=== PATIENT | male | born 1955 | race Caucasian/White ===

== ENCOUNTER 2020-05-08 21:03 | Emergency (ER) | payer OTHER, SELFPAY ==
[2020-05-08 21:13] VITALS: BP 134/55; PULSE 72; RESP 20; TEMP 37; O2SAT 97; BMI 32.4
[2020-05-08 21:26] VITALS: BP 134/55; PULSE 68; RESP 17; TEMP 36.6; O2SAT 98
--- NOTE | 2020-05-08 21:28 | ECG_ITS ---
Test Reason : ACUTE HEADACHE Blood Pressure : / mmHG Vent. Rate : 071 BPM Atrial Rate : 071 BPM P-R Int : 162 ms QRS Dur : 106 ms QT Int : 404 ms P-R-T Axes : -06 -46 -01 degrees QTc Int : 439 ms Normal sinus rhythm Left anterior fascicular block Abnormal ECG When compared with ECG of 19-OCT-2019 18:13, Sinus rhythm has replaced Ectopic atrial rhythm Vent. rate has decreased BY 71 BPM Referred By: Laura Angulo Electronically Signed By:MITRA LOPEZ MD
--- NOTE | 2020-05-08 21:29 | ED.HA ---
HPI - Headache General Chief Complaint: Headache Stated Complaint: Dizziness/Headache Time Seen by Provider: 05/08/20 21:15 Source: patient Mode of arrival: ambulatory Limitations: no limitations History of Present Illness HPI Narrative: This is a 65-year-old male with significant past medical history for alcoholic liver cirrhosis, hep C, hypertension, substance abuse, and portal vein thrombosis on anticoagulation Who presents with acute onset of frontal headache that is associated with nausea and photosensitivity but denies any visual blurring / doubling /loss and otherwise denies changes in hearing or speech as well as denies any unilateral numbness /tingling /weakness. Patient states that he took an Advil but it has had little affect. He denies any nasal congestion or runny nose, denies fevers / chills /shortness of breath /chest pain / palpitations / abdominal discomfort. Patient self endorses that he has continued to smoke cigarettes and last had 3 alcoholic beverages earlier in the evening. Related Data Allergies Allergy/AdvReac Type Severity Reaction Status Date / Time No Known Allergies Allergy Verified 05/08/20 21:18 [No Known Allergies*] Review of Systems Review of Systems: Pertinent positives and negatives as stated in HPI and 10 point review of systems otherwise negative. PMFSH Past Medical History Source: nursing notes reviewed Medical History Cirrhosis HTN (hypertension) Social History Social History Alcohol intake: current Smoking Status: Current every day smoker Use of substances other than those prescribed or required for medical reasons: Yes Substance Use Type: Heroin Advance Directives: No Advance Directives Information Provided: Yes Physical Exam Vital Signs: Vital Signs: Vital Signs Temp Pulse Resp BP Pulse Ox 05/08/20 21:26 98 F 68 17 134/55 L 98 05/08/20 21:13 98.6 F 72 20 134/55 L 97 Body Mass Index 32.4 VITAL SIGNS: Reviewed. GENERAL: Well developed, well nourished, in no acute distress. HEAD: Normocephalic/atraumatic, No tenderness noted on palpation over frontal or maxillary sinuses. EYES: PERRLA, EOMI intact without pain, no nystagmus/pallor/icterus noted EARS: Ext canals without abnormality, TMs non-bulging and non-erythematous NOSE: Nares patent bilateral OROPHARYNX: no oral lesions noted, posterior pharynx clear and non-erythematous without noted tonsillar enlargement/erythema/exudates NECK: Supple, no adenopathy LUNGS: Normal breath sounds. No adventitious sounds or accessory muscle use. SpO2<97> CARDIOVASCULAR: Regular rate and rhythm without noted murmurs, no JVD or lower extremity edema. ABDOMEN: Soft, non-tender, non-distended with bowel sounds. No rigidity. No guarding. No palpable masses or hernias noted MUSCULOSKELETAL: No tenderness, deformities, or effusions noted on gross inspection. EXTREMITIES: No cyanosis, clubbing or edema , stigmata of venous stasis with thickened and darkened skin over bilateral lower extremities. SKIN: Inspection of the skin reveals no rashes, ulcerations, jaundice, pallor, or petechiae. NEUROLOGIC: Alert and oriented x 4. Strength and sensation to light touch were grossly intact x 4. Course Course Course Narrative: This is a 65-year-old male with history and clinical presentation concerning for a possible intracranial bleed given new onset of headaches without evidence to support sinus etiology and given history alcohol use and currently on anticoagulation. Review of all investigations is negative for any acute findings, most importantly CT of the head is negative for evidence of intracranial hemorrhage and INR is again noted to be subtherapeutic when compared to 04/03/2020. Suspect patient is likely for getting his medication IC continues to consume alcohol and use illicit substances. On re-evaluation patient states that his symptoms have begun to improve and he was counseled on resuming his blood thinner and following up with his primary care provider. Patient is discharged to home in stable condition. MDM - Headache Lab Data Result diagrams: 05/08/20 22:18 05/08/20 22:18 Labs: Lab Results 05/08/20 05/08/20 05/08/20 Range/Units 22:18 22:18 22:18 WBC 2.6 L (4.8-10.8) X10*3/uL RBC 3.78 L (4.60-5.80) X10*6/uL Hgb 11.6 L (14.0-18.0) g/dl Hct 35.4 L (42-52) % MCV 93.7 (80-98) fL MCH 30.7 (27.0-33.0) pg MCHC 32.8 (31.0-36.0) g/dl RDW 13.2 (11.0-16.0) % Plt Count 68 L (160-400) X10*3/uL MPV 10.7 (9.4-12.4) fL Immature Gran % (Auto) 0.4 (0.0-0.4) % Neut % (Auto) 59.2 (45-73) % Lymph % (Auto) 24.3 (20-40) % Branch % (Auto) 8.2 (2-11) % Eos % (Auto) 6.3 H (0-4) % Baso % (Auto) 1.6 (0-2) % Lymph # (Auto) 0.6 L (1.2-4.9) X10*3/uL Branch # (Auto) 0.2 (0.1-1.2) X10*3/uL Eos # (Auto) 0.2 (0.0-0.4) X10*3/uL Baso # (Auto) 0.0 (0.0-0.2) X10*3/uL Abs Immat Gran (auto) 0.01 (0.00-0.03) X10*3/uL Absolute Neuts (auto) 1.5 L (2.0-8.3) X10*3/uL Absolute Nucleated RBC 0.000 (0.0-0.012) X10*3/uL Nucleated RBC % (auto) 0.0 (0.0-0.2) /100WBC Smear Tech's Comments VERIFIED PT 16.2 H (10.8-13.0) SEC INR 1.4 H (0.9-1.1) Sodium 138 (135-145) mmol/L Potassium 3.9 (3.3-5.1) mmol/l Chloride 108 (96-108) mmol/L Carbon Dioxide 22 (22-29) mmol/L Anion Gap 12 (12-20) BUN 10 (9-16) mg/dL Creatinine 0.79 (0.5-1.4) mg/dL Estim Creat Clear Calc 93.2 Estimated GFR > 60 Random Glucose 97 (60-115) mg/dL Calcium 7.9 L (8.4-10.2) mg/dL Total Bilirubin 0.9 (0.0-1.0) mg/dL AST 30 (5-37) U/L ALT 16 (0-40) U/L Alkaline Phosphatase 91 (39-117) U/L Total Protein 6.4 L (6.5-8.0) g/dL Albumin 3.3 L (3.5-5.0) g/dL ECG Data Attestation: I personally reviewed and interpreted this ECG as follows: Prior ECG tracings: not available for review Interpretation: Normal sinus rhythm, HR- 71, no evidence of acute ischemia, CA/QTC are within normal limits, and QRS-106 Discharge Plan Discharge Clinical Impression: Headache Qualifiers: Headache type: unspecified Headache chronicity pattern: unspecified pattern Intractability: not intractable Qualified Code(s): R51.9 - Headache, unspecified Patient Disposition: Home, Self-Care Instructions: General Headache (ED), Warfarin (By mouth) Additional Instructions: Recommend taking [id number] Tylenol and/or ibuprofen for headache control and consider increasing fluid hydration. Please follow-up with your primary care provider by calling the office in the morning and setting up an appointment. The patient and/or family acknowledge understanding of results (as applicable), diagnosis, treatment plan, need for follow up, and symptoms that should prompt a return to the emergency room. Referrals: Physician,Unknown [Primary Care Provider] - 2 days (For further evaluation of your headache)
--- NOTE | 2020-05-08 21:30 | CT_ITS ---
EXAMINATION: CT HEAD WITHOUT CONTRAST CLINICAL INFORMATION: Headache. On Coumadin. COMPARISON: CT head 03/28/2019 TECHNIQUE: Contiguous axial imaging was performed from the skull base to vertex without intravenous administration of contrast. This CT examination was performed using dose optimization techniques as appropriate, variously including the following: *Automated exposure control *Adjustment of mA and/or kV according to patient size (this includes techniques or standardized protocols for targeted exams where dose is matched to indication/reason for exam; i.e. extremities or head) *Use of iterative reconstruction technique DLP: 738 mGy-cm FINDINGS: There is no evidence of acute intracranial hemorrhage or territorial infarction. No abnormal mass effect or midline shift is seen. Felder to white matter differentiation is well preserved. No extra-axial fluid collections are identified. There is age-appropriate atrophy with prominence of the ventricles and the sulci. There are vascular calcifications of the internal carotid arteries bilaterally. The osseous structures and soft tissues are normal. The mastoid air cells and visualized portions of the paranasal sinuses are well aerated. CT/CT head/brain wo con IMPRESSION: No acute intracranial pathology.
--- NOTE | 2020-05-08 22:07 | XR_ITS ---
EXAMINATION: XR CHEST CLINICAL INFORMATION: Cough COMPARISON: Chest radiograph 10/13/2019 and CTA chest 10/19/2019 TECHNIQUE: Frontal view of the chest was obtained. FINDINGS: Compared with the prior study, lung volumes are improved. Chronic interstitial markings remain present. Heart size within normal limits. No evidence of CHF. No acute infiltrates/consolidation, effusions or lung masses seen. XR/XR chest 1V IMPRESSION: No acute intrathoracic disease
[2020-05-08 22:27] LABS: Basophils Percent Auto 1.6 % (0-2); Eosinophils Absolute Auto 0.2 X10*3/uL (0.0-0.4); Eosinophils Percent Auto 6.3 % (0-4); Hematocrit 35.4 % (42-52); Hemoglobin 11.6 g/dl (14.0-18.0); Imm Gran Abs Auto 0.01 X10*3/uL (0.00-0.03); Imm Gran Pct Auto 0.4 % (0.0-0.4); Lymphocytes Absolute Auto 0.6 X10*3/uL (1.2-4.9); Lymphocytes Percent Auto 24.3 % (20-40); MANUAL DIFF FLAG SCAN; Mean Corpuscular HGB Conc 32.8 g/dl (31.0-36.0); Mean Corpuscular Hemoglobin 30.7 pg (27.0-33.0); Mean Corpuscular Volume 93.7 fL (80-98); Mean Platelet Volume 10.7 fL (9.4-12.4); Monocytes Absolute Auto 0.2 X10*3/uL (0.1-1.2); Monocytes Percent Auto 8.2 % (2-11); Neutrophils Absolute Auto 1.5 X10*3/uL (2.0-8.3); Neutrophils Percent Auto 59.2 % (45-73); Red Blood Count 3.78 X10*6/uL (4.60-5.80); Red Cell Distribution Width 13.2 % (11.0-16.0); SCAN SMEAR FLAG 1; White Blood Count 2.6 X10*3/uL (4.8-10.8)
[2020-05-08 22:34] LABS: INTERNATIONAL NORM RATIO 1.4 (0.9-1.1); Prothrombin Time 16.2 SEC (10.8-13.0)
[2020-05-08 22:46] LABS: Platelet Count 68 X10*3/uL (160-400); SLIDE REVIEW VERIFIED
[2020-05-08 22:50] LABS: Alanine Aminotransferase 16 U/L (0-40); Albumin Level 3.3 g/dL (3.5-5.0); Alkaline Phosphatase 91 U/L (39-117); Anion Gap 12 (12-20); Aspartate Amino Transferase 30 U/L (5-37); Bilirubin Total 0.9 mg/dL (0.0-1.0); Blood Urea Nitrogen 10 mg/dL (9-16); Calcium 7.9 mg/dL (8.4-10.2); Carbon Dioxide 22 mmol/L (22-29); Chloride 108 mmol/L (96-108); Creatinine Clr Calc Pharmacy 93.2; Estimated Glomerular Filt Rate > 60; Glucose Random 97 mg/dL (60-115); Potassium 3.9 mmol/l (3.3-5.1); Sodium 138 mmol/L (135-145); Total Protein 6.4 g/dL (6.5-8.0)
[2020-05-08] MEDS: Acetaminophen 325 MG TABLET 975 MG PO (23:09)
[2020-05-08] MEDS: Ketorolac Tromethamine 15 MG/ML VIAL IM (23:10)
[2020-05-09 00:08] LABS: Glucose Urine UA NEG (NEG); Leukocyte Esterase Urine NEG (NEG); Nitrite Urine NEG (NEG); Urine Blood TRACE (NEG); Urine Ketones NEG (NEG); Urine Protein NEG (NEG-TRACE)
[2020-05-09 00:10] LABS: Appearance Urine CLEAR; Color Urine YELLOW
[2020-05-09 00:19] LABS: Bacteria Urine TRACE /LPF; RBC Urine 0-2 /HPF (0); Squamous Epithelial Cell Urine TRACE /LPF; WBC Urine 0-2 /HPF (0-4)
== END 2020-05-09 01:04 | disposition home or self-care (01) ==
PROVIDERS: Emergency Provider Student in an Organized Health Care Education/Training Program
DX: R51.9 Headache, unspecified (principal); R42 Dizziness and giddiness; F11.90 Opioid use, unspecified, uncomplicated; I10 Essential (primary) hypertension; F17.200 Nicotine dependence, unspecified, uncomplicated; Z71.6 Tobacco abuse counseling; Z79.899 Other long term (current) drug therapy
CPT/HCPCS: 36415; 70450; 71045; 80053; 81001; 85025; 85610; 93005; 96372; 99284; J1885

== ENCOUNTER → 2020-05-14 08:46 | Outpatient (BNVA) | payer OTHER, SELFPAY | PROVIDERS: PCP Internal Medicine; Visit Provider Internal Medicine | DX: I26.99 Other pulmonary embolism without acute cor pulmonale (principal); Z51.81 Encounter for therapeutic drug level monitoring; Z79.01 Long term (current) use of anticoagulants | CPT/HCPCS: 85610; 99211 ==

== ENCOUNTER → 2020-05-17 11:09 | Outpatient (BNVA) | payer OTHER, SELFPAY | PROVIDERS: PCP Internal Medicine; Referring Provider Internal Medicine; Visit Provider Internal Medicine | DX: I26.99 Other pulmonary embolism without acute cor pulmonale (principal); Z51.81 Encounter for therapeutic drug level monitoring; Z79.01 Long term (current) use of anticoagulants | CPT/HCPCS: 85610; 99211 ==

== ENCOUNTER → 2020-05-23 10:28 | Outpatient (BNVA) | payer OTHER, SELFPAY | PROVIDERS: PCP Internal Medicine; Visit Provider Internal Medicine | DX: I26.99 Other pulmonary embolism without acute cor pulmonale (principal); Z51.81 Encounter for therapeutic drug level monitoring; Z79.01 Long term (current) use of anticoagulants | CPT/HCPCS: 85610; 99211 ==

== ENCOUNTER → 2020-05-28 09:17 | Outpatient (BNVA) | payer OTHER, SELFPAY | PROVIDERS: PCP Internal Medicine; Visit Provider Internal Medicine | DX: I26.99 Other pulmonary embolism without acute cor pulmonale (principal); Z51.81 Encounter for therapeutic drug level monitoring; Z79.01 Long term (current) use of anticoagulants | CPT/HCPCS: 85610; 99211 ==

== ENCOUNTER → 2020-06-04 09:33 | Outpatient (BNVA) | payer OTHER, SELFPAY | PROVIDERS: PCP Internal Medicine; Visit Provider Internal Medicine | DX: I26.99 Other pulmonary embolism without acute cor pulmonale (principal); Z79.01 Long term (current) use of anticoagulants; Z51.81 Encounter for therapeutic drug level monitoring | CPT/HCPCS: 85610; 99211 ==

== ENCOUNTER → 2020-06-11 09:49 | Outpatient (BNVA) | payer OTHER, SELFPAY | PROVIDERS: PCP Internal Medicine; Visit Provider Internal Medicine | DX: I26.99 Other pulmonary embolism without acute cor pulmonale (principal); Z79.01 Long term (current) use of anticoagulants; Z51.81 Encounter for therapeutic drug level monitoring | CPT/HCPCS: 85610 ==

== ENCOUNTER → 2020-06-14 11:30 | Outpatient (BNVA) | payer OTHER, SELFPAY | PROVIDERS: PCP Internal Medicine; Visit Provider Internal Medicine | DX: I26.99 Other pulmonary embolism without acute cor pulmonale (principal); Z51.81 Encounter for therapeutic drug level monitoring; Z79.01 Long term (current) use of anticoagulants | CPT/HCPCS: 85610; 99211 ==

== ENCOUNTER → 2020-06-26 10:13 | Outpatient (BNVA) | payer OTHER, SELFPAY | PROVIDERS: PCP Internal Medicine; Visit Provider Internal Medicine | DX: I26.99 Other pulmonary embolism without acute cor pulmonale (principal); Z79.01 Long term (current) use of anticoagulants; Z51.81 Encounter for therapeutic drug level monitoring | CPT/HCPCS: 85610; 99211 ==

== ENCOUNTER → 2020-07-10 11:11 | Outpatient (BNVA) | payer OTHER, SELFPAY | PROVIDERS: PCP Internal Medicine; Visit Provider Internal Medicine | DX: I26.99 Other pulmonary embolism without acute cor pulmonale (principal); Z51.81 Encounter for therapeutic drug level monitoring; Z79.01 Long term (current) use of anticoagulants | CPT/HCPCS: 85610; 99211 ==

== ENCOUNTER → 2020-07-15 11:18 | Outpatient (BNVA) | payer OTHER, SELFPAY | PROVIDERS: PCP Internal Medicine; Visit Provider Internal Medicine | DX: I26.99 Other pulmonary embolism without acute cor pulmonale (principal); Z79.01 Long term (current) use of anticoagulants; Z51.81 Encounter for therapeutic drug level monitoring | CPT/HCPCS: 85610; 99211 ==

== ENCOUNTER → 2020-07-18 11:00 | Outpatient (BNVA) | payer OTHER, SELFPAY | PROVIDERS: PCP Internal Medicine; Visit Provider Internal Medicine | DX: I26.99 Other pulmonary embolism without acute cor pulmonale (principal); Z51.81 Encounter for therapeutic drug level monitoring; Z79.01 Long term (current) use of anticoagulants | CPT/HCPCS: 85610; 99211 ==

== ENCOUNTER → 2020-07-25 11:14 | Outpatient (BNVA) | payer OTHER, SELFPAY | PROVIDERS: PCP Internal Medicine; Visit Provider Internal Medicine | DX: I26.99 Other pulmonary embolism without acute cor pulmonale (principal); Z51.81 Encounter for therapeutic drug level monitoring; Z79.01 Long term (current) use of anticoagulants | CPT/HCPCS: 85610; 99211 ==

== ENCOUNTER → 2020-08-28 11:27 | Outpatient (BNVA) | payer OTHER, SELFPAY | PROVIDERS: PCP Internal Medicine; Visit Provider Internal Medicine | DX: I26.99 Other pulmonary embolism without acute cor pulmonale (principal); Z51.81 Encounter for therapeutic drug level monitoring; Z79.01 Long term (current) use of anticoagulants | CPT/HCPCS: 85610; 99211 ==

== ENCOUNTER → 2020-09-27 09:36 | Outpatient (BNVA) | payer OTHER, SELFPAY | PROVIDERS: PCP Internal Medicine; Visit Provider Internal Medicine | DX: I26.99 Other pulmonary embolism without acute cor pulmonale (principal); Z51.81 Encounter for therapeutic drug level monitoring; Z79.01 Long term (current) use of anticoagulants | CPT/HCPCS: 85610; 99211 ==

== ENCOUNTER 2020-10-15 10:14 | Outpatient (REF) | payer OTHER, SELFPAY ==
[2020-10-15 11:11] LABS: MANUAL DIFF FLAG NO
[2020-10-15 11:33] LABS: Basophils Absolute Auto 0.1 X10*3/uL (0.0-0.2); Basophils Percent Auto 1.2 % (0-2); Eosinophils Absolute Auto 0.3 X10*3/uL (0.0-0.4); Eosinophils Percent Auto 6.4 % (0-4); Hematocrit 40.4 % (42-52); Hemoglobin 13.5 g/dl (14.0-18.0); Imm Gran Abs Auto 0.02 X10*3/uL (0.00-0.03); Imm Gran Pct Auto 0.5 % (0.0-0.4); Lymphocytes Percent Auto 22.6 % (20-40); Mean Corpuscular HGB Conc 33.4 g/dl (31.0-36.0); Mean Corpuscular Hemoglobin 30.1 pg (27.0-33.0); Mean Corpuscular Volume 90.2 fL (80-98); Mean Platelet Volume 11.5 fL (9.4-12.4); Monocytes Absolute Auto 0.4 X10*3/uL (0.1-1.2); Monocytes Percent Auto 8.6 % (2-11); Neutrophils Absolute Auto 2.6 X10*3/uL (2.0-8.3); Neutrophils Percent Auto 60.7 % (45-73); Red Blood Count 4.48 X10*6/uL (4.60-5.80); Red Cell Distribution Width 14.4 % (11.0-16.0); White Blood Count 4.2 X10*3/uL (4.8-10.8)
[2020-10-15 11:53] LABS: Alanine Aminotransferase 30 U/L (0-40); Albumin Level 3.9 g/dL (3.5-5.0); Alkaline Phosphatase 119 U/L (39-117); Anion Gap 12 (12-20); Aspartate Amino Transferase 51 U/L (5-37); Bilirubin Total 1.2 mg/dL (0.0-1.0); Blood Urea Nitrogen 14 mg/dL (9-16); Carbon Dioxide 28 mmol/L (22-29); Chloride 101 mmol/L (96-108); Estimated Glomerular Filt Rate > 60; Glucose Random 80 mg/dL (60-115); Platelet Count 87 X10*3/uL (160-400); Sodium 137 mmol/L (135-145); Total Protein 7.4 g/dL (6.5-8.0)
== END 2020-10-15 10:15 | disposition home or self-care (01) ==
LOC: HO.LAB 10:14
PROVIDERS: PCP Internal Medicine; Visit Provider Internal Medicine
DX: I81 Portal vein thrombosis (principal); K72.10 Chronic hepatic failure without coma; R27.0 Ataxia, unspecified; Z79.891 Long term (current) use of opiate analgesic
CPT/HCPCS: 36415; 80053; 85025; 85610; 99211

== ENCOUNTER 2020-11-03 12:02 | Emergency (ER) | payer OTHER, SELFPAY ==
[2020-11-03 12:18] VITALS: BP 147/74; PULSE 81; RESP 16; TEMP 37.2; O2SAT 98; BMI 30.5
--- NOTE | 2020-11-03 13:18 | ED_ITS ---
HPI - Skin/Abscess/Foreign Bdy General Chief complaint: Skin/Abscess/Foreign Body Stated complaint: leg swelling Time Seen by Provider: 11/03/20 12:53 Source: patient Mode of arrival: ambulatory Limitations: no limitations History of Present Illness HPI narrative: Blister to the left anterior ankle for 3 days tender to change shoes. Denies any leg swelling, fever, chest pain, shortness of breath. MD complaint: abscess/boil (Boil) Onset (ago): day(s) Tetanus up to date: yes Location: LLE Severity: mild Relieving factors: none Exacerbating factors: none Context: none Associated symptoms: denies other symptoms Treatments prior to arrival: none Related Data Home Medications Medication Instructions Recorded Confirmed ciprofloxacin HCl 500 mg tablet mg PO 06/26/20 08/28/20 flu vac qs 2019(4 yr up)CD(PF) ml IM 06/26/20 08/28/20 hydroxyzine HCl 25 mg tablet mg PO 06/26/20 08/28/20 ibuprofen 600 mg tablet mg PO 06/26/20 08/28/20 naloxone 4 mg/actuation nasal spray INTRANASAL 06/26/20 08/28/20 nicotine (polacrilex) 4 mg gum mg PO 06/26/20 08/28/20 nicotine 21 mg/24 hr daily 1 patch TOPICAL DAILY 06/26/20 08/28/20 transdermal patch pantoprazole 40 mg tablet,delayed mg PO 06/26/20 08/28/20 release cyanocobalamin (vitamin B-12) 1,000 mcg PO DAILY 08/28/20 08/28/20 1,000 mcg tablet ferrous sulfate 325 mg (65 mg 325 mg PO DAILY 08/28/20 08/28/20 iron) tablet furosemide 40 mg tablet mg PO 08/28/20 08/28/20 potassium chloride 20 mEq meq PO 08/28/20 08/28/20 tablet,extended release(part/cryst) rifaximin 550 mg tablet 550 mg PO BID 08/28/20 08/28/20 Previous Rx's Medication Instructions Recorded warfarin 2 mg tablet 2 mg PO DAILY #90 tab 06/14/20 doxycycline monohydrate 100 mg PO BID 7 Days #14 cap 11/03/20 Allergies Allergy/AdvReac Type Severity Reaction Status Date / Time No Known Allergies Allergy Verified 10/15/20 10:51 [No Known Allergies*] Review of Systems Review of Systems: Constitutional: No Weight loss, No Fever, No Chills, No Night Sweats, No Fatigue, No Malaise ENT/Mouth: No Hearing loss, No Ear Pain, No Nasal Congestion, No Sinus Pain, No Hoarseness, No sore throat, No Rhinorrhea, No Swallowing Difficulty Eyes: No Eye Pain, No Swelling, No Redness, No Foreign Body, No Discharge, No Vision Changes Cardiovascular: No Chest Pain, No SOB, No Dyspnea on Exertion, No Orthopnea, No Edema, No Palpitations Respiratory: No Cough, No Sputum, No Wheezing, No Smoke Exposure, No Dyspnea Gastrointestinal: No Nausea, No Vomiting, No Diarrhea, No Constipation, No abdominal Pain, No Hematochezia, No Melena Genitourinary: No Dysuria, No Urinary Frequency, No Hematuria, No Urinary Incontinence, No Urgency, No Flank Pain, No Urinary Flow Changes, No Hesitancy Musculoskeletal: No joint pain, No Myalgias, No Joint Swelling Skin: No Skin Lesions, No rash, as noted per HPI Neuro: No Weakness, No Numbness, No Paresthesias, No Loss of Consciousness, No Dizziness, No Headache Psych: No Social Issues Heme/Lymph: No Bruising, No Bleeding,No Lymphadenopathy Endocrine: No Polyuria, No Polydipsia, No Temperature Intolerance Yes all other systems are reviewed and are negative [facility] Past Medical History Medical History Cirrhosis HTN (hypertension) Social History Social History Alcohol intake: current Smoking Status: Current every day smoker Substance Use Type: Heroin Advance Directives: No Advance Directives Information Provided: No Physical Exam Vital Signs: Vital Signs: Last Vital Signs Temp 98.9 F 11/03/20 12:18 Pulse 81 11/03/20 12:18 Resp 16 11/03/20 12:18 BP 147/74 H 11/03/20 12:18 Pulse Ox 98 11/03/20 12:18 Body Mass Index 30.5 Reviewed Const: General: cooperative; No acute distress or intoxicated appearing Nutritional Appearance: average body habitus Orientation/consciousness: patient oriented x3 HENMT: Head: Yes normal to inspection Ears: hearing grossly normal bilaterally Eyes: General: appearance normal, both eyes and all related structures Visual Mcallister: normal visual mcallister by confrontation Neck: Neck: Yes normal visual inspection, No positive Brudzinski's sign, No positive Kernig's sign and No tender Thyroid: Thyroid normal Chest: Chest palpation & inspection: normal inspection of the chest Resp: Effort & Inspection: normal respiratory effort Cardio: Jugular venous distension: no JVD Rhythm: regular rhythm Heart sounds: S1 normal heart sound present and S2 normal heart sound present GI: Inspection: Yes normal to inspection Palpation (GI): Soft to palpation Percussion: Yes normal to percussion Auscultation: normal bowel sounds : General: Yes no CVA tenderness Back/Spine/Pelvis: Back: no CVA tenderness Skin: General skin exam: no rashes or lesions noted Full body images: 1. Left medial ankle just above shoe top there is a quarter- size clear fluid-filled vesicle. He was pressing on this or ready is already weeping very small amount of clear fluid. He has no signs of erythema, in fection. Neuro: General: patient oriented x3 Extrem: General: Yes normal to inspection Discharge Plan Discharge Clinical Impression: Boil, leg Patient Disposition: Home, Self-Care Additional Instructions: This is a skin boil likely from the friction from the top of her shoe. Please elevate your legs Do not attempt to pick at her skin Compresses Start the antibiotics as prescribed Have close follow-up to make sure this does not develop into infection Return if any concerns or worsening symptoms including redness, swelling, rash, fever. Thank you Prescriptions: New doxycycline monohydrate 100 mg capsule 100 mg PO BID 7 Days Qty: 14 RF: 0 No Action ferrous sulfate 325 mg (65 mg iron) tablet 325 mg PO DAILY RF: 0 Xifaxan 550 mg tablet 550 mg PO BID RF: 0 cyanocobalamin (vitamin B-12) 1,000 mcg tablet 1,000 mcg PO DAILY RF: 0 furosemide 40 mg tablet PO RF: 0 potassium chloride 20 mEq tablet,ER particles/crystals PO RF: 0 warfarin 2 mg tablet 2 mg PO DAILY Qty: 90 RF: 0 pantoprazole 40 mg tablet,delayed release (DR/EC) PO RF: 0 Narcan 4 mg/actuation spray,non-aerosol intranasal RF: 0 ibuprofen 600 mg tablet PO RF: 0 hydroxyzine HCl 25 mg tablet PO RF: 0 nicotine 21 mg/24 hr patch 24 hour 1 patch topical DAILY RF: 0 nicotine (polacrilex) 4 mg gum PO RF: 0 Flucelvax Quad (PF) 60 mcg (15 mcg x 4)/0.5 mL syringe IM RF: 0 ciprofloxacin HCl 500 mg tablet PO RF: 0 Referrals: Michelle Fatima MD [Primary Care Provider] - 2 days Interventions: ED Discharge Assessment Last Done: 11/03/20 13:53 Discharge Date/Time: 11/03/20 13:54
== END 2020-11-03 13:54 | disposition home or self-care (01) ==
PROVIDERS: Emergency Provider Emergency Medicine; PCP Internal Medicine
DX: L02.426 Furuncle of left lower limb (principal); I10 Essential (primary) hypertension
CPT/HCPCS: 99283

== ENCOUNTER → 2020-11-12 10:52 | Outpatient (BNVA) | payer OTHER, SELFPAY | PROVIDERS: PCP Internal Medicine; Visit Provider Internal Medicine | DX: I26.99 Other pulmonary embolism without acute cor pulmonale (principal); Z51.81 Encounter for therapeutic drug level monitoring; Z79.01 Long term (current) use of anticoagulants | CPT/HCPCS: 85610; 99211 ==

== ENCOUNTER → 2020-12-03 09:02 | Outpatient (BNVA) | payer OTHER, SELFPAY | PROVIDERS: PCP Internal Medicine; Visit Provider Internal Medicine | DX: I26.99 Other pulmonary embolism without acute cor pulmonale (principal); Z51.81 Encounter for therapeutic drug level monitoring; Z79.01 Long term (current) use of anticoagulants | CPT/HCPCS: 85610; 99211 ==

== ENCOUNTER 2020-12-05 17:55 | Emergency (ER) | payer OTHER, SELFPAY ==
--- NOTE | ~2020-12-05 | XR_ITS ---
EXAMINATION: XR CHEST CLINICAL INFORMATION: Chest pain COMPARISON: 05/08/2020 TECHNIQUE: Frontal view of the chest was obtained. FINDINGS: Chronic interstitial markings seen previously appear less prominent on the current study. No acute abnormality is noted involving the heart, lungs, mediastinum, bony thorax or soft tissues. Embolization coils are present in the left upper quadrant. XR/XR chest 1V IMPRESSION: No acute intrathoracic disease.
--- NOTE | 2020-12-05 18:00 | ECG_ITS ---
Test Reason : CHEST PAIN Blood Pressure : / mmHG Vent. Rate : 075 BPM Atrial Rate : 075 BPM P-R Int : 150 ms QRS Dur : 110 ms QT Int : 382 ms P-R-T Axes : 053 -43 015 degrees QTc Int : 426 ms Normal sinus rhythm Left axis deviation Incomplete right bundle branch block Abnormal ECG When compared with ECG of 08-MAY-2020 23:02, Incomplete right bundle branch block is now Present Referred By: Generic ED Physician Electronically Signed By:Foreign Kaiser
[2020-12-05 19:09] VITALS: BP 119/61; PULSE 80; RESP 18; TEMP 37.6; O2SAT 97; BMI 30.7
[2020-12-05 20:00] LABS: Basophils Percent Auto 0.6 % (0-2); Eosinophils Absolute Auto 0.1 X10*3/uL (0.0-0.4); Eosinophils Percent Auto 4.2 % (0-4); Hematocrit 32.8 % (42-52); Hemoglobin 11.2 g/dl (14.0-18.0); Imm Gran Abs Auto 0.02 X10*3/uL (0.00-0.03); Imm Gran Pct Auto 0.6 % (0.0-0.4); Lymphocytes Absolute Auto 0.4 X10*3/uL (1.2-4.9); Lymphocytes Percent Auto 12.5 % (20-40); MANUAL DIFF FLAG SCAN; Mean Corpuscular HGB Conc 34.1 g/dl (31.0-36.0); Mean Corpuscular Hemoglobin 31.1 pg (27.0-33.0); Mean Corpuscular Volume 91.1 fL (80-98); Mean Platelet Volume 10.4 fL (9.4-12.4); Monocytes Absolute Auto 0.3 X10*3/uL (0.1-1.2); Monocytes Percent Auto 8.3 % (2-11); Neutrophils Absolute Auto 2.5 X10*3/uL (2.0-8.3); Neutrophils Percent Auto 73.8 % (45-73); Red Cell Distribution Width 14.6 % (11.0-16.0); SCAN SMEAR FLAG 1; White Blood Count 3.4 X10*3/uL (4.8-10.8)
[2020-12-05 20:17] LABS: Lactic Acid 1.5 mmol/L (0.5-2.0); Platelet Count 51 X10*3/uL (160-400)
[2020-12-05 20:18] LABS: SLIDE REVIEW VERIFIED
[2020-12-05 20:20] LABS: Anion Gap 13 (12-20); Blood Urea Nitrogen 11 mg/dL (9-16); Calcium 9.2 mg/dL (8.4-10.2); Carbon Dioxide 25 mmol/L (22-29); Chloride 103 mmol/L (96-108); Creatinine Clr Calc Pharmacy 85.4; Estimated Glomerular Filt Rate > 60; Glucose Random 101 mg/dL (60-115); Potassium 4.5 mmol/L (3.3-5.1); Sodium 136 mmol/L (135-145)
[2020-12-05 20:23] VITALS: BP 128/77; PULSE 75; RESP 18; TEMP 36.8; O2SAT 98
[2020-12-05 20:27] LABS: Troponin-I High Sensitivity 4.4 ng/L (<3.5-35.0)
--- NOTE | 2020-12-05 21:10 | ED_ITS ---
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 Patient currently denies any chest pain or shortness of breath and states that he has also felt a little nauseous without vomiting although endorses a had 1 episode of nonbloody/nonbilious vomiting yesterday and notes that he has been having ?dark stools?. He denies any alcohol or drug use. Related Data Home Medications Medication Instructions Recorded Confirmed ciprofloxacin HCl 500 mg tablet mg PO 06/26/20 08/28/20 flu vac qs 2019(4 yr up)CD(PF) ml IM 06/26/20 08/28/20 hydroxyzine HCl 25 mg tablet mg PO 06/26/20 08/28/20 ibuprofen 600 mg tablet mg PO 06/26/20 08/28/20 naloxone 4 mg/actuation nasal spray INTRANASAL 06/26/20 08/28/20 nicotine (polacrilex) 4 mg gum mg PO 06/26/20 08/28/20 nicotine 21 mg/24 hr daily 1 patch TOPICAL DAILY 06/26/20 08/28/20 transdermal patch pantoprazole 40 mg tablet,delayed mg PO 06/26/20 08/28/20 release cyanocobalamin (vitamin B-12) 1,000 mcg PO DAILY 08/28/20 08/28/20 1,000 mcg tablet ferrous sulfate 325 mg (65 mg 325 mg PO DAILY 08/28/20 08/28/20 iron) tablet furosemide 40 mg tablet mg PO 08/28/20 08/28/20 potassium chloride 20 mEq meq PO 08/28/20 08/28/20 tablet,extended release(part/cryst) rifaximin 550 mg tablet 550 mg PO BID 08/28/20 08/28/20 Previous Rx's Medication Instructions Recorded warfarin 2 mg tablet 2 mg PO DAILY #90 tab 12/11/20 doxycycline monohydrate 100 mg PO BID 7 Days #14 cap 11/03/20 Allergies Allergy/AdvReac Type Severity Reaction Status Date / Time No Known Allergies Allergy Verified 12/05/20 19:08 [No Known Allergies*] Review of Systems Review of Systems: Pertinent positives and negatives as stated in HPI 10 point review of systems is otherwise negative. [facility], [facility] Past Medical History Source: nursing notes reviewed Medical History Cirrhosis HTN (hypertension) Social History Social History Alcohol intake: current Substance Use Type: Heroin Advance Directives: No Physical Exam Vital Signs: Vital Signs: Last Vital Signs Temp 98.3 F 12/05/20 20:23 Pulse 70 12/06/20 01:14 Resp 18 12/06/20 01:14 BP 121/59 L 12/06/20 01:14 Pulse Ox 95 12/05/20 23:39 Body Mass Index 30.7 VITAL SIGNS: Reviewed. GENERAL: Well developed, well nourished, in no acute distress. HEAD: Normocephalic/atraumatic EYES: PERRLA, EOMI OROPHARYNX: no oral lesions noted, posterior pharynx clear NECK: Supple, no adenopathy LUNGS: Normal breath sounds, no tachypnea, no rales/rhonchi in noted. SpO2<97> CARDIOVASCULAR: Regular rate and rhythm without noted murmurs, + JVD and lower extremity pitting edema. ABDOMEN: Obese, no fluid wave, Soft, chronic tenderness to the right upper abdomen with easily palpated enlarged liver, non-distended with bowel sounds. No rigidity. No guarding. ISRRAEL: No tags or lesions, small firm stool noted in the rectal vault without gross evidence of blood, good rectal tone MUSCULOSKELETAL: No tenderness, deformities, or effusions noted on gross inspection. EXTREMITIES: No cyanosis, there is noted to to 3+ pitting edema bilaterally with palpable DP/PT pulses SKIN: Inspection of the skin reveals darkened, thickened skin to bilateral lower extremities consistent with chronic changes secondary to venous stasis NEUROLOGIC: Alert and oriented x 4. Strength and sensation to light touch were grossly intact x 4. Course Course Course Narrative: 65-year-old male with history and clinical presentation most suggestive of post vaccination symptoms, however given patient's extensive past medical history will evaluate for competing etiologies. Review of all investigations negative for any acute findings from chronic baseline. No acute changes on EKG and serial troponins are flat. Patient's opioids are positive on the urine tox. Otherwise, conclusion is that patient is likely suffering from mild post vaccination symptoms and he was instructed to take Tylenol as needed for symptoms and follow up with his primary care provider. Medical Decision Making Lab Data Result diagrams: 12/05/20 19:52 12/05/20 19:52 Labs: Lab Results 12/05/20 12/05/20 12/05/20 Range/Units 19:52 19:52 19:52 WBC 3.4 L (4.8-10.8) X10*3/uL RBC 3.60 L (4.60-5.80) X10*6/uL Hgb 11.2 L (14.0-18.0) g/dl Hct 32.8 L (42-52) % MCV 91.1 (80-98) fL MCH 31.1 (27.0-33.0) pg MCHC 34.1 (31.0-36.0) g/dl RDW 14.6 (11.0-16.0) % Plt Count 51 L D (160-400) X10*3/uL MPV 10.4 (9.4-12.4) fL Immature Gran % (Auto) 0.6 H (0.0-0.4) % Neut % (Auto) 73.8 H (45-73) % Lymph % (Auto) 12.5 L (20-40) % [facility] % (Auto) 8.3 (2-11) % Eos % (Auto) 4.2 H (0-4) % Baso % (Auto) 0.6 (0-2) % Lymph # (Auto) 0.4 L (1.2-4.9) X10*3/uL [facility] # (Auto) 0.3 (0.1-1.2) X10*3/uL Eos # (Auto) 0.1 (0.0-0.4) X10*3/uL Baso # (Auto) 0.0 (0.0-0.2) X10*3/uL Abs Immat Gran (auto) 0.02 (0.00-0.03) X10*3/uL Absolute Neuts (auto) 2.5 (2.0-8.3) X10*3/uL Absolute Nucleated RBC 0.000 (0.0-0.012) X10*3/uL Nucleated RBC % (auto) 0.0 (0.0-0.2) /100WBC Smear Tech's Comments VERIFIED PT 24.3 H D (10.8-13.0) SEC INR 2.0 H (0.9-1.1) APTT 33.0 (24.1-38.0) SEC Hold Blue Top SEE NOTE Sodium 136 (135-145) mmol/L Potassium 4.5 (3.3-5.1) mmol/L Chloride 103 (96-108) mmol/L Carbon Dioxide 25 (22-29) mmol/L Anion Gap 13 (12-20) BUN 11 (9-16) mg/dL Creatinine 0.87 (0.5-1.4) mg/dL Estim Creat Clear Calc 85.4 Estimated GFR > 60 Random Glucose 101 (60-115) mg/dL Lactic Acid (0.5-2.0) mmol/L Calcium 9.2 (8.4-10.2) mg/dL Total Bilirubin 1.5 H (0.0-1.0) mg/dL Direct Bilirubin 0.6 H (0.0-0.5) mg/dL AST 31 (5-37) U/L ALT 18 (0-40) U/L Alkaline Phosphatase 94 D (39-117) U/L Troponin I High Sens (<3.5-35.0) ng/L B-Natriuretic Peptide (<100) pg/mL Total Protein 6.3 L (6.5-8.0) g/dL Albumin 3.4 L (3.5-5.0) g/dL Lipase 58 (8-78) U/L Urine Color Urine Appearance Urine pH (5.0-8.0) Ur Specific Jackson (1.005-1.025) Urine Protein (NEG-TRACE) MG/DL Urine Glucose (UA) (NEG) MG/DL Urine Ketones (NEG) MG/DL Urine Blood (NEG) Urine Nitrite (NEG) Ur Leukocyte Esterase (NEG) Urine RBC (0) /HPF Urine WBC (0-4) /HPF Ur Squamous Epith Cells /LPF Urine Bacteria /LPF Stool Occult Blood (NEGATIVE) Urine Opiates Screen (Not Detect) Ur Barbiturates Screen (Not Detect) Ur Phencyclidine Scrn (Not Detect) Ur Amphetamines Screen (Not Detect) U Benzodiazepines Scrn (Not Detect) Urine Cocaine Screen (Not Detect) U Marijuana (THC) Screen (Not Detect) Ethyl Alcohol mg/dL 12/05/20 12/05/20 12/05/20 Range/Units 19:52 19:52 19:56 WBC (4.8-10.8) X10*3/uL RBC (4.60-5.80) X10*6/uL Hgb (14.0-18.0) g/dl Hct (42-52) % MCV (80-98) fL MCH (27.0-33.0) pg MCHC (31.0-36.0) g/dl RDW (11.0-16.0) % Plt Count (160-400) X10*3/uL MPV (9.4-12.4) fL Immature Gran % (Auto) (0.0-0.4) % Neut % (Auto) (45-73) % Lymph % (Auto) (20-40) % [facility] % (Auto) (2-11) % Eos % (Auto) (0-4) % Baso % (Auto) (0-2) % Lymph # (Auto) (1.2-4.9) X10*3/uL [facility] # (Auto) (0.1-1.2) X10*3/uL Eos # (Auto) (0.0-0.4) X10*3/uL Baso # (Auto) (0.0-0.2) X10*3/uL Abs Immat Gran (auto) (0.00-0.03) X10*3/uL Absolute Neuts (auto) (2.0-8.3) X10*3/uL Absolute Nucleated RBC (0.0-0.012) X10*3/uL Nucleated RBC % (auto) (0.0-0.2) /100WBC Smear Tech's Comments PT (10.8-13.0) SEC INR (0.9-1.1) APTT (24.1-38.0) SEC Hold Blue Top Sodium (135-145) mmol/L Potassium (3.3-5.1) mmol/L Chloride (96-108) mmol/L Carbon Dioxide (22-29) mmol/L Anion Gap (12-20) BUN (9-16) mg/dL Creatinine (0.5-1.4) mg/dL Estim Creat Clear Calc Estimated GFR Random Glucose (60-115) mg/dL Lactic Acid 1.5 (0.5-2.0) mmol/L Calcium (8.4-10.2) mg/dL Total Bilirubin (0.0-1.0) mg/dL Direct Bilirubin (0.0-0.5) mg/dL AST (5-37) U/L ALT (0-40) U/L Alkaline Phosphatase (39-117) U/L Troponin I High Sens 4.4 (<3.5-35.0) ng/L B-Natriuretic Peptide 32 (<100) pg/mL Total Protein (6.5-8.0) g/dL Albumin (3.5-5.0) g/dL Lipase (8-78) U/L Urine Color Urine Appearance Urine pH (5.0-8.0) Ur Specific Jackson (1.005-1.025) Urine Protein (NEG-TRACE) MG/DL Urine Glucose (UA) (NEG) MG/DL Urine Ketones (NEG) MG/DL Urine Blood (NEG) Urine Nitrite (NEG) Ur Leukocyte Esterase (NEG) Urine RBC (0) /HPF Urine WBC (0-4) /HPF Ur Squamous Epith Cells /LPF Urine Bacteria /LPF Stool Occult Blood (NEGATIVE) Urine Opiates Screen (Not Detect) Ur Barbiturates Screen (Not Detect) Ur Phencyclidine Scrn (Not Detect) Ur Amphetamines Screen (Not Detect) U Benzodiazepines Scrn (Not Detect) Urine Cocaine Screen (Not Detect) U Marijuana (THC) Screen (Not Detect) Ethyl Alcohol < 10 mg/dL 12/05/20 12/05/20 12/05/20 Range/Units 21:49 21:49 21:49 WBC (4.8-10.8) X10*3/uL RBC (4.60-5.80) X10*6/uL Hgb (14.0-18.0) g/dl Hct (42-52) % MCV (80-98) fL MCH (27.0-33.0) pg MCHC (31.0-36.0) g/dl RDW (11.0-16.0) % Plt Count (160-400) X10*3/uL MPV (9.4-12.4) fL Immature Gran % (Auto) (0.0-0.4) % Neut % (Auto) (45-73) % Lymph % (Auto) (20-40) % [facility] % (Auto) (2-11) % Eos % (Auto) (0-4) % Baso % (Auto) (0-2) % Lymph # (Auto) (1.2-4.9) X10*3/uL [facility] # (Auto) (0.1-1.2) X10*3/uL Eos # (Auto) (0.0-0.4) X10*3/uL Baso # (Auto) (0.0-0.2) X10*3/uL Abs Immat Gran (auto) (0.00-0.03) X10*3/uL Absolute Neuts (auto) (2.0-8.3) X10*3/uL Absolute Nucleated RBC (0.0-0.012) X10*3/uL Nucleated RBC % (auto) (0.0-0.2) /100WBC Smear Tech's Comments PT (10.8-13.0) SEC INR (0.9-1.1) APTT (24.1-38.0) SEC Hold Blue Top Sodium (135-145) mmol/L Potassium (3.3-5.1) mmol/L Chloride (96-108) mmol/L Carbon Dioxide (22-29) mmol/L Anion Gap (12-20) BUN (9-16) mg/dL Creatinine (0.5-1.4) mg/dL Estim Creat Clear Calc Estimated GFR Random Glucose (60-115) mg/dL Lactic Acid (0.5-2.0) mmol/L Calcium (8.4-10.2) mg/dL Total Bilirubin (0.0-1.0) mg/dL Direct Bilirubin (0.0-0.5) mg/dL AST (5-37) U/L ALT (0-40) U/L Alkaline Phosphatase (39-117) U/L Troponin I High Sens (<3.5-35.0) ng/L B-Natriuretic Peptide (<100) pg/mL Total Protein (6.5-8.0) g/dL Albumin (3.5-5.0) g/dL Lipase (8-78) U/L Urine Color YELLOW Urine Appearance CLEAR Urine pH 6.0 (5.0-8.0) Ur Specific Jackson 1.010 (1.005-1.025) Urine Protein NEG (NEG-TRACE) MG/DL Urine Glucose (UA) NEG (NEG) MG/DL Urine Ketones NEG (NEG) MG/DL Urine Blood TRACE (NEG) Urine Nitrite NEG (NEG) Ur Leukocyte Esterase NEG (NEG) Urine RBC 1-4 (0) /HPF Urine WBC 0-2 (0-4) /HPF Ur Squamous Epith Cells 1+ /LPF Urine Bacteria NONE /LPF Stool Occult Blood NEGATIVE (NEGATIVE) Urine Opiates Screen POSITIVE H (Not Detect) Ur Barbiturates Screen Not Detected (Not Detect) Ur Phencyclidine Scrn Not Detected (Not Detect) Ur Amphetamines Screen Not Detected (Not Detect) U Benzodiazepines Scrn Not Detected (Not Detect) Urine Cocaine Screen Not Detected (Not Detect) U Marijuana (THC) Screen Not Detected (Not Detect) Ethyl Alcohol mg/dL 12/05/20 Range/Units 23:38 WBC (4.8-10.8) X10*3/uL RBC (4.60-5.80) X10*6/uL Hgb (14.0-18.0) g/dl Hct (42-52) % MCV (80-98) fL MCH (27.0-33.0) pg MCHC (31.0-36.0) g/dl RDW (11.0-16.0) % Plt Count (160-400) X10*3/uL MPV (9.4-12.4) fL Immature Gran % (Auto) (0.0-0.4) % Neut % (Auto) (45-73) % Lymph % (Auto) (20-40) % [facility] % (Auto) (2-11) % Eos % (Auto) (0-4) % Baso % (Auto) (0-2) % Lymph # (Auto) (1.2-4.9) X10*3/uL [facility] # (Auto) (0.1-1.2) X10*3/uL Eos # (Auto) (0.0-0.4) X10*3/uL Baso # (Auto) (0.0-0.2) X10*3/uL Abs Immat Gran (auto) (0.00-0.03) X10*3/uL Absolute Neuts (auto) (2.0-8.3) X10*3/uL Absolute Nucleated RBC (0.0-0.012) X10*3/uL Nucleated RBC % (auto) (0.0-0.2) /100WBC Smear Tech's Comments PT (10.8-13.0) SEC INR (0.9-1.1) APTT (24.1-38.0) SEC Hold Blue Top Sodium (135-145) mmol/L Potassium (3.3-5.1) mmol/L Chloride (96-108) mmol/L Carbon Dioxide (22-29) mmol/L Anion Gap (12-20) BUN (9-16) mg/dL Creatinine (0.5-1.4) mg/dL Estim Creat Clear Calc Estimated GFR Random Glucose (60-115) mg/dL Lactic Acid (0.5-2.0) mmol/L Calcium (8.4-10.2) mg/dL Total Bilirubin (0.0-1.0) mg/dL Direct Bilirubin (0.0-0.5) mg/dL AST (5-37) U/L ALT (0-40) U/L Alkaline Phosphatase (39-117) U/L Troponin I High Sens 4.5 (<3.5-35.0) ng/L B-Natriuretic Peptide (<100) pg/mL Total Protein (6.5-8.0) g/dL Albumin (3.5-5.0) g/dL Lipase (8-78) U/L Urine Color Urine Appearance Urine pH (5.0-8.0) Ur Specific Jackson (1.005-1.025) Urine Protein (NEG-TRACE) MG/DL Urine Glucose (UA) (NEG) MG/DL Urine Ketones (NEG) MG/DL Urine Blood (NEG) Urine Nitrite (NEG) Ur Leukocyte Esterase (NEG) Urine RBC (0) /HPF Urine WBC (0-4) /HPF Ur Squamous Epith Cells /LPF Urine Bacteria /LPF Stool Occult Blood (NEGATIVE) Urine Opiates Screen (Not Detect) Ur Barbiturates Screen (Not Detect) Ur Phencyclidine Scrn (Not Detect) Ur Amphetamines Screen (Not Detect) U Benzodiazepines Scrn (Not Detect) Urine Cocaine Screen (Not Detect) U Marijuana (THC) Screen (Not Detect) Ethyl Alcohol mg/dL ECG Data Attestation: I personally reviewed and interpreted this ECG as follows: Prior ECG tracings: available for review (05/08/2020 no acute changes on comparison) Interpretation: Normal sinus rhythm, HR -75, no evidence of acute ischemia, LA/QTC are within normal limits. Discharge Plan Discharge Clinical Impression: Fatigue, Body aches Patient Disposition: Home, Self-Care Instructions: Fatigue (ED), Weakness (ED) Additional Instructions: 1. Please for resume all home medications as prescribed. 2. Please follow-up with your primary care provider today to set up an appointment for re-evaluation. Return to the ER for any acute worsening of your symptoms. Prescriptions: No Action doxycycline monohydrate 100 mg capsule 100 mg PO BID 7 Days Qty: 14 RF: 0 ferrous sulfate 325 mg (65 mg iron) tablet 325 mg PO DAILY RF: 0 Xifaxan 550 mg tablet 550 mg PO BID RF: 0 cyanocobalamin (vitamin B-12) 1,000 mcg tablet 1,000 mcg PO DAILY RF: 0 furosemide 40 mg tablet PO RF: 0 potassium chloride 20 mEq tablet,ER particles/crystals PO RF: 0 warfarin 2 mg tablet 2 mg PO DAILY Qty: 90 RF: 0 pantoprazole 40 mg tablet,delayed release (DR/EC) PO RF: 0 Narcan 4 mg/actuation spray,non-aerosol intranasal RF: 0 ibuprofen 600 mg tablet PO RF: 0 hydroxyzine HCl 25 mg tablet PO RF: 0 nicotine 21 mg/24 hr patch 24 hour 1 patch topical DAILY RF: 0 nicotine (polacrilex) 4 mg gum PO RF: 0 Flucelvax Quad (PF) 60 mcg (15 mcg x 4)/0.5 mL syringe IM RF: 0 ciprofloxacin HCl 500 mg tablet PO RF: 0 Referrals: Michelle Fatima MD [Primary Care Provider] - 2 days (Please re-evaluate this patient who was seen for most likely post vaccinations symptoms on 12/06.)
[2020-12-05 21:17] VITALS: BP 119/83; PULSE 68; RESP 16; O2SAT 97
[2020-12-05 21:23] LABS: Prothrombin Time 24.3 SEC (10.8-13.0)
[2020-12-05 21:28] LABS: Ethanol < 10 mg/dL
[2020-12-05 21:32] LABS: Alanine Aminotransferase 18 U/L (0-40); Albumin Level 3.4 g/dL (3.5-5.0); Alkaline Phosphatase 94 U/L (39-117); Aspartate Amino Transferase 31 U/L (5-37); Bilirubin Direct 0.6 mg/dL (0.0-0.5); Bilirubin Total 1.5 mg/dL (0.0-1.0); Total Protein 6.3 g/dL (6.5-8.0)
[2020-12-05 21:57] LABS: Glucose Urine UA NEG (NEG); Leukocyte Esterase Urine NEG (NEG); Nitrite Urine NEG (NEG); Urine Blood TRACE (NEG); Urine Ketones NEG (NEG); Urine Protein NEG (NEG-TRACE)
[2020-12-05 22:00] VITALS: RESP 18
[2020-12-05 22:00] LABS: Appearance Urine CLEAR; Color Urine YELLOW
[2020-12-05 22:12] LABS: Squamous Epithelial Cell Urine 1+ /LPF; WBC Urine 0-2 /HPF (0-4)
[2020-12-05 22:20] LABS: Amphetamine Screen Urine Not Detected (Not Detect); Barbiturates, Urine Not Detected (Not Detect); Benzodiazepines Screen Urine Not Detected (Not Detect); Cannabinoid Screen Urine Not Detected (Not Detect); Cocaine Screen Urine Not Detected (Not Detect); Opiate Screen Urine POSITIVE (Not Detect); Phencyclidine Screen Urine Not Detected (Not Detect)
[2020-12-05 22:40] LABS: OBS Int Ctl Valid YES; OBS1 NEGATIVE (NEGATIVE)
[2020-12-05 23:39] VITALS: BP 121/59; PULSE 70; RESP 18; O2SAT 95
[2020-12-05 23:42] LABS: Lipase 58 U/L (8-78)
[2020-12-05] MEDS: Acetaminophen 325 MG TABLET 975 MG PO (23:42)
[2020-12-05 23:46] LABS: B Type Natriuretic Peptide 32 pg/mL (<100)
[2020-12-06 00:05] LABS: Troponin-I High Sensitivity 4.5 ng/L (<3.5-35.0)
--- NOTE | 2020-12-06 01:07 | PC.NURSE ---
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 pt states his niece comes and helps him with his groceries and getting things for him as need, sometimes once a week other times more. pt sat after walking dropped to 93% from 95%.
[2020-12-06 01:14] VITALS: BP 121/59; PULSE 70; RESP 18
== END 2020-12-06 02:34 | disposition home or self-care (01) ==
PROVIDERS: Emergency Provider Student in an Organized Health Care Education/Training Program; PCP Internal Medicine
DX: R53.83 Other fatigue (principal); R53.1 Weakness; M79.605 Pain in left leg; M79.604 Pain in right leg; R60.0 Localized edema; K72.90 Hepatic failure, unspecified without coma; F10.21 Alcohol dependence, in remission; F11.20 Opioid dependence, uncomplicated; I10 Essential (primary) hypertension; Z79.899 Other long term (current) drug therapy; Z79.01 Long term (current) use of anticoagulants
CPT/HCPCS: 36415; 71045; 80048; 80076; 80307; 81001; 82077; 82272; 83605; 83690; 83880; 84484; 85025; 85610; 85730; 87040; 93005; 99283; 99285

== ENCOUNTER → 2020-12-11 10:44 | Outpatient (BNVA) | payer OTHER, SELFPAY | PROVIDERS: PCP Internal Medicine; Visit Provider Internal Medicine | DX: I26.99 Other pulmonary embolism without acute cor pulmonale (principal); Z51.81 Encounter for therapeutic drug level monitoring; Z79.01 Long term (current) use of anticoagulants | CPT/HCPCS: 85610; 99211 ==

== ENCOUNTER 2020-12-17 09:08 | Outpatient (REF) | payer OTHER, SELFPAY ==
--- NOTE | ~2020-12-17 | US_ITS ---
EXAMINATION: US ABDOMEN COMPLETE AND LIVER DOPPLER EXAM CLINICAL INFORMATION: Evaluate TIPS. COMPARISON: Previous CT of the abdomen and pelvis most recent October 2019. TECHNIQUE: Real-time imaging of the abdominal viscera. Grayscale color and Doppler evaluation of the liver vasculature. Exam is markedly limited due to bowel gas and patient body habitus. FINDINGS: PANCREAS: Not visualized. ABDOMINAL AORTA: Not visualized. INFERIOR VENA CAVA: Not visualized. LIVER: Not well visualized. The liver appears small. No focal liver lesion is seen. There is no biliary duct dilatation. There are gallstones in the gallbladder. Gallbladder wall appears thickened and irregular. The gallbladder wall measures up to 0.8 cm. GALLBLADDER: Normal. The gallbladder is physiologically distended without evidence of stones, sludge, polyps, wall thickening or pericholecystic fluid. COMMON BILE DUCT: Normal in caliber measuring 0.3 cm in diameter. RIGHT KIDNEY: There is a 1.6 x 1.1 x 1.1 cm cyst in the midpole. No hydronephrosis. No renal calculi. The kidney measures 10.4 cm in maximum dimension. LEFT KIDNEY: There is a 1.5 cm cyst in the lower pole. No hydronephrosis. No renal calculi. The kidney measures 12.4 cm in maximum dimension. SPLEEN: The spleen is enlarged. There is a calcification in the spleen. The spleen measures 16.7 cm in maximum dimension. FREE FLUID: None. There is a TIPS shunt from the right hepatic vein to the right portal vein. The TIPS shunt is patent. Peak systolic velocity ranges between 90 to 150 cm/s. The right, main and extrahepatic portal veins are patent with hepatopedal flow. The left portal vein is not visualized. The splenic vein is patent. Gallstones and very thickened gallbladder wall. Enlarged spleen. No ascites. The hepatic artery is not visualized. Middle and right hepatic veins are patent. The left hepatic vein is not visualized. The IVC is patent with normal waveform. US/US duplex arterial venous comp IMPRESSION: Very limited exam. Patent TIPS shunt.
== END 2020-12-17 09:09 | disposition home or self-care (01) ==
LOC: HO.US 09:08
PROVIDERS: PCP Internal Medicine; Visit Provider Internal Medicine
DX: I26.99 Other pulmonary embolism without acute cor pulmonale (principal); K74.60 Unspecified cirrhosis of liver; R18.8 Other ascites; Z51.81 Encounter for therapeutic drug level monitoring; Z79.01 Long term (current) use of anticoagulants
CPT/HCPCS: 76700; 85610; 93975; 99211

== ENCOUNTER 2021-02-10 22:18 | Emergency (ER) | payer OTHER, SELFPAY ==
--- NOTE | ~2021-02-10 | CT_ITS ---
EXAMINATION: NONCONTRAST HEAD CT NONCONTRAST CERVICAL SPINE CT INDICATION INFORMATION: Fall COMPARISON: 05/08/2020 TECHNIQUE: Separate noncontrast CT examinations of the head and cervical spine were performed. Coronal and sagittal images were created for each examination at the technologist workstation. This CT examination was performed using dose optimization techniques as appropriate, variously including the following: *Automated exposure control *Adjustment of mA and/or kV according to patient size (this includes techniques or standardized protocols for targeted exams where dose is matched to indication/reason for exam; i.e. extremities or head) *Use of iterative reconstruction technique DLP: 1153 mGy-cm FINDINGS: Head: There is no evidence of acute intracranial hemorrhage or territorial infarction. No abnormal mass effect or midline shift is seen. Felder to white matter differentiation is well preserved. No extra-axial fluid collections are identified. No hydrocephalus. Proportional prominence of the ventricles and sulcal spaces is consistent with mild volume loss. Patchy periventricular and deep white matter hypoattenuation is consistent with mild small vessel ischemic changes. No acute osseous or soft tissue abnormality. The mastoid air cells are well aerated. Mild opacification of the left frontal sinus, anterior left ethmoid air cells, and bilateral maxillary sinuses. Cervical spine: There is anatomic alignment of the vertebral bodies and posterior elements. The atlantoaxial and atlantooccipital articulations are intact. Vertebral body heights are maintained. There is multilevel intervertebral disc space narrowing with endplate osteophyte formation and facet arthropathy. No evidence of acute fracture. No prevertebral soft tissue swelling. Paraseptal emphysema at the lung apices noted.. The thyroid gland is unremarkable. CT/CT cervical spine wo con IMPRESSION: 1. No acute intracranial finding. 2. No acute fracture or malalignment of the cervical spine. Moderate degenerative change.
--- NOTE | ~2021-02-10 | XR_ITS ---
EXAMINATION: XR HAND, RIGHT CLINICAL INFORMATION: Fall COMPARISON: None TECHNIQUE: 3 views of the right hand FINDINGS: There is an intra-articular fracture of the distal radius with mild impaction. Essentially nondisplaced ulnar styloid fracture. Carpal rows are well aligned. The hand is intact. Diffuse soft tissue swelling of the wrist and hand. XR/XR hand wrist RT IMPRESSION: Mildly impacted intra-articular distal radial fracture. Nondisplaced ulnar styloid fracture.
[2021-02-10 22:28] VITALS: BP 121/76; PULSE 80; RESP 18; TEMP 36.8; O2SAT 95; BMI 33.3
[2021-02-10] MEDS: Acetaminophen 325 MG TABLET 650 MG PO (22:38)
--- NOTE | 2021-02-11 03:31 | ED.FALL ---
HPI - Fall General Chief Complaint: Fall Stated Complaint: fall Time Seen by Provider: 02/11/21 03:31 Source: patient Mode of arrival: ambulatory Limitations: no limitations History of Present Illness HPI Narrative: Patient was walking with his cane tripped and fell backwards hitting his head tried to broke his fallining of pain in the right wrist no loss of consciousness no neck pain no seizures Related Data Home Medications Medication Instructions Recorded Confirmed ciprofloxacin HCl 500 mg tablet mg PO 06/26/20 08/28/20 flu vac qs 2019(4 yr up)CD(PF) ml IM 06/26/20 08/28/20 hydroxyzine HCl 25 mg tablet mg PO 06/26/20 08/28/20 ibuprofen 600 mg tablet mg PO 06/26/20 08/28/20 naloxone 4 mg/actuation nasal spray INTRANASAL 06/26/20 08/28/20 nicotine (polacrilex) 4 mg gum mg PO 06/26/20 08/28/20 nicotine 21 mg/24 hr daily 1 patch TOPICAL DAILY 06/26/20 08/28/20 transdermal patch pantoprazole 40 mg tablet,delayed mg PO 06/26/20 08/28/20 release cyanocobalamin (vitamin B-12) 1,000 mcg PO DAILY 08/28/20 08/28/20 1,000 mcg tablet ferrous sulfate 325 mg (65 mg 325 mg PO DAILY 08/28/20 08/28/20 iron) tablet furosemide 40 mg tablet mg PO 08/28/20 08/28/20 potassium chloride 20 mEq meq PO 08/28/20 08/28/20 tablet,extended release(part/cryst) rifaximin 550 mg tablet 550 mg PO BID 08/28/20 08/28/20 Previous Rx's Medication Instructions Recorded warfarin 2 mg tablet 2 mg PO DAILY #90 tab 06/14/20 doxycycline monohydrate 100 mg 100 mg PO BID 7 Days #14 cap 11/03/20 capsule tramadol 50 mg tablet 50 mg PO Q6H PRN #20 tab 02/11/21 Allergies Allergy/AdvReac Type Severity Reaction Status Date / Time No Known Allergies Allergy Verified 02/10/21 22:28 [No Known Allergies*] Review of Systems Review of Systems: Yes all other systems are reviewed and are negative PMFSH Past Medical History Medical History Cirrhosis HTN (hypertension) Social History Social History Alcohol intake: current Substance Use Type: Heroin Advance Directives: No Advance Directives Information Provided: No Physical Exam Vital Signs: Vital Signs: Last Vital Signs Temp 98.3 F 02/10/21 22:28 Pulse 71 02/11/21 05:11 Resp 16 02/11/21 05:17 BP 139/79 02/11/21 05:11 Pulse Ox 97 02/11/21 05:11 Body Mass Index 33.3 Appearance: Alert. Oriented X3. No acute distress. Eyes: PERRLA, No Nystagmus ENT: Pharynx normal. Oral Mucosa moist Neck: Normal inspection. Neck supple. CVS: Normal heart rate and rhythm. Pulses normal. Respiratory: No respiratory distress. Equal air entry bilateral, no wheezing/rales/rhonchi Abdomen: Soft and nontender. Bowel sounds are present, no mass palpable, no CVA tenderness Skin: Skin warm and dry. Normal skin color. Normal skin turgor. Extremities: No lower extremity edema. No calf tenderness , right wrist swollen tender Neuro: Oriented X 3. No motor deficit. No sensory deficit.No cerebellar signs , cranial nerves II-XII intact Procedures Orthopedic Splinting/Casting Injury #1: Side: right Upper Extremity Injury Location: wrist Upper Extremity Immobilizer: sugar tong splint MDM - Fall MDM Narrative Medical decision making narrative: Patient mechanical fall with right distal radial fracture impacted head CT and C-spine CT is negative will discharge patient home advised to follow-up with ortho. Splint was applied Discharge Plan Discharge Clinical Impression: Fracture of wrist Qualifiers: Encounter type: initial encounter Fracture type: closed Laterality: right Qualified Code(s): S62.101A - Fracture of unspecified carpal bone, right wrist, initial encounter for closed fracture Fall Qualifiers: Encounter type: initial encounter Qualified Code(s): W19.XXXA - Unspecified fall, initial encounter Patient Disposition: Home, Self-Care Instructions: Wrist Fracture in Adults (ED), Head Injury (ED) Additional Instructions: Wear the splint for support Follow-up with orthopedic for further treatment in 2 -3 days Prescriptions: New tramadol 50 mg tablet 50 mg PO Q6H PRN (Reason: pain) Qty: 20 RF: 0 No Action doxycycline monohydrate 100 mg capsule 100 mg PO BID 7 Days Qty: 14 RF: 0 ferrous sulfate 325 mg (65 mg iron) tablet 325 mg PO DAILY RF: 0 Xifaxan 550 mg tablet 550 mg PO BID RF: 0 cyanocobalamin (vitamin B-12) 1,000 mcg tablet 1,000 mcg PO DAILY RF: 0 furosemide 40 mg tablet PO RF: 0 potassium chloride 20 mEq tablet,ER particles/crystals PO RF: 0 warfarin 2 mg tablet 2 mg PO DAILY Qty: 90 RF: 0 pantoprazole 40 mg tablet,delayed release (DR/EC) PO RF: 0 Narcan 4 mg/actuation spray,non-aerosol intranasal RF: 0 ibuprofen 600 mg tablet PO RF: 0 hydroxyzine HCl 25 mg tablet PO RF: 0 nicotine 21 mg/24 hr patch 24 hour 1 patch topical DAILY RF: 0 nicotine (polacrilex) 4 mg gum PO RF: 0 Flucelvax Quad [id number] (PF) 60 mcg (15 mcg x 4)/0.5 mL syringe IM RF: 0 ciprofloxacin HCl 500 mg tablet PO RF: 0 Referrals: Yamil Loza MD [Physician] - 3 days Interventions: ED Discharge Assessment Last Done: 02/11/21 06:00 Discharge Date/Time: 02/11/21 06:01
[2021-02-11 05:11] VITALS: BP 139/79; PULSE 71; RESP 16; O2SAT 97
[2021-02-11 05:17] VITALS: RESP 16
[2021-02-11] MEDS: oxyCODONE HCl Immed Release 5 MG TABLET 10 MG PO (05:28)
== END 2021-02-11 06:01 | disposition home or self-care (01) ==
PROVIDERS: Emergency Provider Internal Medicine; PCP Internal Medicine
DX: S52.571A Other intraarticular fracture of lower end of right radius, initial encounter for closed fracture (principal); S52.614A Nondisplaced fracture of right ulna styloid process, initial encounter for closed fracture; W01.0XXA Fall on same level from slipping, tripping and stumbling without subsequent striking against object, initial encounter; Y93.9 Activity, unspecified; Y92.9 Unspecified place or not applicable; Y99.9 Unspecified external cause status
CPT/HCPCS: 29125; 70450; 72125; 73110; 73130; 99284

== ENCOUNTER 2021-02-24 07:51 | Outpatient (REF) | payer OTHER, SELFPAY ==
--- NOTE | ~2021-02-24 | XR_ITS ---
EXAMINATION: XR WRIST, RIGHT CLINICAL INFORMATION: Radial fracture. COMPARISON: Right hand 02/11/2021. TECHNIQUE: PA, lateral, and oblique views of the right wrist. FINDINGS: There is distal radial fracture with intracranial extension and mild separation of the 2 fragments. There is a nondisplaced fracture ulnar styloid process. There is loss of PIP and DIP joint space all digits. The soft tissues are normal. There is moderate dorsal hand soft tissue swelling. XR/XR wrist RT min 3V IMPRESSION: Distal radial fracture with intra-articular extension and mild separation of fracture fragments, slightly more pronounced than 02/11/2021. There is an ulnar styloid process fracture without displacement. There is moderate dorsal hand soft tissue swelling.
== END 2021-02-24 07:52 | disposition home or self-care (01) ==
LOC: HO.HOSX 07:51
PROVIDERS: Visit Provider Physician Assistant
DX: S52.501A Unspecified fracture of the lower end of right radius, initial encounter for closed fracture (principal)
CPT/HCPCS: 25600; 73110; 99202

== ENCOUNTER 2021-03-03 07:37 | Outpatient (REF) | payer OTHER, SELFPAY ==
--- NOTE | ~2021-03-03 | XR_ITS ---
EXAMINATION: XR WRIST, RIGHT CLINICAL INFORMATION: Pain. COMPARISON: Prior radiographs, most recently 02/24/2021. TECHNIQUE: PA, lateral, and oblique views of the right wrist. FINDINGS: There is bony demineralization. There is stable alignment of an impacted, comminuted fracture of the distal right radius, with intra-articular extension. There is a stable displacement of a fracture of the ulnar styloid. There is narrowing of the radiocarpal joint. There is mild degenerative change of the first carpometacarpal joint. No dislocation is seen. There is generalized soft tissue swelling. No soft tissue gas or foreign body is seen. XR/XR wrist RT min 3V IMPRESSION: There is stable alignment of an impacted, intra-articular fracture of the distal left radius. As well, there is stable alignment of a mildly displaced ulnar styloid fracture.
== END 2021-03-03 07:38 | disposition home or self-care (01) ==
LOC: HO.HOSX 07:37
PROVIDERS: Visit Provider Physician Assistant
DX: S52.501A Unspecified fracture of the lower end of right radius, initial encounter for closed fracture (principal)
CPT/HCPCS: 73110; 99212

== ENCOUNTER 2021-03-14 09:14 | Outpatient (REF) | payer MEDICARE, MEDICAID, SELFPAY ==
[2021-03-14 10:40] LABS: Basophils Percent Auto 1.3 % (0-2); Eosinophils Absolute Auto 0.2 X10*3/uL (0.0-0.4); Eosinophils Percent Auto 8.3 % (0-4); Hematocrit 35.8 % (42-52); Hemoglobin 12.1 g/dl (14.0-18.0); Imm Gran Abs Auto 0.01 X10*3/uL (0.00-0.03); Imm Gran Pct Auto 0.4 % (0.0-0.4); Lymphocytes Absolute Auto 0.5 X10*3/uL (1.2-4.9); Lymphocytes Percent Auto 21.5 % (20-40); MANUAL DIFF FLAG SCAN; Mean Corpuscular HGB Conc 33.8 g/dl (31.0-36.0); Mean Corpuscular Hemoglobin 31.4 pg (27.0-33.0); Mean Platelet Volume 10.5 fL (9.4-12.4); Monocytes Absolute Auto 0.2 X10*3/uL (0.1-1.2); Monocytes Percent Auto 9.2 % (2-11); Neutrophils Absolute Auto 1.4 X10*3/uL (2.0-8.3); Neutrophils Percent Auto 59.3 % (45-73); Red Blood Count 3.85 X10*6/uL (4.60-5.80); Red Cell Distribution Width 14.3 % (11.0-16.0); SCAN SMEAR FLAG 1
[2021-03-14 10:41] LABS: Platelet Count 70 X10*3/uL (160-400); White Blood Count 2.3 X10*3/uL (4.8-10.8)
[2021-03-14 11:03] LABS: Alanine Aminotransferase 21 U/L (0-40); Albumin Level 3.7 g/dL (3.5-5.0); Alkaline Phosphatase 106 U/L (39-117); Anion Gap 11 (12-20); Aspartate Amino Transferase 34 U/L (5-37); Bilirubin Total 1.8 mg/dL (0.0-1.0); Blood Urea Nitrogen 10 mg/dL (9-16); Calcium 9.3 mg/dL (8.4-10.2); Carbon Dioxide 25 mmol/L (22-29); Chloride 108 mmol/L (96-108); Cholesterol 169 mg/dL; Estimated Glomerular Filt Rate > 60; Glucose Fasting 87 mg/dL (60-99); HDL Cholesterol 59 mg/dL; LDL Cholesterol Calculated 89 mg/dl; Potassium 4.5 mmol/L (3.3-5.1); SLIDE REVIEW VERIFIED; Sodium 139 mmol/L (135-145); Total Protein 7.2 g/dL (6.5-8.0); Triglycerides 105 mg/dL
== END 2021-03-14 09:15 | disposition home or self-care (01) ==
LOC: HO.10HDL 09:14
PROVIDERS: Visit Provider Internal Medicine
DX: B18.2 Chronic viral hepatitis C (principal); D69.59 Other secondary thrombocytopenia; K72.10 Chronic hepatic failure without coma; R60.0 Localized edema
CPT/HCPCS: 36415; 80053; 80061; 85025

== ENCOUNTER 2021-03-24 09:19 | Outpatient (REF) | payer MEDICARE, MEDICAID, SELFPAY ==
--- NOTE | ~2021-03-24 | XR_ITS ---
EXAMINATION: XR WRIST, RIGHT CLINICAL INFORMATION: Pain. COMPARISON: Most recent right wrist radiographs dated 03/03/2019. TECHNIQUE: PA, lateral, and oblique views of the right wrist. FINDINGS: Redemonstration of a comminuted distal radial fracture in unchanged anatomic alignment with interval new bone/callus formation. Unchanged ulnar styloid fracture. No acute fracture or dislocation. No osseous erosion. XR/XR wrist RT min 3V IMPRESSION: Comminuted distal radial fracture in unchanged anatomic alignment with interval new bone/callus formation. Stable ulnar styloid fracture.
== END 2021-03-24 09:20 | disposition home or self-care (01) ==
LOC: HO.HOSX 09:19
PROVIDERS: Visit Provider Physician Assistant
DX: S52.501D Unspecified fracture of the lower end of right radius, subsequent encounter for closed fracture with routine healing (principal)
CPT/HCPCS: 29075; 29085; 73110; 99212

== ENCOUNTER → 2021-03-27 09:56 | Outpatient (BNVA) | payer MEDICARE, MEDICAID, SELFPAY | PROVIDERS: Visit Provider Internal Medicine | DX: I26.99 Other pulmonary embolism without acute cor pulmonale (principal); Z51.81 Encounter for therapeutic drug level monitoring; Z79.01 Long term (current) use of anticoagulants | CPT/HCPCS: 85610; 99211 ==

== ENCOUNTER → 2021-04-03 09:31 | Outpatient (BNVA) | payer MEDICARE, MEDICAID, SELFPAY | PROVIDERS: Visit Provider Internal Medicine | DX: I26.99 Other pulmonary embolism without acute cor pulmonale (principal); Z51.81 Encounter for therapeutic drug level monitoring; Z79.01 Long term (current) use of anticoagulants | CPT/HCPCS: 85610; 99211 ==

== ENCOUNTER 2021-04-15 07:08 | Outpatient (REF) | payer MEDICARE, MEDICAID, SELFPAY ==
--- NOTE | ~2021-04-15 | XR_ITS ---
EXAMINATION: XR WRIST, RIGHT CLINICAL INFORMATION: Pain. Fracture followup. COMPARISON: Most recent right wrist radiographs dated 03/24/2021. TECHNIQUE: PA, lateral, and oblique views of the right wrist. FINDINGS: Redemonstration of a comminuted distal radial fracture in unchanged anatomic alignment with mild new bone/callus formation. Ulnar styloid fracture in unchanged anatomic alignment. No osseous erosion. No acute fracture or dislocation. Joint space narrowing with marginal osteophyte at the triscaphe and first carpometacarpal joints, unchanged. XR/XR wrist RT min 3V IMPRESSION: Comminuted distal radial fracture in unchanged anatomic alignment with mild new bone/callus formation. Ulnar styloid fracture in unchanged anatomic alignment.
== END 2021-04-15 07:09 | disposition home or self-care (01) ==
LOC: HO.HOSX 07:08
PROVIDERS: Visit Provider Physician Assistant
DX: S52.501D Unspecified fracture of the lower end of right radius, subsequent encounter for closed fracture with routine healing (principal); Z79.01 Long term (current) use of anticoagulants; Z86.718 Personal history of other venous thrombosis and embolism
CPT/HCPCS: 73110; 99212

== ENCOUNTER 2021-04-18 13:25 | Emergency (ER) | payer MEDICARE, MEDICAID, SELFPAY ==
[2021-04-18 13:33] VITALS: BP 133/82; PULSE 83; O2SAT 97
== END 2021-04-18 15:36 | disposition left against medical advice (07) ==
PROVIDERS: Emergency Provider Emergency Medicine; PCP Internal Medicine
DX: Z04.1 Encounter for examination and observation following transport accident (principal)

== ENCOUNTER 2021-05-27 07:08 | Outpatient (REF) | payer MEDICARE, MEDICAID, SELFPAY ==
--- NOTE | ~2021-05-27 | XR_ITS ---
EXAMINATION: XR WRIST, RIGHT CLINICAL INFORMATION: M25.539 - Pain in unspecified wrist. Fractures distal radius and ulnar, follow-up. COMPARISON: Radiographs right wrist 04/15/2021, 03/24/2021 TECHNIQUE: PA, lateral, and oblique views of the right wrist. FINDINGS: The impacted comminuted intra-articular fracture distal radius shows continued interval healing with fracture lines less distinct. There is no change in alignment. The fracture base ulnar styloid shows no change in alignment. There is no dislocation or destructive process. XR/XR wrist RT min 3V IMPRESSION: Healing fractures distal radius and ulnar styloid. No change in alignment.
== END 2021-05-27 07:09 | disposition home or self-care (01) ==
LOC: HO.HOSX 07:08
PROVIDERS: Visit Provider Physician Assistant
DX: S52.501D Unspecified fracture of the lower end of right radius, subsequent encounter for closed fracture with routine healing (principal)
CPT/HCPCS: 73110; 99212

== ENCOUNTER 2021-11-03 10:57 | Outpatient (REF) | payer MEDICARE, MEDICAID, SELFPAY | END 2021-11-03 10:58 | disposition home or self-care (01) | LOC: HO.10HDL 10:57 | PROVIDERS: Visit Provider Internal Medicine | DX: Z13.89 Encounter for screening for other disorder (principal) ==

== ENCOUNTER 2021-11-17 08:37 | Outpatient (REF) | payer MEDICARE, MEDICAID, SELFPAY ==
[2021-11-17 09:06] LABS: Basophils Percent Auto 1.6 % (0-2); Eosinophils Absolute Auto 0.2 X10*3/uL (0.0-0.4); Eosinophils Percent Auto 8.5 % (0-4); Hematocrit 38.7 % (42.0-52.0); Hemoglobin 12.6 g/dl (14.0-18.0); Imm Gran Abs Auto 0.01 X10*3/uL (0.00-0.03); Imm Gran Pct Auto 0.4 % (0.0-0.4); Lymphocytes Absolute Auto 0.5 X10*3/uL (1.2-4.9); Lymphocytes Percent Auto 21.5 % (20-40); Mean Corpuscular HGB Conc 32.6 g/dl (31.0-36.0); Mean Corpuscular Volume 95.1 fL (80.0-98.0); Mean Platelet Volume 10.3 fL (9.4-12.4); Monocytes Absolute Auto 0.2 X10*3/uL (0.1-1.2); Monocytes Percent Auto 9.3 % (2-11); Neutrophils Absolute Auto 1.4 x10*3/uL (2.0-8.3); Neutrophils Percent Auto 58.7 % (45-73); Red Blood Count 4.07 X10*6/uL (4.60-5.80); Red Cell Distribution Width 14.5 % (11.0-16.0)
[2021-11-17 09:07] LABS: Platelet Count 89 X10*3/uL (160-400); White Blood Count 2.5 X10*3/uL (4.8-10.8)
[2021-11-17 09:10] LABS: INTERNATIONAL NORM RATIO 1.4 (0.9-1.1); Prothrombin Time 15.5 SEC (9.9-13.0)
[2021-11-17 09:15] LABS: Ammonia 85 umol/L (13-55)
[2021-11-17 09:34] LABS: Alanine Aminotransferase 23 U/L (0-40); Albumin Level 3.3 g/dL (3.5-5.0); Alkaline Phosphatase 115 U/L (39-117); Aspartate Amino Transferase 34 U/L (5-37); Bilirubin Direct 0.7 mg/dL (0.0-0.5); Bilirubin Total 1.7 mg/dL (0.0-1.0); Total Protein 6.9 g/dL (6.5-8.0)
[2021-11-17 09:44] LABS: Alanine Aminotransferase 23 U/L (0-40); Albumin Level 3.3 g/dL (3.5-5.0); Alkaline Phosphatase 112 U/L (39-117); Anion Gap 7 (12-20); Aspartate Amino Transferase 34 U/L (5-37); Bilirubin Total 1.7 mg/dL (0.0-1.0); Blood Urea Nitrogen 8 mg/dL (9-16); Calcium 8.9 mg/dL (8.4-10.2); Carbon Dioxide 30 mmol/L (22-29); Chloride 104 mmol/L (96-108); Cholesterol 171 mg/dL; Estimated Glomerular Filt Rate > 60; Glucose Random 129 mg/dL (60-115); HDL Cholesterol 65 mg/dL; LDL Cholesterol Calculated 89 mg/dl; Potassium 4.3 mmol/L (3.3-5.1); Sodium 137 mmol/L (135-145); Triglycerides 89 mg/dL
[2021-11-17 09:52] LABS: Thyroid Stimulating Hormone 3.12 uIU/mL (0.32-4.0)
[2021-11-20 12:24] LABS: Alpha Fetoprotein 3.3 ng/mL (<6.1)
== END 2021-11-17 08:38 | disposition home or self-care (01) ==
LOC: HO.LAB 08:37
PROVIDERS: Absent Provider Internal Medicine; PCP Internal Medicine; Visit Provider Internal Medicine
DX: K70.30 Alcoholic cirrhosis of liver without ascites (principal); K72.10 Chronic hepatic failure without coma; I85.00 Esophageal varices without bleeding; I86.4 Gastric varices; D69.59 Other secondary thrombocytopenia; I81 Portal vein thrombosis; I85.10 Secondary esophageal varices without bleeding
CPT/HCPCS: 36415; 80053; 80061; 80076; 82105; 82140; 82248; 84443; 85025; 85610

== ENCOUNTER 2022-01-19 08:46 | Outpatient (REF) | payer MEDICARE, SELFPAY ==
[2022-01-19 09:06] LABS: MANUAL DIFF FLAG NO
[2022-01-19 09:28] LABS: Basophils Percent Auto 0.9 % (0-2); Eosinophils Absolute Auto 0.1 X10*3/uL (0.0-0.4); Eosinophils Percent Auto 5.1 % (0-4); Hematocrit 39.2 % (42.0-52.0); Hemoglobin 12.7 g/dl (14.0-18.0); Imm Gran Abs Auto 0.01 X10*3/uL (0.00-0.03); Imm Gran Pct Auto 0.4 % (0.0-0.4); Lymphocytes Absolute Auto 0.4 X10*3/uL (1.2-4.9); Lymphocytes Percent Auto 17.9 % (20-40); Mean Corpuscular HGB Conc 32.4 g/dl (31.0-36.0); Mean Corpuscular Hemoglobin 30.8 pg (27.0-33.0); Mean Corpuscular Volume 95.1 fL (80.0-98.0); Mean Platelet Volume 10.6 fL (9.4-12.4); Monocytes Absolute Auto 0.2 X10*3/uL (0.1-1.2); Monocytes Percent Auto 9.8 % (2-11); Neutrophils Absolute Auto 1.6 x10*3/uL (2.0-8.3); Neutrophils Percent Auto 65.9 % (45-73); Red Blood Count 4.12 X10*6/uL (4.60-5.80); Red Cell Distribution Width 14.6 % (11.0-16.0); SCAN SMEAR FLAG 1
[2022-01-19 09:29] LABS: Platelet Count 64 X10*3/uL (160-400); White Blood Count 2.4 X10*3/uL (4.8-10.8)
[2022-01-19 09:35] LABS: INTERNATIONAL NORM RATIO 1.4 (0.9-1.1); Prothrombin Time 15.7 SEC (10.0-13.1)
[2022-01-19 09:51] LABS: Alanine Aminotransferase 25 U/L (0-40); Albumin Level 3.5 g/dL (3.5-5.0); Alkaline Phosphatase 110 U/L (39-117); Anion Gap 11 (12-20); Aspartate Amino Transferase 45 U/L (5-37); Bilirubin Total 2.4 mg/dL (0.0-1.0); Blood Urea Nitrogen 7 mg/dL (9-16); Carbon Dioxide 30 mmol/L (22-29); Chloride 104 mmol/L (96-108); Estimated Glomerular Filt Rate > 60; Glucose Random 119 mg/dL (60-115); Potassium 3.8 mmol/L (3.3-5.1); Sodium 141 mmol/L (135-145); Total Protein 7.5 g/dL (6.5-8.0)
== END 2022-01-19 08:47 | disposition home or self-care (01) ==
LOC: HO.LAB 08:46
PROVIDERS: PCP Internal Medicine; Visit Provider Internal Medicine
DX: D69.59 Other secondary thrombocytopenia (principal); I81 Portal vein thrombosis; I85.10 Secondary esophageal varices without bleeding; K70.31 Alcoholic cirrhosis of liver with ascites
CPT/HCPCS: 36415; 80053; 85025; 85610

== ENCOUNTER 2023-07-26 10:24 | Emergency (ER) | payer OTHER, SELFPAY ==
[2023-07-26 10:33] VITALS: BP 154/94; PULSE 79; O2SAT 98
[2023-07-26 11:00] VITALS: BP 117/69; PULSE 71; RESP 16; TEMP 37.2; O2SAT 96; BMI 33.7
--- NOTE | 2023-07-26 11:19 | ED.GENADULT ---
HPI - General Adult General Chief complaint: General Medical Stated complaint: ,?BLOOD CLOT,NO PCP,?OUT OF [facility] PER EMS Time Seen by Provider: 07/26/23 10:56 Source: patient and EMS Mode of arrival: EMS Limitations: no limitations History of Present Illness HPI narrative: patient is homeless, has alcohol cirrhosis, recent GI bleed that needed esophageal varices banding at [facility] [place]. He also has a portal vein thrombosis. The plan according to [facility] is that he needs twice a day lovenox but has no PCP and that is why is was sent to the ED Related Data Home Medications Medication Instructions Recorded Confirmed ciprofloxacin HCl 500 mg tablet mg PO 06/26/20 08/28/20 flu vac qs 2019(4 yr up)CD(PF) 60 ml IM 06/26/20 08/28/20 mcg(15 mcgx4)/0.5 mL IM syringe hydroxyzine HCl 25 mg tablet mg PO 06/26/20 08/28/20 ibuprofen 600 mg tablet mg PO 06/26/20 08/28/20 naloxone 4 mg/actuation nasal spray intranasal 06/26/20 08/28/20 nicotine (polacrilex) 4 mg gum mg PO 06/26/20 08/28/20 nicotine 21 mg/24 hr daily 1 patch topical DAILY 06/26/20 08/28/20 transdermal patch pantoprazole 40 mg tablet,delayed mg PO 06/26/20 08/28/20 release cyanocobalamin (vitamin B-12) 1,000 mcg PO DAILY 08/28/20 08/28/20 1,000 mcg tablet ferrous sulfate 325 mg (65 mg 325 mg PO DAILY 08/28/20 08/28/20 iron) tablet furosemide 40 mg tablet mg PO 08/28/20 08/28/20 potassium chloride 20 mEq meq PO 08/28/20 08/28/20 tablet,extended release(part/cryst) rifaximin 550 mg tablet 550 mg PO BID 08/28/20 08/28/20 Previous Rx's Medication Instructions Recorded warfarin 2 mg tablet 2 mg PO DAILY #90 tabs 06/14/20 doxycycline monohydrate 100 mg 100 mg PO BID 7 days #14 caps 11/03/20 capsule tramadol 50 mg tablet 50 mg PO Q6H PRN pain #20 tabs 02/11/21 hydrocodone 5 mg-acetaminophen 325 1 tab PO BEDTIME PRN pain 10 days 02/24/21 mg tablet #10 tabs enoxaparin 150 mg/mL subcutaneous 135 mg (0.9 mL) subcut Q12H #54 mL 07/26/23 syringe (Lovenox) ferrous sulfate 325 mg (65 mg 325 mg PO DAILY #30 tabs 07/26/23 iron) tablet folic acid 1 mg tablet 1 mg PO DAILY #30 tabs 07/26/23 furosemide 40 mg tablet (Lasix) 40 mg PO DAILY #30 tabs 07/26/23 lactulose 10 gram/15 mL (15 mL) 15 ml PO TID #1,440 mL 07/26/23 oral solution pantoprazole 40 mg tablet,delayed 40 mg PO DAILY #30 tabs 07/26/23 release (Protonix) pyridoxine (vitamin B6) 50 mg 50 mg PO DAILY #30 caps 07/26/23 capsule spironolactone 100 mg tablet 100 mg PO QAM #30 tabs 07/26/23 thiamine HCl (vitamin B1) 100 mg 100 mg PO DAILY #30 tabs 07/26/23 tablet Allergies Allergy/AdvReac Type Severity Reaction Status Date / Time No Known Allergies Allergy Verified 07/26/23 11:00 [No Known Allergies*] Review of Systems Review of Systems: Yes all other systems are reviewed and are negative Neurologic: Denies Sensory deficit (Neuro) PMFSH Past Medical History Onset Date is defined in the Problem List Problems that require an onset date and time if occurred within 24 hrs of arrival to the ED Aortic Dissection and Rupture; Neurologic impairment; Cardiopulmonary Arrest; Endotracheal Intubation; Insertion or Replacement of Mechanical Circulatory Assist Device Medical History Cirrhosis HTN (hypertension) Social History Social History Alcohol intake: current Smoked in Last 30 Days: Yes Substance Use Type: Heroin Advance Directives: No Advance Directives Information Provided: Yes Current occupational status: retired Current occupation: rt handed Physical Exam ED Vital Signs: Vital Signs - 24 hr 07/26/23 11:00 Temperature 98.9 F Pulse Rate 71 Respiratory Rate 16 Blood Pressure 117/69 Pulse Oximetry 96 Oxygen Delivery Method Room Air BMI result Body Mass Index 33.7 Const Other: chronically ill obese male looking much older than stated age Orientation/consciousness: oriented to person and patient oriented x3 Limitations: no limitations HENMT Head: Yes normal to inspection Ears: external ears normal General nose exam: Normal external nose present Mouth: Normal oral and palatal mucosa present and oropharynx normal Throat: Yes posterior oropharynx normal Eyes General: appearance normal, both eyes and all related structures Neck Neck: Yes normal visual inspection Chest Chest palpation & inspection: normal inspection of the chest Resp Auscultation: clear to auscultation bilaterally Cardio Jugular venous distension: no JVD Rate: regular rate Rhythm: regular rhythm Heart sounds: S1 normal heart sound present and S2 normal heart sound present GI Inspection: Yes normal to inspection Palpation (GI): Soft to palpation, nontender and No hepatosplenomegaly present Auscultation: normal bowel sounds General: Yes no CVA tenderness Back/Spine/Pelvis Back: no CVA tenderness Skin Other: chronic edema changes to both legs Neuro General: oriented to person and patient oriented x3 Cranial nerves: Yes CN's II-XII intact bilaterally Motor exam (neuro): 5/5 motor strength present throughout Sensory Exam: No Sensory deficit (Neuro) Extrem General: Yes normal to inspection Psych Appearance: grossly normal Course Reevaluation(s) Reevaluation #1: HONEY will come [facility] to give him his lovenox shots Time: 15:10 Medications Administered Discontinued Medications Generic Name Dose Route Start Last Admin Trade Name Freq PRN Reason Stop Dose Admin Enoxaparin Sodium 135 mg 07/26/23 12:17 07/26/23 13:38 Enoxaparin Sodium 150 Mg/Ml Syringe 1.5 mg/kg (135 mg) 07/26/23 12:18 135 mg SUBCUT Administration ONCE ONE Medical Decision Making Differential Diagnosis Differential Diagnoses: The differential diagnosis associated with the presentation includes Consult Healthcare Provider case management Independent Historian Clinical information obtained from an independent historian. History obtained from or confirmed by: EMS External Record Review External record reviewed: Inpatient record (from [facility]) and Outside ED record Chronic Conditions Patient?s care impacted by: Other (cirrhhosis) Social Determinants Patient?s care significantly limited by Social Determinants of Health including: Inadequate housing, Low income and Alcoholism and drug addiction in family Discharge Plan Discharge Clinical Impression: Cirrhosis, Portal vein thrombosis Patient Disposition: Home, Self-Care Prescriptions: New ferrous sulfate 325 mg (65 mg iron) tablet 325 mg PO DAILY Qty: 30 0RF folic acid 1 mg tablet 1 mg PO DAILY Qty: 30 0RF furosemide [Lasix] 40 mg tablet 40 mg PO DAILY Qty: 30 0RF lactulose 10 gram/15 mL (15 mL) solution 15 ml PO TID Qty: 1440 0RF pantoprazole [Protonix] 40 mg tablet,delayed release (DR/EC) 40 mg PO DAILY Qty: 30 0RF pyridoxine (vitamin B6) 50 mg capsule 50 mg PO DAILY Qty: 30 0RF spironolactone 100 mg tablet 100 mg PO QAM Qty: 30 0RF thiamine HCl (vitamin B1) 100 mg tablet 100 mg PO DAILY Qty: 30 0RF enoxaparin [Lovenox] 150 mg/mL syringe 135 mg subcut Q12H Qty: 54 0RF No Action doxycycline monohydrate 100 mg capsule 100 mg PO BID 7 Days Qty: 14 0RF tramadol 50 mg tablet 50 mg PO Q6H PRN (Reason: pain) Qty: 20 0RF ferrous sulfate 325 mg (65 mg iron) tablet 325 mg PO DAILY Xifaxan 550 mg tablet 550 mg PO BID cyanocobalamin (vitamin B-12) 1,000 mcg tablet 1,000 mcg PO DAILY furosemide 40 mg tablet PO potassium chloride 20 mEq tablet,ER particles/crystals PO hydrocodone-acetaminophen 5-325 mg tablet 1 tab PO BEDTIME PRN (Reason: pain) 10 Days Qty: 10 0RF warfarin 2 mg tablet 2 mg PO DAILY Qty: 90 0RF Protocol: Dose Management Condition: Wednesday (Week One) Dose/Route: 4 mg Instruction: 2 x 2 mg tablets Condition: Wednesday Dose/Route: 2 mg Instruction: 1 x 2 mg tablet Condition: Wednesday Dose/Route: 4 mg Instruction: 2 x 2 mg tablets Condition: Wednesday Dose/Route: 4 mg Instruction: 2 x 2 mg tablets Condition: Dose/Route: 6 mg Instruction: 3 x 2 mg tablets Condition: Wednesday Dose/Route: 6 mg Instruction: 3 x 2 mg tablets Condition: Wednesday Dose/Route: 4 mg Instruction: 2 x 2 mg tablets Condition: Wednesday (Week Two) Dose/Route: 4 mg Instruction: 2 x 2 mg tablets Condition: Wednesday Dose/Route: 4 mg Instruction: 2 x 2 mg tablets Condition: Wednesday Dose/Route: 4 mg Instruction: 2 x 2 mg tablets Condition: Wednesday Dose/Route: 4 mg Instruction: 2 x 2 mg tablets Condition: Dose/Route: 4 mg Instruction: 2 x 2 mg tablets Condition: Wednesday Dose/Route: 4 mg Instruction: 2 x 2 mg tablets Condition: Wednesday Dose/Route: 4 mg Instruction: 2 x 2 mg tablets Protocol Text: Adjustment Start Date: 04/03/21 INR Value: 1.4 INR Date: 04/03/21 Recheck Date: 04/10/21 Additional Instructions: TAKE 6MG TODAY AND TOMM THEN 4MG DAILY NO GREENS FOR 2 DAYS EAT A RED FRUIT/ORANGE VEG FOR 2 DAYS pantoprazole 40 mg tablet,delayed release (DR/EC) PO Narcan 4 mg/actuation spray,non-aerosol intranasal ibuprofen 600 mg tablet PO hydroxyzine HCl 25 mg tablet PO nicotine 21 mg/24 hr patch 24 hour 1 patch topical DAILY nicotine (polacrilex) 4 mg gum PO Flucelvax Quad (PF) 60 mcg (15 mcg x 4)/0.5 mL syringe IM ciprofloxacin HCl 500 mg tablet PO Referrals: Physician,Unknown J [Primary Care Provider] - 1 week
--- NOTE | 2023-07-26 12:50 | MHC.CM.ED ---
Received case management consult from Dr Graves. Patient came to the ER d/t blood clot. Patient was d/c'd from [facility] on 07/17 with [facility]. T/W spoke with [facility] via telephone at [phone]. They originally accepted patient for methadone maintenance. However they have been seeing him twice a day due to medical non-compliance. Patient is active with [facility]. Patient's PCP's office fired patient due to non-compliance. [facility] is trying to find a PCP for patient. However they are unsure how long that will take. [facility] sent patient to ER so that lovenox could be given. [facility] is rq
--- NOTE | 2023-07-26 12:53 | MHC.CM.ED ---
Received case management consult from Dr Graves. Patient came to the ER d/t blood clot. Patient was d/c'd from [facility] on 07/17 with [facility]. T/W spoke with [facility] via telephone at [phone]. They originally accepted patient for methadone maintenance. However they have been seeing him twice a day due to medical non-compliance. Patient is active with [facility]. Patient's PCP's office fired patient due to non-compliance. [facility] is trying to find a PCP for patient. However they are unsure how long that will take. [facility] sent patient to ER so that lovenox could be given. [facility] is requesting maintenance medications be refilled until a PCP can be arranged to [facility] [address] in [place]. T/W explained ER MD might be agreeable to re-ording these meds for 1 month. [facility] agreeable. T/W spoke with Dr Graves. Dr Graves is willing to refill his medications but is unwilling to refill any narcotics. Continue to monitor for d/c needs.
[2023-07-26] MEDS: Enoxaparin Sodium 150 MG/ML SYRINGE 135 MG SUBCUT (13:38)
== END 2023-07-26 15:41 | disposition home or self-care (01) ==
PROVIDERS: Emergency Provider Emergency Medicine
DX: K74.60 Unspecified cirrhosis of liver (principal); I81 Portal vein thrombosis; I10 Essential (primary) hypertension; Z79.01 Long term (current) use of anticoagulants; Z79.899 Other long term (current) drug therapy
CPT/HCPCS: 96372; 99284; J1650

== ENCOUNTER 2023-08-08 08:14 | Inpatient (IN) | payer OTHER, SELFPAY ==
[2023-08-08] VITALS (26 sets, daily range): BP systolic 117–213; BP diastolic 70–131; PULSE 85–156; RESP 12–22; TEMP 32–37.7; O2SAT 95–100; BMI 28.3; BMI 28.8
--- NOTE | ~2023-08-08 | CT_ITS ---
EXAMINATION: CT HEAD WITHOUT CONTRAST CLINICAL INFORMATION: Fall COMPARISON: Previous head CT most recent February 2021 TECHNIQUE: Contiguous axial imaging was performed from the skull base to vertex without intravenous administration of contrast. This CT examination was performed using dose optimization techniques as appropriate, variously including the following: *Automated exposure control *Adjustment of mA and/or kV according to patient size (this includes techniques or standardized protocols for targeted exams where dose is matched to indication/reason for exam; i.e. extremities or head) *Use of iterative reconstruction technique DLP: 619 mGy-cm FINDINGS: There is no evidence of an extra-axial collection. There is no evidence of intra-axial or extra-axial hemorrhage. The ventricles and extra-axial CSF spaces are prominent suggestive of mild generalized atrophy. There is nonspecific periventricular white matter disease. No mass, mass effect or infarct. No skull fracture. Visualized paranasal sinuses, mastoid air cells and middle ears are clear. CT/CT head/brain wo IV con IMPRESSION: No acute findings. Mild generalized atrophy and nonspecific periventricular white matter disease.
--- NOTE | ~2023-08-08 | XR_ITS ---
EXAMINATION: PORTABLE CHEST 1 VIEW CLINICAL INFORMATION: POST INTUBATION. COMPARISON: Study earlier today. TECHNIQUE: Portable frontal view of the chest was obtained. FINDINGS: Patient not intubated. The endotracheal tube tip is still only 0.4 cm above the asya directed towards the right mainstem bronchus. It should be withdrawn slightly. Nasogastric tube tip and side-port below the diaphragm overlying the stomach. Embolization coils in the surgical drain seen overlying the upper abdomen. Lungs are mildly hypoexpanded with peribronchial cuffing but no superimposed focal infiltrate, effusion, overt edema, or pneumothorax. Cardiac silhouette within normal limits for size with vascular calcification in the mildly tortuous aorta. XR/XR chest 1V IMPRESSION: Endotracheal tube tip only 0.4 cm above the asya directed towards the right mainstem bronchus. It should be withdrawn slightly. Other tubes and lines as described. This critical result was discussed with at 08/08/2023 6:00 PM and it was ascertained that the content and urgency of the report was understood at the time of direct communication.
--- NOTE | ~2023-08-08 | CT_ITS ---
EXAMINATION: CT ABDOMEN AND PELVIS WITH CONTRAST CLINICAL INFORMATION: Abdominal bruising. Known portal vein thrombus. COMPARISON: Previous CT of the abdomen and pelvis most recent October 2019 TECHNIQUE: Multidetector volumetric images were obtained from the superior aspect of the liver through the pubic symphysis following administration 85 mL of Omnipaque 350 intravenous contrast. Sagittal and coronal reformatted images were obtained on the technologist's workstation. Oral contrast: Yes This CT examination was performed using dose optimization techniques as appropriate, variously including the following: *Automated exposure control *Adjustment of mA and/or kV according to patient size (this includes techniques or standardized protocols for targeted exams where dose is matched to indication/reason for exam; i.e. extremities or head) *Use of iterative reconstruction technique DLP: 1060 mGy-cm FINDINGS: LUNG BASES: The visualized lung bases are unremarkable. LIVER, GALLBLADDER, AND BILIARY TREE: The liver is cirrhotic appearing. Right hepatic vein to portal vein TIPSS shunt. 2 plastic bile duct stents. No biliary duct dilatation. No focal liver lesion. The gallbladder has been removed. PANCREAS: Unremarkable. SPLEEN: Enlarged spleen. 15 m in length.. Embolization coils. ADRENAL GLANDS: Unremarkable. KIDNEYS AND URETERS: The kidneys are normal in size, shape, and attenuation. I lateral renal cysts. No imaging follow-up recommended. Small nonobstructing stone in the lower pole BLADDER: Unremarkable. GASTROINTESTINAL TRACT: The small and large bowel are unremarkable. The appendix is unremarkable. There is mild thickening of the proximal stomach. No ascites or intraperitoneal or retroperitoneal hematoma is seen. ABDOMINAL WALL: There is fat stranding of the mid abdominal wall and small amount of. This may represent hematoma although appearance is similar to October 2019 CT. There is evidence of previous ventral hernia repair. LYMPH NODES: Normal. VASCULAR: There is a small amount of thrombus distal SMV near the portal splenic confluence in a to previous exam. The abdominal aorta is normal in caliber. There are embolization coils in the upper retroperitoneum and spleen. PELVIC VISCERA: Unremarkable. OSSEOUS STRUCTURES: L5-S1 spondylolysis and spondylolisthesis. Degenerative changes with mild spinal levels spondylosis. Degenerative disc disease at L5-S1. CT/CT abdomen pelvis w IV con IMPRESSION: Small amount of thrombus in the distal SMV near the portal splenic confluence similar to previous exam. Cirrhotic-appearing liver, TIPS, 2 plastic bile duct stents, embolization coils and splenomegaly. No ascites. No intraperitoneal or retroperitoneal hematoma seen. Small amount of fat stranding and small amount of fluid in the mid abdominal wall. This may represent hematoma although appearance is similar to October 2019 CT. Evidence of previous ventral hernia repair with mesh. Small left renal stone. Fleischner guidelines were followed.
--- NOTE | ~2023-08-08 | XR_ITS ---
EXAMINATION: XR CHEST CLINICAL INFORMATION: Fall COMPARISON: Previous chest x-ray December 2020 TECHNIQUE: Frontal view of the chest was obtained. FINDINGS: No significant abnormality is noted involving the heart, lungs, mediastinum, bony thorax or soft tissues. Degenerative changes of the spine. No fracture seen. coils under the left hemidiaphragm. XR/XR chest 1V IMPRESSION: No evidence for acute disease in the chest.
--- NOTE | 2023-08-08 08:24 | ECG_ITS ---
Test Reason : LIVER CIRRHOSIS Blood Pressure : / mmHG Vent. Rate : 086 BPM Atrial Rate : 086 BPM P-R Int : 154 ms QRS Dur : 112 ms QT Int : 394 ms P-R-T Axes : 049 -46 017 degrees QTc Int : 471 ms Normal sinus rhythm Left anterior fascicular block Abnormal ECG When compared with ECG of 05-DEC-2020 18:54, Incomplete right bundle branch block is no longer Present Referred By: Laura Angulo Electronically Signed By:ELODIA BROWN
--- NOTE | 2023-08-08 08:32 | ED_ITS ---
HPI - General Adult General Chief complaint: Altered Mental Status Stated complaint: UNWITNESSED FALL Time Seen by Provider: 08/08/23 08:25 Source: EMS Mode of arrival: EMS Limitations: altered mental status History of Present Illness HPI narrative: Patient is a 68-year-old male who presents to the emergency department via EMS. VNA presented and found him lethargic, sitting on the floor next to the bed. For VNA at baseline he is alert and oriented ambulatory. VNA services are in place twice daily for Lovenox administration secondary to portal vein thrombosis. Unable to obtain history from patient, he does follow minimal commands such as opening his eyes opening his mouth in answers hello when his name is called Related Data Home Medications Medication Instructions Recorded Confirmed ferrous sulfate 325 mg (65 mg 325 mg PO DAILY 08/28/20 08/08/23 iron) tablet furosemide 40 mg tablet 40 mg PO DAILY 08/28/20 08/08/23 rifaximin 550 mg tablet 550 mg PO BID 08/28/20 08/08/23 docusate sodium 100 mg capsule 100 mg PO BID PRN Constipation 08/08/23 08/08/23 hydroxyzine HCl 25 mg tablet 25 mg PO QID PRN Anxiety 08/08/23 08/08/23 methadone 10 mg/mL oral 50 mg PO DAILY 08/08/23 08/08/23 concentrate (Methadone Intensol) pantoprazole 40 mg tablet,delayed 40 mg PO BID 08/08/23 08/08/23 release (Protonix) Previous Rx's Medication Instructions Recorded enoxaparin 150 mg/mL subcutaneous 135 mg (0.9 mL) subcut Q12H #54 mL 07/26/23 syringe (Lovenox) folic acid 1 mg tablet 1 mg PO DAILY #30 tabs 07/26/23 lactulose 10 gram/15 mL (15 mL) 15 ml PO TID #1,440 mL 07/26/23 oral solution pyridoxine (vitamin B6) 50 mg 50 mg PO DAILY #30 caps 07/26/23 capsule spironolactone 100 mg tablet 100 mg PO QAM #30 tabs 07/26/23 thiamine HCl (vitamin B1) 100 mg 100 mg PO DAILY #30 tabs 07/26/23 tablet Allergies Allergy/AdvReac Type Severity Reaction Status Date / Time No Known Allergies Allergy Verified 07/26/23 11:00 [No Known Allergies*] Review of Systems 2 Review of Systems: Yes Unobtainable due to mental status [facility] Past Medical History Source: old records reviewed Medical History (Updated 08/08/23 @ 16:38 by Giovanna Castillo CNP) Polysubstance abuse Splenomegaly Pancytopenia Portal vein thrombosis Cirrhosis HTN (hypertension) Social History Social History Alcohol intake: current Substance Use Type: Heroin Advance Directives: No Advance Directives Information Provided: No Current occupational status: retired Current occupation: rt handed Physical Exam ED Vital Signs: Vital Signs - 24 hr 08/08/23 08:26 08/08/23 10:15 08/08/23 11:01 Temperature 98.9 F 98.7 F Pulse Rate 91 101 H 92 Respiratory Rate 18 12 13 Blood Pressure 137/90 H 134/87 156/91 H Pulse Oximetry 95 95 100 Oxygen Delivery Method Room Air Room Air Nasal Cannula Oxygen Flow Rate 2 08/08/23 12:05 08/08/23 13:37 Temperature 98.3 F 98.4 F Pulse Rate 115 H 106 H Respiratory Rate 12 17 Blood Pressure 124/88 135/82 Pulse Oximetry 99 100 Oxygen Delivery Method Room Air Room Air Oxygen Flow Rate BMI result Body Mass Index 28.3 Appearance: Lethargic, disoriented Eyes: Pupils equal, round and reactive to light, scleral icterus? ENT: Pharynx normal.??Dry mucous membranes, white film to tongue and corners of mouth Neck: Normal inspection.? Neck supple.?? CVS: Heart sounds normal. Normal heart rate and rhythm.? Pulses normal.?? Respiratory: No respiratory distress.? Lung sounds clear to auscultation bilaterally?? Abdomen: Soft, rounded, seemingly non-tender. Normoactive bowel sounds. No pulsatile mass.?? Skin: Skin warm and dry.? Jaundice. Chronic dermatitis to the bilateral lower extremities. 2+ DP/PT pulse bilaterally. Extremities: No lower extremity edema.? No calf ttp? Neuro: Moves all extremities spontaneously. Course Reevaluation(s) Reevaluation #1: Pancytopenia consistent with baseline, BUN 31 creatinine 0.96, suspect a degree of dehydration, VBG reassuring, elevated transaminases consistent with prior, ammonia 63, given lethargy patient received lactulose rectally. High sensitive troponin within normal range, EKG revealing normal sinus rhythm ventricular rate 86, QTC 471, no ST elevation, no ST depression. COVID-19/influenza testing negative. CXR is without acute cardiopulmonary disease. Head CT is without acute intracranial abnormality. Nursing staff advised me that on room air his O2 saturation had decreased to mid 80s while asleep, upon verbal stimulation, O2 saturation does increase to 90s on room air. Placed on 2 L via nasal cannula, with maintaining saturation 98%. CT of the abdomen and pelvis revealing small amount of thrombus in the distal SMV near the portal splenic confluence similar to prior, cirrhosis, no ascites, otherwise no acute etiology. Will speak with hospitalist, plan to admit for hepatic encephalopathy. Time: 11:19 Reevaluation #2: Advised by nursing staff that at this time patient is Actively vomiting bright red blood with clots, mildly tachycardic, remains alert. Hospitalist made aware. Time: 15:31 Reevaluation #3: Central line was placed a right femoral, good blood return. GI was consulted, Dr. Valadez, and agrees with plan of care for stabilization, resuscitation as necessary, ppi, octreotide, Rocephin until endoscopy can occur, and recommends intubation for airway protection. At this time he is maintaining his airway, speaking clear full sentences, prior to this episode his mental status had been improving significantly since his initial admission, became tachycardic after vomiting, no hypotension. He remains in the ED at this time, spoke with Dr. Angulo, who does not feel as though her requires emergent intubation, triple- lumen central line to the right femoral was placed, see procedural note for further details. These recommendations from GI were relayed to hospitalist service, Willem Laguerre and Dr. Presley, vacation planner being consulted. 17:00 - Per GI, given history of TIPS, should not have varices, concern for bleeding into the stomach and high-risk for vomiting again, recommendation for airway stabilization at this time. Sanitation Lead unavailable at this time, I spoke with my attending, Dr. Downs, who will intubate. Medications Administered Generic Name Dose Route Start Last Admin Trade Name Freq PRN Reason Stop Dose Admin Sodium Chloride 1,000 mls @ 100 mls/hr 08/08/23 13:45 08/08/23 14:24 Ns IVCONT 100 mls/hr .Q10H LEONARDO Administration Octreotide Acetate 500 mcg/ 501 mls @ 50.1 mls/hr 08/08/23 15:30 08/08/23 16:18 Sodium Chloride IVCONT 50 mcg/hr .Q10H LEONARDO 50.1 mls/hr Administration 50 MCG/HR Ceftriaxone Sodium 1 gm/ 50 mls @ 100 mls/hr 08/08/23 15:30 08/08/23 16:18 Sodium Chloride IV 100 mls/hr Q24H LEONARDO Administration Discontinued Medications Generic Name Dose Route Start Last Admin Trade Name Freq PRN Reason Stop Dose Admin Diazepam 5 mg 08/08/23 16:12 08/08/23 16:27 Diazepam 10 Mg/2 Ml Cartridge IVPUSH 08/08/23 16:13 5 mg STAT STA Administration Sodium Chloride 1,000 mls @ 999 mls/hr 08/08/23 10:30 08/08/23 12:05 Ns IV 08/08/23 11:30 Infused .Q1H1M LEONARDO Infusion Iohexol 85 ml 08/08/23 10:31 08/08/23 10:32 Iohexol 350 Mg/Ml 100 Ml Infus..Btl IV 08/08/23 10:32 85 ml ONCE ONE Administration Lactulose 200 gm 08/08/23 10:17 08/08/23 11:06 Lactulose 320 Gm/480 Ml Solution OR 08/08/23 10:18 200 gm ONCE ONE Administration Octreotide Acetate 50 mcg 08/08/23 15:24 08/08/23 15:38 Octreotide Acetate 100 Mcg/Ml Ampul IVPUSH 08/08/23 15:25 50 mcg ONCE ONE Administration Pantoprazole Sodium 80 mg 08/08/23 15:27 08/08/23 15:37 Pantoprazole Sodium 40 Mg/10 Ml Vial IVPUSH 08/08/23 15:28 80 mg ONCE ONE Administration Procedures Central Line Placement Right Femoral: Time Out Performed: Yes Patient Placed on Monitor/Pulse Ox: Yes Prep: mask, gown and gloves Central Line Prep: Chlorhexidine scrub and sterile drapes applied Local Anesthetic: lidocaine 1% Amount of anesthesia used (mL): 2 Ultrasound Used for Placement: Yes Central Line Lumen Inserted: triple Post Procedure: sutured in place, good blood return, all ports aspirated, flushed, capped and sterile dressing applied Patient Tolerated Procedure: well Complications: none EJ/Peripheral Line Arm L: Time Out Performed: Yes Skin Cleansed in Sterile Fashion: Yes Size (gauge): 18 IV Secured and Dressing Applied: Yes Patient Tolerated Procedure: well Additional Comments: US guided Intubation Intubation Type:: Endotracheal Tube Insertion Intubation Date:: 08/08/23 Intubation Time:: 17:41 Time out performed: Yes sedative: Etomidate Mg Given: 20 paralytic: Rocuronium Mg Given: 50 Laryngoscope: fiber optic video scope ET Tube Size: 7.5 ET Tube Uncuffed: Yes Tube Secured Depth (cm): 24 Tube Secured Location: lips Tube Placement Confirmation: visualized tube passing through cords and equal breath sounds bilaterally Patient Tolerated Procedure: no complications Intubation Complications: none Medical Decision Making Medical Decision Making MDM Narrative: Patient is a 68-year-old male with past medical history of Hypertension, cirrhosis, portal vein thrombosis presenting to emergency department via EMS after being found on the floor next to his bed by VNA lethargic. Unable to obtain history from patient at this time due to lethargy. Will obtain CBC to evaluate for leukocytosis/ anemia, CMP and lipase to evaluate for abnormal electrolytes /abnormal renal function/ abnormal hepatic/biliary function, EKG and troponin to evaluate for ischemia/ACS. Chest x-ray to evaluate for consolidation/ infiltrate/ mass/ pulmonary congestion, CT AP, and Urinalysis. Differential Diagnosis Differential Diagnoses: The differential diagnosis associated with the presentation includes (ICH, SDH, cerebral infarct, hepatic encephalopathy, urinary tract infection,) Admission/Observation Consideration of admission/observation: Escalation of care including admission/observation considered (Admission, see course narrative) Lab Data MDM Lab Attestation statement: I reviewed the patient's lab results. (See course narrative) 08/08/23 16:23 08/08/23 09:33 Labs: Lab Results 08/08/23 08/08/23 08/08/23 Range/Units 08:36 09:33 09:41 WBC 4.6 L (4.8-10.8) X10*3/uL RBC 4.32 L (4.60-5.80) X10*6/uL Hgb 13.2 L (14.0-18.0) g/dl Hct 38.9 L (42.0-52.0) % MCV 90.0 (80.0-98.0) fL MCH 30.6 (27.0-33.0) pg MCHC 33.9 (31.0-36.0) g/dl RDW 13.5 (11.0-16.0) % Plt Count 80 L (160-400) X10*3/uL MPV 10.6 (9.4-12.4) fL Immature Gran % (Auto) 0.2 (0.0-0.4) % Neut % (Auto) 78.0 H (45-73) % Lymph % (Auto) 12.6 L (20-40) % Bethel % (Auto) 6.9 (2-11) % Eos % (Auto) 1.7 (0-4) % Baso % (Auto) 0.6 (0-2) % Lymph # (Auto) 0.6 L (1.2-4.9) X10*3/uL Bethel # (Auto) 0.3 (0.1-1.2) X10*3/uL Eos # (Auto) 0.1 (0.0-0.4) X10*3/uL Baso # (Auto) 0.0 (0.0-0.2) X10*3/uL Abs Immat Gran (auto) 0.01 (0.00-0.03) X10*3/uL Absolute Neuts (auto) 3.6 (2.0-8.3) x10*3/uL Absolute Nucleated RBC 0.000 (0.0-0.012) X10*3/uL Nucleated RBC % (auto) 0.0 (0.0-0.2) /100WBC PT 16.3 H (11.1-13.3) SEC INR 1.3 H (0.9-1.1) APTT 37.9 H (26.0-36.8) SEC VBG pH 7.44 H (7.32-7.43) VBG pCO2 45 mmHg VBG pO2 36 mmHg VBG HCO3 31 H (22-26) mmol/L VBG O2 Saturation 50.0 % VBG Base Excess 6.2 mmol/L Sodium 142 (135-145) mmol/L Potassium 4.3 (3.3-5.1) mmol/L Chloride 104 (96-108) mmol/L Carbon Dioxide 29 (22-29) mmol/L Anion Gap 13 (12-20) BUN 31 H (9-16) mg/dL Creatinine 0.96 (0.5-1.4) mg/dL Estim Creat Clear Calc 81.5 Estimated GFR > 60 Random Glucose 104 (60-115) mg/dL Calcium 9.7 D (8.4-10.2) mg/dL Total Bilirubin 1.5 H (0.0-1.0) mg/dL AST 63 H (5-37) U/L ALT 41 H (0-40) U/L Alkaline Phosphatase 73 (39-117) U/L Ammonia 63 H (13-55) umol/L Total Creatine Kinase 452 H (38-174) U/L Troponin I High Sens 9.3 (<3.5-35.0) ng/L Total Protein 7.8 (6.5-8.0) g/dL Albumin 3.4 L (3.5-5.0) g/dL Urine Color Urine Appearance Urine pH (5.0-9.0) Ur Specific Coleman (1.005-1.025) Urine Protein (Neg-Trace) mg/dL Urine Glucose (UA) (Negative) mg/dL Urine Ketones (Negative) mg/dL Urine Blood (Negative) Urine Nitrite (Negative) Ur Leukocyte Esterase (Negative) Urine Opiates Screen (Not Detect) Urine Fentanyl Screen (Not Detect) Ur Barbiturates Screen (Not Detect) Ur Phencyclidine Scrn (Not Detect) Ur Amphetamines Screen (Not Detect) U Benzodiazepines Scrn (Not Detect) Urine Cocaine Screen (Not Detect) U Marijuana (THC) Screen (Not Detect) COVID-19 (TESS) (Negative) COVID-19 Clin Com Influenza Type A (DUANE) (Negative) Influenza Type B (DUANE) (Negative) Influenza A & B Note 08/08/23 08/08/23 Range/Units 10:41 12:24 WBC (4.8-10.8) X10*3/uL RBC (4.60-5.80) X10*6/uL Hgb (14.0-18.0) g/dl Hct (42.0-52.0) % MCV (80.0-98.0) fL MCH (27.0-33.0) pg MCHC (31.0-36.0) g/dl RDW (11.0-16.0) % Plt Count (160-400) X10*3/uL MPV (9.4-12.4) fL Immature Gran % (Auto) (0.0-0.4) % Neut % (Auto) (45-73) % Lymph % (Auto) (20-40) % Bethel % (Auto) (2-11) % Eos % (Auto) (0-4) % Baso % (Auto) (0-2) % Lymph # (Auto) (1.2-4.9) X10*3/uL Bethel # (Auto) (0.1-1.2) X10*3/uL Eos # (Auto) (0.0-0.4) X10*3/uL Baso # (Auto) (0.0-0.2) X10*3/uL Abs Immat Gran (auto) (0.00-0.03) X10*3/uL Absolute Neuts (auto) (2.0-8.3) x10*3/uL Absolute Nucleated RBC (0.0-0.012) X10*3/uL Nucleated RBC % (auto) (0.0-0.2) /100WBC PT (11.1-13.3) SEC INR (0.9-1.1) APTT (26.0-36.8) SEC VBG pH (7.32-7.43) VBG pCO2 mmHg VBG pO2 mmHg VBG HCO3 (22-26) mmol/L VBG O2 Saturation % VBG Base Excess mmol/L Sodium (135-145) mmol/L Potassium (3.3-5.1) mmol/L Chloride (96-108) mmol/L Carbon Dioxide (22-29) mmol/L Anion Gap (12-20) BUN (9-16) mg/dL Creatinine (0.5-1.4) mg/dL Estim Creat Clear Calc Estimated GFR Random Glucose (60-115) mg/dL Calcium (8.4-10.2) mg/dL Total Bilirubin (0.0-1.0) mg/dL AST (5-37) U/L ALT (0-40) U/L Alkaline Phosphatase (39-117) U/L Ammonia (13-55) umol/L Total Creatine Kinase (38-174) U/L Troponin I High Sens (<3.5-35.0) ng/L Total Protein (6.5-8.0) g/dL Albumin (3.5-5.0) g/dL Urine Color Yellow Urine Appearance Clear Urine pH 7.5 (5.0-9.0) Ur Specific Coleman >= 1.030 H (1.005-1.025) Urine Protein Negative (Neg-Trace) mg/dL Urine Glucose (UA) Negative (Negative) mg/dL Urine Ketones Negative (Negative) mg/dL Urine Blood Negative (Negative) Urine Nitrite Negative (Negative) Ur Leukocyte Esterase Negative (Negative) Urine Opiates Screen POSITIVE H (Not Detect) Urine Fentanyl Screen POSITIVE H (Not Detect) Ur Barbiturates Screen Not Detected (Not Detect) Ur Phencyclidine Scrn Not Detected (Not Detect) Ur Amphetamines Screen Not Detected (Not Detect) U Benzodiazepines Scrn Not Detected (Not Detect) Urine Cocaine Screen Not Detected (Not Detect) U Marijuana (THC) Screen Not Detected (Not Detect) COVID-19 (TESS) Negative (Negative) COVID-19 Clin Com See Note Influenza Type A (DUANE) Negative (Negative) Influenza Type B (DUANE) Negative (Negative) Influenza A & B Note See Note Independent Interpretation I performed an independent interpretation of an: Plain X-Ray (I personally interpreted XR imaging and agree with radiologist impression) and CT Scan Radiology Impression Discussion of test interpretation with radiology: I have reviewed the radiologist's reading. Radiologist Impression: XR/XR chest 1V IMPRESSION: No evidence for acute disease in the chest. CT/CT head/brain wo IV con IMPRESSION: No acute findings. Mild generalized atrophy and nonspecific periventricular white matter disease. CT/CT abdomen pelvis w IV con IMPRESSION: Small amount of thrombus in the distal SMV near the portal splenic confluence similar to previous exam. Cirrhotic-appearing liver, TIPS, 2 plastic bile duct stents, embolization coils and splenomegaly. No ascites. No intraperitoneal or retroperitoneal hematoma seen. Small amount of fat stranding and small amount of fluid in the mid abdominal wall. This may represent hematoma although appearance is similar to October 2019 CT. Evidence of previous ventral hernia repair with mesh. Small left renal stone. Independent Historian Clinical information obtained from an independent historian. History obtained from or confirmed by: EMS External Record Review External record reviewed: Outpatient record Critical Care Time Critical Care Time Critical Care Time: Yes Total Critical Care Time: 120 Attestation: I personally attest to this critical care time spent taking care of the patient exclusive of all other billable procedures was approximately 120 minutes including initial evaluation of patient, ordering tests, x-ray interpretation, EKG interpretation, medical consultation, documentation, central line placemnet, re-evaluation. Discharge Plan Discharge Clinical Impression: Acute hepatic encephalopathy, Portal vein thrombosis Patient Disposition: Admitted As Inpatient
[2023-08-08 09:44] LABS: MANUAL DIFF FLAG NO
[2023-08-08 09:51] LABS: VBG Base Excess 6.2 mmol/L; VBG HCO3 31 mmol/L (22-26); VBG pCO2 45 mmHg; VBG pH 7.44 (7.32-7.43); VBG pO2 36 mmHg
[2023-08-08 09:51] LABS: Venous Blood Gas Refer to POC result
[2023-08-08 09:53] LABS: Basophils Percent Auto 0.6 % (0-2); Eosinophils Absolute Auto 0.1 X10*3/uL (0.0-0.4); Eosinophils Percent Auto 1.7 % (0-4); Hematocrit 38.9 % (42.0-52.0); Hemoglobin 13.2 g/dl (14.0-18.0); Imm Gran Abs Auto 0.01 X10*3/uL (0.00-0.03); Imm Gran Pct Auto 0.2 % (0.0-0.4); Lymphocytes Absolute Auto 0.6 X10*3/uL (1.2-4.9); Lymphocytes Percent Auto 12.6 % (20-40); Mean Corpuscular HGB Conc 33.9 g/dl (31.0-36.0); Mean Corpuscular Hemoglobin 30.6 pg (27.0-33.0); Mean Platelet Volume 10.6 fL (9.4-12.4); Monocytes Absolute Auto 0.3 X10*3/uL (0.1-1.2); Monocytes Percent Auto 6.9 % (2-11); Neutrophils Absolute Auto 3.6 x10*3/uL (2.0-8.3); Platelet Count 80 X10*3/uL (160-400); Red Blood Count 4.32 X10*6/uL (4.60-5.80); Red Cell Distribution Width 13.5 % (11.0-16.0); White Blood Count 4.6 X10*3/uL (4.8-10.8)
[2023-08-08 09:54] LABS: Ammonia 63 umol/L (13-55)
[2023-08-08 09:58] LABS: INTERNATIONAL NORM RATIO 1.3 (0.9-1.1); Prothrombin Time 16.3 SEC (11.1-13.3)
[2023-08-08 10:00] LABS: Partial Thromboplastin Time 37.9 SEC (26.0-36.8)
[2023-08-08 10:02] LABS: Alanine Aminotransferase 41 U/L (0-40); Albumin Level 3.4 g/dL (3.5-5.0); Alkaline Phosphatase 73 U/L (39-117); Anion Gap 13 (12-20); Aspartate Amino Transferase 63 U/L (5-37); Bilirubin Total 1.5 mg/dL (0.0-1.0); Blood Urea Nitrogen 31 mg/dL (9-16); Calcium 9.7 mg/dL (8.4-10.2); Carbon Dioxide 29 mmol/L (22-29); Chloride 104 mmol/L (96-108); Creatinine Clr Calc Pharmacy 81.5; Estimated Glomerular Filt Rate > 60; Glucose Random 104 mg/dL (60-115); Potassium 4.3 mmol/L (3.3-5.1); Sodium 142 mmol/L (135-145); Total Protein 7.8 g/dL (6.5-8.0)
[2023-08-08 10:09] LABS: Troponin-I High Sensitivity 9.3 ng/L (<3.5-35.0)
[2023-08-08] MEDS: iohexoL 350 MG/ML 100 ML INFUS..BTL 85 ML IV (10:32)
[2023-08-08] MEDS: 0.9 % Sodium Chloride 1,000 ML 999 ML IV (10:37)
--- NOTE | 2023-08-08 11:00 | PC.NURSE ---
patient had episode pf desaturation to 78% while asleep sitting up, provider notified placed on 2l nc, now satting 98%
[2023-08-08 11:05] LABS: COVID-19 Test Negative (Negative); IDNOW Serial# 08D9AD1C
[2023-08-08] MEDS: Lactulose 320 GM/480 ML SOLUTION 200 GM PR (11:06)
[2023-08-08 11:09] LABS: IDNOW Serial# 152EDE1D; Influenza A Negative (Negative); Influenza B2 Negative (Negative)
--- NOTE | 2023-08-08 11:22 | PC.NURSE ---
gave patient lactulose enema, patient tolerated well, patient cleaned up, given new pads. sitting up in bed.
--- NOTE | 2023-08-08 12:10 | PC.NURSE ---
patient appears to be more alert since arrival to the ED, patient states he doesn't know what happened this morning prior to arrival to ED. patient respirations equal and unlabored. patient respirations equal and unlabored , VSS. skin dry and intact.
--- NOTE | 2023-08-08 12:28 | PC.NURSE ---
patient voided 500 ml of urine into urinal. patient appears to have fallen back asleep, respirations equal and unlabored, on tele monitor
[2023-08-08 12:39] LABS: Appearance Urine Clear; Color Urine Yellow; Glucose Urine UA Negative (Negative); Leukocyte Esterase Urine Negative (Negative); Nitrite Urine Negative (Negative); PH 7.5 (5.0-9.0); Specific Gravity - Urine >= 1.030 (1.005-1.025); Urine Blood Negative (Negative); Urine Ketones Negative (Negative); Urine Protein Negative (Neg-Trace)
[2023-08-08 12:45] LABS: Amphetamine Screen Urine Not Detected (Not Detect); Barbiturates, Urine Not Detected (Not Detect); Benzodiazepines Screen Urine Not Detected (Not Detect); Cannabinoid Screen Urine Not Detected (Not Detect); Cocaine Screen Urine Not Detected (Not Detect); Fentanyl, urine POSITIVE (Not Detect); Opiate Screen Urine POSITIVE (Not Detect); Phencyclidine Screen Urine Not Detected (Not Detect)
--- NOTE | 2023-08-08 13:47 | PM.IMHP ---
History of Present Illness Date of Service: 08/08/23 Attending physician on admission: Zhou Presley Chief Complaint: ams 68-year-old male with history of hypertension, hepatic cirrhosis complicated by pencytopenia and portal vein thrombosis anticoagulated with Lovenox, polysubstance use, GERD presents to the ED at the recommendation of VNA due to altered mental status. Per VNA, the patient was found lethargic, sitting on the floor next to the bed which is different than his baseline. At baseline he is alert and oriented, ambulatory. The patient is unable to provide history but does open his eyes and state his name when asked but otherwise is disoriented. Denies any complaints. Does endorse inhaled heroin use last night. On arrival, patient has been intermittently tachycardic to 115, vitals otherwise stable. He did briefly desaturate while sleeping into the 80s and was placed on 2 L supplemental O2 but is maintaining oximetry 96-100% on room air during exam. Hematology studies show increase from baseline WBC to 4.6, likely hemoconcentrated. Stable normocytic anemia and thombocytopenia. Renal function baseline, electrolyte levels normal. Liver function tests baseline, ammonia level 63. Total CK 452. Urinalysis unremarkable. Urine tox screen positive for opiates and fentanyl. Negative for covid, influenza. Head CT negative for any acute intracranial abnormality but shows generalized atrophy and nonspecific white matter disease. Chest x-ray negative for any acute cardiopulmonary abnormality. CT abdomen/pelvis shows small amount of thrombus in the distal SMV near the portal splenic confluence similar to prior exams as well as cirrhotic appearing liver, tips, to plastic bile duct stents, embolization coils and splenomegaly but no ascites. In the ED, given 200g lactulose GA, 1L NS. Review of Systems Review of Systems: Yes Unobtainable due to mental status [facility] Medical History (Updated 08/08/23 @ 16:38 by Giovanna Castillo CNP) Polysubstance abuse Splenomegaly Pancytopenia Portal vein thrombosis Cirrhosis HTN (hypertension) Social History Alcohol intake: current Substance Use Type: Heroin Advance Directives: No Advance Directives Information Provided: No Current occupational status: retired Current occupation: rt handed Meds Allergies Allergy/AdvReac Type Severity Reaction Status Date / Time No Known Allergies Allergy Verified 07/26/23 11:00 [No Known Allergies*] Home Medications Medication Instructions Recorded Confirmed Last Taken Type ferrous sulfate 325 mg (65 mg 325 mg PO DAILY 08/28/20 08/08/23 Unknown History iron) tablet furosemide 40 mg tablet 40 mg PO DAILY 08/28/20 08/08/23 Unknown History rifaximin 550 mg tablet 550 mg PO BID 08/28/20 08/08/23 Unknown History docusate sodium 100 mg capsule 100 mg PO BID PRN Constipation 08/08/23 08/08/23 Unknown History hydroxyzine HCl 25 mg tablet 25 mg PO QID PRN Anxiety 08/08/23 08/08/23 Unknown History methadone 10 mg/mL oral 50 mg PO DAILY 08/08/23 08/08/23 08/07/23 History concentrate (Methadone Intensol) pantoprazole 40 mg tablet,delayed 40 mg PO BID 08/08/23 08/08/23 Unknown History release (Protonix) Physical Exam Vital Signs and Narrative: Vital Signs: Last Vital Signs Temp 98.4 F 08/08/23 13:37 Pulse 106 H 08/08/23 13:37 Resp 17 08/08/23 13:37 BP 135/82 08/08/23 13:37 Pulse Ox 100 08/08/23 13:37 O2 Del Method Room Air 08/08/23 13:37 O2 Flow Rate 2 08/08/23 11:01 BMI result Body Mass Index 28.3 Constitutional - somnolent but arousable, No apparent distress Eyes - PERRLA, EOMI Cardiovascular - S1S2, RRR Respiratory - Normal lung expansion, Normal respiratory effort, No respiratory distress, CTA bilaterally Gastrointestinal - NT / ND; +BS; No rebound or guarding Extremities - no calf tenderness bilaterally, no swelling Skin - Warm. Dry, contracted BLE with thickened hyperpigmented skin Neurological - somnolent but arousable, oriented to self only, PERLLA, EOMI Results Labs 08/08/23 16:23 08/08/23 09:33 Labs: Laboratory Results - last 24 hr 08/08/23 08/08/23 08/08/23 08:36 09:33 09:41 MCV 90.0 MCH 30.6 MCHC 33.9 RDW 13.5 Plt Count 80 L MPV 10.6 Immature Gran % (Auto) 0.2 Neut % (Auto) 78.0 H Lymph % (Auto) 12.6 L [place] % (Auto) 6.9 Eos % (Auto) 1.7 Baso % (Auto) 0.6 Lymph # (Auto) 0.6 L [place] # (Auto) 0.3 Eos # (Auto) 0.1 Baso # (Auto) 0.0 Abs Immat Gran (auto) 0.01 Absolute Neuts (auto) 3.6 Absolute Nucleated RBC 0.000 Nucleated RBC % (auto) 0.0 PT 16.3 H INR 1.3 H APTT 37.9 H VBG pH 7.44 H VBG pCO2 45 VBG pO2 36 VBG HCO3 31 H VBG O2 Saturation 50.0 VBG Base Excess 6.2 Anion Gap 13 Estim Creat Clear Calc 81.5 Estimated GFR > 60 Random Glucose 104 Calcium 9.7 D Total Bilirubin 1.5 H AST 63 H ALT 41 H Alkaline Phosphatase 73 Ammonia 63 H Total Creatine Kinase 452 H Total Protein 7.8 Albumin 3.4 L Urine Color Urine Appearance Urine pH Ur Specific [place] Urine Protein Urine Glucose (UA) Urine Ketones Urine Blood Urine Nitrite Ur Leukocyte Esterase Urine Opiates Screen Urine Fentanyl Screen Ur Barbiturates Screen Ur Phencyclidine Scrn Ur Amphetamines Screen U Benzodiazepines Scrn Urine Cocaine Screen U Marijuana (THC) Screen COVID-19 (TESS) COVID-19 Clin Com Influenza Type A (DUANE) Influenza Type B (DUANE) Influenza A & B Note 08/08/23 08/08/23 10:41 12:24 MCV MCH MCHC RDW Plt Count MPV Immature Gran % (Auto) Neut % (Auto) Lymph % (Auto) [place] % (Auto) Eos % (Auto) Baso % (Auto) Lymph # (Auto) [place] # (Auto) Eos # (Auto) Baso # (Auto) Abs Immat Gran (auto) Absolute Neuts (auto) Absolute Nucleated RBC Nucleated RBC % (auto) PT INR APTT VBG pH VBG pCO2 VBG pO2 VBG HCO3 VBG O2 Saturation VBG Base Excess Anion Gap Estim Creat Clear Calc Estimated GFR Random Glucose Calcium Total Bilirubin AST ALT Alkaline Phosphatase Ammonia Total Creatine Kinase Total Protein Albumin Urine Color Yellow Urine Appearance Clear Urine pH 7.5 Ur Specific [place] >= 1.030 H Urine Protein Negative Urine Glucose (UA) Negative Urine Ketones Negative Urine Blood Negative Urine Nitrite Negative Ur Leukocyte Esterase Negative Urine Opiates Screen POSITIVE H Urine Fentanyl Screen POSITIVE H Ur Barbiturates Screen Not Detected Ur Phencyclidine Scrn Not Detected Ur Amphetamines Screen Not Detected U Benzodiazepines Scrn Not Detected Urine Cocaine Screen Not Detected U Marijuana (THC) Screen Not Detected COVID-19 (TESS) Negative COVID-19 Clin Com See Note Influenza Type A (DUANE) Negative Influenza Type B (DUANE) Negative Influenza A & B Note See Note Imaging Radiologist's Impressions: Impressions Head CT 08/08/23 09:21 IMPRESSION: No acute findings. Mild generalized atrophy and nonspecific periventricular white matter disease. Chest X-Ray 08/08/23 09:25 IMPRESSION: No evidence for acute disease in the chest. Abdomen/Pelvis CT 08/08/23 11:12 IMPRESSION: Small amount of thrombus in the distal SMV near the portal splenic confluence similar to previous exam. Cirrhotic-appearing liver, TIPS, 2 plastic bile duct stents, embolization coils and splenomegaly. No ascites. No intraperitoneal or retroperitoneal hematoma seen. Small amount of fat stranding and small amount of fluid in the mid abdominal wall. This may represent hematoma although appearance is similar to October 2019 CT. Evidence of previous ventral hernia repair with mesh. Small left renal stone. Fleischner guidelines were followed. Assessment and Plan (1) Acute hepatic encephalopathy: Status: Acute (2) Polysubstance abuse: Status: Acute Plan 68-year-old male with history of hypertension, hepatic cirrhosis complicated by pancytopenia and portal vein thrombosis anticoagulated with Lovenox, polysubstance use, GERD admitted for management of hepatic encephalopathy #Acute toxic metabolic encephalopathy due to hepatic encephalopathy -per vna, baseline is alert and oriented, ambulatory -vbg reassuring, head ct negative for acute intracranial abnormality -ammonia 63 -lactulose 30g TID, titrate to achieve 2-3 loose BMs daily -monitor mentation -GI consult #Decompensated hepatic cirrhosis- complicated by portal/mesenteric vein thrombosis, pancytopenia, coagulopathy -continue lovenox BID -lactulose as above -lasix/spironolactone, rifaximin #HTN -lasix spironolactone #Polysubstance use -utox positive for fentanyl, heroin #GERD -ppi DVt prophylaxis- lovenox bid full code pt requires inpt stay at least 2 midnights for management of acute hepatic encephalopathy requiring lactulose titration and close monitoring of mental status with expert consultation Quality Stroke Does the patient have a stroke diagnosis?: No VTE Prior VTE?: No VTE Risk Level:: Medical - moderate - high VTE Device Contraindication: Treatment Not Indicated VTE Drug Contraindication: N/A - Med Ordered
[2023-08-08] MEDS: 0.9 % Sodium Chloride 1,000 ML 100 ML IVCONT (14:24)
[2023-08-08] MEDS: Pantoprazole Sodium 40 MG/10 ML VIAL 80 MG IVPUSH (15:37)
[2023-08-08] MEDS: Octreotide Acetate 100 MCG/ML AMPUL 50 MCG IVPUSH (15:38)
--- NOTE | 2023-08-08 15:56 | PC.NURSE ---
at 1520 patient had 1 episode of vomiting of claudio red blood, patient inpt providers notified, ED [facility] at bedside, patient had 20# femoral line placed, patient medicated per MAR. type and screen ordered
[2023-08-08] MEDS: cefTRIAXone sodium 1 GM in 0.9 % Sodium Chloride 50 ML IV (16:18)
[2023-08-08] MEDS: Octreotide Acetate 500 MCG in 0.9 % Sodium Chloride 500 ML 50.1 MCG IVCONT (16:18)
[2023-08-08 16:26] LABS: MANUAL DIFF FLAG NO
[2023-08-08 16:27] LABS: Basophils Percent Auto 0.6 % (0-2); Eosinophils Absolute Auto 0.1 X10*3/uL (0.0-0.4); Eosinophils Percent Auto 1.8 % (0-4); Hematocrit 32.3 % (42.0-52.0); Hemoglobin 11.1 g/dl (14.0-18.0); Imm Gran Abs Auto 0.01 X10*3/uL (0.00-0.03); Imm Gran Pct Auto 0.2 % (0.0-0.4); Lymphocytes Absolute Auto 0.9 X10*3/uL (1.2-4.9); Lymphocytes Percent Auto 16.7 % (20-40); Mean Corpuscular HGB Conc 34.4 g/dl (31.0-36.0); Mean Corpuscular Hemoglobin 30.8 pg (27.0-33.0); Mean Corpuscular Volume 89.7 fL (80.0-98.0); Mean Platelet Volume 10.1 fL (9.4-12.4); Monocytes Absolute Auto 0.4 X10*3/uL (0.1-1.2); Monocytes Percent Auto 7.1 % (2-11); Neutrophils Absolute Auto 3.7 x10*3/uL (2.0-8.3); Neutrophils Percent Auto 73.6 % (45-73); Red Cell Distribution Width 13.5 % (11.0-16.0); White Blood Count 5.1 X10*3/uL (4.8-10.8)
[2023-08-08] MEDS: diazePAM 10 MG/2 ML CARTRIDGE 5 MG IVPUSH (16:27)
[2023-08-08 16:28] LABS: Platelet Count 80 X10*3/uL (160-400)
--- NOTE | 2023-08-08 16:30 | PC.NURSE ---
patient placed in soft restraints with other from inpt provider, patient agitated, restless, pulling at medical wires, and iv tubing. patient respirations equal and unlabored, VSS
--- NOTE | 2023-08-08 16:33 | PHA.MEDREC ---
Pharmacy Consult ? Medication Reconciliation Pharmacy has completed the medication reconciliation. Pt is very confused, does not have a PCP or list. Pt uses [facility] ([phone]). Spoke to media marketing manager Steffi ([phone]). That is her direct line. She explains pt does not have a PCP and was in [facility] for 7 days, discharged 07/17. [facility] a [facility] to administer enoxaparin. Pt also gets methadone 50 mg from them. Bc pt is homeless, they bring the methadone bottle to him daily. pt was last dosed on 08/07. today is when they found him passed out so he did not get methadone. Verified all other meds with Steffi. methadone 50 mg; [facility]; last doses 08/07/23 John
--- NOTE | 2023-08-08 16:45 | PM.EVENT ---
Event Note Date of Service: 08/08/23 Event Note: Patient is a 68 Y M w/ cirrhosis, c/b portal venous thrombosis, s/p prior TIPS, on home enoxaparin, found to be encephalopathic, presented to ED on 08/08, initially admitted to floor, developed large-volume hematemesis, intubated, admitted ICU; c/f variceal bleed; plan for ceftriaxone, pantoprazole, and octreotide gtt; case discussed with Dr. Valadez, GI, plan to scope in near future; Time Spent With Patient Time: Total time managing care of this patient today ____ minutes.
--- NOTE | 2023-08-08 16:46 | PM.EVENT ---
Event Note Date of Service: 08/08/23 Event Note: Called to bedside due to claudio hemoptysis with large clots (see below). Pt hemodyanically stable with HR 90s, SBP 150. Assisted ED provider with R femoral line placement. Remains HD. Discussed with Dr. Valadez. Given copious claudio hemoptysis, pt should be admitted to ICU for airway protection. Initialy H/H 13.2/38.9, repeat 11.1/32.3. T&S pending. Discussed with Dr. Ashraf, pt will be transferred to ICU for airway protection and further management. Time Spent With Patient Time: Total time managing care of this patient today ____ minutes.
[2023-08-08] MEDS: Etomidate 20 MG/10 ML VIAL IVPUSH (17:28)
[2023-08-08] MEDS: Rocuronium Bromide 50 MG/5 ML VIAL IVPUSH (17:28)
--- NOTE | 2023-08-08 17:45 | PC.NURSE ---
patient intubated with 7.5 tube 26' at the lip, patient given 20mg etomidate and 50mg rocuronium. patient intubation successful, OG placed, xray ordered for confirmation.
[2023-08-08] MEDS: propofoL 1,000 MG/100 ML VIAL 15.66 MG IVCONT (18:04)
[2023-08-08] MEDS: fentaNYL citrate/PF 100 MCG/2 ML VIAL IVPUSH (18:06)
[2023-08-08] MEDS: HYDROmorphone HCl 0.5 MG/0.5 ML SYRINGE IVPUSH (18:18)
--- NOTE | 2023-08-08 18:44 | PC.NURSE ---
welch cath placed in ED aprox 1200ml urine output
[2023-08-08] MEDS: Erythromycin Lactobionate 250 MG in 0.9 % Sodium Chloride 100 ML 100 MG IV (19:31)
[2023-08-08] MEDS: Furosemide 20 MG/2 ML VIAL IVPUSH (19:38)
[2023-08-08] MEDS: propofoL 1,000 MG/100 ML VIAL 20.88 MG IVCONT (21:47)
[2023-08-08 22:15] LABS: Hematocrit 30.4 % (42.0-52.0); Hemoglobin 10.5 g/dl (14.0-18.0); Mean Corpuscular HGB Conc 34.5 g/dl (31.0-36.0); Mean Corpuscular Hemoglobin 31.7 pg (27.0-33.0); Mean Corpuscular Volume 91.8 fL (80.0-98.0); Mean Platelet Volume 10.3 fL (9.4-12.4); Red Blood Count 3.31 X10*6/uL (4.60-5.80); Red Cell Distribution Width 13.9 % (11.0-16.0); White Blood Count 5.1 X10*3/uL (4.8-10.8)
[2023-08-08 22:17] LABS: Platelet Count 76 X10*3/uL (160-400)
[2023-08-08 22:21] LABS: INTERNATIONAL NORM RATIO 1.4 (0.9-1.1)
[2023-08-08 22:28] LABS: Alanine Aminotransferase 31 U/L (0-40); Albumin Level 2.7 g/dL (3.5-5.0); Alkaline Phosphatase 49 U/L (39-117); Anion Gap 11 (12-20); Aspartate Amino Transferase 46 U/L (5-37); Bilirubin Total 0.9 mg/dL (0.0-1.0); Blood Urea Nitrogen 36 mg/dL (9-16); Calcium 8.5 mg/dL (8.4-10.2); Carbon Dioxide 26 mmol/L (22-29); Chloride 113 mmol/L (96-108); Creatinine Clr Calc Pharmacy 79.8; Estimated Glomerular Filt Rate > 60; Glucose Random 162 mg/dL (60-115); Potassium 3.8 mmol/L (3.3-5.1); Sodium 146 mmol/L (135-145)
[2023-08-08 23:03] LABS: Ammonia 139 umol/L (13-55)
--- NOTE | 2023-08-08 23:11 | PC.NURSE ---
Total volume for platelets was 268ml.
[2023-08-09] VITALS (35 sets, daily range): BP systolic 84–152; BP diastolic 41–90; PULSE 77–106; RESP 11–21; TEMP 32–37.6; O2SAT 95–100; BMI 28.5
[2023-08-09] MEDS: Dextrose 5 % and 0.45 % NaCl 500 ML 100 ML IVCONT (00:09)
[2023-08-09] MEDS: Albumin Human 25 % 100 ML IV ×5 (00:27→15:09)
[2023-08-09] MEDS: Mineral OiL enema 133 ML ENEMA PR (00:39)
[2023-08-09] MEDS: Lactulose 20 GM/30 ML SOLUTION 200 GM PR ×4 (00:40→08:15)
[2023-08-09] MEDS: propofoL 1,000 MG/100 ML VIAL 20.88 MG IVCONT ×5 (01:26→20:31)
[2023-08-09] MEDS: Albumin Human 25 % 100 ML 200 ML IV (01:27)
[2023-08-09] MEDS: Octreotide Acetate 500 MCG in 0.9 % Sodium Chloride 500 ML 50.1 MCG IVCONT ×2 (01:30→11:20)
[2023-08-09 05:33] LABS: MANUAL DIFF FLAG NO
[2023-08-09 05:36] LABS: Basophils Percent Auto 0.7 % (0-2); Eosinophils Absolute Auto 0.1 X10*3/uL (0.0-0.4); Eosinophils Percent Auto 2.9 % (0-4); Hematocrit 25.4 % (42.0-52.0); Hemoglobin 8.7 g/dl (14.0-18.0); Lymphocytes Absolute Auto 0.7 X10*3/uL (1.2-4.9); Lymphocytes Percent Auto 24.7 % (20-40); Mean Corpuscular HGB Conc 34.3 g/dl (31.0-36.0); Mean Corpuscular Hemoglobin 31.6 pg (27.0-33.0); Mean Corpuscular Volume 92.4 fL (80.0-98.0); Mean Platelet Volume 10.1 fL (9.4-12.4); Monocytes Absolute Auto 0.2 X10*3/uL (0.1-1.2); Neutrophils Absolute Auto 1.8 x10*3/uL (2.0-8.3); Neutrophils Percent Auto 63.7 % (45-73); Platelet Count 56 X10*3/uL (160-400); Red Blood Count 2.75 X10*6/uL (4.60-5.80); Red Cell Distribution Width 13.9 % (11.0-16.0); White Blood Count 2.8 X10*3/uL (4.8-10.8)
[2023-08-09 05:44] LABS: Ammonia 81 umol/L (13-55); INTERNATIONAL NORM RATIO 1.5 (0.9-1.1); Prothrombin Time 18.5 SEC (11.1-13.3)
[2023-08-09 05:49] LABS: Anion Gap 10 (12-20); Blood Urea Nitrogen 33 mg/dL (9-16); Calcium 8.6 mg/dL (8.4-10.2); Carbon Dioxide 27 mmol/L (22-29); Chloride 114 mmol/L (96-108); Creatinine Clr Calc Pharmacy 85.7; Estimated Glomerular Filt Rate > 60; Glucose Random 166 mg/dL (60-115); Potassium 3.2 mmol/L (3.3-5.1); Sodium 148 mmol/L (135-145)
[2023-08-09] MEDS: Pantoprazole Sodium 40 MG/10 ML VIAL IVPUSH ×2 (05:57→16:27)
[2023-08-09] MEDS: Potassium Chloride/H20 40 MEQ/100 ML PIGGYBACK 100 MEQ IV (06:37)
[2023-08-09] MEDS: Furosemide 20 MG/2 ML VIAL IVPUSH (08:00)
[2023-08-09] MEDS: Thiamine HCL 100 MG in 0.9 % Sodium Chloride 100 ML 202 MG IV (08:00)
[2023-08-09 08:02] LABS: Hematocrit 26.5 % (42.0-52.0); Hemoglobin 8.9 g/dl (14.0-18.0); Mean Corpuscular HGB Conc 33.6 g/dl (31.0-36.0); Mean Corpuscular Hemoglobin 31.1 pg (27.0-33.0); Mean Corpuscular Volume 92.7 fL (80.0-98.0); Mean Platelet Volume 10.4 fL (9.4-12.4); Red Blood Count 2.86 X10*6/uL (4.60-5.80); White Blood Count 2.9 X10*3/uL (4.8-10.8)
[2023-08-09 08:03] LABS: ABG Base Excess 5.6 mmol/L; ABG HCO3 29 mmol/L (22-26); ABG pCO2 41 mmHg (32-45); ABG pH 7.46 (7.35-7.45); ABG pO2 65 mmHg (83-108)
[2023-08-09 08:03] LABS: Platelet Count 62 X10*3/uL (160-400)
[2023-08-09 08:29] LABS: Anion Gap 14 (12-20); Blood Urea Nitrogen 31 mg/dL (9-16); Carbon Dioxide 26 mmol/L (22-29); Chloride 115 mmol/L (96-108); Creatinine Clr Calc Pharmacy 83.5; Estimated Glomerular Filt Rate > 60; Glucose Random 137 mg/dL (60-115); Magnesium 1.7 mg/dL (1.6-2.6); Phosphorus 2.3 mg/dL (2.7-4.5); Potassium 3.9 mmol/L (3.3-5.1); Sodium 151 mmol/L (135-145)
--- NOTE | 2023-08-09 09:05 | PM.GICN ---
History of Present Illness Data of Consult Service Date: 08/09/23 Requesting physician: Giovanna Castillo Primary Care Provider: Unknown Physician HPI Reason for consult: UGIB This is a 68-year-old gentleman past medical history of decompensated cirrhosis with variceal bleeding status post tips, recent diagnosis of portal vein thrombosis on anticoagulation with Lovenox, who was brought to the hospital for altered mental status by his VNA. Patient is homeless, and VNA goes to his assisted twice a day to administer Lovenox. On the day of admission, he was found down next to his bed by them and brought to the hospital. When he was brought to the emergency room, he was tachycardic and slightly hypoxic. During the course of the day, he developed claudio bloody emesis with drop in hemoglobin from 13.2 to 8.7. Vitals with heart rate up to 100s. He was intubated for airway protection and transferred to ICU. On bedside evaluation, scant coffee grounds in OG tubing but no output in cannister. However has been passing melanotic BMs per nursing report. Review of Systems Review of Systems: Yes unobtainable due to endotracheal tube PMFSH Past Medical History Medical History (Updated 08/09/23 @ 10:13 by Leif Carr MD) Polysubstance abuse Splenomegaly Pancytopenia Portal vein thrombosis Cirrhosis HTN (hypertension) Social History Social History Household Members: Unknown / Unable to assess Housing: Unknown / Unable to assess Unable to assess alcohol history related to: Unable to respond Alcohol intake: current Patient Tobacco Use Status: Tobacco use Unknown Substance Use Type: Heroin Current occupational status: retired Current occupation: rt handed Meds Allergies Allergy/AdvReac Type Severity Reaction Status Date / Time No Known Allergies Allergy Verified 07/26/23 11:00 [No Known Allergies*] Active Medications: Current Medications Furosemide (Furosemide 20 Mg/2 Ml Vial) 20 mg IVPUSH BID@0900,1800 LEONARDO; Protocol Last Admin: 08/09/23 08:00 Dose: 20 mg Hydromorphone HCl (Hydromorphone Hcl 0.5 Mg/0.5 Ml Syringe) 0.5 mg IVPUSH Q4H PRN; Protocol PRN Reason: Pain, Moderate(Pain Scale 4-6) Last Admin: 08/08/23 18:18 Dose: 0.5 mg Octreotide Acetate 500 mcg/ (Sodium Chloride) 501 mls @ 50.1 mls/hr IVCONT .Q10H [facility] Last Admin: 08/09/23 01:30 Dose: 50 mcg/hr, 50.1 mls/hr Ceftriaxone Sodium 1 gm/ (Sodium Chloride) 50 mls @ 100 mls/hr IV Q24H [facility] Last Infusion: 08/08/23 18:50 Dose: Infused Thiamine HCl 100 mg/ Sodium (Chloride) 101 mls @ 202 mls/hr IV DAILY [facility] Last Infusion: 08/09/23 08:49 Dose: Infused Propofol (Diprivan) 1,000 mg in 100 mls @ 0 mls/hr IVCONT .Q0M [facility]; Protocol Last Admin: 08/09/23 05:57 Dose: 40 mcg/kg/min, 20.88 mls/hr Potassium Phosphate (Kphos) 15 mmol in 250 mls @ 62.5 mls/hr IV Q4H [facility] Stop: 08/09/23 16:44 Albumin Human (Kedbumin 25 %) 100 mls @ 100 mls/hr IV Q6H [facility] Stop: 08/10/23 03:59 Ondansetron HCl (Ondansetron Hcl 4 Mg/2 Ml Vial) 4 mg IVPUSH Q8H PRN PRN Reason: Nausea and Vomiting Pantoprazole Sodium (Pantoprazole Sodium 40 Mg/10 Ml Vial) 40 mg IVPUSH BID@0630,1630 [facility] Last Admin: 08/09/23 05:57 Dose: 40 mg Home Medications Medication Instructions Recorded Confirmed Last Taken Type ferrous sulfate 325 mg (65 mg 325 mg PO DAILY 08/28/20 08/08/23 Unknown History iron) tablet furosemide 40 mg tablet 40 mg PO DAILY 08/28/20 08/08/23 Unknown History rifaximin 550 mg tablet 550 mg PO BID 08/28/20 08/08/23 Unknown History docusate sodium 100 mg capsule 100 mg PO BID PRN Constipation 08/08/23 08/08/23 Unknown History hydroxyzine HCl 25 mg tablet 25 mg PO QID PRN Anxiety 08/08/23 08/08/23 Unknown History methadone 10 mg/mL oral 50 mg PO DAILY 08/08/23 08/08/23 08/07/23 History concentrate (Methadone Intensol) pantoprazole 40 mg tablet,delayed 40 mg PO BID 08/08/23 08/08/23 Unknown History release (Protonix) Physical Exam Vital Signs: Vital Signs: Last Vital Signs Temp 98.4 F 08/09/23 08:00 Pulse 102 H 08/09/23 08:00 Resp 15 08/09/23 08:00 BP 119/70 08/09/23 08:00 Pulse Ox 98 08/09/23 08:00 O2 Del Method Mechanical Ventil ation 08/09/23 08:00 O2 Flow Rate 08/09/23 07:00 FiO2 08/09/23 08:00 BMI result Body Mass Index 28.5 Gen appear: sedated, unkempt HEENT: nonicteric Chest: mechanically ventilated Abd: soft, nondistended, no wincing to palpation Ext: diffuse silvery plaques on bilateral lower extremities Results Labs 08/09/23 07:52 08/09/23 07:52 Labs: Short CBC 08/08/23 08/08/23 08/08/23 Range/Units 09:33 16:23 22:07 WBC 4.6 L 5.1 5.1 (4.8-10.8) X10*3/uL Hgb 13.2 L 11.1 L 10.5 L (14.0-18.0) g/dl Hct 38.9 L 32.3 L 30.4 L (42.0-52.0) % Plt Count 80 L 80 L 76 L (160-400) X10*3/uL 08/09/23 08/09/23 Range/Units 05:16 07:52 WBC 2.8 L 2.9 L (4.8-10.8) X10*3/uL Hgb 8.7 L 8.9 L (14.0-18.0) g/dl Hct 25.4 L 26.5 L (42.0-52.0) % Plt Count 56 L D 62 L (160-400) X10*3/uL BMP 08/08/23 08/08/23 08/09/23 09:33 22:07 05:16 Sodium 142 146 H 148 H Potassium 4.3 3.8 3.2 L Chloride 104 113 H 114 H Carbon Dioxide 29 26 27 BUN 31 H 36 H 33 H Creatinine 0.96 0.98 0.92 Calcium 9.7 D 8.5 D 8.6 08/09/23 07:52 Sodium 151 H Potassium 3.9 D Chloride 115 H Carbon Dioxide 26 BUN 31 H Creatinine 0.94 Calcium 9.0 Cardiac Enzymes 08/08/23 Range/Units 08:36 Total Creatine Kinase 452 H (38-174) U/L Liver Function 08/08/23 08/08/23 Range/Units 09:33 22:07 Total Bilirubin 1.5 H 0.9 (0.0-1.0) mg/dL AST 63 H 46 H (5-37) U/L ALT 41 H 31 (0-40) U/L Alkaline Phosphatase 73 49 (39-117) U/L Albumin 3.4 L 2.7 L (3.5-5.0) g/dL Urine 08/08/23 Range/Units 12:24 Urine Color Yellow Urine Appearance Clear Urine pH 7.5 (5.0-9.0) Ur Specific [place] >= 1.030 H (1.005-1.025) Urine Protein Negative (Neg-Trace) mg/dL Urine Glucose (UA) Negative (Negative) mg/dL Assessment and Plan (1) Cirrhosis: Status: Acute (2) S/P TIPS (transjugular intrahepatic portosystemic shunt): Status: Acute (3) Upper GI bleed: Status: Acute (4) Portal vein thrombosis: Status: Acute (5) Acute hepatic encephalopathy: Status: Acute Plan #HCV related decompensated cirrhosis MELD-Na 11 s/p TIPS PVT thrombosis on AC Hx of variceal banding Will need records of recent hospitalisation at [facility] to determine indication for anticoagulation (typically chronic PVT is not anticoagulated unless pt listed or to be listed for transplant, jayjay with hx of variceal bleeding). He also appears to have had recent biliary intervention and still has biliary stents in place. In terms of GIB, ddx include variceal, PHG, GAVE, PUD. Will need urgent EGD for evaluation +/- tx. Plan: - Pls keep him NPO - Maintain x2 large IV bore access at all times - Transfuse for Hb < 7. Pls avoid overtransfusing as that increase portal pressures and worsen bleeding - Hold lovenox - IV Octreotide, protonix and ceftriaxone - Check US abd with doppler to r/o TIPS stenosis - EGD today - [facility] records requested Procedures Date of Service Date of Service: 08/09/23
--- NOTE | 2023-08-09 10:07 | PM.CCPN ---
Subjective Subjective Date of Service: 08/09/23 Interval History: 68-year-old gentleman with underlying polysubstance abuse now on methadone, longstanding cirrhosis with portal vein thrombosis with prior GI bleeds and TIPS procedure, on anticoagulation admitted on 08/08/2023 with hepatic encephalopathy and substance abuse further complicated by upper GI bleed requiring intubation for airway protection. Patient was started on octreotide and PPI. He was evaluated by gastroenterology service with plans for upper endoscopy today. No events overnight. Critical Care Time (minutes): 60 Physical Exam Vital Signs: Vital Signs: Last Vital Signs Temp 98.6 F 08/09/23 09:00 Pulse 101 H 08/09/23 09:00 Resp 13 08/09/23 09:00 BP 138/80 08/09/23 09:00 Pulse Ox 98 08/09/23 09:00 O2 Del Method Mechanical Ventil ation 08/09/23 09:00 O2 Flow Rate 08/09/23 07:00 FiO2 08/09/23 09:00 BMI result Body Mass Index 28.5 Const: General: no acute distress and other (Sedated on the vent) Eyes: Sclerae: sclerae normal EOM: EOMs intact bilaterally Neck: Neck: Yes no lymphadenopathy, Yes trachea midline and Yes supple Resp: Auscultation: clear to auscultation bilaterally Cardio: Rate: regular rate Rhythm: regular rhythm Heart sounds: no gallops, no murmurs and no rubs GI: Palpation (GI): Soft to palpation and Other GI palpation findings present ( Nontender) Auscultation: normal bowel sounds Extrem: General: Yes no pedal edema, No clubbing and No cyanosis Objective Data Labs 08/09/23 07:52 08/09/23 07:52 Labs: Laboratory Results - last 24 hr 08/08/23 08/08/23 08/08/23 08:36 09:33 10:41 WBC RBC Hgb Hct MCV MCH MCHC RDW Plt Count MPV Immature Gran % (Auto) Neut % (Auto) Lymph % (Auto) [place] % (Auto) Eos % (Auto) Baso % (Auto) Lymph # (Auto) [place] # (Auto) Eos # (Auto) Baso # (Auto) Abs Immat Gran (auto) Absolute Neuts (auto) Absolute Nucleated RBC Nucleated RBC % (auto) PT INR O2 Saturation ABG pH at Pt Temp ABG pCO2 at Pt Temp ABG pO2 at Pt Temp ABG HCO3 ABG Base Excess (Actual) Sodium Potassium Chloride Carbon Dioxide Anion Gap BUN Creatinine Estim Creat Clear Calc Estimated GFR Random Glucose Calcium Phosphorus Magnesium Total Bilirubin AST ALT Alkaline Phosphatase Ammonia Total Creatine Kinase 452 H Troponin I High Sens 9.3 Total Protein Albumin Urine Color Urine Appearance Urine pH Ur Specific [place] Urine Protein Urine Glucose (UA) Urine Ketones Urine Blood Urine Nitrite Ur Leukocyte Esterase Urine Opiates Screen Urine Fentanyl Screen Ur Barbiturates Screen Ur Phencyclidine Scrn Ur Amphetamines Screen U Benzodiazepines Scrn Urine Cocaine Screen U Marijuana (THC) Screen COVID-19 (TESS) Negative COVID-19 Clin Com See Note Influenza Type A (DUANE) Negative Influenza Type B (DUANE) Negative Influenza A & B Note See Note Blood Type Antibody Screen Crossmatch 08/08/23 08/08/23 08/08/23 12:24 16:22 16:23 WBC 5.1 RBC 3.60 L Hgb 11.1 L Hct 32.3 L MCV 89.7 MCH 30.8 MCHC 34.4 RDW 13.5 Plt Count 80 L MPV 10.1 Immature Gran % (Auto) 0.2 Neut % (Auto) 73.6 H Lymph % (Auto) 16.7 L [place] % (Auto) 7.1 Eos % (Auto) 1.8 Baso % (Auto) 0.6 Lymph # (Auto) 0.9 L [place] # (Auto) 0.4 Eos # (Auto) 0.1 Baso # (Auto) 0.0 Abs Immat Gran (auto) 0.01 Absolute Neuts (auto) 3.7 Absolute Nucleated RBC 0.000 Nucleated RBC % (auto) 0.0 PT INR O2 Saturation ABG pH at Pt Temp ABG pCO2 at Pt Temp ABG pO2 at Pt Temp ABG HCO3 ABG Base Excess (Actual) Sodium Potassium Chloride Carbon Dioxide Anion Gap BUN Creatinine Estim Creat Clear Calc Estimated GFR Random Glucose Calcium Phosphorus Magnesium Total Bilirubin AST ALT Alkaline Phosphatase Ammonia Total Creatine Kinase Troponin I High Sens Total Protein Albumin Urine Color Yellow Urine Appearance Clear Urine pH 7.5 Ur Specific [place] >= 1.030 H Urine Protein Negative Urine Glucose (UA) Negative Urine Ketones Negative Urine Blood Negative Urine Nitrite Negative Ur Leukocyte Esterase Negative Urine Opiates Screen POSITIVE H Urine Fentanyl Screen POSITIVE H Ur Barbiturates Screen Not Detected Ur Phencyclidine Scrn Not Detected Ur Amphetamines Screen Not Detected U Benzodiazepines Scrn Not Detected Urine Cocaine Screen Not Detected U Marijuana (THC) Screen Not Detected COVID-19 (TESS) COVID-19 Clin Com Influenza Type A (DUANE) Influenza Type B (DUANE) Influenza A & B Note Blood Type O Positive Antibody Screen NEGATIVE Crossmatch See Detail 08/08/23 08/09/23 08/09/23 22:07 05:16 07:52 WBC 5.1 2.8 L 2.9 L RBC 3.31 L 2.75 L 2.86 L Hgb 10.5 L 8.7 L 8.9 L Hct 30.4 L 25.4 L 26.5 L MCV 91.8 92.4 92.7 MCH 31.7 31.6 31.1 MCHC 34.5 34.3 33.6 RDW 13.9 13.9 14.0 Plt Count 76 L 56 L D 62 L MPV 10.3 10.1 10.4 Immature Gran % (Auto) 0.0 Neut % (Auto) 63.7 Lymph % (Auto) 24.7 [place] % (Auto) 8.0 Eos % (Auto) 2.9 Baso % (Auto) 0.7 Lymph # (Auto) 0.7 L [place] # (Auto) 0.2 Eos # (Auto) 0.1 Baso # (Auto) 0.0 Abs Immat Gran (auto) 0.00 Absolute Neuts (auto) 1.8 L Absolute Nucleated RBC 0.000 0.000 0.000 Nucleated RBC % (auto) 0.0 0.0 0.0 PT 17.0 H 18.5 H INR 1.4 H 1.5 H O2 Saturation ABG pH at Pt Temp ABG pCO2 at Pt Temp ABG pO2 at Pt Temp ABG HCO3 ABG Base Excess (Actual) Sodium 146 H 148 H 151 H Potassium 3.8 3.2 L 3.9 D Chloride 113 H 114 H 115 H Carbon Dioxide 26 27 26 Anion Gap 11 L 10 L 14 BUN 36 H 33 H 31 H Creatinine 0.98 0.92 0.94 Estim Creat Clear Calc 79.8 85.7 83.5 Estimated GFR > 60 > 60 > 60 Random Glucose 162 H 166 H 137 H Calcium 8.5 D 8.6 9.0 Phosphorus 2.3 L Magnesium 1.7 Total Bilirubin 0.9 AST 46 H ALT 31 Alkaline Phosphatase 49 Ammonia 139 H 81 H Total Creatine Kinase Troponin I High Sens Total Protein 6.0 L Albumin 2.7 L Urine Color Urine Appearance Urine pH Ur Specific [place] Urine Protein Urine Glucose (UA) Urine Ketones Urine Blood Urine Nitrite Ur Leukocyte Esterase Urine Opiates Screen Urine Fentanyl Screen Ur Barbiturates Screen Ur Phencyclidine Scrn Ur Amphetamines Screen U Benzodiazepines Scrn Urine Cocaine Screen U Marijuana (THC) Screen COVID-19 (TESS) COVID-19 Clin Com Influenza Type A (DUANE) Influenza Type B (DUANE) Influenza A & B Note Blood Type Antibody Screen Crossmatch 08/09/23 07:57 WBC RBC Hgb Hct MCV MCH MCHC RDW Plt Count MPV Immature Gran % (Auto) Neut % (Auto) Lymph % (Auto) [place] % (Auto) Eos % (Auto) Baso % (Auto) Lymph # (Auto) [place] # (Auto) Eos # (Auto) Baso # (Auto) Abs Immat Gran (auto) Absolute Neuts (auto) Absolute Nucleated RBC Nucleated RBC % (auto) PT INR O2 Saturation 92.0 ABG pH at Pt Temp 7.46 H ABG pCO2 at Pt Temp 41 ABG pO2 at Pt Temp 65 L ABG HCO3 29 H ABG Base Excess (Actual) 5.6 Sodium Potassium Chloride Carbon Dioxide Anion Gap BUN Creatinine Estim Creat Clear Calc Estimated GFR Random Glucose Calcium Phosphorus Magnesium Total Bilirubin AST ALT Alkaline Phosphatase Ammonia Total Creatine Kinase Troponin I High Sens Total Protein Albumin Urine Color Urine Appearance Urine pH Ur Specific [place] Urine Protein Urine Glucose (UA) Urine Ketones Urine Blood Urine Nitrite Ur Leukocyte Esterase Urine Opiates Screen Urine Fentanyl Screen Ur Barbiturates Screen Ur Phencyclidine Scrn Ur Amphetamines Screen U Benzodiazepines Scrn Urine Cocaine Screen U Marijuana (THC) Screen COVID-19 (TESS) COVID-19 Clin Com Influenza Type A (DUANE) Influenza Type B (DUANE) Influenza A & B Note Blood Type Antibody Screen Crossmatch Progress Note: A&P Assessment and plan (1) Upper GI bleed: Status: Acute (2) Cirrhosis: Status: Acute (3) Polysubstance abuse: Status: Acute (4) Portal vein thrombosis: Status: Acute (5) S/P TIPS (transjugular intrahepatic portosystemic shunt): Status: Acute (6) Acute hepatic encephalopathy: Status: Acute (7) Acute respiratory failure: Status: Acute Plan Assessment: 68-year-old gentleman with underlying polysubstance abuse, cirrhosis with prior TIPS procedure admitted with hepatic encephalopathy and upper GI bleed Plan: Neuro: Hepatic encephalopathy, continue lactulose. Cardiac: No acute issues. Pulmonary: Intubated for airway protection with acute upper GI bleed. Continue ventilatory support. Renal: No acute issues. Endo: No acute issues. GI: Cirrhosis status post prior TIPS with portal vein thrombosis, previously anticoagulated. Gastroenterology service care appreciated. Planned for upper endoscopy today. Continue octreotide and PPI. Continue lactulose. ID: No acute issues. Heme/Onc: No acute issues. Psych: No acute issues. Miscellaneous: No acute issues. Prophylaxis: Pneumatic compression, PPI Diet: Nothing by mouth Critical care time spent: 60 minutes Quality Stroke Does the patient have a stroke diagnosis?: No VTE Prior VTE?: No VTE Risk Level:: Medical - moderate - high VTE Device Contraindication: Treatment Not Indicated VTE Drug Contraindication: N/A - Med Ordered
[2023-08-09] MEDS: Potassium Phosphate/NS 15 MMOL/250 ML PLAST..BAG 62.5 MMOL IV ×2 (10:17→15:21)
[2023-08-09 11:05] LABS: Venous Blood Gas Refer to POC result
--- NOTE | 2023-08-09 11:07 | MHC.CLN ---
PT IS INTUBATED AND SEDATED CURRENTLY NPO IF TF NEEDED; RECOMMEND PROMOTE AT MAX GOAL RATE 60ML/HR TO PROVIDE 1440KCALS (1991KCALS WITH SEDATION; 26KCALS/KG), 90G PROTEIN (1.15G/KG), 1208ML FREE WATER MONITOR TOLERANCE, RESIDUALS AND LYTES FOLLOWING FOR DIET ADVANCEMENT
--- NOTE | 2023-08-09 11:49 | MHC.SHP ---
Pre-Procedural Eval Section A - 24 Hr Update-Section A only Date of Service: 08/09/23 The patient is an INPATIENT: Yes The patient has been examined within 24 hours of the surgical procedure. The History & Physical has been completed within 30 days and I have reviewed it.: Yes Section B - Complete if H&P > 30 days Chief Complaint: Hepatic Encephalopathy Allergies: Allergies Allergy/AdvReac Type Severity Reaction Status Date / Time No Known Allergies Allergy Verified 07/26/23 11:00 [No Known Allergies*] Plan Diagnosis/Plan: Unchanged I have reviewed the history and physical and performed a pertinent physical examination on my patient. No changes have occurred unless specified. Time Spent With Patient Time: Total time managing care of this patient today ____ minutes.
--- NOTE | 2023-08-09 12:07 | P.CONAN_ITS ---
[facility] Active Problems Active Problems: All Active Problems (Updated 08/09/23 @ 10:13 by Leif Carr MD) Acute respiratory failure (Acute) S/P TIPS (transjugular intrahepatic portosystemic shunt) (Acute) Cirrhosis (Acute) Upper GI bleed (Acute) Portal vein thrombosis (Acute) Polysubstance abuse (Acute) Acute hepatic encephalopathy (Acute) Distal radius fracture, right (Acute) Current use of anticoagulant therapy (Acute) Past Medical History Medical History (Updated 08/09/23 @ 10:13 by Leif Carr MD) Polysubstance abuse Splenomegaly Pancytopenia Portal vein thrombosis Cirrhosis HTN (hypertension) Social History Social History Household Members: Unknown / Unable to assess Housing: Unknown / Unable to assess Unable to assess alcohol history related to: Unable to respond Alcohol intake: current Patient Tobacco Use Status: Tobacco use Unknown Substance Use Type: Heroin Current occupational status: retired Current occupation: rt handed Meds Allergies Allergy/AdvReac Type Severity Reaction Status Date / Time No Known Allergies Allergy Verified 07/26/23 11:00 [No Known Allergies*] Active Medications: Current Medications Hydromorphone HCl (Hydromorphone Hcl 0.5 Mg/0.5 Ml Syringe) 0.5 mg IVPUSH Q4H PRN; Protocol PRN Reason: Pain, Moderate(Pain Scale 4-6) Last Admin: 08/08/23 18:18 Dose: 0.5 mg Octreotide Acetate 500 mcg/ (Sodium Chloride) 501 mls @ 50.1 mls/hr IVCONT .Q10H LEONARDO Last Admin: 08/09/23 11:20 Dose: 50 mcg/hr, 50.1 mls/hr Ceftriaxone Sodium 1 gm/ (Sodium Chloride) 50 mls @ 100 mls/hr IV Q24H LEONARDO Last Infusion: 08/08/23 18:50 Dose: Infused Thiamine HCl 100 mg/ Sodium (Chloride) 101 mls @ 202 mls/hr IV DAILY LEONARDO Last Infusion: 08/09/23 08:49 Dose: Infused Propofol (Diprivan) 1,000 mg in 100 mls @ 0 mls/hr IVCONT .Q0M LEONARDO; Protocol Last Admin: 08/09/23 11:07 Dose: 40 mcg/kg/min, 20.88 mls/hr Potassium Phosphate (Kphos) 15 mmol in 250 mls @ 62.5 mls/hr IV Q4H [facility] Stop: 08/09/23 16:44 Last Admin: 08/09/23 10:17 Dose: 62.5 mls/hr Albumin Human (Kedbumin 25 %) 100 mls @ 100 mls/hr IV Q6H [facility] Stop: 08/10/23 03:59 Last Infusion: 08/09/23 11:20 Dose: Infused Ondansetron HCl (Ondansetron Hcl 4 Mg/2 Ml Vial) 4 mg IVPUSH Q8H PRN PRN Reason: Nausea and Vomiting Pantoprazole Sodium (Pantoprazole Sodium 40 Mg/10 Ml Vial) 40 mg IVPUSH BID@0630,1630 [facility] Last Admin: 08/09/23 05:57 Dose: 40 mg Home Medications Medication Instructions Recorded Confirmed Last Taken Type ferrous sulfate 325 mg (65 mg 325 mg PO DAILY 08/28/20 08/08/23 Unknown History iron) tablet furosemide 40 mg tablet 40 mg PO DAILY 08/28/20 08/08/23 Unknown History rifaximin 550 mg tablet 550 mg PO BID 08/28/20 08/08/23 Unknown History docusate sodium 100 mg capsule 100 mg PO BID PRN Constipation 08/08/23 08/08/23 Unknown History hydroxyzine HCl 25 mg tablet 25 mg PO QID PRN Anxiety 08/08/23 08/08/23 Unknown History methadone 10 mg/mL oral 50 mg PO DAILY 08/08/23 08/08/23 08/07/23 History concentrate (Methadone Intensol) pantoprazole 40 mg tablet,delayed 40 mg PO BID 08/08/23 08/08/23 Unknown History release (Protonix) Exam Height,Weight and Vital Signs: Height 5 ft 9 in Weight 87.5 kg Last Vital Signs Temp 98.6 F 08/09/23 11:23 Pulse 88 08/09/23 11:23 Resp 14 08/09/23 11:23 BP 138/84 08/09/23 11:23 Pulse Ox 98 08/09/23 11:00 O2 Del Method Mechanical Ventilation 08/09/23 11:00 O2 Flow Rate 08/09/23 07:00 FiO2 08/09/23 11:25 Pertinent Lab Results Pertinent Lab Results: Laboratory Tests 08/08/23 08/08/23 08/08/23 08:36 09:33 09:41 WBC 4.6 L RBC 4.32 L Hgb 13.2 L Hct 38.9 L MCV 90.0 MCH 30.6 MCHC 33.9 RDW 13.5 Plt Count 80 L MPV 10.6 Immature Gran % (Auto) 0.2 Neut % (Auto) 78.0 H Lymph % (Auto) 12.6 L [place] % (Auto) 6.9 Eos % (Auto) 1.7 Baso % (Auto) 0.6 Lymph # (Auto) 0.6 L [place] # (Auto) 0.3 Eos # (Auto) 0.1 Baso # (Auto) 0.0 Abs Immat Gran (auto) 0.01 Absolute Neuts (auto) 3.6 Absolute Nucleated RBC 0.000 Nucleated RBC % (auto) 0.0 PT 16.3 H INR 1.3 H APTT 37.9 H O2 Saturation ABG pH at Pt Temp ABG pCO2 at Pt Temp ABG pO2 at Pt Temp ABG HCO3 ABG Base Excess (Actual) VBG pH 7.44 H VBG pCO2 45 VBG pO2 36 VBG HCO3 31 H VBG O2 Saturation 50.0 VBG Base Excess 6.2 Sodium 142 Potassium 4.3 Chloride 104 Carbon Dioxide 29 Anion Gap 13 BUN 31 H Creatinine 0.96 Estim Creat Clear Calc 81.5 Estimated GFR > 60 Random Glucose 104 Calcium 9.7 D Phosphorus Magnesium Total Bilirubin 1.5 H AST 63 H ALT 41 H Alkaline Phosphatase 73 Ammonia 63 H Total Creatine Kinase 452 H Troponin I High Sens 9.3 Total Protein 7.8 Albumin 3.4 L Urine Color Urine Appearance Urine pH Ur Specific Bowler Urine Protein Urine Glucose (UA) Urine Ketones Urine Blood Urine Nitrite Ur Leukocyte Esterase Urine Opiates Screen Urine Fentanyl Screen Ur Barbiturates Screen Ur Phencyclidine Scrn Ur Amphetamines Screen U Benzodiazepines Scrn Urine Cocaine Screen U Marijuana (THC) Screen COVID-19 (TESS) COVID-19 Clin Com Influenza Type A (DUANE) Influenza Type B (DUANE) Influenza A & B Note Blood Type Antibody Screen Crossmatch 08/08/23 08/08/23 08/08/23 10:41 12:24 16:22 WBC RBC Hgb Hct MCV MCH MCHC RDW Plt Count MPV Immature Gran % (Auto) Neut % (Auto) Lymph % (Auto) [place] % (Auto) Eos % (Auto) Baso % (Auto) Lymph # (Auto) [place] # (Auto) Eos # (Auto) Baso # (Auto) Abs Immat Gran (auto) Absolute Neuts (auto) Absolute Nucleated RBC Nucleated RBC % (auto) PT INR APTT O2 Saturation ABG pH at Pt Temp ABG pCO2 at Pt Temp ABG pO2 at Pt Temp ABG HCO3 ABG Base Excess (Actual) VBG pH VBG pCO2 VBG pO2 VBG HCO3 VBG O2 Saturation VBG Base Excess Sodium Potassium Chloride Carbon Dioxide Anion Gap BUN Creatinine Estim Creat Clear Calc Estimated GFR Random Glucose Calcium Phosphorus Magnesium Total Bilirubin AST ALT Alkaline Phosphatase Ammonia Total Creatine Kinase Troponin I High Sens Total Protein Albumin Urine Color Yellow Urine Appearance Clear Urine pH 7.5 Ur Specific Bowler >= 1.030 H Urine Protein Negative Urine Glucose (UA) Negative Urine Ketones Negative Urine Blood Negative Urine Nitrite Negative Ur Leukocyte Esterase Negative Urine Opiates Screen POSITIVE H Urine Fentanyl Screen POSITIVE H Ur Barbiturates Screen Not Detected Ur Phencyclidine Scrn Not Detected Ur Amphetamines Screen Not Detected U Benzodiazepines Scrn Not Detected Urine Cocaine Screen Not Detected U Marijuana (THC) Screen Not Detected COVID-19 (TESS) Negative COVID-19 Clin Com See Note Influenza Type A (DUANE) Negative Influenza Type B (DUANE) Negative Influenza A & B Note See Note Blood Type O Positive Antibody Screen NEGATIVE Crossmatch See Detail 08/08/23 08/08/23 08/09/23 16:23 22:07 05:16 WBC 5.1 5.1 2.8 L RBC 3.60 L 3.31 L 2.75 L Hgb 11.1 L 10.5 L 8.7 L Hct 32.3 L 30.4 L 25.4 L MCV 89.7 91.8 92.4 MCH 30.8 31.7 31.6 MCHC 34.4 34.5 34.3 RDW 13.5 13.9 13.9 Plt Count 80 L 76 L 56 L D MPV 10.1 10.3 10.1 Immature Gran % (Auto) 0.2 0.0 Neut % (Auto) 73.6 H 63.7 Lymph % (Auto) 16.7 L 24.7 [place] % (Auto) 7.1 8.0 Eos % (Auto) 1.8 2.9 Baso % (Auto) 0.6 0.7 Lymph # (Auto) 0.9 L 0.7 L [place] # (Auto) 0.4 0.2 Eos # (Auto) 0.1 0.1 Baso # (Auto) 0.0 0.0 Abs Immat Gran (auto) 0.01 0.00 Absolute Neuts (auto) 3.7 1.8 L Absolute Nucleated RBC 0.000 0.000 0.000 Nucleated RBC % (auto) 0.0 0.0 0.0 PT 17.0 H 18.5 H INR 1.4 H 1.5 H APTT O2 Saturation ABG pH at Pt Temp ABG pCO2 at Pt Temp ABG pO2 at Pt Temp ABG HCO3 ABG Base Excess (Actual) VBG pH VBG pCO2 VBG pO2 VBG HCO3 VBG O2 Saturation VBG Base Excess Sodium 146 H 148 H Potassium 3.8 3.2 L Chloride 113 H 114 H Carbon Dioxide 26 27 Anion Gap 11 L 10 L BUN 36 H 33 H Creatinine 0.98 0.92 Estim Creat Clear Calc 79.8 85.7 Estimated GFR > 60 > 60 Random Glucose 162 H 166 H Calcium 8.5 D 8.6 Phosphorus Magnesium Total Bilirubin 0.9 AST 46 H ALT 31 Alkaline Phosphatase 49 Ammonia 139 H 81 H Total Creatine Kinase Troponin I High Sens Total Protein 6.0 L Albumin 2.7 L Urine Color Urine Appearance Urine pH Ur Specific Bow[place] Urine Protein Urine Glucose (UA) Urine Ketones Urine Blood Urine Nitrite Ur Leukocyte Esterase Urine Opiates Screen Urine Fentanyl Screen Ur Barbiturates Screen Ur Phencyclidine Scrn Ur Amphetamines Screen U Benzodiazepines Scrn Urine Cocaine Screen U Marijuana (THC) Screen COVID-19 (TESS) COVID-19 Clin Com Influenza Type A (DUANE) Influenza Type B (DUANE) Influenza A & B Note Blood Type Antibody Screen Crossmatch 08/09/23 08/09/23 07:52 07:57 WBC 2.9 L RBC 2.86 L Hgb 8.9 L Hct 26.5 L MCV 92.7 MCH 31.1 MCHC 33.6 RDW 14.0 Plt Count 62 L MPV 10.4 Immature Gran % (Auto) Neut % (Auto) Lymph % (Auto) [place] % (Auto) Eos % (Auto) Baso % (Auto) Lymph # (Auto) [place] # (Auto) Eos # (Auto) Baso # (Auto) Abs Immat Gran (auto) Absolute Neuts (auto) Absolute Nucleated RBC 0.000 Nucleated RBC % (auto) 0.0 PT INR APTT O2 Saturation 92.0 ABG pH at Pt Temp 7.46 H ABG pCO2 at Pt Temp 41 ABG pO2 at Pt Temp 65 L ABG HCO3 29 H ABG Base Excess (Actual) 5.6 VBG pH VBG pCO2 VBG pO2 VBG HCO3 VBG O2 Saturation VBG Base Excess Sodium 151 H Potassium 3.9 D Chloride 115 H Carbon Dioxide 26 Anion Gap 14 BUN 31 H Creatinine 0.94 Estim Creat Clear Calc 83.5 Estimated GFR > 60 Random Glucose 137 H Calcium 9.0 Phosphorus 2.3 L Magnesium 1.7 Total Bilirubin AST ALT Alkaline Phosphatase Ammonia Total Creatine Kinase Troponin I High Sens Total Protein Albumin Urine Color Urine Appearance Urine pH Ur Specific [place] Urine Protein Urine Glucose (UA) Urine Ketones Urine Blood Urine Nitrite Ur Leukocyte Esterase Urine Opiates Screen Urine Fentanyl Screen Ur Barbiturates Screen Ur Phencyclidine Scrn Ur Amphetamines Screen U Benzodiazepines Scrn Urine Cocaine Screen U Marijuana (THC) Screen COVID-19 (TESS) COVID-19 Clin Com Influenza Type A (DUANE) Influenza Type B (DUANE) Influenza A & B Note Blood Type Antibody Screen Crossmatch Airway Mallampati Class: Patient Non-Cooperative Other: pt is intubated in ICU
[2023-08-09] MEDS: Erythromycin Lactobionate 250 MG in 0.9 % Sodium Chloride 100 ML 100 MG IV (12:15)
--- NOTE | 2023-08-09 14:05 | P.OP_ITS ---
Operative Note Operative Note Date of Service: 08/09/23 Narrative: Procedure: Esophagogastroduodenoscopy Endoscopist: Brenda Valadez MD Indication: UGIB Anesthesia Provider: Dr Julio Ruby Anesthesia Type: GEA ?? EGD Procedure:?? The procedure, indications, preparation and potential complications were reviewed with the patient's HCP Chantel Souza, who indicated understanding and gave informed consent over the phone to proceed. A physical exam was performed. The patient was already intubated for airway protection by the ICU team. The endoscope was introduced through the mouth, and advanced to the second part of duodenum. The mucosa was carefully examined on slow withdrawal of the endoscope. The patient tolerated the procedure well. There were no immediate complications.? ? EGD Findings:? * Esophagus:? Large 2 cm post banding ulcer with adherent clot at 35 cm. Another post banding ulcer with visible vessel at 37 cm. The Z line was at 39 cm. Hemospray was applied from Z line to 33 cm to capture the post banding ulcers. * Stomach:? Diffuse congestion and erythema in mosaic pattern consistent with portal hypertensive gastropathy was noted in the whole stomach. A small 5 mm healing ulcer was noted in the distal body along the greater curvature. * Duodenum:? Normal mucosa was noted in the whole of the examined duodenum. There were 2 plastic stents coming out fo major papilla. ? EGD Impressions:? * Post-banding ulcers (hemospray) * Portal hypertensive gastropathy * Healing gastric ulcer * Previously placed biliary stents ?? Recommendations:?? * Do not place OG or NG * Although was not technically variceal bleeding, would favor keeping octreotide on for at least another 24 hours to keep the varices decompressed. * Start liquid carafate 1g QID to be continues for 14 days * Pantoprazole 40 BID to be continued for 4 weeks and then once daily (has a healing gastric ulcer as well) * Cont IV Ceftriaxone 1g for total 7 days. Can be switched to Cipro PO at discharge. * Per records from [facility], pt has hx of C Diff, so will need concomitant Vancomycin PO while on antibiotics * Cont to HOLD Lovenox. * He should have repeat EGD in 2-3 weeks to document healing of post-banding ulcers as well as variceal obliteration before resuming this. Follows with [facility]. * Avoid NSAIDs, smoking and etOH.
--- NOTE | 2023-08-09 15:37 | PC.NURSE ---
late vital documentation as pt was in the OR for Endoscopy
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
[2023-08-09] MEDS: cefTRIAXone sodium 1 GM in 0.9 % Sodium Chloride 50 ML IV (16:27)
[2023-08-09] MEDS: Norepinephrine Bitartrate/D5W 8 MG/250 ML PLAST..BAG 8.2 MG IV (17:10)
[2023-08-09 17:58] LABS: MANUAL DIFF FLAG NO
[2023-08-09 18:08] LABS: Eosinophils Absolute Auto 0.1 X10*3/uL (0.0-0.4); Eosinophils Percent Auto 3.9 % (0-4); Hematocrit 26.4 % (42.0-52.0); Imm Gran Abs Auto 0.02 X10*3/uL (0.00-0.03); Imm Gran Pct Auto 0.6 % (0.0-0.4); Lymphocytes Absolute Auto 0.8 X10*3/uL (1.2-4.9); Lymphocytes Percent Auto 25.2 % (20-40); Mean Corpuscular HGB Conc 34.1 g/dl (31.0-36.0); Mean Corpuscular Hemoglobin 31.5 pg (27.0-33.0); Mean Corpuscular Volume 92.3 fL (80.0-98.0); Mean Platelet Volume 10.5 fL (9.4-12.4); Monocytes Absolute Auto 0.3 X10*3/uL (0.1-1.2); Monocytes Percent Auto 8.1 % (2-11); Neutrophils Absolute Auto 1.9 x10*3/uL (2.0-8.3); Neutrophils Percent Auto 61.2 % (45-73); Red Blood Count 2.86 X10*6/uL (4.60-5.80); Red Cell Distribution Width 14.2 % (11.0-16.0); White Blood Count 3.1 X10*3/uL (4.8-10.8)
[2023-08-09 18:12] LABS: Platelet Count 61 X10*3/uL (160-400)
[2023-08-09] MEDS: Albumin Human 25 % 100 ML 50 ML IV (20:32)
[2023-08-10] VITALS (44 sets, daily range): BP systolic 81–130; BP diastolic 44–75; PULSE 52–103; RESP 12–22; TEMP 35–37.6; O2SAT 93–100; BMI 27.4
[2023-08-10] MEDS: Albumin Human 25 % 100 ML IV (03:33)
[2023-08-10] MEDS: propofoL 1,000 MG/100 ML VIAL 20.88 MG IVCONT ×2 (04:46)
[2023-08-10 05:37] LABS: Basophils Percent Auto 1.3 % (0-2); Eosinophils Absolute Auto 0.2 X10*3/uL (0.0-0.4); Hematocrit 24.9 % (42.0-52.0); Hemoglobin 8.4 g/dl (14.0-18.0); Lymphocytes Absolute Auto 0.7 X10*3/uL (1.2-4.9); Lymphocytes Percent Auto 30.3 % (20-40); MANUAL DIFF FLAG SCAN; Mean Corpuscular HGB Conc 33.7 g/dl (31.0-36.0); Mean Corpuscular Hemoglobin 31.5 pg (27.0-33.0); Mean Corpuscular Volume 93.3 fL (80.0-98.0); Mean Platelet Volume 10.2 fL (9.4-12.4); Monocytes Absolute Auto 0.2 X10*3/uL (0.1-1.2); Monocytes Percent Auto 6.6 % (2-11); Neutrophils Absolute Auto 1.3 x10*3/uL (2.0-8.3); Neutrophils Percent Auto 54.8 % (45-73); Red Blood Count 2.67 X10*6/uL (4.60-5.80); Red Cell Distribution Width 14.3 % (11.0-16.0); SCAN SMEAR FLAG 1
[2023-08-10 05:38] LABS: Platelet Count 49 X10*3/uL (160-400); White Blood Count 2.3 X10*3/uL (4.8-10.8)
[2023-08-10 05:39] LABS: VBG Base Excess 9.9 mmol/L; VBG HCO3 33 mmol/L (22-26); VBG pCO2 40 mmHg; VBG pH 7.52 (7.32-7.43); VBG pO2 52 mmHg
[2023-08-10 05:44] LABS: INTERNATIONAL NORM RATIO 1.5 (0.9-1.1); Prothrombin Time 18.7 SEC (11.1-13.3)
[2023-08-10 05:46] LABS: Ammonia 72 umol/L (13-55)
[2023-08-10 05:55] LABS: Alanine Aminotransferase 23 U/L (0-40); Alkaline Phosphatase 39 U/L (39-117); Anion Gap 13 (12-20); Aspartate Amino Transferase 37 U/L (5-37); Bilirubin Total 0.8 mg/dL (0.0-1.0); Blood Urea Nitrogen 16 mg/dL (9-16); Calcium 8.9 mg/dL (8.4-10.2); Carbon Dioxide 26 mmol/L (22-29); Chloride 113 mmol/L (96-108); Creatinine Clr Calc Pharmacy 87.2; Estimated Glomerular Filt Rate > 60; Glucose Random 139 mg/dL (60-115); Magnesium 1.8 mg/dL (1.6-2.6); Phosphorus 2.5 mg/dL (2.7-4.5); Potassium 3.1 mmol/L (3.3-5.1); Sodium 149 mmol/L (135-145); Total Protein 6.4 g/dL (6.5-8.0)
[2023-08-10 05:57] LABS: SLIDE REVIEW VERIFIED
[2023-08-10 06:30] LABS: Venous Blood Gas Refer to POC result
[2023-08-10] MEDS: Pantoprazole Sodium 40 MG/10 ML VIAL IVPUSH ×2 (07:13→16:42)
[2023-08-10] MEDS: Potassium Chloride/H20 40 MEQ/100 ML PIGGYBACK 100 MEQ IV (07:13)
[2023-08-10] MEDS: Thiamine HCL 100 MG in 0.9 % Sodium Chloride 100 ML 202 MG IV (07:57)
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
--- NOTE | 2023-08-10 10:11 | PC.NURSE ---
Sedation vacation begun at 0902. See MAR for medication administration records. RT switched the pt over to PSV at 0940. Pt alert and answering questions and following directions. Extubation occured at 1010 with RT at bedside. Oral suction provided in addition to mouth moisturizer. Pt on room air with o2 sat of 95.
--- NOTE | 2023-08-10 11:27 | PM.CCPN ---
Subjective Subjective Date of Service: 08/10/23 Interval History: 68-year-old gentleman with underlying polysubstance abuse now on methadone, longstanding cirrhosis with portal vein thrombosis with prior GI bleeds and TIPS procedure, on anticoagulation admitted on 08/08/2023 with hepatic encephalopathy and substance abuse further complicated by upper GI bleed requiring intubation for airway protection. Patient was started on octreotide and PPI. EGD on 08/09/2023 with no active bleeding, but at her clot at the site of prior variceal banding and also gastric ulcer noted. No rebleeding overnight. Extubated uneventfully this a.m.. Critical Care Time (minutes): 45 Physical Exam Vital Signs: Vital Signs: Last Vital Signs Temp 98.2 F 08/10/23 09:00 Pulse 63 08/10/23 11:00 Resp 18 08/10/23 11:00 BP 123/67 08/10/23 11:00 Pulse Ox 95 08/10/23 11:00 O2 Del Method Room Air 08/10/23 11:00 O2 Flow Rate 08/09/23 07:00 FiO2 08/10/23 09:00 BMI result Body Mass Index 27.4 Const: General: no acute distress, alert and awake Eyes: Sclerae: sclerae normal EOM: EOMs intact bilaterally Neck: Neck: Yes no lymphadenopathy, Yes trachea midline and Yes supple Resp: Effort & Inspection: normal respiratory effort and no respiratory distress Auscultation: clear to auscultation bilaterally Cardio: Rate: regular rate Rhythm: regular rhythm Heart sounds: no gallops, no murmurs and no rubs GI: Palpation (GI): Soft to palpation and Other GI palpation findings present ( Nontender) Auscultation: normal bowel sounds Extrem: General: Yes no pedal edema, No clubbing and No cyanosis Objective Data Labs 08/10/23 05:23 08/10/23 05:23 Labs: Laboratory Results - last 24 hr 08/09/23 08/10/23 08/10/23 17:41 05:23 05:23 WBC 3.1 L Cancelled 2.3 L RBC 2.86 L Cancelled Hgb 9.0 L Hct 26.4 L MCV 92.3 MCH 31.5 MCHC 34.1 RDW 14.2 Plt Count 61 L MPV 10.5 Immature Gran % (Auto) 0.6 H Neut % (Auto) 61.2 Lymph % (Auto) 25.2 [place] % (Auto) 8.1 Eos % (Auto) 3.9 Baso % (Auto) 1.0 Lymph # (Auto) 0.8 L [place] # (Auto) 0.3 Eos # (Auto) 0.1 Baso # (Auto) 0.0 Abs Immat Gran (auto) 0.02 Absolute Neuts (auto) 1.9 L Absolute Nucleated RBC 0.000 Nucleated RBC % (auto) 0.0 Smear Tech's Comments PT INR VBG pH VBG pCO2 VBG pO2 VBG HCO3 VBG O2 Saturation VBG Base Excess Sodium Potassium Chloride Carbon Dioxide Anion Gap BUN Creatinine Estim Creat Clear Calc Estimated GFR Random Glucose Calcium Phosphorus Magnesium Total Bilirubin AST ALT Alkaline Phosphatase Ammonia Total Protein Albumin 08/10/23 08/10/23 08/10/23 05:23 05:23 05:23 WBC RBC 2.67 L Hgb Cancelled 8.4 L Hct Cancelled 24.9 L MCV Cancelled MCH MCHC RDW Plt Count MPV Immature Gran % (Auto) Neut % (Auto) Lymph % (Auto) [place] % (Auto) Eos % (Auto) Baso % (Auto) Lymph # (Auto) [place] # (Auto) Eos # (Auto) Baso # (Auto) Abs Immat Gran (auto) Absolute Neuts (auto) Absolute Nucleated RBC Nucleated RBC % (auto) Smear Tech's Comments PT INR VBG pH VBG pCO2 VBG pO2 VBG HCO3 VBG O2 Saturation VBG Base Excess Sodium Potassium Chloride Carbon Dioxide Anion Gap BUN Creatinine Estim Creat Clear Calc Estimated GFR Random Glucose Calcium Phosphorus Magnesium Total Bilirubin AST ALT Alkaline Phosphatase Ammonia Total Protein Albumin 08/10/23 08/10/23 08/10/23 05:23 05:23 05:23 WBC RBC Hgb Hct MCV 93.3 MCH Cancelled 31.5 MCHC Cancelled 33.7 RDW Cancelled Plt Count MPV Immature Gran % (Auto) Neut % (Auto) Lymph % (Auto) [place] % (Auto) Eos % (Auto) Baso % (Auto) Lymph # (Auto) [place] # (Auto) Eos # (Auto) Baso # (Auto) Abs Immat Gran (auto) Absolute Neuts (auto) Absolute Nucleated RBC Nucleated RBC % (auto) Smear Tech's Comments PT INR VBG pH VBG pCO2 VBG pO2 VBG HCO3 VBG O2 Saturation VBG Base Excess Sodium Potassium Chloride Carbon Dioxide Anion Gap BUN Creatinine Estim Creat Clear Calc Estimated GFR Random Glucose Calcium Phosphorus Magnesium Total Bilirubin AST ALT Alkaline Phosphatase Ammonia Total Protein Albumin 08/10/23 08/10/23 08/10/23 05:23 05:23 05:23 WBC RBC Hgb Hct MCV MCH MCHC RDW 14.3 Plt Count Cancelled 49 L MPV Cancelled 10.2 Immature Gran % (Auto) Cancelled Neut % (Auto) Lymph % (Auto) [place] % (Auto) Eos % (Auto) Baso % (Auto) Lymph # (Auto) [place] # (Auto) Eos # (Auto) Baso # (Auto) Abs Immat Gran (auto) Absolute Neuts (auto) Absolute Nucleated RBC Nucleated RBC % (auto) Smear Tech's Comments PT INR VBG pH VBG pCO2 VBG pO2 VBG HCO3 VBG O2 Saturation VBG Base Excess Sodium Potassium Chloride Carbon Dioxide Anion Gap BUN Creatinine Estim Creat Clear Calc Estimated GFR Random Glucose Calcium Phosphorus Magnesium Total Bilirubin AST ALT Alkaline Phosphatase Ammonia Total Protein Albumin 08/10/23 08/10/23 08/10/23 05:23 05:23 05:23 WBC RBC Hgb Hct MCV MCH MCHC RDW Plt Count MPV Immature Gran % (Auto) 0.0 Neut % (Auto) Cancelled 54.8 Lymph % (Auto) Cancelled 30.3 [place] % (Auto) Cancelled Eos % (Auto) Baso % (Auto) Lymph # (Auto) [place] # (Auto) Eos # (Auto) Baso # (Auto) Abs Immat Gran (auto) Absolute Neuts (auto) Absolute Nucleated RBC Nucleated RBC % (auto) Smear Tech's Comments PT INR VBG pH VBG pCO2 VBG pO2 VBG HCO3 VBG O2 Saturation VBG Base Excess Sodium Potassium Chloride Carbon Dioxide Anion Gap BUN Creatinine Estim Creat Clear Calc Estimated GFR Random Glucose Calcium Phosphorus Magnesium Total Bilirubin AST ALT Alkaline Phosphatase Ammonia Total Protein Albumin 08/10/23 08/10/23 08/10/23 05:23 05:23 05:23 WBC RBC Hgb Hct MCV MCH MCHC RDW Plt Count MPV Immature Gran % (Auto) Neut % (Auto) Lymph % (Auto) [place] % (Auto) 6.6 Eos % (Auto) Cancelled 7.0 H Baso % (Auto) Cancelled 1.3 Lymph # (Auto) Cancelled [place] # (Auto) Eos # (Auto) Baso # (Auto) Abs Immat Gran (auto) Absolute Neuts (auto) Absolute Nucleated RBC Nucleated RBC % (auto) Smear Tech's Comments PT INR VBG pH VBG pCO2 VBG pO2 VBG HCO3 VBG O2 Saturation VBG Base Excess Sodium Potassium Chloride Carbon Dioxide Anion Gap BUN Creatinine Estim Creat Clear Calc Estimated GFR Random Glucose Calcium Phosphorus Magnesium Total Bilirubin AST ALT Alkaline Phosphatase Ammonia Total Protein Albumin 08/10/23 08/10/23 08/10/23 05:23 05:23 05:23 WBC RBC Hgb Hct MCV MCH MCHC RDW Plt Count MPV Immature Gran % (Auto) Neut % (Auto) Lymph % (Auto) [place] % (Auto) Eos % (Auto) Baso % (Auto) Lymph # (Auto) 0.7 L [place] # (Auto) Cancelled 0.2 Eos # (Auto) Cancelled 0.2 Baso # (Auto) Cancelled Abs Immat Gran (auto) Absolute Neuts (auto) Absolute Nucleated RBC Nucleated RBC % (auto) Smear Tech's Comments PT INR VBG pH VBG pCO2 VBG pO2 VBG HCO3 VBG O2 Saturation VBG Base Excess Sodium Potassium Chloride Carbon Dioxide Anion Gap BUN Creatinine Estim Creat Clear Calc Estimated GFR Random Glucose Calcium Phosphorus Magnesium Total Bilirubin AST ALT Alkaline Phosphatase Ammonia Total Protein Albumin 08/10/23 08/10/23 08/10/23 05:23 05:23 05:23 WBC RBC Hgb Hct MCV MCH MCHC RDW Plt Count MPV Immature Gran % (Auto) Neut % (Auto) Lymph % (Auto) [place] % (Auto) Eos % (Auto) Baso % (Auto) Lymph # (Auto) [place] # (Auto) Eos # (Auto) Baso # (Auto) 0.0 Abs Immat Gran (auto) Cancelled 0.00 Absolute Neuts (auto) Cancelled 1.3 L Absolute Nucleated RBC Cancelled Nucleated RBC % (auto) Smear Tech's Comments PT INR VBG pH VBG pCO2 VBG pO2 VBG HCO3 VBG O2 Saturation VBG Base Excess Sodium Potassium Chloride Carbon Dioxide Anion Gap BUN Creatinine Estim Creat Clear Calc Estimated GFR Random Glucose Calcium Phosphorus Magnesium Total Bilirubin AST ALT Alkaline Phosphatase Ammonia Total Protein Albumin 02/06/24 02/06/24 02/06/24 05:23 05:23 05:32 WBC RBC Hgb Hct MCV MCH MCHC RDW Plt Count MPV Immature Gran % (Auto) Neut % (Auto) Lymph % (Auto) [place] % (Auto) Eos % (Auto) Baso % (Auto) Lymph # (Auto) [place] # (Auto) Eos # (Auto) Baso # (Auto) Abs Immat Gran (auto) Absolute Neuts (auto) Absolute Nucleated RBC 0.000 Nucleated RBC % (auto) Cancelled 0.0 Smear Tech's Comments VERIFIED PT 18.7 H INR 1.5 H VBG pH 7.52 H VBG pCO2 40 VBG pO2 52 VBG HCO3 33 H VBG O2 Saturation 84.0 VBG Base Excess 9.9 Sodium 149 H Potassium 3.1 L D Chloride 113 H Carbon Dioxide 26 Anion Gap 13 BUN 16 Creatinine 0.90 Estim Creat Clear Calc 87.2 Estimated GFR > 60 Random Glucose 139 H Calcium 8.9 Phosphorus 2.5 L Magnesium 1.8 Total Bilirubin 0.8 AST 37 ALT 23 Alkaline Phosphatase 39 Ammonia 72 H Total Protein 6.4 L Albumin 4.0 Progress Note: A&P Assessment and plan (1) Acute respiratory failure: Status: Acute (2) S/P TIPS (transjugular intrahepatic portosystemic shunt): Status: Acute (3) Cirrhosis: Status: Acute (4) Upper GI bleed: Status: Acute (5) Portal vein thrombosis: Status: Acute (6) Polysubstance abuse: Status: Acute Plan Assessment: 68-year-old gentleman with underlying polysubstance abuse, cirrhosis with prior TIPS procedure admitted with hepatic encephalopathy and upper GI bleed Plan: Neuro: Hepatic encephalopathy, continue lactulose. Cardiac: No acute issues. Pulmonary: Intubated for airway protection with acute upper GI bleed. Extubated uneventfully this a.m.. Renal: No acute issues. Endo: No acute issues. GI: Cirrhosis status post prior TIPS with portal vein thrombosis, previously anticoagulated. Gastroenterology service care appreciated. Endoscopy with no active bleeding, but adherent clot at the site of variceal banding, also noted gastric ulcer. Continue octreotide and PPI. Continue lactulose. Started on sucralfate. ID: No acute issues. Heme/Onc: No acute issues. Psych: No acute issues. Miscellaneous: No acute issues. Prophylaxis: Pneumatic compression, PPI Diet: Full liquids Critical care time spent: 45 minutes Quality Stroke Does the patient have a stroke diagnosis?: No VTE Prior VTE?: No VTE Risk Level:: Medical - moderate - high VTE Device Contraindication: Treatment Not Indicated VTE Drug Contraindication: N/A - Med Ordered
[2023-08-10] MEDS: Midazolam HCl/PF 2 MG/2 ML VIAL IVPUSH (12:39)
[2023-08-10] MEDS: dexmedeTOMIDidine HCL/NS 400 MCG/100 ML INFUS..BTL 21.05 MCG IVCONT (13:08)
--- NOTE | 2023-08-10 14:27 | HO.POSTANES ---
Post Anesthesia Evaluation Post Anesthesia Evaluation Date of Service: 08/10/23 Vital Signs: Vital Signs Temp Pulse Resp BP Pulse Ox O2 Del Method FiO2 08/10/23 14:22 57 14 105/57 L 95 Room Air 08/10/23 14:17 105/57 L 08/10/23 13:59 52 83/46 L 08/10/23 13:48 67 15 88/48 L 94 Room Air 08/10/23 13:44 67 81/44 L 08/10/23 13:00 103 H 17 93 Room Air 08/10/23 12:40 99 120/64 08/10/23 12:11 97 125/71 08/10/23 12:08 97 Room Air 08/10/23 12:00 86 12 93/58 L 97 Room Air 08/10/23 11:00 63 18 123/67 95 Room Air 08/10/23 10:51 65 130/71 08/10/23 10:00 73 120/74 97 Room Air 08/10/23 09:00 98.2 F 73 13 114/69 98 Mechanical Ventilation 08/10/23 08:00 98.1 F 63 15 102/62 98 Mechanical Ventilation 24 08/10/23 07:38 24 08/10/23 07:27 65 95/54 L 08/10/23 07:24 24 08/10/23 07:00 97.9 F 65 12 90/54 L 96 Mechanical Ventilation 08/10/23 06:41 67 83/51 L 08/10/23 06:20 72 89/50 L 08/10/23 06:00 98.1 F 72 13 119/63 96 Mechanical Ventilation 08/10/23 05:30 71 109/65 08/10/23 05:00 99.1 F 75 15 112/68 95 Mechanical Ventilation 24 08/10/23 04:44 24 08/10/23 04:00 99.1 F 77 14 122/69 95 Mechanical Ventilation 08/10/23 03:46 80 111/72 08/10/23 03:41 24 08/10/23 03:00 99.1 F 83 15 125/72 97 Mechanical Ventilation 24 Anesthesia: General Endotracheal-GETA Mental Status: Awake Pain Control: Satisfactory Nausea/Vomiting: None Hydration: Adequate Anesthesia-Related Issues: No Anes. Related Issues Comments: Patient extubated this morning
[2023-08-10] MEDS: cefTRIAXone sodium 1 GM in 0.9 % Sodium Chloride 50 ML IV (15:18)
[2023-08-10] MEDS: Sucralfate Oral Suspension 1 GM/10 ML ORAL.SUSP PO ×2 (16:42→19:53)
[2023-08-10] MEDS: Norepinephrine Bitartrate/D5W 8 MG/250 ML PLAST..BAG 9.84 MG IV (18:34)
[2023-08-11] VITALS (27 sets, daily range): BP systolic 86–134; BP diastolic 44–73; PULSE 50–76; RESP 11–20; TEMP 36.5–37.1; O2SAT 93–99; BMI 27.4
[2023-08-11] MEDS: Pantoprazole Sodium 40 MG/10 ML VIAL IVPUSH ×2 (04:47→16:46)
[2023-08-11 05:27] LABS: Hematocrit 27.1 % (42.0-52.0); Imm Gran Abs Auto 0.02 X10*3/uL (0.00-0.03); Imm Gran Pct Auto 0.5 % (0.0-0.4); MANUAL DIFF FLAG SCAN; Mean Corpuscular Hemoglobin 30.8 pg (27.0-33.0); PLT CLUMP 1; Red Cell Distribution Width 13.9 % (11.0-16.0); SCAN SMEAR FLAG 1
[2023-08-11 05:29] LABS: Basophils Absolute Auto 0.1 X10*3/uL (0.0-0.2); Basophils Percent Auto 1.3 % (0-2); Eosinophils Absolute Auto 0.4 X10*3/uL (0.0-0.4); Eosinophils Percent Auto 10.4 % (0-4); Lymphocytes Absolute Auto 1.2 X10*3/uL (1.2-4.9); Lymphocytes Percent Auto 30.6 % (20-40); Mean Corpuscular HGB Conc 33.2 g/dl (31.0-36.0); Mean Corpuscular Volume 92.8 fL (80.0-98.0); Mean Platelet Volume 10.3 fL (9.4-12.4); Monocytes Absolute Auto 0.2 X10*3/uL (0.1-1.2); Monocytes Percent Auto 6.1 % (2-11); Neutrophils Percent Auto 51.1 % (45-73); Red Blood Count 2.92 X10*6/uL (4.60-5.80)
[2023-08-11 05:32] LABS: Platelet Count 72 X10*3/uL (160-400)
[2023-08-11 05:33] LABS: SLIDE REVIEW VERIFIED
[2023-08-11 05:39] LABS: INTERNATIONAL NORM RATIO 1.6 (0.9-1.1); Prothrombin Time 19.1 SEC (11.1-13.3)
[2023-08-11 05:48] LABS: Albumin Level 3.5 g/dL (3.5-5.0); Anion Gap 10 (12-20); Blood Urea Nitrogen 9 mg/dL (9-16); Calcium 8.7 mg/dL (8.4-10.2); Carbon Dioxide 26 mmol/L (22-29); Chloride 105 mmol/L (96-108); Creatinine Clr Calc Pharmacy 85.3; Estimated Glomerular Filt Rate > 60; Glucose Random 135 mg/dL (60-115); Magnesium 1.6 mg/dL (1.6-2.6); Phosphorus 2.8 mg/dL (2.7-4.5); Sodium 138 mmol/L (135-145)
[2023-08-11] MEDS: Potassium Chloride/H20 40 MEQ/100 ML PIGGYBACK 50 MEQ IV (06:18)
[2023-08-11] MEDS: Sucralfate Oral Suspension 1 GM/10 ML ORAL.SUSP PO ×4 (07:59→21:14)
[2023-08-11] MEDS: Thiamine HCL 100 MG in 0.9 % Sodium Chloride 100 ML 202 MG IV (07:59)
--- NOTE | 2023-08-11 10:06 | MHC.CLN ---
F/U PT EXTUBATED / DIET ADVANCED TO F/L PO INTAKE 25-50% RECOMMEND ADDING ENSURE TID TO INCREASE KCALS SUPP TO PROVIDE [id number], 60G PROTEIN MONITOR PO INTAKE CLOSELY RD TO FOLLOW WEEKLY
[2023-08-11] MEDS: Albumin Human 25 % 100 ML IV ×3 (10:16→21:13)
[2023-08-11] MEDS: Potassium Chloride/H20 40 MEQ/100 ML PIGGYBACK 100 MEQ IV (10:26)
[2023-08-11] MEDS: Magnesium Sulfate/H2O 2 GM/50 ML PIGGYBACK IV (10:29)
[2023-08-11] MEDS: Lactulose 20 GM/30 ML SOLUTION 30 GM PO ×3 (10:43→21:14)
[2023-08-11] MEDS: Lactated Ringers 1,000 ML 999 ML IV ×2 (10:46→12:26)
--- NOTE | 2023-08-11 11:35 | P.PNCC_ITS ---
Subjective Subjective Date of Service: 08/11/23 Interval History: 68-year-old gentleman with underlying polysubstance abuse now on methadone, longstanding cirrhosis with portal vein thrombosis with prior GI bleeds and TIPS procedure, on anticoagulation admitted on 08/08/2023 with hepatic encephalopathy and substance abuse further complicated by upper GI bleed requiring intubation for airway protection. Patient was started on octreotide and PPI. EGD on 08/09/2023 with no active bleeding, but at her clot at the site of prior variceal banding and also gastric ulcer noted. Extubated 08/10/2023. Passed bedside swallow evaluation. No rebleeding overnight. Critical Care Time (minutes): 45 Physical Exam 2 Vital Signs: Vital Signs: Last Vital Signs Temp 97.8 F 08/11/23 08:00 Pulse 60 08/11/23 11:00 Resp 14 08/11/23 11:00 BP 95/54 L 08/11/23 11:00 Pulse Ox 99 08/11/23 11:00 O2 Del Method Room Air 08/11/23 11:00 O2 Flow Rate 08/09/23 07:00 FiO2 08/10/23 09:00 BMI result Body Mass Index 27.4 Const: General: no acute distress, alert and awake Eyes: Sclerae: sclerae normal EOM: EOMs intact bilaterally Neck: Neck: Yes no lymphadenopathy, Yes trachea midline and Yes supple Resp: Effort & Inspection: normal respiratory effort and no respiratory distress Auscultation: clear to auscultation bilaterally Cardio: Rate: regular rate Rhythm: regular rhythm Heart sounds: no gallops, no murmurs and no rubs GI: Palpation (GI): Soft to palpation and Other GI palpation findings present ( Nontender) Auscultation: normal bowel sounds Extrem: General: Yes no pedal edema, No clubbing and No cyanosis Objective Data Labs 08/11/23 04:31 08/11/23 04:31 Labs: Laboratory Results - last 24 hr 08/11/23 04:31 WBC 4.0 L RBC 2.92 L Hgb 9.0 L Hct 27.1 L MCV 92.8 MCH 30.8 MCHC 33.2 RDW 13.9 Plt Count 72 L D MPV 10.3 Immature Gran % (Auto) 0.5 H Neut % (Auto) 51.1 Lymph % (Auto) 30.6 [place] % (Auto) 6.1 Eos % (Auto) 10.4 H Baso % (Auto) 1.3 Lymph # (Auto) 1.2 [place] # (Auto) 0.2 Eos # (Auto) 0.4 Baso # (Auto) 0.1 Abs Immat Gran (auto) 0.02 Absolute Neuts (auto) 2.0 Absolute Nucleated RBC 0.000 Nucleated RBC % (auto) 0.0 Smear Tech's Comments VERIFIED PT 19.1 H INR 1.6 H Sodium 138 Potassium 3.0 L Chloride 105 Carbon Dioxide 26 Anion Gap 10 L BUN 9 Creatinine 0.84 Estim Creat Clear Calc 85.3 Estimated GFR > 60 Random Glucose 135 H Calcium 8.7 Phosphorus 2.8 Magnesium 1.6 Albumin 3.5 Progress Note: A&P Assessment and plan (1) S/P TIPS (transjugular intrahepatic portosystemic shunt): Status: Acute (2) Cirrhosis: Status: Acute (3) Upper GI bleed: Status: Acute (4) Portal vein thrombosis: Status: Acute (5) Polysubstance abuse: Status: Acute (6) Acute hepatic encephalopathy: Status: Acute Plan Assessment: 68-year-old gentleman with underlying polysubstance abuse, cirrhosis with prior TIPS procedure admitted with hepatic encephalopathy and upper GI bleed Plan: Neuro: Hepatic encephalopathy, resolved. Continue lactulose. Cardiac: Pressor requirements improving off sedation, continue to titrate off as tolerated. Pulmonary: Intubated for airway protection with acute upper GI bleed. Extubated 08/10/2023. Renal: No acute issues. Endo: No acute issues. GI: Cirrhosis status post prior TIPS with portal vein thrombosis, previously anticoagulated. Gastroenterology service care appreciated. Endoscopy with no active bleeding, but adherent clot at the site of variceal banding, also noted gastric ulcer. Continue octreotide and PPI. Continue lactulose. Continue on sucralfate. ID: No acute issues. Heme/Onc: No acute issues. Psych: No acute issues. Miscellaneous: No acute issues. Prophylaxis: Pneumatic compression, PPI Diet: Full liquids Critical care time spent: 45 minutes Quality Stroke Does the patient have a stroke diagnosis?: No VTE Prior VTE?: No VTE Risk Level:: Medical - moderate - high VTE Device Contraindication: Treatment Not Indicated VTE Drug Contraindication: N/A - Med Ordered
[2023-08-11] MEDS: cefTRIAXone sodium 1 GM in 0.9 % Sodium Chloride 50 ML IV (14:54)
--- NOTE | 2023-08-11 15:40 | MHC.CM.PN ---
PT REMAINS IN ICU. ALERT X 3 AND ABLE TO COMPLETE A HCP WITH THIS CM. PER RECORD REVIEW, PT WAS ACTIVE WITH [facility] FOR BID LOVENOX INJECTIONS. [facility] CONTINUES TO FOLLOW, UPDATED VIA LRN. CM WILL CONTINUE TO FOLLOW FOR ANY CHANGE IN DC PLAN/NEEDS.
[2023-08-11] MEDS: methADONE HCl 20 MG/2 ML ORAL.CONC 30 MG PO (16:46)
--- NOTE | 2023-08-12 01:02 | P.EN_ITS ---
Event Note Date of Service: 08/12/23 Event Note: Pt is a 68-year-old male with a PMH significant for hypertension, hepatic cirrhosis complicated by pencytopenia and portal vein thrombosis anticoagulated with Lovenox, polysubstance use, GERD who initially presented to the ED at the recommendation of [facility] due to altered mental status. Was found to have elevated ammonia secondary to hepatic cirrhosis and was admitted to the hospital for treatment of hepatic encephalopathy. A few hours after admission pt had an ep isode of claudio hemoptysis with large clots and transferred to ICU for intubation to protect airway. Was started on octreotide and PPI. EGD on 08/09/2023 with no active bleeding, but showed adherent clot at site of prior variceal banding, as well as gastric ulcer. Extubated 08/10/2023. Pt seen and evaluated at bedside where he is resting comfortably in no acute distress. Pt is alert and oriented x4, and has no acute medical complaints. Says he feels excellent . Physical exam benign. Please see critical care note for plan details. Continue PPI, octreotide, lactulose, sucralfate. Time Spent With Patient Time: Total time managing care of this patient today ____ minutes.
[2023-08-12] MEDS: Albumin Human 25 % 100 ML IV (02:38)
[2023-08-12 03:53] VITALS: BP 124/68; PULSE 67; RESP 18; TEMP 37.4; O2SAT 98
[2023-08-12 06:00] VITALS: BMI 27.4
[2023-08-12] MEDS: Pantoprazole Sodium 40 MG/10 ML VIAL IVPUSH (06:16)
[2023-08-12 07:41] VITALS: BP 100/57; PULSE 69; RESP 20; TEMP 36.6; O2SAT 96
[2023-08-12 07:49] LABS: Basophils Percent Auto 1.3 % (0-2); Eosinophils Absolute Auto 0.2 X10*3/uL (0.0-0.4); Eosinophils Percent Auto 9.8 % (0-4); Hematocrit 25.6 % (42.0-52.0); Hemoglobin 8.7 g/dl (14.0-18.0); Lymphocytes Absolute Auto 0.4 X10*3/uL (1.2-4.9); Lymphocytes Percent Auto 28.1 % (20-40); MANUAL DIFF FLAG SCAN; Mean Corpuscular Hemoglobin 32.2 pg (27.0-33.0); Mean Corpuscular Volume 94.8 fL (80.0-98.0); Mean Platelet Volume 10.6 fL (9.4-12.4); Monocytes Absolute Auto 0.1 X10*3/uL (0.1-1.2); Monocytes Percent Auto 7.2 % (2-11); Neutrophils Absolute Auto 0.8 x10*3/uL (2.0-8.3); Neutrophils Percent Auto 53.6 % (45-73); Platelet Count 49 X10*3/uL (160-400); Red Cell Distribution Width 14.1 % (11.0-16.0); SCAN SMEAR FLAG 1; White Blood Count 1.5 X10*3/uL (4.8-10.8)
[2023-08-12 07:51] LABS: Venous Blood Gas Refer to POC result
[2023-08-12 07:51] LABS: VBG Base Excess 3.4 mmol/L; VBG HCO3 25 mmol/L (22-26); VBG pCO2 31 mmHg; VBG pH 7.52 (7.32-7.43); VBG pO2 90 mmHg
[2023-08-12 07:53] LABS: INTERNATIONAL NORM RATIO 1.8 (0.9-1.1); Prothrombin Time 21.7 SEC (11.1-13.3)
[2023-08-12 08:03] LABS: Anion Gap 11 (12-20); Blood Urea Nitrogen 5 mg/dL (9-16); Calcium 8.7 mg/dL (8.4-10.2); Carbon Dioxide 26 mmol/L (22-29); Chloride 108 mmol/L (96-108); Creatinine Clr Calc Pharmacy 100.9; Estimated Glomerular Filt Rate > 60; Glucose Random 122 mg/dL (60-115); Magnesium 1.6 mg/dL (1.6-2.6); Phosphorus 2.4 mg/dL (2.7-4.5); Potassium 3.6 mmol/L (3.3-5.1); Sodium 141 mmol/L (135-145)
[2023-08-12] MEDS: methADONE HCl 20 MG/2 ML ORAL.CONC 30 MG PO (08:19)
[2023-08-12] MEDS: Thiamine HCL 100 MG in 0.9 % Sodium Chloride 100 ML 202 MG IV (08:19)
[2023-08-12] MEDS: Lactulose 20 GM/30 ML SOLUTION 30 GM PO ×3 (08:20→20:25)
[2023-08-12 08:26] LABS: SLIDE REVIEW VERIFIED
[2023-08-12] MEDS: Sucralfate Oral Suspension 1 GM/10 ML ORAL.SUSP PO ×4 (08:28→20:25)
[2023-08-12 12:00] VITALS: BP 123/69; PULSE 78; RESP 20; TEMP 37.1; O2SAT 97
[2023-08-12 13:00] VITALS: O2SAT 97
--- NOTE | 2023-08-12 15:08 | MHC.RECOVRN ---
Met with pt in 459 after consult placed to Addiction Medicine. Pt had presented to the hospital after being found by [facility] and pt not being at his baseline, pt not responding appropriately. Pt subsequently admitted to ICU and intubated, now downgraded to med-tele, for acute hepatic encephalopathy and polysubstance use. Pt currently on methadone through [facility], receives take home bottles, 50 mg daily. Pt reports he has been taking methadone for years and years. Pt last in the [facility] on 08/06/23 and received take homes for 08/07-08/12. Pt presented to the hospital on 08/08 and restarted on methadone on 08/11, 30 mg. Pt sitting in chair, awake, alert, easily engages in conversation. Appears comfortable. Denies current withdrawal symptoms, denies cravings. Pt reports first substance use in 1968. Currently uses heroin/fentanyl, 2 bundles daily, [place]. Does report hx IV use. Pt reports desire to abstain from substances, particularly due to wanting to be there for his family. Pt grateful for being in the hospital and time away from substances. Educated pt on available recovery supports and services, declines referrals at this time. Pt denies other questions or concerns for t/w. Discussed with provider, plan to increase to 40 mg methadone on 08/13.
[2023-08-12] MEDS: cefTRIAXone sodium 1 GM in 0.9 % Sodium Chloride 50 ML IV (15:32)
[2023-08-12] MEDS: Omeprazole 40 MG CAPSULE.DR PO (15:33)
[2023-08-12 15:48] VITALS: BP 100/59; PULSE 66; RESP 20; TEMP 36.7; O2SAT 98
--- NOTE | 2023-08-12 16:08 | MHC.CM.PN ---
EMR reviewed and per MD rounds, pt is not medically cleared for D/C at this time. CM will continue to follow.
--- NOTE | 2023-08-12 16:28 | P.PNIM_ITS ---
Subjective Subjective Date of Service: 08/12/23 Interval History: Being followed for hepatic encephalopathy, hematemesis now on IV octreotide drip. Patient denies recurrent symptoms of hematemesis, no nausea, no vomiting on full liquid diet, denies melena, no shortness of breath no fevers no chills no other acute issues. Review of Systems All other system reviewed and negative. Physical Exam 2 Vital Signs: Vital Signs: Last Vital Signs Temp 98.0 F 08/12/23 15:48 Pulse 66 08/12/23 15:48 Resp 20 08/12/23 15:48 BP 100/59 L 08/12/23 15:48 Pulse Ox 98 08/12/23 15:48 O2 Del Method Room Air 08/12/23 15:48 O2 Flow Rate 08/09/23 07:00 FiO2 08/10/23 09:00 BMI result Body Mass Index 27.4 Const: Other: General resting comfortably in no acute distress. Neck supple no JVD. CVS regular rate rhythm, Respiratory lungs clear to auscultation, no respiratory distress, no wheeze, no rhonchi. Gastrointestinal abdomen soft, non tender, bowel sounds audible, no guarding , no rigidity. Extremities no edema, dry scaly skin. Neuro nonfocal Skin no rash Psych appropriate affect Objective Data Active Medications Hydromorphone HCl (Hydromorphone Hcl 0.5 Mg/0.5 Ml Syringe) 0.5 mg IVPUSH Q4H PRN; Protocol PRN Reason: Pain, Moderate(Pain Scale 4-6) Last Admin: 08/08/23 18:18 Dose: 0.5 mg Documented By: TUAN Ceftriaxone Sodium 1 gm/ (Sodium Chloride) 50 mls @ 100 mls/hr IV Q24H [facility] Last Infusion: 08/12/23 16:26 Dose: Infused Documented By: APRYL Thiamine HCl 100 mg/ Sodium (Chloride) 101 mls @ 202 mls/hr IV DAILY [facility] Last Infusion: 08/12/23 09:20 Dose: Infused Documented By: SHANON Lactulose (Lactulose 20 Gm/30 Ml Solution) 30 gm PO TID [facility] Last Admin: 08/12/23 15:32 Dose: 30 gm Documented By: SHANON Methadone HCl (Methadone Hcl 20 Mg/2 Ml Oral.Conc) 30 mg PO DAILY [facility] Last Admin: 08/12/23 08:19 Dose: 30 mg Documented By: SHANON Omeprazole (Omeprazole 40 Mg Capsule.Dr) 40 mg PO BID@0630,1630 [facility] Last Admin: 08/12/23 15:33 Dose: 40 mg Documented By: SHANON Ondansetron HCl (Ondansetron Hcl 4 Mg/2 Ml Vial) 4 mg IVPUSH Q8H PRN PRN Reason: Nausea and Vomiting Sucralfate (Sucralfate Oral Suspension 1 Gm/10 Ml Oral.Susp) 1 gm PO QIDACHS [facility] Last Admin: 08/12/23 15:33 Dose: 1 gm Documented By: SHANON Labs 08/12/23 07:40 08/12/23 07:40 Labs: Laboratory Results - last 24 hr 08/12/23 08/12/23 07:40 07:45 MCV 94.8 MCH 32.2 MCHC 34.0 RDW 14.1 Plt Count 49 L D MPV 10.6 Immature Gran % (Auto) 0.0 Neut % (Auto) 53.6 Lymph % (Auto) 28.1 [place] % (Auto) 7.2 Eos % (Auto) 9.8 H Baso % (Auto) 1.3 Lymph # (Auto) 0.4 L [place] # (Auto) 0.1 Eos # (Auto) 0.2 Baso # (Auto) 0.0 Abs Immat Gran (auto) 0.00 Absolute Neuts (auto) 0.8 L Absolute Nucleated RBC 0.000 Nucleated RBC % (auto) 0.0 Smear Tech's Comments VERIFIED PT 21.7 H INR 1.8 H VBG pH 7.52 H VBG pCO2 31 VBG pO2 90 VBG HCO3 25 VBG O2 Saturation 100.0 VBG Base Excess 3.4 Anion Gap 11 L Estim Creat Clear Calc 100.9 Estimated GFR > 60 Random Glucose 122 H Calcium 8.7 Phosphorus 2.4 L Magnesium 1.6 Albumin 4.0 Assessment and Plan (1) Upper GI bleed: Status: Acute (2) Portal vein thrombosis: Status: Acute (3) Polysubstance abuse: Status: Acute Plan 68-year-old male with history of hypertension, hepatic cirrhosis complicated by pancytopenia and portal vein thrombosis anticoagulated with Lovenox, polysubstance use, GERD admitted for management of hepatic encephalopathy, in ER had an episode of claudio hematemesis with large clots, right femoral line was placed, patient was transferred to ICU for airway protection and intubation. #Acute toxic metabolic encephalopathy due to hepatic encephalopathy Resolved patient awake alert CT head negative for acute intracranial abnormality, continue lactulose 30 g t.i.d. # Acute upper GI bleed. Status post 1 unit of blood hematocrit low but stable close to baseline Underwent upper endoscopy by Dr. Valadez noted to have large 2 cm post banding ulcer with adherent clot at 35 cm, another post pending ulcer with visible vessel at 37 cm hemo spray was applied to post banding ulcers, stomach showed diffuse congestion and erythema consistent with portal hypertensive gastropathy, small 5 mm healing ulcer was noted in the distal body, duodenum showed normal mucosa. She recommend Carafate 1 g q.i.d. for 14 days, Protonix 40 mg b.i.d. for 1 month, she recommend to hold Lovenox till undergo repeat EGD in 2-3 weeks to document healing of post banding ulcers as well as variceal obliteration before resuming Lovenox, no NSAIDs, no smoking and no alcohol. Will DC IV octreotide place on regular diet, follow CBC #Decompensated hepatic cirrhosis- complicated by portal/mesenteric vein thrombosis, pancytopenia, coagulopathy -persistent pancytopenia and coagulopathy -lactulose as above -diuretics on hold due to soft blood pressures -Lovenox discontinued due to hematemesis #HTN -soft blood pressures status post pressors, lasix and spironolactone on hold. Will resume Lasix upon discharge if BP allows. #Polysubstance use -utox positive for fentanyl, heroin, on methadone being followed by Addiction Team will increase dose of methadone to 40 mg as per their recommendation. #GERD -continue ppi DVt prophylaxis- compression stockings full code Disposition home in 24 hours if remained hemodynamically stable pt requires continued inpatient treatment to advance diet and to monitor for recurrent GI bleed. Quality Stroke Does the patient have a stroke diagnosis?: No VTE Prior VTE?: No VTE Risk Level:: Medical - moderate - high VTE Device Contraindication: Treatment Not Indicated VTE Drug Contraindication: N/A - Med Ordered
[2023-08-12 20:00] VITALS: BP 109/66; PULSE 80; RESP 20; TEMP 37.4; O2SAT 100
[2023-08-13] VITALS (9 sets, daily range): BP systolic 91–122; BP diastolic 50–70; PULSE 66–89; RESP 18–20; TEMP 36.1–36.9; O2SAT 95–99; BMI 28.6
[2023-08-13] MEDS: Thiamine HCL 100 MG in 0.9 % Sodium Chloride 100 ML 202 MG IV (08:04)
[2023-08-13] MEDS: Sucralfate Oral Suspension 1 GM/10 ML ORAL.SUSP PO ×4 (08:05→20:01)
[2023-08-13] MEDS: Lactulose 20 GM/30 ML SOLUTION 30 GM PO ×3 (08:05→20:01)
[2023-08-13] MEDS: methADONE HCl 20 MG/2 ML ORAL.CONC 40 MG PO (08:06)
[2023-08-13 08:41] LABS: Basophils Percent Auto 1.8 % (0-2); Eosinophils Absolute Auto 0.2 X10*3/uL (0.0-0.4); Eosinophils Percent Auto 8.7 % (0-4); Hemoglobin 9.5 g/dl (14.0-18.0); Imm Gran Abs Auto 0.02 X10*3/uL (0.00-0.03); Imm Gran Pct Auto 0.9 % (0.0-0.4); Lymphocytes Absolute Auto 0.6 X10*3/uL (1.2-4.9); Lymphocytes Percent Auto 26.5 % (20-40); Mean Corpuscular HGB Conc 33.9 g/dl (31.0-36.0); Mean Corpuscular Hemoglobin 31.9 pg (27.0-33.0); Mean Platelet Volume 10.4 fL (9.4-12.4); Monocytes Absolute Auto 0.2 X10*3/uL (0.1-1.2); Monocytes Percent Auto 8.2 % (2-11); Neutrophils Absolute Auto 1.2 x10*3/uL (2.0-8.3); Neutrophils Percent Auto 53.9 % (45-73); Platelet Count 54 X10*3/uL (160-400); Red Blood Count 2.98 X10*6/uL (4.60-5.80); Red Cell Distribution Width 14.4 % (11.0-16.0); White Blood Count 2.2 X10*3/uL (4.8-10.8)
[2023-08-13 09:05] LABS: Anion Gap 10 (12-20); Blood Urea Nitrogen 7 mg/dL (9-16); Carbon Dioxide 25 mmol/L (22-29); Chloride 107 mmol/L (96-108); Creatinine Clr Calc Pharmacy 92.5; Estimated Glomerular Filt Rate > 60; Glucose Random 114 mg/dL (60-115); Potassium 3.7 mmol/L (3.3-5.1); Sodium 138 mmol/L (135-145)
--- NOTE | 2023-08-13 11:29 | MHC.CM.PN ---
Patient is not yet medically cleared for dc (pending labs); returning to the care home vs STR is the plan and CM will continue to follow. [facility] is following Patient and the only anticipated option in this area for Patient r/t his Methadone. CM will follow.
--- NOTE | 2023-08-13 12:04 | HO.PM.IMPN ---
Subjective Subjective Date of Service: 08/13/23 Interval History: seen and examined this morning follow up for GI bleeding, encephalopathy awake, alert. no overnight events, no specific complaints Review of Systems Review of Systems: Yes all other systems are reviewed and are negative Constitutional Constitutional: Denies chills and Denies fever(s) Cardiovascular Cardiovascular: Denies chest pain Physical Exam Vital Signs: Vital Signs: Last Vital Signs Temp 98.5 F 08/13/23 11:47 Pulse 89 08/13/23 11:47 Resp 20 08/13/23 11:47 BP 106/57 L 08/13/23 11:47 Pulse Ox 97 08/13/23 11:47 O2 Del Method Room Air 08/13/23 11:47 O2 Flow Rate 08/09/23 07:00 FiO2 08/10/23 09:00 BMI result Body Mass Index 28.6 Const: General: cooperative, comfortable, no acute distress, alert and awake Nutritional Appearance: average body habitus Orientation/consciousness: patient oriented x3 Resp: Effort & Inspection: normal respiratory effort, able to speak in complete sentences, no respiratory distress and no use of accessory muscles Cardio: Rate: regular rate GI: Inspection: No distended Palpation (GI): Soft to palpation and nontender Neuro: Other: grossly nonfocal General: patient oriented x3 and moves all extremities Extrem: General: Yes no pedal edema Objective Data Active Medications Hydromorphone HCl (Hydromorphone Hcl 0.5 Mg/0.5 Ml Syringe) 0.5 mg IVPUSH Q4H PRN; Protocol PRN Reason: Pain, Moderate(Pain Scale 4-6) Last Admin: 08/08/23 18:18 Dose: 0.5 mg Documented By: TUAN Ceftriaxone Sodium 1 gm/ (Sodium Chloride) 50 mls @ 100 mls/hr IV Q24H [facility] Last Infusion: 08/12/23 16:26 Dose: Infused Documented By: APRYL Thiamine HCl 100 mg/ Sodium (Chloride) 101 mls @ 202 mls/hr IV DAILY [facility] Last Infusion: 08/13/23 08:46 Dose: Infused Documented By: DAVID Lactulose (Lactulose 20 Gm/30 Ml Solution) 30 gm PO TID [facility] Last Admin: 08/13/23 08:05 Dose: 30 gm Documented By: DAVID Methadone HCl (Methadone Hcl 20 Mg/2 Ml Oral.Conc) 40 mg PO DAILY [facility] Last Admin: 08/13/23 08:06 Dose: 40 mg Documented By: DAVID Omeprazole (Omeprazole 40 Mg Capsule.Dr) 40 mg PO BID@0630,7630 [facility] Last Admin: 08/13/23 05:28 Dose: Not Given Documented By: FLORINA Non-Admin Reason: Patient Refused Ondansetron HCl (Ondansetron Hcl 4 Mg/2 Ml Vial) 4 mg IVPUSH Q8H PRN PRN Reason: Nausea and Vomiting Sucralfate (Sucralfate Oral Suspension 1 Gm/10 Ml Oral.Susp) 1 gm PO QIDACHS [facility] Last Admin: 08/13/23 11:42 Dose: 1 gm Documented By: DAVID Labs 08/13/23 08:33 08/13/23 08:33 Labs: Laboratory Results - last 24 hr 08/12/23 08/13/23 08/13/23 07:40 08:33 08:33 MCV 94.0 Cancelled MCH 31.9 MCHC RDW Plt Count MPV Immature Gran % (Auto) Neut % (Auto) Lymph % (Auto) [place] % (Auto) Eos % (Auto) Baso % (Auto) Lymph # (Auto) [place] # (Auto) Eos # (Auto) Baso # (Auto) Abs Immat Gran (auto) Absolute Neuts (auto) Absolute Nucleated RBC Nucleated RBC % (auto) Smear Path Review SEE NOTE Anion Gap Estim Creat Clear Calc Estimated GFR Random Glucose Calcium 08/13/23 08/13/23 08/13/23 08:33 08:33 08:33 MCV MCH Cancelled MCHC 33.9 Cancelled RDW 14.4 Cancelled Plt Count 54 L MPV Immature Gran % (Auto) Neut % (Auto) Lymph % (Auto) [place] % (Auto) Eos % (Auto) Baso % (Auto) Lymph # (Auto) [place] # (Auto) Eos # (Auto) Baso # (Auto) Abs Immat Gran (auto) Absolute Neuts (auto) Absolute Nucleated RBC Nucleated RBC % (auto) Smear Path Review Anion Gap Estim Creat Clear Calc Estimated GFR Random Glucose Calcium 08/13/23 08/13/23 08/13/23 08:33 08:33 08:33 MCV MCH MCHC RDW Plt Count Cancelled MPV 10.4 Cancelled Immature Gran % (Auto) 0.9 H Neut % (Auto) 53.9 Lymph % (Auto) 26.5 [place] % (Auto) 8.2 Eos % (Auto) 8.7 H Baso % (Auto) 1.8 Lymph # (Auto) 0.6 L [place] # (Auto) 0.2 Eos # (Auto) 0.2 Baso # (Auto) 0.0 Abs Immat Gran (auto) 0.02 Absolute Neuts (auto) 1.2 L Absolute Nucleated RBC 0.000 Cancelled Nucleated RBC % (auto) 0.0 Smear Path Review Anion Gap Estim Creat Clear Calc Estimated GFR Random Glucose Calcium 08/13/23 08:33 MCV MCH MCHC RDW Plt Count MPV Immature Gran % (Auto) Neut % (Auto) Lymph % (Auto) [place] % (Auto) Eos % (Auto) Baso % (Auto) Lymph # (Auto) [place] # (Auto) Eos # (Auto) Baso # (Auto) Abs Immat Gran (auto) Absolute Neuts (auto) Absolute Nucleated RBC Nucleated RBC % (auto) Cancelled Smear Path Review Anion Gap 10 L Estim Creat Clear Calc 92.5 Estimated GFR > 60 Random Glucose 114 Calcium 9.0 Assessment and Plan (1) Portal vein thrombosis: Status: Acute (2) Upper GI bleed: Status: Acute Plan This is a 68-year-old male with history of hypertension, hepatic cirrhosis complicated by pancytopenia and portal vein thrombosis anticoagulated with Lovenox, polysubstance use, GERD admitted for management of hepatic encephalopathy, in ER had an episode of claudio hematemesis with large clots, right femoral line was placed and patient was transferred to ICU for airway protection and intubation. #Acute toxic metabolic encephalopathy due to hepatic encephalopathy Resolved patient awake alert CT head negative for acute intracranial abnormality continue lactulose 30 g t.i.d. # Acute upper GI bleed. Status post 1 unit of blood hematocrit low but stable close to baseline Underwent upper endoscopy by Dr. Valadez noted to have large 2 cm post banding ulcer with adherent clot at 35 cm, another post pending ulcer with visible vessel at 37 cm hemo spray was applied to post banding ulcers, stomach showed diffuse congestion and erythema consistent with portal hypertensive gastropathy, small 5 mm healing ulcer was noted in the distal body, duodenum showed normal mucosa. She recommend Carafate 1 g q.i.d. for 14 days, Protonix 40 mg b.i.d. for 1 month, she recommend to hold Lovenox till undergo repeat EGD in 2-3 weeks to document healing of post banding ulcers as well as variceal obliteration before resuming Lovenox, no NSAIDs, no smoking and no alcohol. Will DC IV octreotide tolerating regular diet CBC stable #Decompensated hepatic cirrhosis- complicated by portal/mesenteric vein thrombosis, pancytopenia, coagulopathy -persistent pancytopenia and coagulopathy -lactulose as above -diuretics on hold due to soft blood pressures -Lovenox discontinued due to hematemesis #HTN -soft blood pressures status post pressors, lasix and spironolactone on hold. Will resume Lasix upon discharge if BP allows. #Polysubstance use -utox positive for fentanyl, heroin, on methadone being followed by Addiction Team will increase dose of methadone to 40 mg as per their recommendation. #GERD -continue ppi DVt prophylaxis- compression stockings full code Disposition - seen by PT, rec STR pt requires continued inpatient treatment to advance diet and to monitor for recurrent GI bleed. Quality Stroke Does the patient have a stroke diagnosis?: No VTE Prior VTE?: No VTE Risk Level:: Medical - moderate - high VTE Device Contraindication: Treatment Not Indicated VTE Drug Contraindication: N/A - Med Ordered
--- NOTE | 2023-08-13 12:18 | MHC.CM.PN ---
Per JAVIER/Francisca, labs are back and Patient is now medically cleared for dc. PT is recommending home/return to [facility] if Patient can have a walker and a room on the first floor (he is presently on the second floor and even to have a room on the first floor would still require him to manage 7 steps).CARLITO met with Patient and obtained the name of the person at the [facility] that CARLITO needs to speak with (Darleen @ [phone]). CARLITO called the # and spoke with Dorothy, who indicated that Darleen is not available and that she would need to discuss this with management. CARLITO provided Dorothy with CARLITO's contact information and awaits a return call from Darleen.
--- NOTE | 2023-08-13 12:29 | MHC.CM.PN ---
CM consulted with PT regarding the 7 steps Patient would need to manage to enter the snf, even if a first floor room could be arranged and the recommendation is for [facility] has been undated and is following.
--- NOTE | 2023-08-13 13:19 | MHC.CM.PN ---
CM returned a call to My at [facility] ([phone] Ext. [phone]). My indicates that Patient's PCP/Dr. Fatima has discharged Patient from her services(therefor Patient is unable to get home PT). Patient was receiving BID RN visits (Steffi ConnollyRN @ [phone]) from [employer] [facility],for Methadone delivery, which Patient would still be eligible for because this is managed by a different MD. STR remains the goal and CM will continue to follow.
--- NOTE | 2023-08-13 15:17 | MHC.RECOVRN ---
Met with pt to follow up after methadone increase to 40 mg. Pt sitting in chair, awake, alert, easily engages in conversation. Pt reports feeling excellent, appears comfortable. Pt denies withdrawal symptoms. Denies questions or concerns for t/w. Discussed with Maria Dolores Murillo APRN.
[2023-08-13] MEDS: cefTRIAXone sodium 1 GM in 0.9 % Sodium Chloride 50 ML IV (15:36)
[2023-08-13] MEDS: Omeprazole 40 MG CAPSULE.DR PO (16:58)
[2023-08-13 21:38] LABS: CK-BB None Detected (None Detected); CK-MB 1 % (<5); CK-MM 95 % (95-100); Creatine Kinase Isoenzyme Itrp MACRO CK TYPE 1; Creatine Kinase,Total,Serum 290 U/L (44-196)
[2023-08-14 02:58] VITALS: BP 111/63; PULSE 61; RESP 20; TEMP 36.1; O2SAT 98
[2023-08-14] MEDS: Omeprazole 40 MG CAPSULE.DR PO ×2 (05:40→15:21)
[2023-08-14 06:14] LABS: MANUAL DIFF FLAG NO
[2023-08-14 06:34] LABS: Basophils Percent Auto 1.3 % (0-2); Eosinophils Absolute Auto 0.2 X10*3/uL (0.0-0.4); Eosinophils Percent Auto 7.6 % (0-4); Hematocrit 27.1 % (42.0-52.0); Hemoglobin 9.9 g/dl (14.0-18.0); Imm Gran Abs Auto 0.02 X10*3/uL (0.00-0.03); Imm Gran Pct Auto 0.6 % (0.0-0.4); Lymphocytes Absolute Auto 0.8 X10*3/uL (1.2-4.9); Lymphocytes Percent Auto 26.7 % (20-40); Mean Corpuscular HGB Conc 36.5 g/dl (31.0-36.0); Mean Corpuscular Hemoglobin 34.3 pg (27.0-33.0); Mean Corpuscular Volume 93.8 fL (80.0-98.0); Mean Platelet Volume 11.9 fL (9.4-12.4); Monocytes Absolute Auto 0.3 X10*3/uL (0.1-1.2); Monocytes Percent Auto 8.9 % (2-11); Neutrophils Absolute Auto 1.7 x10*3/uL (2.0-8.3); Neutrophils Percent Auto 54.9 % (45-73); Red Blood Count 2.89 X10*6/uL (4.60-5.80); Red Cell Distribution Width 14.6 % (11.0-16.0); White Blood Count 3.2 X10*3/uL (4.8-10.8)
[2023-08-14 06:35] LABS: Platelet Count 73 X10*3/uL (160-400)
[2023-08-14 06:47] LABS: Anion Gap 10 (12-20); Blood Urea Nitrogen 8 mg/dL (9-16); Calcium 8.8 mg/dL (8.4-10.2); Carbon Dioxide 25 mmol/L (22-29); Chloride 106 mmol/L (96-108); Creatinine Clr Calc Pharmacy 99.5; Estimated Glomerular Filt Rate > 60; Glucose Random 106 mg/dL (60-115); Potassium 3.8 mmol/L (3.3-5.1); Sodium 137 mmol/L (135-145)
[2023-08-14 07:24] VITALS: BP 118/62; PULSE 67; RESP 20; TEMP 36.6; O2SAT 100
[2023-08-14] MEDS: Sucralfate Oral Suspension 1 GM/10 ML ORAL.SUSP PO ×4 (07:26→19:56)
[2023-08-14] MEDS: Thiamine HCL 100 MG in 0.9 % Sodium Chloride 100 ML 202 MG IV (08:13)
[2023-08-14] MEDS: Lactulose 20 GM/30 ML SOLUTION 30 GM PO ×3 (08:13→19:55)
[2023-08-14] MEDS: methADONE HCl 20 MG/2 ML ORAL.CONC 40 MG PO (08:14)
[2023-08-14 11:06] VITALS: BP 118/63; PULSE 70; RESP 18; TEMP 36.8; O2SAT 98
--- NOTE | 2023-08-14 11:29 | PM.DS ---
DS: Providers Provider Date of Service: 08/14/23 Date of admission: 08/08/23 13:43 Date of discharge: 08/14/23 Primary care physician: Unknown Physician Consults: 08/08/23 13:43 Addiction Medicine Routine Consulting Provider: Addiction Covering Reason for consultation: substance use 08/08/23 14:02 Consult to Gastroenterology Routine Consulting Provider: Brenda Valadez Reason for consultation: hepatic encephalopathy Attending physician on discharge: Hao Castillo Discharging clinician: Francisca Alvarado DS: Diagnosis Discharge Diagnosis (1) Portal vein thrombosis: Status: Acute (2) Upper GI bleed: Status: Acute DS: Summary Hospital Course Hospital Course: From H&P on the day of admission 68-year-old male with history of hypertension, hepatic cirrhosis complicated by pencytopenia and portal vein thrombosis anticoagulated with Lovenox, polysubstance use, GERD presents to the ED at the recommendation of VNA due to altered mental status. Per VNA, the patient was found lethargic, sitting on the floor next to the bed which is different than his baseline. At baseline he is alert and oriented, ambulatory. The patient is unable to provide history but does open his eyes and state his name when asked but otherwise is disoriented. Denies any complaints. Does endorse inhaled heroin use last night. On arrival, patient has been intermittently tachycardic to 115, vitals otherwise stable. He did briefly desaturate while sleeping into the 80s and was placed on 2 L supplemental O2 but is maintaining oximetry 96-100% on room air during exam. Hematology studies show increase from baseline WBC to 4.6, likely hemoconcentrated. Stable normocytic anemia and thombocytopenia. Renal function baseline, electrolyte levels normal. Liver function tests baseline, ammonia level 63. Total CK 452. Urinalysis unremarkable. Urine tox screen positive for opiates and fentanyl. Negative for covid, influenza. Head CT negative for any acute intracranial abnormality but shows generalized atrophy and nonspecific white matter disease. Chest x-ray negative for any acute cardiopulmonary abnormality. CT abdomen/pelvis shows small amount of thrombus in the distal SMV near the portal splenic confluence similar to prior exams as well as cirrhotic appearing liver, tips, to plastic bile duct stents, embolization coils and splenomegaly but no ascites. In the ED, given 200g lactulose MO, 1L NS. Shortly after admittion to the medical service for encephalopahy, thepatient had a large episode of claudio hemoptysis with large clots and subsequently was transferred to ICU for intubation to protect airway.He was started on octreotide and PPI. EGD on 08/09/2023 with no active bleeding, but showed adherent clot at site of prior variceal banding, as well as gastric ulcer. Extubated 08/10/2023 and downgrade back to the medical floor 08/12. Acute toxic metabolic encephalopathy due to hepatic encephalopathy Resolved with lactulose. CT head negative for acute intracranial abnormality continue lactulose 30 g t.i.d. Acute upper GI bleed. Status post blood transfusion. Started on IV PPI and octreotide drip. Seen by GI and underwent upper endoscopy by Dr. Valadez and noted to have large 2 cm post banding ulcer with adherent clot at 35 cm, another post pending ulcer with visible vessel at 37 cm hemo spray was applied to post banding ulcers, stomach showed diffuse congestion and erythema consistent with portal hypertensive gastropathy, small 5 mm healing ulcer was noted in the distal body, duodenum showed normal mucosa. GI recommend Carafate 1 g q.i.d. for 14 days, Protonix 40 mg b.i.d. for 1 month, she recommend to hold Lovenox till undergo repeat EGD in 2-3 weeks to document healing of post banding ulcers as well as variceal obliteration before resuming Lovenox, no NSAIDs, no smoking and no alcohol. He has been tolerating a regular diet and he CBC has remained stable. Decompensated hepatic cirrhosis- complicated by portal/mesenteric vein thrombosis, pancytopenia lactulose as above. resume diuretics. Lovenox discontinued due to hematemesis. Should remain on hold until repeat EGD as above. HTN blood pressures soft, but improved on day of discharge. resume home meds Polysubstance use utox positive for fentanyl, heroin, on methadone being followed by Addiction Team. Received Methadone 40 mg. will follow up outpatient patient was seen by PT who recommended STR. The patient has declined STR and has opted to return back to longterm. Time Attestation Discharge coordination time: Greater than 30 minutes Quality: Safe Use of Opioids Does Pt have an Active Cancer Diagnosis on the Problem List?: No Quality: Stroke Does the patient have a stroke diagnosis?: No Physical Exam Vital Signs: Vital Signs: Last Vital Signs Temp 98.3 F 08/14/23 11:06 Pulse 70 08/14/23 11:06 Resp 18 08/14/23 11:06 BP 118/63 08/14/23 11:06 Pulse Ox 98 08/14/23 11:06 O2 Del Method Room Air 08/14/23 11:06 O2 Flow Rate 08/09/23 07:00 FiO2 08/10/23 09:00 BMI result Body Mass Index 28.6 Const: General: cooperative, comfortable, no acute distress, alert and awake Nutritional Appearance: average body habitus Orientation/consciousness: patient oriented x3 Resp: Effort & Inspection: normal respiratory effort, able to speak in complete sentences, no respiratory distress and no use of accessory muscles Cardio: Rate: regular rate GI: Inspection: No distended Palpation (GI): Soft to palpation and nontender Skin: Other: chronic skin changes lower extremities Neuro: Other: grossly nonfocal General: patient oriented x3 and moves all extremities Extrem: General: Yes no pedal edema DS: Data Data Completed and Pending Labs on day of discharge: Laboratory Results - last 24 hr 08/08/23 08/14/23 22:07 05:31 WBC 3.2 L RBC 2.89 L Hgb 9.9 L Hct 27.1 L MCV 93.8 MCH 34.3 H MCHC 36.5 H RDW 14.6 Plt Count 73 L D MPV 11.9 Immature Gran % (Auto) 0.6 H Neut % (Auto) 54.9 Lymph % (Auto) 26.7 [place] % (Auto) 8.9 Eos % (Auto) 7.6 H Baso % (Auto) 1.3 Lymph # (Auto) 0.8 L [place] # (Auto) 0.3 Eos # (Auto) 0.2 Baso # (Auto) 0.0 Abs Immat Gran (auto) 0.02 Absolute Neuts (auto) 1.7 L Absolute Nucleated RBC 0.000 Nucleated RBC % (auto) 0.0 Sodium 137 Potassium 3.8 Chloride 106 Carbon Dioxide 25 Anion Gap 10 L BUN 8 L Creatinine 0.79 Estim Creat Clear Calc 99.5 Estimated GFR > 60 Random Glucose 106 Calcium 8.8 Total Creatine Kinase 290 H CK-MM (CK-3) 95 CK-MB (CK-2) 1 CK-BB (CK-1) None Detected CK Isoenzymes Interp MACRO CK TYPE 1 Discharge Plan Discharge Anticipated Discharge Date/Time: 08/14/23 12:13 Patient Disposition: Home, Self-Care Discharge Diagnosis: acute GI bleeding hepatic encephalopathy Referrals: Physician,Unknown J [Primary Care Provider] - 1 Week Brenda Valadez MD [Physician] - 1 Week Discharge Medications: New sucralfate 100 mg/mL Suspension 1 g PO QIDACHS 10 Days Qty: 400 0RF methadone [Methadose] 10 mg/mL Concentrate 40 mg PO DAILY Qty: 30 0RF Rx Instructions: Partial Fill upon patient request. lactulose 20 gram/30 mL Solution 30 g PO TID Qty: 1200 0RF Continued folic acid 1 mg tablet 1 mg PO DAILY Qty: 30 0RF pyridoxine (vitamin B6) 50 mg capsule 50 mg PO DAILY Qty: 30 0RF spironolactone 100 mg tablet 100 mg PO QAM Qty: 30 0RF thiamine HCl (vitamin B1) 100 mg tablet 100 mg PO DAILY Qty: 30 0RF docusate sodium 100 mg Capsule 100 mg PO BID PRN (Reason: Constipation) hydroxyzine HCl 25 mg Tablet 25 mg PO QID PRN (Reason: Anxiety) ferrous sulfate 325 mg (65 mg iron) tablet 325 mg PO DAILY furosemide 40 mg tablet 40 mg PO DAILY Changed pantoprazole [Protonix] 40 mg tablet,delayed release (DR/EC) 40 mg PO BID 30 Days Qty: 60 0RF Held enoxaparin [Lovenox] 150 mg/mL syringe 135 mg subcut Q12H Qty: 54 0RF Hold Instructions: do not take until repeat EGD Discontinued lactulose 10 gram/15 mL (15 mL) solution 15 ml PO TID Qty: 1440 0RF methadone [Methadone Intensol] 10 mg/mL Concentrate 50 mg PO DAILY Xifaxan 550 mg tablet 550 mg PO BID Discharge Orders: Discharge Order (Routine); Ordered 08/14/23 Ordered By: Francisca Alvarado Activity on Discharge: As tolerated Stand Alone Forms: Patient Portal Discharge page Care Plan Goals: see below Health Concerns: Upper GI bleeding due to post banding ulcers, portal hypertensive gastropathy, healing gastric ulcer hepatic encephalopathy Plan of Treatment: Take Carafate 1 gm QID for 10 more days continue Pantoprazole 40 BID for 4 weeks do not take Lovenox until repeat EGD in 2-3 weeks dose of lactulose was increased, take as prescribed call to schedule follow up appointment with your primary molding 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
[2023-08-14 13:00] VITALS: O2SAT 96
--- NOTE | 2023-08-14 14:12 | HO.PM.IMPN ---
Subjective Subjective Date of Service: 08/14/23 Interval History: seen and examined this morning follow up for gi bleeding no overnight events feeling well Review of Systems Review of Systems: Yes all other systems are reviewed and are negative Constitutional Constitutional: Denies chills and Denies fever(s) Cardiovascular Cardiovascular: Denies chest pain, Denies palpitations and Denies dyspnea Respiratory Respiratory: Denies cough and Denies dyspnea Endocrine Endocrine: Denies palpitations Physical Exam Vital Signs: Vital Signs: Last Vital Signs Temp 98.3 F 08/14/23 11:06 Pulse 70 08/14/23 11:06 Resp 18 08/14/23 11:06 BP 118/63 08/14/23 11:06 Pulse Ox 96 08/14/23 13:00 O2 Del Method Room Air 08/14/23 13:00 O2 Flow Rate 08/09/23 07:00 FiO2 08/10/23 09:00 BMI result Body Mass Index 28.6 Const: General: cooperative, comfortable, no acute distress, alert and awake Nutritional Appearance: average body habitus Orientation/consciousness: patient oriented x3 Resp: Effort & Inspection: normal respiratory effort, able to speak in complete sentences, no respiratory distress and no use of accessory muscles Cardio: Rate: regular rate GI: Inspection: No distended Palpation (GI): Soft to palpation and nontender Skin: Other: chronic skin changes lower extremities Neuro: Other: grossly nonfocal General: patient oriented x3 and moves all extremities Extrem: General: Yes no pedal edema Objective Data Active Medications Ceftriaxone Sodium 1 gm/ (Sodium Chloride) 50 mls @ 100 mls/hr IV Q24H [facility] Last Infusion: 08/13/23 16:07 Dose: Infused Documented By: DAVID Thiamine HCl 100 mg/ Sodium (Chloride) 101 mls @ 202 mls/hr IV DAILY [facility] Last Infusion: 08/14/23 08:43 Dose: Infused Documented By: DAVIE Lactulose (Lactulose 20 Gm/30 Ml Solution) 30 gm PO TID [facility] Last Admin: 08/14/23 08:13 Dose: 30 gm Documented By: DAVIE Methadone HCl (Methadone Hcl 20 Mg/2 Ml Oral.Conc) 40 mg PO DAILY [facility] Last Admin: 08/14/23 08:14 Dose: 40 mg Documented By: DAVIE Omeprazole (Omeprazole 40 Mg Capsule.Dr) 40 mg PO BID@0630,1630 [facility] Last Admin: 08/14/23 05:40 Dose: 40 mg Documented By: BLAYNE Ondansetron HCl (Ondansetron Hcl 4 Mg/2 Ml Vial) 4 mg IVPUSH Q8H PRN PRN Reason: Nausea and Vomiting Sucralfate (Sucralfate Oral Suspension 1 Gm/10 Ml Oral.Susp) 1 gm PO QIDACHS [facility] Last Admin: 08/14/23 11:10 Dose: 1 gm Documented By: DAVIE Labs 08/14/23 05:31 08/14/23 05:31 Labs: Laboratory Results - last 24 hr 08/08/23 08/14/23 22:07 05:31 MCV 93.8 MCH 34.3 H MCHC 36.5 H RDW 14.6 Plt Count 73 L D MPV 11.9 Immature Gran % (Auto) 0.6 H Neut % (Auto) 54.9 Lymph % (Auto) 26.7 Ogle % (Auto) 8.9 Eos % (Auto) 7.6 H Baso % (Auto) 1.3 Lymph # (Auto) 0.8 L Ogle # (Auto) 0.3 Eos # (Auto) 0.2 Baso # (Auto) 0.0 Abs Immat Gran (auto) 0.02 Absolute Neuts (auto) 1.7 L Absolute Nucleated RBC 0.000 Nucleated RBC % (auto) 0.0 Anion Gap 10 L Estim Creat Clear Calc 99.5 Estimated GFR > 60 Random Glucose 106 Calcium 8.8 Total Creatine Kinase 290 H CK-MM (CK-3) 95 CK-MB (CK-2) 1 CK-BB (CK-1) None Detected CK Isoenzymes Interp MACRO CK TYPE 1 Assessment and Plan (1) Cirrhosis: Status: Acute (2) Upper GI bleed: Status: Acute (3) Portal vein thrombosis: Status: Acute Plan This is a 68-year-old male with history of hypertension, hepatic cirrhosis complicated by pancytopenia and portal vein thrombosis anticoagulated with Lovenox, polysubstance use, GERD admitted for management of hepatic encephalopathy, in ER had an episode of claudio hematemesis with large clots, right femoral line was placed and patient was transferred to ICU for airway protection and intubation. Acute toxic metabolic encephalopathy due to hepatic encephalopathy Resolved patient awake alert CT head negative for acute intracranial abnormality continue lactulose 30 g t.i.d. Acute upper GI bleed. Status post 1 unit of blood hematocrit low but stable close to baseline Underwent upper endoscopy by Dr. Valadez noted to have large 2 cm post banding ulcer with adherent clot at 35 cm, another post pending ulcer with visible vessel at 37 cm hemo spray was applied to post banding ulcers, stomach showed diffuse congestion and erythema consistent with portal hypertensive gastropathy, small 5 mm healing ulcer was noted in the distal body, duodenum showed normal mucosa. She recommend Carafate 1 g q.i.d. for 14 days, Protonix 40 mg b.i.d. for 1 month, she recommend to hold Lovenox till undergo repeat EGD in 2-3 weeks to document healing of post banding ulcers as well as variceal obliteration before resuming Lovenox, no NSAIDs, no smoking and no alcohol. s/p octreotide drip tolerating regular diet CBC stable can stop rifaximin upon discharge should follow up with GI from [facility] Decompensated hepatic cirrhosis- complicated by portal/mesenteric vein thrombosis, pancytopenia, coagulopathy platlets improving continue lactulose as above diuretics have been on hold due to soft blood pressures, will resume lower dose of lasix and tritrate as tolerated -Lovenox discontinued due to hematemesis, should hold until repeat EGD as above HTN soft blood pressures status post pressors, lasix and spironolactone on hold. Will resume Lasix and follow bp Polysubstance use utox positive for fentanyl, heroin, on methadone being followed by Addiction Team will increase dose of methadone to 40 mg as per their recommendation. will need outpatient follow up GERD continue ppi DVt prophylaxis- compression stockings full code Disposition - seen by PT, rec STR. patient initially wanting to go back to custodial but with 13 stairs to custodial and no first floor room available he is now agreeable for STR pt requires continued inpatient stay for safe disposition Quality Stroke Does the patient have a stroke diagnosis?: No VTE Prior VTE?: No VTE Risk Level:: Medical - moderate - high VTE Device Contraindication: Treatment Not Indicated VTE Drug Contraindication: N/A - Med Ordered
[2023-08-14] MEDS: Furosemide 20 MG TABLET PO (15:21)
[2023-08-14] MEDS: cefTRIAXone sodium 1 GM in 0.9 % Sodium Chloride 50 ML IV (15:21)
[2023-08-14 16:00] VITALS: BP 95/63; PULSE 71; RESP 20; TEMP 37; O2SAT 97
--- NOTE | 2023-08-14 16:12 | MHC.CM.PN ---
PT rec STR, no bed offers at this time. Pt states he wanted to return to the homeless residential. This CM called Darleen from [facility] (see CM's previous note), and she had Ladonna from [facility] call this CM to discuss pts return. Per Ladonna ([phone]), they do not have medical biller in the home, he has 13 steps leading up to his room, and they do not have a 1st floor bed available. They have concerns since they have found pt unconscious x 2 and feel he is too medically complex to return right now. Per Lorries request, she spoke with the pt to discuss. Ladonna states they can hold his bed for 2-3 weeks for him at the residential if he goes to STR. Pt now agreeable to going to STR. CM will continue STR bed search.
[2023-08-14 19:53] VITALS: BP 100/57; PULSE 75; RESP 20; TEMP 37.2; O2SAT 97
[2023-08-15] VITALS (8 sets, daily range): BP systolic 95–141; BP diastolic 52–73; PULSE 67–75; RESP 18–20; TEMP 36.6–37.6; O2SAT 96–98; BMI 29.6
[2023-08-15] MEDS: Omeprazole 40 MG CAPSULE.DR PO ×2 (06:00→15:55)
[2023-08-15] MEDS: Lactulose 20 GM/30 ML SOLUTION 30 GM PO ×3 (09:10→20:07)
[2023-08-15] MEDS: methADONE HCl 20 MG/2 ML ORAL.CONC 40 MG PO (09:10)
[2023-08-15] MEDS: Furosemide 20 MG TABLET PO (09:10)
[2023-08-15] MEDS: Sucralfate Oral Suspension 1 GM/10 ML ORAL.SUSP PO ×4 (09:10→20:09)
[2023-08-15] MEDS: Potassium Chloride Packet 20 MEQ PACKET 40 MEQ PO (09:11)
[2023-08-15] MEDS: Thiamine HCL 100 MG in 0.9 % Sodium Chloride 100 ML 202 MG IV (09:13)
--- NOTE | 2023-08-15 10:36 | HO.PM.IMPN ---
Subjective Subjective Date of Service: 08/15/23 Interval History: seen and examined this morning follow up for gi bleed no overnight events, feeling well now amenable to STR Review of Systems Review of Systems: Yes all other systems are reviewed and are negative Constitutional Constitutional: Denies chills and Denies fever(s) Cardiovascular Cardiovascular: Denies chest pain, Denies palpitations and Denies dyspnea Respiratory Respiratory: Denies cough and Denies dyspnea Gastrointestinal Gastrointestinal: Denies abdominal pain, Denies nausea and Denies vomiting Endocrine Endocrine: Denies palpitations Physical Exam Vital Signs: Vital Signs: Last Vital Signs Temp 98.4 F 08/15/23 07:41 Pulse 70 08/15/23 07:41 Resp 20 08/15/23 07:41 BP 141/70 H 08/15/23 07:41 Pulse Ox 98 08/15/23 07:41 O2 Del Method Room Air 08/15/23 07:41 O2 Flow Rate 08/09/23 07:00 FiO2 08/10/23 09:00 BMI result Body Mass Index 29.6 Const: General: cooperative, comfortable, no acute distress, alert and awake Nutritional Appearance: average body habitus Orientation/consciousness: patient oriented x3 Resp: Effort & Inspection: normal respiratory effort, able to speak in complete sentences, no respiratory distress and no use of accessory muscles Cardio: Rate: regular rate GI: Inspection: No distended Palpation (GI): Soft to palpation and nontender Skin: Other: chronic skin changes lower extremities Neuro: Other: grossly nonfocal General: patient oriented x3 and moves all extremities Extrem: General: Yes no pedal edema Objective Data Active Medications Furosemide (Furosemide 20 Mg Tablet) 20 mg PO DAILY [facility]; Protocol Last Admin: 08/15/23 09:10 Dose: 20 mg Documented By: BETHANY Thiamine HCl 100 mg/ Sodium (Chloride) 101 mls @ 202 mls/hr IV DAILY [facility] Last Admin: 08/15/23 09:13 Dose: 202 mls/hr Documented By: BETHANY Lactulose (Lactulose 20 Gm/30 Ml Solution) 30 gm PO TID [facility] Last Admin: 08/15/23 09:10 Dose: 30 gm Documented By: BETHANY Methadone HCl (Methadone Hcl 20 Mg/2 Ml Oral.Conc) 40 mg PO DAILY [facility] Last Admin: 08/15/23 09:10 Dose: 40 mg Documented By: BETHANY Omeprazole (Omeprazole 40 Mg Capsule.) 40 mg PO BID@0630,1630 [facility] Last Admin: 08/15/23 06:00 Dose: 40 mg Documented By: BLAYNE Ondansetron HCl (Ondansetron Hcl 4 Mg/2 Ml Vial) 4 mg IVPUSH Q8H PRN PRN Reason: Nausea and Vomiting Sucralfate (Sucralfate Oral Suspension 1 Gm/10 Ml Oral.Susp) 1 gm PO QIDACHS [facility] Last Admin: 08/15/23 09:10 Dose: 1 gm Documented By: BETHANY Labs 08/14/23 05:31 08/14/23 05:31 Assessment and Plan (1) Upper GI bleed: Status: Acute Plan This is a 68-year-old male with history of hypertension, hepatic cirrhosis complicated by pancytopenia and portal vein thrombosis anticoagulated with Lovenox, polysubstance use, GERD admitted for management of hepatic encephalopathy, in ER had an episode of claudio hematemesis with large clots, right femoral line was placed and patient was transferred to ICU for airway protection and intubation downgraded to the medical floor 08/12 Acute toxic metabolic encephalopathy due to hepatic encephalopathy Resolved. patient remains awake and alert CT head negative for acute intracranial abnormality continue lactulose 30 g t.i.d. Acute upper GI bleed. Status post 1 unit of blood hematocrit low but stable close to baseline Underwent upper endoscopy by Dr. Valadez noted to have large 2 cm post banding ulcer with adherent clot at 35 cm, another post pending ulcer with visible vessel at 37 cm hemo spray was applied to post banding ulcers, stomach showed diffuse congestion and erythema consistent with portal hypertensive gastropathy, small 5 mm healing ulcer was noted in the distal body, duodenum showed normal mucosa. She recommend Carafate 1 g q.i.d. for 14 days, Protonix 40 mg b.i.d. for 1 month, she recommend to hold Lovenox till undergo repeat EGD in 2-3 weeks to document healing of post banding ulcers as well as variceal obliteration before resuming Lovenox, no NSAIDs, no smoking and no alcohol. s/p octreotide drip tolerating regular diet CBC stable can stop rifaximin upon discharge per GI should follow up with GI at [facility] for repeat EGD and also for previously placed biliary stents to be removed Decompensated hepatic cirrhosis- complicated by portal/mesenteric vein thrombosis, pancytopenia, coagulopathy platelets improving continue lactulose as above diuretics have been on hold due to soft blood pressures, will resume lower dose of lasix and tritrate as tolerated Lovenox discontinued due to hematemesis, should hold until repeat EGD as above HTN soft blood pressures status post pressors, spironolactone on hold. Will resume Lasix and follow bp Polysubstance use utox positive for fentanyl, heroin, on methadone being followed by Addiction Team will increase dose of methadone to 40 mg as per their recommendation. will need outpatient follow up GERD continue ppi DVt prophylaxis- compression stockings full code Disposition - seen by PT, rec STR. patient initially wanting to go back to half-way but with 13 stairs to half-way and no first floor room available concern for safety, he is now agreeable for STR pt requires continued inpatient stay for safe disposition Quality Stroke Does the patient have a stroke diagnosis?: No VTE Prior VTE?: No VTE Risk Level:: Medical - moderate - high VTE Device Contraindication: Treatment Not Indicated VTE Drug Contraindication: N/A - Med Ordered
--- NOTE | 2023-08-15 16:19 | MHC.CM.PN ---
No STR bed offers received, no response given by lauren who was following on [facility]. Call placed to [facility] this am, no return call received.
[2023-08-16] VITALS (8 sets, daily range): BP systolic 92–131; BP diastolic 50–69; PULSE 63–68; RESP 16–20; TEMP 36.5–37.2; O2SAT 94–97; BMI 29.0
[2023-08-16] MEDS: Omeprazole 40 MG CAPSULE.DR PO ×2 (05:55→16:55)
[2023-08-16] MEDS: Sucralfate Oral Suspension 1 GM/10 ML ORAL.SUSP PO ×4 (09:10→20:06)
[2023-08-16] MEDS: methADONE HCl 20 MG/2 ML ORAL.CONC 40 MG PO (09:12)
[2023-08-16] MEDS: Thiamine HCL 100 MG in 0.9 % Sodium Chloride 100 ML 202 MG IV (09:13)
--- NOTE | 2023-08-16 11:16 | MHC.CM.PN ---
The referral to [facility] has been updated and CM awaits a bed offer bending bed availability at [facility]. CM will follow.
--- NOTE | 2023-08-16 13:52 | P.PNIM_ITS ---
Subjective Subjective Date of Service: 08/16/23 Interval History: seen and examined this morning follow up for gi bleed no overnight events, feeling well now amenable to STR Review of Systems Review of Systems: Yes all other systems are reviewed and are negative Constitutional Constitutional: Denies chills and Denies fever(s) Cardiovascular Cardiovascular: Denies chest pain, Denies palpitations and Denies dyspnea Respiratory Respiratory: Denies cough and Denies dyspnea Gastrointestinal Gastrointestinal: Denies abdominal pain, Denies nausea and Denies vomiting Endocrine Endocrine: Denies palpitations Physical Exam 2 Vital Signs: Vital Signs: Last Vital Signs Temp 98.9 F 08/16/23 11:53 Pulse 63 08/16/23 11:53 Resp 16 08/16/23 11:53 BP 105/56 L 08/16/23 11:53 Pulse Ox 97 08/16/23 11:53 O2 Del Method Room Air 08/16/23 11:53 O2 Flow Rate 08/09/23 07:00 FiO2 08/10/23 09:00 BMI result Body Mass Index 29.0 Appearing in no acute distress lung sounds are clear to auscultation heart regular rate rhythm, clear S1, S2 positive bowel sounds, abdomen is soft, nontender neuro patient is alert x3, no focal deficits Objective Data Active Medications Furosemide (Furosemide 40 Mg Tablet) 40 mg PO DAILY [facility]; Protocol Last Admin: 08/16/23 10:09 Dose: Not Given Documented By: AMBAR Non-Admin Reason: Physician Held Med Thiamine HCl 100 mg/ Sodium (Chloride) 101 mls @ 202 mls/hr IV DAILY [facility] Last Infusion: 08/16/23 10:39 Dose: Infused Documented By: AMBAR Lactulose (Lactulose 20 Gm/30 Ml Solution) 30 gm PO TID [facility] Last Admin: 08/16/23 09:10 Dose: Not Given Documented By: AMBAR Non-Admin Reason: Patient Asleep Methadone HCl (Methadone Hcl 20 Mg/2 Ml Oral.Conc) 40 mg PO DAILY [facility] Last Admin: 08/16/23 09:12 Dose: 40 mg Documented By: AMBAR Omeprazole (Omeprazole 40 Mg Capsule.Dr) 40 mg PO BID@0630,1630 [facility] Last Admin: 08/16/23 05:55 Dose: 40 mg Documented By: MICHAEL Ondansetron HCl (Ondansetron Hcl 4 Mg/2 Ml Vial) 4 mg IVPUSH Q8H PRN PRN Reason: Nausea and Vomiting Sucralfate (Sucralfate Oral Suspension 1 Gm/10 Ml Oral.Susp) 1 gm PO QIDACHS [facility] Last Admin: 08/16/23 11:20 Dose: 1 gm Documented By: AMBAR Labs 08/14/23 05:31 08/14/23 05:31 Assessment and Plan (1) Upper GI bleed: Status: Acute Plan 68-year-old male with history of hypertension, hepatic cirrhosis complicated by pancytopenia and portal vein thrombosis anticoagulated with Lovenox, polysubstance use, GERD admitted for management of hepatic encephalopathy, in ER had an episode of claudio hematemesis with large clots, right femoral line was placed and patient was transferred to ICU for airway protection and intubation downgraded to the medical floor 08/12 Acute toxic metabolic encephalopathy due to hepatic encephalopathy Resolved. patient remains awake and alert CT head negative for acute intracranial abnormality continue lactulose 30 g t.i.d. Acute upper GI bleed. s/p 1 unit of blood hematocrit low but stable close to baseline s/p EGD>noted to have large 2 cm post banding ulcer with adherent clot at 35 cm, another post pending ulcer with visible vessel at 37 cm hemo spray was applied to post banding ulcers, stomach showed diffuse congestion and erythema consistent with portal hypertensive gastropathy, small 5 mm healing ulcer was noted in the distal body, duodenum showed normal mucosa. continue Carafate 1 g q.i.d. for 14 days Protonix 40 mg b.i.d. for 1 month hold Lovenox till repeat EGD in 2-3 weeks to document healing of post banding ulcers as well as variceal obliteration before resuming Lovenox, no NSAIDs, no smoking and no alcohol. s/p octreotide drip stop rifaximin upon discharge per GI should follow up with GI at [facility] for repeat EGD and also for previously placed biliary stents to be removed Decompensated hepatic cirrhosis- complicated by portal/mesenteric vein thrombosis, pancytopenia, coagulopathy platelets improving continue lactulose as above diuretics have been on hold due to soft blood pressures, will resume lower dose of lasix and tritrate as tolerated Lovenox discontinued due to hematemesis, should hold until repeat EGD as above HTN soft blood pressures status post pressors, spironolactone on hold. Will resume Lasix and follow bp Polysubstance use utox positive for fentanyl, heroin, on methadone being followed by Addiction Team will increase dose of methadone to 40 mg as per their recommendation. will need outpatient follow up GERD continue ppi DVt prophylaxis- compression stockings attending Dr. Verde full code Disposition - seen by PT, rec STR. patient initially wanting to go back to half-way but with 13 stairs to half-way and no first floor room available concern for safety, he is now agreeable for STR pt requires continued inpatient stay for safe disposition Quality Stroke Does the patient have a stroke diagnosis?: No VTE Prior VTE?: No VTE Risk Level:: Medical - moderate - high VTE Device Contraindication: Treatment Not Indicated VTE Drug Contraindication: N/A - Med Ordered
[2023-08-16] MEDS: Lactulose 20 GM/30 ML SOLUTION 30 GM PO ×2 (15:08→20:04)
--- NOTE | 2023-08-16 17:04 | HO.WOUND ---
Wound Consult: Initial 68yr old?M admitted to [facility] on 08/08/23 13:43- See progress notes and H&P for detailed history.? Wound consult placed for Bilateral Lower Leg - Venous Dermatitis .? Patient agreeable to assessment and photo documentation.? The patient bilateral lower legs are noted for no open wounds at this time. He does have dry thick kertinized scaling tissue noted - could be standard venous dermatitis with thickened tissue however etiology remains unknown due to the thickness of the scaling and epidermal layer. Recommend outpt dermatology follow up for diagnosis. The patient is living in a fdc and reports he does have access to a shower but does not wash or scrub his legs - he reports he is worried given the appearance of his legs it would be dangerous to scrub them. Patient educated on the importance of routine washing and drying to soften dry thick tissue. He would benefit from cream / ointment with Urea as this will act as a skin softner and aid in gentle removal of thickened tissue. Inpatient pharmacy called no such cream available inpatient. Outpatient recommend Ointment with Urea present. Bilateral Lower Leg Etiology: ?Etiology Unknown - Dry Thick scaling intact tissue Wound Bed: No open tissue Drainage / Odor: None Kathleen wound: ? dry thick keratinized hyperpigmented tissue Pain: denies pain and denies itching Goals of Treatment: ? Soften and moisturize tissue Recommendations: 1. Bilateral Lower Legs - Swiss with Simona spray allow to soak with warm wet towel on legs. Wash legs, dry. Apply Vaseline to lower legs cover with dry gauze. Change daily. There are no wounds at this time - this is preventative to aid in striping off the dry thick scaling tissue which he is prone to wound development while inplace. Re-consult wound care Nurse for wound deterioration or wound changes.
[2023-08-17] VITALS (8 sets, daily range): BP systolic 96–111; BP diastolic 55–65; PULSE 59–75; RESP 17–20; TEMP 36.3–37.2; O2SAT 94–98; BMI 29.4
[2023-08-17] MEDS: Omeprazole 40 MG CAPSULE.DR PO ×2 (05:36→16:00)
[2023-08-17] MEDS: Sucralfate Oral Suspension 1 GM/10 ML ORAL.SUSP PO ×4 (07:57→20:45)
[2023-08-17] MEDS: Lactulose 20 GM/30 ML SOLUTION 30 GM PO ×3 (07:57→20:45)
[2023-08-17] MEDS: methADONE HCl 20 MG/2 ML ORAL.CONC 40 MG PO (07:58)
[2023-08-17] MEDS: Thiamine HCL 100 MG in 0.9 % Sodium Chloride 100 ML 202 MG IV (08:03)
[2023-08-17 08:48] LABS: Hemoglobin 8.9 g/dl (14.0-18.0); Mean Corpuscular Hemoglobin 31.4 pg (27.0-33.0); Mean Corpuscular Volume 95.4 fL (80.0-98.0); Platelet Count 67 X10*3/uL (160-400); Red Blood Count 2.83 X10*6/uL (4.60-5.80); Red Cell Distribution Width 15.7 % (11.0-16.0); White Blood Count 2.8 X10*3/uL (4.8-10.8)
[2023-08-17 08:57] LABS: Anion Gap 10 (12-20); Blood Urea Nitrogen 10 mg/dL (9-16); Calcium 8.9 mg/dL (8.4-10.2); Carbon Dioxide 26 mmol/L (22-29); Chloride 105 mmol/L (96-108); Creatinine Clr Calc Pharmacy 110.5; Estimated Glomerular Filt Rate > 60; Glucose Random 86 mg/dL (60-115); Potassium 4.6 mmol/L (3.3-5.1); Sodium 136 mmol/L (135-145)
--- NOTE | 2023-08-17 11:01 | P.PNIM_ITS ---
Subjective Subjective Date of Service: 08/17/23 Interval History: seen and examined this morning follow up for gi bleed no overnight events, feeling well now amenable to STR Review of Systems Review of Systems: Yes all other systems are reviewed and are negative Constitutional Constitutional: Denies chills and Denies fever(s) Cardiovascular Cardiovascular: Denies chest pain, Denies palpitations and Denies dyspnea Respiratory Respiratory: Denies cough and Denies dyspnea Gastrointestinal Gastrointestinal: Denies abdominal pain, Denies nausea and Denies vomiting Endocrine Endocrine: Denies palpitations Physical Exam 2 Vital Signs: Vital Signs: Last Vital Signs Temp 97.4 F 08/17/23 07:49 Pulse 59 08/17/23 07:49 Resp 20 08/17/23 07:49 BP 96/55 L 08/17/23 07:49 Pulse Ox 97 08/17/23 07:49 O2 Del Method Room Air 08/17/23 07:49 O2 Flow Rate 08/09/23 07:00 FiO2 08/10/23 09:00 BMI result Body Mass Index 29.4 alert and oriented LSCTA soft abd chronic venous dermatitis to bilat LE Objective Data Active Medications Furosemide (Furosemide 40 Mg Tablet) 40 mg PO DAILY [facility]; Protocol Last Admin: 08/17/23 08:00 Dose: Not Given Documented By: AMBAR Non-Admin Reason: Physician Held Med Thiamine HCl 100 mg/ Sodium (Chloride) 101 mls @ 202 mls/hr IV DAILY [facility] Last Infusion: 08/17/23 09:00 Dose: Infused Documented By: AMBAR Lactulose (Lactulose 20 Gm/30 Ml Solution) 30 gm PO TID [facility] Last Admin: 08/17/23 07:57 Dose: 30 gm Documented By: AMBAR Methadone HCl (Methadone Hcl 20 Mg/2 Ml Oral.Conc) 40 mg PO DAILY [facility] Last Admin: 08/17/23 07:58 Dose: 40 mg Documented By: AMBAR Omeprazole (Omeprazole 40 Mg Capsule.Dr) 40 mg PO BID@0630,1630 [facility] Last Admin: 08/17/23 05:36 Dose: 40 mg Documented By: CHRIS Ondansetron HCl (Ondansetron Hcl 4 Mg/2 Ml Vial) 4 mg IVPUSH Q8H PRN PRN Reason: Nausea and Vomiting Sucralfate (Sucralfate Oral Suspension 1 Gm/10 Ml Oral.Susp) 1 gm PO QIDACHS LEONARDO Last Admin: 08/17/23 07:57 Dose: 1 gm Documented By: AMBAR Labs 08/17/23 08:05 08/17/23 08:05 Labs: Laboratory Results - last 24 hr 08/17/23 08:05 MCV 95.4 MCH 31.4 MCHC 33.0 RDW 15.7 Plt Count 67 L MPV 11.0 Absolute Nucleated RBC 0.000 Nucleated RBC % (auto) 0.0 Anion Gap 10 L Estim Creat Clear Calc 110.5 Estimated GFR > 60 Random Glucose 86 Calcium 8.9 Assessment and Plan (1) Upper GI bleed: Status: Acute Plan 68-year-old male with history of hypertension, hepatic cirrhosis complicated by pancytopenia and portal vein thrombosis anticoagulated with Lovenox, polysubstance use, GERD admitted for management of hepatic encephalopathy, in ER had an episode of claudio hematemesis with large clots, right femoral line was placed and patient was transferred to ICU for airway protection and intubation downgraded to the medical floor 08/12 Acute toxic metabolic encephalopathy due to hepatic encephalopathy Resolved. patient remains awake and alert CT head negative for acute intracranial abnormality continue lactulose 30 g t.i.d. Acute upper GI bleed. s/p 1 unit of blood hematocrit low but stable close to baseline s/p EGD>noted to have large 2 cm post banding ulcer with adherent clot at 35 cm, another post pending ulcer with visible vessel at 37 cm hemo spray was applied to post banding ulcers, stomach showed diffuse congestion and erythema consistent with portal hypertensive gastropathy, small 5 mm healing ulcer was noted in the distal body, duodenum showed normal mucosa. continue Carafate 1 g q.i.d. for 14 days Protonix 40 mg b.i.d. for 1 month hold Lovenox till repeat EGD in 2-3 weeks to document healing of post banding ulcers as well as variceal obliteration before resuming Lovenox, no NSAIDs, no smoking and no alcohol. s/p octreotide drip stop rifaximin upon discharge per GI should follow up with GI at [facility] for repeat EGD and also for previously placed biliary stents to be removed Decompensated hepatic cirrhosis- complicated by portal/mesenteric vein thrombosis, pancytopenia, coagulopathy platelets improving continue lactulose as above diuretics have been on hold due to soft blood pressures, will resume lower dose of lasix and tritrate as tolerated Lovenox discontinued due to hematemesis, should hold until repeat EGD as above HTN soft blood pressures status post pressors, spironolactone on hold. Will resume Lasix and follow bp Polysubstance use utox positive for fentanyl, heroin, on methadone being followed by Addiction Team will increase dose of methadone to 40 mg as per their recommendation. will need outpatient follow up GERD continue ppi DVt prophylaxis- compression stockings attending Dr. Verde full code Disposition - seen by PT, rec STR. [facility] but with [facility] to [facility] and no first floor room available concern for safety, he is now agreeable for STR pt requires continued inpatient stay for safe disposition Quality Stroke Does the patient have a stroke diagnosis?: No VTE Prior VTE?: No VTE Risk Level:: Medical - moderate - high VTE Device Contraindication: Treatment Not Indicated VTE Drug Contraindication: N/A - Med Ordered
[2023-08-18 03:20] VITALS: BP 104/57; PULSE 68; RESP 18; TEMP 37.1; O2SAT 96
[2023-08-18] MEDS: Omeprazole 40 MG CAPSULE.DR PO ×2 (05:42→16:08)
[2023-08-18 06:00] VITALS: BMI 30.1
[2023-08-18 07:43] VITALS: BP 109/58; PULSE 67; RESP 20; TEMP 36.7; O2SAT 97
[2023-08-18] MEDS: Sucralfate Oral Suspension 1 GM/10 ML ORAL.SUSP PO ×4 (08:15→22:56)
[2023-08-18] MEDS: methADONE HCl 20 MG/2 ML ORAL.CONC 40 MG PO (08:15)
[2023-08-18] MEDS: Thiamine HCL 100 MG in 0.9 % Sodium Chloride 100 ML 202 MG IV (08:15)
[2023-08-18] MEDS: Lactulose 20 GM/30 ML SOLUTION 30 GM PO ×2 (08:15→16:08)
[2023-08-18] MEDS: Furosemide 40 MG TABLET PO (08:16)
--- NOTE | 2023-08-18 09:39 | P.PNIM_ITS ---
Subjective Subjective Date of Service: 08/18/23 Interval History: follow up for gi bleed doing well no pain or discomfort Review of Systems Review of Systems: Yes all other systems are reviewed and are negative Constitutional Constitutional: Denies chills and Denies fever(s) Cardiovascular Cardiovascular: Denies chest pain, Denies palpitations and Denies dyspnea Respiratory Respiratory: Denies cough and Denies dyspnea Gastrointestinal Gastrointestinal: Denies abdominal pain, Denies nausea and Denies vomiting Endocrine Endocrine: Denies palpitations Physical Exam 2 Vital Signs: Vital Signs: Last Vital Signs Temp 98.1 F 08/18/23 07:43 Pulse 67 08/18/23 07:43 Resp 20 08/18/23 07:43 BP 109/58 L 08/18/23 07:43 Pulse Ox 97 08/18/23 07:43 O2 Del Method Room Air 08/18/23 07:43 O2 Flow Rate 08/09/23 07:00 FiO2 24 08/10/23 09:00 BMI result Body Mass Index 30.1 Appearing in no acute distress lung sounds are clear to auscultation heart regular rate rhythm, clear S1, S2 positive bowel sounds, abdomen is soft, nontender neuro patient is alert x3, no focal deficits chronic LE venous skin changes Objective Data Active Medications Furosemide (Furosemide 40 Mg Tablet) 40 mg PO DAILY [facility]; Protocol Last Admin: 08/18/23 08:16 Dose: 40 mg Documented By: TERRY Thiamine HCl 100 mg/ Sodium (Chloride) 101 mls @ 202 mls/hr IV DAILY [facility] Last Admin: 08/18/23 08:15 Dose: 202 mls/hr Documented By: TERRY Lactulose (Lactulose 20 Gm/30 Ml Solution) 30 gm PO TID [facility] Last Admin: 08/18/23 08:15 Dose: 30 gm Documented By: TERRY Methadone HCl (Methadone Hcl 20 Mg/2 Ml Oral.Conc) 40 mg PO DAILY [facility] Last Admin: 08/18/23 08:15 Dose: 40 mg Documented By: TERRY Omeprazole (Omeprazole 40 Mg Capsule.Dr) 40 mg PO BID@0630,1630 [facility] Last Admin: 08/18/23 05:42 Dose: 40 mg Documented By: PIERCE Ondansetron HCl (Ondansetron Hcl 4 Mg/2 Ml Vial) 4 mg IVPUSH Q8H PRN PRN Reason: Nausea and Vomiting Sucralfate (Sucralfate Oral Suspension 1 Gm/10 Ml Oral.Susp) 1 gm PO QIDACHS LEONARDO Last Admin: 08/18/23 08:15 Dose: 1 gm Documented By: TERRY Labs 08/17/23 08:05 08/17/23 08:05 Assessment and Plan (1) Upper GI bleed: Status: Acute Plan 68-year-old male with history of hypertension, hepatic cirrhosis complicated by pancytopenia and portal vein thrombosis anticoagulated with Lovenox, polysubstance use, GERD admitted for management of hepatic encephalopathy, in ER had an episode of claudio hematemesis with large clots, right femoral line was placed and patient was transferred to ICU for airway protection and intubation downgraded to the medical floor 08/12 Acute toxic metabolic encephalopathy due to hepatic encephalopathy Resolved. patient remains awake and alert continue lactulose 30 g t.i.d. Acute upper GI bleed. s/p 1 unit of blood hematocrit low but stable close to baseline s/p EGD>noted to have large 2 cm post banding ulcer with adherent clot at 35 cm, another post pending ulcer with visible vessel at 37 cm hemo spray was applied to post banding ulcers, stomach showed diffuse congestion and erythema consistent with portal hypertensive gastropathy, small 5 mm healing ulcer was noted in the distal body, duodenum showed normal mucosa. continue Carafate 1 g q.i.d. for 14 days Protonix 40 mg b.i.d. for 1 month hold Lovenox till repeat EGD in 2-3 weeks to document healing of post banding ulcers as well as variceal obliteration before resuming Lovenox, no NSAIDs, no smoking and no alcohol. s/p octreotide drip stop rifaximin upon discharge per GI should follow up with GI at [facility] for repeat EGD and also for previously placed biliary stents to be removed Decompensated hepatic cirrhosis complicated by portal/mesenteric vein thrombosis, pancytopenia, coagulopathy platelets improving continue lactulose as above Lovenox discontinued due to hematemesis, should hold until repeat EGD as above HTN soft blood pressures status post pressors spironolactone on hold. Will resume Lasix and follow bp Polysubstance use utox positive for fentanyl, heroin on methadone being followed by Addiction Team GERD continue ppi DVt prophylaxis- compression stockings attending Dr. Verde full code Disposition - seen by PT, rec STR. patient initially wanting to go back to group home but with 13 stairs to group home and no first floor room available concern for safety, he is now agreeable for STR pt requires continued inpatient stay for safe disposition Quality Stroke Does the patient have a stroke diagnosis?: No VTE Prior VTE?: No VTE Risk Level:: Medical - moderate - high VTE Device Contraindication: Treatment Not Indicated VTE Drug Contraindication: N/A - Med Ordered
--- NOTE | 2023-08-18 10:27 | MHC.CM.PN ---
[facility] continues to follow but has not yet offered a bed; CM will follow.
[2023-08-18 10:34] VITALS: BP 109/58; PULSE 67; O2SAT 97
[2023-08-18 11:23] VITALS: BP 94/52; PULSE 71; RESP 20; TEMP 36.7; O2SAT 97
[2023-08-18 14:53] VITALS: BP 96/52; PULSE 69; RESP 20; TEMP 37; O2SAT 96
--- NOTE | 2023-08-18 15:47 | HO.WOUND ---
Wound Consult: Follow up 68yr old?M admitted to [facility] on 08/08/23 13:43- See progress notes and H&P for detailed history.? Wound consult follow up for Bilateral Lower Leg - Venous Dermatitis .? Patient agreeable to assessment and photo documentation.? The patient bilateral lower legs are noted for no open wounds at this time. No significant changes noted to his lower legs but the patient reports the thick tissue was peeling away to revela intact tissue yesterday. Of note the patient legs were open to air at the time of my assessment. He does have dry thick kertinized scaling tissue noted - could be standard venous dermatitis with thickened tissue however etiology remains unknown due to the thickness of the scaling and epidermal layer. Recommend outpt dermatology follow up for diagnosis. The patient is living in a group home and reports he does have access to a shower but does not wash or scrub his legs - he reports he is worried given the appearance of his legs it would be dangerous to scrub them. Patient educated on the importance of routine washing and drying to soften dry thick tissue. He would benefit from cream / ointment with Urea as this will act as a skin softner and aid in gentle removal of thickened tissue. Inpatient pharmacy called no such cream available inpatient. Outpatient recommend Ointment with Urea present. No new topical recommendations needed at this time continue with topical orders in place. Bilateral Lower Leg Etiology: ?Etiology Unknown - Dry Thick scaling intact tissue Wound Bed: No open tissue Drainage / Odor: None Kathleen wound: ? dry thick keratinized hyperpigmented tissue Pain: denies pain and denies itching Goals of Treatment: ? Soften and moisturize tissue Recommendations: 1. Bilateral Lower Legs - [place] with Simona spray allow to soak with warm wet towel on legs. Wash legs, dry. Apply Vaseline to lower legs cover with dry gauze. Change daily. There are no wounds at this time - this is preventative to aid in striping off the dry thick scaling tissue which he is prone to wound development while in place. Re-consult wound care Nurse for wound deterioration or wound changes.
[2023-08-18] MEDS: ondansetron HCL 4 MG/2 ML VIAL IVPUSH (22:57)
[2023-08-19] VITALS: BP 121/68; PULSE 110; RESP 20; TEMP 37.7; O2SAT 92
[2023-08-19] MEDS: Acetaminophen 325 MG TABLET 650 MG PO (00:32)
[2023-08-19] MEDS: Omeprazole 40 MG CAPSULE.DR PO ×2 (05:31→17:14)
[2023-08-19 07:32] VITALS: BP 94/56; PULSE 74; RESP 18; TEMP 36.3; O2SAT 98
[2023-08-19] MEDS: Lactulose 20 GM/30 ML SOLUTION 30 GM PO ×2 (10:10→17:14)
[2023-08-19] MEDS: Sucralfate Oral Suspension 1 GM/10 ML ORAL.SUSP PO ×3 (10:11→17:44)
[2023-08-19] MEDS: Thiamine HCL 100 MG TABLET PO (10:11)
[2023-08-19] MEDS: Furosemide 40 MG TABLET PO (10:11)
[2023-08-19] MEDS: methADONE HCl 20 MG/2 ML ORAL.CONC 40 MG PO (10:12)
[2023-08-19 11:17] VITALS: BP 94/56; PULSE 74; O2SAT 98
--- NOTE | 2023-08-19 11:29 | MHC.CM.PN ---
Addendum entered by Mamta Rivas 08/19/23 11:37: Insurance auth pending. Original Note: [facility] offered pt a bed, pt accepted. Guest dosing in the process of being set up for [facility] in [place], pt can transport there once it is approved. Pt will transport via BLS/ [facility].
--- NOTE | 2023-08-19 13:20 | P.DS_ITS ---
DS: Providers Provider Date of Service: 08/19/23 Date of admission: 08/08/23 13:43 Date of discharge: 08/19/23 Primary care physician: Unknown Physician Consults: 08/08/23 13:43 Addiction Medicine Routine Consulting Provider: Addiction Covering Reason for consultation: substance use 08/08/23 14:02 Consult to Gastroenterology Routine Consulting Provider: Brenda Valadez Reason for consultation: hepatic encephalopathy 08/16/23 16:25 Consult to Wound Care Routine Reason for consultation: LE skin changes Attending physician on discharge: Alcides Verde Discharging clinician: Farncisca Alvarado DS: Diagnosis Discharge Diagnosis (1) Upper GI bleed: Status: Acute (2) Acute respiratory failure: Status: Acute (3) Cirrhosis: Status: Acute (4) Portal vein thrombosis: Status: Acute DS: Summary Hospital Course Hospital Course: From H&P on the day of admission 68-year-old male with history of hypertension, hepatic cirrhosis complicated by pencytopenia and portal vein thrombosis anticoagulated with Lovenox, polysubstance use, GERD presents to the ED at the recommendation of [facility] due to altered mental status. Per [facility], the patient was found lethargic, sitting on the floor next to the bed which is different than his baseline. At baseline he is alert and oriented, ambulatory. The patient is unable to provide history but does open his eyes and state his name when asked but otherwise is disoriented. Denies any complaints. Does endorse inhaled heroin use last night. On arrival, patient has been intermittently tachycardic to 115, vitals otherwise stable. He did briefly desaturate while sleeping into the 80s and was placed on 2 L supplemental O2 but is maintaining oximetry 96- 100% on room air during exam. Hematology studies show increase from baseline WBC to 4.6, likely hemoconcentrated. Stable normocytic anemia and thombocytopenia. Renal function baseline, electrolyte levels normal. Liver function tests baseline, ammonia level 63. Total CK 452. Urinalysis unremarkable. Urine tox screen positive for opiates and fentanyl. Negative for covid, influenza. Head CT negative for any acute intracranial abnormality but shows generalized atrophy and nonspecific white matter disease. Chest x-ray negative for any acute cardiopulmonary abnormality. CT abdomen/pelvis shows small amount of thrombus in the distal SMV near the portal splenic confluence similar to prior exams as well as cirrhotic appearing liver, tips, to plastic bile duct stents, embolization coils and splenomegaly but no ascites. In the ED, given 200g lactulose TX, 1L NS. Shortly after admittion to the medical service for encephalopahy, thepatient had a large episode of claudio hemoptysis with large clots and subsequently was transferred to ICU for intubation to protect airway.He was started on octreotide and PPI. EGD on 08/09/2023 with no active bleeding, but showed adherent clot at site of prior variceal banding, as well as gastric ulcer. Extubated 08/10/2023 and downgrade back to the medical floor 08/12. Acute toxic metabolic encephalopathy due to hepatic encephalopathy Resolved with lactulose. CT head negative for acute intracranial abnormality continue lactulose 30 g t.i.d. Acute upper GI bleed. Status post blood transfusion. Started on IV PPI and octreotide drip. Seen by GI and underwent upper endoscopy by Dr. Valadez on 08/09 and noted to have large 2 cm post banding ulcer with adherent clot at 35 cm, another post pending ulcer with visible vessel at 37 cm hemo spray was applied to post banding ulcers, stomach showed diffuse congestion and erythema consistent with portal hypertensive gastr opathy, small 5 mm healing ulcer was noted in the distal body, duodenum showed normal mucosa. GI recommend Carafate 1 g q.i.d. for 14 days, Protonix 40 mg b.i.d. for 1 month, she recommend to hold Lovenox till undergo repeat EGD in 2-3 weeks to document healing of post banding ulcers as well as variceal obliteration before resuming Lovenox, no NSAIDs, no smoking and no alcohol. He has been tolerating a regular diet and he CBC has remained stable. Needs outpatient follow up with primary GI in the next week, also has biliary stents that need to be removed Decompensated hepatic cirrhosis- complicated by portal/mesenteric vein thrombosis, pancytopenia lactulose as above. resume diuretics. Lovenox discontinued due to hematemesis. Should remain on hold until repeat EGD as above. HTN blood pressures soft, but improved on day of discharge. resume home meds Polysubstance use utox positive for fentanyl, heroin, on methadone being followed by Addiction Team. Received Methadone 40 mg. will follow up outpatient patient was seen by PT who recommended STR. The patient will be transferred to STR in stable condition anticipate less then 30 days stay at SNF Time Attestation Discharge coordination time: Greater than 30 minutes Quality: Safe Use of Opioids Does Pt have an Active Cancer Diagnosis on the Problem List?: No Quality: Stroke Does the patient have a stroke diagnosis?: No Physical Exam Vital Signs: Vital Signs: Last Vital Signs Temp 97.3 F 08/19/23 07:32 Pulse 74 08/19/23 11:17 Resp 18 08/19/23 07:32 BP 94/56 L 08/19/23 11:17 Pulse Ox 98 08/19/23 11:17 O2 Del Method Room Air 08/19/23 07:32 O2 Flow Rate 08/09/23 07:00 FiO2 08/10/23 09:00 BMI result Body Mass Index 30.1 Const: General: cooperative, comfortable, alert and awake Nutritional Appearance: overweight Orientation/consciousness: patient oriented x3 Resp: Effort & Inspection: normal respiratory effort, able to speak in complete sentences, no respiratory distress and no use of accessory muscles Cardio: Rate: regular rate Skin: Other: chronic lower extremity skin changes Neuro: General: patient oriented x3, moves all extremities and CN's II-XI intact bilaterally Discharge Plan Discharge Anticipated Discharge Date/Time: 08/19/23 16:00 Patient Disposition: Xfer SNF Discharge Diagnosis: acute GI bleeding due to post banding ulcers hepatic encephalopathy thrombocytopenia liver cirrhosis polysubstance use Referrals: Physician,Libby J [Primary Care Provider] - 1 Week Brenda Valadez MD [Physician] - 1 Week Discharge Medications: New sucralfate 100 mg/mL Suspension 1 g PO QIDACHS 10 Days Qty: 400 0RF methadone [Methadose] 10 mg/mL Concentrate 40 mg PO DAILY Qty: 30 0RF Rx Instructions: Partial Fill upon patient request. lactulose 20 gram/30 mL Solution 30 g PO TID Qty: 1200 0RF Continued folic acid 1 mg tablet 1 mg PO DAILY Qty: 30 0RF pyridoxine (vitamin B6) 50 mg capsule 50 mg PO DAILY Qty: 30 0RF thiamine HCl (vitamin B1) 100 mg tablet 100 mg PO DAILY Qty: 30 0RF docusate sodium 100 mg Capsule 100 mg PO BID PRN (Reason: Constipation) hydroxyzine HCl 25 mg Tablet 25 mg PO QID PRN (Reason: Anxiety) ferrous sulfate 325 mg (65 mg iron) tablet 325 mg PO DAILY furosemide 40 mg tablet 40 mg PO DAILY Changed pantoprazole [Protonix] 40 mg tablet,delayed release (DR/EC) 40 mg PO BID 30 Days Qty: 60 0RF Held spironolactone 100 mg tablet 100 mg PO QAM Qty: 30 0RF Hold Instructions: resume as BP allows enoxaparin [Lovenox] 150 mg/mL syringe 135 mg subcut Q12H Qty: 54 0RF Hold Instructions: do not take until repeat EGD Discontinued lactulose 10 gram/15 mL (15 mL) solution 15 ml PO TID Qty: 1440 0RF methadone [Methadone Intensol] 10 mg/mL Concentrate 50 mg PO DAILY Xifaxan 550 mg tablet 550 mg PO BID Discharge Orders: Discharge Order (Routine); Ordered 08/19/23 Ordered By: Francisca Alvarado Activity on Discharge: As tolerated Stand Alone Forms: Patient Portal Discharge page Care Plan Goals: see below Health Concerns: Upper GI bleeding due to post banding ulcers, portal hypertensive gastropathy, healing gastric ulcer hepatic encephalopathy Plan of Treatment: Take Carafate 1 gm QID - end date 08/24 continue Pantoprazole 40 BID for 4 weeks, end date 09/05 and then once daily do not take Lovenox until repeat EGD in 2-3 weeks (from 08/09) - call [facility] to schedule dose of lactulose was increased, take as prescribed, goal 2-3 BM daily call to schedule follow up appointment with your primary transportation economics teacher at [facility] in the next week call to schedule a follow up appointment with your primary care provider avoid NSAIDs (aspirin, motrin, ibuprofen and similar medications), smoking and alcohol avoid drug use continue methadone 40 mg daily sprionolactone on hold due to soft bp - resume as indicated recommend follow up labs early next week Assessment: see discharge summary
--- NOTE | 2023-08-19 13:31 | MHC.CM.PN ---
Second IMM given 08/19. Pt is medically cleared for D/C, and insurance auth obtained for pt to go to [facility] today via BLS/[facility] at 4pm. Transportation auth also obtained from [facility].
[2023-08-19 15:28] VITALS: BP 104/56; PULSE 80; RESP 18; TEMP 37; O2SAT 95
== END 2023-08-19 17:57 | disposition skilled nursing facility (03) | DRG 380 ==
LOC: HO.ED 09:19 → HO.EDOVER 14:02 → HO.S3 15:36 → HO.ICU 17:07 → HO.IMC 08-11 18:10
PROVIDERS: Hospitalist; Internal Medicine; Internal Medicine Critical Care Medicine; Internal Medicine Pulmonary Disease; Nurse Practitioner Acute Care; Nurse Practitioner Family; Physician Assistant Medical; Admitting Provider Physician Assistant; Emergency Provider Student in an Organized Health Care Education/Training Program; Visit Provider Physician Assistant Medical
PROC: 0DJ08ZZ Inspection of Upper Intestinal Tract, Via Natural or Artificial Opening Endoscopic (ICD-10-PCS; CPT 43235; principal; 2023-08-09 11:30)
DX: K22.11 Ulcer of esophagus with bleeding (principal); G92.8 Other toxic encephalopathy; I81 Portal vein thrombosis; J96.00 Acute respiratory failure, unspecified whether with hypoxia or hypercapnia; K76.6 Portal hypertension; D61.818 Other pancytopenia; F11.20 Opioid dependence, uncomplicated; D68.4 Acquired coagulation factor deficiency; Z59.01 Sheltered homelessness; I87.2 Venous insufficiency (chronic) (peripheral); I10 Essential (primary) hypertension; K21.9 Gastro-esophageal reflux disease without esophagitis; K76.82 Hepatic encephalopathy; K25.9 Gastric ulcer, unspecified as acute or chronic, without hemorrhage or perforation; K31.89 Other diseases of stomach and duodenum; K74.69 Other cirrhosis of liver; E86.0 Dehydration; Z20.822 Contact with and (suspected) exposure to COVID-19; Z86.19 Personal history of other infectious and parasitic diseases; Z79.01 Long term (current) use of anticoagulants; Z79.899 Other long term (current) drug therapy
CPT/HCPCS: 36415; 70450; 71045; 74177; 80048; 80053; 80307; 81003; 82040; 82140; 82550; 82552; 82803; 83735; 84100; 84484; 85025; 85027; 85610; 85730; 86850; 86900; 86901; 86923; 87502; 87635; 93005; 94002; 94003; 94799; 97116; 97162; 97530; 99285; C1758; C9113; J0696; J1170; J1364; J1940; J2250; J2354; J2405; J2704; J3010; J3360; J3411; J3475; J3480; J7120; P9047; P9073; Q9967

== ENCOUNTER → 2023-08-08 08:24 | Outpatient (BNV) | payer OTHER, SELFPAY | PROVIDERS: Admitting Provider Physician Assistant; Emergency Provider Student in an Organized Health Care Education/Training Program; Visit Provider Internal Medicine | DX: I44.4 Left anterior fascicular block (principal); R94.31 Abnormal electrocardiogram [ECG] [EKG] | CPT/HCPCS: 93010 ==

== ENCOUNTER → 2023-08-08 13:43 | Outpatient (BNV) | payer OTHER, SELFPAY | PROVIDERS: Admitting Provider Physician Assistant; Emergency Provider Student in an Organized Health Care Education/Training Program; Visit Provider Internal Medicine Pulmonary Disease | DX: K76.82 Hepatic encephalopathy (principal); F19.10 Other psychoactive substance abuse, uncomplicated; K92.2 Gastrointestinal hemorrhage, unspecified; Z95.828 Presence of other vascular implants and grafts; I81 Portal vein thrombosis | CPT/HCPCS: 99291 ==

== ENCOUNTER → 2023-08-08 13:43 | Outpatient (BNV) | payer OTHER, SELFPAY | PROVIDERS: Admitting Provider Physician Assistant; Emergency Provider Student in an Organized Health Care Education/Training Program; Visit Provider Physician Assistant | DX: K92.2 Gastrointestinal hemorrhage, unspecified (principal); J96.00 Acute respiratory failure, unspecified whether with hypoxia or hypercapnia; K74.60 Unspecified cirrhosis of liver; I81 Portal vein thrombosis | CPT/HCPCS: 99223; 99231; 99232; 99233; 99238; 99499 ==

== ENCOUNTER → 2023-08-08 13:43 | Outpatient (BNV) | payer OTHER, SELFPAY | PROVIDERS: Admitting Provider Physician Assistant; Emergency Provider Student in an Organized Health Care Education/Training Program; Visit Provider Internal Medicine | DX: K74.60 Unspecified cirrhosis of liver (principal); Z95.828 Presence of other vascular implants and grafts; K92.2 Gastrointestinal hemorrhage, unspecified; I81 Portal vein thrombosis; K76.82 Hepatic encephalopathy; K22.11 Ulcer of esophagus with bleeding | CPT/HCPCS: 43255; 99223 ==

== ENCOUNTER 2023-10-03 09:20 | Emergency (ER) | payer OTHER, SELFPAY ==
--- NOTE | ~2023-10-03 | US_ITS ---
EXAMINATION: US SCROTUM CLINICAL INFORMATION: Pain and swelling. COMPARISON: None available. TECHNIQUE: A sonogram of the scrotum was performed assessing cao-scale appearance and color Doppler flow. Spectral Doppler analysis of the arterial and venous flow were performed in the testes bilaterally. FINDINGS: RIGHT: Right testicle measures 4.6 x 2.9 x 2.0 cm, volume 13.8 mL. No focal testicular parenchymal lesions are visualized. Spectral Doppler analysis of the arterial and venous flow is normal in the right testis. Right epididymal head is normal in size. Complex hydrocele fluid/edema in the scrotum. No right varicocele is seen. Right epididymal Doppler flow is normal. There is diffuse overlying skin edema. LEFT: Left testicle measures 3.7 x 2.6 x 2.3 cm, volume 11.6 mL. No focal testicular parenchymal lesions are visualized. Spectral Doppler analysis of the arterial and venous flow is normal in the left testis. Diffuse overlying skin edema Left epididymal head is normal in size. No varicocele is seen. Left epididymal Doppler flow is normal. There is diffuse skin edema and complex hydrocele. US/US scrotum doppler IMPRESSION: Diffuse scrotal skin edema and complex hydroceles. No evidence for testicular torsion.
--- NOTE | ~2023-10-03 | US_ITS ---
EXAMINATION: US SCROTUM CLINICAL INFORMATION: Pain and swelling. COMPARISON: None available. TECHNIQUE: A sonogram of the scrotum was performed assessing cao-scale appearance and color Doppler flow. Spectral Doppler analysis of the arterial and venous flow were performed in the testes bilaterally. FINDINGS: RIGHT: Right testicle measures 4.6 x 2.9 x 2.0 cm, volume 13.8 mL. No focal testicular parenchymal lesions are visualized. Spectral Doppler analysis of the arterial and venous flow is normal in the right testis. Right epididymal head is normal in size. Complex hydrocele fluid/edema in the scrotum. No right varicocele is seen. Right epididymal Doppler flow is normal. There is diffuse overlying skin edema. LEFT: Left testicle measures 3.7 x 2.6 x 2.3 cm, volume 11.6 mL. No focal testicular parenchymal lesions are visualized. Spectral Doppler analysis of the arterial and venous flow is normal in the left testis. Diffuse overlying skin edema Left epididymal head is normal in size. No varicocele is seen. Left epididymal Doppler flow is normal. There is diffuse skin edema and complex hydrocele. US/US scrotum IMPRESSION: Diffuse scrotal skin edema and complex hydroceles. No evidence for testicular torsion.
--- NOTE | ~2023-10-03 | US_ITS ---
EXAMINATION: US VENOUS ULTRASOUND WITH DOPPLER LOWER EXTREMITY, BILATERAL CLINICAL INFORMATION: Worsening swelling. COMPARISON: None available. TECHNIQUE: Ultrasound of the deep veins is performed from the hip to the calf with compression sonography and color and pulse Doppler assessment. Spectral analysis with color-flow imaging is performed. FINDINGS: RIGHT: There is normal venous compression and respiratory variation and augmented flow. The visualized common femoral vein, superficial femoral vein, profunda femoral vein, popliteal vein, and the trifurcation region shows no evidence of deep venous thrombosis. There is no significant popliteal fossa cyst. LEFT: There is normal venous compression and respiratory variation and augmented flow. The visualized common femoral vein, superficial femoral vein, profunda femoral vein, popliteal vein, and the trifurcation region shows no evidence of deep venous thrombosis. There is no significant popliteal fossa cyst. If the patient's symptoms persist, followup ultrasound in 5 days 7 days might be of value to exclude proximal propagation from a non-visualized calf vein. Incidental finding was made of a Estrada's cyst in the left side 8.6 x 2.1 x 2.8 cm. Included in the images scattered lymph nodes. US/US venous duplex LE BI IMPRESSION: No DVT demonstrated in the both lower lower extremity. Exam limited, patient's leg edema limited compression. Estrada's cyst left.
[2023-10-03 09:31] VITALS: BP 120/71; BP 140/82; PULSE 76; PULSE 92; RESP 16; TEMP 36.9; O2SAT 98; BMI 37.8
--- NOTE | 2023-10-03 09:31 | ED_ITS ---
HPI - General Adult General Chief complaint: General Medical Stated complaint: LEG SWELLING X3DAYS FROM HOTEL PER EMS Time Seen by Provider: 10/03/23 09:23 Source: patient, EMS and old records reviewed Mode of arrival: EMS Limitations: no limitations History of Present Illness HPI narrative: 68-year-old male with a history of polysubstance abuse, alcoholic cirrhosis, ongoing alcohol use, history of portal vein thrombosis no longer on Lovenox, history of upper GI bleed with gastric ulcers, hx esophageal varices, history of hepatic encephalopathy, pancytopenia, GERD who presents to the ER from the hotel where he is residing for evaluation of 3 days of testicular swelling and pain. He also reports increased bilateral leg pain and swelling for the last several days, left worse than right. He states he had acute onset of testicular swelling and pain. It is uncomfortable and feels full. He has been having difficulty urinating. He denies any trauma or injury. He denies abdominal pain, nausea, vomiting, diarrhea. He denies dysuria or hematuria. He reports a painful rash in his inguinal area as well, not sure how long it has been there. He states he has had left greater than right leg pain and swelling for several days. He denies any redness or warmth, his legs have chronic venous stasis changes at baseline. He states it hurts to walk. No chest pain or SOB. He did not follow up with GI at [facility] for EGD and has remained off of Lovenox. MD complaint: testicular pain/swelling, leg pain/swelling Onset (ago): day(s) Location: genitals, left, right and lower extremity Radiation: distal Severity: severe Quality: aching Pain Consistency: constant Relieving factors: immobilization and rest Exacerbating factors: movement Treatments prior to arrival: none Related Data Home Medications Medication Instructions Recorded Confirmed ferrous sulfate 325 mg (65 mg 325 mg PO DAILY 08/28/20 08/08/23 iron) tablet furosemide 40 mg tablet 40 mg PO DAILY 08/28/20 08/08/23 docusate sodium 100 mg capsule 100 mg PO BID PRN Constipation 08/08/23 08/08/23 hydroxyzine HCl 25 mg tablet 25 mg PO QID PRN Anxiety 08/08/23 08/08/23 Previous Rx's Medication Instructions Recorded enoxaparin 150 mg/mL subcutaneous 135 mg (0.9 mL) subcut Q12H #54 mL 07/26/23 syringe (Lovenox) folic acid 1 mg tablet 1 mg PO DAILY #30 tabs 07/26/23 pyridoxine (vitamin B6) 50 mg 50 mg PO DAILY #30 caps 07/26/23 capsule spironolactone 100 mg tablet 100 mg PO QAM #30 tabs 07/26/23 thiamine HCl (vitamin B1) 100 mg 100 mg PO DAILY #30 tabs 07/26/23 tablet lactulose 20 gram/30 mL oral 30 g (45 mL) PO TID #1,200 mL 08/14/23 solution methadone 10 mg/mL oral 40 mg (4 mL) PO DAILY #30 mL 08/14/23 concentrate (Methadose) pantoprazole 40 mg tablet,delayed 40 mg PO BID 30 days #60 tabs 08/14/23 release (Protonix) sucralfate 100 mg/mL oral 1 g (10 mL) PO QIDACHS 10 days 08/14/23 suspension #400 mL nystatin 100,000 unit/gram topical 1 appl topical BID #30 grams 10/03/23 ointment Allergies Allergy/AdvReac Type Severity Reaction Status Date / Time No Known Allergies Allergy Verified 07/26/23 11:00 [No Known Allergies*] Review of Systems 2 Review of Systems: Yes all other systems are reviewed and are negative [facility] Past Medical History Medical History (Updated 10/03/23 @ 14:07 by JAVIER Sandoval) Polysubstance abuse Splenomegaly Pancytopenia Portal vein thrombosis Cirrhosis HTN (hypertension) Surgical History (Updated 08/27/23 @ 00:03 by [place]) S/P TIPS (transjugular intrahepatic portosystemic shunt) Social History Social History Household Members: Unknown / Unable to assess Housing: Unknown / Unable to assess Unable to assess alcohol history related to: Unable to respond Alcohol intake: current Comment: 1:1 sitter Patient Tobacco Use Status: Tobacco use Unknown Smoked in Last 30 Days: No Use of substances other than those prescribed or required for medical reasons: Yes Substance Use Type: Heroin Substance Use Frequency: Daily Last Used Substance: Days (ago) Advance Directives: No Advance Directives Information Provided: No service: No Current occupational status: retired Current occupation: rt handed Physical Exam ED Vital Signs: Vital Signs - 24 hr 10/03/23 13:47 10/04/23 05:03 Temperature 98.4 F Pulse Rate 75 70 Respiratory Rate 16 18 Blood Pressure 152/83 H 125/78 Pulse Oximetry 98 94 Oxygen Delivery Method Room Air Room Air BMI result Body Mass Index 37.8 Appearance: Alert. Oriented X3. No acute distress. Head: normocephalic, atraumatic. Eyes: Pupils equal, round and reactive to light. ENT: Pharynx normal. No tonsillar swelling or exudate. Neck: Normal inspection. Neck supple. CVS: Normal heart rate and rhythm. Pulses normal. Respiratory: No respiratory distress. Breath sounds normal. Abdomen: Soft and nontender. +BS x4 : moderate testicular swelling, generalized and tender throughout. +testicular tenderness bilaterally. erythematous, beefy red rash in bilateral inguinal area and on left scrotal area Skin: Skin warm and dry. Normal skin color. Normal skin turgor. Extremities: bilateral LE edema with chronic venous stasis changes of the bilateral lower legs with hyperpigmentation. Neuro/psych: Oriented X 3. No motor deficit. No sensory deficit. CN II-XII intact. Normal speech and cognition. Course Reevaluation(s) Reevaluation #1: Patient placed in physician observation. He has been medically cleared. He has testicular swelling from hydroceles. Use advised elevation for management. He was started on nystatin for fungal rash in the inguinal region. He states his lower extremity swelling is causing him difficulty in ambulation. He feels weak. He would like to stay the night in the emergency room, get seen by Physical therapy for possible acute rehab placement. Will continue to monitor Time: 15:46 Reevaluation #2: Vital signs have remained stable. No acute overnight events per nursing notes. Med reconciliation not yet completed, will continue to monitor. Physician observation continued pending physical therapy/case management consult and disposition. Of note- in social history, it is noted that patient has 1:1 sitter however this is not accurate. patient has not required sitter while in the ED and is neither HI or SI. Time: 07:02 Medications Administered Discontinued Medications Generic Name Dose Route Start Last Admin Trade Name Freq PRN Reason Stop Dose Admin Methadone HCl 40 mg 10/04/23 07:28 10/04/23 08:09 Methadone Hcl 20 Mg/2 Ml Oral.Conc PO 10/04/23 07:29 40 mg ONCE ONE Administration Nystatin 1 appl 10/03/23 09:58 10/03/23 13:48 Nystatin Powder 15 Gm Bottle TOPICAL 10/03/23 09:59 1 appl ONCE ONE Administration Protocol Medical Decision Making Medical Decision Making MDM Narrative: 68-year-old male with a history of polysubstance abuse, alcoholic cirrhosis, ongoing alcohol use, history of portal vein thrombosis no longer on Lovenox, history of upper GI bleed with gastric ulcers, hx esophageal varices, history of hepatic encephalopathy, pancytopenia, GERD who presents to the ER from the hotel where he is residing for evaluation of 3 days of testicular swelling and pain. He also reports increased bilateral leg pain and swelling for the last several days, left worse than right. Exam is consistent with bilateral hydroceles with a superimposed fungal rash. He has a history of decompensated cirrhosis with ascites, this is most likely the etiology of his testicular pain. He is unkempt with poor hygiene, foul- smelling urine. Bladder scan for 179. He was able to urinate and is not retaining urine. No evidence of Brittney's gangrene or cellulitis. He has not diabetic. Patient physician observation for PT evaluation and case management consultation. Differential Diagnosis Differential Diagnoses: The differential diagnosis associated with the presentation includes Hydrocele, testicular torsion, epididymitis, Fourner's gangrene, cellulitis, abscess Lower extremity edema most likely due to chronic venous stasis, less likely DVT, cellulitis, arterial disease Admission/Observation Consideration of admission/observation: Escalation of care including admission/observation considered Lab Data [facility] Lab Attestation statement: I reviewed the patient's lab results. stable pancytopenia 10/03/23 10:26 10/03/23 10:26 Labs: Lab Results 10/03/23 10/03/23 10/04/23 Range/Units 10:26 11:38 08:30 WBC 2.7 L (4.8-10.8) X10*3/uL RBC 3.44 L D (4.60-5.80) X10*6/uL Hgb 10.8 L D (14.0-18.0) g/dl Hct 32.5 L D (42.0-52.0) % MCV 94.5 (80.0-98.0) fL MCH 31.4 (27.0-33.0) pg MCHC 33.2 (31.0-36.0) g/dl RDW 14.8 (11.0-16.0) % Plt Count 79 L (160-400) X10*3/uL MPV 9.8 (9.4-12.4) fL Immature Gran % (Auto) 0.4 (0.0-0.4) % Neut % (Auto) 67.1 (45-73) % Lymph % (Auto) 17.2 L (20-40) % Knott % (Auto) 7.3 (2-11) % Eos % (Auto) 7.3 H (0-4) % Baso % (Auto) 0.7 (0-2) % Lymph # (Auto) 0.5 L (1.2-4.9) X10*3/uL Knott # (Auto) 0.2 (0.1-1.2) X10*3/uL Eos # (Auto) 0.2 (0.0-0.4) X10*3/uL Baso # (Auto) 0.0 (0.0-0.2) X10*3/uL Abs Immat Gran (auto) 0.01 (0.00-0.03) X10*3/uL Absolute Neuts (auto) 1.8 L (2.0-8.3) x10*3/uL Absolute Nucleated RBC 0.000 (0.0-0.012) X10*3/uL Nucleated RBC % (auto) 0.0 (0.0-0.2) /100WBC Sodium 139 (135-145) mmol/L Potassium 3.9 (3.3-5.1) mmol/L Chloride 108 (96-108) mmol/L Carbon Dioxide 27 (22-29) mmol/L Anion Gap 8 L (12-20) BUN 8 L (9-16) mg/dL Creatinine 0.71 (0.5-1.4) mg/dL Estim Creat Clear Calc 107.7 Estimated GFR > 60 Random Glucose 151 H (60-115) mg/dL Calcium 8.5 (8.4-10.2) mg/dL Magnesium 1.9 (1.6-2.6) mg/dL Total Bilirubin 1.0 (0.0-1.0) mg/dL Direct Bilirubin 0.4 (0.0-0.5) mg/dL AST 36 (5-37) U/L ALT 29 (0-40) U/L Alkaline Phosphatase 94 (39-117) U/L B-Natriuretic Peptide 66 (<100) pg/mL Total Protein 6.3 L (6.5-8.0) g/dL Albumin 3.0 L (3.5-5.0) g/dL Urine Color Yellow Urine Appearance Clear Urine pH 7.5 (5.0-9.0) Ur Specific [place] 1.010 (1.005-1.025) Urine Protein Negative (Neg-Trace) mg/dL Urine Glucose (UA) 100 H (Negative) mg/dL Urine Ketones Negative (Negative) mg/dL Urine Blood Negative (Negative) Urine Nitrite Negative (Negative) Ur Leukocyte Esterase Trace H (Negative) Urine RBC 0-2 (0-2) /HPF Urine WBC 0-5 (0-5) /HPF Ur Squamous Epith Cells 0-2 (0-2) /HPF Urine Bacteria None Seen (None Seen) Hyaline Casts 0-2 (0-2) /LPF Urine Opiates Screen POSITIVE H (Not Detect) Urine Fentanyl Screen POSITIVE H (Not Detect) Ur Barbiturates Screen Not Detected (Not Detect) Ur Phencyclidine Scrn Not Detected (Not Detect) Ur Amphetamines Screen Not Detected (Not Detect) U Benzodiazepines Scrn Not Detected (Not Detect) Urine Cocaine Screen Not Detected (Not Detect) U Marijuana (THC) Screen Not Detected (Not Detect) Ethyl Alcohol < 10 mg/dL COVID-19 (TESS) Negative (Negative) COVID-19 Clin Com See Note Independent Interpretation I performed an independent interpretation of an: Ultrasound Interpretation: Ultrasound of the lower extremities does not reveal any acute DVT Radiology Impression Discussion of test interpretation with radiology: I have reviewed the radiologist's reading. Radiologist Impression: US/US venous duplex LE BI IMPRESSION: No DVT demonstrated in the both lower lower extremity. Exam limited, patient's leg edema limited compression. Estrada's cyst left. US/US scrotum IMPRESSION: Diffuse scrotal skin edema and complex hydroceles. No evidence for testicular torsion. Independent Historian Clinical information obtained from an independent historian. History obtained from or confirmed by: EMS External Record Review External record reviewed: Inpatient record, Office record, Outpatient record, Prior outpatient labs and Prior outpatient radiology Prescription Management I considered prescription management with: Pain Medication and Antibiotic Chronic Conditions Patient?s care impacted by: Other (Cirrhosis, polysubstance abuse, PVD) Social Determinants Patient?s care significantly limited by Social Determinants of Health including: Alcoholism and drug addiction in family, Problems related to primary support group and Other Social Determinant of Health Critical Care Time Critical Care Time Critical Care Time: No Discharge Plan Discharge Clinical Impression: Bilateral hydrocele, Yeast dermatitis, Chronic venous stasis dermatitis Patient Disposition: Still a Patient Instructions: Hydrocele (ED), Skin Yeast Infection (ED) Prescriptions: New nystatin 100,000 unit/gram ointment 1 appl topical BID Qty: 30 2RF No Action folic acid 1 mg tablet 1 mg PO DAILY Qty: 30 0RF pyridoxine (vitamin B6) 50 mg capsule 50 mg PO DAILY Qty: 30 0RF spironolactone 100 mg tablet 100 mg PO QAM Qty: 30 0RF Hold Instructions: resume as BP allows thiamine HCl (vitamin B1) 100 mg tablet 100 mg PO DAILY Qty: 30 0RF enoxaparin [Lovenox] 150 mg/mL syringe 135 mg subcut Q12H Qty: 54 0RF Hold Instructions: do not take until repeat EGD docusate sodium 100 mg Capsule 100 mg PO BID PRN (Reason: Constipation) hydroxyzine HCl 25 mg Tablet 25 mg PO QID PRN (Reason: Anxiety) sucralfate 100 mg/mL Suspension 1 g PO QIDACHS 10 Days Qty: 400 0RF methadone [Methadose] 10 mg/mL Concentrate 40 mg PO DAILY Qty: 30 0RF Rx Instructions: Partial Fill upon patient request. pantoprazole [Protonix] 40 mg tablet,delayed release (DR/EC) 40 mg PO BID 30 Days Qty: 60 0RF lactulose 20 gram/30 mL Solution 30 g PO TID Qty: 1200 0RF ferrous sulfate 325 mg (65 mg iron) tablet 325 mg PO DAILY furosemide 40 mg tablet 40 mg PO DAILY Referrals: [facility] [Provider Group] (bilateral hydroceles)
--- OUTSIDE RECORDS SUMMARY | 2023-10-03 09:46 | XMS_ITS | Continuity of Care Document ---
Author Name Unknown Organization [facility] ter Address [address] [place] [id number] Care Team Providers Care Stripper Color Name Role Phone Akua BHATT, Michelle Avalos Primary Care Physician [phone] [facility] [id number] Date(s): 07/11/23 - 07/17/[address] [address]- Encounter Diagnosis Portal vein thrombosis(Final) - 07/11/23 Splenic vein thrombosis(Final) - 07/11/23 Discharge Disposition: A-Transfer VNA/Home Health Attending Physician: Gris Edward MD Admitting Physician: James Zavala MD Referring Physician: Not on Staff, Referring MD Allergies, Adverse Reactions, Alerts Substance Reaction Severity Status traZODone Active Immunizations Given and Recorded Vaccine Date Status Refusal Reason tetanus/diphtheria/pertussis, acel(Tdap) 06/04/19 Given Medications bisacodyl 10 mg rectal suppository 1 supp = 10 mg, Rectally, 2 times a day, PRN Constipation, 0 Refills, Maintenance, 12/19/18 20:59:05 EDT, Suppository Start Date: 12/19/18 Status: Ordered ciprofloxacin 500 mg oral tablet 1 tablet = 500 mg, By Mouth, Every 12 hours, for 3 days, # 6 tablet, 0 Refills, Acute 07/20/23 8:59:00 EST, 07/17/23 8:59:00 EST, Tablet, [facility], Partial fill upon patient request if the prescription is for a schedule II opioid drug.... Start Date: 07/17/23 Stop Date: 07/20/23 Status: Ordered docusate sodium 150 mg/15 ml oral liquid 10 mL = 100 mg, By Mouth, 2 times a day, PRN Constipation, 0 Refills, Maintenance, 12/19/18 20:59:17 EDT, Liquid Start Date: 12/19/18 Status: Ordered ferrous sulfate 325 mg oral enteric coated tablet 325 mg, 1, tablet, By Mouth, Daily, # 90 tablet, Refills 0, Maintenance, 10/31/17 7:51:35 EDT Start Date: 10/31/17 Status: Ordered folic acid 1 mg oral tablet 1 mg, By Mouth, Daily, Refills 0, Maintenance, 12/19/18 20:59:21 EDT Start Date: 12/19/18 Status: Ordered furosemide 40 mg oral tablet 40 mg, 1, tablet, By Mouth, Daily, # 30 tablet, Refills 0, Tot. Refills 0, Maintenance, 07/17/23 9:01:00 EST, Route to Pharmacy Electronically, [facility], Partial fill upon patient request if the prescription is for a schedule II opioid... Start Date: 07/17/23 Status: Ordered furosemide 40 mg oral tablet 40 mg, 1, tablet, By Mouth, 2 times a day, Maintenance, 08/19/16 12:15:11 EST Start Date: 08/19/16 Status: Ordered hydrOXYzine hydrochloride 25 mg oral tablet 1 tablet = 25 mg, By Mouth, 4 times a day, PRN for anxiety, # 40 tablet, 0 Refills, Maintenance, 09/11/20 0:57:00 EST, Tablet, Partial fill upon patient request if the prescription is for a schedule II opioid drug. Start Date: 09/11/20 Status: Ordered lactulose 10 gm/15 ml oral syrup 15 mL = 10 Gm, By Mouth, 3 times a day, # 1,350 mL, 0 Refills, Maintenance, 07/17/23 9:01:00 EST, Syrup, [facility], Partial fill upon patient request if the prescription is for a schedule II opioid drug., 15 mL By Mouth 3 times a day, 1... Start Date: 07/17/23 Status: Ordered Methadone Tablet = 50 mg, By Mouth, Daily, 0 Refills, Maintenance, 07/07/15 15:19:33 EST Start Date: 07/07/15 Status: Ordered Methadone Tablet 50 mg, Tablet, By Mouth, dose was verified, takes 50 mg, 07/17/23 9:00:00 EST Start Date: 07/17/23 Stop Date: 07/17/23 Status: Completed pantoprazole 40 mg oral delayed release tablet 1 tablet = 40 mg, By Mouth, 2 times a day, # 60 tablet, 0 Refills, Maintenance, 07/17/23 8:57:00 EST, EC Tablet, 168, cm, 07/17/23 8:26:00 EST, Height, 117.5, kg, 07/13/23 20:06:00 EST, Dry Weight Start Date: 07/17/23 Status: Ordered pyridoxine 50 mg oral tablet 50 mg, By Mouth, Daily, # 30 tablet, Refills 0, Tot. Refills 0, Maintenance, 07/17/23 9:03:00 EST, Route to Pharmacy Electronically, [facility], Partial fill upon patient request if theprescription is for a schedule II opioid drug., 168... Start Date: 07/17/23 Status: Ordered rifAXIMin 550 mg oral tablet 1 tablet = 550 mg, By Mouth, 2 times a day, # 60 tablet, 0 Refills, Maintenance, 07/17/23 9:02:00 EST, Tablet, [facility], Partial fill upon patient request if the prescription is for aschedule II opioid drug., 168, cm, 07/17/23 8:26:00... Start Date: 07/17/23 Status: Ordered spironolactone 100 mg oral tablet 100 mg, 1, tablet, By Mouth, Daily, # 30 tablet, Refills 0, Tot. Refills 0, Maintenance, 07/17/23 9:02:00 EST, Route to Pharmacy Electronically, [facility], Partial fill upon patient request if the prescription is for a schedule II opioi... Start Date: 07/17/23 Status: Ordered thiamine 100 mg oral tablet 100 mg, By Mouth, Daily, Refills 0, Maintenance, 12/19/18 20:59:42 EDT Start Date: 12/19/18 Status: Ordered vancomycin 125 mg oral capsule 1 capsule = 125 mg, By Mouth, Daily, for 10 days, # 10 capsule, 0 Refills, Acute 07/27/23 8:59:00 EST, 07/17/23 8:59:00 EST, Capsule, [facility], Partial fill upon patient request if the prescription is for a schedule II opioid drug., 16... Start Date: 07/17/23 Stop Date: 07/27/23 Status: Ordered Vitamin B12 1000 mcg oral tablet 1 tablet = 1,000 mcg, By Mouth, Daily, # 90 tablet, 0 Refills, Maintenance, 10/31/17 7:51:48 EDT, Tablet Start Date: 10/31/17 Status: Ordered Vitamin D 46487 iu oral capsule 50,000 International_Units, 1, capsule, By Mouth, Every week, Refills 0, Maintenance, 10/31/17 7:51:00 EDT Start Date: 10/31/17 Status: Ordered Problem List Condition Confirmation Course Effective Dates Status H ealth Status Informant Hepatic cirrhosis due to chronic hepatitis C infection Confirmed Active Essential hypertension Confirmed Active History of transjugular intrahepatic portosystemic shunt Confirmed Active History of alcohol abuse Confirmed Active History of small bowel obstruction Confirmed Active History of hepatitis C virus infection s/p ledipasvir/sofosbuvi r in 2016 Confirmed Active Ventral hernia with recurrent incarceration and small bowel obstruction Confirmed Active Long-term current use of methadone for opiate dependence Confirmed Active Portal hypertension Confirmed Active Portal vein thrombosis Confirmed Active Severe obesity Confirmed Active Tobacco dependence Confirmed Active Procedures Procedure Date Related Diagnosis Body Site Status Esophagogastroduodenoscopy a nd banding of esophageal varices 07/12/23 Completed Results Radiology Reports * Exam Date Time Procedure Performing Provider Status 07/16/23 1:42 PM IR Revision of TIPSS Auth (Verified) Notes: (IR Revision of TIPSS) Reason For Exam: Doppler showed decreased velocity in portal vein prox to TIPS and main portal vein prox to TIPS;Other: IR Revision of TIPSS Patient: MERLIN ALVAREZ Study Date: 07/16/2023 Performing: Carmencita Schultz MD Referring: : [id number] Age: 68 Gender: MALE Pre-procedure diagnosis and Indication: Hematemesis, cirrhosis, SMV thrombosis, elevated velocities in portosystemic shunt (TIPS) on duplex sonogram. Procedure: The right side of the neck was prepped and draped in standard fashion. The jugular vein was cannulated using ultrasound guidance after acquisition of permanent images. A 6 Romansh Giorgio sheath was placed. A guidewire and Kumpe catheter were used to access the portosystemic shunt. Pullback pressure measurements were obtained from the portal vein, the mid TIPS, the hepatic vein and of the TIPS and the right atrium. Portal venography was performed with the sheath in the splenic vein. Based on the pressure gradients, the decision was made to revise the TIPS. The indwelling stent graft was plastied using a 10mm x 60mm Drift ballon. A 10 mm x 57 mm Visi-Pro stent was deployed from the mid TIPS across the hepatic vein. Repeat pullback pressures were obtained. A solitary posterior gastric vein varix was selected using the Kumpe catheter and embolized with a single 6 mm x 14 cm Kelly shunt. The portosystemic shunt was then redilated using a 10 x 60 mm Drift balloon. Repeat pressure measurements were obtained from the portal vein, mid shunt, and right atrium. Completion portal venography was performed. The sheath was removed and hemostasis obtained using manual compression. Skin adhesive was applied at the dermatotomy. Findings: The portosystemic shunt is patent, with mild narrowing noted in the hepatic vein upstream of the central end of the stent graft. Initial pressure obtained were as follows (mmHg): Portal vein 29, portal vein end of the shunt 27, mid shunt 24, hepatic vein end of the shunt 13, right atrium 5 - portosystemic gradient of 24mmHg. After embolization of a solitary posterior gastric vein varix extending to the gastroesophageal junction and subsequent plasty of the entire shunt, the portal systemic gradients dropped a little further. The portal vein went down to 23 mmHg, the mid shunt was 15 mmHg and the right atrial pressure remained elevated at 11 mmHg (PSG of 12mmHg). After deployment of the stent and plasty of the entire shunt, the portosystemic gradient dropped further to 12mmHg ( portal vein remaining 23 mmHg, right atrial pressure 11 mmHg). Numerous collaterals noted in the mid abdomen around the occluded central SMV compatible with cavernous transformation. Embolization coils in the spleen and about the stomach. IMPRESSION: Patent TIPS with stenosis in the mid aspect. Initial portosystemic gradient up to 24 mmHg, improved to 12mmHg after [place] [address] Recommendations: Surveillance duplex sonography Q6 months. Fluoroscopy time and dose Total Fluoro Time: 29.9 mins Total dose 788 mGy Total DAP 19797.00 - ?Gy/m2 Contrast used Contrast used: Omnipaque_300 120 ml's Local Anesthetic Lidocaine 1% 10 ml's SQ Moderate Sedation Agent Dose Route Time By Fentanyl 50 mcg IV 14:14:35 SHERLYN Versed 1 mg IV 14:14:43 SHERLYN Fentanyl 25 mcg IV 14:54:02 SHERLYN Fentanyl 50 mcg IV 15:09:40 SHERLYN Fentanyl 50 mcg IV 15:40:53 SHERLYN Versed 1 mg IV 15:40:59 SHERLYN Signed By Carmencita Schultz MD On 07/16/2023 16:33:17 Carmencita Schultz MD Dictated By: Carmencita Schultz MD Dictated Date/Time: 07/16/23 1:42 pm Reviewed By: Carmencita Schultz MD Signed By: Carmencita Schultz MD Signed Date/Time: 07/16/23 1:42 pm Transcribed By: LINA Transcribed Date/Time: 07/16/23 1:42 pm * Exam Date Time Procedure Performing Provider Status 07/14/23 11:50 AM US Abdominal Doppler Comp Sanjana Madrid; Auth (Verified) Notes: (US Abdominal Doppler Comp) Reason For Exam: thrombosis within the tips;Other: RESULT: US Abdominal Doppler Comp US Abdominal Doppler Comp Reason: Thrombosis on CT; Clinical Question(s): Thrombosis within the TIPS; TIPS evaluation. TECHNIQUE: Color flow and duplex Doppler analysis of abdominal vasculature. COMPARISON: CT Angio Abdomen and Pelvis 07/11/2023. FINDINGS: The examination is overall limited due to overlying bowel gas and limited acoustic windows. Vascular Findings: Arteries: Hepatic arteries: Arterial waveforms in the visualized hepatic arteries are normal. Hepatic artery angle-corrected velocity: 60.1 cm/sec. Hepatic artery resistive index: 0.7 (Normal range: 0.55-0.7). Veins: Main portal vein: Patent with expected hepatopetal flow. The region of the previously described thrombus is not well-visualized. Possible nonocclusive thrombus within the main portal vein visualized (image [id number] and [id number]). Right portal vein: Obscured by TIPS. Left portal vein: Not visualized. Hepatic veins: The left hepatic vein is patent with appropriate hepatofugal flow. The right and middle hepatic veins are not visualized. Inferior vena cava: IVC is patent with appropriate directional flow. Splenic vein: Splenic vein is patent with appropriate hepatopetal direction of flow. The thrombus described on prior CT is not well-visualized sonographically. Spleen length: 18.8 cm. TIPS evaluation - peak velocities*: Main portal vein: 18.7 cm/sec TIPS portal-vein end: 50.8 cm/sec Mid-TIPS: 264.6 cm/sec TIPS hepatic vein end: 143.7 cm/sec *Reference - Normal range for main portal vein velocity proximal to TIPS: 30-40 cm/sec. Normal range for TIPS velocities: 90-190 cm/sec with gradients less than 50 cm/sec from point to point or from study to study. Criteria for stenosis: In stent velocities less than 60 cm/sec, gradients of more than 50 cm/sec, or flow direction changes in portal veins. IMPRESSION: Elevated velocity within the midportion of the TIPS. Decreased velocity within the portal vein end of the TIPS and the main portal vein proximal to the TIPS. Gradients between segments within the TIPS are greater than 50 cm/s. Findings may be related to proximal thrombus as described on prior CT ormay represent stenosis versus thrombosis of the TIPS graft. Previously described thrombus in the main portal vein and splenic vein on CT is not well-visualizedsonographically. Overall limited study with nonvisualization of the left portal vein and right and middle hepatic veins. WSN: [id number] Ordering Physician: Vitaliy Crystal Dictated By: Haroldo Pino MD Dictated Date/Time: 07/14/23 1:20 pm Reviewed By: Haroldo Pino MD Signed By: Haroldo Pino MD Signed Date/Time: 07/14/23 1:20 pm Transcribed By: SULY Transcribed Date/Time: 07/14/23 1:08 pm * Exam Date Time Procedure Performing Provider Status 07/11/23 1:[address] Angio Abdomen and Pelvis Robbie Keane; Colleen (Verified) Notes: (CT Angio Abdomen and Pelvis) Reason For Exam: Bloody vomit;Other: RESULT: CT Angio Abdomen and Pelvis CT Angio Abdomen and Pelvis INDICATION: Pt with c o nausea and vomiting x 1 day. Per Family, pt has had blood in his vomit. Pt denies pain, states he last vomited 20 minutes prior to arrival.; Reason: Other:; Bloody vomit; Clinical Question(s): Other:; Intestinal Bleeding; Order Comment: , Other: COMPARISON: Ultrasound abdomen 01/07/2020. Outside images 10/19/2019 and multiple priors. TECHNIQUE: Unenhanced axial images were obtained from diaphragm through the pelvis before, during (arterial) and after (portal venous) the intravenous administration of iodinated contrast. 100 cc of Omnipaque 300 was administered intravenously. Sagittal and coronal maximum intensity projection (MIP) images were reconstructed and rendered in both arterial and venous phases. Weight-based protocol using automatic tube modulation was used to optimize exposure parameters. RADIATION DOSE PARAMETERS: VASCULAR FINDINGS: No evidence of active GI bleeding. Abdominal aorta: Mild atherosclerotic calcifications. No aortic aneurysm or dissection. Celiac axis: Patent. Superior mesenteric artery: Patent. Right renal artery: Patent. Left renal artery: Patent. Inferior mesenteric artery: Patent. Right common iliac artery: Patent. Right internal iliac artery: Patent. Right external iliac artery: Patent. Right common femoral artery: Patent. Visualized right superficial and deep femoral arteries: Patent. Left common iliac artery: Patent. Left internal iliac artery: Patent. Left external iliac artery: Patent. Left common femoral artery: Patent. Visualized left superficial and deep femoral arteries: Patent. IVC and hepatic veins: Patent. Portal vein: TIPS changes. Partial thrombosis of the portal vein medial to the proximal end of the TIPS (series 305:46), and extending into the proximal superior mesenteric vein (series 305:55). Thisappears to have progressed as compared to study dated 10/19/2019, when only a small clot was noted. Splenic vein: Partially occlusive thrombus of the splenic vein near the splenic hilum (series 305:58). Superior mesenteric vein: Persistent partially occlusive portal vein thrombus extends into the proximal superior mesenteric vein, visualized tributaries appear patent. Inferior mesenteric vein: Patent, but appears to join the SMV near the site of thrombosis (series 305:55). Iliac and femoral veins: Patent. Extensive upper abdominal collaterals including perigastric and splenorenal. Numerous distal portalvenous branches leading up to small bowel loops are dilated and tortuous, new from prior study in 2019. NONVASCULAR FINDINGS: Chair Lift Operator View Findings, Lines and Tubes: None. Visualized Chest: Mild dependent atelectasis. No pleural effusion. Mild cardiomegaly. No pericardial effusion. Diaphragm: Normal. Liver: Cirrhotic. No definite focal lesions. Gallbladder: Multiple small gallstones. A biliary stent extends from the gallbladder to the duodenum. Bile ducts: No bile duct dilation. A stent extends from the common duct near the tariq hepatis to the duodenum. No evidence of pneumobilia. Spleen: Splenomegaly currently measuring 17.6 cm in maximum dimension, increased from priors. Unchanged embolization coils near the hilum. Pancreas: Normal. Adrenal glands: Normal. Embolism coils medial to the left adrenal gland is unchanged. Kidneys and ureters: Multiple bilateral renal hypodensities, some showing attenuation higher than that of simple cysts, for example 1.6 cm right interpolar lesion (series 305:58), this correlates to a simple cyst seen onstudy dated 10/19/2019 and may represent hemorrhagic/proteinaceous transformation. Other renal hypodensities likely represent simple cysts. Left lower pole nonobstructive 2 mm calculus (series 305:88). No hydronephrosis or suspicious masses. Bladder: Normal. Reproductive organs: Unremarkable. Stomach, small bowel, and large bowel: The stomach is normal. The small bowel is normal in caliber,with no evidence of bowel obstruction. The rectum is normal. The colon contains fluid suggestive ofa diarrheal state otherwise appears normal. Appendix: Not seen. Peritoneum and retroperitoneum: No ascites or pneumoperitoneum. No omental or mesenteric lesions. Fat stranding of the anterior perirenal space bilaterally, nonspecific. Lymph nodes: No pathologically enlarged lymph nodes. Abdominal and pelvic wall: Periumbilical anterior abdominal wall surgical changes, similar to priors. Anterior abdominal wall hernia mesh. Bones: No acute abnormality. Right sacroiliac joint degenerative changes with partial fusion. Mild degenerative changes of the visualized spine. Anterolisthesis of L5 on S1 measuring 1.0 cm with bilateral spondylolysis. IMPRESSION: No evidence of active GI bleed. Extensive upper abdominal collaterals including perigastric and splenorenal collaterals. No paraesophageal collaterals. Partial thrombosis of the portal vein medial to the TIPS, extending into the proximal SMV, probablythe superior IMV, and another partially occlusive thrombus is seen at the splenic vein near the hilum. The portal vein thrombus has progressed from 2020. Cirrhosis with stigmata of portal hypertension including splenomegaly, which has increased from prior study measuring 17.6 cm. Results were conveyed via telephone by Dr. Giselle Matute on 07/11/2023 to Lenora Drake MD at 2:33 AM. I have personally reviewed the images and I agree with this report. WSN: [id number] Ordering Physician: Lenora Drake Dictated By: Giselle Matute MD Dictated Date/Time: 07/11/23 7:06 am Reviewed By: Leif Dupree MD Signed By: Leif Dupree MD Signed Date/Time: 07/11/23 7:11 am Transcribed By: SULY Transcribed Date/Time: 07/11/23 2:35 am Vital Signs Most recent to oldest [Reference Range]: 1 2 3 Height 168 cm (07/17/23 8:26 AM) 168 cm (07/17/23 3:49 AM) 168 cm (07/16/23 11:46 PM) Weight 117.5 kg (07/13/23 8:06 PM) 117.5 kg (07/13/23 10:28 AM) Oxygen Saturation [94-100 %] 95 % (07/17/23 8:26 AM) 95 % (07/17/23 3:49 AM) 96 % (07/16/23 11:46 PM) Pulse Rate [55-90 bpm] 74 bpm (07/17/23 8:26 AM) 72 bpm (07/17/23 3:49 AM) 78 bpm (07/16/23 11:46 PM) Body Mass Index [18.5-24.99 kg/m2] 41.63 kg/m2 *>HHI* (07/13/23 8:06 PM) 41.63 kg/m2 *>HHI* (07/13/23 10:28 AM) Blood Pressure [90-138/55-84 mm Hg] 118/69mm Hg (07/17/23 8:26 AM) 122/80mm Hg (07/17/23 3:49 AM) 111/70mm Hg (07/16/23 11:46 PM) Respiratory Rate [16-30 br/min] 16 br/min (07/17/23 9:22 AM) 18 br/min (07/17/23 8:26 AM) 16 br/min (07/17/23 3:49 AM) Temperature [96.8-100.4 DegF] 98.0 DegF (07/17/23 8:26 AM) 98.9 DegF (07/17/23 3:49 AM) 98.5 DegF (07/16/23 11:46 PM) Liters per Minute 5 L/min (07/12/23 2:56 PM) 5 L/min (07/12/23 2:51 PM) 2 L/min (07/12/23 6:19 AM) Mode of Delivery (Oxygen) Room air (07/17/23 8:26 AM) Room air (07/17/23 3:49 AM) Room air (07/16/23 11:46 PM) Blood pressure sites Arm, right (07/17/23 8:26 AM) Arm, left (07/17/23 3:49 AM) Arm, right (07/16/23 11:46 PM) Temperature Route Oral (07/17/23 8:26 AM) Oral (07/17/23 3:49 AM) Oral (07/16/23 11:46 PM) Dry Weight 117.5 kg (07/13/23 8:06 PM) 117.5 kg (07/13/23 10:28 AM) 117.5 kg (07/12/23 6:19 AM) Endoscopy study * Event Display: GG EGD Please click on pdf link to open report Consult note * Carmencita Schutlz MD: PERFORM, SIGN, VERIFY Event Display: Consult Authored Date: Patient: MERLIN ALVAREZ Age: 68 years Sex: Male : 1955 Associated Diagnoses: Alcohol abuse; Liver cirrhosis; Hepatitis C; Hematemesis; Portal vein thrombosis Author: Carmencita Schultz MD Consulted for possible TIPS revision, patient known to IR service from 2015 (failed TIPS), 2023 cholecystostomy tube in the setting of a ruptured gallbladder with hemoperitoneum. Has elevated velocities on TIPS duplex done today and currently admitted with concern for hematemesis. Has now been fed post TIPS duplex so we will plan shunt evaluation/revision for tomorrow. Please keep n.p.o. after midnight as discussed. Hold anticoagulation given ongoing hematemesis. * Reed BHATT, Yossi: PERFORM Dexter BHATT, Facundo Absar: MODIFY Event Display: Consultation Note Authored Date: Patient: ??MERLIN ALVAREZ ? Age:??68 Years?Sex:??Male?:??1955?? Referrring Provider Not on Staff, Referring MD Chief Complaint Vomiting throughout the day. Family states that he has blood in his vomit. Language barrier so EMS unsure what meds he is on Reason for Consultation Hematemesis History of Present Illness 68-year-old male with history of alcohol associated cirrhosis, chronic hepatitis C, portal vein thrombosis, s/p left 2019, who presented to the hospital with complaints of vomiting and abdominal pain. ?? Patient appears confused and not able to provide a reliable history.?? Per prior notes, patient hasbeen having nausea and bodyaches for about 2 to 3 days.?? Patient reports that his last episode of vomiting was prior to presentation.?? Initially it was clear and then later it was bloody.?? He alsoreports of epigastric pain which is resolved now.?? He reports that his last endoscopy was many years ago at [facility].?? Last EGD with us was in 2017 when patient had varices and required banding.?? Patient underwent TIPS in 2019 at [facility] for variceal bleeding.?? He apparently also underwent a repeat TIPS revision at [facility] this year.?? Patient continues to drink 2 beers every day, and also uses dope. ?? On presentation, patient was noted to be hemodynamically stable, pulse in the 60s, saturating well on room air, afebrile.?? Labs significant for WBC 2.4, hemoglobin 12.7 g/dL, no labs available inthe past 5 years to compare.?? MCV 98.?? Platelet count 60.??INR is 1.4. BMP is WNL. Alk phos is 121, AST is 107, ALT is 44, T bili is 1. Short viral panel is negative.?? Patient underwent CT angio abdomen that showed partial portal vein thrombosis extending into the SMV, just proximal to the TIPS.?? It also showed omental stent extending from the gallbladder to the duodenum. Review of Systems ROS was completed and otherwise negative except as noted in the HPI Physical Exam Vitals & Measurements T:??97.7?F?? TMIN:??97.7?F?? TMAX:??99.2?F?? HR:??63??(Monitored)?? RR:??10?? BP:??130/80?? SpO2:??96%?Gen Appearance: NAD, conversing appropriately ?HEENT: conjunctiva wnl, MMM?Heart: S1/S2 heard ?Lungs: No overt resp distress, CTA ?Abdomen: soft, nontender, nondistended?Musculoskeletal: No joint swelling/erythema ?Neurological: A/Ox3, no gross deficits ?Extremities: No DREAD, Normal Capillary refill ?Derm: No rash Assessment/Plan 68-year-old male with history of alcohol associated cirrhosis, chronic hepatitis C, portal vein thrombosis, s/p left 2019, who presented to the hospital with complaints of vomiting and abdominal pain. ?? Coffee ground emesis?? History of decompensated cirrhosis with variceal bleeding??and hepatic encephalopathy Patient presented with coffee ground emesis, melena reported. ??Patient is a poor historian. ??Patient previously has undergone TIPS??for variceal bleeding, however appears to have developed (clinically based on CT.?? This could be due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 Hospital Authored Date: [id number] Patient: ??MERLIN ALVAREZ ? Age:??68 Years?Sex:??Male?:??1955?? Subjective Patient seen and examined at bedside.??No acute overnight events. Has one IV access, IV team paged overnight for secondary.?? Vitals: Afebrile, normotensive, saturating 97% on room air On octreotide drip, to finish tonight. Patient n.p.o.??for IR shunt evaluation/revision??today. Feels good today and is looking forward to getting the TIPS evaluation. Working with SW, patient will have??[facility] care home placement. Denies any chest pain, shortness of breath, abdominal pain, nausea, vomiting. Review of Systems A full review of systems was completed and is otherwise negative except as mentioned in history of present illness. Objective Vital Signs?? Temperature: 98.3 DegF (07/16/23 08:06:00) Temperature Route: Oral (07/16/23 08:06:00) Pulse Rate: 65 bpm (07/16/23 08:06:00) Respiratory Rate: 20 br/min (07/16/23 08:06:00) Systolic Blood Pressure: 128 mm Hg (07/16/23 08:06:00) Diastolic Blood Pressure: 70 mm Hg (07/16/23 08:06:00) Blood pressure sites: Arm, right (07/16/23 08:06:00) Mean Arterial Pressure: 89 mm Hg (07/16/23 08:06:00) Pulse Pressure: 58 mm Hg (07/16/23 08:06:00) Oxygen Saturation: 97 % (07/16/23 08:06:00) Mode of Delivery (Oxygen): Room air (07/16/23 08:06:00) Early Warning Score: 7 (07/16/23 08:07:31) ? Intake/Output? 07/11 04:01 07/16 07:00 07/15 07:00 07/14 07:00 07/13 07:00 ?? 07/16 08:45 07/16 08:45 07/16 06:59 07/15 06:59 07/14 06:59 Intake ?896 ?0 ? 96 ?768 ? 32 Output ? 3701 ?0 ? 1751 ? 1550 ?400 Net Total ?-2805 ?0 ?-1655 ? -782 ? -368 ? Physical Exam General: Patient in no acute distress?? HEENT: normocephalic, atraumatic Respiratory: bilateral equal air entry, clear to auscultation with no wheezes or crackles. CVS: regular rate and rhythm, S1 and S2 present, no murmurs. No JVD.?? Abdomen: soft, non tender, enlarged but not rigid, bowel sounds present. Extremities: Chronic stasis dermatitis noted bilateral lower extremities. Neuro: alert and oriented x3. Moving all extremities spontaneously. Following simple commands. _ Inpatient Medications Medications (30) Active SCHEDULED: (11) Ceftriaxone 1 Gm Inj (Ceftriaxone Inj) ??1 Gm, IVPB, Every 24 hours Folic Acid 1 mg Tablet (folic acid 1 mg oral tablet) ??1 mg, By Mouth, Daily Furosemide 40 mg Tablet (furosemide 40 mg oral tablet) ??40 mg, By Mouth, Daily Lactulose 20 Gm/30mL Syrup (lactulose 10 gm/15 ml oral syrup) ??10 Gm 15 mL, By Mouth, 3 times a day Methadone 10 mg Tablet (Methadone Tablet) ??50 mg, By Mouth, Daily NaCl 0.9% Flush 3ml (NaCL 0.9% Flush) ??3 mL, IV Push, Every 8 hours Pyridoxine 50 mg Tablet (Pyridoxine Tablet) ??50 mg, By Mouth, Daily Rifaximin 550 mg Tab (rifAXIMin 550 mg oral tablet) ??550 mg, By Mouth, 2 times a day Spironolactone 100 mg Tablet (spironolactone 100 mg oral tablet) ??100 mg, By Mouth, Daily Thiamine 100 mg Tablet (thiamine 100 mg oral tablet) ??100 mg, By Mouth, Daily Vitamin B-12 ??1000 mcg Tablet (Vitamin B12 1000 mcg oral tablet) ??1,000 mcg, By Mouth, Daily CONTINUOUS: (1) Octreotide 500 mcg Inj 1.25 mg + D5%W (100 mL) Cont IV 100 mL (Octreotide Cont IV 1.25 mg + D5%W 100 mL) ??100 mL, IV Infusion, 4 mL/hr PRN: (18) Acetaminophen 325 mg Tablet (acetaminophen 325 mg oral tablet) ??650 mg, By Mouth, Every 6 hours Dextromethorphan-Guaifenesin 20 mg-200 mg/10 mL Liqu UD (Robitussin DM Liquid) ??10 mL, By Mouth, Every 4 hours Dextrose Inj Syringe (Dextrose 50% Inj Syringe (25Gm)) ??12.5 Gm, IV Push Slowly, Every 20 minutes Dextrose Inj Syringe (Dextrose 50% Inj Syringe (25Gm)) ??25 Gm, IV Push Slowly, Every 15 minutes Docusate Sodium 100 mg Capsule (Docusate Sodium Capsule) ??100 mg 1 capsule, By Mouth, 2 times a day Glucagon 1 mg Inj (Glucagon Inj) ??1 mg, Intramuscular, Once Glucose 40% Gel (15 Gm) (Glucose Gel) ??15 Gm, By Mouth, Every 20 minutes Glucose 40% Gel (15 Gm) (Glucose Gel) ??30 Gm, By Mouth, Every 20 minutes Lorazepam 1 mg Tablet (Ativan Tablet) ??1 mg, By Mouth, Every 2 hours Lorazepam 2 mg Tablet (Ativan Tablet) ??2 mg, By Mouth, Every 2 hours Lorazepam 2 mg Tablet (LORazepam Tablet) ??2 mg, By Mouth, Every hour Melatonin 3 mg Tablet (Melatonin Tablet) ??3 mg, By Mouth, Daily at bedtime NaCl 0.9% Flush 3ml (NaCL 0.9% Flush) ??3 mL, IV Push, Every 8 hours nalOXONE ??400mcg/mL Inj (nalOXONE Inj) ??0.2 mg 0.5 mL, IV Push, Every 5 minutes OxyCODONE 5 mg IR Tablet (oxyCODONE 5 mg oral tablet) ??5 mg, By Mouth, Every 6 hours Polyethylene Glycol 17 Gm Powder (MiraLax Powder) ??17 Gm 1 pack/packet, By Mouth, Daily Senna Tablet ??8.6 mg 1 tablet, By Mouth, 2 times a day Simethicone 80 mg Chewable Tablet (Simethicone Tablet) ??80 mg, Chew, 3 times a day ? Results WBC stable at 3.8, hemoglobin 13.4, platelet count 64 from 72. Electrolytes within normal limits. ?? Liver enzymes WNL. ?? Doppler US 07/14: Elevated velocity within the midportion of the TIPS. Decreased velocity within the portal vein end of the TIPS and the main portal vein proximal to the TIPS. ??Gradients between segments within the TIPS are greater than 50 cm/s. ??Findings may be related to proximal thrombus as described on prior CT or may represent stenosis versus thrombosis of the TIPS graft. Previously described thrombus in the main portal vein and splenic vein on CT is not well-visualizedsonographically. Overall limited study with nonvisualization of the left portal vein and right and middle hepatic veins. Assessment/Plan Patient is a 68 y/o male with h/o opiate dependence on methadone, hepatitis C, liver cirrhosis, UGIbleed/esophageal varices (status post banding in 2016) portal vein thrombosis on warfarin, medication noncompliance, history of alcohol, smoking and drug use, still mild ongoing use is presenting to the emergency department for concern of hematemesis. CT angio abdominal???no evidence of ongoing GI bleed, shows sequelae of cirrhosis/portal hypertension/and worsening of portal vein thrombosis and new splenic thrombosis. He is s/p EGD now on octreotide drip. Also concern for worsening??thrombosis of portal vein.?? Doppler ultrasound to assess for patency of TIPS??showed question of stenosis versus thrombosis, currently n.p.o. after midnight??for??IR evaluation of??shunt evaluation/revision??07/16/2023. ? Hematemesis (K92.0): Suspected variceal bleed Dizziness (R42): History of EtOH cirrhosis, esophageal varices s/p TIPS at [facility] He has history of ulcers in gastric fundus per his last EGD PC: coffee-ground emesis??and melena.?? Noted to have progression??of??a portal venous thrombus?? S/p EGD on 07/12: showed??multiple columns of esophageal varices??that were banded. ?? Plan: ?Continue with IV PPI twice daily? Continue IV octreotide??for 72 hours total (to end tonight 07/16) ??? Continue ceftriaxone for??SBP prophylaxis ?Outpatient f/u with GI for repeat EGD in 2 weeks ? 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 Ultrasound Doppler for TIPS patency showed question of stenosis versus thrombosis. ?? Plan: ??? N.p.o. for??IR??shunt??evaluation/revision??07/16/2023, can resume diet after ??? MELD labs in AM ??? Hold anticoagulation for now. Will wait at??least 1 week??prior to??starting anticoagulation.??He should be started on??Lovenox 1.5??mg/kg??once daily??for this. ??? Continue??Lasix and spironolactone ?Continue rifaximin, lactulose, thiamine, multivitamin, folic acid ?Will need records from [facility] ??? Repeat upper endoscopy??in 2 weeks??to evaluate for eradication of varices ? Opiate dependence (F11.20), Alcohol abuse (F10.10), Opioid use (F11.90):??Methadone dose was verified by RN , he takes 50 mg.??Continue Methadone 50 mg daily, CIWA with Ativan ?? Social Issues/Non compliance:??SW consulted. Has??bed at [facility] care home.? Quality measures VTE Prophylaxis: PCDs Code Status: Full code Diet: NPO pending IR evaluation, can resume dental soft diet after OMN: octreotide drip, TIPS evalLUPE recs ? Tegan Hebert MD Internal Medicine PGY2 Pager: [phone] ?? Patient seen and management discussed with attending physician,??Dr. Edward * Cheyanne BHATT, Gris Rose: PERFORM Event Display: Progress Note Hospital Authored Date: Attending Attestation:??I have seen and evaluated this patient.?I have discussed the case and its management with the resident and agree with the findings and plan as documented in the resident???s note except where modified. Plan for TIPS revision today. Per SW if unable to dc by 11 am 07/17/23, will lose his motel room. ?? Gris Edward MD Note * Simran Abarca RN: PERFORM Event Display: Discharge/Transfer Note Hospital Authored Date: Nursing Discharge Note Entered On: 07/17/2023 10:57 EST Performed On: 07/17/2023 10:56 EST by Simran Abarca RN Nursing Discharge Note 2 Discharge Time : 07/17/2023 10:45 EST Discharge Level of Care at Discharge : Home/Senior Care/Foster Care Patient Left Unit Via : Wheelchair Patient Accompanied Off Unit with : Responsible adult DC Instructions Provided & Signed by Pt : Yes Patient Understands D/C Instructions : Yes Verbalized Understanding of D/C Plan By : Patient Patient Instructions Discharge Signed : Yes Discharge Comments : dc instructions reviewed with pt and niece Did Pt have Specialty Bed or Wound Vac : No Simran Abarca RN - 07/17/2023 10:56 EST * Yariel Velazquez DO: PERFORM Yariel Velazquez DO: PERFORM, MODIFY Event Display: Discharge/Transfer Note Hospital Authored Date: Patient: ??MERLIN ALVAREZ ? Age:??68 Years?Sex:??Male?:??1955?? Patient Information Discharge Location: W4 Primary Care Physician: Akua BHATT, Michelle Avalos Admit Date/Time: 07/11/23 04:01 Discharge Date: 07/17/2023 Discharge Disposition Discharge Disposition: Home with Home Health Discharge Diagnosis Hematemesis (K92.0) Dizziness (R42) Portal vein thrombosis (I81) Splenic vein thrombosis (I82.890) Liver cirrhosis (K74.60) Hepatitis C (B19.20) Portal hypertension (K76.6) Opiate dependence (F11.20) Decompensated hepatic cirrhosis (K72.90) Alcohol abuse (F10.10) General weakness (R53.1) Opioid use (F11.90) ?? _ Discharge Medications Bisacodyl (bisacodyl 10 mg rectal suppository)?1?suppository(ies)?10?Milligram?Rectally?2 times a day?as needed?Constipation Ciprofloxacin (ciprofloxacin 500 mg oral tablet)?1?tab(s)?500?Milligram?By Mouth?Every 12 hours?for 3?Days Cyanocobalamin (Vitamin B12 1000 mcg oral tablet)?1?tab(s)?1,000?Microgram?By Mouth?Daily Docusate (docusate sodium 150 mg/15 ml oral liquid)?10?Milliliter?100?Milligram?By Mouth?2 times a day?as needed?Constipation Ergocalciferol (Vitamin D 83379 iu oral capsule)?50,000?International Unit?1?capsule?By Mouth?Every week Ferrous Sulfate (ferrous sulfate 325 mg oral enteric coated tablet)?325?Milligram?1?tablet?By Mouth?Daily Folic Acid (folic acid 1 mg oral tablet)?1?Milligram?By Mouth?Daily Furosemide (furosemide 40 mg oral tablet)?40?Milligram?1?tablet?By Mouth?2 times a day HydrOXYzine (hydrOXYzine hydrochloride 25 mg oral tablet)?1?tab(s)?25?Milligram?By Mouth?4 times a day?as needed?for anxiety Lactulose (lactulose 10 gm/15 ml oral syrup)?15?Milliliter?10?gram?By Mouth?3 times a day Methadone (Methadone Tablet)?50?Milligram?By Mouth?Daily Pantoprazole (pantoprazole 40 mg oral delayed release tablet)?1?tab(s)?40?Milligram?By Mouth?2 times a day Pyridoxine (pyridoxine 50 mg oral tablet)?50?Milligram?By Mouth?Daily Rifaximin (rifAXIMin 550 mg oral tablet)?1?tab(s)?550?Milligram?By Mouth?2 times a day Spironolactone (spironolactone 100 mg oral tablet)?100?Milligram?1?tablet?By Mouth?Daily Thiamine (thiamine 100 mg oral tablet)?100?Milligram?By Mouth?Daily Vancomycin (vancomycin 125 mg oral capsule)?1?capsule?125?Milligram?By Mouth?Daily?for 10?Day ? Medications Started Ciprofloxacin (ciprofloxacin 500 mg oral tablet)?1?tab(s)?500?Milligram?By Mouth?Every 12 hours?for 3?Days Vancomycin (vancomycin 125 mg oral capsule)?1?capsule?125?Milligram?By Mouth?Daily?for 10?Day Medications Discontinued Warfarin (warfarin 3 mg oral tablet)?1?tab(s)?3?Milligram?By Mouth?Daily?for 30?Days?Daily INRPlease follow up with INR clinic Doses Changed Pantoprazole (pantoprazole 40 mg oral delayed release tablet)?1?tab(s)?40?Milligram?By Mouth?2 times a day PCP Follow-Up/Heads-Up Patient was seen at [facility] for hematemesis secondary to??varices. ??He was evaluated by??GI and underwent an EGD with banding.?? Further evaluation showed that he has a chronic??portal vein thrombosis and new splenic vein thrombosis.?? He underwent repeat TIPS??and tolerated the??pr ocedure well. ?? Please follow-up with patient within 1 week and repeat CBC. ??The patient will also be on ciprofloxacin??and vancomycin for SBP and C. difficile prophylaxis. ?? Patient will need to start??Lovenox 1.5 mg/kg??subcu injections on??07/21/2023 (~1 week after variceal banding per GI recs) for expanding portal vein thrombus, splenic vein thrombus while on coumadin.?? Please??arrange this and provide patient education as to how to administer this medication.?? He will need to be on this??for the next few months until he has repeat ultrasound and is followed by GI??to evaluate??progression of clot. ?? Patient's niece previously would bring him to appointments but she reports she is no longer available to do so. Will likely need PT-1 for both PCP and GI appointments. Hospital Course 68 y/o male with h/o opiate dependence on methadone, hepatitis C, liver cirrhosis, UGI bleed/esophageal varices (status post banding in 2017) portal vein thrombosis on warfarin, medication noncompliance, history of alcohol, smoking and drug use, still mild ongoing use is presenting to the emergency department for concern of hematemesis. CT angio abdominal???no evidence of ongoing GI bleed, shows sequelae of cirrhosis/portal hypertension/and worsening of portal vein thrombosis and new splenic thrombosis. He is s/p EGD now on octreotide drip. Also concern for worsening thrombosis of portal vein. Doppler ultrasound to assess for patency of TIPS showed question of stenosis versus thrombosis, currently n.p.o. after midnight for IR evaluation of shunt evaluation/revision 07/16/2023.?Revision of TIPS was successful. Patient will need to follow-up with??PCP and GI for further surveillance. ?? Objective Hematemesis (K92.0): Suspected variceal bleed Dizziness (R42): History of EtOH cirrhosis, esophageal varices s/p TIPS at [facility] He has history of ulcers in gastric fundus per his last EGD PC: coffee-ground emesis??and melena.?? Noted to have progression??of??a portal venous thrombus, now with splenic vein thrombus S/p EGD on 07/12: showed??multiple columns of esophageal varices??that were banded. Sp 72 hours octreotide gtt On abx for SBP ppx ?? Recommendations: ?Protonix 40 mg p.o.??twice daily until GI fu ??? Ciprofloxacin 500 mg??every 12 hours??for 7 days for SBP prophylaxis -Vancomycin??125??mg p.o.??daily??for 10 days??for C. difficile prophylaxis (alert that has hx C diff) -Follow-up with primary care next week regarding??starting Lovenox (as below) ?Outpatient f/u with GI for repeat EGD in 2 weeks ? Portal vein thrombosis (I81): Splenic??vein thrombosis (I82.890): Decompensated hepatic cirrhosis (K72.90): Liver cirrhosis (K74.60): Hepatitis C (B19.20): Portal hypertension (K76.6): Thrombosis appears to be??close to the proximal??end of the TIPS??and extending into the SMV??and asplenic vein thrombus??at the splenic hilum. INR 1.4 on admission. Previously was on Coumadin but last refill in Aug 2022. Ultrasound Doppler for TIPS patency showed question of stenosis versus thrombosis. Underwent TIPS revision 07/16/23. ?? Recommendations: - Will wait at??least 1 week after banding??prior to??starting anticoagulation (banding performed 07/12/23).??He should be started on??Lovenox 1.5??mg/kg??once daily??for this. Will need outpatient education.??Discontinuing warfarin. ??? Continue??Lasix and spironolactone -- refilled on dc ?Continue rifaximin, lactulose, thiamine, multivitamin, folic acid -- refilled on dc (needs repeat prior auth for further rifaximin, discharged with short supply) ??? Repeat upper endoscopy??in 2 weeks??to evaluate for eradication of varices ?? Opiate dependence (F11.20), Alcohol abuse (F10.10), Opioid use (F11.90):??Methadone dose was verified by RN , he takes 50 mg.??Continue Methadone 50 mg daily, last dose letter provided ?? Social Issues/Non compliance:??SW consulted. Has??bed at [facility].??Niece picked up patient to bring to [facility] on discharge and settle him in,??but reports she is going to??go back to [facility] the week and will be unavailable to bring to appointments. Will likely need PT-1 for transportation. Medications??refilled on dc at [facility]??pharmacy.? Vital Signs?? Temperature: 98 DegF (07/17/23 08:26:00) Temperature Route: Oral (07/17/23 08:26:00) Pulse Rate: 74 bpm (07/17/23 08:26:00) Respiratory Rate: 18 br/min (07/17/23 08:26:00) Systolic Blood Pressure: 118 mm Hg (07/17/23 08:26:00) Diastolic Blood Pressure: 69 mm Hg (07/17/23 08:26:00) Blood pressure sites: Arm, right (07/17/23 08:26:00) Mean Arterial Pressure: 85 mm Hg (07/17/23 08:26:00) Pulse Pressure: 49 mm Hg (07/17/23 08:26:00) Oxygen Saturation: 95 % (07/17/23 08:26:00) Mode of Delivery (Oxygen): Room air (07/17/23 08:26:00) Early Warning Score: 9 (07/17/23 08:27:37) ? . Physical Exam General: Patient in no acute distress?? HEENT: normocephalic, atraumatic Respiratory: bilateral equal air entry, clear to auscultation with no wheezes or crackles. CVS: regular rate and rhythm, S1 and S2 present, no murmurs. No JVD.?? Abdomen: soft, non tender, enlarged but not rigid, bowel sounds present. Extremities: Chronic stasis dermatitis noted bilateral lower extremities. Neuro: alert and oriented x3. Moving all extremities spontaneously. Following simple commands. Surgical Procedures Gastroscopy (EGD) Diagnostic 07/12/2023 14:27 [facility] Gastroenterology Interventional Radiology Pending Results No Pending Results Patient Education Titles Cirrhosis?? Tests for Liver Disease?? Follow-Up Appointments Added Follow Up ?Time Frame ?Comments Akua BHATT, Michelle Avalos?1 week Patient Instructions You were seen at [facility] for vomiting of blood.?? You are found to have a clot in one of the veins anterior liver and a new clot in a vein to your spleen.?? You were evaluated by gastroenterology and interventional radiology and underwent a procedure which was a revision of TIPS procedure that you have had in the past.?? This was done successfully. ?? You will need to follow closely with your primary care provider and the hog stomach preparer. ?? You will need to be on a blood thinner which she will start on 07/25/2023.?? This is an injection that you will need to receive instruction from your primary care provider for.?? It is to be given every day.?? This will help reduce the clot. ?? You will need to follow-up with gastroenterology for repeat upper endoscopy to evaluate for varicesin approximately 2 weeks.?? Will also need a repeat ultrasound of your liver in 6 months to assess the clot. ?? You also need to continue on an antibiotic for 3 days to prevent infection in your abdomen.?? You will be on another antibiotic for a total of 8 days to prevent C. difficile infection. Home Health Face to Face *Denotes mandatory hassan ?? *I certify that this patient is under my care and that I or an allowed non- physician working with me had a face to face encounter with the patient on this date:??07/17/2023 09:20 ?? *The encounter with the patient was in whole, or in part, for the following medical condition, which is the primary diagnosis(es) for home health care:??Hematemesis (K92.0) Dizziness (R42) Portal vein thrombosis (I81) Splenic vein thrombosis (I82.890) Liver cirrhosis (K74.60) Hepatitis C (B19.20) Portal hypertension (K76.6) Opiate dependence (F11.20) Decompensated hepatic cirrhosis (K72.90) Alcohol abuse (F10.10) General weakness (R53.1) Opioid use (F11.90) ? *Select the indications for the discipline/s that are being arranged for this patient. Nursing (select all that apply): [_] None [X] Medication management (reconciliation, teaching)?? [X] Chronic disease management?? [_] Wound care and treatment?? [X] Home safety evaluation [X] Administer SQ/IM/IV medications?? [_] Cath care?? [_] Drain care?? [_] Trach or GT care?? Other _ Occupation Therapy (select all that apply): [_] None [_] ADL Management [_] Fall prevention training [_] Energy conservation [_] Cognitive training Other _ Physical Therapy (select all that apply): [_] None [_] Functional mobility training [_] Home exercise program to strengthen [_] Increase ROM?? [_] Falls prevention training [_] Home maintenance program for chronic disease Other _ Speech Therapy (select all that apply): [_] None [_] Swallow evaluation and training [_] Speech and language training [_] Cognitive training to process, organize, and/or recall information Other _ ? *Homebound due to (select all that apply): [X_] Inability to leave home without assistance/supervision [_] Inability to ambulate without assistance [_] Pain [_] Decreased strength and endurance [_] Unsteady gait [_] Severe SOB and fatigue [_] Impaired transfers [_] Inability to negotiate stairs [_] Limited weight bearing [_] Mental status change? *Physician Signature:??Yariel Velazquez, DO ?? *By signing this, I certify that I have personally evaluated the patient and agree with the findings and recommendations as documented above. ? Results Discharge Labs BLOOD COUNT & DIFF WBC 3.8 k/mm3 (Low)?? 07/16/2023 00:46 RBC 4.24 m/mm3 (Low)?? 07/16/2023 00:46 Hgb 13.4 Gm/dL (Low)?? 07/16/2023 00:46 Hct 40.0 % (Low)?? 07/16/2023 00:46 MCV 94.3 femtoliters (High)?? 07/16/2023 00:46 MCH 31.6 pg ()?? 07/16/2023 00:46 MCHC 33.5 g/dL ()?? 07/16/2023 00:46 Platelet Count 64 k/mm3 (Low)?? 07/16/2023 00:46 RDW-SD 47.8 femtoliters (High)?? 07/16/2023 00:46 MPV 11.1 femtoliters ()?? 07/16/2023 00:46 Nucleated RBC (Automated) 0.0 #/100 WBC'S ()?? 07/16/2023 00:46 Abs. NRBC 0.0 k/mm3 ()?? 07/16/2023 00:46 Abs. Neut 1.2 k/mm3 (Low)?? 07/13/2023 03:53 Abs. Lymph 0.7 k/mm3 (Low)?? 07/13/2023 03:53 Abs. [place] 0.2 k/mm3 (Low)?? 07/13/2023 03:53 Abs. Eo 0.2 k/mm3 ()?? 07/13/2023 03:53 Abs. Baso 0.0 k/mm3 ()?? 07/13/2023 03:53 Neut % 50.0 % ()?? 07/13/2023 03:53 Lymph % 29.8 % ()?? 07/13/2023 03:53 [place] % 9.1 % ()?? 07/13/2023 03:53 Eos % 9.5 % (High)?? 07/13/2023 03:53 Baso % 1.2 % ()?? 07/13/2023 03:53 Imm Gran 0.4 % ()?? 07/13/2023 03:53 Abs. Imm Gran 0.0 k/mm3 ()?? 07/13/2023 03:53 ?? CHEM GENERAL Sodium 133 mmol/L ()?? 07/16/2023 00:46 Potassium 4.0 mmol/L ()?? 07/16/2023 00:46 Chloride 98 mmol/L ()?? 07/16/2023 00:46 Bicarbonate Level 28 mmol/L ()?? 07/16/2023 00:46 Anion Gap 7 ()?? 07/16/2023 00:46 Glucose Level 153 mg/dL (High)?? 07/16/2023 00:46 Glucose, POC 117 mg/dL (High)?? 07/15/2023 18:06 BUN 16 mg/dL ()?? 07/16/2023 00:46 Creatinine-Blood 0.8 mg/dL ()?? 07/16/2023 00:46 Estimated GFR Creatinine 97 ML/MIN/1.73 M2 ()?? 07/16/2023 00:46 Calcium 8.5 mg/dL (Low)?? 07/16/2023 00:46 Phosphorus 2.4 mg/dL (Low)?? 07/16/2023 00:46 Magnesium 1.8 mg/dL ()?? 07/16/2023 00:46 Protein, Total 7.3 Gm/dL ()?? 07/16/2023 00:46 Albumin 3.3 Gm/dL (Low)?? 07/16/2023 00:46 AG Ratio 0.8 ()?? 07/16/2023 00:46 Alkaline Phosphatase 78 units/L ()?? 07/16/2023 00:46 Lipase 107 units/L (High)?? 07/10/2023 22:25 AST (SGOT) 35 units/L ()?? 07/16/2023 00:46 ALT (SGPT) 22 units/L ()?? 07/16/2023 00:46 Bilirubin, Total 1.1 mg/dL ()?? 07/16/2023 00:46 Bilirubin, Direct 0.5 mg/dL (High)?? 07/14/2023 06:51 Bilirubin, Indirect 1.7 mg/dL (High)?? 07/14/2023 06:51 Lactate 1.7 mmol/L ()?? 07/10/2023 22:25 ?? COAG INR 1.5 (High)?? 07/16/2023 00:46 Protime (PT) 15.4 seconds (High)?? 07/16/2023 00:46 APTT 27.1 seconds ()?? 07/11/2023 01:50 ? HEME OTHER Hold Lavender Top SPECIMEN DISCARDED AFTER 24 HOURS. ()?? 07/15/2023 00:20 Hold Blue Top SPECIMEN DISCARDED AFTER 4 HOURS. ()?? 07/10/2023 22:25 ?? MISC. CHEMISTRY Ammonia, Venous 87 ??mole/L (High)?? 07/11/2023 19:00 ? URINE OTHER Est Creatinine Clearance 81.27 mL/min ()?? 07/16/2023 02:13 ? VIROLOGY Influenza A PCR NEGATIVE ()?? 07/10/2023 23:05 Influenza B PCR NEGATIVE ()?? 07/10/2023 23:05 RSV PCR NEGATIVE ()?? 07/10/2023 23:05 COVID-19 PCR Specimen Source NASAL ()?? 07/10/2023 23:05 COVID-19 PCR Result NEGATIVE ()?? 07/10/2023 23:05 ? Procedures(s) ?GG EGD ?? 07/12/2023 14:00 ?EGD showed normal duodenum, varices in the lower third of the esophagus, congestion erythema edema friability and fishnet of lacy pattern in the whole stomach compatible with severe portal hypertensive gastropathy. Plan is to advance diet as tolerated. Patient will need follow-up with GI. ? Imaging(s) ?US Abdominal Doppler Comp ?? 07/14/2023 11:50??by Alvarez BHATT, Haroldo ?IMPRESSION: ?? Elevated velocity within the midportion of the TIPS. Decreased velocity within the portal vein end of the TIPS and the main portal vein proximal to the TIPS. Gradients between segments within the TIPS are greater than 50 cm/s. Findings may be related to proximal thrombus as described on prior CT ormay represent stenosis versus thrombosis of the TIPS graft. ?? Previously described thrombus in the main portal vein and splenic vein on CT is not well-visualizedsonographically. ?? Overall limited study with nonvisualization of the left portal vein and right and middle hepatic veins. ?ECG 12-Lead ?? 07/11/2023 17:18??by Ross Mcguire MD ?[id number] Ventricular Rate: 65 BPM Atrial Rate: 65 BPM P-R Interval: 168 ms QRS Duration: 114 ms Q-T Interval: 428 ms QTC Calculation(Bazett): 445 ms P [place]: -9 degrees R [place]: -41 degrees T [place]: -8 degrees Normal sinus rhythm with sinus arrhythmia Left axis deviation Abnormal ECG When compared with ECG of 10-SEP-2020 12:41, No significant change was found ?IR Revision of TIPSS ?? 07/16/2023 13:42??by Antoine BHATT, Colemanu ?IMPRESSION: Patent TIPS with stenosis in the mid aspect. Initial portosystemic gradient up to 24 mmHg, improved to 12mmHg after shunt revision. ?? [place] [address] ?? Recommendations: Surveillance duplex sonography Q6 months. ?CT Angio Abdomen and Pelvis ?? 07/11/2023 01:38??by Leif Dupree MD ?IMPRESSION: No evidence of active GI bleed. Extensive upper abdominal collaterals including perigastric and splenorenal collaterals. No paraesophageal collaterals. ?? Partial thrombosis of the portal vein medial to the TIPS, extending into the proximal SMV, probablythe superior IMV, and another partially occlusive thrombus is seen at the splenic vein near the hilum. The portal vein thrombus has progressed from 2019. ?? Cirrhosis with stigmata of portal hypertension including splenomegaly, which has increased from prior study measuring 17.6 cm. ? Consults(s) ?Consultation Note ?? 07/12/2023 16:23??by Dexter BHATT, Facundo Szymanski ?68-year-old male with history of alcohol associated cirrhosis, chronic hepatitis C, portal vein thrombosis, s/p left 2019, who presented to the hospital with complaints of vomiting and abdominal pain. ?? Coffee ground emesis ??History of decompensated cirrhosis with variceal bleeding and hepatic encephalopathy ??Patient presented with coffee ground emesis, melena reported. Patient is a poor historian. Patient previously has undergone TIPS for variceal bleeding, however appears to have developed (clinicallybased on CT. This could be due to thrombosis within the tips. CT does show portal vein thrombosis proximal to the TIPS. This is despite patient being on warfarin, however his INR was subtherapeutic at 1.5. MELD 10 ?? Recommendations: ??? Will plan for EGD today ??? Plan for anticoagulation based on EGD findings. Patient will likely need to be transitioned to apixaban instead of warfarin. ??? [facility]btain [facility] from [facility] regarding the biliary stent ??? Continue IV PPI, continue IV octreotide until the EGD ??? Continue antibiotics for total of 5 days ??? Daily MELD labs ??? Obtain ultrasound Doppler through TIPS ???Blood cultures, obtain ultrasound ascites if ascites is present obtain diagnostic paracentesis with cell studies ?Consult ?? 07/15/2023 12:18??by Antoine BHATT, Njogu ?Consulted for possible TIPS revision, patient known to IR service from 2016 (failed TIPS), BR, 2023 cholecystostomy tube in the setting of a ruptured gallbladder with hemoperitoneum. Has elevated velocities on TIPS duplex done today and currently admitted with concern for hematemesis.Has now been fed post TIPS duplex so we will plan shunt evaluation/revision for tomorrow. Please keep n.p.o. after midnight as discussed. Hold anticoagulation given ongoing hematemesis. ? 41??minutes spent on discharge * Cheyanne BHATT, Gris Rose: PERFORM Event Display: Discharge/Transfer Note Hospital Authored Date: [id number] Attending Attestation:??I have seen and evaluated this patient.?I have discussed the case and its management with the resident and agree with the findings and plan as documented in the resident???s note except where modified. ?? Gris Edward MD * Rima LEIGH, Simran: PERFORM Event Display: Patient Education/Instruction Authored Date: [id number] Inpatient Adult Discharge Instructions [address] [address] Name: MERLIN ALVAREZ : 1955 Visit: 07/11/2023 04:01:00 Current Date: 07/17/2023 09:23 Account: [id number] Inpatient Adult Discharge Instructions We would like to thank you for allowing us to assist you with your healthcare needs. The following includes patient education materials and information regarding your injury/illness. Our entire staffstrives to provide an excellent experience for our patients and their families. PLEASE ENSURE YOU FOLLOW-UP PER THE INSTRUCTIONS BELOW! ?? YOUR OPINION IS IMPORTANT TO US! Please complete the survey you may receive by mail or email. Your feedback will be used to make improvements to the healthcare experiences of our patients and their families. Surveys are administered by [employer] ?? If further treatment with your primary care physician or another doctor is recommended, it is important for you to keep the appointment. Call your primary care physician or return to the Emergency Department immediately if your condition worsens, fails to improve, or new symptoms develop. If you need to find a doctor, you can call [facility] for a referral at [phone] or toll free at [phone] or log in to [email or web address].. ?? [facility], in keeping with [facility] guidance, no longer requires face masks for staff, patientsor visitors in most situations. Similiar to time spent indoors at other locations, there is the chance that you were exposed to repiratory viruses during your time with us (such as flu or COVID-19). If you develop symptoms concerning for a viral respiratory infection, please seek testing (and treatment if indicated) from your medical provider or home test kit. ?? You can view and manage your care through the patient portal or by using a health care jake of your choosing. [employer] is a website that allows you to securely view your medical information including your hospital discharge summary, office visit summaries, medications and follow-up visits. You can also request appointments, renew medications, and request access to your medical information using a health care jake of your choosing, or just ask a question. You can enroll at [email or web address] or register during your next office visit. You have been discharged from [facility], Patient Care Unit: W4. If you have any questions regarding these instructions after you leave, please call us and we will be happy to assist you. [facility] Your Care Team Attending Physician Cheyanne BHATT, Gris Rose Consulting Providers Antoine BHATT, Carmencita Discharging Providers Yariel Velazquez DO Reason for Admission Vomiting throughout the day. Family states that he has blood in his vomit. Language barrier so EMS unsure what meds he is on Your Diagnosis Portal vein thrombosis Splenic vein thrombosis Hematemesis Liver cirrhosis Hepatitis C Portal hypertension Opiate dependence Dizziness General weakness Alcohol abuse Opioid use Decompensated hepatic cirrhosis Tests Performed Below is a partial list of the tests performed during your hospitalization. You may have had other tests and procedures not included in this list. Please discuss all test results with your provider. Alk Phos ALT Ammonia Venous AST Basic Metabolic Panel Bilirubin Total + Direct BUN CBC CBC w/ Differential Comprehensive Metabolic Panel COVID-19, RSV, and Flu A/B, Rapid PCR Creatinine Electrolytes Glucose Level GLUCOSE POC H + H Hepatic Function Panel Hold Blue Top Tube HOLD LAVENDER TUBE INR Lactic Acid Level Lipase Magnesium Level Mg Level Phosphorus Level PT (INR) PTT CT Angio Abdomen and Pelvis IR Generic Order US Abdominal Doppler Comp Primary Care Provider Akua BHATT, Michelle Avalos Advance Directive Health Care Proxy on File Yes - Health Care Proxy Discharge Vitals Temperature: 98 DegF Height: 168 cm Pulse Rate: 74 bpm Weight: 117.5 kg Respiratory Rate: 18 br/min Body Mass Index:??41.63 kg/m2??Critical Systolic Blood Pressure: 118 mm Hg Body surface area: 2.34 Diastolic Blood Pressure: 69 mm Hg ?? Oxygen Saturation: 95 % ?? Studies Pending All tests and labs ordered during this hospital stay have been completed unless listed below. Please discuss all pending results with your provider listed above in these instructions. ?? Hgb + Hct (H + H) What to do next Instructions From Your Doctor You were seen at [facility] for vomiting of blood.?? You are found to have a clot in one of the veins anterior liver and a new clot in a vein to your spleen.?? You were evaluated by gastroenterology and interventional radiology and underwent a procedure which was a revision of TIPS procedure that you have had in the past.?? This was done successfully. ?? You will need to follow closely with your primary care provider and the hog stomach preparer. ?? You will need to be on a blood thinner which she will start on 07/25/2023.?? This is an injection that you will need to receive instruction from your primary care provider for.?? It is to be given every day.?? This will help reduce the clot. ?? You will need to follow-up with gastroenterology for repeat upper endoscopy to evaluate for varicesin approximately 2 weeks.?? Will also need a repeat ultrasound of your liver in 6 months to assess the clot. ?? You also need to continue on an antibiotic for 3 days to prevent infection in your abdomen.?? You will be on another antibiotic for a total of 8 days to prevent C. difficile infection. Discharge Orders You Need to Schedule the Following Appointments Follow Up with??Michelle Fatima MD When:??Within 1 week Where: [address] [place] [address] [address] [place] [address]- Discharge Medications MERLIN ALVAREZ :1955 Visit Date:07/11/2023 Medications: Please continue your medications until treatment is completed or stopped by your provider. Medications not listed below should be discontinued. Discuss any questions related to medications with your provider. What How Much When Instructions Next Dose New Ciprofloxacin (ciprofloxacin 500 mg oral tablet) 1 tab(s) Oral Every 12 hours Duration: 3 Days [facility] [place] [address] [facility] Pyridoxine (pyridoxine 50 mg oral tablet) 50 Milligram Oral Daily Pickup at [address] 07/18 New Vancomycin (vancomycin 125 mg oral capsule) 1 capsule Oral Daily Duration: 10 Days Pickup at [address] 07/18 Changed Furosemide (furosemide 40 mg oral tablet) 1 tab(s) Oral Daily Pickup at [address] 07/18 Changed Lactulose (lactulose 10 gm/ 15 ml oral syrup) 15 Milliliter Oral 3 times a day Pickup at [place] [address] 9AM / 3PM / 9PM Changed Pantoprazole (pantoprazole 40 mg oral delayed release tablet) 1 tab(s) Oral Twice a day Pickup at [address] Unchanged Bisacodyl (bisacodyl 10 mg rectal suppository) 1 suppository(ies) Per rectum Twice a day as needed for Constipation [facility] Unchanged Cyanocobalamin (Vitamin B12 1000 mcg oral tablet) 1 tab(s) Oral Daily [facility] 07/18 Unchanged Docusate (docusate sodium 150 mg/ 15 ml oral liquid) 10 Milliliter Oral Twice a day as needed for Constipation [facility] Unchanged Ergocalciferol (Vitamin D 82737 iu oral capsule) 50,000 International Unit Oral Every week Por instrucciones Unchanged Ferrous Sulfate (ferrous sulfate 325 mg oral enteric coated tablet) 1 tab(s) Oral Daily [place] Unchanged Folic Acid (folic acid 1 mg oral tablet) 1 Milligram Oral Daily [facility] 07/18 Unchanged HydrOXYzine (hydrOXYzine hydrochloride 25 mg oral tablet) 1 tab(s) Oral 4 times a day as needed for for anxiety [facility] Unchanged Methadone (Methadone Tablet) 50 Milligram Oral Daily [facility] 07/18 AM Unchanged Rifaximin (rifAXIMin 550 mg oral tablet) 1 tab(s) Oral Twice a day Pickup at [place] [address] [facility] Unchanged Spironolactone (spironolactone 100 mg oral tablet) 1 tab(s) Oral Daily Pickup at [address] 07/18 AM Unchanged Thiamine (thiamine 100 mg oral tablet) 100 Milligram Oral Daily [facility] 07/18 AM [facility]: [address] [place], [place] [id number] [phone] ?? What How Much When Comments Stop Taking Miscellaneous Rx (Labs: Daily INR) See instructions Send results to PCP Dr. Akua BHATT and INR clinic at [address] [place] [address] [address] [place] [id number] Dx: Portal Vein thrombosis ICD I81 ?? Stop Taking Warfarin (warfarin 3 mg oral tablet) 1 tab(s) Oral Daily Duration: 30 Days Daily INR Please follow up with INR clinic ?? Test Results Below is a partial list of the most recent Laboratory test results done prior to this discharge. You may have had other tests and procedures not included in this list. Please discuss all test resultswith your provider. Est Creatinine Clearance - 81.27 mL/min (07/16/2023) Alk Phos (07/13/2023) ???Alkaline Phosphatase - 72 units/L ALT (07/13/2023) ???ALT (SGPT) - 20 units/L Ammonia Venous (07/11/2023) ???Ammonia, Venous - 87 ??mole/L AST (07/13/2023) ???AST (SGOT) - 36 units/L Basic Metabolic Panel (07/14/2023) ???Sodium - 133 mmol/L???Potassium - 4.8 mmol/L???Chloride - 97 mmol/L???Bicarbonate Level - 23 mmol/L???Anion Gap - 13???Glucose Level - 146 mg/dL???BUN - 13 mg/dL???Creatinine-Blood - 0.9 mg/dL???Estimated GFR Creatinine - 94 ML/MIN/1.73 M2???Calcium - 8.9 mg/dL Bilirubin Total + Direct (07/13/2023) ???Bilirubin, Total - 1.7 mg/dL???Bilirubin, Direct - 0.5 mg/dL???Bilirubin, Indirect - 1.2 mg/dL BUN (07/13/2023) ???BUN - 12 mg/dL CBC (07/16/2023) ???WBC - 3.8 k/mm3???RBC - 4.24 m/mm3???Hgb - 13.4 Gm/dL???Hct - 40.0 %???MCV - 94.3 femtoliters???MCH - 31.6 pg???MCHC - 33.5 g/dL???Platelet Count - 64 k/mm3???RDW-SD - 47.8 femtoliters???MPV - 11.1 femtoliters???Nucleated RBC (Automated) - 0.0 #/100 WBC'S???Abs. NRBC - 0.0 k/mm3 CBC w/ Differential (07/13/2023) ???WBC - 2.4 k/mm3???RBC - 3.77 m/mm3???Hgb - 11.7 Gm/dL???Hct - 36.7 %???MCV - 97.3 femtoliters???MCH - 31.0 pg???MCHC - 31.9 g/dL???Platelet Count - 63 k/mm3???RDW-SD - 50.0 femtoliters???MPV - 10.2 femtoliters???Nucleated RBC (Automated) - 0.0 #/100 WBC'S???Abs. NRBC - 0.0 k/mm3???Abs. Neut - 1.2 k/mm3???Abs. Lymph - 0.7 k/mm3???Abs. [place] - 0.2 k/mm3???Abs. Eo - 0.2 k/mm3???Abs. Baso - 0.0 k/mm3???Neut % - 50.0 %???Lymph % - 29.8 %???[place] % - 9.1 %???Eos % - 9.5 %???Baso % - 1.2 %???Imm Gran- 0.4 %???Abs. Imm Gran - 0.0 k/mm3 Comprehensive Metabolic Panel (07/16/2023) ???Sodium - 133 mmol/L???Potassium - 4.0 mmol/L???Chloride - 98 mmol/L???Bicarbonate Level - 28 mmol/L???Anion Gap - 7???Glucose Level - 153 mg/dL???BUN - 16 mg/dL???Creatinine-Blood - 0.8 mg/dL???Estimated GFR Creatinine - 97 ML/MIN/1.73 M2???Calcium - 8.5 mg/dL???Protein, Total - 7.3 Gm/dL???Album in - 3.3 Gm/dL???AG Ratio - 0.8???Alkaline Phosphatase - 78 units/L???AST (SGOT) - 35 units/L???ALT(SGPT) - 22 units/L???Bilirubin, Total - 1.1 mg/dL COVID-19, RSV, and Flu A/B, Rapid PCR (07/10/2023) ???Influenza A PCR - NEGATIVE???Influenza B PCR - NEGATIVE???RSV PCR - NEGATIVE???COVID-19 PCR Specimen Source - NASAL???COVID-19 PCR Result - NEGATIVE Creatinine (07/13/2023) ???Creatinine-Blood - 0.9 mg/dL???Estimated GFR Creatinine - 95 ML/MIN/1.73 M2 Electrolytes (07/13/2023) ???Sodium - 140 mmol/L???Potassium - 3.8 mmol/L???Chloride - 105 mmol/L???Bicarbonate Level - 28 mmol/L???Anion Gap - 7 Glucose Level (07/13/2023) ???Glucose Level - 71 mg/dL GLUCOSE POC (07/15/2023) ???Glucose, POC - 117 mg/dL H + H (07/15/2023) ???Hgb - 13.0 Gm/dL???Hct - 40.0 % Hepatic Function Panel (07/14/2023) ???Protein, Total - 7.7 Gm/dL???Albumin - 3.7 Gm/dL???Alkaline Phosphatase - 84 units/L???AST (SGOT) - 56 units/L???ALT (SGPT) - 25 units/L???Bilirubin, Total - 2.2 mg/dL???Bilirubin, Direct - 0.5 mg/dL???Bilirubin, Indirect - 1.7 mg/dL Hold Blue Top Tube (07/10/2023) ???Hold Blue Top - SPECIMEN DISCARDED AFTER 4 HOURS. HOLD LAVENDER TUBE (07/15/2023) ???Hold Lavender Top - SPECIMEN DISCARDED AFTER 24 HOURS. INR (07/14/2023) ???INR - 1.4???Protime (PT) - 14.8 seconds Lactic Acid Level (07/10/2023) ???Lactate - 1.7 mmol/L Lipase (07/10/2023) ???Lipase - 107 units/L Magnesium Level (07/14/2023) ???Magnesium - 1.6 mg/dL Mg Level (07/16/2023) ???Magnesium - 1.8 mg/dL Phosphorus Level (07/16/2023) ???Phosphorus - 2.4 mg/dL PT (INR) (07/16/2023) ???INR - 1.5???Protime (PT) - 15.4 seconds PTT (07/11/2023) ???APTT - 27.1 seconds Allergies (NKA means No Known Allergies) traZODone Problems Active Problems??(12) Essential hypertension?? Hepatic cirrhosis due to chronic hepatitis C infection?? History of alcohol abuse?? History of hepatitis C virus infection s/p ledipasvir/sofosbuvir in 2016?? History of small bowel obstruction?? History of transjugular intrahepatic portosystemic shunt?? Long-term current use of methadone for opiate dependence?? Portal hypertension?? Portal vein thrombosis?? Severe obesity?? Tobacco dependence?? Ventral hernia with recurrent incarceration and small bowel obstruction?? Education Materials Below is the list of Educational Leaflet Providered with your Discharge Instructions. Cirrhosis?? Tests for Liver Disease?? Valuables and Belongings I fully understand and agree that [facility] accepts no responsibility for all my personal property including clothing, toilet articles, radios, jewelry, dentures, hearing aids, rings, money, or any other property that is in my possession or is brought to me after admission. I understand certain valuables may be placed in a hospital safe for a short period of time. I understand that the hospital is not liable for loss or damage due to accident, fire, or other natural occurrence while said property is in the safe. I accept full responsibility for any personal property that I keep with me, and will not hold the hospital responsible in case of loss or disappearance. I acknowledge that i have been encouraged to send valuables and belongings home. ?? Review of Valuable and Belonging List: With patient Date for Pt to Sign Valuables/Belongings: 07/14/23 02:57:00 ?? Other Discharge Information ? Pulmonary Rehab Status?? Pulmonary Rehab Discharge Status?? Respiratory Rate: 18 br/min ? Common Emergency Awareness Tips IS IT A STROKE? Act FAST and Check for these signs: FACE Does the face look uneven? ARM Does one arm drift down? SPEECH Does their speech sound strange? TIME Call at any sign of stroke ?? Heart Attack Signs Chest discomfort: Most heart attacks involve discomfort in the center of the chest and lasts more than a few minutes, or goes away and comes back. It can feel like uncomfortable pressure, squeezing, fullness or pain. Discomfort in upper body: Symptoms can include pain or discomfort in one or both arms, back, neck, jaw or stomach. Shortness of breath: With or without discomfort. Other signs: Breaking out in a cold sweat, nausea, or lightheaded. Remember, MINUTES DO MATTER. If you experience any of these heart attack warning signs, call to get immediate medical attention! ?? Smoking can increase your chances of developing chronic health problems and can cause harmful effects to other family members in your house. If you smoke, you are strongly encouraged to quit. Please call [facility] [employer] [facility] at [phone] or [phone]) or log in to [email or web address] for referrals to smoking cessation programs. ?? 107 Suicide & Crisis Lifeline is available 25/01 if you or someone you know needs to find a reason to keep living. By calling 140 you'll be connected to a skilled, trained counselor at a crisis center in your area. INPATIENT DISCHARGE INSTRUCTIONS SIGNATURE MERLIN BAILEY Location:[facility] Registration Date and Time:07/11/2023 04:01 EST Primary Care Physician: Akua BHATT, Michelle Avalos, Attending Physician: Cheyanne BHATT, Gris Rose, I MERLIN ALVAREZ, have received the above patient education materials/instructions and have verbalized understanding. If ambulance or transport services are being used I further acknowledge being given a choice of service. ?? If you need to contact me, please call me at this number: . Patient/Manager Housekeeping Name: Patient/Manager Housekeeping Signature: Relationship to Patient: Witness Name/Signature: Date: * Yariel Velazquez DO: PERFORM Event Display: Patient Education Leaflets Authored Date: [id number] Cirrhosis ?? [id number] Cirrosis El h??gado est?? ubicado en el lado derecho del abdomen. Est?? matt debajo de la caja tor??cica. El h??gado tiene muchas funciones importantes. Elimina las toxinas de la davis. Tambi??n ayuda con la coagulaci??n de la davis para detener el sangrado.??La cirrosis es inocente consecuencia de cicatrizaciones y lesiones del h??gado. Gilma da??o es permanente. Puede hacer que el h??gado deje de funcionar(insuficiencia hep??davis).?? Las causas m??s comunes de cirrosis son el consumo excesivo de alcohol a anisha plazo y tener hepatitis??B o??C. Otras causas son la esteatohepatitis no alcoh??lica (EHNA, o enfermedad del h??gado graso), inocente enfermedad autoinmunitaria, la hemocromatosis, las toxinas, ciertos medicamentos y determinados virus. Entre los s??ntomas comunes de la cirrosis se incluyen los siguientes: ??? Cansancio o debilidad ??? P??rdida del apetito ??? N??useas y v??mitos ??? Tendencia al sangrado y a los moretones ??? Hinchaz??n del vientre (abdominal) ??? P??rdida de peso ??? Color amarillento en los ojos o en la piel (ictericia) ??? Picaz??n ??? Confusi??n El tratamiento apunta a atender los s??ntomas y evitar un da??o mayor al h??gado. Tambi??n puede recibir tratamiento para combatir o curar el virus de la hepatitis. Dejar el consumo del alcohol ayudar?? a detener el avance de la enfermedad. Tambi??n puede evitar complicaciones futuras. Si la cirrosis avanza y se convierte en inocente amenaza para la brenda, se puede considerar un trasplante de h??gado en algunos casos.?? Cuidados en el hogar ??? Evite los medicamentos que pueden empeorar el da??o al h??gado.??El proveedor de atenci??n m??dica le explicar?? si es necesario cambiar alguno de los medicamentos que eboni. Hable con sharma proveedor de atenci??n m??dica o farmac??utico antes de jeronimo cualquier medicamento no recetado. [place] incluye cualquier medicamento de venta keri, suplementos diet??ticos y medicamentos a base de hierbas. Ciertas sustancias pueden empeorar el da??o hep??carlito. ??? Hable con sharma proveedorde atenci??n m??dica sobre los medicamentos que contienen paracetamol o los analg??sicos antinflamatorios no esteroideos (COLE), awais el ibuprofeno y el naproxeno.??Estos pueden da??ar el h??gado y los ri??ones. ??? Deje de consumir alcohol.??Si le resulta dif??cil dejar de beber, busque ayuda profesional. Considere entrar en un bhavya de Alcoh??licos An??nimos u otro tipo de programa de tratamiento para obtener apoyo. Pida a los proveedores informaci??n sobre c??mo desintoxicarse o sobre centros de rehabilitaci??n. ??? Si se inyecta drogas, tiene mayor riesgo de contraer hepatitis??B y??C. Busque ayuda para dejar de hacerlo.? Ynes ejercicio f??sico con regularidad y mantenga sharma peso dentro de los l??mites normales. Busque ayuda de sharma proveedor si esto le resulta dif??cil. Tratar cualquier afecci??n metab??lica subyacente. [place] es muy importante porque las afecciones metab??licas awais la obesidad, la presi??n arterial jonh, las enfermedades del coraz??n, la diabetes y el colesterol alto pueden causar inocente enfermedad del h??gado o empeorarla. ??? Preg??ntele al proveedor de atenci??n m??dica sobre las vacunas recomendadas. Estas incluyen las vacunas contra virus que pueden causar enfermedades hep??aisha. ?? Atenci??n de seguimiento Programe inocente layla de seguimiento con el proveedor de atenci??n m??dica, o seg??n le hayan indicado.Si tiene cirrosis, es posible que necesite pruebas para revisar si hay complicaciones, awais c??ncerde h??gado. Cumpla con las citas de seguimiento. Es importante hacer un seguimiento phyllis de susalud general y de jackie valores de laboratorio. Para obtener m??s informaci??n sobre la existencia de grupos de apoyo para personas con enfermedad hep??davis, comun??quese con las siguientes instituciones: ??? [facility] (Fundaci??n estadounidense del h??gado) : www.[facility]foundation.org ??? [facility]: www.[facility].org/patients ?? Cu??ndo debe buscar atenci??n m??dica Llame de inmediato al proveedor de atenci??n m??dica en los siguientes casos: ??? Sube r??pidamentede peso, con un aumento del rafael??o del vientre (abdomen) o hinchaz??n de las piernas ??? Ictericia(color amarillo en la piel o los ojos) que aumenta ??? Exceso de sangrado de los hawkins o heridas ??? V??mitos o heces con davis ?? Last Reviewed Date: 2021 ?? [id number] [facility] Reviews & Information. Todos los derechos reservados. Esta informaci??n no pretende sustituir la atenci??n m??dica profesional. S??lo sharma m??dico puede diagnosticar y tratar un problema de laura. ?? * Marcus MOLINA, Yariel Rodriguez: PERFORM Event Display: Patient Education Leaflets Authored Date: [id number] Tests for Liver Disease ?? [id number] Pruebas comunes para las enfermedades hep??aisha En esta hoja, se describen algunas pruebas comunes que se hacen para el diagn??stico o tratamiento de los trastornos del h??gado. El proveedor de atenci??n m??dica le dir?? qu?? pruebas necesita. An??lisis de davis para examinar el h??gado Los an??lisis de davis pueden ayudar a determinar c??mo est?? funcionando sharma h??gado. Se puede jeronimo inocente cantidad tyler??a de davis y analizarla para determinar brett o m??s de los siguientes factores: ??? Alfafetoprote??na (AFP). Se trata de inocente prote??na producida por el h??gado. En los adultos, unnivel alto de alfafetoprote??na en la davis puede se??alar la existencia de c??ncer de h??gado. ??? Alb??se. Es inocente prueba de la funci??n hep??davis. Mide inocente prote??na producida por el h??gado.??Cuando inocente persona tiene inocente enfermedad hep??davis, el nivel de alb??se en la davis (seroalb??se)suele ser bajo. ??? Fosfatasa alcalina. Es inocente enzima producida mayormente en el h??gado y en los huesos. Puede medirse mediante un an??lisis de davis. Un nivel alto de esta enzima se??ala la existencia de un problema en los conductos biliares del h??gado. ??? Alanina aminotransferasa (ALT). La ALT es inocente enzima producida por el h??gado. Cuando el h??gado est?? da??ado, dicha enzima pasa a la davis. Si en un an??lisis de davis se detecta un nivel alto de alanina aminotransferasa, puede ser un signo de problemas hep??ticos, awais inflamaci??n, formaci??n de tejido cicatricial o un tumor. ???Aspartato aminotransferasa (AST). La AST es otra enzima producida por el h??gado, as?? awais por otros ??rganos, tales awais un m??sculo. Tambi??n se mide mediante un an??lisis de davis. Un nivel altode esta enzima puede se??alar la existencia de lesiones en el h??gado, especialmente si tambi??n hay un nivel alto de alanina aminotransferasa. ??? Bilirrubina. Es inocente prueba de la funci??n hep??davis. Es inocente sustancia que se produce por la descomposici??n de los gl??bulos rojos. El h??gado recoge esta sustancia y, luego, la expulsa del cuerpo con las heces. Cuando hay algo que no funciona janae enel h??gado o en los conductos biliares, la bilirrubina puede acumularse en el cuerpo. [place] produce ictericia (coloraci??n amarillenta en la piel y en la membrana viktoria del gabriel). La bilirrubina se puede medir de dos maneras:?? bilirrubina total y bilirrubina directa. Inocente enfermedad hep??davis o la existencia de inocente obstrucci??n en los conductos biliares pueden causar un nivel alto de bilirrubina. Un nivel alto de bilirrubina indirecta puede significar que padece inocente afecci??n llamada s??ndrome de Gilbert. Muy pocas personas tienen s??ndrome de Gilbert.??Gilma no es un signo de enfermedad.??Un valor alto de bilirrubina indirecta puede tambi??n ser un s??ntoma de descomposici??n r??pida de los gl??bulos rojos. ??? An??lisis de daivs completo. Es inocente prueba en la que se miden los niveles de to dos los componentes de la davis. Es decir, gl??bulos rojos, gl??bulos blancos y plaquetas. Los resultados an??malos de estos an??lisis pueden ser se??al de infecci??n o enfermedad. Tambi??n pueden indicar la existencia de un problema en el bazo. Se trata de un ??rgano cercano al h??gado que puede verse afectado por las enfermedades hep??aisha. Un recuento bajo de plaquetas es com??n en casos de fibrosis avanzada del h??gado. Tambi??n sucede cuando el bazo se agranda y comienza a absorber plaquetas. ??? Gamma-glutamil transpeptidasa. Es inocente enzima hep??davis que, con frecuencia, se mide junto con otras enzimas para detectar problemas en el h??gado. Se mide mediante un an??lisis de davis. Sihay un nivel elevado en la davis de la fosfatasa alcalina y de la gamma-glutamil transpeptidasa, puede ser un signo de que los conductos biliares del h??gado est??n da??ados u obstruidos. Tambi??n puede ser un signo de h??gado graso o de da??o por alcoholismo. ??? Glucosa. Es az??car en la davis y es la velma de energ??a m??s importante del cuerpo. Un h??gado hussain ayuda al cuerpo a mantener unnivel normal de glucosa. Si en un an??lisis de davis se detecta que el nivel de glucosa es bajo, esto puede significar que el h??gado no est?? funcionando correctamente. ??? Hepatitis infecciosa. Esuna enfermedad y se puede detectar con pruebas de anticuerpos y ant??genos para la hepatitis A, B, C, D y E. En raras ocasiones, otros virus (awais el virus de Dago-Taveras [EBV, por sharma sigla en ingl??s], que causa la mononucleosis, y el citomegalovirus [CMV]) pueden causar hepatitis. ??? El tiempo de protrombina (PT, por sharma sigla en ingl??s) y el cociente internacional normalizado (INR, por sharma sigla en ingl??s). Miden la capacidad de coagulaci??n de la davis. El h??gado produce inocente prote??na que ayuda en la coagulaci??n. Los problemas de coagulaci??n pueden ser un signo de enfermedad hep??davis. ??? 5NT (5'-nucleotidasa). Esta enzima se produce en varios ??rganos, selvin solo el h??gado la libera a la davis. Un nivel alto o bajo podr??a ser un signo de enfermedad hep??davis. ? cido biliar s??rico (SBA, por sharma sigla en ingl??s). En esta prueba, se mide la cantidad de ??cido biliar presente en la davis. Un nivel alto de gilma ??cido puede significar que los conductos biliares est??n bloqueados o que el h??gado no puede excretar el ??cido biliar. Esta prueba se hace en raras ocasiones. ??? Vitaminas A, D, E y K.??Se almacenan en el h??gado y la grasa y se liberan con el tiempo (son solubles en grasa). Las absorbe el h??gado con ayuda de la bilis. Si se observa en un an??lisis de davis que los niveles de estas vitaminas son bajos, podr??a significar que el h??gado no las absorbe de forma adecuada. ??? Zinc. Es un nutriente que se absorbe en el h??gado. Si se observa un nivel bajo de zinc en el an??lisis de davis, podr??a significar que el h??gado no absorbe el zinc correctamente. [place] puede empeorar las afecciones causadas por niveles altos de rhianna??aco. Se pueden hacer otros an??lisis de laboratorio para detectar problemas hep??ticos espec??ficos inocente vez que se encuentra da??o en el h??gado. Entre ellos, se encuentran los siguientes: ??? Anticuerposautoinmunitarios ??? Ceruloplasmina (enfermedad de Kel) ??? Examen de ramsey (hemocromatosis) ??? Kristian-1 antitripsina (deficiencia de [id number]) ?? Otras pruebas para controlar el h??gado Las siguientes pruebas pueden hacerse para controlar el funcionamiento o el estado del h??gado. Conestas pruebas, tambi??n se pueden revisar ??rganos relacionados, awais la ves??cula biliar y los conductos biliares. ??? Biopsia del h??gado.??Se trata de inocente prueba para detectar da??o en el tejido hep??carlito. Se utiliza inocente aguja para extraer inocente tyler??a muestra de tejido del h??gado. Esta muestrase examina en el laboratorio para determinar si hay signos de inflamaci??n, formaci??n de tejido cicatricial u otros problemas. ??? Tomograf??a computarizada.??Es inocente serie de radiograf??as donde se observa inocente imagen tridimensional del h??gado y de la ves??cula biliar. Mediante gilma estudio, se puede determinar si hay c??lculos, abscesos, vasos sangu??neos anormales o tumores. ??? Colangiopancreatograf??a retr??grada endosc??pica. Es inocente prueba en la que se puede detectar si existe obstrucci??n o estrechamiento de los conductos biliares. Tambi??n se pueden jeronimo im??genes de la ves??cula biliar. Se introduce un endoscopio (un tubo tyler??o y flexible) por la boca. El endoscopio se pasa a umesh??s del es??fago y del est??kaushal, hasta la parte superior del intestino higgins. All?? desembocanlos conductos biliares. Se introduce un medio de contraste a umesh??s del endoscopio para facilitar la visualizaci??n de los conductos biliares en las radiograf??as. El proveedor de atenci??n m??dica puede introducir instrumentos por el endoscopio para jeronimo muestras de tejido o de l??quidos. Estas muestras se env??an a un laboratorio para sharma an??lisis. ??? Gammagraf??a con ??cido iminodiac??carlito hepatobiliar. Se hace para revisar la funci??n de la ves??cula biliar o del h??gado. Se inyecta un l??quido conocido awais trazador o marcador radiactivo en el cuerpo. A medida que gilma l??quido se desplaza a umesh??s del h??gado hacia la ves??cula biliar y el intestino, puede verse en la gammagraf??a. El marcador puede mostrar d??nde hay falta o bloqueos de los conductos biliares. Puede mostrar si la ves??cula biliar est?? funcionando correctamente. Tambi??n puede mostrar otros problemas en los conductos biliares. ??? Resonancia magn??davis.??En esta prueba, se usan imanes, ondas de radio y inocente computadora para crear inocente imagen de los ??rganos y tejidos del cuerpo. ??? Colangiopancreatograf??apor resonancia magn??davis. Es un tipo de resonancia magn??davis m??s detallada que la resonancia magn??davis est??ndar. Puede revelar conductos biliares anormales o estrechados, o c??lculos biliares. ??? Ecograf??a (sonograma).??En esta prueba se emplean ondas sonoras inofensivas y inocente computadora para crear inocente imagen del h??gado, la ves??cula biliar y los conductos biliares.??Puede detectar c??lculos, tumores o grasa en el h??gado. Tambi??n se utiliza para revisar el estado de los vasos sangu??neos y para buscar acumulaciones de bilis donde pueda kary p??rdida de bilis del h??gado.??Un tipo de ecograf??a especial llamado elastograf??a proporciona m??s informaci??n sobre la fibrosis en el h??gado (cirrosis). ?? Last Reviewed Date: 2022 ?? [facility] Reviews & Information. Todos los derechos reservados. Esta informaci??n no pretende sustituir la atenci??n m??dica profesional. S??lo sharma m??dico puede diagnosticar y tratar un problema de laura. ?? Patient Care team information Care Team Personnel Name: Michelle Fatima MD Position: [facility] Outreach Member Role: PCP Address: Address: [address] [place] [address] [address] [place] [address]- [place] Name: Sybil Orellana RN Position: [facility] SN RN Member Role: Primary Care Nurse Name: Francisca Krishnamurthy RN Position: [facility] RN Member Role: Primary Care Nurse Name: Nicolle Parra RN Position: [facility] RN Member Role: Primary Care Nurse Name: Nika Hoffman RN Position: [facility] RN Member Role: Primary Care Nurse Name: Pratibha Real RN Position: [facility] RN Member Role: Primary Care Nurse Name: Cary Foster RN Position: [facility] RN Member Role: Primary Care Nurse Name: Jose Antonio Leigh III, RN Position: [facility] RN Member Role: Primary Care Nurse Name: Gris Coleman RN Position: [facility] RN Member Role: Primary Care Nurse Name: Destini Eller NP Position: Reference Physician Member Role: Primary Care Nurse Address: Address: [address] [place] [id number] [place] Name: Jonas Espino RN Position: [facility] RN Member Role: Primary Care Nurse Name: Aye Ruth RN Position: [facility] Land Economist Member Role: Primary Care Nurse Name: Jonas Guevara RN Position: [facility] RN Member Role: Primary Care Nurse Name: Darleen Bello RN Position: [facility] RN Member Role: Primary Care Nurse Name: Kathi DAMON Attending Position: [facility] ED Medicine MD Name: Darnell Jj Position: [facility] ED TA [facility] Member Role: User Support Analyst Supervisor Name: Consuelo Shafer RN Position: [facility] ED RN W/OE and Tasks Member Role: Patient Care Provider Care Team Related Persons Name: ADILIA ALVAREZ Address: [address] [place] [address] Name: MERLIN ALVAREZ Address: [place] [address]
--- OUTSIDE RECORDS SUMMARY | 2023-10-03 09:46 | XMS_ITS | Continuity of Care Document ---
Author Name Unknown Organization [facility] ter Address [address] [place] [id number]- Care Team Providers Care Spring Fitter Helper Name Role Phone Michelle Fatima MD Primary Care Physician Encounter [facility] Date(s): 10/20/19 - 10/20/[address] [address]- [facility] Discharge Disposition: Transferred to short-term general hospit Attending Physician: Mariann Cody MD Admitting Physician: Mariann Cody MD Referring Physician: Not on Staff, Referring MD Allergies, Adverse Reactions, Alerts Substance Reaction Severity Status traZODone Active Immunizations Given and Recorded Vaccine Date Status Refusal Reason tetanus/diphtheria/pertussis, acel(Tdap) 06/04/19 Given Medications albumin human 25% intravenous solution 100 mL = 25 Gm, IV Infusion, Every 6 hours, # 100 mL, 0 Refills, Soft Stop, 12/19/18 21:00:00 EDT Start Date: 12/19/18 Status: Ordered bisacodyl 10 mg rectal suppository 1 supp = 10 mg, Rectally, 2 times a day, PRN Constipation, 0 Refills, Maintenance, 12/19/18 20:59:05 EDT, Suppository Start Date: 12/19/18 Status: Ordered docusate sodium 150 mg/15 ml [...] 12:15:11 EST Start Date: 08/19/16 Status: Ordered lactulose 10 gm/15 ml oral syrup 30 mL = 20 Gm, Orogastric Tube, 3 times a day, 0 Refills, Maintenance, 12/19/18 20:59:24 EDT, Syrup Start Date: 12/19/18 Status: Ordered lactulose 10 gm/15 ml oral syrup 15 mL = 10 Gm, By Mouth, 3 times a day, 0 Refills, Maintenance, 10/31/17 7:51:17 EDT Start Date: 10/31/17 Status: Ordered Methadone Tablet = 50 mg, By Mouth, Daily, 0 Refills, Maintenance, 07/07/15 15:19:33 EST Start Date: 07/07/15 Status: Ordered midodrine 5 mg oral tablet 10 mg, By Mouth, 3 times a day, Refills 0, Maintenance, 12/19/18 20:59:25 EDT Start Date: 12/19/18 Status: Ordered pantoprazole 40 mg oral delayed release tablet 1 tablet = 40 mg, By Mouth, Daily, # 90 tablet, 0 Refills, Maintenance, 10/31/17 7:49:45 EDT, EC Tablet Start Date: 10/31/17 Status: Ordered Potassium Chloride Packet = 40 mEq, By Mouth, Every 4 hours, PRN Other, for Potassium level 3.0 to 4.1 for Patient able to take PO or has NG/G-tube, 0 Refills, Maintenance, 12/19/18 20:59:38 EDT, Packet Start Date: 12/19/18 Status: Ordered rifAXIMin 550 mg oral tablet = 550 mg, Orogastric Tube, 2 times a day, 0 Refills, Maintenance, 12/19/18 20:59:36 EDT, Tablet Start Date: 12/19/18 Status: Ordered rifaximin 550 mg oral tablet 1 tablet = 550 mg, By Mouth, 2 times a day, # 60 tablet, 0 Refills, Maintenance, 10/31/17 7:50:19 EDT, Tablet Start Date: 10/31/17 Status: Ordered spironolactone 100 mg oral tablet 100 mg, 1, tablet, By Mouth, Daily, # 90 tablet, Refills 0, Maintenance, 10/31/17 7:50:00 EDT Start Date: 10/31/17 Status: Ordered thiamine 100 mg oral tablet 100 mg, By Mouth, Daily, Refills 0, Maintenance, 12/19/18 20:59:42 EDT Start Date: 12/19/18 Status: Ordered Vitamin B12 1000 mcg oral tablet 1 tablet = 1,000 mcg, By Mouth, Daily, # 90 tablet, 0 Refills, Maintenance, 10/31/17 7:51:48 EDT, Tablet Start Date: 10/31/17 Status: Ordered Vitamin D 66423 iu oral capsule 50,000 International_Units, 1, capsule, By Mouth, Every week, Refills 0, Maintenance, 10/31/17 7:51:00 EDT Start Date: 10/31/17 Status: Ordered warfarin 2.5 mg oral tablet 1-2 tablet, By Mouth, Daily, 0 Refills, Maintenance, 10/31/17 7:50:34 EDT Start Date: 10/31/17 Status: Ordered Problem List Condition Effective Dates Status Health Status Inform ant 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 Essential hypertension(Confirmed) Active 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 History of alcohol abuse(Confirmed) Active History of small bowel obstruction(Confirmed) Active History of hepatitis C virus infection s/p ledipasvir/sofosbuvir in 2016(Confirmed) Active Ventral hernia with recurren t incarceration and small bowel obstruction(Confirmed) Active Long-term current use of met hadone for opiate dependence(Confirmed) Active Portal hypertension(Confirmed) Active Portal vein thrombosis(Confirmed) Active Tobacco dependence(Confirmed) Active Vital Signs Most recent to oldest [Reference Range]: 1 2 3 Height 158 cm (10/20/19 11:39 AM) Weight 83.3 kg (10/20/19 11:39 AM) Oxygen Saturation [94-100 %] 93 % *L* (10/20/19 1:00 PM) 97 % (10/20/19 12:00 PM) 98 % (10/20/19 8:00 AM) Pulse Rate [55-90 bpm] 93 bpm *H* (10/20/19 11:39 AM) 100 bpm *H* (10/20/19 8:00 AM) 101 bpm *H* (10/20/19 7:39 AM) Body Mass Index [18.5-24.99] 33.37 *>HHI* (10/20/19 11:39 AM) Blood Pressure [90-138/55-84 mm Hg] 107/63mm Hg (10/20/19 1:00 PM) 129/81mm Hg (10/20/19 12:00 PM) 115/45mm Hg (10/20/19 11:39 AM) Respiratory Rate [16-30 br/min] 10 br/min *L* (10/20/19 1:00 PM) 14 br/min *L* (10/20/19 12:00 PM) 21 br/min (10/20/19 11:39 AM) Temperature [96.8-100.4 DegF] 97.9 DegF (10/20/19 1:00 PM) 98.8 DegF (10/20/19 11:39 AM) 98.1 DegF (10/20/19 7:39 AM) Mode of Delivery (Oxygen) Room air (10/20/19 1:00 PM) Room air (10/20/19 12:00 PM) Room air (10/20/19 8:00 AM) Blood pressure sites Arm, right (10/20/19 1:00 PM) Arm, left (10/20/19 12:00 PM) Arm, left (10/20/19 11:39 AM) Temperature Route Oral (10/20/19 1:00 PM) Oral (10/20/19 11:39 AM) Oral (10/20/19 7:39 AM) Dry Weight 83.3 kg (10/20/19 11:39 AM) Weight Obtained Via Bed scale (10/20/19 11:39 AM)
--- OUTSIDE RECORDS SUMMARY | 2023-10-03 09:46 | XMS_ITS | Continuity of Care Document ---
Author Name Unknown Organization [facility] Address [address] [place] [address]- Care Team Providers Care Non Destructive Testing Technician Name Role Phone Michelle Fatima MD Primary Care Physician [phone] Encounter [facility] Date(s): 08/05/23 - 09/08/23 [facility] [address] [place] [address]- Attending Physician: Errol Rodriguez MD Admitting Physician: Errol Rodriguez MD Referring Physician: Michelle Fatima MD Allergies, Adverse Reactions, Alerts Substance Reaction [...] 07/17/23 9:01:00 EST, Route to Pharmacy Electronically, [facility], Partial fill upon patient [...] 0 Refills, Maintenance, 07/17/23 9:01:00 EST, Syrup, [facility], Partial fill upon patient request if the prescription is for a schedule II opioid drug., 15 mL By Mouth 3 times a day, 1... Start Date: 07/17/23 Status: Ordered Methadone Tablet = 50 mg, By Mouth, Daily, 0 Refills, Maintenance, 07/07/15 15:19:33 EST Start Date: 07/07/15 Status: Ordered pantoprazole 40 mg oral delayed [...] 07/17/23 9:03:00 EST, Route to Pharmacy Electronically, [facility], Partial fill upon patient request if theprescription is for a schedule II opioid drug., 168... Start Date: 07/17/23 Status: Ordered rifAXIMin 550 mg oral tablet 1 tablet = 550 mg, By Mouth, 2 times a day, # 60 tablet, 0 Refills, Maintenance, 07/17/23 9:02:00 EST, Tablet, [facility], Partial fill upon patient request if the prescription is for aschedule II opioid drug., 168, cm, 07/17/23 8:26:00... Start Date: 07/17/23 Status: Ordered spironolactone 100 mg oral tablet 100 mg, 1, tablet, By Mouth, Daily, # 30 tablet, Refills 0, Tot. Refills 0, Maintenance, 07/17/23 9:02:00 EST, Route to Pharmacy Electronically, [facility], Partial fill upon patient [...] Start Date: 10/31/17 Status: Ordered Vitamin D 05749 iu oral capsule 50,000 International_Units, 1, capsule, [...] obesity Confirmed Active Tobacco dependence Confirmed Active Patient Care team information Care Team Personnel Name: Michelle Fatima MD Position: S Outreach Member Role: PCP Address: Address: [address] [place] [address]- [place] Name: Sybil Orellana RN Position: [facility] SN RN Member Role: Primary Care Nurse Name: Francisca Krishnamurthy RN Position: [facility] RN Member Role: Primary Care Nurse Name: Nicolle Parra RN Position: [facility] RN Member Role: Primary Care Nurse Name: Nika Hoffman RN Position: [facility] RN Member Role: Primary Care Nurse Name: Pratibha Real RN Position: [facility] RN Member Role: Primary Care Nurse Name: Cary Foster RN Position: [facility] RN Member Role: Primary Care Nurse Name: Jose Antonio Leigh III, RN Position: [facility] RN Member Role: Primary Care Nurse Name: Gris Coleman RN Position: [facility] RN Member Role: Primary Care Nurse Name: Destini Eller NP Position: Reference Physician Member Role: Primary Care Nurse Address: Address: [address] [place] [address]- [place] Name: Jonas Espino RN Position: [facility] RN Member Role: Primary Care Nurse Name: Aye Ruth RN Position: [facility] Control Area Operator Member Role: Primary Care Nurse Name: Jonas Guevara RN Position: [facility] RN Member Role: Primary Care Nurse Name: Darleen Bello RN Position: [facility] RN Member Role: Primary Care Nurse Care Team Related Persons Name: ADILIA ALVAREZ Address: [address] [place] [address] Name: MERLIN ALVAREZ Address: [place] [address]
--- OUTSIDE RECORDS SUMMARY | 2023-10-03 09:46 | XMS_ITS | Continuity of Care Document ---
Author Name Unknown Organization [facility] ter Address [address] [place] [address]- Care Team Providers Care Black And White Printer Operator Name Role Phone Michelle Fatima MD Primary Care Physician [phone] Encounter [facility] [place] Date(s): 09/10/20 - 09/19/[address] [address]- Encounter Diagnosis HAP (hospital-acquired pneumonia)(Final) - 09/10/20 Discharge Disposition: A-D/C Home Attending Physician: Richi Soto MD Admitting Physician: Cynthia Panda MD Referring Physician: Not on Staff, Referring MD Allergies, Adverse Reactions, Alerts Substance Reaction Severity Status traZODone Active Immunizations Given and Recorded Vaccine Date Status Refusal Reason tetanus/diphtheria/pertussis, acel(Tdap) 06/04/19 Given Not Given Vaccine Date Status Refusal Reason pneumococcal 23-valent vaccine 09/14/20 Not Given Permanently Refused Medications bisacodyl 10 mg rectal suppository 1 [...] opioid drug. Start Date: 09/11/20 Status: Ordered Labs: Daily INR Labs: Daily INR, See Instructions, # 1 each, Refills 0, Tot. Refills 0, Maintenance, Send results to PCP Dr. Akua BHATT and INR clinic at [address] [place] [address] [address] [place] [address], [place] [address] Dx: Portal Vein thrombosisICD I81, 09/19/20 11:05:00 EDT, Supply Start Date: 09/19/20 Status: Ordered lactulose 10 gm/15 ml oral syrup 15 mL = 10 Gm, By Mouth, 3 times a day, 0 Refills, Maintenance, 10/31/17 7:51:17 EDT Start Date: 10/31/17 Status: Ordered methadone 10 mg oral tablet 50 mg, Tablet, By Mouth, 09/19/20 9:00:00 EDT Start Date: 09/19/20 Stop Date: 09/19/20 Status: Completed Methadone Tablet = 50 mg, By Mouth, Daily, 0 Refills, Maintenance, 07/07/15 15:19:33 EST Start Date: 07/07/15 Status: Ordered pantoprazole 40 mg oral delayed release tablet 1 tablet = 40 mg, By Mouth, Daily, # 90 tablet, 0 Refills, Maintenance, 10/31/17 7:49:45 EDT, EC Tablet Start Date: 10/31/17 Status: Ordered rifaximin 550 mg oral tablet [...] Start Date: 10/31/17 Status: Ordered Vitamin D 71438 iu oral capsule 50,000 International_Units, 1, capsule, By Mouth, Every week, Refills 0, Maintenance, 10/31/17 7:51:00 EDT Start Date: 10/31/17 Status: Ordered warfarin 3 mg oral tablet 1 tablet = 3 mg, By Mouth, Daily, Daily INR Please follow up with INR clinic, # 30 tablet, 0 Refills, Maintenance, 09/19/20 10:39:00 EDT, Tablet, [facility], Partial fill upon patient request if the prescription is for a schedule II opi... Start Date: 09/19/20 Stop Date: 10/19/20 Status: Ordered Problem List Condition Effective Dates [...] Portal vein thrombosis(Confirmed) Active Tobacco dependence(Confirmed) Active Results Orders for Microbiology Reports Name Date Blood Culture 09/10/20 Blood Culture #2 09/10/20 Microbiology Reports TEST:Blood Culture STATUS:Auth (Verified) BODY SITE: SOURCE:Blood COLLECTED DATE/TIME:09/10/20 3:54 PM Blood Culture SPECIMEN DESCRIPTION : BLOOD RIGHT HAND SPECIAL REQUESTS : NONE CULTURE : NO GROWTH 5 DAYS. REPORT STATUS : FINAL 09/15/2020 TEST:Blood Culture, Second Order STATUS:Auth (Verified) BODY SITE: SOURCE:Blood COLLECTED DATE/TIME:09/10/20 3:54 PM Blood Culture, Second Order SPECIMEN DESCRIPTION : BLOOD LHAND SPECIAL REQUESTS : NONE CULTURE : NO GROWTH 5 DAYS. REPORT STATUS : FINAL 09/15/2020 Radiology Reports * Exam Date Time Procedure Performing Provider Status 09/10/20 1:29 PM Chest 2 Views Frontal and Lat Cathy King; Auth (Verified) Notes: (Chest 2 Views Frontal and Lat) Reason For Exam: Shortness of Breath, Fever;Other: RESULT: Chest 2 Views Frontal and Lat Chest 2 Views Frontal and Lat Hx of Present Illness: Bilat LE swelling. Shortness of Breath, Fever; Clinical Question(s): Pneumonia COMPARISON: Multiple prior chest x-rays, the most recent of which is dated 12/19/[address] of the chest dated 06/04/2019. FINDINGS: LUNGS AND PLEURA: Prominent bronchovascular markings. An approximately 2.7 x 4 cm region of hazy opacity is seen adjacent to the right superhilar region. No pleural effusion. No pneumothorax. HEART, MEDIASTINUM AND LUIS: Heart is normal in size. Normal upper mediastinal and hilar contour. BONES AND SOFT TISSUES: Embolization coils in the left upper quadrant. There are vertically oriented pigtail catheters are seen in the upper abdomen in the lateral view, likely ureteral stents. No acute osseous abnormality. IMPRESSION: Region of hazy opacity adjacent to the right superhilar region, which may reflect atelectasis or pneumonia. Follow-up chest x-ray posttreatment is recommended to assess for resolution. A [place] message has been communicated via the ImpressPages system on 09/10/2020 2:12 PM, Message ID [id number]. I have personally reviewed the images and I agree with this report. WSN: [id number] Ordering Physician: Alisha Gant Dictated By: Aguila Hutson MD Dictated Date/Time: 09/10/20 2:12 pm Reviewed By: Mercy Rangel MD Signed By: Mercy Rangel MD Signed Date/Time: 09/10/20 2:17 pm Transcribed By: SULY Transcribed Date/Time: 09/10/20 1:51 pm Vital Signs Most recent to oldest [Reference Range]: 1 2 3 Height 162 cm (09/18/20 7:55 AM) 162 cm (09/17/20 12:02 PM) 162 cm (09/17/20 8:32 AM) Weight 85.7 kg (09/10/20 10:39 PM) Oxygen Saturation [94-100 %] 99 % (09/19/20 11:00 AM) 97 % (09/19/20 8:00 AM) 98 % (09/18/20 7:00 PM) Pulse Rate [55-90 bpm] 63 bpm (09/19/20 11:00 AM) 61 bpm (09/19/20 8:00 AM) 50 bpm *L* (09/18/20 7:00 PM) Body Mass Index [18.5-24.99] 32.66 *>HHI* (09/10/20 10:39 PM) Blood Pressure [90-138/55-84 mm Hg] 134/72mm Hg (09/19/20 11:00 AM) 117/69mm Hg (09/19/20 8:00 AM) 110/67mm Hg (09/18/20 7:00 PM) Respiratory Rate [16-30 br/min] 18 br/min (09/19/20 11:39 AM) 20 br/min (09/19/20 11:00 AM) 18 br/min (09/19/20 10:39 AM) Temperature [96.8-100.4 DegF] 97.8 DegF (09/19/20 11:00 AM) 98 DegF (09/19/20 8:00 AM) 98.5 DegF (09/18/20 7:00 PM) Mode of Delivery (Oxygen) Room air (09/19/20 11:00 AM) Room air (09/19/20 8:00 AM) Room air (09/18/20 7:00 PM) Blood pressure sites Arm, right (09/19/20 11:00 AM) Arm, right (09/19/20 8:00 AM) Arm, right (09/18/20 7:00 PM) Temperature Route Oral (09/19/20 11:00 AM) Oral (09/19/20 8:00 AM) Oral (09/18/20 7:00 PM) Dry Weight 85.7 kg (09/10/20 10:39 PM) Weight Obtained Via Bed scale (09/10/20 10:39 PM)
--- OUTSIDE RECORDS SUMMARY | 2023-10-03 09:46 | XMS_ITS | Continuity of Care Document ---
Author Name Unknown Organization [facility] Address [address] [place] [address]- Care Team Providers Care Floor Specialist Name Role Phone Michelle Fatima MD Primary Care Physician [phone] [place] [facility] [place] 08/06/23 - 09/15/23 [facility] [address] [place] [address]- Attending Physician: Gregory Booker MD Admitting Physician: Gregory Booker MD Referring Physician: Michelle Fatima MD Allergies, [...] 07/17/23 9:01:00 EST, Route to Pharmacy Electronically, [facility], Partial fill upon patient request if [...] 0 Refills, Maintenance, 07/17/23 9:01:00 EST, Syrup, [facility], Partial fill upon patient request if [...] 07/17/23 9:03:00 EST, Route to Pharmacy Electronically, [facility], Partial fill upon patient request if theprescription is for a schedule II opioid drug., 168... Start Date: 07/17/23 Status: Ordered rifAXIMin 550 mg oral tablet 1 tablet = 550 mg, By Mouth, 2 times a day, # 60 tablet, 0 Refills, Maintenance, 07/17/23 9:02:00 EST, Tablet, [facility], Partial fill upon patient request if the prescription is for aschedule II opioid drug., 168, cm, 07/17/23 8:26:00... Start Date: 07/17/23 Status: Ordered spironolactone 100 mg oral tablet 100 mg, 1, tablet, By Mouth, Daily, # 30 tablet, Refills 0, Tot. Refills 0, Maintenance, 07/17/23 9:02:00 EST, Route to Pharmacy Electronically, [facility], Partial fill upon patient [...] Start Date: 10/31/17 Status: Ordered Vitamin D 51437 iu oral capsule 50,000 International_Units, 1, capsule, [...] Team Personnel Name: Michelle Fatima MD Position: [facility] Outreach Member Role: PCP Address: Address: [address] [place] [address] [address] [place] [address]- [place] Name: Sybil Orellana RN Position: [facility] SN RN Member Role: Primary Care Nurse Name: Francisca Krishnamurthy RN Position: [facility] RN Member Role: Primary Care Nurse Name: Nicolle Parra RN Position: [facility] RN Member Role: Primary Care Nurse Name: Nika Hoffman RN Position: [facility] RN Member Role: Primary Care Nurse Name: Amadou Kaur RN Position: [facility] Outreach Member Role: Primary Care Nurse Name: Pratibha Real RN Position: [facility] RN Member Role: Primary Care Nurse Name: Cary Foster RN Position: [facility] RN Member Role: Primary Care Nurse Name: Jose Antonio Leigh III, RN Position: [facility] RN Member Role: Primary Care Nurse Name: Gris Coleman RN Position: [facility] RN Member Role: Primary Care Nurse Name: Destini Eller NP Position: Reference Physician Member Role: Primary Care Nurse Address: Address: [address] [place] [address]- [place] Name: Jonas Espino RN Position: [facility] RN Member Role: Primary Care Nurse Name: Aye Ruth RN Position: [facility] Toy Painter Member Role: Primary Care Nurse Name: Jonas Guevara RN Position: [facility] RN Member Role: Primary Care Nurse Name: Darleen Bello RN Position: [facility] RN Member Role: Primary Care Nurse Care Team Related Persons Name: ADILIA ALVAREZ Address: home [address] [place] [address] Name: MERLIN ALVAREZ Address: [place] [address]
--- OUTSIDE RECORDS SUMMARY | 2023-10-03 09:47 | XMS_ITS | Continuity of Care Document ---
Author Name Unknown Organization [facility] ter Address [address] [place] [address]- Care Team Providers Care Netbackup Engineer Name Role Phone Michelle Fatima MD Primary Care Physician Encounter [facility] [place] Date(s): 09/19/20 - 09/20/[address] [address]- Discharge Disposition: A-D/C Walkout Attending Physician: Not on Staff, Attending MD Admitting Physician: Not on Staff, Admitting MD Referring Physician: Not on Staff, Referring [...] Dr. Akua BHATT and INR clinic at [address] [place] [address] [place] [address] Dx: Portal Vein thrombosisICD I81, 09/19/20 11:05:00 [...] Start Date: 10/31/17 Status: Ordered Vitamin D 43061 iu oral capsule 50,000 International_Units, 1, capsule, By Mouth, Every week, Refills 0, Maintenance, 10/31/17 7:51:00 EDT Start Date: 10/31/17 Status: Ordered warfarin 3 mg oral tablet 1 tablet = 3 mg, By Mouth, Daily, Daily INR Please follow up with INR clinic, # 30 tablet, 0 Refills, Maintenance, 09/19/20 10:39:00 EDT, Tablet, [facility], Partial fill upon patient [...] hepatitis C virus infection s/p ledipasvir/sofosbuvir in 2015(Confirmed) Active Ventral hernia with recurren t incarceration and small bowel obstruction(Confirmed) Active Long-term current use of met hadone for opiate dependence(Confirmed) Active Portal hypertension(Confirmed) Active Portal vein thrombosis(Confirmed) Active Tobacco dependence(Confirmed) Active Results Radiology Reports * Exam Date Time Procedure Performing Provider Status 09/20/20 12:45 AM Chest Portable Connie Cantu; Auth ( Verified) Notes: (Chest Portable) Reason For Exam: Shortness of Breath RESULT: Chest Portable Chest Portable upright at 12:22 AM Hx of Present Illness: incendential tested covid + on 3 , now c o fevers chills, dizzy, head ache,SOB, week no chest pain, abd pain; Reason: Shortness of Breath; Clinical Question(s): CHF COMPARISON: 12/19/2018 and 09/10/2020 FINDINGS: LINES AND TUBES: None. LUNGS AND PLEURA: Clear lungs. Normal pulmonary vascularity. No pleural effusion. No pneumothorax. HEART, MEDIASTINUM AND LUIS: Heart is normal in size. Normal upper mediastinal and hilar contour. BONES AND SOFT TISSUES: Osseous structures are intact. Embolization coils again are noted in the left upper quadrant of theabdomen. IMPRESSION: No acute abnormality. WSN: [id number] Ordering Physician: Aidan Best Dictated By: Varun Olivarez MD Dictated Date/Time: 09/20/20 7:37 am Reviewed By: Varun Olivarez MD Signed By: Varun Olivarez MD Signed Date/Time: 09/20/20 7:37 am Transcribed By: SULY Transcribed Date/Time: 09/20/20 7:32 am Vital Signs Most recent to oldest [Reference Range]: 1 Oxygen Saturation [94-100 %] 99 % (09/19/20 11:50 PM) Pulse Rate [55-90 bpm] 89 bpm (09/19/20 11:50 PM) Blood Pressure [90-138/55-84 mm Hg] 15/7 3mm Hg *L* (09/19/20 11:50 PM) Respiratory Rate [16-30 br/min] 18 br/mi n (09/19/20 11:50 PM) Temperature [96.8-100.4 DegF] 98.4 DegF (09/19/20 11:50 PM) Mode of Delivery (Oxygen) Room air (09/19/20 11:50 PM) Blood pressure sites Arm, right (09/19/20 11:50 PM) Temperature Route Oral (09/19/20 11:50 PM)
--- OUTSIDE RECORDS SUMMARY | 2023-10-03 09:47 | XMS_ITS | Continuity of Care Document ---
Author Name Unknown Organization [facility] Address [address] [place] [address]- Care Team Providers Care Folder Operator Name Role Phone Michelle Fatima MD Primary Care Physician Encounter [facility] [place] Date(s): 08/16/23 - 09/15/23 [facility] [address] [place] [address]- Attending Physician: Nikki Louis Admitting Physician: Nikki Louis Referring Physician: Nikki Louis Allergies, Adverse Reactions, Alerts Substance Reaction Severity [...] 07/17/23 9:01:00 EST, Route to Pharmacy Electronically, [facility], Partial fill upon patient request [...] 0 Refills, Maintenance, 07/17/23 9:01:00 EST, Syrup, [facility], Partial fill upon patient request [...] 07/17/23 9:03:00 EST, Route to Pharmacy Electronically, [facility], Partial fill upon patient request if theprescription is for a schedule II opioid drug., 168... Start Date: 07/17/23 Status: Ordered rifAXIMin 550 mg oral tablet 1 tablet = 550 mg, By Mouth, 2 times a day, # 60 tablet, 0 Refills, Maintenance, 07/17/23 9:02:00 EST, Tablet, [facility], Partial fill upon patient request if the prescription is for aschedule II opioid drug., 168, cm, 07/17/23 8:26:00... Start Date: 07/17/23 Status: Ordered spironolactone 100 mg oral tablet 100 mg, 1, tablet, By Mouth, Daily, # 30 tablet, Refills 0, Tot. Refills 0, Maintenance, 07/17/23 9:02:00 EST, Route to Pharmacy Electronically, [facility], Partial fill upon patient request [...] Start Date: 10/31/17 Status: Ordered Vitamin D 74215 iu oral capsule 50,000 International_Units, 1, capsule, [...] Team Personnel Name: Michelle Fatima MD Position: [facility] Outreach Member Role: PCP Address: Address: [address] [place] [address] [address] [place] - [place] Name: Sybil Orellana RN Position: [facility] SN RN Member Role: Primary Care Nurse Name: Francisca Krishnamurthy RN Position: [facility] RN Member Role: Primary Care Nurse Name: Nicolle Parra RN Position: [facility] RN Member Role: Primary Care Nurse Name: Nika Hoffman RN Position: [facility] RN Member Role: Primary Care Nurse Name: Amadou Kaur RN Position: [facility] Outreach Member Role: Primary Care Nurse Name: Pratibha Real RN Position: [facility] RN Member Role: Primary Care Nurse Name: Cary Foster RN Position: [facility] RN Member Role: Primary Care Nurse Name: Jose Antonio Leigh III, RN Position: [facility] RN Member Role: Primary Care Nurse Name: Gris Coleman RN Position: [facility] RN Member Role: Primary Care Nurse Name: Destini Eller NP Position: Reference Physician Member Role: Primary Care Nurse Address: Address: [address] [place] [address]- [place] Name: Jonas Espino RN Position: [facility] RN Member Role: Primary Care Nurse Name: Aye Ruth RN Position: [facility] Grant Coordinator Member Role: Primary Care Nurse Name: Jonas Guevara RN Position: [facility] RN Member Role: Primary Care Nurse Name: Darleen Bello RN Position: [facility] RN Member Role: Primary Care Nurse Care Team Related Persons Name: ADILIA ALVAREZ Address: [address] [place], [place] Name: MERLIN ALVAREZ Address: [place] [address]
--- OUTSIDE RECORDS SUMMARY | 2023-10-03 09:47 | XMS_ITS | Continuity of Care Document ---
Author Name Unknown Organization [facility] ter Address [address] [place] [address]- Care Team Providers Care Manager Of Creative Services Name Role Phone Michelle Fatima MD Primary Care Physician [phone] Encounter [facility] [place] Date(s): 01/07/20 - 01/09/[address] [address]- [facility] Encounter Diagnosis Pancreatitis(Final) - 01/07/20 Discharge Disposition: A-D/C Home Attending Physician: Ibeth MOLINA, [place] Admitting Physician: Jose Jama DO Referring Physician: Not on Staff, Referring MD [...] Start Date: 10/31/17 Status: Ordered Vitamin D 33925 iu oral capsule 50,000 International_Units, 1, capsule, [...] oldest [Reference Range]: 1 2 3 Height 163 cm (01/09/20 5:36 AM) 163 cm (01/09/20 12:26 AM) 163 cm (01/08/20 8:38 PM) Weight 81.8 kg (01/08/20 2:20 AM) 88.5 kg (01/08/20 1:03 AM) 88.5 kg (01/07/20 9:30 PM) Oxygen Saturation [94-100 %] 95 % (01/09/20 5:36 AM) 97 % (01/08/20 8:38 PM) 98 % (01/08/20 2:06 PM) Pulse Rate [55-90 bpm] 68 bpm (01/09/20 10:23 AM) 72 bpm (01/09/20 5:36 AM) 77 bpm (01/08/20 8:42 PM) Body Mass Index [18.5-24.99] 30.79 *>HHI* (01/08/20 2:20 AM) Blood Pressure [90-138/55-84 mm Hg] 108/68mm Hg (01/09/20 10:23 AM) 105/64mm Hg (01/09/20 5:36 AM) 99/55mm Hg (01/08/20 8:42 PM) Respiratory Rate [16-30 br/min] 18 br/min (01/09/20 12:47 PM) 18 br/min (01/09/20 5:36 AM) 19 br/min (01/08/20 8:38 PM) Temperature [96.8-100.4 DegF] 98.7 DegF (01/09/20 5:36 AM) 98.6 DegF (01/09/20 12:26 AM) 99.8 DegF (01/08/20 2:06 PM) Mode of Delivery (Oxygen) Room air (01/09/20 5:36 AM) Room air (01/08/20 8:38 PM) Room air (01/08/20 2:06 PM) Blood pressure sites Arm, right (01/09/20 5:36 AM) Arm, left (01/08/20 8:38 PM) Arm, left (01/08/20 2:06 PM) Temperature Route Oral (01/09/20 5:36 AM) Oral (01/09/20 12:26 AM) Oral (01/08/20 2:06 PM) Weight Obtained Via Bed scale (01/08/20 2:20 AM)
[2023-10-03 10:30] LABS: MANUAL DIFF FLAG NO
[2023-10-03 10:32] LABS: Basophils Percent Auto 0.7 % (0-2); Eosinophils Absolute Auto 0.2 X10*3/uL (0.0-0.4); Eosinophils Percent Auto 7.3 % (0-4); Hematocrit 32.5 % (42.0-52.0); Hemoglobin 10.8 g/dl (14.0-18.0); Imm Gran Abs Auto 0.01 X10*3/uL (0.00-0.03); Imm Gran Pct Auto 0.4 % (0.0-0.4); Lymphocytes Absolute Auto 0.5 X10*3/uL (1.2-4.9); Lymphocytes Percent Auto 17.2 % (20-40); Mean Corpuscular HGB Conc 33.2 g/dl (31.0-36.0); Mean Corpuscular Hemoglobin 31.4 pg (27.0-33.0); Mean Corpuscular Volume 94.5 fL (80.0-98.0); Mean Platelet Volume 9.8 fL (9.4-12.4); Monocytes Absolute Auto 0.2 X10*3/uL (0.1-1.2); Monocytes Percent Auto 7.3 % (2-11); Neutrophils Absolute Auto 1.8 x10*3/uL (2.0-8.3); Neutrophils Percent Auto 67.1 % (45-73); Platelet Count 79 X10*3/uL (160-400); Red Blood Count 3.44 X10*6/uL (4.60-5.80); Red Cell Distribution Width 14.8 % (11.0-16.0); White Blood Count 2.7 X10*3/uL (4.8-10.8)
[2023-10-03 11:00] LABS: B Type Natriuretic Peptide 66 pg/mL (<100)
[2023-10-03 11:50] LABS: Appearance Urine Clear; Color Urine Yellow; Glucose Urine UA 100 mg/dL (Negative); Leukocyte Esterase Urine Trace (Negative); Nitrite Urine Negative (Negative); PH 7.5 (5.0-9.0); UMIC TRIGGER UACC YES; Urine Blood Negative (Negative); Urine Ketones Negative (Negative); Urine Protein Negative (Neg-Trace)
[2023-10-03 11:55] LABS: Bacteria Urine None Seen (None Seen); Hyaline Casts Urine 0-2 /LPF (0-2); RBC Urine 0-2 /HPF (0-2); Squamous Epithelial Cell Urine 0-2 /HPF (0-2); WBC Urine 0-5 /HPF (0-5)
[2023-10-03 12:22] LABS: Amphetamine Screen Urine Not Detected (Not Detect); Barbiturates, Urine Not Detected (Not Detect); Benzodiazepines Screen Urine Not Detected (Not Detect); Cannabinoid Screen Urine Not Detected (Not Detect); Cocaine Screen Urine Not Detected (Not Detect); Fentanyl, urine POSITIVE (Not Detect); Opiate Screen Urine POSITIVE (Not Detect); Phencyclidine Screen Urine Not Detected (Not Detect)
[2023-10-03 12:23] LABS: Alanine Aminotransferase 29 U/L (0-40); Alkaline Phosphatase 94 U/L (39-117); Anion Gap 8 (12-20); Aspartate Amino Transferase 36 U/L (5-37); Bilirubin Direct 0.4 mg/dL (0.0-0.5); Blood Urea Nitrogen 8 mg/dL (9-16); Calcium 8.5 mg/dL (8.4-10.2); Carbon Dioxide 27 mmol/L (22-29); Chloride 108 mmol/L (96-108); Creatinine Clr Calc Pharmacy 107.7; Estimated Glomerular Filt Rate > 60; Ethanol < 10 mg/dL; Glucose Random 151 mg/dL (60-115); Magnesium 1.9 mg/dL (1.6-2.6); Potassium 3.9 mmol/L (3.3-5.1); Sodium 139 mmol/L (135-145); Total Protein 6.3 g/dL (6.5-8.0)
[2023-10-03 13:47] VITALS: BP 152/83; PULSE 75; RESP 16; O2SAT 98
[2023-10-03] MEDS: Nystatin Powder 15 GM BOTTLE 1 APPL TOPICAL (13:48)
--- NOTE | 2023-10-03 15:50 | MHC.CM.PN ---
CM RECEIVED CONSULT ON PT WHO PRESENTED WITH LE PAIN/SWELLING. PT NOT AVAILABLE TODAY PT WILL REQUIRE EVAL FOR STR PLACEMENT
--- NOTE | 2023-10-04 03:25 | PC.NURSE ---
Patient appears to remain asleep at present, respirations are even and unlabored, patient appears in no distress.
[2023-10-04 05:03] VITALS: BP 125/78; PULSE 70; RESP 18; TEMP 36.9; O2SAT 94
--- NOTE | 2023-10-04 06:50 | PC.NURSE ---
Patient is alert and oriented x3, VSS. Patient reports 5/10 pain in left leg and testicles. Patient is able to make his needs known, uses call cantu appropriately. Call cantu in patient's reach.
--- NOTE | 2023-10-04 07:22 | PC.NURSE ---
med rec done, methadone clinic called and form completed, pt states he only takes methadone but is supposed to take another med but ran out and unsure what it is
--- NOTE | 2023-10-04 07:53 | HE.PHANOTE ---
Methadone Verification Methadone verification form received: Dose: 40 mg - 09/30: 7 days of 40 mg. Given one week supply of 40mg per Thelma at [facility].
[2023-10-04] MEDS: methADONE HCl 20 MG/2 ML ORAL.CONC 40 MG PO (08:09)
[2023-10-04 08:57] LABS: COVID-19 Test Negative (Negative); IDNOW Serial# 08D9AD1C
--- NOTE | 2023-10-04 09:39 | MHC.CM.ED ---
Addendum entered by Mindy Prescott 10/04/23 10:49: [facility] in [place] is able to offer a bed if guest dosing is arranged at [facility] in [place]. Nadja, solder cream maker, has been asked to assist with this. Will also need insurance auth and [facility] PASRR before patient can transfer. Original Note: Patient remains in ER. Physical therapy eval completed. Short term rehab is recommended. Patient receives methadone from [facility]. Anticipate patient will be difficult to place due to this. Referral broadcasted within 50 miles to all facilities that are contracted with [facility]. Patient will need a [facility] PASRR Level 2. T/W has already submitted for this. Continue to monitor for d/c needs.
--- NOTE | 2023-10-04 15:15 | PC.NURSE ---
assumed care of patient at this time. Transferred to hospital bed.
[2023-10-04 15:50] VITALS: BP 122/68; PULSE 72; RESP 18; TEMP 37.1; O2SAT 97
--- NOTE | 2023-10-04 18:02 | PC.NURSE ---
verifed meds with ELIZABETH kenny.
[2023-10-04 20:27] VITALS: BP 111/66; PULSE 97; RESP 16; TEMP 37; O2SAT 94
[2023-10-05 05:50] VITALS: BP 123/74; PULSE 69; RESP 14; TEMP 36.9; O2SAT 92
[2023-10-05] MEDS: Lactulose 20 GM/30 ML SOLUTION 30 GM PO ×2 (07:26→14:50)
[2023-10-05] MEDS: Folic Acid 1 MG TABLET PO (07:29)
[2023-10-05] MEDS: Omeprazole 20 MG CAPSULE.DR PO (07:29)
--- NOTE | 2023-10-05 07:30 | PC.NURSE ---
Patient is alert and oriented, repositioned patient in bed, patient reports BLE pain, plan is for patient to go to [facility] in [facility] for rehab.
--- NOTE | 2023-10-05 07:53 | PC.NURSE ---
PT BOOSTED UP IN BED W MINIMAL ASSIST, FRESH LINEN GIVEN. PT EATING BREAKFAST AT THIS TIME.
--- NOTE | 2023-10-05 08:35 | MHC.EDTECH ---
This tech assisted this PT to the commode. PT had a large brown bowel movement. This tech also emptied the pts urinal at 200cc yellow urine.
--- NOTE | 2023-10-05 11:57 | MHC.CM.ED ---
Addendum entered by Mindy Prescott 10/05/23 14:14: Guest dosing arranged at [facility] in [place]. Patient can leave at 530pm. Polly MEDEIROS booked. Patient, Gris LEIGH and Elda HERRERA aware. Continue to monitor for d/c needs. Original Note: Patient remains in ER overflow. Still working with [facility] to arrange guest dosing for methadone at [facility] in [place]. Continue to monitor for d/c needs.
--- NOTE | 2023-10-05 12:20 | MHC.EDTECH ---
Pt ate 100% of his lunch, 480cc of fluids
[2023-10-05] MEDS: methADONE HCl 20 MG/2 ML ORAL.CONC 40 MG PO (12:25)
--- NOTE | 2023-10-05 13:59 | MHC.EDTECH ---
Emptied urinal at 300cc
[2023-10-05 14:00] VITALS: BP 132/56; PULSE 71; RESP 17; TEMP 36.6; O2SAT 96
[2023-10-05 18:38] VITALS: BP 132/56; PULSE 71; RESP 17; TEMP 36.6; O2SAT 96
== END 2023-10-05 18:39 ==
PROVIDERS: Physician Assistant; Physician Assistant Medical; Emergency Provider Student in an Organized Health Care Education/Training Program; PCP Internal Medicine
DX: N43.3 Hydrocele, unspecified (principal); B37.2 Candidiasis of skin and nail; I87.8 Other specified disorders of veins; I10 Essential (primary) hypertension; K70.30 Alcoholic cirrhosis of liver without ascites; Z11.52 Encounter for screening for COVID-19
CPT/HCPCS: 36415; 76870; 80048; 80076; 80307; 81001; 83735; 83880; 85025; 87635; 93970; 93975; 97162; 99285

== ENCOUNTER 2023-10-28 14:13 | Inpatient (IN) | payer OTHER, SELFPAY ==
--- NOTE | ~2023-10-28 | XR_ITS ---
EXAMINATION: XR CHEST CLINICAL INFORMATION: Aspiration risk. COMPARISON: Chest radiograph dated 08/08/2023. TECHNIQUE: Frontal view of the chest was obtained. FINDINGS: There are low lung volumes. The cardiac silhouette is normal in size for this projection and level of inspiration. There is pulmonary vascular congestion and probable mild interstitial pulmonary edema. No consolidation. No pleural effusion or pneumothorax. There are vascular coils overlying the left upper quadrant. No acute osseous abnormality. XR/XR chest 1V IMPRESSION: Low lung volumes. Pulmonary vascular congestion and probable mild interstitial pulmonary edema. No consolidation.
--- NOTE | ~2023-10-28 | CT_ITS ---
EXAMINATION: CT HEAD WITHOUT CONTRAST CLINICAL INFORMATION: Mental status change COMPARISON: CT head August 08, 2023 TECHNIQUE: Contiguous axial imaging was performed from the skull base to vertex without intravenous administration of contrast. Coronal and sagittal reformatted images are performed at the CT scanner. [This CT examination was performed using dose optimization techniques as appropriate, variously including the following: *Automated exposure control *Adjustment of mA and/or kV according to patient size (this includes techniques or standardized protocols for targeted exams where dose is matched to indication/reason for exam; i.e. extremities or head) *Use of iterative reconstruction technique] DLP: 1229 mGy-cm. FINDINGS: There is no evidence of acute intracranial hemorrhage or territorial infarction. No abnormal mass-effect or midline shift is seen. Felder to white matter differentiation is well preserved. No extra-axial fluid collections are identified. There is generalized global volume loss. There is mild prominence of the ventricles and the sulci . There is mild hypodensity of the periventricular white matter due to chronic small vessel ischemic disease. There are vascular calcifications of the internal carotid arteries bilaterally. There is no osseous abnormality. The mastoid air cells and visualized portions of the paranasal sinuses are well-aerated. CT/CT head/brain wo IV con IMPRESSION: No acute intracranial pathology.
--- NOTE | ~2023-10-28 | US_ITS ---
EXAMINATION: US ABDOMEN LIMITED CLINICAL INFORMATION: Liver Doppler, history of portal vein thrombosis. Elevated LFTs COMPARISON: CT scan abdomen and pelvis 08/08/2023 TECHNIQUE: Real-time imaging of the portal vein with grayscale and color flow Doppler was performed. Ultrasound of the portal vein only, per ordering provider FINDINGS: PORTAL VEIN: The main portal vein appears patent. No evidence of thrombus. TIPS shunt is seen within the main portal vein. US/US abdomen limited IMPRESSION: The main portal vein is patent without evidence of thrombus.
--- NOTE | 2023-10-28 14:15 | ED_ITS ---
HPI - Nausea/Vomiting/Diarrhea General Chief complaint: General Medical Stated complaint: FOUND BY STAFF VOMITING,ETOH USED PER EMS Time Seen by Provider: 10/28/23 14:14 Source: EMS, old records reviewed and adjustment clerk Mode of arrival: EMS Limitations: altered mental status History of Present Illness HPI Narrative: 68 yo male with PMH of HTN, cirrhosis with pancytopenia, portal vein thrombosis on lovenox, polysubstance abuse, GERD, UGIB Aug 2013 s/p banding of ulcers did require emergent EGD octreotide, protonix, intubation to protect airway he presents today with c/o [facility] staff calling as they found him in his room after drinking ETOH covered in vomit and feces - no blood reported. He denies trauma. He states people are making a big deal about nothing. He denies drug use. He states he takes all of his medications and has been having 3 stools a day. He thinks initially he is in [place] and doesn't know the year or month. MD elicited complaint: vomiting and diarrhea Pertinent past history: alcohol abuse Onset (ago): day(s) (today) Description of vomiting: food contents and watery Description of diarrhea: watery Associated nausea: No Associated abdominal pain: No Severity: moderate Exacerbating factors: alcohol intake Relieving factors: none Context: alcohol abuse Associated symptoms: denies other symptoms Related Data Home Medications ?Medication ?Instructions ?Recorded ?Confirmed furosemide 40 mg tablet 40 mg PO DAILY 08/28/20 10/28/23 docusate sodium 100 mg capsule 100 mg PO BID PRN Constipation 08/08/23 10/28/23 acetaminophen 325 mg tablet 650 mg PO Q6H PRN Pain 10/28/23 10/28/23 Previous Rx's ?Medication ?Instructions ?Recorded folic acid 1 mg tablet 1 mg PO DAILY #30 tabs 07/26/23 spironolactone 100 mg tablet 100 mg PO QAM #30 tabs 07/26/23 thiamine HCl (vitamin B1) 100 mg 100 mg PO DAILY #30 tabs 07/26/23 tablet lactulose 20 gram/30 mL oral 30 g (45 mL) PO TID #1,200 mL 08/14/23 solution methadone 10 mg/mL oral 40 mg (4 mL) PO DAILY #30 mL 08/14/23 concentrate (Methadose) pantoprazole 40 mg tablet,delayed 40 mg PO BID 30 days #60 tabs 08/14/23 release (Protonix) sucralfate 100 mg/mL oral 1 g (10 mL) PO QIDACHS 10 days 08/14/23 suspension #400 mL Allergies Allergy/AdvReac Type Severity Reaction Status Date / Time No Known Allergies Allergy Verified 10/28/23 14:38 [No Known Allergies*] Review of Systems 2 Review of Systems: ROS unable to be obtained due to altered mental status Gastrointestinal: Gastrointestinal: Denies nausea PMFSH Past Medical History Attestation statement: The following information was validated with the patient. Source: old records reviewed Medical History Polysubstance abuse Splenomegaly Pancytopenia Portal vein thrombosis Cirrhosis HTN (hypertension) Surgical History S/P TIPS (transjugular intrahepatic portosystemic shunt) Social History Social History Household Members: Unknown / Unable to assess Housing: Unknown / Unable to assess Unable to assess alcohol history related to: Unable to respond Alcohol intake: current Comment: 1:1 sitter Patient Tobacco Use Status: Tobacco use Unknown Substance Use Type: Heroin Advance Directives: No Advance Directives Information Provided: No service: No Current occupational status: retired Current occupation: rt handed Physical Exam 2 Vital Signs: Vital Signs: Last Vital Signs Temp 97.6 F 10/28/23 17:39 Pulse 106 H 10/28/23 19:30 Resp 16 10/28/23 19:30 BP 124/84 10/28/23 19:30 Pulse Ox 96 10/28/23 19:30 O2 Del Method Room Air 10/28/23 19:30 BMI result Body Mass Index 33.9 Appearance: Alert. Oriented X2. No acute distress. ETOH odor Eyes: Pupils equal, round and reactive to light. ENT: Pharynx normal. Atraumatic Neck: Normal inspection. Neck supple. CVS: Normal heart rate and rhythm. Pulses normal. Respiratory: No respiratory distress. Breath sounds normal. Abdomen: Soft and nontender. ascites noted but no ttp - has 3 areas of injection site noted Skin: Skin warm and dry. Normal skin color. Normal skin turgor. Extremities:2+ bilateral pitting lower extremity edema with venous skin stasis changes. Neuro: Oriented X 32 No motor deficit. No sensory deficit. tremors and tongue fasciculations noted Course Course Course Narrative: + edema noted on CXR IV lasix ordered Reevaluation(s) Reevaluation #1: started on low dose IVF and phenobarb Medications Administered Generic Name Dose Route Start Last Admin Trade Name Freq PRN Reason Stop Dose Admin Sodium Chloride 1,000 mls @ 100 mls/hr 10/28/23 15:45 10/28/23 16:16 Ns IVCONT 10/29/23 01:44 100 mls/hr .Q10H LEONARDO Administration Discontinued Medications Generic Name Dose Route Start Last Admin Trade Name Freq PRN Reason Stop Dose Admin Furosemide 20 mg 10/28/23 15:00 10/28/23 15:25 Furosemide 20 Mg/2 Ml Vial IVPUSH 10/28/23 15:01 20 mg ONCE ONE Administration Protocol Magnesium Sulfate 2 gm in 50 mls @ 25 mls/hr 10/28/23 14:22 10/28/23 17:05 Magnesium Sulfate/H2o IV 10/28/23 16:21 Infused ONCE ONE Infusion Thiamine HCl 200 mg/ Sodium 102 mls @ 204 mls/hr 10/28/23 14:22 10/28/23 15:40 Chloride IV 10/28/23 14:51 Infused ONCE ONE Infusion Lactulose 20 gm 10/28/23 15:25 10/28/23 16:12 Lactulose 20 Gm/30 Ml Solution PO 10/28/23 15:26 20 gm ONCE ONE Administration Phenobarbital Sodium 197.6 mg 10/28/23 16:00 10/28/23 16:10 Phenobarbital Sodium 130 Mg/Ml Im Once IM 10/28/23 16:01 197.6 mg ONCE ONE Administration Protocol Medical Decision Making Medical Decision Making MDM Narrative: 68 yo male with PMH of HTN, cirrhosis with pancytopenia, portal vein thrombosis on lovenox, polysubstance abuse, GERD, UGIB Aug 2013 s/p banding of ulcers did require emergent EGD octreotide, protonix, intubation here with c/o ETOH use, vomiting and diarrhea denies GIB symptoms at this time given complicated history and unsure he is actually taking his medications will obtain monet labs, CXR, CT head for trauma, type and screen and start on thiamine and magnesium Differential Diagnosis Differential Diagnoses: The differential diagnosis associated with the presentation includes hepatic encephalopathy, alcohol abuse, drug abuse, lyte derangement, cirrhosis Admission/Observation Consideration of admission/observation: Escalation of care including admission/observation considered will need admission for hepatic encephalopathy Consult Healthcare Provider Management of the patient was discussed with: Hospitalist (will admit) Lab Data MDM Lab Attestation statement: I reviewed the patient's lab results. 10/28/23 15:03 10/28/23 15:03 Labs: Lab Results 10/28/23 10/28/23 Range/Units 15:03 15:13 WBC 4.0 L (4.8-10.8) X10*3/uL RBC 4.41 L D (4.60-5.80) X10*6/uL Hgb 13.6 L D (14.0-18.0) g/dl Hct 39.8 L D (42.0-52.0) % MCV 90.2 (80.0-98.0) fL MCH 30.8 (27.0-33.0) pg MCHC 34.2 (31.0-36.0) g/dl RDW 13.5 (11.0-16.0) % Plt Count 86 L (160-400) X10*3/uL MPV 10.1 (9.4-12.4) fL Immature Gran % (Auto) 0.3 (0.0-0.4) % Neut % (Auto) 59.4 (45-73) % Lymph % (Auto) 23.8 (20-40) % Alexander % (Auto) 8.1 (2-11) % Eos % (Auto) 7.1 H (0-4) % Baso % (Auto) 1.3 (0-2) % Lymph # (Auto) 0.9 L (1.2-4.9) X10*3/uL Alexander # (Auto) 0.3 (0.1-1.2) X10*3/uL Eos # (Auto) 0.3 (0.0-0.4) X10*3/uL Baso # (Auto) 0.1 (0.0-0.2) X10*3/uL Abs Immat Gran (auto) 0.01 (0.00-0.03) X10*3/uL Absolute Neuts (auto) 2.4 (2.0-8.3) x10*3/uL Absolute Nucleated RBC 0.000 (0.0-0.012) X10*3/uL Nucleated RBC % (auto) 0.0 (0.0-0.2) /100WBC PT 16.5 H D (11.1-13.3) SEC INR 1.4 H (0.9-1.1) Sodium 136 (135-145) mmol/L Potassium 3.6 (3.3-5.1) mmol/L Chloride 100 (96-108) mmol/L Carbon Dioxide 31 H (22-29) mmol/L Anion Gap 9 L (12-20) BUN 9 (9-16) mg/dL Creatinine 0.93 (0.5-1.4) mg/dL Estim Creat Clear Calc 80.5 Estimated GFR > 60 Random Glucose 122 H (60-115) mg/dL Lactic Acid 2.0 (0.5-2.0) mmol/L Calcium 9.4 D (8.4-10.2) mg/dL Magnesium 1.6 (1.6-2.6) mg/dL Total Bilirubin 1.9 H (0.0-1.0) mg/dL Direct Bilirubin 0.8 H (0.0-0.5) mg/dL AST 122 H (5-37) U/L ALT 69 H (0-40) U/L Alkaline Phosphatase 84 (39-117) U/L Ammonia 87 H (13-55) umol/L Total Creatine Kinase 1720 H (38-174) U/L Troponin I High Sens 4.0 D (<3.5-35.0) ng/L B-Natriuretic Peptide < 10 (<100) pg/mL Total Protein 7.6 (6.5-8.0) g/dL Albumin 3.6 (3.5-5.0) g/dL Lipase 33 (8-78) U/L Procalcitonin 0.03 ng/mL Ethyl Alcohol < 10 mg/dL Influenza Type A (PCR) NEGATIVE (Negative) Influenza Type B (PCR) NEGATIVE (Negative) RSV RNA Qual (PCR) NEGATIVE (Negative) SARS-CoV-2 RNA (RT-PCR) NEGATIVE (Negative) Blood Type O Positive Antibody Screen NEGATIVE Independent Interpretation I performed an independent interpretation of an: EKG, Plain X-Ray (interstitial edema), Ultrasound and CT Scan (no ICH) Interpretation: Rate: 85 Rhythm: NSR [place]: left, LVH Normal P waves. Normal VIKRAM. Normal QRS complex. ST T wave : no AARON, nonspecific ST T wave changes inf leads qTC: 499 prior studies: no sig change The study has been interpreted contemporaneously by me. . Radiology Impression Discussion of test interpretation with radiology: I have reviewed the radiologist's reading. Independent Historian Clinical information obtained from an independent historian. History obtained from or confirmed by: EMS External Record Review External record reviewed: Inpatient record Critical Care Time Critical Care Time Critical Care Time: Yes Total Critical Care Time: 60 Attestation: IVF, IV magnesium, review of records, discussion with EMS, admission, phenobarb protocol I attest to this time spent taking care of the patient Discharge Plan Discharge Clinical Impression: Acute hepatic encephalopathy, Active substance abuse, Elevated liver enzymes, Alcohol use disorder Rhabdomyolysis Qualifiers: Rhabdomyolysis type: non-traumatic Qualified Code(s): M62.82 - Rhabdomyolysis Patient Disposition: Admitted As Inpatient
--- NOTE | 2023-10-28 14:23 | ECG_ITS ---
Test Reason : AMS Blood Pressure : / mmHG Vent. Rate : 086 BPM Atrial Rate : 086 BPM P-R Int : 154 ms QRS Dur : 112 ms QT Int : 432 ms P-R-T Axes : 042 -43 008 degrees QTc Int : 516 ms Normal sinus rhythm Left axis deviation Minimal voltage criteria for LVH, may be normal variant ( R in aVL ) Prolonged QT Abnormal ECG When compared with ECG of 08-AUG-2023 08:36, No significant change was found Referred By: Blossom Croft Electronically Signed By:
[2023-10-28 14:24] VITALS: BP 123/69; BP 126/82; PULSE 87; PULSE 89; RESP 17; TEMP 36.3; O2SAT 96; O2SAT 98; BMI 33.9
[2023-10-28] MEDS: Magnesium Sulfate/H2O 2 GM/50 ML PIGGYBACK IV (15:07)
[2023-10-28] MEDS: Thiamine HCL 200 MG in 0.9 % Sodium Chloride 100 ML 204 MG IV (15:08)
[2023-10-28 15:11] LABS: MANUAL DIFF FLAG NO
[2023-10-28 15:13] LABS: Basophils Absolute Auto 0.1 X10*3/uL (0.0-0.2); Basophils Percent Auto 1.3 % (0-2); Eosinophils Absolute Auto 0.3 X10*3/uL (0.0-0.4); Eosinophils Percent Auto 7.1 % (0-4); Hematocrit 39.8 % (42.0-52.0); Hemoglobin 13.6 g/dl (14.0-18.0); Imm Gran Abs Auto 0.01 X10*3/uL (0.00-0.03); Imm Gran Pct Auto 0.3 % (0.0-0.4); Lymphocytes Absolute Auto 0.9 X10*3/uL (1.2-4.9); Lymphocytes Percent Auto 23.8 % (20-40); Mean Corpuscular HGB Conc 34.2 g/dl (31.0-36.0); Mean Corpuscular Hemoglobin 30.8 pg (27.0-33.0); Mean Corpuscular Volume 90.2 fL (80.0-98.0); Mean Platelet Volume 10.1 fL (9.4-12.4); Monocytes Absolute Auto 0.3 X10*3/uL (0.1-1.2); Monocytes Percent Auto 8.1 % (2-11); Neutrophils Absolute Auto 2.4 x10*3/uL (2.0-8.3); Neutrophils Percent Auto 59.4 % (45-73); Red Blood Count 4.41 X10*6/uL (4.60-5.80); Red Cell Distribution Width 13.5 % (11.0-16.0)
[2023-10-28 15:16] LABS: Platelet Count 86 X10*3/uL (160-400)
[2023-10-28 15:18] LABS: INTERNATIONAL NORM RATIO 1.4 (0.9-1.1); Prothrombin Time 16.5 SEC (11.1-13.3)
[2023-10-28 15:23] LABS: Ammonia 87 umol/L (13-55)
[2023-10-28 15:25] VITALS: BP 117/80
[2023-10-28] MEDS: Furosemide 20 MG/2 ML VIAL IVPUSH (15:25)
[2023-10-28 15:31] LABS: Alanine Aminotransferase 69 U/L (0-40); Albumin Level 3.6 g/dL (3.5-5.0); Alkaline Phosphatase 84 U/L (39-117); Anion Gap 9 (12-20); Aspartate Amino Transferase 122 U/L (5-37); Bilirubin Direct 0.8 mg/dL (0.0-0.5); Bilirubin Total 1.9 mg/dL (0.0-1.0); Blood Urea Nitrogen 9 mg/dL (9-16); Calcium 9.4 mg/dL (8.4-10.2); Carbon Dioxide 31 mmol/L (22-29); Chloride 100 mmol/L (96-108); Creatinine Clr Calc Pharmacy 80.5; Estimated Glomerular Filt Rate > 60; Glucose Random 122 mg/dL (60-115); Lipase 33 U/L (8-78); Magnesium 1.6 mg/dL (1.6-2.6); Potassium 3.6 mmol/L (3.3-5.1); Sodium 136 mmol/L (135-145); Total Protein 7.6 g/dL (6.5-8.0)
[2023-10-28 15:34] LABS: Ethanol < 10 mg/dL
[2023-10-28 15:35] LABS: B Type Natriuretic Peptide < 10 pg/mL (<100)
[2023-10-28 15:52] LABS: Procalcitonin 0.03 ng/mL
[2023-10-28 15:59] LABS: Influenza A PCR NEGATIVE (Negative); Influenza B PCR NEGATIVE (Negative); Resp Syncy Virus RNA Qual PCR NEGATIVE (Negative); SARS COV2 PCR INHOUSE NEGATIVE (Negative)
[2023-10-28] MEDS: PHENobarbitaL sodium 130 MG/ML IM ONCE 197.6 MG IM (16:10)
[2023-10-28] MEDS: Lactulose 20 GM/30 ML SOLUTION PO ×2 (16:12→21:00)
[2023-10-28] MEDS: 0.9 % Sodium Chloride 1,000 ML 100 ML IVCONT (16:16)
--- NOTE | 2023-10-28 17:05 | PC.NURSE ---
Patient given a bed bath stripped of clothing washed of stool and urine. Patient does not have any wounds on coccyx or his body. Patient denies pain, sob, and dizziness. IM Phenobarbital given per protocol. IV 20g in left antecubital.
[2023-10-28 17:39] VITALS: BP 133/78; PULSE 91; RESP 14; TEMP 36.4; O2SAT 98
--- NOTE | 2023-10-28 18:04 | PM.IMHP ---
History of Present Illness Date of Service: 10/28/23 Attending physician on admission: Clemetn Clay Chief Complaint: AMS Pt is a 68-year-old male with a PMH significant for?HTN, hepatic cirrhosis complicated by pancytopenia and portal vein thrombosis anticoagulated with Lovenox, polysubstance use, GERD, and long hx of medication noncompliance who presents to the ED for evaluation of?altered mental status. [employer] staff called EMS after finding patient in his room covered in vomit and feces. Staff also found multiple bottles of alcohol in his room. Patient was quite altered upon initial presentation to the ED. At time of this interview and exam patient alert and oriented to self and place, though not at time. Patient reports he has been compliant with all of his home medications, and denies any substance use. Reports that there were other people staying with him that were drinking and doing drugs. Patient has no acute medical complaints at this time. Denies chest pain/pressure, palpitations. No shortness of breath. Denies fever, chills, nausea, vomiting, diarrhea, abdominal pain. No headache. Denies auditory or visual hallucinations. No increase in anxiety. In the ED pt with vital signs stable and WNL. Labs were significant creatinine 0.93 (baseline 0.75), bilirubin 1.9, AST 122, ALT 69, ammonia 87, and CPK 1720. Initial troponin 4.0. BNP negative. Pancytopenia at baseline for patient: WBC 4.0, H&H 13.6/39.8, platelets 86. Ethyl alcohol levels undetectable. Tested negative for flu, RSV, COVID. CXR showed pulmonary vascular congestion and probable mild interstitial pulmonary edema without consolidation. CT?of head found no acute intracranial pathology. Abdominal ultrasound found main portal vein patent without evidence of thrombus. EKG demonstrated normal sinus rhythm with left ventricular hypertrophy and prolonged QTc of 499. Pt was treated with magnesium sulfate, thiamine, furosemide, lactulose, IVF, and started on phenobarb protocol. Pt will be admitted to the hospital for acute encephalopathy in the setting of alcoholic cirrhosis as well as acute alcohol withdrawal. Review of Systems Review of Systems: Patient denies acute medical complaints at this time No fever, chills, nausea, vomiting, abdominal pain Denies shortness of breath or difficulty breathing No chest pain/pressure, palpitations Denies headache, acute vision changes PMFSH Medical History Polysubstance abuse Splenomegaly Pancytopenia Portal vein thrombosis Cirrhosis HTN (hypertension) Surgical History S/P TIPS (transjugular intrahepatic portosystemic shunt) Social History Household Members: Unknown / Unable to assess Housing: Unknown / Unable to assess Unable to assess alcohol history related to: Unable to respond Alcohol intake: current Comment: 1:1 sitter Patient Tobacco Use Status: Tobacco use Unknown Substance Use Type: Heroin Advance Directives: No Advance Directives Information Provided: No service: No Current occupational status: retired Current occupation: rt handed Meds Allergies Allergy/AdvReac Type Severity Reaction Status Date / Time No Known Allergies Allergy Verified 10/28/23 14:38 [No Known Allergies*] Active Medications: Current Medications Acetaminophen (Acetaminophen 325 Mg Tablet) 650 mg PO Q6H PRN PRN Reason: Pain, Mild (Pain Scale 1-3) Sodium Chloride (Ns) 1,000 mls @ 100 mls/hr IVCONT .Q10H LEONARDO Last Admin: 10/28/23 16:16 Dose: 100 mls/hr Melatonin (Melatonin 3 Mg Tablet) 6 mg PO BEDTIME PRN PRN Reason: Insomnia Ondansetron HCl (Ondansetron Hcl 4 Mg/2 Ml Vial) 4 mg IVPUSH Q8H PRN PRN Reason: Nausea and Vomiting Pharmacy Consult (Consult Rx Etoh Phenob Im/Po) 1 each MISCELLANE ONCE PRN; Protocol PRN Reason: Consult order Phenobarbital (Phenobarbital 15 Mg Tablet) 45 mg PO BID LEONARDO; Protocol Stop: 10/30/23 21:01 Phenobarbital (Phenobarbital 15 Mg Tablet) 15 mg PO BID LEONARDO; Protocol Stop: 11/01/23 21:01 Phenobarbital (Phenobarbital 15 Mg Tablet) 15 mg PO DAILY LEONARDO Stop: 11/03/23 09:01 Phenobarbital Sodium (Phenobarbital Sodium 130 Mg/Ml Vial Im Q3hx2) 146.9 mg IM Q3H LEONARDO; Protocol Stop: 10/28/23 22:01 Sodium Chloride (0.9 % Sodium Chloride Flush 3 Ml Syringe) 3 ml IVFLUSH QSHIFT [facility] Home Medications ?Medication ?Instructions ?Recorded ?Confirmed ?Last Taken ?Type furosemide 40 mg tablet 40 mg PO DAILY 08/28/20 10/28/23 Unknown History docusate sodium 100 mg capsule 100 mg PO BID PRN Constipation 08/08/23 10/28/23 Unknown History acetaminophen 325 mg tablet 650 mg PO Q6H PRN Pain 10/28/23 10/28/23 Unknown History Physical Exam Vital Signs and Narrative: Vital Signs: Last Vital Signs Temp 97.6 F 10/28/23 17:39 Pulse 91 10/28/23 17:39 Resp 14 10/28/23 17:39 BP 133/78 10/28/23 17:39 Pulse Ox 98 10/28/23 17:39 O2 Del Method Room Air 10/28/23 17:39 BMI result Body Mass Index 33.9 Constitutional: Alert, disheveled, in no acute distress. Mental Status: Oriented to person and place but not to time. Eyes: Pupils are equal, round, and reactive to light. Ear, Nose, and Throat: Oropharynx clear, mucous membranes moist. Ears and nose without deformities. Trachea midline. Respiratory: Clear to auscultation bilaterally. No wheezing, rales, or rhonchi. Cardiovascular: S1, S2 regular. No murmurs, rubs, or gallops. Gastrointestinal: Abdomen soft, non-tender, non-distended. Normal bowel sounds. Neurologic: Cranial nerves II-XII are grossly intact bilaterally. No focal neurological deficits. Moves all extremities spontaneously. Skin: Warm, dry. Extremities: No edema. Significant and extensive chronic venous stasis dermatitis, as pictured below. Psychiatric: Calm, cooperative. Results Labs 10/28/23 15:03 10/28/23 15:03 Labs: Laboratory Results - last 24 hr 10/28/23 10/28/23 15:03 15:13 MCV 90.2 MCH 30.8 MCHC 34.2 RDW 13.5 Plt Count 86 L MPV 10.1 Immature Gran % (Auto) 0.3 Neut % (Auto) 59.4 Lymph % (Auto) 23.8 [place] % (Auto) 8.1 Eos % (Auto) 7.1 H Baso % (Auto) 1.3 Lymph # (Auto) 0.9 L [place] # (Auto) 0.3 Eos # (Auto) 0.3 Baso # (Auto) 0.1 Abs Immat Gran (auto) 0.01 Absolute Neuts (auto) 2.4 Absolute Nucleated RBC 0.000 Nucleated RBC % (auto) 0.0 PT 16.5 H D INR 1.4 H Anion Gap 9 L Estim Creat Clear Calc 80.5 Estimated GFR > 60 Random Glucose 122 H Lactic Acid 2.0 Calcium 9.4 D Magnesium 1.6 Total Bilirubin 1.9 H Direct Bilirubin 0.8 H AST 122 H ALT 69 H Alkaline Phosphatase 84 Ammonia 87 H Total Creatine Kinase 1720 H Troponin I High Sens 4.0 D B-Natriuretic Peptide < 10 Total Protein 7.6 Albumin 3.6 Lipase 33 Procalcitonin 0.03 Ethyl Alcohol < 10 Influenza Type A (PCR) NEGATIVE Influenza Type B (PCR) NEGATIVE RSV RNA Qual (PCR) NEGATIVE SARS-CoV-2 RNA (RT-PCR) NEGATIVE Blood Type O Positive Antibody Screen NEGATIVE Imaging Radiologist's Impressions: Impressions Chest X-Ray 10/28/23 14:47 IMPRESSION: Low lung volumes. Pulmonary vascular congestion and probable mild interstitial pulmonary edema. No consolidation. Head CT 10/28/23 15:05 IMPRESSION: No acute intracranial pathology. Abdomen Ultrasound 10/28/23 16:53 IMPRESSION: The main portal vein is patent without evidence of thrombus. Assessment and Plan (1) Rhabdomyolysis: Qualifiers: Rhabdomyolysis type: non-traumatic Qualified Code(s): M62.82 - Rhabdomyolysis Status: Acute (2) Alcohol use disorder: Status: Acute (3) Acute hepatic encephalopathy: Status: Acute Plan Pt is a 68-year-old male with a PMH significant for?HTN, hepatic cirrhosis complicated by pancytopenia and portal vein thrombosis anticoagulated with Lovenox, polysubstance use, GERD, and long hx of medication noncompliance who presents to the ED for evaluation of?altered mental status. Pt will be admitted to the hospital for acute encephalopathy in the setting of alcoholic cirrhosis as well as acute alcohol withdrawal. Acute metabolic hepatic encephalopathy in the setting of alcoholic cirrhosis Patient with AMS, ammonia 87 Likely secondary to medication noncompliance Patient given lactulose 20 g p.o. in ED Will treat with lactulose 20 g p.o. b.i.d. Continue home diuretics Monitor mentation Rhabdomyolysis CPK 1720 at time of presentation Pt placed on maintenance fluids, will receive total of 1L Follow CPK Alcohol use disorder Concern for withdrawal Patient started on phenobarb protocol in the ED, will continue Monitor on CIWA Thiamine, folic acid, multivitamin Addiction medicine consult Pancytopenia Secondary to alcoholic cirrhosis Stable, at baseline for patient Follow CBC Chronic venous stasis dermatitis Ammonium lactate lotion Full Code Attending:?Dr. Clay DVT Prophylaxis: Pneumatic boots due to thrombocytopenia Pt will require a hospitalization of at least two nights for treatment of?acute metabolic hepatic encephalopathy in the setting of alcoholic cirrhosis likely secondary to medication noncompliance. Patient will require hospitalization for administration of phenobarb protocol, and close monitoring of labs and mentation. Quality Stroke Does the patient have a stroke diagnosis?: No VTE Prior VTE?: No VTE Risk Level:: Medical - moderate - high VTE Device Contraindication: N/A - Device Ordered VTE Drug Contraindication: Treatment Not Indicated
[2023-10-28 18:35] LABS: Appearance Urine Clear; Color Urine Yellow; Glucose Urine UA Negative (Negative); Leukocyte Esterase Urine Negative (Negative); Nitrite Urine Negative (Negative); Specific Gravity - Urine <= 1.005 (1.005-1.025); Urine Blood Negative (Negative); Urine Ketones Negative (Negative); Urine Protein Negative (Neg-Trace)
[2023-10-28 18:44] LABS: Amphetamine Screen Urine Not Detected (Not Detect); Barbiturates, Urine Not Detected (Not Detect); Benzodiazepines Screen Urine Not Detected (Not Detect); Buprenorphine Scr Not Detected (Not Detect); Cannabinoid Screen Urine Not Detected (Not Detect); Cocaine Screen Urine Not Detected (Not Detect); Fentanyl, urine POSITIVE (Not Detect); Methadone Screen, Urine Positive (Not Detect); Opiate Screen Urine Not Detected (Not Detect); Oxycodone Screen Urine Not Detected (Not Detect); Phencyclidine Screen Urine Not Detected (Not Detect)
--- NOTE | 2023-10-28 18:53 | PHA.MEDREC ---
Pharmacy Consult ? Medication Reconciliation Pharmacy has completed the medication reconciliation. Patient is a poor historian. Patient has [facility], who I had contact to get list of active medications. Per claim history, only recent medication filled is pantoprazole. Geraldine Mcdonald, PharmD
[2023-10-28 19:30] VITALS: BP 124/84; PULSE 106; RESP 16; O2SAT 96
[2023-10-28] MEDS: PHENobarbitaL sodium 130 MG/ML VIAL IM Q3Hx2 146.9 MG IM (20:59)
[2023-10-28 22:21] VITALS: BP 119/64; PULSE 78; RESP 18; O2SAT 96
[2023-10-29] MEDS: PHENobarbitaL sodium 130 MG/ML VIAL IM Q3Hx2 146.9 MG IM (00:18)
--- NOTE | 2023-10-29 00:27 | PC.NURSE ---
this RN resumed care of pt at this time. a&ox2. vss and up to date. 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 pt unaware on why he's here/what year it is. pt has no complaints. updated CIWA = 6. medication administered per provider order. pt provided w/ tuna sandwich and gingerale which was requested. pt ate 100% of snack. IVF continue to infuse at 100mls/hr. IV remains patent/intact. no sob/wob noted. respirations even and unlabored. pt resting in no apparent distress w/ the lights dimmed. awaiting bed assignment. plan of care ongoing. call cantu placed within reach.
--- NOTE | 2023-10-29 05:38 | PC.NURSE ---
pt continues to rest comfortably throughout the night in no apparent distress. nsr on the supervisor plate forming. no sob/wob noted. respirations remain even and unlabored. awaiting bed assignment. plan of care ongoing. call cantu placed within reach.
[2023-10-29 05:42] VITALS: BP 102/52; PULSE 81; RESP 12; TEMP 36.7; O2SAT 98
[2023-10-29] MEDS: Omeprazole 20 MG CAPSULE.DR PO ×2 (05:48→16:30)
[2023-10-29 06:11] LABS: MANUAL DIFF FLAG NO
[2023-10-29 06:20] LABS: Ammonia 115 umol/L (13-55)
[2023-10-29 06:27] LABS: Anion Gap 9 (12-20); Basophils Absolute Auto 0.1 X10*3/uL (0.0-0.2); Basophils Percent Auto 1.6 % (0-2); Blood Urea Nitrogen 8 mg/dL (9-16); Calcium 8.5 mg/dL (8.4-10.2); Carbon Dioxide 26 mmol/L (22-29); Chloride 106 mmol/L (96-108); Creatinine Clr Calc Pharmacy 99.9; Eosinophils Absolute Auto 0.2 X10*3/uL (0.0-0.4); Eosinophils Percent Auto 7.7 % (0-4); Estimated Glomerular Filt Rate > 60; Glucose Random 84 mg/dL (60-115); Hematocrit 35.1 % (42.0-52.0); Hemoglobin 11.7 g/dl (14.0-18.0); Imm Gran Abs Auto 0.01 X10*3/uL (0.00-0.03); Imm Gran Pct Auto 0.3 % (0.0-0.4); Lymphocytes Percent Auto 33.1 % (20-40); Mean Corpuscular HGB Conc 33.3 g/dl (31.0-36.0); Mean Corpuscular Hemoglobin 30.5 pg (27.0-33.0); Mean Corpuscular Volume 91.4 fL (80.0-98.0); Mean Platelet Volume 10.6 fL (9.4-12.4); Monocytes Absolute Auto 0.3 X10*3/uL (0.1-1.2); Monocytes Percent Auto 8.4 % (2-11); Neutrophils Absolute Auto 1.5 x10*3/uL (2.0-8.3); Neutrophils Percent Auto 48.9 % (45-73); Potassium 3.2 mmol/L (3.3-5.1); Red Blood Count 3.84 X10*6/uL (4.60-5.80); Red Cell Distribution Width 13.5 % (11.0-16.0); Sodium 138 mmol/L (135-145); White Blood Count 3.1 X10*3/uL (4.8-10.8)
[2023-10-29 06:29] LABS: Platelet Count 74 X10*3/uL (160-400)
[2023-10-29 08:13] VITALS: BP 114/66; PULSE 72; RESP 12; TEMP 36.4; O2SAT 95
[2023-10-29] MEDS: Lactulose 20 GM/30 ML SOLUTION 30 GM PO ×3 (11:30→21:58)
[2023-10-29 11:31] VITALS: BP 114/66
[2023-10-29] MEDS: Furosemide 40 MG TABLET PO (11:31)
[2023-10-29] MEDS: Sucralfate Oral Suspension 1 GM/10 ML ORAL.SUSP PO ×3 (11:31→21:56)
[2023-10-29] MEDS: Spironolactone 25 MG TABLET 100 MG PO (11:31)
[2023-10-29] MEDS: Folic Acid 1 MG TABLET PO (11:32)
[2023-10-29] MEDS: PHENobarbitaL 15 MG TABLET 45 MG PO ×2 (11:32→21:56)
[2023-10-29] MEDS: Thiamine HCL 100 MG TABLET PO (11:32)
[2023-10-29] MEDS: 0.9 % Sodium Chloride Flush 3 ML SYRINGE IVFLUSH ×3 (11:33→22:52)
--- NOTE | 2023-10-29 12:45 | P.PNIM_ITS ---
Subjective Subjective Date of Service: 10/29/23 Interval History: confused Physical Exam 2 Vital Signs: Vital Signs: Last Vital Signs Temp 97.6 F 10/29/23 08:13 Pulse 72 10/29/23 08:13 Resp 12 10/29/23 08:13 BP 114/66 10/29/23 11:31 Pulse Ox 95 10/29/23 08:13 O2 Del Method Room Air 10/29/23 08:13 BMI result Body Mass Index 33.9 alert, confused, mild asterixis Objective Data Active Medications Acetaminophen (Acetaminophen 325 Mg Tablet) 650 mg PO Q6H PRN PRN Reason: Pain, Mild (Pain Scale 1-3) Docusate Sodium (Docusate Sodium 100 Mg Capsule) 100 mg PO BID PRN PRN Reason: Constipation Folic Acid (Folic Acid 1 Mg Tablet) 1 mg PO DAILY [facility] Last Admin: 10/29/23 11:32 Dose: 1 mg Documented By: ANNABELLA Furosemide (Furosemide 40 Mg Tablet) 40 mg PO DAILY [facility]; Protocol Last Admin: 10/29/23 11:31 Dose: 40 mg Documented By: ANNABELLA Lactic Acid (Ammonium Lactate 12 % Lotion 226 Gm Bottle) 1 appl TOPICAL BID [facility]; Protocol Last Admin: 10/29/23 11:33 Dose: Not Given Documented By: ANNABELLA Non-Admin Reason: Med Not Available Lactulose (Lactulose 20 Gm/30 Ml Solution) 30 gm PO TID [facility] Last Admin: 10/29/23 11:30 Dose: 30 gm Documented By: ANNABELLA Melatonin (Melatonin 3 Mg Tablet) 6 mg PO BEDTIME PRN PRN Reason: Insomnia Omeprazole (Omeprazole 20 Mg Capsule.) 20 mg PO BID@0630,1630 [facility] Last Admin: 10/29/23 05:48 Dose: 20 mg Documented By: INDRA Ondansetron HCl (Ondansetron Hcl 4 Mg/2 Ml Vial) 4 mg IVPUSH Q8H PRN PRN Reason: Nausea and Vomiting Pharmacy Consult (Consult Rx Etoh Phenob Im/Po) 1 each MISCELLANE ONCE PRN; Protocol PRN Reason: Consult order Phenobarbital (Phenobarbital 15 Mg Tablet) 45 mg PO BID [facility]; Protocol Stop: 10/30/23 21:01 Last Admin: 10/29/23 11:32 Dose: 45 mg Documented By: ANNABELLA Phenobarbital (Phenobarbital 15 Mg Tablet) 15 mg PO BID [facility]; Protocol Stop: 11/01/23 21:01 Phenobarbital (Phenobarbital 15 Mg Tablet) 15 mg PO DAILY [facility] Stop: 11/03/23 09:01 Sodium Chloride (0.9 % Sodium Chloride Flush 3 Ml Syringe) 3 ml IVFLUSH QSHIFT [facility] Last Admin: 10/29/23 11:33 Dose: 3 ml Documented By: ANNABELLA Spironolactone (Spironolactone 25 Mg Tablet) 100 mg PO DAILY [facility]; Protocol Last Admin: 10/29/23 11:31 Dose: 100 mg Documented By: ANNABELLA Sucralfate (Sucralfate Oral Suspension 1 Gm/10 Ml Oral.Susp) 1 gm PO QIDACHS [facility] Last Admin: 10/29/23 11:31 Dose: 1 gm Documented By: ANNABELLA Thiamine HCl (Thiamine Hcl 100 Mg Tablet) 100 mg PO DAILY [facility] Last Admin: 10/29/23 11:32 Dose: 100 mg Documented By: ANNABELLA Labs 10/29/23 06:07 10/29/23 06:07 Labs: Laboratory Results - last 24 hr 10/28/23 10/28/23 10/28/23 15:03 15:13 18:27 MCV 90.2 MCH 30.8 MCHC 34.2 RDW 13.5 Plt Count 86 L MPV 10.1 Immature Gran % (Auto) 0.3 Neut % (Auto) 59.4 Lymph % (Auto) 23.8 [place] % (Auto) 8.1 Eos % (Auto) 7.1 H Baso % (Auto) 1.3 Lymph # (Auto) 0.9 L [place] # (Auto) 0.3 Eos # (Auto) 0.3 Baso # (Auto) 0.1 Abs Immat Gran (auto) 0.01 Absolute Neuts (auto) 2.4 Absolute Nucleated RBC 0.000 Nucleated RBC % (auto) 0.0 PT 16.5 H D INR 1.4 H Anion Gap 9 L Estim Creat Clear Calc 80.5 Estimated GFR > 60 Random Glucose 122 H Lactic Acid 2.0 Calcium 9.4 D Magnesium 1.6 Total Bilirubin 1.9 H Direct Bilirubin 0.8 H AST 122 H ALT 69 H Alkaline Phosphatase 84 Ammonia 87 H Total Creatine Kinase 1720 H Troponin I High Sens 4.0 D B-Natriuretic Peptide < 10 Total Protein 7.6 Albumin 3.6 Lipase 33 Procalcitonin 0.03 Urine Color Yellow Urine Appearance Clear Urine pH 7.0 Ur Specific [place] <= 1.005 Urine Protein Negative Urine Glucose (UA) Negative Urine Ketones Negative Urine Blood Negative Urine Nitrite Negative Ur Leukocyte Esterase Negative Urine Opiates Screen Not Detected Ur Buprenorphine Scrn Not Detected Ur Oxycodone Screen Not Detected Urine Methadone Screen Positive H Urine Fentanyl Screen POSITIVE H Ur Barbiturates Screen Not Detected Ur Phencyclidine Scrn Not Detected Ur Amphetamines Screen Not Detected U Benzodiazepines Scrn Not Detected Urine Cocaine Screen Not Detected U Marijuana (THC) Screen Not Detected Ethyl Alcohol < 10 Influenza Type A (PCR) NEGATIVE Influenza Type B (PCR) NEGATIVE RSV RNA Qual (PCR) NEGATIVE SARS-CoV-2 RNA (RT-PCR) NEGATIVE Blood Type O Positive Antibody Screen NEGATIVE 10/29/23 10/29/23 06:07 06:08 MCV 91.4 MCH 30.5 MCHC 33.3 RDW 13.5 Plt Count 74 L MPV 10.6 Immature Gran % (Auto) 0.3 Neut % (Auto) 48.9 Lymph % (Auto) 33.1 [place] % (Auto) 8.4 Eos % (Auto) 7.7 H Baso % (Auto) 1.6 Lymph # (Auto) 1.0 L [place] # (Auto) 0.3 Eos # (Auto) 0.2 Baso # (Auto) 0.1 Abs Immat Gran (auto) 0.01 Absolute Neuts (auto) 1.5 L Absolute Nucleated RBC 0.000 Nucleated RBC % (auto) 0.0 PT INR Anion Gap 9 L Estim Creat Clear Calc 99.9 Estimated GFR > 60 Random Glucose 84 Lactic Acid Calcium 8.5 D Magnesium Total Bilirubin Direct Bilirubin AST ALT Alkaline Phosphatase Ammonia 115 H Total Creatine Kinase 962 H Troponin I High Sens B-Natriuretic Peptide Total Protein Albumin Lipase Procalcitonin Urine Color Urine Appearance Urine pH Ur Specific [place] Urine Protein Urine Glucose (UA) Urine Ketones Urine Blood Urine Nitrite Ur Leukocyte Esterase Urine Opiates Screen Ur Buprenorphine Scrn Ur Oxycodone Screen Urine Methadone Screen Urine Fentanyl Screen Ur Barbiturates Screen Ur Phencyclidine Scrn Ur Amphetamines Screen U Benzodiazepines Scrn Urine Cocaine Screen U Marijuana (THC) Screen Ethyl Alcohol Influenza Type A (PCR) Influenza Type B (PCR) RSV RNA Qual (PCR) SARS-CoV-2 RNA (RT-PCR) Blood Type Antibody Screen Assessment and Plan (1) Alcohol use disorder: Status: Acute Plan 68M PMH alcoholic cirrhosis, alcohol dependence, hypertension, portal vein thrombosis, polysubstance abuse presented with altered mental status Acute metabolic encephalopathy due to hepatic encephalopathy due to alcoholic cirrhosis Lactulose Rifaximin Alcohol dependence with withdrawal Phenobarb Mild rhabdomyolysis Resolved DVT prophylaxis-mechanical due to thrombocytopenia Full code Reason for continued hospitalization: Not at baseline mental status Quality Stroke Does the patient have a stroke diagnosis?: No VTE Prior VTE?: No VTE Risk Level:: Medical - moderate - high VTE Device Contraindication: N/A - Device Ordered VTE Drug Contraindication: Treatment Not Indicated
--- NOTE | 2023-10-29 14:34 | PC.NURSE ---
Family of garcia patient notified this rn patient was asking for help, upon entering the room patient had BM in bed, bedpan, floor. Patient cleaned and repositioned for comfort, floor and equipment cleaned. commode at bedside
[2023-10-29 16:24] VITALS: BP 106/63; PULSE 71; RESP 16; TEMP 36.6; O2SAT 100
--- NOTE | 2023-10-29 16:34 | PC.NURSE ---
assumed care of this patient at 1500, patient resting on stretcher, requesting food, snacks given at this time.
[2023-10-29 20:36] VITALS: BP 101/65; PULSE 70; RESP 16; O2SAT 98
[2023-10-29 21:06] VITALS: BP 133/75; PULSE 69; RESP 18; TEMP 36.5; O2SAT 98
[2023-10-29 21:43] VITALS: BMI 33.3
[2023-10-29] MEDS: rifAXIMin 550 MG TABLET PO (21:56)
--- NOTE | 2023-10-29 22:23 | PC.NURSE ---
patient alert,comfortable,resting in bed,admitted [facility].
[2023-10-30 02:46] VITALS: BP 109/50; PULSE 63; RESP 18; TEMP 36.5; O2SAT 97
[2023-10-30] MEDS: Omeprazole 20 MG CAPSULE.DR PO ×2 (06:08→16:30)
[2023-10-30 06:22] LABS: Hematocrit 35.1 % (42.0-52.0); Hemoglobin 11.8 g/dl (14.0-18.0); Mean Corpuscular HGB Conc 33.6 g/dl (31.0-36.0); Mean Corpuscular Hemoglobin 30.3 pg (27.0-33.0); Mean Platelet Volume 10.3 fL (9.4-12.4); Platelet Count 65 X10*3/uL (160-400); Red Cell Distribution Width 13.4 % (11.0-16.0); White Blood Count 2.6 X10*3/uL (4.8-10.8)
[2023-10-30 06:36] LABS: Alanine Aminotransferase 47 U/L (0-40); Albumin Level 2.8 g/dL (3.5-5.0); Alkaline Phosphatase 74 U/L (39-117); Anion Gap 9 (12-20); Aspartate Amino Transferase 65 U/L (5-37); Bilirubin Direct 0.4 mg/dL (0.0-0.5); Bilirubin Total 0.9 mg/dL (0.0-1.0); Blood Urea Nitrogen 8 mg/dL (9-16); Calcium 8.8 mg/dL (8.4-10.2); Carbon Dioxide 29 mmol/L (22-29); Chloride 104 mmol/L (96-108); Creatinine Clr Calc Pharmacy 92.7; Estimated Glomerular Filt Rate > 60; Glucose Fasting 75 mg/dL (60-99); Magnesium 1.5 mg/dL (1.6-2.6); Potassium 3.7 mmol/L (3.3-5.1); Sodium 138 mmol/L (135-145)
[2023-10-30 07:32] VITALS: BP 103/69; PULSE 68; RESP 18; TEMP 36.5; O2SAT 97
[2023-10-30] MEDS: 0.9 % Sodium Chloride Flush 3 ML SYRINGE IVFLUSH ×3 (07:38→20:38)
[2023-10-30] MEDS: Sucralfate Oral Suspension 1 GM/10 ML ORAL.SUSP PO ×4 (07:38→20:31)
[2023-10-30] MEDS: Magnesium Oxide 400 MG TABLET PO ×2 (07:38→16:30)
[2023-10-30] MEDS: PHENobarbitaL 15 MG TABLET 45 MG PO ×2 (08:01→20:32)
[2023-10-30] MEDS: rifAXIMin 550 MG TABLET PO ×2 (08:02→20:32)
[2023-10-30] MEDS: Furosemide 40 MG TABLET PO (08:02)
[2023-10-30] MEDS: Spironolactone 25 MG TABLET 100 MG PO (08:02)
[2023-10-30] MEDS: Thiamine HCL 100 MG TABLET PO (08:02)
[2023-10-30] MEDS: Folic Acid 1 MG TABLET PO (08:02)
[2023-10-30] MEDS: Lactulose 20 GM/30 ML SOLUTION 30 GM PO ×2 (08:02→20:32)
[2023-10-30] MEDS: Ammonium Lactate 12 % Lotion 226 GM BOTTLE 1 APPL TOPICAL ×2 (08:08→20:39)
--- NOTE | 2023-10-30 08:23 | PC.NURSE ---
Methadone verify with [facility], Faxed to pharmacy at this time. 40mg daily.
--- NOTE | 2023-10-30 09:08 | HE.PHANOTE ---
METHADONE Patient receives methadone from [facility] ([phone]). Laura from [facility] confirmed patient last received 40mg on 10/28/23 at 11:32am.
[2023-10-30] MEDS: methADONE HCl 20 MG/2 ML ORAL.CONC 40 MG PO (09:21)
--- NOTE | 2023-10-30 10:04 | HO.PM.IMPN ---
Subjective Subjective Date of Service: 10/30/23 Interval History: 4bms Physical Exam Vital Signs: Vital Signs: Last Vital Signs Temp 97.7 F 10/30/23 07:32 Pulse 68 10/30/23 07:32 Resp 18 10/30/23 07:32 BP 103/69 10/30/23 07:32 Pulse Ox 97 10/30/23 07:32 O2 Del Method Room Air 10/30/23 07:32 BMI result Body Mass Index 33.3 General: AO X 3, no acute distress Resp: CTA bilateral, no accessory muscles used CVS: S1,S2,RRR GI: soft, non tender, non distended Neuro: motor grossly intact, alert Objective Data Active Medications Acetaminophen (Acetaminophen 325 Mg Tablet) 650 mg PO Q6H PRN PRN Reason: Pain, Mild (Pain Scale 1-3) Docusate Sodium (Docusate Sodium 100 Mg Capsule) 100 mg PO BID PRN PRN Reason: Constipation Folic Acid (Folic Acid 1 Mg Tablet) 1 mg PO DAILY [facility] Last Admin: 10/30/23 08:02 Dose: 1 mg Documented By: TREVA Furosemide (Furosemide 40 Mg Tablet) 40 mg PO DAILY [facility]; Protocol Last Admin: 10/30/23 08:02 Dose: 40 mg Documented By: TREVA Lactic Acid (Ammonium Lactate 12 % Lotion 226 Gm Bottle) 1 appl TOPICAL BID [facility]; Protocol Last Admin: 10/30/23 08:08 Dose: 1 appl Documented By: TREVA Lactulose (Lactulose 20 Gm/30 Ml Solution) 30 gm PO TID [facility] Last Admin: 10/30/23 08:02 Dose: 30 gm Documented By: TREVA Magnesium Oxide (Magnesium Oxide 400 Mg Tablet) 400 mg PO BIDPC [facility] Last Admin: 10/30/23 07:38 Dose: 400 mg Documented By: TREVA Melatonin (Melatonin 3 Mg Tablet) 6 mg PO BEDTIME PRN PRN Reason: Insomnia Methadone HCl (Methadone Hcl 20 Mg/2 Ml Oral.Conc) 40 mg PO DAILY [facility] Last Admin: 10/30/23 09:21 Dose: 40 mg Documented By: TREVA Omeprazole (Omeprazole 20 Mg Capsule.Dr) 20 mg PO BID@0630,1630 [facility] Last Admin: 10/30/23 06:08 Dose: 20 mg Documented By: WOODY Ondansetron HCl (Ondansetron Hcl 4 Mg/2 Ml Vial) 4 mg IVPUSH Q8H PRN PRN Reason: Nausea and Vomiting Pharmacy Consult (Consult Rx Etoh Phenob Im/Po) 1 each MISCELLANE ONCE PRN; Protocol PRN Reason: Consult order Phenobarbital (Phenobarbital 15 Mg Tablet) 45 mg PO BID [facility]; Protocol Stop: 10/30/23 21:01 Last Admin: 10/30/23 08:01 Dose: 45 mg Documented By: TREVA Phenobarbital (Phenobarbital 15 Mg Tablet) 15 mg PO BID [facility]; Protocol Stop: 11/01/23 21:01 Phenobarbital (Phenobarbital 15 Mg Tablet) 15 mg PO DAILY [facility] Stop: 11/03/23 09:01 Rifaximin (Rifaximin 550 Mg Tablet) 550 mg PO BID [facility] Last Admin: 10/30/23 08:02 Dose: 550 mg Documented By: TREVA Sodium Chloride (0.9 % Sodium Chloride Flush 3 Ml Syringe) 3 ml IVFLUSH QSHIFT [facility] Last Admin: 10/30/23 07:38 Dose: 3 ml Documented By: TREVA Spironolactone (Spironolactone 25 Mg Tablet) 100 mg PO DAILY [facility]; Protocol Last Admin: 10/30/23 08:02 Dose: 100 mg Documented By: TREVA Sucralfate (Sucralfate Oral Suspension 1 Gm/10 Ml Oral.Susp) 1 gm PO QIDACHS [facility] Last Admin: 10/30/23 07:38 Dose: 1 gm Documented By: TREVA Thiamine HCl (Thiamine Hcl 100 Mg Tablet) 100 mg PO DAILY [facility] Last Admin: 10/30/23 08:02 Dose: 100 mg Documented By: TREVA Labs 10/30/23 05:55 10/30/23 05:55 Labs: Laboratory Results - last 24 hr 10/30/23 05:55 MCV 90.0 MCH 30.3 MCHC 33.6 RDW 13.4 Plt Count 65 L MPV 10.3 Absolute Nucleated RBC 0.000 Nucleated RBC % (auto) 0.0 Anion Gap 9 L Estim Creat Clear Calc 92.7 Estimated GFR > 60 Fasting Glucose 75 Calcium 8.8 Magnesium 1.5 L Total Bilirubin 0.9 Direct Bilirubin 0.4 AST 65 H ALT 47 H Alkaline Phosphatase 74 Total Protein 6.0 L Albumin 2.8 L Microbiology Microbiology Results: Microbiology 10/28/23 15:13 Blood Culture - Preliminary Blood - Venous No growth after 24 hours. 10/28/23 15:03 Blood Culture - Preliminary Blood - Venous No growth after 24 hours. Assessment and Plan (1) Alcohol use disorder: Status: Acute Plan 68M PMH alcoholic cirrhosis, alcohol dependence, hypertension, portal vein thrombosis, polysubstance abuse presented with altered mental status Acute metabolic encephalopathy due to hepatic encephalopathy due to alcoholic cirrhosis (with pancytopenia, varices) appears back to baseline Lactulose for 2-4 bm/day Rifaximin Alcohol dependence with withdrawal resolved on Phenobarb Mild rhabdomyolysis Resolved DVT prophylaxis-mechanical due to thrombocytopenia Full code Reason for continued hospitalization: safe dispo (pt eval) Quality Stroke Does the patient have a stroke diagnosis?: No VTE Prior VTE?: No VTE Risk Level:: Medical - moderate - high VTE Device Contraindication: N/A - Device Ordered VTE Drug Contraindication: Treatment Not Indicated
--- NOTE | 2023-10-30 13:39 | MHC.CM.PN ---
Addendum entered by Mary Bah RN 10/30/23 15:18: [facility] INTERESTED AND REQUESTING GUEST DOSING BE SET UP WEDNESDAY. 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 PT REPORTS HE USES A [facility] FOR AMBULATION AT [facility], NO HOME SERVICES HOWEVER REPORTS HE HAS METHADONE AT [facility], PT WILL NEED GUEST DOSING SET UP IF P.T. REC'S STR. PCP WAS CORRIE KING HOWEVER PT MISSED APPTS AND REPORTS SHE DROPPED HIM, IF DISCHARGING HOME PT WILL NEED NEW PT APPT.
[2023-10-30] MEDS: Acetaminophen 325 MG TABLET 650 MG PO (14:47)
[2023-10-30 15:50] VITALS: BP 104/58; PULSE 75; RESP 16; TEMP 36.7; O2SAT 96
--- NOTE | 2023-10-30 16:31 | PC.NURSE ---
pt refusing fall interventions at this time.
[2023-10-30 19:18] VITALS: BP 109/58; PULSE 82; RESP 17; TEMP 36.6; O2SAT 95
[2023-10-31 03:12] VITALS: BP 106/61; PULSE 70; RESP 18; TEMP 36.6; O2SAT 96
[2023-10-31] MEDS: Omeprazole 20 MG CAPSULE.DR PO ×2 (05:52→15:40)
[2023-10-31 07:49] VITALS: BP 104/58; PULSE 64; RESP 16; TEMP 36.6; O2SAT 99
[2023-10-31] MEDS: Lactulose 20 GM/30 ML SOLUTION 30 GM PO ×3 (08:22→21:23)
[2023-10-31 08:23] VITALS: BP 104/58
[2023-10-31] MEDS: Magnesium Oxide 400 MG TABLET PO ×2 (08:23→17:22)
[2023-10-31] MEDS: Furosemide 40 MG TABLET PO (08:23)
[2023-10-31] MEDS: Sucralfate Oral Suspension 1 GM/10 ML ORAL.SUSP PO ×4 (08:23→21:23)
[2023-10-31] MEDS: Spironolactone 25 MG TABLET 100 MG PO (08:23)
[2023-10-31] MEDS: methADONE HCl 20 MG/2 ML ORAL.CONC 40 MG PO (08:23)
[2023-10-31] MEDS: Folic Acid 1 MG TABLET PO (08:24)
[2023-10-31] MEDS: PHENobarbitaL 15 MG TABLET PO ×2 (08:24→21:23)
[2023-10-31] MEDS: Thiamine HCL 100 MG TABLET PO (08:24)
[2023-10-31] MEDS: rifAXIMin 550 MG TABLET PO ×2 (08:24→21:23)
[2023-10-31] MEDS: Ammonium Lactate 12 % Lotion 226 GM BOTTLE 1 APPL TOPICAL ×2 (08:26→21:24)
[2023-10-31] MEDS: 0.9 % Sodium Chloride Flush 3 ML SYRINGE IVFLUSH ×2 (08:30→15:40)
--- NOTE | 2023-10-31 09:14 | HO.PM.IMPN ---
Subjective Subjective Date of Service: 10/31/23 Interval History: feeling better, having BMs Physical Exam Vital Signs: Vital Signs: Last Vital Signs Temp 97.8 F 10/31/23 07:49 Pulse 64 10/31/23 07:49 Resp 16 10/31/23 07:49 BP 104/58 L 10/31/23 08:23 Pulse Ox 99 10/31/23 07:49 O2 Del Method Room Air 10/31/23 07:49 BMI result Body Mass Index 33.3 General: AO X 3, no acute distress Resp: CTA bilateral, no accessory muscles used CVS: S1,S2,RRR GI: soft, non tender, non distended Neuro: motor grossly intact, alert Objective Data Active Medications Acetaminophen (Acetaminophen 325 Mg Tablet) 650 mg PO Q6H PRN PRN Reason: Pain, Mild (Pain Scale 1-3) Last Admin: 10/30/23 14:47 Dose: 650 mg Documented By: TREVA Docusate Sodium (Docusate Sodium 100 Mg Capsule) 100 mg PO BID PRN PRN Reason: Constipation Folic Acid (Folic Acid 1 Mg Tablet) 1 mg PO DAILY [facility] Last Admin: 10/31/23 08:24 Dose: 1 mg Documented By: TYSHAWN Furosemide (Furosemide 40 Mg Tablet) 40 mg PO DAILY [facility]; Protocol Last Admin: 10/31/23 08:23 Dose: 40 mg Documented By: TYSHAWN Lactic Acid (Ammonium Lactate 12 % Lotion 226 Gm Bottle) 1 appl TOPICAL BID [facility]; Protocol Last Admin: 10/31/23 08:26 Dose: 1 appl Documented By: TYSHAWN Lactulose (Lactulose 20 Gm/30 Ml Solution) 30 gm PO TID [facility] Last Admin: 10/31/23 08:22 Dose: 30 gm Documented By: TYSHAWN Magnesium Oxide (Magnesium Oxide 400 Mg Tablet) 400 mg PO BIDPC [facility] Last Admin: 10/31/23 08:23 Dose: 400 mg Documented By: TYSHAWN Melatonin (Melatonin 3 Mg Tablet) 6 mg PO BEDTIME PRN PRN Reason: Insomnia Methadone HCl (Methadone Hcl 20 Mg/2 Ml Oral.Conc) 40 mg PO DAILY [facility] Last Admin: 10/31/23 08:23 Dose: 40 mg Documented By: TYSHAWN Omeprazole (Omeprazole 20 Mg Capsule.Dr) 20 mg PO BID@0630,1630 [facility] Last Admin: 10/31/23 05:52 Dose: 20 mg Documented By: WOODY Ondansetron HCl (Ondansetron Hcl 4 Mg/2 Ml Vial) 4 mg IVPUSH Q8H PRN PRN Reason: Nausea and Vomiting Pharmacy Consult (Consult Rx Etoh Phenob Im/Po) 1 each MISCELLANE ONCE PRN; Protocol PRN Reason: Consult order Phenobarbital (Phenobarbital 15 Mg Tablet) 15 mg PO BID [facility]; Protocol Stop: 11/01/23 21:01 Last Admin: 10/31/23 08:24 Dose: 15 mg Documented By: TYSHAWN Phenobarbital (Phenobarbital 15 Mg Tablet) 15 mg PO DAILY [facility] Stop: 11/03/23 09:01 Rifaximin (Rifaximin 550 Mg Tablet) 550 mg PO BID [facility] Last Admin: 10/31/23 08:24 Dose: 550 mg Documented By: TYSHAWN Sodium Chloride (0.9 % Sodium Chloride Flush 3 Ml Syringe) 3 ml IVFLUSH QSHIFT [facility] Last Admin: 10/31/23 08:30 Dose: 3 ml Documented By: TYSHAWN Spironolactone (Spironolactone 25 Mg Tablet) 100 mg PO DAILY [facility]; Protocol Last Admin: 10/31/23 08:23 Dose: 100 mg Documented By: TYSHAWN Sucralfate (Sucralfate Oral Suspension 1 Gm/10 Ml Oral.Susp) 1 gm PO QIDACHS [facility] Last Admin: 10/31/23 08:23 Dose: 1 gm Documented By: TYSHAWN Thiamine HCl (Thiamine Hcl 100 Mg Tablet) 100 mg PO DAILY [facility] Last Admin: 10/31/23 08:24 Dose: 100 mg Documented By: TYSHAWN Labs 10/30/23 05:55 10/30/23 05:55 Microbiology Microbiology Results: Microbiology 10/28/23 15:13 Blood Culture - Preliminary Blood - Venous No growth after 48 hours. 10/28/23 15:03 Blood Culture - Preliminary Blood - Venous No growth after 48 hours. Assessment and Plan (1) Alcohol use disorder: Status: Acute Plan 68M PMH alcoholic cirrhosis, alcohol dependence, hypertension, portal vein thrombosis, polysubstance abuse presented with altered mental status Acute metabolic encephalopathy due to hepatic encephalopathy due to alcoholic cirrhosis (with pancytopenia, varices) appears back to baseline Lactulose for 2-4 bm/day Rifaximin debility plan for STR Alcohol dependence with withdrawal resolved on Phenobarb Mild rhabdomyolysis Resolved DVT prophylaxis-mechanical due to thrombocytopenia Full code Reason for continued hospitalization: safe dispo Quality Stroke Does the patient have a stroke diagnosis?: No VTE Prior VTE?: No VTE Risk Level:: Medical - moderate - high VTE Device Contraindication: N/A - Device Ordered VTE Drug Contraindication: Treatment Not Indicated
--- NOTE | 2023-10-31 09:50 | MHC.RECOVRN ---
Met with pt in 370 after consult placed to Addiction Medicine for AUD. Pt had presented to the ED reporting n/v/d and alcohol use. Upon evaluation, pt admitted for rhabdomyolysis, alcohol use, and acute heptaic encephalopathy. Pt sitting in bed, awake, alert, easily engages in conversation, appears comfortable. When asked about alcohol use, pt states I'm not really drinking. Pt reports 1-2 beers daily. Pt reports he has reduced the amount he drinks due to wanting to use other substances when he drinks in larger amounts. Pt states I want to be clean. Pt is currently receiving methadone through [facility], 40 mg daily x 2 years, reports it has had a positive effect. Pt denies withdrawal symptoms. Pt reports last heroin/fentanyl use a long time ago, however, pts UDS positive for fentanyl and methadone. Pt reports recovery overall is going well and he does not have any concerns. Discussed outpatient recovery supports and options, including recovery coaching. Pt is not interested in referrals at this time. Pt provided with written resources as well as t/w contact information if needed. Pt denies questions or concerns for t/w.
[2023-10-31] MEDS: Acetaminophen 325 MG TABLET 650 MG PO (11:27)
[2023-10-31 15:39] VITALS: BP 123/70; PULSE 69; RESP 16; TEMP 36.6; O2SAT 97
[2023-10-31] MEDS: oxyCODONE HCl Immed Release 5 MG TABLET 2.5 MG PO (17:22)
[2023-10-31 20:00] VITALS: BP 116/63; PULSE 71; RESP 16; TEMP 36.7; O2SAT 96
--- NOTE | 2023-10-31 21:31 | PC.NURSE ---
When administering evening medications, t/w found patient's blood bank band on the floor of the patient's room. Blood bank called and informed of situation. Per blood blank and chemistry- blood bank band today and does not need to be replaced at this time.
[2023-11-01] MEDS: 0.9 % Sodium Chloride Flush 3 ML SYRINGE IVFLUSH ×4 (00:51→21:14)
[2023-11-01 02:50] VITALS: BP 120/64; PULSE 98; RESP 18; TEMP 36.5; O2SAT 96
[2023-11-01] MEDS: Omeprazole 20 MG CAPSULE.DR PO ×2 (06:39→16:47)
[2023-11-01 07:32] VITALS: BP 115/68; PULSE 88; RESP 20; TEMP 36.4; O2SAT 96
[2023-11-01] MEDS: Spironolactone 25 MG TABLET 100 MG PO (08:08)
[2023-11-01] MEDS: Lactulose 20 GM/30 ML SOLUTION 30 GM PO ×2 (08:08→21:13)
[2023-11-01] MEDS: Sucralfate Oral Suspension 1 GM/10 ML ORAL.SUSP PO ×3 (08:08→16:47)
[2023-11-01] MEDS: PHENobarbitaL 15 MG TABLET PO ×2 (08:08→21:13)
[2023-11-01] MEDS: rifAXIMin 550 MG TABLET PO ×2 (08:08→21:12)
[2023-11-01] MEDS: Magnesium Oxide 400 MG TABLET PO ×2 (08:08→16:47)
[2023-11-01] MEDS: Ammonium Lactate 12 % Lotion 226 GM BOTTLE 1 APPL TOPICAL (08:09)
[2023-11-01] MEDS: methADONE HCl 20 MG/2 ML ORAL.CONC 40 MG PO (08:09)
[2023-11-01] MEDS: Folic Acid 1 MG TABLET PO (08:09)
[2023-11-01] MEDS: Furosemide 40 MG TABLET PO (08:09)
[2023-11-01] MEDS: Thiamine HCL 100 MG TABLET PO (08:09)
--- NOTE | 2023-11-01 09:45 | P.PNIM_ITS ---
Subjective Subjective Date of Service: 11/01/23 Interval History: no complaints Physical Exam 2 Vital Signs: Vital Signs: Last Vital Signs Temp 97.6 F 11/01/23 07:32 Pulse 88 11/01/23 07:32 Resp 20 11/01/23 07:32 BP 115/68 11/01/23 07:32 Pulse Ox 96 11/01/23 07:32 O2 Del Method Room Air 11/01/23 07:32 BMI result Body Mass Index 33.3 General: AO X 3, no acute distress Resp: CTA bilateral, no accessory muscles used CVS: S1,S2,RRR GI: soft, non tender, non distended Neuro: motor grossly intact, alert Objective Data Active Medications Acetaminophen (Acetaminophen 325 Mg Tablet) 650 mg PO Q6H PRN PRN Reason: Pain, Mild (Pain Scale 1-3) Last Admin: 10/31/23 11:27 Dose: 650 mg Documented By: TYSHAWN Docusate Sodium (Docusate Sodium 100 Mg Capsule) 100 mg PO BID PRN PRN Reason: Constipation Folic Acid (Folic Acid 1 Mg Tablet) 1 mg PO DAILY [facility] Last Admin: 11/01/23 08:09 Dose: 1 mg Documented By: FLORINA Furosemide (Furosemide 40 Mg Tablet) 40 mg PO DAILY [facility]; Protocol Last Admin: 11/01/23 08:09 Dose: 40 mg Documented By: FLORINA Lactic Acid (Ammonium Lactate 12 % Lotion 226 Gm Bottle) 1 appl TOPICAL BID [facility]; Protocol Last Admin: 11/01/23 08:09 Dose: 1 appl Documented By: FLORINA Lactulose (Lactulose 20 Gm/30 Ml Solution) 30 gm PO TID [facility] Last Admin: 11/01/23 08:08 Dose: 30 gm Documented By: FLORINA Magnesium Oxide (Magnesium Oxide 400 Mg Tablet) 400 mg PO BIDPC [facility] Last Admin: 11/01/23 08:08 Dose: 400 mg Documented By: FLORINA Melatonin (Melatonin 3 Mg Tablet) 6 mg PO BEDTIME PRN PRN Reason: Insomnia Methadone HCl (Methadone Hcl 20 Mg/2 Ml Oral.Conc) 40 mg PO DAILY [facility] Last Admin: 11/01/23 08:09 Dose: 40 mg Documented By: FLORINA Omeprazole (Omeprazole 20 Mg Capsule.) 20 mg PO BID@0630,1630 [facility] Last Admin: 11/01/23 06:39 Dose: 20 mg Documented By: TAB Ondansetron HCl (Ondansetron Hcl 4 Mg/2 Ml Vial) 4 mg IVPUSH Q8H PRN PRN Reason: Nausea and Vomiting Pharmacy Consult (Consult Rx Etoh Phenob Im/Po) 1 each MISCELLANE ONCE PRN; Protocol PRN Reason: Consult order Phenobarbital (Phenobarbital 15 Mg Tablet) 15 mg PO BID [facility]; Protocol Stop: 11/01/23 21:01 Last Admin: 11/01/23 08:08 Dose: 15 mg Documented By: FLORINA Phenobarbital (Phenobarbital 15 Mg Tablet) 15 mg PO DAILY [facility] Stop: 11/03/23 09:01 Rifaximin (Rifaximin 550 Mg Tablet) 550 mg PO BID [facility] Last Admin: 11/01/23 08:08 Dose: 550 mg Documented By: FLORINA Sodium Chloride (0.9 % Sodium Chloride Flush 3 Ml Syringe) 3 ml IVFLUSH QSHIFT [facility] Last Admin: 11/01/23 08:04 Dose: 3 ml Documented By: FLORINA Spironolactone (Spironolactone 25 Mg Tablet) 100 mg PO DAILY [facility]; Protocol Last Admin: 11/01/23 08:08 Dose: 100 mg Documented By: FLORINA Sucralfate (Sucralfate Oral Suspension 1 Gm/10 Ml Oral.Susp) 1 gm PO QIDACHS [facility] Last Admin: 11/01/23 08:08 Dose: 1 gm Documented By: FLORINA Thiamine HCl (Thiamine Hcl 100 Mg Tablet) 100 mg PO DAILY [facility] Last Admin: 11/01/23 08:09 Dose: 100 mg Documented By: FLORINA Labs 10/30/23 05:55 10/30/23 05:55 Assessment and Plan (1) Alcohol use disorder: Status: Acute Plan 68M PMH alcoholic cirrhosis, alcohol dependence, hypertension, portal vein thrombosis, polysubstance abuse presented with altered mental status Acute metabolic encephalopathy due to hepatic encephalopathy due to alcoholic cirrhosis (with pancytopenia, varices) back to baseline Lactulose for 2-4 bm/day Rifaximin debility plan for STR Alcohol dependence with withdrawal resolved on Phenobarb Mild rhabdomyolysis Resolved DVT prophylaxis-mechanical due to thrombocytopenia Full code Reason for continued hospitalization: safe dispo Quality Stroke Does the patient have a stroke diagnosis?: No VTE Prior VTE?: No VTE Risk Level:: Medical - moderate - high VTE Device Contraindication: N/A - Device Ordered VTE Drug Contraindication: Treatment Not Indicated
--- NOTE | 2023-11-01 10:30 | PM.DS ---
DS: Providers Provider Date of Service: 11/01/23 Date of admission: 10/28/23 17:45 Primary care physician: Unknown Physician Consults: 10/28/23 17:49 Addiction Medicine Routine Consulting Provider: Fabricio Garcia Reason for consultation: alcohol use disorder DS: Diagnosis Discharge Diagnosis (1) Alcohol use disorder: Status: Acute DS: Summary Hospital Course Hospital Course: from initial hpi: 68-year-old male with a PMH significant for HTN, hepatic cirrhosis complicated by pancytopenia and portal vein thrombosis anticoagulated with Lovenox, polysubstance use, GERD, and long hx of medication noncompliance who presents to the ED for evaluation of altered mental status. [facility] staff called EMS after finding patient in his room covered in vomit and feces. Staff also found multiple bottles of alcohol in his room. Patient was quite altered upon initial presentation to the ED. At time of this interview and exam patient alert and oriented to self and place, though not at time. Patient reports he has been compliant with all of his home medications, and denies any substance use. Reports that there were other people staying with him that were drinking and doing drugs. Patient has no acute medical complaints at this time. Denies chest pain/pressure, palpitations. No shortness of breath. Denies fever, chills, nausea, vomiting, diarrhea, abdominal pain. No headache. Denies auditory or visual hallucinations. No increase in anxiety. In the ED pt with vital signs stable and WNL. Labs were significant creatinine 0.93 (baseline 0.75), bilirubin 1.9, AST 122, ALT 69, ammonia 87, and CPK 1720. Initial troponin 4.0. BNP negative. Pancytopenia at baseline for patient: WBC 4.0, H&H 13.6/39.8, platelets 86. Ethyl alcohol levels undetectable. Tested negative for flu, RSV, COVID. CXR showed pulmonary vascular congestion and probable mild interstitial pulmonary edema without consolidation. CT of head found no acute intracranial pathology. Abdominal ultrasound found main portal vein patent without evidence of thrombus. EKG demonstrated normal sinus rhythm with left ventricular hypertrophy and prolonged QTc of 499. Pt was treated with magnesium sulfate, thiamine, furosemide, lactulose, IVF, and started on phenobarb protocol. Pt will be admitted to the hospital for acute encephalopathy in the setting of alcoholic cirrhosis as well as acute alcohol withdrawal. hospital course: Patient was admitted for acute metabolic encephalopathy due to hepatic encephalopathy due to alcoholic cirrhosis complicated by pancytopenia varices. He was treated with lactulose and had successful due to 4 bowel movements per day, rifaximin was also added. Patient's mental status significantly improved back to baseline. For alcohol dependence with withdrawal he was treated with course of phenobarbital and withdrawal symptoms resolved. Patient also noted to have mild rhabdomyolysis which resolved with IV fluids. For overall debility he was seen by physical therapy recommended short-term rehab to which he will be discharged. he is expected to require less than 30 days there. Time Attestation Discharge Coordination Time (in mins): 35 Quality: Safe Use of Opioids Does Pt have an Active Cancer Diagnosis on the Problem List?: No Quality: Stroke Does the patient have a stroke diagnosis?: No Physical Exam Vital Signs: Vital Signs: Last Vital Signs Temp 97.6 F 11/01/23 07:32 Pulse 88 11/01/23 07:32 Resp 20 11/01/23 07:32 BP 115/68 11/01/23 07:32 Pulse Ox 96 11/01/23 07:32 O2 Del Method Room Air 11/01/23 07:32 BMI result Body Mass Index 33.3 General: AO X 3, no acute distress Resp: CTA bilateral, no accessory muscles used CVS: S1,S2,RRR GI: soft, non tender, non distended Neuro: motor grossly intact, alert DS: Data Data Completed and Pending Completed studies during hospitalization [Text1]: Procedures Insertion of Endotracheal Airway into Trachea, Via Natural or Artificial Opening (08/08/23) Insertion of Infusion Device into Lower Vein, Percutaneous Approach (08/08/23) Insertion of Infusion Device into Upper Vein, Percutaneous Approach (08/08/23) Introduction of Mineral-based Topical Hemostatic Agent into Upper GI, Via Natural or Artificial Opening Endoscopic, [employer] 6 (08/08/23) Introduction of Vasopressor into Central Vein, Percutaneous Approach (08/08/23) Respiratory Ventilation, 24-96 Consecutive Hours (08/08/23) Transfusion of Nonautologous Platelets into Peripheral Vein, Percutaneous Approach (08/08/23) Labs on day of discharge: Preliminary micro results at discharge 10/28/23 15:13 Blood Culture - Preliminary Blood - Venous No growth after 48 hours. 10/28/23 15:03 Blood Culture - Preliminary Blood - Venous No growth after 48 hours. Discharge Plan Discharge Anticipated Discharge Date/Time: 11/01/23 10:28 Patient Disposition: Xfer SNF Discharge Diagnosis: hepatic encephalopathy Referrals: Physician,Unknown J [Primary Care Provider] - 1 Week Discharge Medications: New Xifaxan 550 mg Tablet 550 mg PO BID Qty: 0 0RF Continued folic acid 1 mg tablet 1 mg PO DAILY Qty: 30 0RF spironolactone 100 mg tablet 100 mg PO QAM Qty: 30 0RF Hold Instructions: resume as BP allows thiamine HCl (vitamin B1) 100 mg tablet 100 mg PO DAILY Qty: 30 0RF docusate sodium 100 mg Capsule 100 mg PO BID PRN (Reason: Constipation) sucralfate 100 mg/mL Suspension 1 g PO QIDACHS 10 Days Qty: 400 0RF methadone [Methadose] 10 mg/mL Concentrate 40 mg PO DAILY Qty: 30 0RF Rx Instructions: Partial Fill upon patient request. pantoprazole [Protonix] 40 mg tablet,delayed release (DR/EC) 40 mg PO BID 30 Days Qty: 60 0RF lactulose 20 gram/30 mL Solution 30 g PO TID Qty: 1200 0RF acetaminophen 325 mg Tablet 650 mg PO Q6H PRN (Reason: Pain) furosemide 40 mg tablet 40 mg PO DAILY Discharge Orders: Discharge Order (Routine); Ordered 11/01/23 Ordered By: Quinton Mo Diet: Advance to usual diet Activity on Discharge: As tolerated Stand Alone Forms: Patient Portal Discharge page Print Language: Algerian Care Plan Goals: recovery Health Concerns: cirrhosis Plan of Treatment: added rifaximin, continue lactulose for 2-4 bm per day, no etoh Assessment: see above
--- NOTE | 2023-11-01 11:10 | MHC.CM.PN ---
PT MEDICALLY CLEARED FOR DC TO STR AT [facility] PENDING GUEST DOSING IS SET UP, CM CONTACTED [facility] AND STAFF REPORTED THEY HAD SEVERAL CALL INS AND HOPING TO GET THIS COMPLETED TODAY, [facility] HAS BEEN FAXED DC SUMMARY AND LAST DOSE LETTER AND ARE AWAITING LETTER FROM [facility], TRANSPORT TO BE SET UP ONCE GUEST DOSING IS CONFIRMED
--- NOTE | 2023-11-01 14:38 | MHC.CM.PN ---
GUEST DOSING CONFIRMED W/HENRY AT [facility], LESS THAN 30DAY ADDED TO DC SUMMARY AND ADRIANO FOR TRANSPORT AT 6:30PM.
--- NOTE | 2023-11-01 14:40 | MHC.CM.PN ---
CM RECEIVED CALL FROM [facility][NOTE 3] [facility] STAFF WHO REPORTED CONCERNS PT WAS NEEDING QUITE A BIT OF ASSISTANCE W/TOILETING/DRESSING ETC AND THOUGHT PT NEEDED PLACEMENT, [facility][NOTE 3] STAFF AWARE PT GOING TO [facility] FOR STR LATER TODAY, [facility][NOTE 3] STAFF DID CONFIRM THAT PT DOES NOT HAVE A PCP AND HAS LEFT [facility] MULTIPLE TIMES WHEN THEY HAD MADE A NEW PT PCP APPT FOR PT THEREFORE PT NOT BEING ABLE TO HAVE [facility] SERVICES.
[2023-11-01 15:27] VITALS: BP 121/58; PULSE 68; RESP 20; TEMP 36.3; O2SAT 98
[2023-11-01] MEDS: Acetaminophen 325 MG TABLET 650 MG PO (17:03)
[2023-11-01 19:13] VITALS: BP 104/54; PULSE 78; RESP 16; TEMP 36.8; O2SAT 96
[2023-11-01] MEDS: Melatonin 3 MG TABLET 6 MG PO (21:12)
[2023-11-02 03:53] VITALS: BP 123/75; PULSE 89; RESP 18; TEMP 36.8; O2SAT 95
[2023-11-02] MEDS: Omeprazole 20 MG CAPSULE.DR PO (05:55)
[2023-11-02 07:24] VITALS: BP 112/69; PULSE 69; RESP 18; TEMP 36.7; O2SAT 95
[2023-11-02] MEDS: Sucralfate Oral Suspension 1 GM/10 ML ORAL.SUSP PO ×2 (08:00→10:47)
[2023-11-02 08:01] VITALS: BP 112/69
[2023-11-02] MEDS: Folic Acid 1 MG TABLET PO (08:01)
[2023-11-02] MEDS: PHENobarbitaL 15 MG TABLET PO (08:01)
[2023-11-02] MEDS: methADONE HCl 20 MG/2 ML ORAL.CONC 40 MG PO (08:01)
[2023-11-02] MEDS: Furosemide 40 MG TABLET PO (08:01)
[2023-11-02] MEDS: Spironolactone 25 MG TABLET 100 MG PO (08:01)
[2023-11-02] MEDS: Thiamine HCL 100 MG TABLET PO (08:01)
[2023-11-02] MEDS: rifAXIMin 550 MG TABLET PO (08:01)
[2023-11-02] MEDS: Magnesium Oxide 400 MG TABLET PO (08:08)
[2023-11-02] MEDS: Lactulose 20 GM/30 ML SOLUTION 30 GM PO (08:08)
--- NOTE | 2023-11-02 08:56 | MHC.CM.PN ---
Transport cancelled r/t authorization. [facility] insurance auth for [facility] transport has been approved. Next available is booked 12pm warp picker @ [facility]. New last dose letter sent. Facility notified of transport time.
--- NOTE | 2023-11-02 09:44 | HO.PM.IMPN ---
Subjective Subjective Date of Service: 11/02/23 Interval History: no complaints Physical Exam Vital Signs: Vital Signs: Last Vital Signs Temp 98.1 F 11/02/23 07:24 Pulse 69 11/02/23 07:24 Resp 18 11/02/23 07:24 BP 112/69 11/02/23 08:01 Pulse Ox 95 11/02/23 07:24 O2 Del Method Room Air 11/02/23 07:24 BMI result Body Mass Index 33.3 General: AO X 3, no acute distress Resp: CTA bilateral, no accessory muscles used CVS: S1,S2,RRR GI: soft, non tender, non distended Neuro: motor grossly intact, alert Objective Data Active Medications Acetaminophen (Acetaminophen 325 Mg Tablet) 650 mg PO Q6H PRN PRN Reason: Pain, Mild (Pain Scale 1-3) Last Admin: 11/01/23 17:03 Dose: 650 mg Documented By: BRODIE Docusate Sodium (Docusate Sodium 100 Mg Capsule) 100 mg PO BID PRN PRN Reason: Constipation Folic Acid (Folic Acid 1 Mg Tablet) 1 mg PO DAILY [facility] Last Admin: 11/02/23 08:01 Dose: 1 mg Documented By: BRODIE Furosemide (Furosemide 40 Mg Tablet) 40 mg PO DAILY [facility]; Protocol Last Admin: 11/02/23 08:01 Dose: 40 mg Documented By: BRODIE Lactic Acid (Ammonium Lactate 12 % Lotion 226 Gm Bottle) 1 appl TOPICAL BID [facility]; Protocol Last Admin: 11/02/23 08:11 Dose: Not Given Documented By: BRODIE Non-Admin Reason: Patient Refused Lactulose (Lactulose 20 Gm/30 Ml Solution) 30 gm PO BID [facility] Last Admin: 11/02/23 08:08 Dose: 30 gm Documented By: BRODIE Magnesium Oxide ([facility] 400 Mg Tablet) [facility] Last Admin: 11/02/23 08:08 Dose: 400 mg Documented By: BRODIE Melatonin (Melatonin 3 Mg Tablet) 6 mg PO BEDTIME PRN PRN Reason: Insomnia Last Admin: 11/01/23 21:12 Dose: 6 mg Documented By: ANGIE Methadone HCl (Methadone Hcl 20 Mg/2 Ml Oral.Conc) 40 mg PO DAILY [facility] Last Admin: 11/02/23 08:01 Dose: 40 mg Documented By: BRODIE Omeprazole (Omeprazole 20 Mg Capsule.) 20 mg PO BID@0630,1630 [facility] Last Admin: 11/02/23 05:55 Dose: 20 mg Documented By: ANGIE Ondansetron HCl (Ondansetron Hcl 4 Mg/2 Ml Vial) 4 mg IVPUSH Q8H PRN PRN Reason: Nausea and Vomiting Pharmacy Consult (Consult Rx Etoh Phenob Im/Po) 1 each MISCELLANE ONCE PRN; Protocol PRN Reason: Consult order Phenobarbital (Phenobarbital 15 Mg Tablet) 15 mg PO DAILY [facility] Stop: 11/03/23 09:01 Last Admin: 11/02/23 08:01 Dose: 15 mg Documented By: BRODIE Rifaximin (Rifaximin 550 Mg Tablet) 550 mg PO BID [facility] Last Admin: 11/02/23 08:01 Dose: 550 mg Documented By: BRODIE Sodium Chloride (0.9 % Sodium Chloride Flush 3 Ml Syringe) 3 ml IVFLUSH QSHIFT [facility] Last Admin: 11/02/23 08:03 Dose: Not Given Documented By: BRODIE Non-Admin Reason: No Access Spironolactone (Spironolactone 25 Mg Tablet) 100 mg PO DAILY [facility]; Protocol Last Admin: 11/02/23 08:01 Dose: 100 mg Documented By: BRODIE Sucralfate (Sucralfate Oral Suspension 1 Gm/10 Ml Oral.Susp) 1 gm PO QIDACHS [facility] Last Admin: 11/02/23 08:00 Dose: 1 gm Documented By: BRODIE Thiamine HCl (Thiamine Hcl 100 Mg Tablet) 100 mg PO DAILY [facility] Last Admin: 11/02/23 08:01 Dose: 100 mg Documented By: BRODIE Labs 10/30/23 05:55 10/30/23 05:55 Assessment and Plan (1) Alcohol use disorder: Status: Acute Plan 68M PMH alcoholic cirrhosis, alcohol dependence, hypertension, portal vein thrombosis, polysubstance abuse presented with altered mental status Acute metabolic encephalopathy due to hepatic encephalopathy due to alcoholic cirrhosis (with pancytopenia, varices) back to baseline Lactulose for 2-4 bm/day Rifaximin debility plan for STR Alcohol dependence with withdrawal resolved on Phenobarb Mild rhabdomyolysis Resolved DVT prophylaxis-mechanical due to thrombocytopenia Full code Reason for continued hospitalization: safe disp Quality Stroke Does the patient have a stroke diagnosis?: No VTE Prior VTE?: No VTE Risk Level:: Medical - moderate - high VTE Device Contraindication: N/A - Device Ordered VTE Drug Contraindication: Treatment Not Indicated
== END 2023-11-02 13:54 | disposition skilled nursing facility (03) | DRG 441 ==
LOC: HO.ED 15:46 → HO.EDOVER 17:48 → HO.S3 10-29 19:54
PROVIDERS: Admitting Provider Student in an Organized Health Care Education/Training Program; Emergency Provider Emergency Medicine; Visit Provider Internal Medicine
DX: K76.82 Hepatic encephalopathy (principal); G93.41 Metabolic encephalopathy; M62.82 Rhabdomyolysis; F11.20 Opioid dependence, uncomplicated; D61.818 Other pancytopenia; F10.239 Alcohol dependence with withdrawal, unspecified; I85.10 Secondary esophageal varices without bleeding; K70.30 Alcoholic cirrhosis of liver without ascites; I87.2 Venous insufficiency (chronic) (peripheral); F17.210 Nicotine dependence, cigarettes, uncomplicated; Z71.6 Tobacco abuse counseling; Z20.822 Contact with and (suspected) exposure to COVID-19; Z79.899 Other long term (current) drug therapy
CPT/HCPCS: 0241U; 36415; 70450; 71045; 76705; 80048; 80076; 80307; 81003; 82140; 82550; 83605; 83690; 83735; 83880; 84145; 84484; 85025; 85027; 85610; 86850; 86900; 86901; 87040; 93005; 97162; 99285; J1940; J2560; J3411; J3475

== ENCOUNTER → 2023-10-28 17:45 | Outpatient (BNV) | payer OTHER, SELFPAY | PROVIDERS: Admitting Provider Student in an Organized Health Care Education/Training Program; Emergency Provider Emergency Medicine; Visit Provider Student in an Organized Health Care Education/Training Program | DX: K70.30 Alcoholic cirrhosis of liver without ascites (principal); G93.41 Metabolic encephalopathy; F10.90 Alcohol use, unspecified, uncomplicated | CPT/HCPCS: 99223; 99232; 99233; 99239; 99429 ==

== ENCOUNTER 2023-11-17 15:59 | Emergency (ER) | payer OTHER, SELFPAY ==
[2023-11-17 16:03] VITALS: BP 148/76; PULSE 108; O2SAT 98
--- NOTE | 2023-11-17 16:14 | ED.OVERDOSE ---
HPI - Overdose General Chief Complaint: Overdose Stated Complaint: OPIATE OD, 4MG NARCAN GIVEN Time Seen by Provider: 11/17/23 16:13 Source: patient Mode of arrival: EMS Limitations: no limitations History of Present Illness HPI Narrative: Patient history of opiate abuse been here multiple times used 1 bag of fentanyl around 14:00 was in the gas parking lot semi responsive by stander gave him 4 mg of Narcan intranasally denies depression or SI on methadone he did not take it today Related Data Home Medications ?Medication ?Instructions ?Recorded ?Confirmed furosemide 40 mg tablet 40 mg PO DAILY 08/28/20 10/28/23 docusate sodium 100 mg capsule 100 mg PO BID PRN Constipation 08/08/23 10/28/23 acetaminophen 325 mg tablet 650 mg PO Q6H PRN Pain 10/28/23 10/28/23 Previous Rx's ?Medication ?Instructions ?Recorded folic acid 1 mg tablet 1 mg PO DAILY #30 tabs 07/26/23 spironolactone 100 mg tablet 100 mg PO QAM #30 tabs 07/26/23 thiamine HCl (vitamin B1) 100 mg 100 mg PO DAILY #30 tabs 07/26/23 tablet lactulose 20 gram/30 mL oral 30 g (45 mL) PO TID #1,200 mL 08/14/23 solution methadone 10 mg/mL oral 40 mg (4 mL) PO DAILY #30 mL 08/14/23 concentrate (Methadose) pantoprazole 40 mg tablet,delayed 40 mg PO BID 30 days #60 tabs 08/14/23 release (Protonix) sucralfate 100 mg/mL oral 1 g (10 mL) PO QIDACHS 10 days 08/14/23 suspension #400 mL rifaximin 550 mg tablet (Xifaxan) 550 mg PO BID #0 tabs 11/01/23 Allergies Allergy/AdvReac Type Severity Reaction Status Date / Time No Known Allergies Allergy Verified 11/17/23 17:14 [No Known Allergies*] Review of Systems Review of Systems: Yes all other systems are reviewed and are negative PMFSH Past Medical History Medical History Polysubstance abuse Splenomegaly Pancytopenia Portal vein thrombosis Cirrhosis HTN (hypertension) Surgical History S/P TIPS (transjugular intrahepatic portosystemic shunt) Social History Social History Household Members: Other Housing: Unknown / Unable to assess Do you presently have visiting nurse or other home services: No Unable to assess alcohol history related to: Unable to respond Alcohol intake: never Comment: 1:1 sitter Patient Tobacco Use Status: Current everyday Tobacco user Tobacco use type: Cigarette Cigarettes Per Day: 1 Smoked in Last 30 Days: No e-Cigarette/Vaping Use: Never Used Second Hand Smoke Exposure: No Use of substances other than those prescribed or required for medical reasons: Yes Substance Use Type: Heroin Advance Directives: No Advance Directives Information Provided: No Do you have a plan to hurt others: No Plan service: No Current occupational status: retired Current occupation: rt handed Physical Exam Vital Signs: Vital Signs: Last Vital Signs Temp 98.0 F 11/17/23 18:09 Pulse 72 11/17/23 18:09 Resp 16 11/17/23 18:09 BP 126/62 11/17/23 18:09 Pulse Ox 95 11/17/23 18:09 O2 Del Method Room Air 11/17/23 18:09 BMI result Body Mass Index 33.3 Appearance: Alert. Oriented X3. No acute distress. Eyes: PERRLA, No Nystagmus ENT: Pharynx normal. Oral Mucosa moist atraumatic normocephalic Neck: Normal inspection. Neck supple. CVS: Normal heart rate and rhythm. Pulses normal. Respiratory: No respiratory distress. Equal air entry bilateral, no wheezing/rales/rhonchi Abdomen: Soft and nontender. Bowel sounds are present, no mass palpable, no CVA tenderness Skin: Skin warm and dry. Normal skin color. Normal skin turgor. Extremities: No lower extremity edema. No calf tenderness Neuro: Oriented X 3. No motor deficit. No sensory deficit.No cerebellar signs , cranial nerves II-XII intact Medical Decision Making Medical Decision Making MDM Narrative: Patient with opiate abuse been here multiple times refusing to go to detox denies any depression or SI does have a place to live Patient seen by reading recovery teacher patient refused for any help will discharge patient home, vitals stable Discharge Plan Discharge Clinical Impression: Poisoning by opiate or related narcotic Patient Disposition: Home, Self-Care Instructions: Narcotic Use Disorder (ED) Additional Instructions: Do not use heroin Follow with detox Prescriptions: No Action folic acid 1 mg tablet 1 mg PO DAILY Qty: 30 0RF spironolactone 100 mg tablet 100 mg PO QAM Qty: 30 0RF Hold Instructions: resume as BP allows thiamine HCl (vitamin B1) 100 mg tablet 100 mg PO DAILY Qty: 30 0RF docusate sodium 100 mg Capsule 100 mg PO BID PRN (Reason: Constipation) sucralfate 100 mg/mL Suspension 1 g PO QIDACHS 10 Days Qty: 400 0RF methadone [Methadose] 10 mg/mL Concentrate 40 mg PO DAILY Qty: 30 0RF Rx Instructions: Partial Fill upon patient request. pantoprazole [Protonix] 40 mg tablet,delayed release (DR/EC) 40 mg PO BID 30 Days Qty: 60 0RF lactulose 20 gram/30 mL Solution 30 g PO TID Qty: 1200 0RF acetaminophen 325 mg Tablet 650 mg PO Q6H PRN (Reason: Pain) Xifaxan 550 mg Tablet 550 mg PO BID Qty: 0 0RF furosemide 40 mg tablet 40 mg PO DAILY Interventions: ED Discharge Assessment Last Done: 11/17/23 18:09 Discharge Date/Time: 11/17/23 18:10 Print Language: Bulgarian
[2023-11-17 16:15] VITALS: BMI 33.3
--- NOTE | 2023-11-17 16:41 | MHC.EDTECH ---
PATIENT WAS BIBA FOR OVERDOSED ,PATIENT WAS ASSISTED TO BATHROOM ,PATIENT WAS CHANGE INTO HOSPITAL ATTIRE ,ALL PATIENT BELONGING ARE LOCKED UP IN DECON .
[2023-11-17 16:46] VITALS: BP 123/66; PULSE 95; RESP 16; TEMP 36.8; O2SAT 97
--- NOTE | 2023-11-17 17:27 | MHC.RECOVSUP ---
? Reason for consult recovery support o Current location: [facility] o Identified substance use concern: Opiate - Overdose - Support ? Intervention: <del>o</del> <del>ATS</del> <del>bed</del> <del>search</del> <del>started/completed/in</del> <del>process</del> <del>o</del> <del>MAT</del> <del>started</del> <del>or</del> <del>to</del> <del>be</del> <del>started</del> <del>o</del> <del>Community</del> <del>resources</del> <del>provided</del> <del>o</del> <del>Harm</del> <del>reduction</del> <del>discussion</del> ? Plan: o <del>Referral</del> <del>to</del> <del>[facility]</del> <del>o</del> <del>Bed</del> <del>search</del> <del>in</del> <del>progress</del> <del>to</del> <del>o</del> <del>Follow</del> <del>up</del> <del>tomorrow</del> <del>o</del> <del>Patient</del> <del>awaiting</del> <del>crisis</del> <del>evaluation</del> <del>o</del> <del>Patient</del> <del>to</del> <del>follow</del> <del>up</del> <del>with</del> <del>[facility]</del> <del>after</del> <del>discharge</del> ? Additional information: Spoke with patient and he did not want any services
--- OUTSIDE RECORDS SUMMARY | 2023-11-17 17:29 | XMS_ITS | Patient Health Record ---
Author Organization [facility] Address [address] [place] [address] Care Team Providers Care Unit Secretary Name Role Phone Alvarolaly Michelle Primary Care Provider Unavailab Jose Antonio Koehler Unavailable [phone] Alyse Wells Unavailable Unavailable ALLERGIES No Known Allergies REASON FOR REFERRAL No Information MEDICATIONS Medication SIG (Take, Route, Frequency, Duration) Notes Start Date End Date Status Pantoprazole Sodium 40 MG 1 tablet Orall y Twice a day Active Torsemide 20 MG TAKE 1 TABLET BY WILLI TH EVERY DAY Oral for 90 Active Spironolactone 100 MG 1 tablet Orally On ce a day Active Furosemide 40 MG 1 tablet Orally Twic e a day Active rifAXIMin 550 MG 1 tablet Orally Twic e a day Active Lactulose 20 GM/30ML 15 ml Orally three times a day Active Cyclobenzaprine HCl 10 MG 1 tablet as ne eded Orally at bedtime prn muscle spasms Active Methadone HCl 60 Act brian Warfarin Sodium 2.5 MG 1 tablet Orally O nce a day Not-Taking Xifaxan 550 MG 1 tablet Oral Twice a day Active Klor-Con M20 20 MEQ 1 tablet with food Orally Once a day Active IMMUNIZATIONS Vaccine Route Administration Date Status Comme nts Influenza Unknown 03/05/2021 Administered SOCIAL HISTORY Tobacco Use: Social History Observation Description Date Details (start date - stop date) Current Smoker NA - NA Sex Assigned At : Social History Observation Description Sex Assigned At Unknown Tobacco Use/Smoking Question Answer Notes Patient is a current smoker How often do you smoke cigarettes? every day How many cigarettes a day do you smoke? 5 or les s PROBLEMS Problem Type ICD Code Onset Dates Problem Status W/U Status Risk SNOMED Code Notes Problem Chronic hepatitis C without hepatic coma (B18.2) Active confirmed 832311577 Problem Alcoholic cirrhosis of liver without ascites (K70.30) Active confirmed 909333223 Problem Gastric varices (I86.4) Active confirmed 03633348 Problem Esophageal varices without bleeding (I85.00) Active confirmed 568774969 Problem Other cirrhosis of liver (K74.69) Active confirmed 66901933 Problem 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) Active confirmed 137591829 Encounters Encounter Location Date Provider Diagnosis [facility] [address] [place] [address] 07/16/2023 Jose Antonio Crawley [facility] [address] [place] [address] 07/15/2023 Jose Antonio Crawley PLAN OF TREATMENT Pending Test Test Name Order Date CHEM 7 PROFILE 09/24/2021 CHEM 7 PROFILE 04/01/2022 LIVER PROFILE 12/26/2015 LIVER PROFILE 09/25/2015 LIVER PROFILE 11/14/2015 LIVER PROFILE 09/24/2021 LIVER PROFILE 10/23/2015 LIVER PROFILE 04/01/2022 CBC w DIFF 09/25/2015 CBC w DIFF 11/14/2015 CBC w DIFF 09/24/2021 CBC w DIFF 10/23/2015 CBC w DIFF 04/01/2022 ALPHA-FETOPROTEIN,TUMOR MARKER HEPATITIS C VIRAL LOAD 10/23/2015 HEPATITIS C VIRAL LOAD 12/26/2015 HEPATITIS C VIRAL LOAD 09/25/2015 HEPATITIS C VIRAL LOAD 11/14/2015 CT COLON SCREENING NO CONTRAST 6 US ABD 09/24/2021 Prothrombin Time INR 04/01/2022 Ammonia 09/24/2021 Ammonia 04/01/2022 Alpha Fetoprotein 09/24/2021 US abdomen complete 04/01/2022 Insurance Providers Payer Name Payer Address Payer Phone Subscriber Number Group Number Insured Name Patient Relationship to Insured Coverage Start Date Coverage End Date [facility] [address] [address] [place] [address] [phone] [id number] MERLIN REZA Self - patient is the insured MEDICAID OF [facility] [employer] [address] [place] [address] [phone] [id number] MERLIN REZA Self - patient is the insured MEDICAL (GENERAL) HISTORY Medical History History ICD Code Chronic hepatitis C and cirr britney--Genotye 1b- he was treated with several months of non-pegylated interferon and ribavirin in 2000, but he subsequently stopped that on his own and we were never able to see whether or not he had a response to it; partial portal vein thrombosis-CT scan was negative for any mass--admitted to [facility] early 07/2015 for an UGI bleed due to gastric varices--could not control endoscopically and was transferred to [facility]--TIPS was unsuccessful due to the partial portal vein thrombosis---varices were treated with a Balloon-occluded Retrograde Transvenous Obliteration(BRTO) by the IR department at [facility]--transferred to [facility] rehab 07/18/15 and D/C'd to home on approx. 08/07/15. He has been treated with 12 weeks of Harvoni for the Hepatitis C through the end of December,---nondetectable Hepatitis C viral load in 04/2016 and normal LFT's. He is being evaluated at [facility] Liver Transplant Dept and is on the transplant list. Hx of intravenous drug use a nd alcohol abuse--abstinenet since 2011--on Methadone Hypertension Denies CA,DM,CVA,Lung disease,renal dise ase Colonoscopy--malignant colon polyp--- removed in October 2015--this was an adenomatous polyp on a stalk with a focus of high-grade dysplasia and intramucosal adenocarcinoma that was felt to be completely removed at that time--- I could not assess the ascending colon and cecum despite 2 different attempts at colonoscopy, and a followup CT colonography was negative for any other lesions, although it was not an ideal exam due to the poor prep Gallstones-asympptomatic--he and his fam edward are aware Partial small bowel obstruct ion at the end of February,, in relation to his ventral abdominal wall hernia--this resolved without surgery 12/2016 small bowel obstruction treated n onsurgically at [facility] Upper GI bleed treated with a TIPS at [facility] in December 2016--he was also started on Coumadin in regard to DVTs and pulmonary emboli. He was dismissed from the tr ansplant program in December of 2020 due to continued substance abuse issues. Surgical History Surgery Date(Month/Year) Umbilical hernia TIPS
[2023-11-17 17:45] VITALS: BP 126/62; PULSE 72; RESP 16; TEMP 36.7; O2SAT 95
[2023-11-17 18:09] VITALS: BP 126/62; PULSE 72; RESP 16; TEMP 36.7; O2SAT 95
== END 2023-11-17 18:10 | disposition home or self-care (01) ==
PROVIDERS: Emergency Provider Internal Medicine
DX: T40.601A Poisoning by unspecified narcotics, accidental (unintentional), initial encounter (principal); R40.4 Transient alteration of awareness; Y92.9 Unspecified place or not applicable; F11.10 Opioid abuse, uncomplicated; I10 Essential (primary) hypertension
CPT/HCPCS: 99285

== ENCOUNTER 2023-12-16 22:52 | Emergency (ER) | payer OTHER, SELFPAY ==
--- NOTE | ~2023-12-16 | XR_ITS ---
EXAMINATION: XR LUMBOSACRAL SPINE CLINICAL INFORMATION: Trauma. COMPARISON: Correlation made with CT of the abdomen and pelvis including imaging through the lumbar spine TECHNIQUE: Three views of the lumbosacral spine. FINDINGS: There is again seen grade 1 anterolisthesis L5 over S1 with L5 spondylolysis as seen on prior CT. The alignment is otherwise within normal limits. There is diffuse thoracolumbar disc degenerative change moderate at L5-S1 and mild at the remaining levels with loss of disc space, endplate change and osteophyte formation. There is mild loss of height of the L1 vertebral body. There is vertebral body heights are otherwise maintained. There is mild lower lumbar facet degenerative change. There is atherosclerotic plaque of the abdominal aorta. XR/XR lumbar spine 2-3V IMPRESSION: Grade 1 anterolisthesis L5 over S1 with L5 spondylolysis as seen on prior CT. Multilevel degenerative change. Mild loss of height of the L1 vertebral body. This was not seen on prior CT and could be acute.
[2023-12-16 22:57] VITALS: BP 114/76; BP 138/82; PULSE 128; PULSE 75; RESP 20; TEMP 37.1; O2SAT 95; O2SAT 99; BMI 33.3
--- OUTSIDE RECORDS SUMMARY | 2023-12-16 23:14 | XMS_ITS | Patient Health Record ---
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 Name Role Phone Alvarolaly Michelle Primary Care Provider Unavailab Jose Antonio Koehler Unavailable [phone] Alyse Wells Unavailable Unavailable ALLERGIES No Known [...] C without hepatic coma (B18.2) Active confirmed 691344566 Problem Alcoholic cirrhosis of liver without ascites (K70.30) Active confirmed 479345992 Problem Gastric varices (I86.4) Active confirmed 03795090 Problem Esophageal varices without bleeding (I85.00) Active confirmed 819935422 Problem Other cirrhosis of liver (K74.69) Active confirmed 89135771 Problem 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) Active confirmed 044911168 Encounters Encounter Location Date Provider Diagnosis [facility] [address] [place] [address] 07/16/2023 Jose Antonio Crawley [facility] [address] [place] [address] 07/15/2023 Jose Antonio Crawley PLAN OF TREATMENT [...] Insured Coverage Start Date Coverage End Date [facility] [address] [address] [place] [address] [id number] MERLIN REZA Self - patient is the insured MEDICAID OF [facility] [employer] [address] [place] [address] [phone] [id number] MERLIN REZA Self - patient is the [...] scan was negative for any mass--admitted to [facility] early 07/2015 for an UGI bleed due to gastric varices--could not control endoscopically and was transferred to [facility]--TIPS was unsuccessful due to the partial portal vein thrombosis---varices were treated with a Balloon-occluded Retrograde Transvenous Obliteration(BRTO) by the IR department at [facility]--transferred to [facility] rehab 07/18/15 and D/C'd to home on approx. 08/07/15. He has been treated with 12 weeks of Harvoni for the Hepatitis C through the end of December,---nondetectable Hepatitis C viral load in 04/2016 and normal LFT's. He is being evaluated at [facility] Liver [facility]plant Dept and is on the transplant list. Hx of intravenous drug use a nd alcohol abuse--abstinenet since 2011--on Methadone Hypertension Denies ME,DM,CVA,Lung disease,renal dise ase Colonoscopy--malignant colon polyp--- removed [...] small bowel obstruction treated n onsurgically at [facility] Upper GI bleed treated with a TIPS at [facility] in December 2016--he was also started on Coumadin in regard to DVTs and pulmonary emboli. He was dismissed from the tr ansplant program in December of 2020 due to continued substance abuse issues. Surgical History Surgery Date(Month/Year) Umbilical hernia TIPS
--- NOTE | 2023-12-16 23:38 | ED.BACK ---
HPI - Back Pain/Injury General Chief Complaint: Back Pain/Injury Stated Complaint: low back pain since wednesday Time Seen by Provider: 12/16/23 23:18 Source: patient Mode of arrival: EMS Limitations: other (Intoxicated) History of Present Illness ED Provider: Denys ELDER Narrative: 68-year-old male with history of polysubstance abuse, alcohol abuse presents with low back pain times 2-1/2 days. Patient states he rolled out of bed 2 and half days ago, he has had ongoing low back pain. Pain worse with ambulation. Patient having difficulty getting comfortable. Patient denies radiation of pain down either lower extremity, weakness of lower extremities, paresthesia, bowel incontinence, or urinary retention. Related Data Home Medications ?Medication ?Instructions ?Recorded ?Confirmed furosemide 40 mg tablet 40 mg PO DAILY 08/28/20 10/28/23 docusate sodium 100 mg capsule 100 mg PO BID PRN Constipation 08/08/23 10/28/23 acetaminophen 325 mg tablet 650 mg PO Q6H PRN Pain 10/28/23 10/28/23 Previous Rx's ?Medication ?Instructions ?Recorded folic acid 1 mg tablet 1 mg PO DAILY #30 tabs 07/26/23 spironolactone 100 mg tablet 100 mg PO QAM #30 tabs 07/26/23 thiamine HCl (vitamin B1) 100 mg 100 mg PO DAILY #30 tabs 07/26/23 tablet lactulose 20 gram/30 mL oral 30 g (45 mL) PO TID #1,200 mL 08/14/23 solution methadone 10 mg/mL oral 40 mg (4 mL) PO DAILY #30 mL 08/14/23 concentrate (Methadose) pantoprazole 40 mg tablet,delayed 40 mg PO BID 30 days #60 tabs 08/14/23 release (Protonix) sucralfate 100 mg/mL oral 1 g (10 mL) PO QIDACHS 10 days 08/14/23 suspension #400 mL rifaximin 550 mg tablet (Xifaxan) 550 mg PO BID #0 tabs 11/01/23 Allergies Allergy/AdvReac Type Severity Reaction Status Date / Time No Known Allergies Allergy Verified 12/16/23 23:01 [No Known Allergies*] Review of Systems Constitutional: Constitutional: Denies fever(s) Musculoskeletal: Musculoskeletal: Reports back pain, Denies numbness and Denies tingling Neurologic: Denies focal weakness, Denies numbness, Denies tingling and Denies paresthesias [facility] Past Medical History Attestation statement: The following information was validated with the patient. Medical History Polysubstance abuse Splenomegaly Pancytopenia Portal vein thrombosis Cirrhosis HTN (hypertension) Surgical History S/P TIPS (transjugular intrahepatic portosystemic shunt) Social History Social History Household Members: Other Housing: Unknown / Unable to assess Do you presently have visiting nurse or other home services: No Unable to assess alcohol history related to: Unable to respond Alcohol intake: never Comment: 1:1 sitter Patient Tobacco Use Status: Current everyday Tobacco user Tobacco use type: Cigarette Cigarettes Per Day: 1 e-Cigarette/Vaping Use: Never Used Second Hand Smoke Exposure: No Substance Use Type: Heroin Advance Directives: No Advance Directives Information Provided: Yes service: No Current occupational status: retired Current occupation: rt handed Physical Exam Vital Signs: Vital Signs: Last Vital Signs Temp 98.7 F 12/16/23 22:57 Pulse 75 12/16/23 22:57 Resp 20 12/16/23 22:57 BP 114/76 12/16/23 22:57 Pulse Ox 95 12/16/23 22:57 O2 Del Method Room Air 12/16/23 22:57 BMI result Body Mass Index 33.3 Const: Other: Alert, appears disheveled HEENT: Other: Alcohol halitosis Eyes: Pupils: Equal, round and reactive pupils present EOM: EOMs intact bilaterally Back/Spine/Pelvis: Other: Pain over lumbar region, and left paraspinous distribution. Some midline tenderness, no palpable step-offs, patient able to perform forward bend to some degree Skin: Other: No rash Neuro: Other: Alert and oriented x3 Cranial nerves: Yes Equal, round and reactive pupils present Extrem: Other: Patient able to stand, has antalgic gait, Psych: Other: Cooperative Medical Decision Making Medical Decision Making MDM Narrative: 68-year-old male with history of polysubstance abuse, alcohol abuse presents with low back pain times 2-1/2 days. Patient states he rolled out of bed 2 and half days ago, he has had ongoing low back pain. Pain worse with ambulation. Patient having difficulty getting comfortable. Patient denies radiation of pain down either lower extremity, weakness of lower extremities, paresthesia, bowel incontinence, or urinary retention. Problem: Polysubstance abuse alcohol abuse History: Per patient I have considered the following differential diagnoses: Alcohol intoxication, compression fracture, contusion, lumbar radiculopathy, cauda equina Plan: We will obtain x-rays of the lumbar spine, we will screen labs including an ethanol in the event that he actually sustained an injury and requires intervention. To note he has no red flag signs symptoms concerning for cord compression. He also has no radicular symptoms. I have independently reviewed the following tests: Labs: Pancytopenia, no electrolyte abnormality, ethanol pending X-ray lumbar spine: No compression fracture,arthritic changes noted Differential Diagnosis Differential Diagnoses: The differential diagnosis associated with the presentation includes Alcohol intoxication, compression fracture, contusion, lumbar radiculopathy, cauda equina Lab Data 12/17/23 01:38 12/16/23 23:43 Labs: Lab Results 12/16/23 12/17/23 Range/Units 23:43 01:38 WBC 2.8 L (4.8-10.8) X10*3/uL RBC 4.03 L (4.60-5.80) X10*6/uL Hgb 12.7 L (14.0-18.0) g/dl Hct 36.0 L (42.0-52.0) % MCV 89.3 (80.0-98.0) fL MCH 31.5 (27.0-33.0) pg MCHC 35.3 (31.0-36.0) g/dl RDW 15.4 (11.0-16.0) % Plt Count 77 L (160-400) X10*3/uL MPV 10.0 (9.4-12.4) fL Immature Gran % (Auto) 0.4 (0.0-0.4) % Neut % (Auto) 65.7 (45-73) % Lymph % (Auto) 19.1 L (20-40) % [place] % (Auto) 8.7 (2-11) % Eos % (Auto) 4.7 H (0-4) % Baso % (Auto) 1.4 (0-2) % Lymph # (Auto) 0.5 L (1.2-4.9) X10*3/uL [place] # (Auto) 0.2 (0.1-1.2) X10*3/uL Eos # (Auto) 0.1 (0.0-0.4) X10*3/uL Baso # (Auto) 0.0 (0.0-0.2) X10*3/uL Abs Immat Gran (auto) 0.01 (0.00-0.03) X10*3/uL Absolute Neuts (auto) 1.8 L (2.0-8.3) x10*3/uL Absolute Nucleated RBC 0.000 (0.0-0.012) X10*3/uL Nucleated RBC % (auto) 0.0 (0.0-0.2) /100WBC Sodium 140 (135-145) mmol/L Potassium 4.0 (3.3-5.1) mmol/L Chloride 107 (96-108) mmol/L Carbon Dioxide 27 (22-29) mmol/L Anion Gap 10 L (12-20) BUN 9 (9-16) mg/dL Creatinine 0.82 (0.5-1.4) mg/dL Estim Creat Clear Calc 93.5 Estimated GFR > 60 Random Glucose 122 H (60-115) mg/dL Calcium 8.9 (8.4-10.2) mg/dL Discharge Plan Discharge Clinical Impression: Lumbosacral strain Patient Disposition: Home, Self-Care Instructions: Acute Low Back Pain (ED) Additional Instructions: X-rays were obtained of your back, there is no fracture, you do have arthritic changes. See home care instructions. You can use [id number] Tylenol 1000 mg taken every 8 hours as needed for pain, you can alternate this medication with [id number] ibuprofen 600 mg taken every 6 hours with food. Follow up with your primary care provider as needed. Prescriptions: No Action folic acid 1 mg tablet 1 mg PO DAILY Qty: 30 0RF spironolactone 100 mg tablet 100 mg PO QAM Qty: 30 0RF Hold Instructions: resume as BP allows thiamine HCl (vitamin B1) 100 mg tablet 100 mg PO DAILY Qty: 30 0RF docusate sodium 100 mg Capsule 100 mg PO BID PRN (Reason: Constipation) sucralfate 100 mg/mL Suspension 1 g PO QIDACHS 10 Days Qty: 400 0RF methadone [Methadose] 10 mg/mL Concentrate 40 mg PO DAILY Qty: 30 0RF Rx Instructions: Partial Fill upon patient request. pantoprazole [Protonix] 40 mg tablet,delayed release (DR/EC) 40 mg PO BID 30 Days Qty: 60 0RF lactulose 20 gram/30 mL Solution 30 g PO TID Qty: 1200 0RF acetaminophen 325 mg Tablet 650 mg PO Q6H PRN (Reason: Pain) Xifaxan 550 mg Tablet 550 mg PO BID Qty: 0 0RF furosemide 40 mg tablet 40 mg PO DAILY Print Language: British
[2023-12-17 00:07] LABS: Anion Gap 10 (12-20); Blood Urea Nitrogen 9 mg/dL (9-16); Calcium 8.9 mg/dL (8.4-10.2); Carbon Dioxide 27 mmol/L (22-29); Chloride 107 mmol/L (96-108); Creatinine Clr Calc Pharmacy 93.5; Estimated Glomerular Filt Rate > 60; Glucose Random 122 mg/dL (60-115); Sodium 140 mmol/L (135-145)
[2023-12-17 01:41] LABS: MANUAL DIFF FLAG NO
[2023-12-17 01:43] LABS: Basophils Percent Auto 1.4 % (0-2); Eosinophils Absolute Auto 0.1 X10*3/uL (0.0-0.4); Eosinophils Percent Auto 4.7 % (0-4); Hemoglobin 12.7 g/dl (14.0-18.0); Imm Gran Abs Auto 0.01 X10*3/uL (0.00-0.03); Imm Gran Pct Auto 0.4 % (0.0-0.4); Lymphocytes Absolute Auto 0.5 X10*3/uL (1.2-4.9); Lymphocytes Percent Auto 19.1 % (20-40); Mean Corpuscular HGB Conc 35.3 g/dl (31.0-36.0); Mean Corpuscular Hemoglobin 31.5 pg (27.0-33.0); Mean Corpuscular Volume 89.3 fL (80.0-98.0); Monocytes Absolute Auto 0.2 X10*3/uL (0.1-1.2); Monocytes Percent Auto 8.7 % (2-11); Neutrophils Absolute Auto 1.8 x10*3/uL (2.0-8.3); Neutrophils Percent Auto 65.7 % (45-73); Red Blood Count 4.03 X10*6/uL (4.60-5.80); Red Cell Distribution Width 15.4 % (11.0-16.0); White Blood Count 2.8 X10*3/uL (4.8-10.8)
[2023-12-17 01:46] LABS: Platelet Count 77 X10*3/uL (160-400)
[2023-12-17 02:03] LABS: Alanine Aminotransferase 18 U/L (0-40); Albumin Level 3.1 g/dL (3.5-5.0); Alkaline Phosphatase 108 U/L (39-117); Anion Gap 9 (12-20); Aspartate Amino Transferase 30 U/L (5-37); Bilirubin Total 1.4 mg/dL (0.0-1.0); Blood Urea Nitrogen 9 mg/dL (9-16); Calcium 9.3 mg/dL (8.4-10.2); Carbon Dioxide 27 mmol/L (22-29); Chloride 107 mmol/L (96-108); Creatinine Clr Calc Pharmacy 98.3; Estimated Glomerular Filt Rate > 60; Ethanol < 10 mg/dL; Glucose Random 130 mg/dL (60-115); Magnesium 1.8 mg/dL (1.6-2.6); Potassium 4.3 mmol/L (3.3-5.1); Sodium 139 mmol/L (135-145); Total Protein 6.8 g/dL (6.5-8.0)
[2023-12-17 02:23] VITALS: BP 139/83; PULSE 80; RESP 20; TEMP 36.7; O2SAT 94
[2023-12-17] MEDS: Acetaminophen 325 MG TABLET 975 MG PO (02:26)
[2023-12-17] MEDS: Ibuprofen 600 MG TABLET PO (02:26)
[2023-12-17 02:40] VITALS: BP 139/83; PULSE 80; RESP 20; TEMP 36.7; O2SAT 94
== END 2023-12-17 02:53 | disposition home or self-care (01) ==
PROVIDERS: Physician Assistant Medical; Emergency Provider Internal Medicine
DX: S39.012A Strain of muscle, fascia and tendon of lower back, initial encounter (principal); I10 Essential (primary) hypertension; X50.1XXA Overexertion from prolonged static or awkward postures, initial encounter; Y93.9 Activity, unspecified; Y92.9 Unspecified place or not applicable; Y99.9 Unspecified external cause status
CPT/HCPCS: 36415; 72100; 80048; 80053; 80307; 83735; 85025; 99284

== ENCOUNTER 2023-12-24 11:58 | Emergency (ER) | payer OTHER, SELFPAY ==
--- NOTE | ~2023-12-24 | XR_ITS ---
EXAMINATION: XR FOREARM, RIGHT CLINICAL INFORMATION: Fall. Ecchymosis. COMPARISON: Right wrist May 27, 2021 TECHNIQUE: AP and lateral views of the right forearm were obtained. FINDINGS: No acute fracture of the radius or ulna. Old healed fracture of the distal radius. There is a nonunited ulnar styloid which is chronic. Subchondral cystic and sclerotic changes of the distal radius at the radial carpal joint, posttraumatic degenerative changes. Elbow is normal. XR/XR forearm RT 2V IMPRESSION: 1. No acute abnormality of the radius or ulna. 2. Chronic nonunited ulnar styloid fracture.
--- NOTE | ~2023-12-24 | XR_ITS ---
EXAMINATION: XR FOREARM, LEFT CLINICAL INFORMATION: Ecchymosis. COMPARISON: None available. TECHNIQUE: AP and lateral views of the left forearm were obtained. FINDINGS: The bones and soft tissues are normal. No fracture. Imaged portions of the elbow and wrist are unremarkable. XR/XR forearm LT 2V IMPRESSION: Normal left forearm.
--- NOTE | ~2023-12-24 | CT_ITS ---
EXAMINATION: CT ABDOMEN AND PELVIS WITH CONTRAST CLINICAL INFORMATION: Back pain. Fall. Patient on blood thinning medicine. Rule out bleed. COMPARISON: Previous abdominal and pelvic CT August 2023 and abdominal ultrasound October 2023 TECHNIQUE: Multidetector volumetric images were obtained from the superior aspect of the liver through the pubic symphysis following administration 85 mL of Omnipaque 350 intravenous contrast. Sagittal and coronal reformatted images were obtained on the technologist's workstation. Oral contrast: Yes This CT examination was performed using dose optimization techniques as appropriate, variously including the following: *Automated exposure control *Adjustment of mA and/or kV according to patient size (this includes techniques or standardized protocols for targeted exams where dose is matched to indication/reason for exam; i.e. extremities or head) *Use of iterative reconstruction technique DLP: 632 mGy-cm FINDINGS: LIVER, GALLBLADDER, AND BILIARY TREE: Cirrhotic appearing liver. Tips shunt from the right hepatic vein to the right portal vein. The tip of the shunt is in the main portal vein. No focal liver lesion seen. 2 plastic biliary stents, one of which appears to be in the gallbladder. No biliary duct dilatation. Gallbladder appears contracted. There are gallstones. No focal liver lesion seen. PANCREAS: Unremarkable. SPLEEN: Embolization coils in the spleen. The spleen is enlarged measuring 15 cm in length. ADRENAL GLANDS: Unremarkable. KIDNEYS AND URETERS: The kidneys are normal in size, shape, and attenuation. No hydronephrosis, hydroureter area bilateral renal cysts. 2 small nonobstructing left lower pole renal stones. I lateral small low-attenuation renal lesions probably representing cysts. No imaging follow-up recommended. No perinephric stranding. BLADDER: Unremarkable. GASTROINTESTINAL TRACT: High attenuation linear radiopaque density in the proximal right colon for example coronal reconstructed image 50 questionable for foreign body. No adjacent bowel wall thickening or inflammatory changes. Large stool burden. Small and large bowel otherwise normal. No ascites or free air. ABDOMINAL WALL: Postsurgical changes to the anterior abdominal wall. No hernia. LYMPH NODES: Normal. VASCULAR: Large upper abdominal varices. The splenic vein and main portal vein are enlarged. The TIPS shunt appears patent. Mild atherosclerotic disease. The abdominal aorta is normal in caliber. No ascites. PELVIC VISCERA: Unremarkable. OSSEOUS STRUCTURES: Acute appearing mild compression fracture of the superior endplate of the L1 vertebral body. Fractures of the left L2, L3 and L4 transverse processes. Spondylolysis, grade 1 spondylolisthesis and degenerative disc disease at L5-S1. Degenerative changes of the spine and hip joints. CT/CT abdomen pelvis w IV con IMPRESSION: 1. Acute appearing mild compression fracture of the superior endplate of the L1 vertebral body. Fractures of the left L2, L3 and L4 transverse processes. 2. Cirrhotic appearing liver. TIPS shunt. Enlarged spleen and upper abdominal varices. No ascites. 2 plastic biliary stents. Gallstones. No biliary duct dilatation. 3. Question foreign body in the proximal right colon, linear and very dense, question grill brush fragment. No surrounding inflammatory changes. Large stool burden. 4. No evidence of hemorrhage. 5. Small nonobstructing left renal stones. Fleischner guidelines were followed.
--- NOTE | ~2023-12-24 | CT_ITS ---
EXAMINATION: CT CHEST WITH CONTRAST CLINICAL INFORMATION: Fall. Patient on blood thinning medicine. COMPARISON: Previous chest x-ray most recent October 2023 and chest CTA October 2019 TECHNIQUE: Multidetector volumetric CT imaging of the chest was obtained after the administration of 85 mL of Omnipaque 350 intravenous contrast without immediate adverse reactions. Axial MIP volume rendering provided. Sagittal and coronal reformatted images were obtained. This CT examination was performed using dose optimization techniques as appropriate, variously including the following: *Automated exposure control *Adjustment of mA and/or kV according to patient size (this includes techniques or standardized protocols for targeted exams where dose is matched to indication/reason for exam; i.e. extremities or head) *Use of iterative reconstruction technique DLP: 632 mGy-cm FINDINGS: LUNGS: Mild paraseptal emphysema. Millimeter calcified right lower lobe nodule axial image 351 series 7 probably representing a calcified granuloma. MEDIASTINUM: Normal heart size. No pericardial effusion. Normal caliber thoracic aorta. No adenopathy. PLEURA: There is no pleural effusion. No pneumothorax. No pleural mass or thickening. AXILLA: No lymphadenopathy. Bilateral gynecomastia. UPPER ABDOMEN: See abdominal and pelvic CT from the same day. OSSEOUS STRUCTURES: Acute L1 compression fracture of the superior endplate, mild. Degenerative changes of the spine. CT/CT chest w IV con IMPRESSION: No evidence for acute disease in the chest. L1 vertebral body compression fracture. Fleischner guidelines were followed.
--- NOTE | ~2023-12-24 | CT_ITS ---
EXAMINATION: CT HEAD WITHOUT CONTRAST CLINICAL INFORMATION: Recurrent falls COMPARISON: Previous head CT most recent October 2023 TECHNIQUE: Contiguous axial imaging was performed from the skull base to vertex without intravenous administration of contrast. This CT examination was performed using dose optimization techniques as appropriate, variously including the following: *Automated exposure control *Adjustment of mA and/or kV according to patient size (this includes techniques or standardized protocols for targeted exams where dose is matched to indication/reason for exam; i.e. extremities or head) *Use of iterative reconstruction technique DLP: 747 mGy-cm FINDINGS: There is no evidence of an extra-axial collection. There is no evidence of intra or extra-axial hemorrhage. The ventricles and extra-axial CSF spaces are prominent suggestive of generalized atrophy. There is nonspecific periventricular white matter disease. No mass, mass effect or infarct. No skull fracture. Visualized sinuses mastoid air cells and middle ears are clear. CT/CT head/brain wo IV con IMPRESSION: No acute findings. Mild generalized atrophy and nonspecific periventricular white matter disease.
--- NOTE | ~2023-12-24 | CT_ITS ---
EXAMINATION: CT CERVICAL SPINE WITHOUT CONTRAST CLINICAL INFORMATION: Fall. Patient on blood thinning medicine. COMPARISON: Previous cervical spine CT from 2020 TECHNIQUE: Axial images through the cervical spine without contrast. Sagittal and coronal reconstructions. This CT examination was performed using dose optimization techniques as appropriate, variously including the following: *Automated exposure control *Adjustment of mA and/or kV according to patient size (this includes techniques or standardized protocols for targeted exams where dose is matched to indication/reason for exam; i.e. extremities or head) *Use of iterative reconstruction technique DLP: 374 mGy-cm FINDINGS: Curvature of the lower cervical and upper thoracic spine to the right. Bone alignment is otherwise normal. No fracture or dislocation. Multilevel degenerative spondylosis and degenerative disc disease from C2-C3 to T1-2 greatest at C3-4 C4-5 and C5 C6-7. Prevertebral soft tissues are normal. There is bilateral carotid calcification. There are emphysematous changes at the lung apices. CT/CT cervical spine wo IV con IMPRESSION: Degenerative changes. No fracture or dislocation. Fleischner guidelines were followed.
[2023-12-24 12:07] VITALS: BP 110/57; BP 118/72; PULSE 120; PULSE 80; RESP 18; TEMP 36.8; O2SAT 94; O2SAT 97; BMI 36.1
[2023-12-24 12:34] VITALS: BP 116/66; PULSE 83; RESP 12; TEMP 36.8; O2SAT 95
--- NOTE | 2023-12-24 12:37 | ECG_ITS ---
Test Reason : RECURRENT FALLS Blood Pressure : / mmHG Vent. Rate : 072 BPM Atrial Rate : 072 BPM P-R Int : 146 ms QRS Dur : 110 ms QT Int : 396 ms P-R-T Axes : 057 -48 012 degrees QTc Int : 433 ms Normal sinus rhythm Incomplete right bundle branch block Left anterior fascicular block Abnormal ECG When compared with ECG of 28-OCT-2023 15:01, QT has shortened Referred By: Cliff Terry Electronically Signed By:Foreign Kaiser
[2023-12-24 13:12] LABS: MANUAL DIFF FLAG NO
[2023-12-24 13:14] LABS: Basophils Percent Auto 1.8 % (0-2); Eosinophils Percent Auto 4.2 % (0-4); Hematocrit 35.4 % (42.0-52.0); Hemoglobin 12.4 g/dl (14.0-18.0); Imm Gran Abs Auto 0.01 X10*3/uL (0.00-0.03); Imm Gran Pct Auto 0.3 % (0.0-0.4); Mean Corpuscular Hemoglobin 31.6 pg (27.0-33.0); Mean Corpuscular Volume 90.3 fL (80.0-98.0); Mean Platelet Volume 9.5 fL (9.4-12.4); Monocytes Percent Auto 8.8 % (2-11); Neutrophils Absolute Auto 2.1 x10*3/uL (2.0-8.3); Neutrophils Percent Auto 64.9 % (45-73); Platelet Count 100 X10*3/uL (160-400); Red Blood Count 3.92 X10*6/uL (4.60-5.80); Red Cell Distribution Width 15.5 % (11.0-16.0); White Blood Count 3.3 X10*3/uL (4.8-10.8)
[2023-12-24 13:15] LABS: Basophils Absolute Auto 0.1 X10*3/uL (0.0-0.2); Eosinophils Absolute Auto 0.1 X10*3/uL (0.0-0.4); Lymphocytes Absolute Auto 0.7 X10*3/uL (1.2-4.9); Monocytes Absolute Auto 0.3 X10*3/uL (0.1-1.2)
--- NOTE | 2023-12-24 13:19 | ED.GENADULT ---
HPI - General Adult General Chief complaint: Fall Stated complaint: increased fall and decreased mobility Time Seen by Provider: 12/24/23 12:03 Source: patient Mode of arrival: ambulatory Limitations: no limitations History of Present Illness ED Provider: Cliff MCLEOD HPI narrative: 68-year-old male past medical history of GI bleed, alcohol abuse, polysubstance abuse, portal vein thrombosis, on blood thinners presents to the ED for recurrent falls and generalized weakness. Patient admits to still doing drugs and drinking alcohol while falling. Patient would like long-term care because he can not care for himself. She denies any chest pain, shortness of breath, abdominal pain, headache, or pain in extremities. Patient states bilateral forearm ecchymosis is chronic for couple of months ago. Patient admits to drinking this morning Related Data Home Medications ?Medication ?Instructions ?Recorded ?Confirmed furosemide 40 mg tablet 40 mg PO DAILY 08/28/20 12/25/23 docusate sodium 100 mg capsule 100 mg PO BID Constipation 08/08/23 12/25/23 acetaminophen 325 mg tablet 650 mg PO Q6H PRN Pain 10/28/23 12/25/23 spironolactone 100 mg tablet 100 mg PO BID 12/25/23 12/25/23 Previous Rx's ?Medication ?Instructions ?Recorded folic acid 1 mg tablet 1 mg PO DAILY #30 tabs 07/26/23 thiamine HCl (vitamin B1) 100 mg 100 mg PO DAILY #30 tabs 07/26/23 tablet lactulose 20 gram/30 mL oral 30 g (45 mL) PO TID #1,200 mL 08/14/23 solution methadone 10 mg/mL oral 40 mg (4 mL) PO DAILY #30 mL 08/14/23 concentrate (Methadose) pantoprazole 40 mg tablet,delayed 40 mg PO BID 30 days #60 tabs 08/14/23 release (Protonix) Allergies Allergy/AdvReac Type Severity Reaction Status Date / Time No Known Allergies Allergy Verified 12/24/23 12:09 [No Known Allergies*] Review of Systems Review of Systems: Recurrent falls Yes all other systems are reviewed and are negative PMFSH Past Medical History Medical History Polysubstance abuse Splenomegaly Pancytopenia Portal vein thrombosis Cirrhosis HTN (hypertension) Surgical History S/P TIPS (transjugular intrahepatic portosystemic shunt) Social History Social History Household Members: Other Housing: Unknown / Unable to assess Do you presently have visiting nurse or other home services: No Unable to assess alcohol history related to: Unable to respond Alcohol intake: never Comment: 1:1 sitter Patient Tobacco Use Status: Current everyday Tobacco user Tobacco use type: Cigarette Cigarettes Per Day: 1 e-Cigarette/Vaping Use: Never Used Second Hand Smoke Exposure: No Substance Use Type: Heroin Advance Directives: Yes Advance Directives on File: Yes Advance Directives Date on File: 08/20/23 Do you have a plan to hurt others: No Plan service: No Current occupational status: retired Current occupation: rt handed Physical Exam ED Vital Signs: Vital Signs - 24 hr 12/25/23 14:50 12/25/23 20:44 12/25/23 22:06 Temperature 99.6 F 97.6 F Pulse Rate 69 53 Respiratory Rate 18 18 16 Blood Pressure 116/60 148/77 H Pulse Oximetry 96 98 Oxygen Delivery Method Room Air Room Air 12/25/23 22:55 12/26/23 02:05 12/26/23 04:53 Temperature 98.5 F Pulse Rate 75 Respiratory Rate 12 18 16 Blood Pressure 115/81 Pulse Oximetry 95 Oxygen Delivery Method Room Air 12/26/23 05:36 12/26/23 09:47 12/26/23 09:48 Temperature 97.8 F Pulse Rate 71 Respiratory Rate 16 Blood Pressure 131/63 131/63 131/63 Pulse Oximetry 95 Oxygen Delivery Method Room Air BMI result Body Mass Index 36.1 Const General: cooperative, healthy appearing, comfortable, no acute distress, well developed, alert, awake and Physically active [facility] Head: Yes normal to inspection, Yes No palpable skull fracture present, Yes normocephalic and Yes atraumatic Eyes General: appearance normal, both eyes and all related structures Neck Neck: Yes normal visual inspection, Yes full ROM, Yes no lymphadenopathy, Yes no meningeal signs, Yes trachea midline, Yes supple, No anterior neck swelling and No tender Chest Other: Negative for any bruises Chest palpation & inspection: normal inspection of the chest and normal palpation of entire chest wall Resp Effort & Inspection: normal respiratory effort and able to speak in complete sentences Auscultation: clear to auscultation bilaterally Cardio Jugular venous distension: no JVD Heart sounds: S1 normal heart sound present and S2 normal heart sound present GI Other: Negative for any ecchymosis or bruising Inspection: Yes normal to inspection and No abdominal wall ecchymosis Palpation (GI): Soft to palpation, not firm, nontender, no guarding and not rigid General: No CVA tenderness and Yes no CVA tenderness Back/Spine/Pelvis Back: no CVA tenderness, No CVA tenderness and No back tenderness Skin Other: Bilateral upper extremity ecchymosis without any tenderness on palpation. Negative for crepitus. Bilateral motor/vascular/neuro exam of extremities intact. Positive for right forearm old skin tear General skin exam: no rashes or lesions noted, elasticity normal and turgor normal Neuro General: no meningeal signs Extrem Other: Bilateral chronic venous stasis lymphedema without any tenderness on palpation. No warmth, ecchymosis, or crepitus. Motor neurovascular exam intact General: Yes normal to inspection, Yes full ROM and Yes capillary refill normal Psych Appearance: grossly normal, well kempt and not disheveled Course Reevaluation(s) Reevaluation #1: Sign-out was given to me pending CT, x-ray. CT of the chest revealing an L1 vertebral body compression fracture along with fractures of the left L2, L3, L4 transverse processes, cirrhotic liver, with upper abdominal varices. There is a foreign body in the proximal right colon, question of grill brush fragment. Discussed with Dr. Garg and reviewed images. Spoke to Dr. Castro, radiologist who reviewed images given findings who believes that these pieces are small and should be passed with stool. No emergent interventions needed at this time. Pt will be seen and evaluated by CM/PT for further evaluation for disposition. physician observation initiated pending PT/CM dispo. Time: 17:22 Reevaluation #2: Physician observation continued. Uneventful night. Vital signs stable. No complaints from nursing overnight. Med reconciliation not yet done, pending pharmacy review . Pending disposition. Will continue to monitor. Additional Reevaluation(s): 12/26/23--1241--physician observation continued. Labs reviewed. Physical therapy evaluated patient yesterday and recommended short-term rehab. Case management working on placement. Patient currently on methadone which will make placement more difficult. Will continue to monitor for discharge needs. Medications Administered Generic Name Dose Route Start Last Admin Trade Name Dariusq PRN Reason Stop Dose Admin Acetaminophen 650 mg 12/25/23 14:24 12/26/23 09:47 Acetaminophen 325 Mg Tablet PO 650 mg Q6H PRN Administration Pain, Mild (Pain Scale 1-3) Docusate Sodium 100 mg 12/25/23 14:30 12/26/23 09:48 Docusate Sodium 100 Mg Capsule PO 100 mg BID LEONARDO Administration Folic Acid 1 mg 12/25/23 14:30 12/26/23 09:48 Folic Acid 1 Mg Tablet PO 1 mg DAILY LEONARDO Administration Furosemide 40 mg 12/25/23 14:30 12/26/23 09:47 Furosemide 40 Mg Tablet PO 40 mg DAILY LEONARDO Administration Protocol Lactulose 30 gm 12/25/23 15:00 12/26/23 09:48 Lactulose 20 Gm/30 Ml Solution PO 30 gm TID LEONARDO Administration Omeprazole 20 mg 12/25/23 21:00 12/26/23 05:40 Omeprazole 20 Mg Capsule. PO 20 mg BID@0630,1630 LEONARDO Administration Spironolactone 100 mg 12/25/23 14:30 12/26/23 09:48 Spironolactone 25 Mg Tablet PO 100 mg BID LEONARDO Administration Protocol Thiamine HCl 100 mg 12/25/23 14:30 12/26/23 09:48 Thiamine Hcl 100 Mg Tablet PO 100 mg DAILY LEONARDO Administration Discontinued Medications Generic Name Dose Route Start Last Admin Trade Name Xenia PRN Reason Stop Dose Admin Acetaminophen 650 mg 12/25/23 04:34 12/25/23 04:44 Acetaminophen 325 Mg Tablet PO 12/25/23 04:35 650 mg ONCE ONE Administration Iohexol 100 ml 12/24/23 15:23 12/24/23 15:23 Iohexol 350 Mg/Ml 100 Ml Infus..Btl IV 12/24/23 15:24 85 ml ONCE ONE Administration Medical Decision Making Medical Decision Making MDM Narrative: [age] year male history of alcohol abuse, polysubstance abuse, GI bleed venous thrombosis presents to ED for recurrent fall and generalized weakness. Patient admits to social drinking. Patient would like long-term care. Head CT cervical spine CT scan ordered. Patient does not have any abdominal chest wall ecchymosis, or tenderness. Presently no indication for chest abdomen CT 4:31PM; patient complaining of back pain so he was sent for chest CT abdominal CT scan to evaluate spine and also to rule out any internal bleeding. Patient labs were at baseline. Patient not in any distress. Case signed out to JAVIER Fan Lab Data 12/24/23 13:07 12/24/23 13:07 Labs: Lab Results 12/24/23 12/24/23 Range/Units 13:07 14:39 WBC 3.3 L (4.8-10.8) X10*3/uL RBC 3.92 L (4.60-5.80) X10*6/uL Hgb 12.4 L (14.0-18.0) g/dl Hct 35.4 L (42.0-52.0) % MCV 90.3 (80.0-98.0) fL MCH 31.6 (27.0-33.0) pg MCHC 35.0 (31.0-36.0) g/dl RDW 15.5 (11.0-16.0) % Plt Count 100 L D (160-400) X10*3/uL MPV 9.5 (9.4-12.4) fL Immature Gran % (Auto) 0.3 (0.0-0.4) % Neut % (Auto) 64.9 (45-73) % Lymph % (Auto) 20.0 (20-40) % [place] % (Auto) 8.8 (2-11) % Eos % (Auto) 4.2 H (0-4) % Baso % (Auto) 1.8 (0-2) % Lymph # (Auto) 0.7 L (1.2-4.9) X10*3/uL [place] # (Auto) 0.3 (0.1-1.2) X10*3/uL Eos # (Auto) 0.1 (0.0-0.4) X10*3/uL Baso # (Auto) 0.1 (0.0-0.2) X10*3/uL Abs Immat Gran (auto) 0.01 (0.00-0.03) X10*3/uL Absolute Neuts (auto) 2.1 (2.0-8.3) x10*3/uL Absolute Nucleated RBC 0.000 (0.0-0.012) X10*3/uL Nucleated RBC % (auto) 0.0 (0.0-0.2) /100WBC PT 14.3 H (11.1-13.3) SEC INR 1.2 H (0.9-1.1) APTT 29.1 D (26.0-36.8) SEC Sodium 138 (135-145) mmol/L Potassium 4.0 (3.3-5.1) mmol/L Chloride 105 (96-108) mmol/L Carbon Dioxide 27 (22-29) mmol/L Anion Gap 10 L (12-20) BUN 9 (9-16) mg/dL Creatinine 0.75 (0.5-1.4) mg/dL Estim Creat Clear Calc 99.6 Estimated GFR > 60 Random Glucose 123 H (60-115) mg/dL Calcium 8.8 (8.4-10.2) mg/dL Magnesium 1.6 (1.6-2.6) mg/dL Total Bilirubin 1.2 H (0.0-1.0) mg/dL AST 28 (5-37) U/L ALT 16 (0-40) U/L Alkaline Phosphatase 106 (39-117) U/L Troponin I High Sens 3.9 (<3.5-35.0) ng/L Total Protein 6.6 (6.5-8.0) g/dL Albumin 3.1 L (3.5-5.0) g/dL Urine Opiates Screen POSITIVE H (Not Detect) Ur Buprenorphine Scrn Not Detected (Not Detect) ng/mL Ur Oxycodone Screen Not Detected (Not Detect) ng/mL Urine Methadone Screen Positive H (Not Detect) ng/mL Urine Fentanyl Screen POSITIVE H (Not Detect) Ur Barbiturates Screen Not Detected (Not Detect) Ur Phencyclidine Scrn Not Detected (Not Detect) Ur Amphetamines Screen Not Detected (Not Detect) U Benzodiazepines Scrn Not Detected (Not Detect) Urine Cocaine Screen Not Detected (Not Detect) U Marijuana (THC) Screen Not Detected (Not Detect) Ethyl Alcohol 13 mg/dL Radiology Impression Discussion of test interpretation with radiology: I have reviewed the radiologist's reading. Radiologist Impression: CT/CT abdomen pelvis w IV con IMPRESSION: 1. Acute appearing mild compression fracture of the superior endplate of the L1 vertebral body. Fractures of the left L2, L3 and L4 transverse processes. 2. Cirrhotic appearing liver. TIPS shunt. Enlarged spleen and upper abdominal varices. No ascites. 2 plastic biliary stents. Gallstones. No biliary duct dilatation. 3. Question foreign body in the proximal right colon, linear and very dense, question grill brush fragment. No surrounding inflammatory changes. Large stool burden. 4. No evidence of hemorrhage. 5. Small nonobstructing left renal stones. Fleischner guidelines were followed. Dictated By: Laura Roblero MD CT/CT head/brain wo IV con IMPRESSION: No acute findings. Mild generalized atrophy and nonspecific periventricular white matter disease. Dictated By: Laura Roblero MD CT/CT chest w IV con IMPRESSION: No evidence for acute disease in the chest. L1 vertebral body compression fracture. Fleischner guidelines were followed. Dictated By: Laura Roblero MD XR/XR forearm LT 2V IMPRESSION: Normal left forearm. Dictated By: Stephen Castro MD XR/XR forearm RT 2V IMPRESSION: 1. No acute abnormality of the radius or ulna. 2. Chronic nonunited ulnar styloid fracture. Dictated By: Stephen Castro MD Discharge Plan Discharge Clinical Impression: Fall, Compression fracture of L1 lumbar vertebra, Fracture of transverse process of lumbar vertebra Patient Disposition: Still a Patient Prescriptions: No Action folic acid 1 mg tablet 1 mg PO DAILY Qty: 30 0RF thiamine HCl (vitamin B1) 100 mg tablet 100 mg PO DAILY Qty: 30 0RF docusate sodium 100 mg Capsule 100 mg PO BID methadone [Methadose] 10 mg/mL Concentrate 40 mg PO DAILY Qty: 30 0RF pantoprazole [Protonix] 40 mg tablet,delayed release (DR/EC) 40 mg PO BID 30 Days Qty: 60 0RF lactulose 20 gram/30 mL Solution 30 g PO TID Qty: 1200 0RF spironolactone 100 mg tablet 100 mg PO BID acetaminophen 325 mg Tablet 650 mg PO Q6H PRN (Reason: Pain) furosemide 40 mg tablet 40 mg PO DAILY Referrals: [facility] [Provider Group] Print Language: Georgian
[2023-12-24 13:23] LABS: INTERNATIONAL NORM RATIO 1.2 (0.9-1.1); Prothrombin Time 14.3 SEC (11.1-13.3)
[2023-12-24 13:26] LABS: Partial Thromboplastin Time 29.1 SEC (26.0-36.8)
[2023-12-24 13:35] LABS: Alanine Aminotransferase 16 U/L (0-40); Albumin Level 3.1 g/dL (3.5-5.0); Alkaline Phosphatase 106 U/L (39-117); Anion Gap 10 (12-20); Aspartate Amino Transferase 28 U/L (5-37); Bilirubin Total 1.2 mg/dL (0.0-1.0); Blood Urea Nitrogen 9 mg/dL (9-16); Calcium 8.8 mg/dL (8.4-10.2); Carbon Dioxide 27 mmol/L (22-29); Chloride 105 mmol/L (96-108); Creatinine Clr Calc Pharmacy 99.6; Estimated Glomerular Filt Rate > 60; Ethanol 13 mg/dL; Glucose Random 123 mg/dL (60-115); Magnesium 1.6 mg/dL (1.6-2.6); Sodium 138 mmol/L (135-145); Total Protein 6.6 g/dL (6.5-8.0)
[2023-12-24 13:38] LABS: Troponin-I High Sensitivity 3.9 ng/L (<3.5-35.0)
[2023-12-24 14:37] VITALS: BP 116/65; PULSE 70; RESP 10; TEMP 36.7; O2SAT 96
[2023-12-24 14:57] LABS: Amphetamine Screen Urine Not Detected (Not Detect); Barbiturates, Urine Not Detected (Not Detect); Benzodiazepines Screen Urine Not Detected (Not Detect); Buprenorphine Scr Not Detected (Not Detect); Cannabinoid Screen Urine Not Detected (Not Detect); Cocaine Screen Urine Not Detected (Not Detect); Fentanyl, urine POSITIVE (Not Detect); Methadone Screen, Urine Positive (Not Detect); Opiate Screen Urine POSITIVE (Not Detect); Oxycodone Screen Urine Not Detected (Not Detect); Phencyclidine Screen Urine Not Detected (Not Detect)
[2023-12-24] MEDS: iohexoL 350 MG/ML 100 ML INFUS..BTL IV (15:23)
[2023-12-24 16:25] VITALS: BP 135/70; PULSE 87; RESP 18; TEMP 36.2; O2SAT 96
[2023-12-24 18:11] VITALS: BP 128/75; PULSE 69; RESP 18; TEMP 36.2; O2SAT 93
[2023-12-24 19:54] VITALS: BP 111/62; PULSE 76; RESP 20; TEMP 36.7; O2SAT 95
--- NOTE | 2023-12-24 21:58 | MHC.CM.ED ---
Cm met with patient at request of Dr. Croft. Pt lives at the [place] [id number]. He uses a rollator. He has no services. He does not have a PCP. He does have a HCP on file. Chantel Souza ([phone]). Pt has a history of alcohol and substance misuse. He is currently taking 40 mg methadone daily. He states a nurse comes from the [facility] on [facility] daily with his methadone. Tox screen positive for opiates, methadone and fentanyl. Pt admits to drinking a beer today. Pt has difficulty ambulating and is requesting STR. He s very clear that he does not want to live in a correction all of the time. Pt is awaiting a PT evaluation. Will place local referrals that are contracted with [facility]. CM will follow for discharge planning.
[2023-12-25] MEDS: Acetaminophen 325 MG TABLET 650 MG PO ×3 (04:44→21:06)
[2023-12-25 06:00] VITALS: BP 110/66; PULSE 72; RESP 20; TEMP 36.2; O2SAT 95
[2023-12-25 09:14] VITALS: BP 116/65; PULSE 71; RESP 16; TEMP 37.4; O2SAT 94
--- NOTE | 2023-12-25 09:38 | MHC.EDTECH ---
Addendum entered by Laura Jiang 12/25/23 09:39: Urine emptied was 450ml Original Note: Set up patient for breakfast. Emptied 250 ml of urine.
--- NOTE | 2023-12-25 14:12 | PHA.MEDREC ---
Pharmacy Consult ? Medication Reconciliation Pharmacy has completed the medication reconciliation. patient does not know his home medications. He reported a methadone dose of 40 or 50mg, he could not remember, last taken yesterday morning, he receives it from his visiting nurse that gets it from [facility] clinic on [facility]. He confirmed he still uses [email or web address] for his VNA service however they are closed today. used claim history to confirm med rec.
--- NOTE | 2023-12-25 14:14 | MHC.CM.PN ---
[facility] HAS OFFERED PT A BED PENDING AUTH AND PT WILL NEED GUEST DOSING SET UP WITH [facility] ON WEDNESDAY. CM WILL CONTINUE TO FOLLOW FOR PLAN
[2023-12-25] MEDS: Thiamine HCL 100 MG TABLET PO (14:48)
[2023-12-25] MEDS: Folic Acid 1 MG TABLET PO (14:48)
[2023-12-25] MEDS: Lactulose 20 GM/30 ML SOLUTION 30 GM PO (14:48)
[2023-12-25] MEDS: Docusate Sodium 100 MG CAPSULE PO ×2 (14:48→21:07)
[2023-12-25 14:50] VITALS: BP 116/60; PULSE 69; RESP 18; TEMP 37.6; O2SAT 96
[2023-12-25] MEDS: Spironolactone 25 MG TABLET 100 MG PO ×2 (14:57→21:07)
[2023-12-25] MEDS: Furosemide 40 MG TABLET PO (14:57)
--- NOTE | 2023-12-25 15:22 | MHC.EDTECH ---
350ml urine emptied.
[2023-12-25 20:44] VITALS: BP 148/77; PULSE 53; RESP 18; TEMP 36.4; O2SAT 98
[2023-12-25] MEDS: Omeprazole 20 MG CAPSULE.DR PO (21:07)
[2023-12-25 22:06] VITALS: RESP 16
[2023-12-25 22:55] VITALS: BP 115/81; PULSE 75; RESP 12; TEMP 36.9; O2SAT 95
[2023-12-26] VITALS (8 sets, daily range): BP systolic 109–131; BP diastolic 60–67; PULSE 71–82; RESP 16–18; TEMP 36.6–36.7; O2SAT 95–96
--- NOTE | 2023-12-26 02:23 | PC.NURSE ---
Assumed care of patient at 19:00. Patient continues in ED overflow pending PT/CM/placement. A&Ox3, forgetful to time/year but easily reorients. Rings appropriately to make needs known. Denies chest pain, sob, n/v. +radial and dp pulses, +cms. BLE with brown discoloration/dry skin c/w hx of bilateral chronic venous stasis lymphedema noted. Pt reports mild pain in his back, previously imaged this visit. Pt reports pain is well controlled with prn tylenol and heat packs. Tolerating diet without n/v. Voiding adequate amounts cyu via urinal. Bed alarm on and safety measures in place. #20 IV LUE intact and patent without issue.
[2023-12-26] MEDS: Acetaminophen 325 MG TABLET 650 MG PO ×3 (03:49→19:51)
[2023-12-26] MEDS: Omeprazole 20 MG CAPSULE.DR PO ×2 (05:40→16:10)
[2023-12-26] MEDS: Furosemide 40 MG TABLET PO (09:47)
[2023-12-26] MEDS: Spironolactone 25 MG TABLET 100 MG PO ×2 (09:48→19:50)
[2023-12-26] MEDS: Folic Acid 1 MG TABLET PO (09:48)
[2023-12-26] MEDS: Lactulose 20 GM/30 ML SOLUTION 30 GM PO ×2 (09:48→16:10)
[2023-12-26] MEDS: Thiamine HCL 100 MG TABLET PO (09:48)
[2023-12-26] MEDS: Docusate Sodium 100 MG CAPSULE PO ×2 (09:48→19:50)
--- NOTE | 2023-12-26 10:00 | PC.NURSE ---
Methadone dose verified and verification faxed to pharmacy
--- NOTE | 2023-12-26 10:52 | HE.PHANOTE ---
RE METHADONE VERIFICATION LAST DOSE 40 MG GIVEN 12/23/23 @[facility]
[2023-12-26] MEDS: methADONE HCl 20 MG/2 ML ORAL.CONC 40 MG PO (12:46)
--- NOTE | 2023-12-26 18:04 | MHC.EDTECH ---
Patient was set up with dinner ate 100 % of meal and drank 240 ml fluids ,Patient comfortable watching television .
--- NOTE | 2023-12-26 18:22 | PC.NURSE ---
Patient spent most shift in bed, ambulated to the bathroom with one assist, also used urinal at bedside,
[2023-12-27] MEDS: Acetaminophen 325 MG TABLET 650 MG PO ×3 (02:06→20:14)
[2023-12-27 05:43] VITALS: BP 127/74; PULSE 97; RESP 16; TEMP 36.3; O2SAT 95
--- NOTE | 2023-12-27 05:47 | MHC.EDTECH ---
PATIENT SLEPT MOST OF THE NIGHT ,UP A FEW TIMES TO VOID AND FOR BACK PAIN ,600 ML URINE EMPTY FROM URINAL .VITALS TAKEN .
[2023-12-27] MEDS: Omeprazole 20 MG CAPSULE.DR PO ×2 (06:04→17:08)
--- NOTE | 2023-12-27 08:16 | MHC.EDTECH ---
Patient assisted to bathroom, while in bathroom, this pct changed patient bed linen. Patient is now resting comfortably in the bedside recliner call cantu within reach.
[2023-12-27] MEDS: Thiamine HCL 100 MG TABLET PO (08:46)
[2023-12-27] MEDS: Folic Acid 1 MG TABLET PO (08:47)
[2023-12-27] MEDS: Docusate Sodium 100 MG CAPSULE PO ×2 (08:47→20:12)
[2023-12-27] MEDS: methADONE HCl 20 MG/2 ML ORAL.CONC 40 MG PO (08:47)
[2023-12-27] MEDS: Furosemide 40 MG TABLET PO (10:19)
[2023-12-27] MEDS: Spironolactone 25 MG TABLET 100 MG PO ×2 (10:19→20:12)
--- NOTE | 2023-12-27 11:44 | MHC.CM.ED ---
Patient remains in ER. [facility] appears to be able to offer a bed. Waiting for confirmation. Will need insurance auth from [facility]. Patient will need [facility] PAS Level 2. T/W has submitted for this. Patient will also need guest methadone dosing at [facility]. Nadja, service department manager assisting with this. However the 2 people at [facility] that can assist with guest dosing are not on today. Continue to montior for d/c needs.
[2023-12-27 14:00] VITALS: BP 103/62; PULSE 66; RESP 18; TEMP 36.8; O2SAT 95
[2023-12-27 20:11] VITALS: BP 120/70; PULSE 66; RESP 16; TEMP 37.2; O2SAT 95
[2023-12-28] MEDS: Acetaminophen 325 MG TABLET 650 MG PO ×3 (05:03→21:43)
--- NOTE | 2023-12-28 05:49 | PC.NURSE ---
pt resting comfortably through the night with eyes closed, breathing even and unlabored. no apparent distress noted. call cantu w/in reach. pt requested Tylenol for back time at 0500, pt medicated per SEP. used urinal at bedside.
[2023-12-28] MEDS: Omeprazole 20 MG CAPSULE.DR PO ×2 (06:02→16:54)
[2023-12-28 06:08] VITALS: BP 97/66; PULSE 103; RESP 19; TEMP 36.6; O2SAT 92
[2023-12-28 07:31] VITALS: BP 97/66
[2023-12-28] MEDS: Spironolactone 25 MG TABLET 100 MG PO ×2 (07:31→21:42)
[2023-12-28] MEDS: Docusate Sodium 100 MG CAPSULE PO ×2 (07:31→21:42)
[2023-12-28] MEDS: Folic Acid 1 MG TABLET PO (07:32)
[2023-12-28] MEDS: Lactulose 20 GM/30 ML SOLUTION 30 GM PO ×3 (07:32→21:42)
[2023-12-28] MEDS: methADONE HCl 20 MG/2 ML ORAL.CONC 40 MG PO (07:32)
[2023-12-28] MEDS: Thiamine HCL 100 MG TABLET PO (07:32)
[2023-12-28 09:58] VITALS: BP 122/61; PULSE 66; RESP 16; TEMP 37.2; O2SAT 95
--- NOTE | 2023-12-28 11:38 | PC.NURSE ---
Report taken, contact made to pharmacy at 1130 regarding meds not stocked in [facility] pyxis. Per Mo from pharmacy, Meds have been sent down, and will track down. Plan at this time is to follow up with pharmacy at 1200 it check status.
--- NOTE | 2023-12-28 11:45 | PC.NURSE ---
Called pharmacy x4 beginning at ~0750 regarding lasix not being loaded in pyxis. This RN got floated at ~1140 and med was still not loaded, oncoming RN aware.
[2023-12-28] MEDS: Furosemide 40 MG TABLET PO (11:58)
--- NOTE | 2023-12-28 14:56 | PC.NURSE ---
reported sudden onset of nausea. PA made aware via tiger text. awaiting orders.
[2023-12-28 14:57] VITALS: BP 124/69; PULSE 93; RESP 18; TEMP 36.8; O2SAT 96
--- NOTE | 2023-12-28 15:02 | PC.NURSE ---
Per mallory HERRERA one time dose of zofran okay- 4mg max. Made aware of alert via CIBDO for prolong qt interval.
[2023-12-28] MEDS: Ondansetron ODT 4 MG TAB.RAPDIS TRANSLINGU (15:06)
[2023-12-28 18:39] VITALS: BP 128/70; PULSE 77; RESP 18; TEMP 36.8; O2SAT 95
--- NOTE | 2023-12-28 19:21 | PC.NURSE ---
This RN assumed pt care @ 1900. Pt ca&ox3, no signs of acute distress. Pt requested and given drink, light and TV turned off. Plan of care ongoing.
[2023-12-28 21:42] VITALS: BP 98/64
--- NOTE | 2023-12-28 21:54 | PC.NURSE ---
Pt medicated per sep. Pt requested and given tylenol for back pain. Pt requested and light turned off Plan of care ongoing.
[2023-12-29] VITALS (7 sets, daily range): BP systolic 95–141; BP diastolic 56–71; PULSE 70–92; RESP 12–18; TEMP 36.9–37.3; O2SAT 94–97
[2023-12-29] MEDS: Omeprazole 20 MG CAPSULE.DR PO ×2 (06:31→16:33)
[2023-12-29] MEDS: Acetaminophen 325 MG TABLET 650 MG PO ×2 (06:33→17:47)
--- NOTE | 2023-12-29 06:34 | PC.NURSE ---
Pt medicated per sep. Pt requested and given tylenol. Plan of care ongoing.
[2023-12-29] MEDS: Thiamine HCL 100 MG TABLET PO (08:06)
[2023-12-29] MEDS: Furosemide 40 MG TABLET PO (08:06)
[2023-12-29] MEDS: Docusate Sodium 100 MG CAPSULE PO ×2 (08:06→20:26)
[2023-12-29] MEDS: Folic Acid 1 MG TABLET PO (08:06)
[2023-12-29] MEDS: Spironolactone 25 MG TABLET 100 MG PO ×2 (08:06→20:33)
[2023-12-29] MEDS: methADONE HCl 20 MG/2 ML ORAL.CONC 40 MG PO (08:06)
--- NOTE | 2023-12-29 08:22 | MHC.CM.ED ---
Patient remains in ER overflow. Release of info form signed for [facility] so they can arrange guest dosing for Methadone at [facility] in [place] to start 12/30. [facility] made aware. Waiting for ins auth from [facility]. Continue to monitor for d/c needs.
--- NOTE | 2023-12-29 23:31 | PC.NURSE ---
Assumed care at 1900. Patient alert and oriented, denies pain at this time, vss, using bedside urinal. Medicated per sep. Callbell within reach, snack provided.
[2023-12-30 06:15] VITALS: BP 92/62; PULSE 68; RESP 16; TEMP 37; O2SAT 94
[2023-12-30] MEDS: Omeprazole 20 MG CAPSULE.DR PO ×2 (06:20→17:42)
--- NOTE | 2023-12-30 06:38 | PC.NURSE ---
pt Ax4, vss all stable except lowered blood pressure, denies hypotensive symptoms, ambulated to bathroom 1 assist with walker and shuffled gait, uses urinal at bedside., awaiting PT and Case Management consults
--- OUTSIDE RECORDS SUMMARY | 2023-12-30 06:44 | XMS_ITS | Patient Health Record ---
Author Organization [facility] Address [address] [place] [address] Care Team Providers Care Clothing Sorter Name Role Phone Alvarolaly Michelle Primary Care Provider Unavailab Jose Antonio Koehler Unavailable [phone] Alyse Wells Unavailable Unavailable ALLERGIES No Known [...] C without hepatic coma (B18.2) Active confirmed 345125323 Problem Alcoholic cirrhosis of liver without ascites (K70.30) Active confirmed 217803512 Problem Gastric varices (I86.4) Active confirmed 67332385 Problem Esophageal varices without bleeding (I85.00) Active confirmed 523360496 Problem Other cirrhosis of liver (K74.69) Active confirmed 98506951 Problem 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 [employer] [address] [place] [address] [id number] MERLIN REZA Self - patient is the [...] scan was negative for any mass--admitted to [facility] early 07/2015 for an UGI bleed due to gastric varices--could not control endoscopically and was transferred to [facility]--TIPS was unsuccessful due to the partial portal vein thrombosis---varices were treated with a Balloon-occluded Retrograde Transvenous Obliteration(BRTO) by the IR department at [facility]--transferred to [facility] rehab 07/18/15 and D/C'd to home on approx. 08/07/15. He has been treated with 12 weeks of Harvoni for the Hepatitis C through the end of December,---nondetectable Hepatitis C viral load in 04/2016 and normal LFT's. He is being evaluated at [facility]plant Dept and is on [...] small bowel obstruction treated n onsurgically at [facility] Upper GI bleed treated with a TIPS at [facility] in December 2016--he was also started on Coumadin in regard to DVTs and pulmonary emboli. He was dismissed from the tr ansplant program in December of 2020 due to continued substance abuse issues. Surgical History Surgery Date(Month/Year) Umbilical hernia TIPS
[2023-12-30 08:42] VITALS: BP 112/64
[2023-12-30] MEDS: Thiamine HCL 100 MG TABLET PO (08:42)
[2023-12-30] MEDS: methADONE HCl 20 MG/2 ML ORAL.CONC 40 MG PO (08:42)
[2023-12-30] MEDS: Folic Acid 1 MG TABLET PO (08:42)
[2023-12-30] MEDS: Spironolactone 25 MG TABLET 100 MG PO ×2 (08:42→19:41)
[2023-12-30] MEDS: Furosemide 40 MG TABLET PO (08:42)
[2023-12-30] MEDS: Docusate Sodium 100 MG CAPSULE PO ×2 (08:42→19:42)
[2023-12-30 14:00] VITALS: BP 103/67; PULSE 61; RESP 14; TEMP 37.1; O2SAT 95
--- NOTE | 2023-12-30 15:40 | MHC.CM.ED ---
Patient remains in ER overflow. Waiting to hear from [facility] about insurance auth. Guest dosing has been arranged at [facility] in [place]. Received telephoen call from Luz Marina at [facility] trying to verify if patient will be d/c'd to SNF today. T/W explained still waiting to see if [facility] has auth. Luz Marina requesting last dose letter be faxed to [phone] and that voicemail be left at [phone]. Reached out to [facility]. tristan Magdaleno is out of the building. Sharon is covering. T/W spoke with Sharon via telephone at [phone]. Sharon will look into auth and get back to CM. Baez to monitor for d/c needs.
[2023-12-30] MEDS: Acetaminophen 325 MG TABLET 650 MG PO ×2 (19:41)
[2023-12-30 19:51] VITALS: BP 95/40; PULSE 73; RESP 16; TEMP 37.2; O2SAT 94
--- NOTE | 2023-12-30 21:54 | PC.NURSE ---
Assumed care of patient at 19:00. Patient continues in ED overflow pending PT/CM/placement. A&Ox3, intermittently forgetful to time/year but easily reorients. Denies chest pain, sob, n/v. +radial and dp pulses, +cms. Pmhx of bilateral chronic venous stasis lymphedema noted; patient continues on scheduled diuretics given per SEP as ordered and appropriate. Pt continues to report mild pain in his back, given prn tylenol and heat packs with pt reported improvement. Tolerating diet without n/v. Voiding adequate amounts cyu via urinal. Bed alarm on and safety measures in place. #20 IV to LUE intact and patent without issue. Bed alarm on and safety measures in place. Call cantu within reach. Rings appropriately to make needs known.
--- NOTE | 2023-12-31 03:10 | MHC.EDTECH ---
pt was assisted with the urinal voided 300
[2023-12-31 04:47] VITALS: BP 109/69; PULSE 58; RESP 15; TEMP 36.9; O2SAT 95
[2023-12-31] MEDS: Omeprazole 20 MG CAPSULE.DR PO ×2 (06:32→16:40)
[2023-12-31] MEDS: Docusate Sodium 100 MG CAPSULE PO ×2 (08:35→20:28)
[2023-12-31] MEDS: Folic Acid 1 MG TABLET PO (08:35)
[2023-12-31] MEDS: Thiamine HCL 100 MG TABLET PO (08:35)
[2023-12-31] MEDS: methADONE HCl 20 MG/2 ML ORAL.CONC 40 MG PO (08:35)
[2023-12-31 08:44] VITALS: BP 109/69
[2023-12-31] MEDS: Spironolactone 25 MG TABLET 100 MG PO ×2 (08:44→20:28)
--- NOTE | 2023-12-31 10:11 | MHC.CM.ED ---
CM received confirmation of insurance auth from [facility], but they tell CM that [facility] does not service them on Fridays, so they are requesting that patient be dosed with his methadone on Wednesday morning and be discharge to [facility], with dosing from [facility] to begin on Wednesday. Pt is aware and agreeable. CM called [facility] and left a message regarding discharge date and need for dosing on Wednesday.
[2023-12-31 10:16] VITALS: BP 107/69
[2023-12-31] MEDS: Furosemide 40 MG TABLET PO (10:16)
--- NOTE | 2023-12-31 11:42 | MHC.CM.ED ---
Received return phone call from Luz Marina at [facility]. She states they can dose him on Wednesday if he is dosed and discharged on Wednesday. She would like ED notes and last methadone dose paperwork faxed to her on Wednesday at [phone]
[2023-12-31 14:00] VITALS: BP 118/76; PULSE 64; RESP 18; TEMP 36.6; O2SAT 94
--- NOTE | 2023-12-31 17:13 | MHC.EDTECH ---
pt ate 75% of there dinner
[2023-12-31 20:32] VITALS: BP 119/68; PULSE 62
[2023-12-31 21:43] VITALS: BP 115/67; PULSE 67; RESP 18; TEMP 36.4; O2SAT 93
[2023-12-31] MEDS: ondansetron HCL 4 MG/2 ML VIAL IVPUSH (23:21)
--- NOTE | 2024-01-01 03:43 | PC.NURSE ---
Assumed care of patient at 1900. A&Ox3, vital signs stable. Patient had an episode of vomiting. Moderate amount of light brown emesis noted . Provider notified , Zofran IV ordered and administered. Patient states some relieve. IV in LUE intact. Patient resting at present time. Safety measures in place, bed alarm on .
[2024-01-01] MEDS: Omeprazole 20 MG CAPSULE.DR PO ×2 (05:32→17:00)
[2024-01-01 06:00] VITALS: BP 101/54; PULSE 62; RESP 16; TEMP 36.7; O2SAT 97
[2024-01-01 08:27] VITALS: BP 110/61; PULSE 70; RESP 14; TEMP 37.2; O2SAT 97
[2024-01-01] MEDS: Thiamine HCL 100 MG TABLET PO (08:47)
[2024-01-01] MEDS: Folic Acid 1 MG TABLET PO (08:47)
[2024-01-01] MEDS: Docusate Sodium 100 MG CAPSULE PO ×2 (08:47→20:28)
[2024-01-01] MEDS: Spironolactone 25 MG TABLET 100 MG PO ×2 (08:47→20:28)
[2024-01-01] MEDS: Furosemide 40 MG TABLET PO (08:48)
[2024-01-01] MEDS: methADONE HCl 20 MG/2 ML ORAL.CONC 40 MG PO (08:49)
--- NOTE | 2024-01-01 09:04 | PC.NURSE ---
Addendum entered by Brianna Medel RN 01/01/24 10:19: Urinal emptied for 425 CYU. Appropriately using call cantu and making needs known. Original Note: Assumed care of pt at approx 0700. A&Ox3, vague to year, aware of ongoing plan of care and disposition. Medicated pt per SEP, pt refused PO Lactulose. Pt denies nausea since last night. No complaints offered at this time. Urinal emptied for 225cc CYU. Call cantu within reach. Safety measures in place.
--- NOTE | 2024-01-01 10:16 | MHC.CM.PN ---
Addendum entered by Mary Bah RN 01/01/24 14:39: PT PREBOOKED FOR TOMORROW AT 11AM VIA [facility] Original Note: EMR REVIEWED, PER PREVIOUS CM NOTES [facility] HAS AUTH AND PT CAN DC TOMORROW 01/01 AFTER METHADONE DOSE, CM TO SET UP TRANSPORT VIA [facility]
[2024-01-01 12:42] VITALS: BP 91/56; PULSE 66; RESP 14; TEMP 36.7; O2SAT 97
[2024-01-01 20:39] VITALS: BP 116/77; PULSE 70; RESP 16; TEMP 36.7; O2SAT 96
[2024-01-01] MEDS: Ondansetron ODT 4 MG TAB.RAPDIS TRANSLINGU (21:18)
[2024-01-01] MEDS: diphenhydrAMINE HCL 50 MG/ML VIAL 25 MG IVPUSH (22:32)
[2024-01-01] MEDS: Metoclopramide HCl 10 MG/2 ML VIAL IVPUSH (22:32)
--- NOTE | 2024-01-02 04:29 | PC.NURSE ---
Pt AOx3, can be forgetful at times. Pt c/o nausea, ED PA contacted for medication. Later in this RN's shift, pt did vomit, food particles were in the emesis. Contacted ED PA again for antiemetic. See MAR for all medication administration. Pt uses urinal, able to make needs known. Call cantu within reach. Safet maintained throughout shift.
[2024-01-02 04:55] VITALS: BP 117/74; PULSE 62; RESP 16; TEMP 36; O2SAT 95
[2024-01-02] MEDS: Omeprazole 20 MG CAPSULE.DR PO (05:57)
[2024-01-02 08:14] VITALS: BP 112/68; PULSE 71; RESP 16; TEMP 36.7; O2SAT 97
--- NOTE | 2024-01-02 09:12 | MHC.CM.PN ---
PT DISCHARGING TO [facility] AT 11AM VIA [facility], LAST DOSE LETTER AND FINAL ED DOC FAXED TO [facility] [phone] AND MESSAGE LEFT ON [phone] PER [facility] REQUEST, LAST DOSE LETTER TO BE SENT W/PT TO FACILITY.
[2024-01-02] MEDS: Spironolactone 25 MG TABLET 100 MG PO (09:13)
[2024-01-02] MEDS: Docusate Sodium 100 MG CAPSULE PO (09:13)
[2024-01-02] MEDS: Thiamine HCL 100 MG TABLET PO (09:13)
[2024-01-02] MEDS: Folic Acid 1 MG TABLET PO (09:13)
[2024-01-02] MEDS: methADONE HCl 20 MG/2 ML ORAL.CONC 40 MG PO (09:13)
[2024-01-02] MEDS: Furosemide 40 MG TABLET PO (09:13)
[2024-01-02 09:43] VITALS: BP 112/68; PULSE 71; RESP 16; TEMP 36.7; O2SAT 97
[2024-01-02 10:29] VITALS: BP 128/76; PULSE 71; RESP 14; TEMP 37.1; O2SAT 96
== END 2024-01-02 11:19 ==
PROVIDERS: Physician Assistant; Emergency Provider Emergency Medicine; PCP Internal Medicine
DX: S32.019A Unspecified fracture of first lumbar vertebra, initial encounter for closed fracture (principal); S40.021A Contusion of right upper arm, initial encounter; S40.022A Contusion of left upper arm, initial encounter; F10.129 Alcohol abuse with intoxication, unspecified; F11.10 Opioid abuse, uncomplicated; R26.2 Difficulty in walking, not elsewhere classified; M54.2 Cervicalgia; R51.9 Headache, unspecified; R07.89 Other chest pain; F17.210 Nicotine dependence, cigarettes, uncomplicated; I45.10 Unspecified right bundle-branch block; M79.632 Pain in left forearm; M79.631 Pain in right forearm; W01.10XA Fall on same level from slipping, tripping and stumbling with subsequent striking against unspecified object, initial encounter; Y93.9 Activity, unspecified; Y92.9 Unspecified place or not applicable; Y99.8 Other external cause status; Y90.0 Blood alcohol level of less than 20 mg/100 ml; Z91.81 History of falling; Z79.01 Long term (current) use of anticoagulants; Z79.899 Other long term (current) drug therapy; Z51.81 Encounter for therapeutic drug level monitoring; Z71.51 Drug abuse counseling and surveillance of drug abuser
CPT/HCPCS: 36415; 70450; 71260; 72125; 73090; 74177; 80053; 80307; 83735; 84484; 85025; 85610; 85730; 93005; 96374; 96375; 97162; 99285; J1200; J2405; J2765; Q9967

== ENCOUNTER → 2023-12-24 12:37 | Outpatient (BNV) | payer OTHER, SELFPAY | PROVIDERS: Emergency Provider Emergency Medicine; Visit Provider Internal Medicine Cardiovascular Disease | DX: R94.31 Abnormal electrocardiogram [ECG] [EKG] (principal) | CPT/HCPCS: 93010 ==

== ENCOUNTER 2024-05-10 09:50 | Inpatient (IN) | payer OTHER, SELFPAY ==
[2024-05-10] VITALS (9 sets, daily range): BP systolic 104–138; BP diastolic 50–79; PULSE 82–116; RESP 10–18; TEMP 36.9–37.2; O2SAT 90–99; BMI 41.6; BMI 42.3
--- NOTE | ~2024-05-10 | US_ITS ---
EXAMINATION: US TRIPLEX LOWER EXTREMITY, BILATERAL CLINICAL INFORMATION: Bilateral lower extremity edema COMPARISON: Bilateral lower extremity venous duplex ultrasound dated 10/03/2023 TECHNIQUE: Color-flow triplex imaging with spectral analysis and compression Doppler were performed on the bilateral lower extremities. FINDINGS: The exam is very limited by skin thickening and extensive subcutaneous edema, with shadowing in the left calf due to skin changes resulting in nonvisualization of the below the knee veins on the left and nonvisualization of the peroneal vein on the right. Respiratory variation, normal compression and augmented flow are noted throughout the bilateral common femoral vein, superficial femoral veins, profunda femoral veins, popliteal veins and right midcalf posterior tibial venous segments. Bilateral Estrada's cysts measure 4.3 x 1.5 x 2.7 cm on the right and 5.5 x 1.3 x 3.3 cm on the left. US/US venous duplex LE BI IMPRESSION: 1. Very limited exam due to extensive subcutaneous edema and skin thickening, worse on the left, resulting in nonvisualization of the below the knee veins on the left and the right peroneal vein. 2. Within the limitations of the exam, no evidence of deep venous thrombosis involving the right lower extremity or above the knee deep venous thrombosis in the left lower extremity. 3. Bilateral Estrada's cysts. Electronically signed by: Barbara Starr MD 05/10/2024 01:41 PM [facility]
--- NOTE | ~2024-05-10 | XR_ITS ---
EXAMINATION: XR CHEST CLINICAL INFORMATION: Dyspnea COMPARISON: None available. TECHNIQUE: Frontal view of the chest was obtained. FINDINGS: Heart size borderline with slight distention of the pulmonary vessels and mild interstitial infiltrate may reflect pneumonia or edema. Cardiomegaly is present. XR/XR chest 1V IMPRESSION: Query mild congestive change. Electronically signed by: Beau Carroll MD 05/10/2024 02:01 PM EST
--- NOTE | 2024-05-10 10:09 | PC.NURSE ---
Arrived via ems with complaints of increased swelling and pain for the last few days. When taking off patients shoes and socks empty heroin packets found in socks. 3 security at bedside and assisted with changing patient into hospital attire. Patient calm and cooperative. States snorts heroin daily- last use yesterday. Bilateral lower legs swollen , red and with some warmth to touch. Upon arrival sating 89-90% on RA placed on 2 liters with improvement
[2024-05-10 10:55] LABS: Basophils Percent Auto 1.2 % (0-2); Eosinophils Absolute Auto 0.2 X10*3/uL (0.0-0.4); Hematocrit 33.8 % (42.0-52.0); Hemoglobin 11.5 g/dl (14.0-18.0); Imm Gran Abs Auto 0.01 X10*3/uL (0.00-0.03); Imm Gran Pct Auto 0.4 % (0.0-0.4); Lymphocytes Absolute Auto 0.4 X10*3/uL (1.2-4.9); Lymphocytes Percent Auto 14.1 % (20-40); MANUAL DIFF FLAG SCAN; Mean Corpuscular Hemoglobin 31.7 pg (27.0-33.0); Mean Corpuscular Volume 93.1 fL (80.0-98.0); Mean Platelet Volume 9.5 fL (9.4-12.4); Monocytes Absolute Auto 0.3 X10*3/uL (0.1-1.2); Monocytes Percent Auto 10.8 % (2-11); Neutrophils Absolute Auto 1.7 x10*3/uL (2.0-8.3); Neutrophils Percent Auto 67.5 % (45-73); Red Blood Count 3.63 X10*6/uL (4.60-5.80); Red Cell Distribution Width 15.6 % (11.0-16.0); SCAN SMEAR FLAG 1
[2024-05-10 10:56] LABS: Platelet Count 69 X10*3/uL (160-400); White Blood Count 2.5 X10*3/uL (4.8-10.8)
[2024-05-10 11:11] LABS: Alanine Aminotransferase 16 U/L (0-40); Albumin Level 3.1 g/dL (3.5-5.0); Alkaline Phosphatase 125 U/L (39-117); Anion Gap 12 (12-20); Aspartate Amino Transferase 34 U/L (5-37); Blood Urea Nitrogen 6 mg/dL (9-16); C Reactive Protein 1.28 mg/dL (< or = 0.50); Calcium 8.7 mg/dL (8.4-10.2); Carbon Dioxide 27 mmol/L (22-29); Chloride 105 mmol/L (96-108); Creatinine Clr Calc Pharmacy 116.9; Estimated Glomerular Filt Rate > 60; Glucose Random 166 mg/dL (60-115); Magnesium 1.7 mg/dL (1.6-2.6); Potassium 3.9 mmol/L (3.3-5.1); Sodium 140 mmol/L (135-145); Total Protein 6.5 g/dL (6.5-8.0)
[2024-05-10 11:13] LABS: SLIDE REVIEW VERIFIED
[2024-05-10 11:32] LABS: Erythrocyte Sedimentation Rate 13 MM/HR (0-15)
--- NOTE | 2024-05-10 12:11 | ED_ITS ---
HPI - General Adult General Chief complaint: General Medical Stated complaint: INC LEG PAIN X 5 DAY,CHRONIC BILAT LEG EDEMA Time Seen by Provider: 05/10/24 12:09 Source: patient Mode of arrival: EMS Limitations: no limitations History of Present Illness HPI narrative: This is a 69-year-old man with a past medical history of hypertension, hepatic cirrhosis complicated by pancytopenia and portal vein thrombosis anticoagulated with Lovenox, polysubstance use, GERD and history of medication noncompliance who presents for evaluation of lower extremity pain. Patient states that he has had lower extremity pain, swelling and redness increasing over the last several days. He states no chest pain. He states no pleuritic chest pain. He reports difficulty walking due to pain and swelling in his legs. He states no exertional chest pain. He reports generalized weakness. He states no abdominal pain, nausea or vomiting. He states no recent falls or trauma. He states no syncope. He states no back pain. He states no urinary symptoms. He states no headache. Related Data Home Medications ?Medication ?Instructions ?Recorded ?Confirmed furosemide 40 mg tablet 40 mg PO DAILY 08/28/20 12/25/23 docusate sodium 100 mg capsule 100 mg PO BID Constipation 08/08/23 12/25/23 acetaminophen 325 mg tablet 650 mg PO Q6H PRN Pain 10/28/23 12/25/23 spironolactone 100 mg tablet 100 mg PO BID 12/25/23 12/25/23 Previous Rx's ?Medication ?Instructions ?Recorded folic acid 1 mg tablet 1 mg PO DAILY #30 tabs 07/26/23 thiamine HCl (vitamin B1) 100 mg 100 mg PO DAILY #30 tabs 07/26/23 tablet lactulose 20 gram/30 mL oral 30 g (45 mL) PO TID #1,200 mL 08/14/23 solution methadone 10 mg/mL oral 40 mg (4 mL) PO DAILY #30 mL 08/14/23 concentrate (Methadose) pantoprazole 40 mg tablet,delayed 40 mg PO BID 30 days #60 tabs 08/14/23 release (Protonix) Allergies Allergy/AdvReac Type Severity Reaction Status Date / Time No Known Allergies Allergy Verified 05/10/24 10:04 [No Known Allergies*] Review of Systems 2 Review of Systems: ROS as per HPI [facility] Past Medical History Medical History Polysubstance abuse Splenomegaly Pancytopenia Portal vein thrombosis Cirrhosis HTN (hypertension) Surgical History S/P TIPS (transjugular intrahepatic portosystemic shunt) Social History Social History Household Members: Other Housing: Unknown / Unable to assess Do you presently have visiting nurse or other home services: No Unable to assess alcohol history related to: Unable to respond Alcohol intake: current Alcohol intake frequency: 0-2 drinks per day Comment: 1:1 sitter Patient Tobacco Use Status: Current everyday Tobacco user Tobacco use type: Cigarette Cigarettes Per Day: 1 Smoked in Last 30 Days: Yes e-Cigarette/Vaping Use: Never Used Second Hand Smoke Exposure: No Use of substances other than those prescribed or required for medical reasons: Yes Substance Use Type: Heroin Substance Use Frequency: Chronic Longstanding Last Used Substance: Days (ago) Advance Directives: Yes Advance Directives on File: Yes Advance Directives Date on File: 08/20/23 service: No Current occupational status: retired Current occupation: rt handed Physical Exam ED Vital Signs: Vital Signs - 24 hr 05/10/24 10:03 05/10/24 13:26 Temperature 98.4 F Pulse Rate 116 H 105 H Respiratory Rate 18 13 Blood Pressure 104/66 Pulse Oximetry 90 L 93 Oxygen Delivery Method Room Air Room Air BMI result Body Mass Index 41.6 Gen: NAD, AOx3 HEENT: NCAT, EOMI, normal conjunctiva CV: RRR, 2+ bilateral DP/PT pulses, bilateral lower extremity pitting edema Pulm: CTAB, no increased work of breathing at rest, no wheezes, diminished lung sounds GI: Soft, NTND, no rebound, guarding or rigidity Neuro: Grossly non focal Skin: Chronic venous stasis changes to the distal lower extremities without erythema/warmth Medical Decision Making Medical Decision Making MDM Narrative: Differential diagnosis includes, but is not limited to dependent edema, congestive heart failure exacerbation, lower extremity cellulitis, deep vein thrombosis. Patient is afebrile and hemodynamically stable. Patient arrived at 89-90% on room air but subsequent improvement with supplemental oxygen via nasal cannula. Exam as above demonstrates peripheral pitting edema. Exam is not consistent or concerning for a cellulitis. I considered antibiotics, but given low suspicion for cellulitis antibiotics were not provided. I have low clinical suspicion for DVT based on history and exam. Regardless, duplex ultrasound of the bilateral lower extremities were obtained, which as below is reassuring. I reviewed interpreted the patient's labs, EKG and chest x-ray as below. Given concern for fluid overload and decompensated heart failure/congestive heart failure exacerbation, patient is provided 40 mg IV Lasix. Patient's case and management is discussed with admitting hospitalist, Dr. Paul, and patient is admitted for further workup and management. Admission/Observation Consideration of admission/observation: Escalation of care including admission/observation considered Consult Healthcare Provider Management of the patient was discussed with: Hospitalist Lab Data MDM Lab Attestation statement: I reviewed the patient's lab results. I independently reviewed and interpreted patient's labs, which demonstrate leukopenia of 2.5 (previous 3.3), chronic stable anemia with hemoglobin 11.5 (previous 12.4), thrombocytopenia with a platelet count 69 (previous 100). Metabolic panel is unremarkable. CRP is elevated at 1.28, but this is nonspecific. BNP is not impressively elevated at 36. 05/10/24 10:48 05/10/24 10:48 Labs: Lab Results 05/10/24 05/10/24 Range/Units 10:48 10:49 WBC 2.5 L (4.8-10.8) X10*3/uL RBC 3.63 L (4.60-5.80) X10*6/uL Hgb 11.5 L (14.0-18.0) g/dl Hct 33.8 L (42.0-52.0) % MCV 93.1 (80.0-98.0) fL MCH 31.7 (27.0-33.0) pg MCHC 34.0 (31.0-36.0) g/dl RDW 15.6 (11.0-16.0) % Plt Count 69 L D (160-400) X10*3/uL MPV 9.5 (9.4-12.4) fL Immature Gran % (Auto) 0.4 (0.0-0.4) % Neut % (Auto) 67.5 (45-73) % Lymph % (Auto) 14.1 L (20-40) % [place] % (Auto) 10.8 (2-11) % Eos % (Auto) 6.0 H (0-4) % Baso % (Auto) 1.2 (0-2) % Lymph # (Auto) 0.4 L (1.2-4.9) X10*3/uL [place] # (Auto) 0.3 (0.1-1.2) X10*3/uL Eos # (Auto) 0.2 (0.0-0.4) X10*3/uL Baso # (Auto) 0.0 (0.0-0.2) X10*3/uL Abs Immat Gran (auto) 0.01 (0.00-0.03) X10*3/uL Absolute Neuts (auto) 1.7 L (2.0-8.3) x10*3/uL Absolute Nucleated RBC 0.000 (0.0-0.012) X10*3/uL Nucleated RBC % (auto) 0.0 (0.0-0.2) /100WBC Smear Tech's Comments VERIFIED ESR 13 (0-15) MM/HR Sodium 140 (135-145) mmol/L Potassium 3.9 (3.3-5.1) mmol/L Chloride 105 (96-108) mmol/L Carbon Dioxide 27 (22-29) mmol/L Anion Gap 12 (12-20) BUN 6 L (9-16) mg/dL Creatinine 0.68 (0.5-1.4) mg/dL Estim Creat Clear Calc 116.9 Estimated GFR > 60 Random Glucose 166 H (60-115) mg/dL Calcium 8.7 (8.4-10.2) mg/dL Magnesium 1.7 (1.6-2.6) mg/dL Total Bilirubin 1.0 (0.0-1.0) mg/dL AST 34 (5-37) U/L ALT 16 (0-40) U/L Alkaline Phosphatase 125 H (39-117) U/L C-Reactive Protein 1.28 H (< or = 0.50) mg/dL B-Natriuretic Peptide 36 (<100) pg/mL Total Protein 6.5 (6.5-8.0) g/dL Albumin 3.1 L (3.5-5.0) g/dL Independent Interpretation I performed an independent interpretation of an: EKG Interpretation: I independently reviewed and interpreted the patient's EKG, which demonstrates a sinus tachycardia at 106 beats per minute, NH 114, QRS 108, QTC 451, no STEMI. Radiology Impression Discussion of test interpretation with radiology: I have reviewed the radiologist's reading. Radiologist Impression: US/US venous duplex LE BI IMPRESSION: 1. Very limited exam due to extensive subcutaneous edema and skin thickening, worse on the left, resulting in nonvisualization of the below the knee veins on the left and the right peroneal vein. 2. Within the limitations of the exam, no evidence of deep venous thrombosis involving the right lower extremity or above the knee deep venous thrombosis in the left lower extremity. 3. Bilateral Estrada's cysts. Electronically signed by: Barbara Starr MD 05/10/2024 01:41 PM EST RP Dictated By: Molly Starr Signed By: <Electronically signed by Molly Starr in OV> 05/10/24 1341 XR/XR chest 1V IMPRESSION: Query mild congestive change. Electronically signed by: Beau Carroll MD 05/10/2024 02:01 PM EST RP Dictated By: Beau Carroll MD Signed By: <Electronically signed by Beau Carroll MD in [place]> 05/10/24 1401 Discharge Plan Discharge Clinical Impression: Congestive heart failure Patient Disposition: Admitted As Inpatient Prescriptions: No Action folic acid 1 mg tablet 1 mg PO DAILY Qty: 30 0RF thiamine HCl (vitamin B1) 100 mg tablet 100 mg PO DAILY Qty: 30 0RF docusate sodium 100 mg Capsule 100 mg PO BID methadone [Methadose] 10 mg/mL Concentrate 40 mg PO DAILY Qty: 30 0RF pantoprazole [Protonix] 40 mg tablet,delayed release (DR/EC) 40 mg PO BID 30 Days Qty: 60 0RF lactulose 20 gram/30 mL Solution 30 g PO TID Qty: 1200 0RF spironolactone 100 mg tablet 100 mg PO BID acetaminophen 325 mg Tablet 650 mg PO Q6H PRN (Reason: Pain) furosemide 40 mg tablet 40 mg PO DAILY Print Language: [place]
--- NOTE | 2024-05-10 12:15 | ECG_ITS ---
Test Reason : SOB Blood Pressure : / mmHG Vent. Rate : 106 BPM Atrial Rate : 106 BPM P-R Int : 114 ms QRS Dur : 108 ms QT Int : 340 ms P-R-T Axes : 000 -51 -05 degrees QTc Int : 451 ms Sinus tachycardia Left anterior fascicular block Possible Lateral infarct , age undetermined Abnormal ECG When compared with ECG of 24-DEC-2023 12:50, Incomplete right bundle branch block is no longer Present Borderline criteria for Lateral infarct are now Present Referred By: Gerhard Mcconnell Electronically Signed By:FRAN KAPLAN MD
[2024-05-10 14:25] LABS: B Type Natriuretic Peptide 36 pg/mL (<100)
--- NOTE | 2024-05-10 15:17 | PHA.MEDREC ---
Addendum entered by Hesham Kelly RPh 05/10/24 15:58: Med rec was reviewed by Amy. Original Note: Pharmacy Consult ? Medication Reconciliation Pharmacy has completed the medication reconciliation. Confirmed medications with patient. Patient confirmed he is no longer taking the Furosemide 40mg tab and when I asked more on it since it was filled 04/12 for 30 days he stated he has not taken that medication in atleast 2 months. He confirmed he is taking Lactulose 30gm TID as needed for constipation.
[2024-05-10] MEDS: Furosemide 40 MG/4 ML VIAL IVPUSH (15:29)
[2024-05-10] MEDS: Spironolactone 25 MG TABLET 50 MG PO (17:07)
[2024-05-10] MEDS: Omeprazole 40 MG CAPSULE.DR PO (17:07)
[2024-05-10] MEDS: Heparin Sodium,Porcine 5,000 UNIT/ML VIAL 5000 UNIT SUBCUT ×2 (17:08→23:49)
[2024-05-10] MEDS: 0.9 % Sodium Chloride Flush 3 ML SYRINGE IVFLUSH ×2 (17:08→20:38)
[2024-05-10 17:27] LABS: Appearance Urine Clear; Color Urine Yellow; Glucose Urine UA Negative (Negative); Leukocyte Esterase Urine Trace (Negative); Nitrite Urine Negative (Negative); PH 6.5 (5.0-9.0); Specific Gravity - Urine <= 1.005 (1.005-1.025); UMIC TRIGGER UACC YES; Urine Blood Negative (Negative); Urine Ketones Negative (Negative); Urine Protein Negative (Neg-Trace)
--- NOTE | 2024-05-10 17:27 | P.HPHOSP_ITS ---
History of Present Illness Date of Service: 05/10/24 Chief Complaint: Bilateral leg pain and difficulty with ambulation 69-year-old male with past medical history of hypertension, hepatic cirrhosis, pancytopenia, portal venous thrombosis, polysubstance use, GERD in long history of medication compliance was picked up by EMS from [facility] in [place] since patient is homeless, due to increased redness and bilateral lower extremity swelling and pain with ambulation, patient denies associated shortness of breath, no fevers, no chills, denies nausea, no vomiting, no diarrhea or abdominal discomfort on arrival he was noted to have tachycardia 116, pulse ox 90% on room air, CBC showed WBC 2.5, hematocrit 33.8 and a platelet count of 69 close to baseline, normal electrolytes and renal function, elevated blood sugar 166, normal liver enzymes, CRP 1.28, BNP 36, albumin of 3.1, venous Doppler study bilateral lower extremity showed no DVT but showed significant subcutaneous edema, chest x-ray showed slight distention of pulmonary vessels and mild interstitial infiltrate, cardiomegaly, raise concern for mild congestive changes, patient treated in the ED with 1 dose of IV Lasix and now being admitted to [facility] due to worsening bilateral lower extremity edema and difficulty in ambulation. In the ED when taking of patient shoes and socks empty heroin packets were found in the socks patient admitted to snorting heroin daily last use yesterday. Review of Systems 2 Review of Systems: General no headache no dizziness no fever chills. CVS no chest pain, no palpitation. Respiratory no cough no sob Gastrointestinal no nausea, no vomiting, no abdominal pain no urgency, no frequency Skin chronic mild lower extremity hyperemia All other symptoms reviewed and are negative [facility] Medical History Polysubstance abuse Splenomegaly Pancytopenia Portal vein thrombosis Cirrhosis HTN (hypertension) Surgical History S/P TIPS (transjugular intrahepatic portosystemic shunt) Social History Household Members: Other Housing: Unknown / Unable to assess Do you presently have visiting nurse or other home services: No Unable to assess alcohol history related to: Unable to respond Alcohol intake: current Alcohol intake frequency: 0-2 drinks per day Comment: 1:1 sitter Patient Tobacco Use Status: Current everyday Tobacco user Tobacco use type: Cigarette Cigarettes Per Day: 1 Smoked in Last 30 Days: Yes e-Cigarette/Vaping Use: Never Used Second Hand Smoke Exposure: No Use of substances other than those prescribed or required for medical reasons: Yes Substance Use Type: Heroin Substance Use Frequency: Chronic Longstanding Last Used Substance: Days (ago) Advance Directives: Yes Advance Directives on File: Yes Advance Directives Date on File: 08/20/23 service: No Current occupational status: retired Current occupation: rt handed Meds Allergies Allergy/AdvReac Type Severity Reaction Status Date / Time No Known Allergies Allergy Verified 05/10/24 10:04 [No Known Allergies*] Active Medications: Current Medications Acetaminophen (Acetaminophen 325 Mg Tablet) 650 mg PO Q6H PRN PRN Reason: Pain, Mild (Pain Scale 1-3), fever or headache Calcium Carbonate (Calcium Carbonate 750 Mg Tab.Chew) 750 mg PO Q4H PRN PRN Reason: Heartburn Furosemide (Furosemide 40 Mg/4 Ml Vial) 40 mg IVPUSH DAILY [facility]; Protocol Heparin Sodium (Porcine) (Heparin Sodium,Porcine 5,000 Unit/Ml Vial) 5,000 unit SUBCUT Q8H [facility] Last Admin: 05/10/24 17:08 Dose: 5,000 unit Lactulose (Lactulose 20 Gm/30 Ml Solution) 30 gm PO TID PRN PRN Reason: Constipation Magnesium Hydroxide (Milk Of Magnesia 30 Ml Oral.Susp) 30 ml PO DAILY PRN PRN Reason: Constipation Melatonin (Melatonin 3 Mg Tablet) 6 mg PO BEDTIME PRN PRN Reason: Insomnia Omeprazole (Omeprazole 40 Mg Capsule.Dr) 40 mg PO BID@0630,1630 [facility] Last Admin: 05/10/24 17:07 Dose: 40 mg Ondansetron HCl (Ondansetron Hcl 4 Mg/2 Ml Vial) 4 mg IVPUSH Q8H PRN PRN Reason: Nausea and Vomiting Sodium Chloride (0.9 % Sodium Chloride Flush 3 Ml Syringe) 3 ml IVFLUSH QSHIFT [facility] Last Admin: 05/10/24 17:08 Dose: 3 ml Spironolactone (Spironolactone 25 Mg Tablet) 50 mg PO BID@0900,1800 [facility]; Protocol Last Admin: 05/10/24 17:07 Dose: 50 mg Thiamine HCl (Thiamine Hcl 100 Mg Tablet) 100 mg PO DAILY [facility] Home Medications ?Medication ?Instructions ?Recorded ?Confirmed ?Last Taken ?Type acetaminophen 325 mg tablet 650 mg PO Q6H PRN Pain 10/28/23 05/10/24 1 Week Ago History ~05/03/24 spironolactone 100 mg tablet 100 mg PO BID 12/25/23 05/10/24 1 Week Ago History ~05/03/24 lactulose 20 gram/30 mL oral 30 g PO TID PRN Constipation 05/10/24 05/10/24 1 Week Ago History solution ~05/03/24 pantoprazole 40 mg tablet,delayed 40 mg PO BID@0630,1630 05/10/24 05/10/24 1 Week Ago History release (Protonix) ~05/03/24 Physical Exam 2 Vital Signs and Narrative: Vital Signs: Last Vital Signs Temp 98.7 F 05/10/24 17:11 Pulse 87 05/10/24 17:11 Resp 18 05/10/24 17:11 BP 112/64 05/10/24 17:11 Pulse Ox 96 05/10/24 17:11 O2 Del Method Room Air 05/10/24 17:11 O2 Flow Rate 2 05/10/24 16:26 BMI result Body Mass Index 41.6 Const: Other: General awake alert x3, resting comfortably in no acute distress. Moist mucous membrane Anicteric sclera Neck supple no JVD. CVS regular rate rhythm, Respiratory lungs clear to auscultation, no respiratory distress, no wheeze, no crackles Gastrointestinal abdomen soft, non tender, bowel sounds audible, no guarding , no rigidity. Extremities bilateral lower extremity mild hyperemia and edema, chronic venous stasis changes Neuro non focal Psych appropriate affect Results Labs 05/10/24 10:48 05/10/24 10:48 Labs: Laboratory Results - last 24 hr 05/10/24 05/10/24 10:48 10:49 MCV 93.1 MCH 31.7 MCHC 34.0 RDW 15.6 Plt Count 69 L D MPV 9.5 Immature Gran % (Auto) 0.4 Neut % (Auto) 67.5 Lymph % (Auto) 14.1 L [place] % (Auto) 10.8 Eos % (Auto) 6.0 H Baso % (Auto) 1.2 Lymph # (Auto) 0.4 L [place] # (Auto) 0.3 Eos # (Auto) 0.2 Baso # (Auto) 0.0 Abs Immat Gran (auto) 0.01 Absolute Neuts (auto) 1.7 L Absolute Nucleated RBC 0.000 Nucleated RBC % (auto) 0.0 Smear Tech's Comments VERIFIED ESR 13 Anion Gap 12 Estim Creat Clear Calc 116.9 Estimated GFR > 60 Random Glucose 166 H Calcium 8.7 Magnesium 1.7 Total Bilirubin 1.0 AST 34 ALT 16 Alkaline Phosphatase 125 H C-Reactive Protein 1.28 H B-Natriuretic Peptide 36 Total Protein 6.5 Albumin 3.1 L Imaging Radiologist's Impressions: Impressions Chest X-Ray 05/10/24 12:15 IMPRESSION: Query mild congestive change. Electronically signed by: Beau Carroll MD 05/10/2024 02:01 PM EST RP Venous Duplex 05/10/24 12:40 IMPRESSION: 1. Very limited exam due to extensive subcutaneous edema and skin thickening, worse on the left, resulting in nonvisualization of the below the knee veins on the left and the right peroneal vein. 2. Within the limitations of the exam, no evidence of deep venous thrombosis involving the right lower extremity or above the knee deep venous thrombosis in the left lower extremity. 3. Bilateral Estrada's cysts. Electronically signed by: Barbara Starr MD 05/10/2024 01:41 PM EST RP Assessment and Plan (1) Alcohol use disorder: Status: Acute (2) Active substance abuse: Status: Acute (3) Localized swelling of both lower legs: Status: Acute Plan 68-year-old male with a PMH significant for?HTN, hepatic cirrhosis complicated by pancytopenia and portal vein thrombosis , polysubstance use, GERD, and long hx of medication noncompliance who presents to the ED for evaluation of bilateral lower extremity swelling and pain with difficulty in ambulation Bilateral lower extremity pain swelling and mild hyperemia Findings likely related to chronic venous stasis and chronic edema No evidence of cellulitis Will treat with IV Lasix, resume spironolactone 50 mg b.i.d., home dose 100 mg b.i.d. likely noncompliant with medications Keep legs elevated PT Acute hypoxia Likely due to deconditioning, less likely CHF Not on home oxygen wean O2 as tolerated Continue Lasix as above History of decompensated Hepatic cirrhosis with pancytopenia/portal vein thrombosis/portal hypertensive gastropathy CBC unchanged Not on anticoagulation Continue Prilosec b.i.d. Continue lactulose/diuretics/strongly advised to abstain from alcohol Alcohol use disorder As per patient he drinks alcohol couple beers a day denies alcohol withdrawal symptoms of shakiness, no tremors, no hallucination Place on CIWA protocol/thiamine/folic acid Opiate use disorder Urine toxicology positive for opiates and fentanyl Addiction Team consult DVT prophylaxis subQ heparin t.i.d. Full code In my clinical judgment patient request continued inpatient hospitalization for management of bilateral lower extremity pain swelling and hyperemia will require PT evaluation and safe disposition. Quality Stroke Does the patient have a stroke diagnosis?: No VTE Prior VTE?: No VTE Risk Level:: Medical - moderate - high VTE Device Contraindication: Treatment Not Indicated VTE Drug Contraindication: N/A - Med Ordered
[2024-05-10 17:38] LABS: Amphetamine Screen Urine Not Detected (Not Detect); Barbiturates, Urine Not Detected (Not Detect); Benzodiazepines Screen Urine Not Detected (Not Detect); Buprenorphine Scr Not Detected (Not Detect); Cannabinoid Screen Urine Not Detected (Not Detect); Cocaine Screen Urine Not Detected (Not Detect); Fentanyl, urine POSITIVE (Not Detect); Methadone Screen, Urine Not Detected (Not Detect); Opiate Screen Urine POSITIVE (Not Detect); Oxycodone Screen Urine Not Detected (Not Detect); Phencyclidine Screen Urine Not Detected (Not Detect)
[2024-05-10 17:41] LABS: Bacteria Urine None Seen (None Seen); Hyaline Casts Urine 0-2 /LPF (0-2); RBC Urine 0-2 /HPF (0-2); Squamous Epithelial Cell Urine 0-2 /HPF (0-2); WBC Urine 0-5 /HPF (0-5)
--- NOTE | 2024-05-10 17:51 | PC.NURSE ---
Patient voiding into bedside urinal. Denies pain or discomfort. No longer needing use of 02 sating 97% on ra.
[2024-05-10] MEDS: Acetaminophen 325 MG TABLET 650 MG PO (20:36)
[2024-05-10] MEDS: Melatonin 3 MG TABLET 6 MG PO (20:36)
[2024-05-11] VITALS (8 sets, daily range): BP systolic 109–128; BP diastolic 59–76; PULSE 70–79; RESP 18–20; TEMP 36.4–36.9; O2SAT 93–96
[2024-05-11] MEDS: Acetaminophen 325 MG TABLET 650 MG PO ×4 (00:48→21:22)
[2024-05-11] MEDS: Omeprazole 40 MG CAPSULE.DR PO ×2 (05:49→17:32)
[2024-05-11 06:50] LABS: Estimated Average Glucose 123 mg/dL; Hemoglobin A1C 114.1054 umol/L; Hemoglobin A1c % 5.9 % (<6.0); Total Hemoglobin (HGBA1C) 2752.6722 umol/L
[2024-05-11 06:55] LABS: Anion Gap 9 (12-20); Blood Urea Nitrogen 8 mg/dL (9-16); Calcium 8.7 mg/dL (8.4-10.2); Carbon Dioxide 31 mmol/L (22-29); Chloride 104 mmol/L (96-108); Creatinine Clr Calc Pharmacy 125.3; Estimated Glomerular Filt Rate > 60; Glucose Random 162 mg/dL (60-115); Potassium 3.9 mmol/L (3.3-5.1); Sodium 140 mmol/L (135-145)
[2024-05-11] MEDS: Folic Acid 1 MG TABLET PO (07:09)
[2024-05-11] MEDS: Spironolactone 25 MG TABLET 50 MG PO ×2 (07:09→17:32)
[2024-05-11] MEDS: Thiamine HCL 100 MG TABLET PO (07:09)
[2024-05-11] MEDS: Heparin Sodium,Porcine 5,000 UNIT/ML VIAL 5000 UNIT SUBCUT ×2 (07:10→17:32)
[2024-05-11] MEDS: 0.9 % Sodium Chloride Flush 3 ML SYRINGE IVFLUSH ×2 (07:10→15:17)
[2024-05-11] MEDS: Furosemide 40 MG/4 ML VIAL IVPUSH ×2 (07:10→17:32)
[2024-05-11 08:05] LABS: Magnesium 1.9 mg/dL (1.6-2.6)
--- NOTE | 2024-05-11 11:03 | MHC.CM.PN ---
PT REPORTS HE IS CURRENTLY HOMELESS HE SAYS HE HAS NOT BEEN ON METHADONE FOR ABOUT A MONTH, AND HOPES HE CAN STAY OFF OF IT BUT WILL DISCUSS WITH RECOVERY TEAM NEEDED PT SAYS HE WAS USING A W/C, HOWEVER HAD MORE DIFFICULTY WALKING AFTER USING IT, SO HAS BEEN TRYING TO USE A WALKER OR CANE PT KNOWS HE WILL NEED STR AND MAY NEED TO GO TO [place] DUE TO RECENT SUBSTANCE USE HCP ON FILE PT DOES NOT HAVE A PCP IMM DELIVERED DCP: STR, REFERRALS MADE BLS TRANSPORT
--- NOTE | 2024-05-11 11:26 | HO.PM.IMPN ---
Subjective Subjective Date of Service: 05/11/24 Interval History: c/o painful leg edema, weakness No hematemesis, hematochezia, or melena Review of Systems Review of Systems: Yes all other systems are reviewed and are negative Physical Exam Vital Signs: Vital Signs: Last Vital Signs Temp 97.5 F 05/11/24 07:26 Pulse 71 05/11/24 07:26 Resp 18 05/11/24 07:26 BP 125/71 05/11/24 07:26 Pulse Ox 96 05/11/24 07:26 O2 Del Method Room Air 05/11/24 07:26 O2 Flow Rate 2 05/10/24 16:26 BMI result Body Mass Index 42.3 Gen: in no acute distress HEENT: sclera anicteric, moist mucus membranes Neck: supple Lungs: clear to auscultation bilaterally Heart: regular rate and rhythm, no murmurs Abd: soft, non-tender, non-distended Ext: 3+ bilateral edema with chronic venous stasis skin changes Skin: warm/well-perfused Neuro: alert and oriented x3, no focal findings Psych: appropriate affect Objective Data Active Medications Acetaminophen (Acetaminophen 325 Mg Tablet) 650 mg PO Q6H PRN PRN Reason: Pain, Mild (Pain Scale 1-3), fever or headache Last Admin: 05/11/24 07:09 Dose: 650 mg Documented By: SERENITY Calcium Carbonate (Calcium Carbonate 750 Mg Tab.Chew) 750 mg PO Q4H PRN PRN Reason: Heartburn Folic Acid (Folic Acid 1 Mg Tablet) 1 mg PO DAILY [facility] Last Admin: 05/11/24 07:09 Dose: 1 mg Documented By: SERENITY Furosemide (Furosemide 40 Mg/4 Ml Vial) 40 mg IVPUSH BID@0900,1800 [facility]; Protocol Heparin Sodium (Porcine) (Heparin Sodium,Porcine 5,000 Unit/Ml Vial) 5,000 unit SUBCUT Q8H [facility] Last Admin: 05/11/24 07:10 Dose: 5,000 unit Documented By: SERENITY Lactulose (Lactulose 20 Gm/30 Ml Solution) 30 gm PO TID PRN PRN Reason: Constipation Magnesium Hydroxide (Milk Of Magnesia 30 Ml Oral.Susp) 30 ml PO DAILY PRN PRN Reason: Constipation Melatonin (Melatonin 3 Mg Tablet) 6 mg PO BEDTIME PRN PRN Reason: Insomnia Last Admin: 05/10/24 20:36 Dose: 6 mg Documented By: JEFFREY Methadone HCl (Methadone Hcl 20 Mg/2 Ml Oral.Conc) 10 mg PO Q4H PRN PRN Reason: Opiate Withdrawal Omeprazole (Omeprazole 40 Mg Capsule.Dr) 40 mg PO BID@0630,1630 [facility] Last Admin: 05/11/24 05:49 Dose: 40 mg Documented By: JEFFREY Ondansetron HCl (Ondansetron Hcl 4 Mg/2 Ml Vial) 4 mg IVPUSH Q8H PRN PRN Reason: Nausea and Vomiting Sodium Chloride (0.9 % Sodium Chloride Flush 3 Ml Syringe) 3 ml IVFLUSH QSHIFT [facility] Last Admin: 05/11/24 07:10 Dose: 3 ml Documented By: SERENITY Spironolactone (Spironolactone 25 Mg Tablet) 50 mg PO BID@0900,1800 [facility]; Protocol Last Admin: 05/11/24 07:09 Dose: 50 mg Documented By: SERENITY Thiamine HCl (Thiamine Hcl 100 Mg Tablet) 100 mg PO DAILY [facility] Last Admin: 05/11/24 07:09 Dose: 100 mg Documented By: SERENITY Labs 05/10/24 10:48 05/11/24 05:40 Labs: Laboratory Results - last 24 hr 05/10/24 05/10/24 05/10/24 10:48 10:49 17:05 ESR 13 Anion Gap Estim Creat Clear Calc Estimated GFR Random Glucose Estimat Average Glucose Hemoglobin A1c % Calcium Magnesium B-Natriuretic Peptide 36 Urine Color Urine Appearance Urine pH Ur Specific [place] Urine Protein Urine Glucose (UA) Urine Ketones Urine Blood Urine Nitrite Ur Leukocyte Esterase Urine RBC Urine WBC Ur Squamous Epith Cells Urine Bacteria Hyaline Casts Urine Opiates Screen POSITIVE H Ur Buprenorphine Scrn Not Detected Ur Oxycodone Screen Not Detected Urine Methadone Screen Not Detected Urine Fentanyl Screen POSITIVE H Ur Barbiturates Screen Not Detected Ur Phencyclidine Scrn Not Detected Ur Amphetamines Screen Not Detected U Benzodiazepines Scrn Not Detected Urine Cocaine Screen Not Detected U Marijuana (THC) Screen Not Detected 05/10/24 05/11/24 17:07 05:40 ESR Anion Gap 9 L Estim Creat Clear Calc 125.3 Estimated GFR > 60 Random Glucose 162 H Estimat Average Glucose 123 Hemoglobin A1c % 5.9 Calcium 8.7 Magnesium 1.9 B-Natriuretic Peptide Urine Color Yellow Urine Appearance Clear Urine pH 6.5 Ur Specific [place] <= 1.005 Urine Protein Negative Urine Glucose (UA) Negative Urine Ketones Negative Urine Blood Negative Urine Nitrite Negative Ur Leukocyte Esterase Trace H Urine RBC 0-2 Urine WBC 0-5 Ur Squamous Epith Cells 0-2 Urine Bacteria None Seen Hyaline Casts 0-2 Urine Opiates Screen Ur Buprenorphine Scrn Ur Oxycodone Screen Urine Methadone Screen Urine Fentanyl Screen Ur Barbiturates Screen Ur Phencyclidine Scrn Ur Amphetamines Screen U Benzodiazepines Scrn Urine Cocaine Screen U Marijuana (THC) Screen Assessment and Plan (1) Polysubstance abuse: Status: Acute Plan d2 for 68yo M with decompensated cirrhosis s/p TIPS, ongoing polysubstance abuse presenting with severe leg edema causing difficulty ambulating leg edema due to decompensated cirrhosis + chronic venous stasis - bid IV furosemide, PO spironolactone acute hypoxic resp faioure - weaned off O2; resolved decompensated cirrhosis with hx portal vein thrombosis, portal HTN gastropathy, pancytopenia; hx TIPS - continue lactulose, importance of sobriety counseled AUD - prn CIWA, thiamine, folate OUD - Addiction Medicine consult; HIV/HCV screening VTE ppx - UFH dispo - STR In my clinical judgment, the patient requires continued inpatient hospitalization for the following reasons: IV diuresis, placement Total time managing care of this patient today: 40 minutes. Quality Stroke Does the patient have a stroke diagnosis?: No VTE Prior VTE?: No VTE Risk Level:: Medical - moderate - high VTE Device Contraindication: Treatment Not Indicated VTE Drug Contraindication: N/A - Med Ordered
--- NOTE | 2024-05-11 14:37 | HO.ADDICT_ITS ---
History of Present Illness Date of Service: 05/11/2024 Chief Complaint: Bilateral leg swelling Reason for Consult: CHRISTOPHER Sources of Information: patient interviewed and chart reviewed HPI Narrative: Patient is a 69 year old [place]utanese speaking male with history of AUD and OUD, medically admitted with worsening lower extremity edema and difficulty with ambulation ED and admission notes reviewed UDS +opiates and fentanyl CIWA score of 1 Patient seen in room 369. He is awake, alert, pleasant and engaged in interview--although providing very brief responses He denies any withdrawal sx at time of evaluation He states he has been using 1-2 bags of fentanyl daily. Previous admission patient was enagegd with OTP and prescribed methadone 40mg daily--patient reports he is not longer taking methadone. Unable to recall when last dose was or why he stopped medication In terms of alcohol reports 1-2 beers a day No tremor, diaphoresis, restlessness observed. Diagnostics Vital Signs (24Hr): Vital Signs - 24 hr 05/10/24 15:29 05/10/24 16:26 05/10/24 17:11 Temperature 98.9 F 98.7 F Pulse Rate 83 87 Respiratory Rate 18 18 Blood Pressure 132/76 124/76 112/64 Pulse Oximetry 99 96 Oxygen Delivery Method Nasal Cannula Room Air Oxygen Flow Rate 2 05/10/24 18:58 05/10/24 20:39 05/11/24 03:10 Temperature 98.5 F 98.7 F 97.9 F Pulse Rate 83 82 70 Respiratory Rate 10 L 18 18 Blood Pressure 121/50 L 138/79 109/59 L Pulse Oximetry 95 95 93 Oxygen Delivery Method Room Air Room Air Room Air Oxygen Flow Rate 05/11/24 07:09 05/11/24 07:10 05/11/24 07:26 Temperature 97.5 F Pulse Rate 71 Respiratory Rate 18 Blood Pressure 125/71 125/71 125/71 Pulse Oximetry 96 Oxygen Delivery Method Room Air Oxygen Flow Rate BMI result Body Mass Index 42.3 Labs 05/10/24 10:48 05/11/24 05:40 Labs: Laboratory Results - last 48 hr 05/10/24 05/10/24 05/10/24 10:48 10:49 17:05 WBC 2.5 L RBC 3.63 L Hgb 11.5 L Hct 33.8 L MCV 93.1 MCH 31.7 MCHC 34.0 RDW 15.6 Plt Count 69 L D MPV 9.5 Immature Gran % (Auto) 0.4 Neut % (Auto) 67.5 Lymph % (Auto) 14.1 L [place] % (Auto) 10.8 Eos % (Auto) 6.0 H Baso % (Auto) 1.2 Lymph # (Auto) 0.4 L [place] # (Auto) 0.3 Eos # (Auto) 0.2 Baso # (Auto) 0.0 Abs Immat Gran (auto) 0.01 Absolute Neuts (auto) 1.7 L Absolute Nucleated RBC 0.000 Nucleated RBC % (auto) 0.0 Smear Tech's Comments VERIFIED ESR 13 Sodium 140 Potassium 3.9 Chloride 105 Carbon Dioxide 27 Anion Gap 12 BUN 6 L Creatinine 0.68 Estim Creat Clear Calc 116.9 Estimated GFR > 60 Random Glucose 166 H Estimat Average Glucose Hemoglobin A1c % Calcium 8.7 Magnesium 1.7 Total Bilirubin 1.0 AST 34 ALT 16 Alkaline Phosphatase 125 H C-Reactive Protein 1.28 H B-Natriuretic Peptide 36 Total Protein 6.5 Albumin 3.1 L Urine Color Urine Appearance Urine pH Ur Specific [place] Urine Protein Urine Glucose (UA) Urine Ketones Urine Blood Urine Nitrite Ur Leukocyte Esterase Urine RBC Urine WBC Ur Squamous Epith Cells Urine Bacteria Hyaline Casts Urine Opiates Screen POSITIVE H Ur Buprenorphine Scrn Not Detected Ur Oxycodone Screen Not Detected Urine Methadone Screen Not Detected Urine Fentanyl Screen POSITIVE H Ur Barbiturates Screen Not Detected Ur Phencyclidine Scrn Not Detected Ur Amphetamines Screen Not Detected U Benzodiazepines Scrn Not Detected Urine Cocaine Screen Not Detected U Marijuana (THC) Screen Not Detected 05/10/24 05/11/24 17:07 05:40 WBC RBC Hgb Hct MCV MCH MCHC RDW Plt Count MPV Immature Gran % (Auto) Neut % (Auto) Lymph % (Auto) [place] % (Auto) Eos % (Auto) Baso % (Auto) Lymph # (Auto) [place] # (Auto) Eos # (Auto) Baso # (Auto) Abs Immat Gran (auto) Absolute Neuts (auto) Absolute Nucleated RBC Nucleated RBC % (auto) Smear Tech's Comments ESR Sodium 140 Potassium 3.9 Chloride 104 Carbon Dioxide 31 H Anion Gap 9 L BUN 8 L Creatinine 0.64 Estim Creat Clear Calc 125.3 Estimated GFR > 60 Random Glucose 162 H Estimat Average Glucose 123 Hemoglobin A1c % 5.9 Calcium 8.7 Magnesium 1.9 Total Bilirubin AST ALT Alkaline Phosphatase C-Reactive Protein B-Natriuretic Peptide Total Protein Albumin Urine Color Yellow Urine Appearance Clear Urine pH 6.5 Ur Specific [place] <= 1.005 Urine Protein Negative Urine Glucose (UA) Negative Urine Ketones Negative Urine Blood Negative Urine Nitrite Negative Ur Leukocyte Esterase Trace H Urine RBC 0-2 Urine WBC 0-5 Ur Squamous Epith Cells 0-2 Urine Bacteria None Seen Hyaline Casts 0-2 Urine Opiates Screen Ur Buprenorphine Scrn Ur Oxycodone Screen Urine Methadone Screen Urine Fentanyl Screen Ur Barbiturates Screen Ur Phencyclidine Scrn Ur Amphetamines Screen U Benzodiazepines Scrn Urine Cocaine Screen U Marijuana (THC) Screen Imaging Radiology Impressions: ITS Impressions Chest X-Ray 05/10/24 12:15 IMPRESSION: Query mild congestive change. Electronically signed by: Beau Carroll MD 05/10/2024 02:01 PM EST RP Venous Duplex 05/10/24 12:40 IMPRESSION: 1. Very limited exam due to extensive subcutaneous edema and skin thickening, worse on the left, resulting in nonvisualization of the below the knee veins on the left and the right peroneal vein. 2. Within the limitations of the exam, no evidence of deep venous thrombosis involving the right lower extremity or above the knee deep venous thrombosis in the left lower extremity. 3. Bilateral Estrada's cysts. Electronically signed by: Barbara Starr MD 05/10/2024 01:41 PM EST RP Mental Status Exam Mental Status Exam Level of Consciousness: Awake, Appropriate and Alert Patient Behavior: Appropriate and Guarded Mood Description: Calm Affect Description: Calm Medications Medications Current Medications Acetaminophen (Acetaminophen 325 Mg Tablet) 650 mg PO Q6H PRN PRN Reason: Pain, Mild (Pain Scale 1-3), fever or headache Last Admin: 05/11/24 07:09 Dose: 650 mg Calcium Carbonate (Calcium Carbonate 750 Mg Tab.Chew) 750 mg PO Q4H PRN PRN Reason: Heartburn Folic Acid (Folic Acid 1 Mg Tablet) 1 mg PO DAILY [facility] Last Admin: 05/11/24 07:09 Dose: 1 mg Furosemide (Furosemide 40 Mg/4 Ml Vial) 40 mg IVPUSH BID@0900,1800 [facility]; Protocol Heparin Sodium (Porcine) (Heparin Sodium,Porcine 5,000 Unit/Ml Vial) 5,000 unit SUBCUT Q8H [facility] Last Admin: 05/11/24 07:10 Dose: 5,000 unit Lactulose (Lactulose 20 Gm/30 Ml Solution) 30 gm PO TID PRN PRN Reason: Constipation Magnesium Hydroxide (Milk Of Magnesia 30 Ml Oral.Susp) 30 ml PO DAILY PRN PRN Reason: Constipation Melatonin (Melatonin 3 Mg Tablet) 6 mg PO BEDTIME PRN PRN Reason: Insomnia Last Admin: 05/10/24 20:36 Dose: 6 mg Methadone HCl (Methadone Hcl 20 Mg/2 Ml Oral.Conc) 10 mg PO Q4H PRN PRN Reason: Opiate Withdrawal Omeprazole (Omeprazole 40 Mg Capsule.Dr) 40 mg PO BID@0630,1630 [facility] Last Admin: 05/11/24 05:49 Dose: 40 mg Ondansetron HCl (Ondansetron Hcl 4 Mg/2 Ml Vial) 4 mg IVPUSH Q8H PRN PRN Reason: Nausea and Vomiting Sodium Chloride (0.9 % Sodium Chloride Flush 3 Ml Syringe) 3 ml IVFLUSH QSHIFT [facility] Last Admin: 05/11/24 07:10 Dose: 3 ml Spironolactone (Spironolactone 25 Mg Tablet) 50 mg PO BID@0900,1800 [facility]; Protocol Last Admin: 05/11/24 07:09 Dose: 50 mg Thiamine HCl (Thiamine Hcl 100 Mg Tablet) 100 mg PO DAILY [facility] Last Admin: 05/11/24 07:09 Dose: 100 mg Allergies Allergies Allergy/AdvReac Type Severity Reaction Status Date / Time No Known Allergies Allergy Verified 05/10/24 10:04 [No Known Allergies*] Assessment & Plan Assessment & Plan (1) Opioid use disorder: Status: Acute Code(s): F11.90 - Opioid use, unspecified, uncomplicated Assessment and Plan: * methadone 10mg PRN as patient is not displaying or reporting withdrwal sx * follow up in AM Total time managing care of this patient today __25__ minutes. PMFSH Past Medical History Medical History Polysubstance abuse Splenomegaly Pancytopenia Portal vein thrombosis Cirrhosis HTN (hypertension) Surgical History Surgical History S/P TIPS (transjugular intrahepatic portosystemic shunt) Social History Social History Household Members: None Housing: Homeless Do you presently have visiting nurse or other home services: No Unable to assess alcohol history related to: Unable to respond Alcohol intake: current Alcohol intake frequency: 0-2 drinks per day Comment: 1:1 sitter Patient Tobacco Use Status: Current everyday Tobacco user Tobacco use type: Cigarette Cigarettes Per Day: 2 e-Cigarette/Vaping Use: Never Used Second Hand Smoke Exposure: No Substance Use Type: Heroin Advance Directives Date on File: 08/20/23 service: No Current occupational status: retired Current occupation: rt handed
[2024-05-11] MEDS: methADONE HCl 20 MG/2 ML ORAL.CONC 10 MG PO (19:37)
[2024-05-11] MEDS: Melatonin 3 MG TABLET 6 MG PO (21:23)
[2024-05-12] VITALS (7 sets, daily range): BP systolic 113–144; BP diastolic 59–77; PULSE 69–90; RESP 16; TEMP 36.1–36.9; O2SAT 93–96
[2024-05-12] MEDS: Heparin Sodium,Porcine 5,000 UNIT/ML VIAL 5000 UNIT SUBCUT ×4 (01:01→23:49)
[2024-05-12] MEDS: Omeprazole 40 MG CAPSULE.DR PO ×2 (06:22→16:18)
[2024-05-12 06:48] LABS: Hematocrit 33.1 % (42.0-52.0); Hemoglobin 10.8 g/dl (14.0-18.0); Mean Corpuscular HGB Conc 32.6 g/dl (31.0-36.0); Mean Corpuscular Hemoglobin 31.1 pg (27.0-33.0); Mean Corpuscular Volume 95.4 fL (80.0-98.0); Mean Platelet Volume 10.6 fL (9.4-12.4); Red Blood Count 3.47 X10*6/uL (4.60-5.80); Red Cell Distribution Width 15.5 % (11.0-16.0)
[2024-05-12 06:49] LABS: Platelet Count 72 X10*3/uL (160-400)
[2024-05-12 06:59] LABS: Alanine Aminotransferase 11 U/L (0-40); Albumin Level 2.7 g/dL (3.5-5.0); Alkaline Phosphatase 96 U/L (39-117); Anion Gap 10 (12-20); Aspartate Amino Transferase 26 U/L (5-37); Bilirubin Total 1.2 mg/dL (0.0-1.0); Blood Urea Nitrogen 7 mg/dL (9-16); Calcium 8.2 mg/dL (8.4-10.2); Carbon Dioxide 32 mmol/L (22-29); Chloride 102 mmol/L (96-108); Creatinine Clr Calc Pharmacy 106.9; Estimated Glomerular Filt Rate > 60; Glucose Random 182 mg/dL (60-115); Magnesium 1.6 mg/dL (1.6-2.6); Potassium 3.5 mmol/L (3.3-5.1); Sodium 140 mmol/L (135-145); Total Protein 5.8 g/dL (6.5-8.0)
[2024-05-12 07:07] LABS: INTERNATIONAL NORM RATIO 1.4 (0.9-1.1); Prothrombin Time 16.3 SEC (10.9-12.4)
[2024-05-12 07:13] LABS: HIV AB/AG Nonreactive (Nonreactive); HIV Num 1 0.05 S/CO (0.00-0.99)
[2024-05-12] MEDS: Acetaminophen 325 MG TABLET 650 MG PO (07:57)
[2024-05-12] MEDS: Spironolactone 25 MG TABLET 50 MG PO ×2 (07:58→17:45)
[2024-05-12] MEDS: Folic Acid 1 MG TABLET PO (07:58)
[2024-05-12] MEDS: Thiamine HCL 100 MG TABLET PO (07:58)
[2024-05-12] MEDS: Furosemide 40 MG/4 ML VIAL IVPUSH (07:59)
[2024-05-12] MEDS: 0.9 % Sodium Chloride Flush 3 ML SYRINGE IVFLUSH (07:59)
--- NOTE | 2024-05-12 10:28 | P.PNIM_ITS ---
Subjective Subjective Date of Service: 05/12/24 Interval History: leg edema somewhat improved no dyspnea No hematemesis, hematochezia, or melena. Review of Systems Review of Systems: Yes all other systems are reviewed and are negative Physical Exam 2 Vital Signs: Vital Signs: Last Vital Signs Temp 98.2 F 05/12/24 07:01 Pulse 90 05/12/24 07:01 Resp 16 05/12/24 07:01 BP 139/64 05/12/24 07:01 Pulse Ox 95 05/12/24 07:01 O2 Del Method Room Air 05/12/24 07:01 O2 Flow Rate 2 05/10/24 16:26 BMI result Body Mass Index 42.3 Gen: in no acute distress HEENT: sclera anicteric, moist mucus membranes Neck: supple Lungs: clear to auscultation bilaterally Heart: regular rate and rhythm, no murmurs Abd: soft, non-tender, non-distended, obese Ext: 2+ bilateral edema with chronic venous stasis skin changes Skin: warm/well-perfused Neuro: alert and oriented x3, no focal findings Psych: appropriate affect Objective Data Active Medications Acetaminophen (Acetaminophen 325 Mg Tablet) 650 mg PO Q6H PRN PRN Reason: Pain, Mild (Pain Scale 1-3), fever or headache Last Admin: 05/12/24 07:57 Dose: 650 mg Documented By: DELILAH Calcium Carbonate (Calcium Carbonate 750 Mg Tab.Chew) 750 mg PO Q4H PRN PRN Reason: Heartburn Folic Acid (Folic Acid 1 Mg Tablet) 1 mg PO DAILY [facility] Last Admin: 05/12/24 07:58 Dose: 1 mg Documented By: DELILAH Furosemide (Furosemide 40 Mg/4 Ml Vial) 40 mg IVPUSH BID@0900,1800 [facility]; Protocol Last Admin: 05/12/24 07:59 Dose: 40 mg Documented By: DELILAH Heparin Sodium (Porcine) (Heparin Sodium,Porcine 5,000 Unit/Ml Vial) 5,000 unit SUBCUT Q8H [facility] Last Admin: 05/12/24 07:59 Dose: 5,000 unit Documented By: DELILAH Lactulose (Lactulose 20 Gm/30 Ml Solution) 30 gm PO TID PRN PRN Reason: Constipation Magnesium Hydroxide (Milk Of Magnesia 30 Ml Oral.Susp) 30 ml PO DAILY PRN PRN Reason: Constipation Melatonin (Melatonin 3 Mg Tablet) 6 mg PO BEDTIME PRN PRN Reason: Insomnia Last Admin: 05/11/24 21:23 Dose: 6 mg Documented By: JEFFREY Methadone HCl (Methadone Hcl 20 Mg/2 Ml Oral.Conc) 10 mg PO Q4H PRN PRN Reason: Opiate Withdrawal Last Admin: 05/11/24 19:37 Dose: 10 mg Documented By: JEFFREY Co-signed By: TIA Omeprazole (Omeprazole 40 Mg Capsule.Dr) 40 mg PO BID@0630,1630 [facility] Last Admin: 05/12/24 06:22 Dose: 40 mg Documented By: TAE Ondansetron HCl (Ondansetron Hcl 4 Mg/2 Ml Vial) 4 mg IVPUSH Q8H PRN PRN Reason: Nausea and Vomiting Sodium Chloride (0.9 % Sodium Chloride Flush 3 Ml Syringe) 3 ml IVFLUSH QSHIFT [facility] Last Admin: 05/12/24 07:59 Dose: 3 ml Documented By: DELILAH Spironolactone (Spironolactone 25 Mg Tablet) 50 mg PO BID@0900,1800 [facility]; Protocol Last Admin: 05/12/24 07:58 Dose: 50 mg Documented By: DELILAH Thiamine HCl (Thiamine Hcl 100 Mg Tablet) 100 mg PO DAILY [facility] Last Admin: 05/12/24 07:58 Dose: 100 mg Documented By: DELILAH Labs 05/12/24 05:33 05/12/24 05:33 Labs: Laboratory Results - last 24 hr 05/12/24 05:33 MCV 95.4 MCH 31.1 MCHC 32.6 RDW 15.5 Plt Count 72 L MPV 10.6 Absolute Nucleated RBC 0.000 Nucleated RBC % (auto) 0.0 PT 16.3 H INR 1.4 H Anion Gap 10 L Estim Creat Clear Calc 106.9 Estimated GFR > 60 Random Glucose 182 H Calcium 8.2 L Magnesium 1.6 Total Bilirubin 1.2 H AST 26 ALT 11 Alkaline Phosphatase 96 Total Protein 5.8 L Albumin 2.7 L HIV 1&2 Ab/P24 Ag 4thGn Nonreactive Assessment and Plan (1) Polysubstance abuse: Status: Acute Plan d3 for 68yo M with 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, ongoing polysubstance abuse presenting with severe leg edema causing difficulty ambulating leg edema due to decompensated cirrhosis + chronic venous stasis - change IV to PO furosemide, continue spironolactone acute hypoxic resp failure due to fluid overload - weaned off O2; resolved decompensated cirrhosis with hx portal vein thrombosis, portal HTN gastropathy, pancytopenia; hx TIPS - continue lactulose, importance of sobriety counseled AUD - prn CIWA, thiamine, folate OUD - Addiction Medicine consulted; on prn methadone; HIV negative; HCV viral load pending VTE ppx - UFH dispo - STR In my clinical judgment, the patient requires continued inpatient hospitalization for the following reasons: placement Total time managing care of this patient today: 35 minutes. Quality Stroke Does the patient have a stroke diagnosis?: No VTE Prior VTE?: No VTE Risk Level:: Medical - moderate - high VTE Device Contraindication: Treatment Not Indicated VTE Drug Contraindication: N/A - Med Ordered
--- NOTE | 2024-05-12 10:30 | MHC.RECOVRN ---
Met with pt to follow up and provide support. Pt laying in bed, eyes closed, wakes to voice, engages in conversation, reports feeling tired. Pt reports 10 mg methadone was helpful yesterday evening. Denies current withdrawal symptoms. Denies questions or concerns for t/w. Maria Dolores Murillo APRN, aware.
--- NOTE | 2024-05-12 11:09 | MHC.CM.PN ---
Addendum entered by Amada Mcfarlane 05/12/24 11:50: [facility] HAS CONFIRMED THEY CAN ACCEPT PT TOMORROW LONG PT DOES NOT REQUIRE METHADONE THEY WILL SUBMIT FOR AUTH TODAY PT WILL NEED A LESS THAN 30 DAY ORDER IN HIS DCS ANY NARCOTICS WOULD NEED TO BE SENT TO [facility] [phone] Original Note: PER MD ROUNDS, PT IS MEDICALLY READY TO DC PT DID HAVE ONE DOSE OF METHADONE LAST NIGHT HOWEVER STATES HE HOPES HE WILL NOT NEED ANY MORE [facility] IS OFFERING A BED HOWEVER PT WILL REMAIN AT LEAST ONE MORE DAY TO ENSURE HE DOES NOT REQUIRE FURTHER METHADONE TREATMENT/INTERVENTION FOR WITHDRAWAL
[2024-05-12] MEDS: methADONE HCl 20 MG/2 ML ORAL.CONC 10 MG PO ×2 (11:55→14:42)
--- NOTE | 2024-05-12 14:10 | MHC.RECOVRN ---
Pts referral sent to [facility].
--- NOTE | 2024-05-12 14:15 | P.PNADD_ITS ---
Subjective Subjective Date of Service: 05/12/24 Reason For Visit: Bilateral leg swelling Interim History: Patient seen in follow up Awake, alert, watching TV He received methadone 10mg early evening 05/11 Another 10mg this morning Patient reporting dose was helpful with stomach discomfort and allowed him to eat He requests to continue methadone Reports that he felt good when previously on 40mg, but due to impaired mobility and unstable housing he was unable to continue methadone treatment Review of Systems Constitutional: Reports as per HPI Mental Status Exam Mental Status Exam Patient Appearance: Appropriate Level of Consciousness: Awake, Appropriate and Alert Patient Behavior: Appropriate and Talkative Mood Description: Calm Affect Description: Calm Speech Pattern: Clear Diagnostics Vital Signs (24Hr): Vital Signs - 24 hr 05/11/24 15:09 05/11/24 19:08 05/12/24 03:41 Temperature 97.6 F 98.4 F 96.9 F Pulse Rate 74 79 70 Respiratory Rate 20 20 16 Blood Pressure 111/76 128/65 113/59 L Pulse Oximetry 96 95 93 Oxygen Delivery Method Room Air Room Air Room Air 05/12/24 07:01 Temperature 98.2 F Pulse Rate 90 Respiratory Rate 16 Blood Pressure 139/64 Pulse Oximetry 95 Oxygen Delivery Method Room Air BMI result Body Mass Index 42.3 Labs 05/12/24 05:33 05/12/24 05:33 Labs: Laboratory Results - last 48 hr 05/10/24 05/10/24 05/10/24 10:49 17:05 17:07 WBC RBC Hgb Hct MCV MCH MCHC RDW Plt Count MPV Absolute Nucleated RBC Nucleated RBC % (auto) PT INR Sodium Potassium Chloride Carbon Dioxide Anion Gap BUN Creatinine Estim Creat Clear Calc Estimated GFR Random Glucose Estimat Average Glucose Hemoglobin A1c % Calcium Magnesium Total Bilirubin AST ALT Alkaline Phosphatase B-Natriuretic Peptide 36 Total Protein Albumin Urine Color Yellow Urine Appearance Clear Urine pH 6.5 Ur Specific [place] <= 1.005 Urine Protein Negative Urine Glucose (UA) Negative Urine Ketones Negative Urine Blood Negative Urine Nitrite Negative Ur Leukocyte Esterase Trace H Urine RBC 0-2 Urine WBC 0-5 Ur Squamous Epith Cells 0-2 Urine Bacteria None Seen Hyaline Casts 0-2 Urine Opiates Screen POSITIVE H Ur Buprenorphine Scrn Not Detected Ur Oxycodone Screen Not Detected Urine Methadone Screen Not Detected Urine Fentanyl Screen POSITIVE H Ur Barbiturates Screen Not Detected Ur Phencyclidine Scrn Not Detected Ur Amphetamines Screen Not Detected U Benzodiazepines Scrn Not Detected Urine Cocaine Screen Not Detected U Marijuana (THC) Screen Not Detected HIV 1&2 Ab/P24 Ag 4thGn 05/11/24 05/12/24 05:40 05:33 WBC 2.0 L RBC 3.47 L Hgb 10.8 L Hct 33.1 L MCV 95.4 MCH 31.1 MCHC 32.6 RDW 15.5 Plt Count 72 L MPV 10.6 Absolute Nucleated RBC 0.000 Nucleated RBC % (auto) 0.0 PT 16.3 H INR 1.4 H Sodium 140 140 Potassium 3.9 3.5 Chloride 104 102 Carbon Dioxide 31 H 32 H Anion Gap 9 L 10 L BUN 8 L 7 L Creatinine 0.64 0.75 Estim Creat Clear Calc 125.3 106.9 Estimated GFR > 60 > 60 Random Glucose 162 H 182 H Estimat Average Glucose 123 Hemoglobin A1c % 5.9 Calcium 8.7 8.2 L Magnesium 1.9 1.6 Total Bilirubin 1.2 H AST 26 ALT 11 Alkaline Phosphatase 96 B-Natriuretic Peptide Total Protein 5.8 L Albumin 2.7 L Urine Color Urine Appearance Urine pH Ur Specific [place] Urine Protein Urine Glucose (UA) Urine Ketones Urine Blood Urine Nitrite Ur Leukocyte Esterase Urine RBC Urine WBC Ur Squamous Epith Cells Urine Bacteria Hyaline Casts Urine Opiates Screen Ur Buprenorphine Scrn Ur Oxycodone Screen Urine Methadone Screen Urine Fentanyl Screen Ur Barbiturates Screen Ur Phencyclidine Scrn Ur Amphetamines Screen U Benzodiazepines Scrn Urine Cocaine Screen U Marijuana (THC) Screen HIV 1&2 Ab/P24 Ag 4thGn Nonreactive Imaging Radiology Impressions: ITS Impressions Chest X-Ray 05/10/24 12:15 IMPRESSION: Query mild congestive change. Electronically signed by: Beau Carroll MD 05/10/2024 02:01 PM [facility] Venous Duplex 05/10/24 12:40 IMPRESSION: 1. Very limited exam due to extensive subcutaneous edema and skin thickening, worse on the left, resulting in nonvisualization of the below the knee veins on the left and the right peroneal vein. 2. Within the limitations of the exam, no evidence of deep venous thrombosis involving the right lower extremity or above the knee deep venous thrombosis in the left lower extremity. 3. Bilateral Estrada's cysts. Electronically signed by: Barbara Starr MD 05/10/2024 01:41 PM EST Medications Medications Current Medications Acetaminophen (Acetaminophen 325 Mg Tablet) 650 mg PO Q6H PRN PRN Reason: Pain, Mild (Pain Scale 1-3), fever or headache Last Admin: 05/12/24 07:57 Dose: 650 mg Calcium Carbonate (Calcium Carbonate 750 Mg Tab.Chew) 750 mg PO Q4H PRN PRN Reason: Heartburn Folic Acid (Folic Acid 1 Mg Tablet) 1 mg PO DAILY [facility] Last Admin: 05/12/24 07:58 Dose: 1 mg Furosemide (Furosemide 40 Mg Tablet) 40 mg PO BID@0900,1800 [facility]; Protocol Heparin Sodium (Porcine) (Heparin Sodium,Porcine 5,000 Unit/Ml Vial) 5,000 unit SUBCUT Q8H [facility] Last Admin: 05/12/24 07:59 Dose: 5,000 unit Lactulose (Lactulose 20 Gm/30 Ml Solution) 30 gm PO TID [facility] Magnesium Hydroxide (Milk Of Magnesia 30 Ml Oral.Susp) 30 ml PO DAILY PRN PRN Reason: Constipation Melatonin (Melatonin 3 Mg Tablet) 6 mg PO BEDTIME PRN PRN Reason: Insomnia Last Admin: 05/11/24 21:23 Dose: 6 mg Methadone HCl (Methadone Hcl 20 Mg/2 Ml Oral.Conc) 10 mg PO ONCE ONE Stop: 05/12/24 14:15 Omeprazole (Omeprazole 40 Mg Capsule.Dr) 40 mg PO BID@0630,1630 [facility] Last Admin: 05/12/24 06:22 Dose: 40 mg Ondansetron HCl (Ondansetron Hcl 4 Mg/2 Ml Vial) 4 mg IVPUSH Q8H PRN PRN Reason: Nausea and Vomiting Sodium Chloride (0.9 % Sodium Chloride Flush 3 Ml Syringe) 3 ml IVFLUSH QSHIFT [facility] Last Admin: 05/12/24 07:59 Dose: 3 ml Spironolactone (Spironolactone 25 Mg Tablet) 50 mg PO BID@0900,1800 [facility]; Protocol Last Admin: 05/12/24 07:58 Dose: 50 mg Thiamine HCl (Thiamine Hcl 100 Mg Tablet) 100 mg PO DAILY [facility] Last Admin: 05/12/24 07:58 Dose: 100 mg Allergies Allergies Allergy/AdvReac Type Severity Reaction Status Date / Time No Known Allergies Allergy Verified 11/06/24 10:04 [No Known Allergies*] Assessment & Plan Assessment & Plan (1) Opioid use disorder: Status: Acute Code(s): F11.90 - Opioid use, unspecified, uncomplicated Assessment and Plan: * methadone 20mg total today * methadone 30mg QD starting in AM (05/13) * glucose and syrup weigher to send information to [facility] in [place] Total time managing care of this patient today __25__ minutes.
--- NOTE | 2024-05-12 14:37 | HO.WOUND ---
Wound Consult: Attempted 69yr old?male admitted to [facility] on 05/10/24- See progress notes and H&P for detailed history.? Wound consult placed for Bilateral Lower Leg.? Arrival to unit and bedside patient was meeting with provider [facility] and not appropriate for interruption. Discussed with direct care nurse, hemosiderin staining noted with no open wounds and no weeping noted. Will return at future date for assessment and consultation.
[2024-05-12] MEDS: Lactulose 20 GM/30 ML SOLUTION 30 GM PO (14:42)
--- NOTE | 2024-05-12 16:36 | PC.NURSE ---
Patient IV fell out. Per Dr. Watson no need for IV access at this time.
[2024-05-12] MEDS: Furosemide 40 MG TABLET PO (17:45)
[2024-05-13] VITALS (7 sets, daily range): BP systolic 122–143; BP diastolic 63–81; PULSE 70–85; RESP 16–18; TEMP 36.8–37.2; O2SAT 94–95
[2024-05-13] MEDS: Acetaminophen 325 MG TABLET 650 MG PO (05:43)
[2024-05-13] MEDS: Omeprazole 40 MG CAPSULE.DR PO ×2 (05:43→15:58)
[2024-05-13] MEDS: Heparin Sodium,Porcine 5,000 UNIT/ML VIAL 5000 UNIT SUBCUT ×2 (08:12→15:58)
[2024-05-13] MEDS: methADONE HCl 20 MG/2 ML ORAL.CONC 30 MG PO (08:12)
[2024-05-13] MEDS: Thiamine HCL 100 MG TABLET PO (08:13)
[2024-05-13] MEDS: Folic Acid 1 MG TABLET PO (08:13)
[2024-05-13] MEDS: Furosemide 40 MG TABLET PO (08:13)
[2024-05-13] MEDS: Spironolactone 25 MG TABLET 50 MG PO ×2 (08:13→17:21)
--- NOTE | 2024-05-13 14:24 | HO.PM.IMPN ---
Subjective Subjective Date of Service: 05/13/24 Interval History: Being admitted for bilateral leg swelling, alcohol on opiate use disorder. Offers no acute complaints denies shortness of breath, no chest pain, no withdrawal symptoms, leg edema improving, no hematemesis, no abdominal pain or melena. Review of Systems All other symptoms reviewed and are negative. Physical Exam Vital Signs: Vital Signs: Last Vital Signs Temp 98.3 F 05/13/24 07:55 Pulse 74 05/13/24 07:55 Resp 18 05/13/24 07:55 BP 134/68 05/13/24 08:13 Pulse Ox 94 05/13/24 07:55 O2 Del Method Room Air 05/13/24 07:55 O2 Flow Rate 2 05/10/24 16:26 BMI result Body Mass Index 42.3 Const: Other: Gen: in no acute distress HEENT: sclera anicteric, moist mucus membranes Neck: supple Lungs: clear to auscultation bilaterally Heart: regular rate and rhythm, no murmurs Abd: soft, non-tender, non-distended, obese Ext: Bilateral lower extremity edema improving, chronic venous stasis skin changes unchanged Skin: warm/well-perfused Neuro: alert and oriented x3, no focal findings Psych: appropriate affect Objective Data Active Medications Acetaminophen (Acetaminophen 325 Mg Tablet) 650 mg PO Q6H PRN PRN Reason: Pain, Mild (Pain Scale 1-3), fever or headache Last Admin: 05/13/24 05:43 Dose: 650 mg Documented By: ELIAS Calcium Carbonate (Calcium Carbonate 750 Mg Tab.Chew) 750 mg PO Q4H PRN PRN Reason: Heartburn Folic Acid (Folic Acid 1 Mg Tablet) 1 mg PO DAILY [facility] Last Admin: 05/13/24 08:13 Dose: 1 mg Documented By: JACQUELINE Furosemide (Furosemide 40 Mg Tablet) 40 mg PO BID@0900,1800 [facility]; Protocol Last Admin: 05/13/24 08:13 Dose: 40 mg Documented By: JACQUELINE Heparin Sodium (Porcine) (Heparin Sodium,Porcine 5,000 Unit/Ml Vial) 5,000 unit SUBCUT Q8H [facility] Last Admin: 05/13/24 08:12 Dose: 5,000 unit Documented By: JACQUELINE Lactulose (Lactulose 20 Gm/30 Ml Solution) 30 gm PO TID [facility] Last Admin: 05/13/24 08:18 Dose: Not Given Documented By: JACQUELINE Non-Admin Reason: pt refused Magnesium Hydroxide (Milk Of Magnesia 30 Ml Oral.Susp) 30 ml PO DAILY PRN PRN Reason: Constipation Melatonin (Melatonin 3 Mg Tablet) 6 mg PO BEDTIME PRN PRN Reason: Insomnia Last Admin: 05/11/24 21:23 Dose: 6 mg Documented By: JEFFREY Methadone HCl (Methadone Hcl 20 Mg/2 Ml Oral.Conc) 30 mg PO DAILY@0800 [facility] Last Admin: 05/13/24 08:12 Dose: 30 mg Documented By: JACQUELINE Co-signed By: TYSHAWN Omeprazole (Omeprazole 40 Mg Capsule.Dr) 40 mg PO BID@0630,1630 [facility] Last Admin: 05/13/24 05:43 Dose: 40 mg Documented By: ELIAS Ondansetron HCl (Ondansetron Hcl 4 Mg/2 Ml Vial) 4 mg IVPUSH Q8H PRN PRN Reason: Nausea and Vomiting Ondansetron HCl (Ondansetron Odt 4 Mg Tab.Rapdis) 4 mg TRANSLINGU Q4H PRN PRN Reason: Nausea and Vomiting Sodium Chloride (0.9 % Sodium Chloride Flush 3 Ml Syringe) 3 ml IVFLUSH QSHIFT [facility] Last Admin: 05/13/24 07:32 Dose: Not Given Documented By: JACQUELINE Non-Admin Reason: No Access Spironolactone (Spironolactone 25 Mg Tablet) 50 mg PO BID@0900,1800 [facility]; Protocol Last Admin: 05/13/24 08:13 Dose: 50 mg Documented By: JACQUELINE Thiamine HCl (Thiamine Hcl 100 Mg Tablet) 100 mg PO DAILY [facility] Last Admin: 05/13/24 08:13 Dose: 100 mg Documented By: JACQUELINE Labs 05/12/24 05:33 05/12/24 05:33 Assessment and Plan (1) Opioid use disorder: Status: Acute (2) Localized swelling of both lower legs: Status: Acute (3) Alcohol use disorder: Status: Acute (4) Active substance abuse: Status: Acute Plan 68yo M with 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, ongoing polysubstance abuse presenting with severe leg edema causing difficulty ambulating leg edema due to decompensated cirrhosis + chronic venous stasis - status post IV Lasix continue PO furosemide changed to 40 mg daily s, and spironolactone acute hypoxic resp failure due to fluid overload - weaned off O2; resolved, will change Lasix to daily decompensated cirrhosis with hx portal vein thrombosis, portal HTN gastropathy, pancytopenia; hx TIPS - continue lactulose, strongly recommend to abstain from alcohol AUD - prn CIWA, thiamine, folate OUD - Addiction Medicine consulted; on methadone 30 mg daily; HIV negative; HCV viral load pending VTE ppx - UFH dispo - STR In my clinical judgment, the patient requires continued inpatient hospitalization for the following reasons: placement Quality Stroke Does the patient have a stroke diagnosis?: No VTE Prior VTE?: No VTE Risk Level:: Medical - moderate - high VTE Device Contraindication: Treatment Not Indicated VTE Drug Contraindication: N/A - Med Ordered
[2024-05-13] MEDS: Lactulose 20 GM/30 ML SOLUTION 30 GM PO ×2 (15:58→21:26)
[2024-05-13] MEDS: Melatonin 3 MG TABLET 6 MG PO (21:26)
[2024-05-14] VITALS (7 sets, daily range): BP systolic 127–139; BP diastolic 73–81; PULSE 76–103; RESP 14–18; TEMP 36.6–37.5; O2SAT 94–95
[2024-05-14] MEDS: Heparin Sodium,Porcine 5,000 UNIT/ML VIAL 5000 UNIT SUBCUT ×4 (00:29→23:13)
[2024-05-14] MEDS: Omeprazole 40 MG CAPSULE.DR PO ×2 (05:28→16:08)
[2024-05-14 07:39] LABS: Hemoglobin 11.4 g/dl (14.0-18.0); Mean Corpuscular HGB Conc 33.5 g/dl (31.0-36.0); Mean Corpuscular Hemoglobin 31.2 pg (27.0-33.0); Mean Corpuscular Volume 93.2 fL (80.0-98.0); Mean Platelet Volume 10.3 fL (9.4-12.4); Red Blood Count 3.65 X10*6/uL (4.60-5.80); Red Cell Distribution Width 15.5 % (11.0-16.0); White Blood Count 2.6 X10*3/uL (4.8-10.8)
[2024-05-14 07:45] LABS: Platelet Count 72 X10*3/uL (160-400)
[2024-05-14 07:49] LABS: Anion Gap 14 (12-20); Blood Urea Nitrogen 7 mg/dL (9-16); Calcium 8.8 mg/dL (8.4-10.2); Carbon Dioxide 27 mmol/L (22-29); Chloride 104 mmol/L (96-108); Creatinine Clr Calc Pharmacy 111.4; Estimated Glomerular Filt Rate > 60; Glucose Random 143 mg/dL (60-115); Potassium 3.3 mmol/L (3.3-5.1); Sodium 142 mmol/L (135-145)
[2024-05-14] MEDS: Folic Acid 1 MG TABLET PO (08:29)
[2024-05-14] MEDS: Spironolactone 25 MG TABLET 50 MG PO ×2 (08:29→18:11)
[2024-05-14] MEDS: methADONE HCl 20 MG/2 ML ORAL.CONC 30 MG PO (08:29)
[2024-05-14] MEDS: Lactulose 20 GM/30 ML SOLUTION 30 GM PO ×3 (08:29→21:12)
[2024-05-14] MEDS: Furosemide 40 MG TABLET PO (08:30)
[2024-05-14] MEDS: Thiamine HCL 100 MG TABLET PO (08:30)
--- NOTE | 2024-05-14 11:42 | HO.PM.IMPN ---
Subjective Subjective Date of Service: 05/14/24 Interval History: Complaining of leg pain, offers no acute complaints of chest pain, no shortness of breath, no nausea, no vomiting or abdominal pain was noncompliant with home medications. Review of Systems All other symptoms reviewed and are negative. Physical Exam Vital Signs: Vital Signs: Last Vital Signs Temp 98.5 F 05/14/24 08:00 Pulse 76 05/14/24 08:00 Resp 14 05/14/24 08:00 BP 136/73 05/14/24 08:30 Pulse Ox 95 05/14/24 08:00 O2 Del Method Room Air 05/14/24 08:00 O2 Flow Rate 2 05/10/24 16:26 BMI result Body Mass Index 42.3 Const: Other: Gen: in no acute distress HEENT: sclera anicteric, moist mucus membranes Neck: supple Lungs: clear to auscultation bilaterally Heart: regular rate and rhythm, no murmurs Abd: soft, non-tender, non-distended, obese Ext: Bilateral lower extremity edema resolved, chronic venous stasis skin changes unchanged Skin: warm/well-perfused Neuro: alert and oriented x3, no focal findings Psych: appropriate affect Objective Data Active Medications Acetaminophen (Acetaminophen 325 Mg Tablet) 650 mg PO Q6H PRN PRN Reason: Pain, Mild (Pain Scale 1-3), fever or headache Last Admin: 05/13/24 05:43 Dose: 650 mg Documented By: ELIAS Calcium Carbonate (Calcium Carbonate 750 Mg Tab.Chew) 750 mg PO Q4H PRN PRN Reason: Heartburn Folic Acid (Folic Acid 1 Mg Tablet) 1 mg PO DAILY [facility] Last Admin: 05/14/24 08:29 Dose: 1 mg Documented By: JACQUELINE Furosemide (Furosemide 40 Mg Tablet) 40 mg PO DAILY [facility]; Protocol Last Admin: 05/14/24 08:30 Dose: 40 mg Documented By: JACQUELINE Heparin Sodium (Porcine) (Heparin Sodium,Porcine 5,000 Unit/Ml Vial) 5,000 unit SUBCUT Q8H [facility] Last Admin: 05/14/24 08:29 Dose: 5,000 unit Documented By: JACQUELINE Lactulose (Lactulose 20 Gm/30 Ml Solution) 30 gm PO TID [facility] Last Admin: 05/14/24 08:29 Dose: 30 gm Documented By: JACQUELINE Magnesium Hydroxide (Milk Of Magnesia 30 Ml Oral.Susp) 30 ml PO DAILY PRN PRN Reason: Constipation Melatonin (Melatonin 3 Mg Tablet) 6 mg PO BEDTIME PRN PRN Reason: Insomnia Last Admin: 05/13/24 21:26 Dose: 6 mg Documented By: ELIAS Methadone HCl (Methadone Hcl 20 Mg/2 Ml Oral.Conc) 30 mg PO DAILY@0800 [facility] Last Admin: 05/14/24 08:29 Dose: 30 mg Documented By: JACQUELINE Co-signed By: TREVA Omeprazole (Omeprazole 40 Mg Capsule.Dr) 40 mg PO BID@0630,1630 [facility] Last Admin: 05/14/24 05:28 Dose: 40 mg Documented By: ELIAS Ondansetron HCl (Ondansetron Hcl 4 Mg/2 Ml Vial) 4 mg IVPUSH Q8H PRN PRN Reason: Nausea and Vomiting Ondansetron HCl (Ondansetron Odt 4 Mg Tab.Rapdis) 4 mg TRANSLINGU Q4H PRN PRN Reason: Nausea and Vomiting Sodium Chloride (0.9 % Sodium Chloride Flush 3 Ml Syringe) 3 ml IVFLUSH QSHIFT [facility] Last Admin: 05/14/24 07:28 Dose: Not Given Documented By: JACQUELINE Non-Admin Reason: No Access Spironolactone (Spironolactone 25 Mg Tablet) 50 mg PO BID@0900,1800 [facility]; Protocol Last Admin: 05/14/24 08:29 Dose: 50 mg Documented By: JACQUELINE Thiamine HCl (Thiamine Hcl 100 Mg Tablet) 100 mg PO DAILY [facility] Last Admin: 05/14/24 08:30 Dose: 100 mg Documented By: JACQUELINE Labs 05/14/24 05:59 05/14/24 05:59 Labs: Laboratory Results - last 24 hr 05/14/24 05:59 MCV 93.2 MCH 31.2 MCHC 33.5 RDW 15.5 Plt Count 72 L MPV 10.3 Absolute Nucleated RBC 0.000 Nucleated RBC % (auto) 0.0 Anion Gap 14 Estim Creat Clear Calc 111.4 Estimated GFR > 60 Random Glucose 143 H Calcium 8.8 D Assessment and Plan (1) Opioid use disorder: Status: Acute (2) Localized swelling of both lower legs: Status: Acute (3) Alcohol use disorder: Status: Acute Plan 68yo M with 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, ongoing polysubstance abuse presenting with severe leg edema causing difficulty ambulating leg edema due to decompensated cirrhosis + chronic venous stasis - status post IV Lasix continue PO furosemide changed to 40 mg daily s, and spironolactone, stable BMP and renal function acute hypoxic resp failure due to fluid overload - resolved, continue diuretics as above decompensated cirrhosis with hx portal vein thrombosis, portal HTN gastropathy, pancytopenia; hx TIPS - continue lactulose, strongly recommend to abstain from alcohol AUD - thiamine, folate, counseling done OUD - Addiction Medicine consulted; on methadone 30 mg daily; HIV negative; HCV viral load pending Class 3 obesity recommend low-calorie diet. VTE ppx - UFH dispo - STR In my clinical judgment, the patient requires continued inpatient hospitalization for the following reasons: placement Quality Stroke Does the patient have a stroke diagnosis?: No VTE Prior VTE?: No VTE Risk Level:: Medical - moderate - high VTE Device Contraindication: Treatment Not Indicated VTE Drug Contraindication: N/A - Med Ordered
[2024-05-14] MEDS: Potassium Chloride ER 20 MEQ TAB.ER.PRT PO (18:11)
[2024-05-14] MEDS: Acetaminophen 325 MG TABLET 650 MG PO (21:15)
[2024-05-14] MEDS: Melatonin 3 MG TABLET 6 MG PO (21:15)
[2024-05-15 03:17] VITALS: BP 134/74; PULSE 73; RESP 17; TEMP 36.4; O2SAT 93
[2024-05-15] MEDS: Omeprazole 40 MG CAPSULE.DR PO ×2 (05:29→15:48)
[2024-05-15 07:07] VITALS: BP 131/65; PULSE 80; RESP 15; TEMP 36.3; O2SAT 96
[2024-05-15] MEDS: Spironolactone 25 MG TABLET 50 MG PO ×2 (09:06→17:15)
[2024-05-15] MEDS: Heparin Sodium,Porcine 5,000 UNIT/ML VIAL 5000 UNIT SUBCUT ×2 (09:06→15:48)
[2024-05-15] MEDS: Furosemide 40 MG TABLET PO (09:06)
[2024-05-15] MEDS: methADONE HCl 20 MG/2 ML ORAL.CONC 30 MG PO (09:06)
[2024-05-15] MEDS: Folic Acid 1 MG TABLET PO (09:06)
[2024-05-15] MEDS: Thiamine HCL 100 MG TABLET PO (09:06)
[2024-05-15] MEDS: Lactulose 20 GM/30 ML SOLUTION 30 GM PO ×2 (09:07→15:48)
--- NOTE | 2024-05-15 10:22 | HO.ADDICTPRO ---
Subjective Subjective Date of Service: 05/15/24 Reason For Visit: Bilateral leg swelling Interim History: Patient seen in follow up Methadone 30mg over the weekend Appearing comfortable and reporting much improved withdrawal management Still reporting lacrimation and occasional stomach cramping --requesting dose increase to 40mg Also reporting poor sleep. Chart review shows PRN melatonin administered every evening, with documented +effect, however patient reports short lived effectiveness No other complaints related to substance use/withdrawal Review of Systems Constitutional: Reports as per HPI Mental Status Exam Mental Status Exam Patient Appearance: Well Grooomed and Appropriate Level of Consciousness: Awake, Appropriate and Alert Patient Behavior: Appropriate and Talkative Mood Description: Calm Affect Description: Calm Diagnostics Vital Signs (24Hr): Vital Signs - 24 hr 05/14/24 15:15 05/14/24 18:11 05/14/24 18:58 Temperature 99.5 F 98 F Pulse Rate 100 103 H Respiratory Rate 16 18 Blood Pressure 139/79 127/78 131/81 Pulse Oximetry 94 95 Oxygen Delivery Method Room Air Room Air 05/15/24 03:17 05/15/24 07:07 Temperature 97.6 F 97.4 F Pulse Rate 73 80 Respiratory Rate 17 15 Blood Pressure 134/74 131/65 Pulse Oximetry 93 96 Oxygen Delivery Method Room Air Room Air BMI result Body Mass Index 42.3 Labs 05/14/24 05:59 05/14/24 05:59 Labs: Laboratory Results - last 48 hr 05/14/24 05:59 WBC 2.6 L RBC 3.65 L Hgb 11.4 L Hct 34.0 L MCV 93.2 MCH 31.2 MCHC 33.5 RDW 15.5 Plt Count 72 L MPV 10.3 Absolute Nucleated RBC 0.000 Nucleated RBC % (auto) 0.0 Sodium 142 Potassium 3.3 Chloride 104 Carbon Dioxide 27 Anion Gap 14 BUN 7 L Creatinine 0.72 Estim Creat Clear Calc 111.4 Estimated GFR > 60 Random Glucose 143 H Calcium 8.8 D Imaging Radiology Impressions: ITS Impressions Chest X-Ray 05/10/24 12:15 IMPRESSION: Query mild congestive change. Electronically signed by: Beau Carroll MD 05/10/2024 02:01 PM [facility] [place] Duplex 05/10/24 12:40 IMPRESSION: 1. Very limited exam due to extensive subcutaneous edema and skin thickening, worse on the left, resulting in nonvisualization of the below the knee veins on the left and the right peroneal vein. 2. Within the limitations of the exam, no evidence of deep venous thrombosis involving the right lower extremity or above the knee deep venous thrombosis in the left lower extremity. 3. Bilateral Estrada's cysts. Electronically signed by: Barbara Starr MD 05/10/2024 01:41 PM [facility] Medications Medications Current Medications Acetaminophen (Acetaminophen 325 Mg Tablet) 650 mg PO Q6H PRN PRN Reason: Pain, Mild (Pain Scale 1-3), fever or headache Last Admin: 05/14/24 21:15 Dose: 650 mg Calcium Carbonate (Calcium Carbonate 750 Mg Tab.Chew) 750 mg PO Q4H PRN PRN Reason: Heartburn Folic Acid (Folic Acid 1 Mg Tablet) 1 mg PO DAILY [facility] Last Admin: 05/15/24 09:06 Dose: 1 mg Furosemide (Furosemide 40 Mg Tablet) 40 mg PO DAILY [facility]; Protocol Last Admin: 05/15/24 09:06 Dose: 40 mg Heparin Sodium (Porcine) (Heparin Sodium,Porcine 5,000 Unit/Ml Vial) 5,000 unit SUBCUT Q8H [facility] Last Admin: 05/15/24 09:06 Dose: 5,000 unit Lactulose (Lactulose 20 Gm/30 Ml Solution) 30 gm PO TID [facility] Last Admin: 05/15/24 09:07 Dose: 30 gm Magnesium Hydroxide (Milk Of Magnesia 30 Ml Oral.Susp) 30 ml PO DAILY PRN PRN Reason: Constipation Melatonin (Melatonin 3 Mg Tablet) 6 mg PO BEDTIME PRN PRN Reason: Insomnia Last Admin: 05/14/24 21:15 Dose: 6 mg Methadone HCl (Methadone Hcl 20 Mg/2 Ml Oral.Conc) 40 mg PO DAILY@0800 [facility] Omeprazole (Omeprazole 40 Mg Capsule.Dr) 40 mg PO BID@0630,1630 [facility] Last Admin: 05/15/24 05:29 Dose: 40 mg Ondansetron HCl (Ondansetron Hcl 4 Mg/2 Ml Vial) 4 mg IVPUSH Q8H PRN PRN Reason: Nausea and Vomiting Ondansetron HCl (Ondansetron Odt 4 Mg Tab.Rapdis) 4 mg TRANSLINGU Q4H PRN PRN Reason: Nausea and Vomiting Sodium Chloride (0.9 % Sodium Chloride Flush 3 Ml Syringe) 3 ml IVFLUSH QSHIFT [facility] Last Admin: 05/15/24 09:07 Dose: Not Given Spironolactone (Spironolactone 25 Mg Tablet) 50 mg PO BID@0900,1800 [facility]; Protocol Last Admin: 05/15/24 09:06 Dose: 50 mg Thiamine HCl (Thiamine Hcl 100 Mg Tablet) 100 mg PO DAILY [facility] Last Admin: 05/15/24 09:06 Dose: 100 mg Allergies Allergies Allergy/AdvReac Type Severity Reaction Status Date / Time No Known Allergies Allergy Verified 05/10/24 10:04 [No Known Allergies*] Assessment & Plan Assessment & Plan (1) Opioid use disorder: Status: Acute Code(s): F11.90 - Opioid use, unspecified, uncomplicated Assessment and Plan: methadone 10mg x1 today (total 40mg methadone) methadone daily dose increased to 40mg daily plan for d/c to SNF--OTP coordination in process Total time managing care of this patient today __20__ minutes.
[2024-05-15] MEDS: methADONE HCl 20 MG/2 ML ORAL.CONC 10 MG PO (10:54)
--- NOTE | 2024-05-15 11:06 | MHC.RECOVRN ---
Updated dose information sent to [facility].
--- NOTE | 2024-05-15 11:30 | MHC.RECOVRN ---
Attempted to speak with intake at [facility] x 3 to confirm receipt of information, no answer, no way to leave a message.
[2024-05-15 12:00] VITALS: PULSE 84
--- NOTE | 2024-05-15 12:22 | HO.WOUND ---
Wound Consult: Initial 69yr old?male admitted to [facility] on 05/10/24 - See progress notes and H&P for detailed history.? Wound consult placed for Bilateral Lower legs.? Patient agreeable to assessment and photo documentation.? Bilateral Lower Legs Etiology: Venous Dermatitis Wound Bed: no open wounds - thickened tissue noted - dry scaling tissue noted - evidence of recent fluid loss with deep creases noted Drainage / Odor: None Kathleen wound: ? No Induration, Fluctuance or Warmth noted Pain: denies pain denies itching Goals of Treatment: ? Apply lotion / cream to keep tissue healthy and supple - elevate lower legs Recommendations: 1. Bilateral Lower Legs - Routine cleansing, apply lotion or cream or vaseline to lower legs to keep skin supple and healthy. Elevate lower legs to aid in fluid retention. Re-consult wound care Nurse for wound deterioration or wound changes.
--- NOTE | 2024-05-15 13:59 | P.PNIM_ITS ---
Subjective Subjective Date of Service: 05/15/24 Interval History: Being followed for lower extremity edema/alcohol and opiate use disorder. Offers no acute complaints denies nausea, no vomiting, no abdominal pain tolerating diet denies shakiness, no withdrawal symptoms. Review of Systems All other symptoms reviewed and are negative. Physical Exam 2 Vital Signs: Vital Signs: Last Vital Signs Temp 97.4 F 05/15/24 07:07 Pulse 80 05/15/24 07:07 Resp 15 05/15/24 07:07 BP 131/65 05/15/24 07:07 Pulse Ox 96 05/15/24 07:07 O2 Del Method Room Air 05/15/24 07:07 O2 Flow Rate 2 05/10/24 16:26 BMI result Body Mass Index 42.3 Const: Other: Gen: in no acute distress HEENT: sclera anicteric, moist mucus membranes Neck: supple Lungs: clear to auscultation bilaterally Heart: regular rate and rhythm, no murmurs Abd: soft, non-tender, non-distended, obese Ext: Bilateral lower extremity edema resolved, chronic venous stasis skin changes unchanged Skin: warm/well-perfused Neuro: alert and oriented x3, no focal findings Psych: appropriate affect Objective Data Active Medications Acetaminophen (Acetaminophen 325 Mg Tablet) 650 mg PO Q6H PRN PRN Reason: Pain, Mild (Pain Scale 1-3), fever or headache Last Admin: 05/14/24 21:15 Dose: 650 mg Documented By: ELIAS Calcium Carbonate (Calcium Carbonate 750 Mg Tab.Chew) 750 mg PO Q4H PRN PRN Reason: Heartburn Folic Acid (Folic Acid 1 Mg Tablet) 1 mg PO DAILY [facility] Last Admin: 05/15/24 09:06 Dose: 1 mg Documented By: CHAY Furosemide (Furosemide 40 Mg Tablet) 40 mg PO DAILY [facility]; Protocol Last Admin: 05/15/24 09:06 Dose: 40 mg Documented By: CHAY Heparin Sodium (Porcine) (Heparin Sodium,Porcine 5,000 Unit/Ml Vial) 5,000 unit SUBCUT Q8H [facility] Last Admin: 05/15/24 09:06 Dose: 5,000 unit Documented By: CHAY Lactulose (Lactulose 20 Gm/30 Ml Solution) 30 gm PO TID [facility] Last Admin: 05/15/24 09:07 Dose: 30 gm Documented By: CHAY Magnesium Hydroxide (Milk Of Magnesia 30 Ml Oral.Susp) 30 ml PO DAILY PRN PRN Reason: Constipation Melatonin (Melatonin 3 Mg Tablet) 6 mg PO BEDTIME PRN PRN Reason: Insomnia Last Admin: 05/14/24 21:15 Dose: 6 mg Documented By: ELIAS Methadone HCl (Methadone Hcl 20 Mg/2 Ml Oral.Conc) 40 mg PO DAILY@0800 [facility] Omeprazole (Omeprazole 40 Mg Capsule.Dr) 40 mg PO BID@0630,1630 [facility] Last Admin: 05/15/24 05:29 Dose: 40 mg Documented By: ELIAS Ondansetron HCl (Ondansetron Hcl 4 Mg/2 Ml Vial) 4 mg IVPUSH Q8H PRN PRN Reason: Nausea and Vomiting Ondansetron HCl (Ondansetron Odt 4 Mg Tab.Rapdis) 4 mg TRANSLINGU Q4H PRN PRN Reason: Nausea and Vomiting Sodium Chloride (0.9 % Sodium Chloride Flush 3 Ml Syringe) 3 ml IVFLUSH QSHIFT [facility] Last Admin: 05/15/24 09:07 Dose: Not Given Documented By: CHAY Non-Admin Reason: No Access Spironolactone (Spironolactone 25 Mg Tablet) 50 mg PO BID@0900,1800 [facility]; Protocol Last Admin: 05/15/24 09:06 Dose: 50 mg Documented By: CHAY Thiamine HCl (Thiamine Hcl 100 Mg Tablet) 100 mg PO DAILY [facility] Last Admin: 05/15/24 09:06 Dose: 100 mg Documented By: CHAY Labs 05/14/24 05:59 05/14/24 05:59 Assessment and Plan (1) Opioid use disorder: Status: Acute (2) Localized swelling of both lower legs: Status: Acute Plan 68yo M with 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, ongoing polysubstance abuse presenting with severe leg edema causing difficulty ambulating leg edema due to decompensated cirrhosis + chronic venous stasis - status post IV Lasix, continue PO furosemide 40 mg daily, and spironolactone 50mg bid , stable BMP and renal function acute hypoxic resp failure due to fluid overload - resolved, continue diuretics as above decompensated cirrhosis with hx portal vein thrombosis, portal HTN gastropathy, pancytopenia; hx TIPS - continue lactulose, strongly recommend to abstain from alcohol AUD - thiamine, folate, counseling done OUD - Addiction Medicine consulted; on methadone 40 mg daily; HIV negative; HCV viral load pending Class 3 obesity recommend low-calorie diet. VTE ppx - UFH dispo - STR In my clinical judgment, the patient requires continued inpatient hospitalization for the following reasons: placement waiting for authorization Quality Stroke Does the patient have a stroke diagnosis?: No VTE Prior VTE?: No VTE Risk Level:: Medical - moderate - high VTE Device Contraindication: Treatment Not Indicated VTE Drug Contraindication: N/A - Med Ordered
--- NOTE | 2024-05-15 15:42 | MHC.CM.PN ---
[facility] and [facility] were both contacted multiple times today. To answer or return call received from either facility. They must be closed for Veterans day today. CM will attempt to reach the facilities to arrange discharge tomorrow.
[2024-05-15] MEDS: 0.9 % Sodium Chloride Flush 3 ML SYRINGE IVFLUSH (15:48)
[2024-05-15 16:00] VITALS: BP 122/62; PULSE 72; RESP 14; TEMP 36.8; O2SAT 96
[2024-05-15 17:15] VITALS: BP 125/63
[2024-05-15 17:59] LABS: HCV Log PCR <1.18 NOT DETECTED Log IU/mL (NOT DETECTED); HepC Viral Load <15 NOT DETECTED IU/mL (NOT DETECTED)
[2024-05-15 20:00] VITALS: BP 125/60; PULSE 78; RESP 18; TEMP 37.7; O2SAT 95
[2024-05-15] MEDS: Melatonin 3 MG TABLET 6 MG PO (21:38)
[2024-05-15] MEDS: Acetaminophen 325 MG TABLET 650 MG PO (21:38)
[2024-05-16] VITALS (10 sets, daily range): BP systolic 108–123; BP diastolic 62–89; PULSE 73–87; RESP 16–18; TEMP 36.3–37.3; O2SAT 93–97
[2024-05-16] MEDS: Heparin Sodium,Porcine 5,000 UNIT/ML VIAL 5000 UNIT SUBCUT ×4 (00:16→23:44)
[2024-05-16] MEDS: Omeprazole 40 MG CAPSULE.DR PO ×2 (05:51→16:13)
[2024-05-16] MEDS: methADONE HCl 20 MG/2 ML ORAL.CONC 40 MG PO (07:32)
[2024-05-16] MEDS: Spironolactone 25 MG TABLET 50 MG PO ×2 (08:23→17:40)
[2024-05-16] MEDS: Furosemide 40 MG TABLET PO (08:24)
[2024-05-16] MEDS: Folic Acid 1 MG TABLET PO (08:24)
[2024-05-16] MEDS: Thiamine HCL 100 MG TABLET PO (08:24)
--- NOTE | 2024-05-16 15:31 | P.PNIM_ITS ---
Subjective Subjective Date of Service: 05/16/24 Interval History: Being followed for bilateral lower extremity edema/alcohol and opiate use disorder Denies symptoms of shortness of breath, no lightheadedness, no dizziness tolerating diet with no nausea, no vomiting or diarrhea lower extremity edema has resolved. Review of Systems All other symptoms reviewed and are negative. Physical Exam 2 Vital Signs: Vital Signs: Last Vital Signs Temp 97.3 F 05/16/24 08:12 Pulse 87 05/16/24 08:12 Resp 18 05/16/24 08:12 BP 123/89 05/16/24 08:24 Pulse Ox 97 05/16/24 08:12 O2 Del Method Room Air 05/16/24 08:12 O2 Flow Rate 2 05/10/24 16:26 BMI result Body Mass Index 42.3 Const: Other: Gen: in no acute distress HEENT: sclera anicteric, moist mucus membranes Neck: supple Lungs: clear to auscultation bilaterally Heart: regular rate and rhythm, no murmurs Abd: soft, non-tender, non-distended, obese Ext: Bilateral lower extremity edema resolved, chronic venous stasis skin changes unchanged Skin: warm/well-perfused Neuro: alert and oriented x3, no focal findings Psych: appropriate affect Objective Data Active Medications Acetaminophen (Acetaminophen 325 Mg Tablet) 650 mg PO Q6H PRN PRN Reason: Pain, Mild (Pain Scale 1-3), fever or headache Last Admin: 05/15/24 21:38 Dose: 650 mg Documented By: PIERCE Comments: given per pt request Calcium Carbonate (Calcium Carbonate 750 Mg Tab.Chew) 750 mg PO Q4H PRN PRN Reason: Heartburn Folic Acid (Folic Acid 1 Mg Tablet) 1 mg PO DAILY [facility] Last Admin: 05/16/24 08:24 Dose: 1 mg Documented By: CHAY Furosemide (Furosemide 40 Mg Tablet) 40 mg PO DAILY [facility]; Protocol Last Admin: 05/16/24 08:24 Dose: 40 mg Documented By: CHAY Heparin Sodium (Porcine) (Heparin Sodium,Porcine 5,000 Unit/Ml Vial) 5,000 unit SUBCUT Q8H [facility] Last Admin: 05/16/24 07:34 Dose: 5,000 unit Documented By: CHAY Lactulose (Lactulose 20 Gm/30 Ml Solution) 30 gm PO TID [facility] Last Admin: 05/16/24 08:24 Dose: Not Given Documented By: CHAY Non-Admin Reason: Patient Refused Magnesium Hydroxide (Milk Of Magnesia 30 Ml Oral.Susp) 30 ml PO DAILY PRN PRN Reason: Constipation Melatonin (Melatonin 3 Mg Tablet) 6 mg PO BEDTIME PRN PRN Reason: Insomnia Last Admin: 05/15/24 21:38 Dose: 6 mg Documented By: PIERCE Methadone HCl (Methadone Hcl 20 Mg/2 Ml Oral.Conc) 40 mg PO DAILY@0800 [facility] Last Admin: 05/16/24 07:32 Dose: 40 mg Documented By: CHAY Co-signed By: BREE Omeprazole (Omeprazole 40 Mg Capsule.Dr) 40 mg PO BID@0630,1630 [facility] Last Admin: 05/16/24 05:51 Dose: 40 mg Documented By: BLAYNE Ondansetron HCl (Ondansetron Hcl 4 Mg/2 Ml Vial) 4 mg IVPUSH Q8H PRN PRN Reason: Nausea and Vomiting Ondansetron HCl (Ondansetron Odt 4 Mg Tab.Rapdis) 4 mg TRANSLINGU Q4H PRN PRN Reason: Nausea and Vomiting Sodium Chloride (0.9 % Sodium Chloride Flush 3 Ml Syringe) 3 ml IVFLUSH QSHIFT [facility] Last Admin: 05/16/24 08:24 Dose: Not Given Documented By: CHAY Non-Admin Reason: No Access Spironolactone (Spironolactone 25 Mg Tablet) 50 mg PO BID@0900,1800 [facility]; Protocol Last Admin: 05/16/24 08:23 Dose: 50 mg Documented By: CHAY Thiamine HCl (Thiamine Hcl 100 Mg Tablet) 100 mg PO DAILY [facility] Last Admin: 05/16/24 08:24 Dose: 100 mg Documented By: CHAY Labs 05/14/24 05:59 05/14/24 05:59 Labs: Laboratory Results - last 24 hr 05/12/24 05:33 Hep C Viral Load <15 NOT DETECTED Hep C Viral Load Log <1.18 NOT DETECTED Assessment and Plan (1) Opioid use disorder: Status: Acute (2) Localized swelling of both lower legs: Status: Acute Plan 68yo M with 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, ongoing polysubstance abuse presenting with severe leg edema causing difficulty ambulating leg edema due to decompensated cirrhosis + chronic venous stasis - status post IV Lasix, continue PO furosemide 40 mg daily, and spironolactone 50mg bid , stable BMP and renal function acute hypoxic resp failure due to fluid overload - resolved, continue diuretics as above decompensated cirrhosis with hx portal vein thrombosis, portal HTN gastropathy, pancytopenia; hx TIPS - continue lactulose, strongly recommend to abstain from alcohol AUD - thiamine, folate, counseling done OUD - Addiction Medicine consulted; on methadone 40 mg daily; HIV negative; HCV viral load pending Class 3 obesity recommend low-calorie diet. VTE ppx - UFH dispo - STR In my clinical judgment, the patient requires continued inpatient hospitalization for the following reasons: Safe disposition, placement waiting for authorization Quality Stroke Does the patient have a stroke diagnosis?: No VTE Prior VTE?: No VTE Risk Level:: Medical - moderate - high VTE Device Contraindication: Treatment Not Indicated VTE Drug Contraindication: N/A - Med Ordered
--- NOTE | 2024-05-16 15:32 | MHC.CM.PN ---
CM CONTINUES TO AWAIT APPROVAL FROM [employer] FOR GUEST DOSING, THIS CM SPOKE WITH [employer] INTAKE (GRADY) WHO NEEDED MORE INFORMATION REGARDING PT'S NEED FOR PLACEMENT IN [facility]. CM WILL CONTINUE TO FOLLOW.
[2024-05-16] MEDS: Lactulose 20 GM/30 ML SOLUTION 30 GM PO (16:13)
[2024-05-16] MEDS: Acetaminophen 325 MG TABLET 650 MG PO (17:41)
[2024-05-16] MEDS: Melatonin 3 MG TABLET 6 MG PO (20:30)
[2024-05-17 03:02] VITALS: BP 103/59; PULSE 68; RESP 16; TEMP 36.7; O2SAT 94
[2024-05-17] MEDS: Omeprazole 40 MG CAPSULE.DR PO (05:46)
[2024-05-17 07:02] LABS: Anion Gap 10 (12-20); Blood Urea Nitrogen 11 mg/dL (9-16); Calcium 8.7 mg/dL (8.4-10.2); Carbon Dioxide 25 mmol/L (22-29); Chloride 103 mmol/L (96-108); Estimated Glomerular Filt Rate > 60; Glucose Random 186 mg/dL (60-115); Potassium 4.1 mmol/L (3.3-5.1); Sodium 134 mmol/L (135-145)
[2024-05-17] MEDS: methADONE HCl 20 MG/2 ML ORAL.CONC 40 MG PO (07:26)
[2024-05-17] MEDS: Thiamine HCL 100 MG TABLET PO (07:27)
[2024-05-17] MEDS: Folic Acid 1 MG TABLET PO (07:27)
[2024-05-17 07:30] VITALS: BP 115/68
[2024-05-17] MEDS: Furosemide 40 MG TABLET PO (07:30)
[2024-05-17] MEDS: Spironolactone 25 MG TABLET 50 MG PO (07:30)
[2024-05-17 07:31] VITALS: BP 115/68; PULSE 73; RESP 18; TEMP 37.1; O2SAT 95
[2024-05-17] MEDS: Heparin Sodium,Porcine 5,000 UNIT/ML VIAL 5000 UNIT SUBCUT (07:35)
--- NOTE | 2024-05-17 11:58 | MHC.CM.PN ---
Addendum entered by Gisella Degroot 05/17/24 12:21: FINAL IMM DELIVERED Original Note: DP: PT HAS BEEN MEDICALLY CLEARED FOR DC TO STR AT [facility] . [facility] HAS APPROVED GUEST DOSING PER [facility] IN INTAKE. RN/MD MADE AWARE. BLS TRANSPORT BOOKED FOR 4:30 PM VIA [email or web address]. CENTER MADE AWARE OF TRANSPORT TIME. [facility] HAS APPROVED TRANSPORT AND BOOKING ID # : [id number].
[2024-05-17 12:00] VITALS: PULSE 84
--- NOTE | 2024-05-17 12:05 | PM.DS ---
DS: Providers Provider Date of Service: 05/17/24 Date of admission: 05/10/24 15:48 Date of discharge: 05/17/24 Primary care physician: Gaye Physician Consults: 05/10/24 18:02 Addiction Medicine Routine Consulting Provider: Fabricio Covering Reason for consultation: etoh/opiate use disorder Has provider been notified: No 05/12/24 11:19 Consult to Wound Care Routine Reason for consultation: bilateral lower legs edema, scaly, discoloration DS: Diagnosis Discharge Diagnosis (1) Opioid use disorder: Status: Acute (2) Localized swelling of both lower legs: Status: Acute DS: Summary Hospital Course Hospital Course: History of presenting illness: Date of Service: 05/10/24 Chief Complaint: Bilateral leg pain and difficulty with ambulation 69-year-old male with past medical history of hypertension, hepatic cirrhosis, pancytopenia, portal venous thrombosis, polysubstance use, GERD in long history of medication compliance was picked up by EMS from [facility] in [place] since patient is homeless, due to increased redness and bilateral lower extremity swelling and pain with ambulation, patient denies associated shortness of breath, no fevers, no chills, denies nausea, no vomiting, no diarrhea or abdominal discomfort on arrival he was noted to have tachycardia 116, pulse ox 90% on room air, CBC showed WBC 2.5, hematocrit 33.8 and a platelet count of 69 close to baseline, normal electrolytes and renal function, elevated blood sugar 166, normal liver enzymes, CRP 1.28, BNP 36, albumin of 3.1, venous Doppler study bilateral lower extremity showed no DVT but showed significant subcutaneous edema, chest x-ray showed slight distention of pulmonary vessels and mild interstitial infiltrate, cardiomegaly, raise concern for mild congestive changes, patient treated in the ED with 1 dose of IV Lasix and now being admitted to [facility] due to worsening bilateral lower extremity edema and difficulty in ambulation. In the ED when taking of patient shoes and socks empty heroin packets were found in the socks patient admitted to snorting heroin daily last use yesterday. Hospital course: 68yo M with 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, ongoing polysubstance abuse, presented with severe leg edema causing difficulty ambulating, likely due to decompensated cirrhosis and chronic venous stasis, patient treated with IV Lasix and spironolactone with good affect, acute hypoxic respiratory failure likely due to fluid overload resolved with treatment, since patient remains hemodynamically stable he has been discharged on Lasix 40 mg daily, spironolactone 50 mg twice daily, and in regard to decompensated cirrhosis with history of portal vein thrombosis, portal hypertension, gastropathy and pancytopenia he is recommended to continue lactulose and strongly recommended to abstain from alcohol, patient is being discharged to rehab facility for less than 30 days due to difficulty in ambulation with unsteady gait. In regard to opiate use disorder patient seen by Addiction Team and has been placed on methadone 40 mg daily he is HIV is negative, and hepatitis-C viral load is less than 15 not detected Class 3 obesity recommend low-calorie diet. Time Attestation Discharge Coordination Time (in mins): 40 Quality: Safe Use of Opioids Does Pt have an Active Cancer Diagnosis on the Problem List?: No Quality: Stroke Does the patient have a stroke diagnosis?: No Physical Exam Vital Signs: Vital Signs: Last Vital Signs Temp 98.7 F 05/17/24 07:31 Pulse 73 05/17/24 07:31 Resp 18 05/17/24 07:31 BP 115/68 05/17/24 07:31 Pulse Ox 95 05/17/24 07:31 O2 Del Method Room Air 05/17/24 07:31 O2 Flow Rate 2 05/10/24 16:26 BMI result Body Mass Index 42.3 Const: Other: Gen: in no acute distress HEENT: sclera anicteric, moist mucus membranes Neck: supple Lungs: clear to auscultation bilaterally Heart: regular rate and rhythm, no murmurs Abd: soft, non-tender, non-distended, obese Ext: Bilateral lower extremity edema resolved, chronic venous stasis skin changes unchanged Skin: warm/well-perfused Neuro: alert and oriented x3, no focal findings Psych: appropriate affect DS: Data Data Completed and Pending Completed studies during hospitalization [Text1]: Procedures Detoxification Services for Substance Abuse Treatment (10/28/23) Insertion of Endotracheal Airway into Trachea, Via Natural or Artificial Opening (08/08/23) Insertion of Infusion Device into Lower Vein, Percutaneous Approach (08/08/23) Insertion of Infusion Device into Upper Vein, Percutaneous Approach (08/08/23) Introduction of Mineral-based Topical Hemostatic Agent into Upper GI, Via Natural or Artificial Opening Endoscopic, [employer] (08/08/23) Introduction of Vasopressor into Central Vein, Percutaneous Approach (08/08/23) Respiratory Ventilation, 24-96 Consecutive Hours (08/08/23) Transfusion of Nonautologous Platelets into Peripheral Vein, Percutaneous Approach (08/08/23) Labs on day of discharge: Laboratory Results - last 24 hr 05/17/24 05:35 Hold Purple Top SEE NOTE Sodium 134 L Potassium 4.1 D Chloride 103 Carbon Dioxide 25 Anion Gap 10 L BUN 11 Creatinine 0.81 Estim Creat Clear Calc 99.0 Estimated GFR > 60 Random Glucose 186 H Calcium 8.7 Discharge Plan Discharge Anticipated Discharge Date/Time: 05/17/24 11:59 Patient Disposition: [facility] Discharge Diagnosis: Decompensated cirrhosis with pancytopenia Bilateral leg edema Acute hypoxic respiratory failure due to fluid overload Referrals: [facility] [Outside] - 1 Week (TRANSFER FOR SHORT TERM REHAB) Physician,None [Primary Care Provider] - 1 Week Discharge Medications: New furosemide 40 mg Tablet 40 mg PO DAILY Qty: 30 0RF Protocol: Hold for SBP< HOLD for SBP < : 90 spironolactone 25 mg Tablet 50 mg PO BID@0900,1800 Qty: 60 0RF Protocol: Hold for SBP< HOLD for SBP < : 90 Continued thiamine HCl (vitamin B1) 100 mg tablet 100 mg PO DAILY Qty: 30 0RF pantoprazole [Protonix] 40 mg tablet,delayed release (DR/EC) 40 mg PO BID@0630,1630 lactulose 20 gram/30 mL solution 30 g PO TID Qty: 1500 0RF Rx Instructions: Hold dose for more than 2 bowel movements per day acetaminophen 325 mg Tablet 650 mg PO Q6H PRN (Reason: Pain) Discontinued spironolactone 100 mg tablet 100 mg PO BID Discharge Orders: Discharge Order (Routine); Ordered 05/17/24 Ordered By: Zhou Presley Diet: Low salt diet Activity on Discharge: As tolerated Stand Alone Forms: Patient Portal Discharge page Print Language: Bur[place]ian Care Plan Goals: Fluid overload resolved continue Aldactone 50 mg 1 tablet twice daily and Lasix 40 mg daily Continue lactulose hold for more than 2 bowel movements per day Being discharged for less than 30 days Continue methadone 40 mg daily Health Concerns: Alcohol use disorder strongly recommend to abstain from alcohol Opiate use disorder Decompensated cirrhosis with history of portal vein thrombosis/portal hypertensive gastropathy and pancytopenia Plan of Treatment: Outpatient follow-up with primary care physician call for appointment Assessment: As above
--- NOTE | 2024-05-17 13:11 | PC.NURSE ---
[facility]. D/C summary completed.
[2024-05-17 16:00] VITALS: BP 120/68; PULSE 73; RESP 16; TEMP 37; O2SAT 96
== END 2024-05-17 16:48 | disposition skilled nursing facility (03) | DRG 432 ==
LOC: HO.ED 15:06 → HO.EDOVER 15:57 → HO.S3 19:42
PROVIDERS: Family Medicine; Physician Assistant Medical; Admitting Provider Hospitalist; Emergency Provider Emergency Medicine; Visit Provider Hospitalist
DX: K70.30 Alcoholic cirrhosis of liver without ascites (principal); I81 Portal vein thrombosis; J96.01 Acute respiratory failure with hypoxia; K76.6 Portal hypertension; Z59.02 Unsheltered homelessness; D61.818 Other pancytopenia; Z68.41 Body mass index [BMI] 40.0-44.9, adult; F11.20 Opioid dependence, uncomplicated; I87.323 Chronic venous hypertension (idiopathic) with inflammation of bilateral lower extremity; E66.813 Obesity, class 3; Z71.3 Dietary counseling and surveillance; K31.89 Other diseases of stomach and duodenum; Z86.19 Personal history of other infectious and parasitic diseases; F17.210 Nicotine dependence, cigarettes, uncomplicated; Z71.6 Tobacco abuse counseling; Z91.148 Patient's other noncompliance with medication regimen for other reason; Z79.899 Other long term (current) drug therapy
CPT/HCPCS: 36415; 71045; 80048; 80053; 80307; 81001; 83036; 83735; 83880; 85025; 85027; 85610; 85652; 86140; 87389; 87522; 93005; 93970; 97116; 97162; 99285; J1644; J1940

== ENCOUNTER → 2024-05-10 12:15 | Outpatient (BNV) | payer OTHER, SELFPAY | PROVIDERS: Admitting Provider Hospitalist; Emergency Provider Emergency Medicine; Visit Provider Internal Medicine Cardiovascular Disease | DX: R94.31 Abnormal electrocardiogram [ECG] [EKG] (principal) | CPT/HCPCS: 93010 ==

== ENCOUNTER → 2024-05-10 15:48 | Outpatient (BNV) | payer OTHER, SELFPAY | PROVIDERS: Admitting Provider Hospitalist; Emergency Provider Emergency Medicine; Visit Provider Hospitalist | DX: F11.90 Opioid use, unspecified, uncomplicated (principal); R22.43 Localized swelling, mass and lump, lower limb, bilateral | CPT/HCPCS: 99223; 99232; 99239 ==

== ENCOUNTER → 2024-05-10 15:48 | Outpatient (BNV) | payer OTHER, SELFPAY | PROVIDERS: Admitting Provider Hospitalist; Emergency Provider Emergency Medicine; Visit Provider Nurse Practitioner Psychiatric/Mental Health | DX: F11.90 Opioid use, unspecified, uncomplicated (principal) | CPT/HCPCS: 99221; 99232 ==

== ENCOUNTER 2024-07-30 08:09 | Inpatient (IN) | payer OTHER, SELFPAY ==
[2024-07-30] VITALS (7 sets, daily range): BP systolic 113–139; BP diastolic 70–86; PULSE 83–123; RESP 16–20; TEMP 36.6–36.9; O2SAT 94–99; BMI 42.0
--- NOTE | ~2024-07-30 | US_ITS ---
Ultrasound paracentesis History: Ascites. Risks and benefits and possible complications were discussed with the patient and consent form was signed. A safe pocket of ascitic fluid was identified using ultrasound guidance, and the overlying skin was marked. The abdomen prepped and draped in sterile fashion. 1% lidocaine was used as a local anesthetic. Using ultrasound guidance, a 5 fr catheter was placed into the ascitic pocket. 1.4 liters of yellow fluid was removed passively. The catheter was then removed. A few medical customer service representative images from before and after the examination were obtained. The procedure was performed by Giuliano Acosta PA-C and supervised by Dr. Parks. US/US paracentesis abd w/image Impression: Ultrasound-guided paracentesis as described above. No immediate complications Electronically signed by: Varun Parks MD 08/09/2024 01:47 PM GASPER
--- NOTE | ~2024-07-30 | US_ITS ---
CLINICAL HISTORY: +dopplers to check PV + splen vein thrombosis, asc US abdomen limited Comparison: 10/28/2023 Findings: Fatty infiltration of the liver without focal abnormality. Right lobe 10.6 cm length. Main portal vein antegrade. Splenic vein is also patent. Cholelithiasis with gallbladder wall thickening. Common duct not measured. Gallbladder wall: 3.5 mm. Minimal pericholecystic fluid noted. Ascites noted throughout the abdomen. Impression: Cholelithiasis with gallbladder wall thickening Probable cholecystitis, please correlate Portal vein and splenic vein are patent Ascites This document has been electronically signed by: Ruddy Guevara MD on 07/31/2024 22:36:13
--- NOTE | ~2024-07-30 | US_ITS ---
Please refer to combined report dictated with the Ultrasound abdomen limited of same day. Electronically signed by: Jose Mae MD 08/01/2024 02:22 PM [facility]
--- NOTE | ~2024-07-30 | US_ITS ---
CLINICAL HISTORY: SWELLING Venous duplex ultrasound bilateral lower extremity Comparison: US/SR - US VENOUS DUPLEX LE BI - 05/10/24 13:38 EST Findings: Technically limited study related to extent of soft tissue edema as on prior. Allowing for such, no apparent deep venous thrombosis on either side. Similar appearing bilateral Estrada's cysts, right currently 7 x 15 x 42 mm, left 10 x 21 x 62 mm, not significantly changed allowing for technical/measurement variation. Bilateral inguinal lymph nodes, most demonstrating prominent fatty librado and thin cortices. One on the right is more hypoechoic without fatty hilum at 6 x 9 x 13 mm although based on short axis measurement reactive node is favored. This may have been present previously although less well demonstrated. IMPRESSION: No deep vein thrombosis evident on either side. Similar diffuse subcutaneous edema. Similar bilateral Estrada's cysts. Bilateral inguinal lymph nodes as noted. This document has been electronically signed by: Errol Torrez MD on 07/30/2024 11:31:04
--- NOTE | ~2024-07-30 | XR_ITS ---
CLINICAL HISTORY: chest pain 1 view chest x-ray Comparison: CR/SR - XR CHEST 1V - 05/10/24 12:19 EST Findings: Lower lung volumes. Similar interstitial prominence. No consolidation or effusion. Borderline cardiomegaly. No acute fracture. IMPRESSION: 1. No acute findings. This document has been electronically signed by: Errol Torrez MD on 07/30/2024 10:23:59
--- NOTE | 2024-07-30 08:36 | ECG_ITS ---
Test Reason : ble swelling Blood Pressure : */* mmHG Vent. Rate : 121 BPM Atrial Rate : 121 BPM P-R Int : 122 ms QRS Dur : 100 ms QT Int : 320 ms P-R-T Axes : 262 -48 2 degrees QTcB Int : 454 ms Normal sinus rhythm Left anterior fascicular block Possible Lateral infarct (cited on or before 10-May-2024) Abnormal ECG When compared with ECG of 10-May-2024 13:07, No significant changes seen Referred By: Gabriel Whittaker Electronically Signed By: ELODIA BROWN
--- NOTE | 2024-07-30 08:38 | ED_ITS ---
HPI - General Adult General Chief complaint: General Medical Stated complaint: BLE SWELLING,NO LASIX X3D,H/O CHF PER EMS Time Seen by Provider: 07/30/24 08:20 Source: patient Mode of arrival: EMS Limitations: no limitations History of Present Illness HPI narrative: This is a 69 years old male with history of polysubstance abuse, cirrhosis, pancytopenia, portal vein thrombosis presented to the emergency room complaining of generalized weakness malaise lower extremity edema Onset (ago): day(s) (2) Radiation: non-radiation Severity: moderate Pain Consistency: constant Relieving factors: none Exacerbating factors: none Associated symptoms: denies other symptoms Related Data Home Medications ?Medication ?Instructions ?Recorded ?Confirmed acetaminophen 325 mg tablet 650 mg PO Q6H PRN Pain 10/28/23 05/10/24 pantoprazole 40 mg tablet,delayed 40 mg PO BID@0630,1630 05/10/24 05/10/24 release (Protonix) Previous Rx's ?Medication ?Instructions ?Recorded thiamine HCl (vitamin B1) 100 mg 100 mg PO DAILY #30 tabs 07/26/23 tablet furosemide 40 mg tablet 40 mg PO DAILY #30 tabs 05/14/24 spironolactone 25 mg tablet 50 mg PO BID@0900,1800 #60 tabs 05/14/24 lactulose 20 gram/30 mL oral 30 g (45 mL) PO TID Constipation 05/17/24 solution #1,500 mL Allergies Allergy/AdvReac Type Severity Reaction Status Date / Time No Known Allergies Allergy Verified 07/30/24 08:26 [No Known Allergies*] Review of Systems 2 Constitutional: Constitutional: Reports no additional constitutional complaints Eyes: Eyes: Reports no additional eye complaints Gastrointestinal: Gastrointestinal: Reports other (bloating) [facility] Past Medical History Medical History Polysubstance abuse Splenomegaly Pancytopenia Portal vein thrombosis Cirrhosis HTN (hypertension) Surgical History S/P TIPS (transjugular intrahepatic portosystemic shunt) Social History Social History Household Members: None Housing: Homeless Do you presently have visiting nurse or other home services: No Unable to assess alcohol history related to: Unable to respond Alcohol intake: current Alcohol intake frequency: 3 or more drinks per day Alcohol type: beer Comment: 1:1 sitter Patient Tobacco Use Status: Current everyday Tobacco user Tobacco use type: Cigarette Cigarettes Per Day: 2 Smoked in Last 30 Days: No e-Cigarette/Vaping Use: Never Used Second Hand Smoke Exposure: No Use of substances other than those prescribed or required for medical reasons: Yes Substance Use Type: Heroin Substance Use Frequency: Daily Substance Use Frequency Other:: 4 bags Last Used Substance: Just Prior to Admission Advance Directives: Yes Advance Directives on File: Yes Advance Directives Date on File: 08/20/23 Do you have a plan to hurt others: No Plan service: No Current occupational status: retired Current occupation: rt handed Physical Exam ED Vital Signs: Vital Signs - 24 hr 07/30/24 08:25 07/30/24 12:48 Temperature 98.2 F 98.5 F Pulse Rate 122 H 83 Respiratory Rate 16 20 Blood Pressure 131/86 139/78 Pulse Oximetry 98 94 Oxygen Delivery Method Room Air Room Air BMI result Body Mass Index 42.0 No acute distress bit tachycardic Const General: cooperative, no acute distress and well developed Nutritional Appearance: obese Orientation/consciousness: patient oriented x3 HENMT Head: Yes normal to inspection Ears: hearing grossly normal bilaterally General nose exam: Normal external nose present Mouth: Normal oral and palatal mucosa present Neck Other: Supple neck full room Chest Chest palpation & inspection: normal inspection of the chest Resp Effort & Inspection: normal respiratory effort Cardio Jugular venous distension: no JVD Rate: regular rate and tachycardic Rhythm: regular rhythm GI Other: Abdomen is obese, he has ascites Inspection: Yes normal to inspection Percussion: Yes normal to percussion Auscultation: normal bowel sounds Skin General skin exam: no rashes or lesions noted and elasticity normal Neuro General: patient oriented x3 Extrem Other: Bilateral lower extremity swelling and discoloration he does not have pulses detected by me Course Reevaluation(s) Reevaluation #1: got lasix IV inserte under US guided rt brachial vein long catheter good flash good blood return Time: 15:01 Medications Administered Discontinued Medications Generic Name Dose Route Start Last Admin Trade Name Freq PRN Reason Stop Dose Admin Furosemide 40 mg 07/30/24 13:46 07/30/24 14:03 Furosemide 40 Mg/4 Ml Vial IVPUSH 07/30/24 13:47 40 mg STAT STA Administration Protocol Procedures EJ/Peripheral Line Arm R: Time Out Performed: Yes Skin Cleansed in Sterile Fashion: Yes Size (gauge): 20 IV Secured and Dressing Applied: Yes Patient Tolerated Procedure: well Additional Comments: asked by RN to place IV difficult IV access Under US guided cannulated rt brachial vein with 20 G catheter Introcan 1 and 3/4 Inch good flash good blood return Medical Decision Making Medical Decision Making [facility] Narrative: Patient is here with lower extremity edema and tachycardia we will obtain labs ultrasound and reassess Differential Diagnosis Differential Diagnoses: The differential diagnosis associated with the presentation includes Fluid overload/congestive heart failure/DVT Admission/Observation Consideration of admission/observation: Escalation of care including admission/observation considered Consult Healthcare Provider Management of the patient was discussed with: Hospitalist (DR Castillo) Lab Data [facility] Lab Attestation statement: I reviewed the patient's lab results. 07/30/24 08:49 07/30/24 08:49 Labs: Lab Results 07/30/24 07/30/24 Range/Units 08:49 09:24 WBC 3.0 L (4.8-10.8) X10*3/uL RBC 3.14 L (4.60-5.80) X10*6/uL Hgb 8.5 L D (14.0-18.0) g/dl Hct 27.5 L (42.0-52.0) % MCV 87.6 (80.0-98.0) fL MCH 27.1 (27.0-33.0) pg MCHC 30.9 L (31.0-36.0) g/dl RDW 18.2 H (11.0-16.0) % Plt Count 98 L D (160-400) X10*3/uL MPV 10.8 (9.4-12.4) fL Immature Gran % (Auto) 0.7 H (0.0-0.4) % Neut % (Auto) 72.9 (45-73) % Lymph % (Auto) 16.1 L (20-40) % [place] % (Auto) 6.3 (2-11) % Eos % (Auto) 3.0 (0-4) % Baso % (Auto) 1.0 (0-2) % Lymph # (Auto) 0.5 L (1.2-4.9) X10*3/uL [place] # (Auto) 0.2 (0.1-1.2) X10*3/uL Eos # (Auto) 0.1 (0.0-0.4) X10*3/uL Baso # (Auto) 0.0 (0.0-0.2) X10*3/uL Abs Immat Gran (auto) 0.02 (0.00-0.03) X10*3/uL Absolute Neuts (auto) 2.2 (2.0-8.3) x10*3/uL Absolute Nucleated RBC 0.000 (0.0-0.012) X10*3/uL Nucleated RBC % (auto) 0.0 (0.0-0.2) /100WBC PT 17.5 H (10.9-12.4) SEC INR 1.5 H (0.9-1.1) APTT 25.1 L (26.0-36.8) SEC Sodium 136 (135-145) mmol/L Potassium 4.9 (3.3-5.1) mmol/L Chloride 108 (96-108) mmol/L Carbon Dioxide 22 (22-29) mmol/L Anion Gap 11 L (12-20) BUN 7 L (9-16) mg/dL Creatinine 0.68 (0.5-1.4) mg/dL Estim Creat Clear Calc 117.4 Estimated GFR > 60 Random Glucose 134 H (60-115) mg/dL Lactic Acid 1.5 (0.5-2.0) mmol/L Calcium 7.9 L D (8.4-10.2) mg/dL Total Bilirubin 1.5 H (0.0-1.0) mg/dL AST 48 H (5-37) U/L ALT 8 (0-40) U/L Alkaline Phosphatase 87 (39-117) U/L Troponin I High Sens 2.7 (<3.5-35.0) ng/L B-Natriuretic Peptide 56 (<100) pg/mL Total Protein 6.5 (6.5-8.0) g/dL Albumin 2.5 L (3.5-5.0) g/dL Lipase 35 (8-78) U/L Independent Interpretation I performed an independent interpretation of an: EKG and Plain X-Ray Interpretation: Electrocardiogram shows a sinus tachycardia with a rate of [address]-T changes Radiology Impression Discussion of test interpretation with radiology: I have reviewed the radiologist's reading. Radiologist Impression: NAD Independent Historian Clinical information obtained from an independent historian. History obtained from or confirmed by: EMS Chronic Conditions cirrhosis of the liver Social Determinants Patient?s care significantly limited by Social Determinants of Health including: Inadequate housing and Alcoholism and drug addiction in family Discharge Plan Discharge Clinical Impression: Edema of both lower legs, Pancytopenia, Anasarca Patient Disposition: Admitted As Inpatient Print Language: Bruneian
[2024-07-30 08:55] LABS: MANUAL DIFF FLAG NO
--- OUTSIDE RECORDS SUMMARY | 2024-07-30 09:01 | XMS_ITS ---
Author Organization [facility] Address [address] [place] [address] Care Team Providers Care Want Ad Supervisor Name Role Phone Michelle Fatima Primary Care Provider Unavailab Jose Antonio Koehler Unavailable [phone] Alyse Wells Unavailable Unavailable REASON FOR VISIT patient is at [facility] Encounters Encounter Location Date Provider Diagnosis [facility] [address] [place] [address] 07/15/2023 Jose Antonio Crawley PLAN OF TREATMENT No Information
--- OUTSIDE RECORDS SUMMARY | 2024-07-30 09:01 | XMS_ITS | Encounter Summary ---
Author Organization [email or web address] Address [address] [place] [address] Care Team Providers Care Relocation Coordinator Name Role Phone Maria Dolores Mcduffie MD Primary Care Provide r Encounter Details Date Type Department Care Team (Late st Contact Info) Description 12/03/2023 Telephone [facility] MEDICINE [address] [place], [place] [phone] Maria Dolores Mcduffie MD [address] [place], [place] [phone] Social History Tobacco Use Types Packs/Day Years Used Date Smoking Tobacco: Never Assessed Alcohol Answer Date Recorded Frequency of Alcohol Consumption Not on file 12/02/2023 Average Number of Drinks Not on file 024 Frequency of Binge Drinking Not on file 11/04 Score 0 12/02/2023 Depression Answer Date Recorded Patient Health Questionnaire-9 Score 0 12/02/2023 Patient Health Questionnaire-9 Score 0 12/02/2023 Last PHQ-9: Questionnaire Data Not on file 0 12/02/2023 Housing Stability Answer Date Recorded What is your housing situation today? I do not have housing (Staying with others, in a hotel, in a long-term, living outside on the street, on a beach, in a car, or in a park 12/02/[address] you li ve. Do you have problems with any of the following? None of the above 12/02/2023 Food Insecurity Answer Date Recorded Within the past 12 months, y ou worried that your food would run out before you got money to buy more: Never True 12/02/2023 Within the past 12 months,th e food you bought just didn't last and you didn't have enough money to get more: Never True Transportation Answer Date Recorded In the past 12 months, has l ack of transportation kept you from medical appts, meetings, work or from getting things needed for daily living? No 12/02/2023 Utilities Answer Date Recorded In the past 12 months, has t he electric, gas, oil or water company threatened to shut off services in your home? I am not sure 12/02/2023 Depression Answer Date Recorded Patient Health Questionnaire-2 Score 0 12/02/2023 Sex and Gender Information Value Date Recorded Sex Assigned at Male 10/27/2023 3:53 PM EDT Legal Sex Male 2:52 PM EST Gender Identity Male 10/27/2023 3:53 PM EDT Sexual Orientation Don't know 10/27/2023 3: 53 PM EDT documented as of this encounter Plan of Treatment Not on file documented as of this encounter Visit Diagnoses Not on filedocumented in this encounter Additional Health Concerns Assessment Noted Time PHQ-9 Depression Total Score: 0 12/02/19 9:50 AM EDT documented as of this encounter Care Teams Relocation Coordinator Relationship Specialty Start Date End Date Maria Dolores Mcduffie MD [address] [place] [address] PCP - General Internal Medicine 12/03/23 documented as of this encounter
[2024-07-30 09:02] LABS: Eosinophils Absolute Auto 0.1 X10*3/uL (0.0-0.4); Hematocrit 27.5 % (42.0-52.0); Hemoglobin 8.5 g/dl (14.0-18.0); Imm Gran Abs Auto 0.02 X10*3/uL (0.00-0.03); Imm Gran Pct Auto 0.7 % (0.0-0.4); Lymphocytes Absolute Auto 0.5 X10*3/uL (1.2-4.9); Lymphocytes Percent Auto 16.1 % (20-40); Mean Corpuscular HGB Conc 30.9 g/dl (31.0-36.0); Mean Corpuscular Hemoglobin 27.1 pg (27.0-33.0); Mean Corpuscular Volume 87.6 fL (80.0-98.0); Mean Platelet Volume 10.8 fL (9.4-12.4); Monocytes Absolute Auto 0.2 X10*3/uL (0.1-1.2); Monocytes Percent Auto 6.3 % (2-11); Neutrophils Absolute Auto 2.2 x10*3/uL (2.0-8.3); Neutrophils Percent Auto 72.9 % (45-73); Red Blood Count 3.14 X10*6/uL (4.60-5.80); Red Cell Distribution Width 18.2 % (11.0-16.0)
--- OUTSIDE RECORDS SUMMARY | 2024-07-30 09:02 | XMS_ITS | Patient Health Record ---
Author Organization [facility] Address [address] [place] [address] Care Team Providers Care Copy Technician Name Role Phone Alvarolaly Michelle Primary Care Provider Unavailab Jose Antonio Koehler Unavailable [phone] Alyse Wells Unavailable Unavailable ALLERGIES No Known [...] C without hepatic coma (B18.2) Active confirmed 790978449 Problem Alcoholic cirrhosis of liver without ascites (K70.30) Active confirmed 993159092 Problem Gastric varices (I86.4) Active confirmed 27587492 Problem Esophageal varices without bleeding (I85.00) Active confirmed 937985606 Problem Other cirrhosis of liver (K74.69) Active confirmed 95061554 Problem 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) Active confirmed 455017579 PLAN OF TREATMENT Pending Test Test Name Order Date CHEM 7 PROFILE 09/24/2021 CHEM 7 PROFILE 04/01/2022 LIVER PROFILE 09/25/2015 LIVER PROFILE 11/14/2015 LIVER PROFILE 09/24/2021 LIVER PROFILE 04/01/2022 LIVER PROFILE 10/23/2015 LIVER PROFILE 12/26/2015 CBC w DIFF 09/25/2015 CBC w DIFF 11/14/2015 CBC w DIFF 09/24/2021 CBC w DIFF 04/01/2022 CBC w DIFF 10/23/2015 ALPHA-FETOPROTEIN,TUMOR MARKER HEPATITIS C VIRAL LOAD 10/23/2015 HEPATITIS C VIRAL LOAD 12/26/2015 HEPATITIS C VIRAL LOAD 09/25/2015 HEPATITIS C VIRAL LOAD 11/14/2015 CT COLON SCREENING NO CONTRAST 6 US ABD 09/24/2021 Prothrombin Time INR 04/01/2022 Ammonia 04/01/2022 Ammonia 09/24/2021 Alpha Fetoprotein 09/24/2021 US abdomen complete 04/01/2022 Insurance Providers Payer Name Payer Address Payer Phone Subscriber Number Group Number Insured Name Patient Relationship to Insured Coverage Start Date Coverage End Date [facility] [address] [address] [place] [address] [id number] MERLIN REZA Self - patient is the insured [employer] [facility] [address] [place] [address] [id number] MERLIN REZA Self - patient is the insured MEDICAL (GENERAL) HISTORY Medical History History ICD Code Chronic hepatitis C and cirr hosis--Genotye 1b- he was treated with several months of non-pegylated interferon and ribavirin in 2000, but he subsequently stopped that on his own and we were never able to see whether or not he had a response to it; partial portal vein thrombosis-CT scan was negative for any mass--admitted to [facility] early 07/2015 for an UGI bleed due to gastric varices--could not control endoscopically and was transferred to [facility]--TIPS was unsuccessful due to the partial portal vein thrombosis---varices were treated with a Balloon-occluded Retrograde Transvenous Obliteration(BRTO) by the IR department at [facility]--transferred to [facility] rehab 07/18/15 and D/C'd to home on approx. 08/07/15. He has been treated with 12 weeks of Harvoni for the Hepatitis C through the end of December,---nondetectable Hepatitis C viral load in 04/2016 and normal LFT's. He is being evaluated at [facility] Liver Transplant Dept and is on the transplant list. 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 He was dismissed from the tr ansplant program in December of 2020 due to continued substance abuse issues. Surgical History Surgery Date(Month/Year) Umbilical hernia TIPS
--- OUTSIDE RECORDS SUMMARY | 2024-07-30 09:02 | XMS_ITS | Clinical Summary ---
Author Organization [facility] Address [address] [place] [address] Care Team Providers Care Osteopathic Resident Name Role Phone Nemo Berry MD Primary Care Provider Social History Tobacco Use Types Packs/Day Years Used Date Smoking Tobacco: Never Assessed Sex and Gender Information Value Date Recorded Sex Assigned at Not on file Gender Identity Not on file Sexual Orientation Not on file Plan of Treatment Health Maintenance Due Date Last Done Comments DTaP,Tdap,and Td Vaccines (1 - Tdap) 1975 Zoster Vaccines (1 of 2) 2006 Pneumococcal Vaccine: 65+ Ye ars (1 of 1 - PCV) 2021 COVID-19 Vaccine (1 - 2023-2 5 season) 2024 Influenza Vaccine (#1) 2024 Abdominal Aortic Aneurysm (A AA) Screen 07/07/2024 Cholesterol Screening (Lipid Panel) 07/07/2024 Colorectal Cancer Screening: Colonoscopy 07/07/2024 Depression Screening 07/07/2024 Falls Risk Assessment 07/07/2024 Hepatitis C Screening 07/07/2024 Social Influencers of Health Screening 07/07/2024 RSV Immunization Patients 60 + Years Old (1 - 1-dose 75+ series) 2031 HIB Vaccines Aged Out No longer eligi ble based on patient's age to complete this topic HPV Vaccines Aged Out No longer eligi ble based on patient's age to complete this topic Hepatitis A Vaccines Aged Out No long er eligible based on patient's age to complete this topic Hepatitis B Vaccines Aged Out No long er eligible based on patient's age to complete this topic IPV Vaccines Aged Out No longer eligi ble based on patient's age to complete this topic MMR Vaccines Aged Out No longer eligi ble based on patient's age to complete this topic Meningococcal ACWY Vaccine Aged Out N o longer eligible based on patient's age to complete this topic RSV Immunization Patients Un ever 20 months Aged Out No longer eligible b ased on patient's age to complete this topic Varicella Vaccines Aged Out No longer eligible based on patient's age to complete this topic Care Teams Osteopathic Resident Relationship Specialty Start Date End Date Nemo Berry MD [address] [place] [address] PCP - General 08/03/23
--- OUTSIDE RECORDS SUMMARY | 2024-07-30 09:02 | XMS_ITS | Patient Health Record ---
Author Organization [facility] Address [address] [place], [place] [address] Care Team Providers Care Real Estate Recruiter Name Role Phone No, Pcp Primary Care Provider Danish Mcadams Eugene Unavailable [phone] Dennis Deedee Unavailable [phone] Reason For Referral No Information Problems Problem Type SNOMED Code ICD Code Onset Dates Problem Status W/U Status Risk Notes Problem 795527223 Anemia, unspecified type (D64.9) Active confirmed Problem Hepatic encephalopathy (34712471) Hepatic encephalopathy (K76.82) Active confirmed Encounters Encounter Location Date Provider Diagnosis [facility] [address] [place] [address] 07/04/2024 Deedee Collins Anemia, unspecified type D64.9 and Hepatic encephalopathy K76.82 Assessments Encounter Date Diagnosis (ICD Code) Assessment Notes Treatment Notes Treatment Clinical Notes Section Notes 07/04/2024 Anemia, unspecified type (ICD-10 - D64.9) 07/04/2024 Hepatic encephalopathy (ICD-10 - K76.82) Plan Of Treatment No Information Insurance Providers Payer Name Payer Address Payer Phone Subscriber Number Group Number Insured Name Patient Relationship to Insured Coverage Start Date Coverage End Date [facility] [address] [facility] [address] [place] [address] [id number] MERLIN REZA Self - patient is the insured
--- OUTSIDE RECORDS SUMMARY | 2024-07-30 09:02 | XMS_ITS ---
Author Organization [facility] Address [address] [place] [address] Care Team Providers Care Prosthetist Name Role Phone Michelle Fatima Primary Care Provider Unavailab Jose Antonio Koehler Unavailable [phone] Alyse Wells Unavailable Unavailable REASON FOR VISIT Patient presents today for cirrhosis Encounters Encounter Location Date Provider Diagnosis [facility] [address] [place] [address] 07/16/2023 Jose Antonio Crawley PLAN OF TREATMENT No Information
--- OUTSIDE RECORDS SUMMARY | 2024-07-30 09:02 | XMS_ITS | Encounter Summary ---
Author Organization [employer] Address [address] [place] [address] Care Team Providers Care Healthcare Technician Name Role Phone Maria Dolores Mcduffie MD Primary Care Provide r Reason for Visit * Reason Onset Date Comments No Show 07/18/2024 Encounter Details Date Type Department Care Team ([facility] st Contact Info) Description 07/18/2024 Telephone [facility] MEDICINE [address] [place], [place] [phone] Maria Dolores Mcduffie MD [address] [place], [place] [phone] No Show Social History Tobacco Use Types Packs/Day Years [...] with others, in a hotel, in a skilled nursing, living outside on the street, on a [...] PM EDT documented as of this encounter Miscellaneous Notes * Telephone Encounter - Dayana Carmona RN - 07/18/2024 11:30 AM EST Tc to pt via [facility] id: [id number] to contact pt in regards to no show HDF appt today. [facility] answered, reports pt was discharged from their services in January 2024. There is no other contact information in the chart. Letter sent to contact on file, no other follow up and pt to follow up with PCP dianen. * Telephone Encounter - Mairna Gonzalez - 07/18/2024 10:58 AM EST Pt no showed to hospital follow up apt scheduled with pcp larissa @10:15am. documented in this encounter Plan of Treatment Not on file documented as of this encounter Visit Diagnoses Not on filedocumented in this encounter Additional Health Concerns Assessment Noted Time PHQ-9 Depression Total Score: 0 12/02/19 24 9:50 AM EDT documented as of this encounter Care Teams Healthcare Technician Relationship Specialty Start Date End Date Maria Dolores Mcduffie MD [address] [place] [address] PCP - General Internal Medicine 12/03/23 documented as of this encounter
--- OUTSIDE RECORDS SUMMARY | 2024-07-30 09:02 | XMS_ITS ---
Author Organization [facility] Address [address] [place], [place] [address] Care Team Providers Care Supervisor Residential Name Role Phone No, Pcp Primary Care Provider Eugene Blackman Unavailable [phone] Deedee Collins Unavailable [phone] Problems Problem Type SNOMED Code ICD Code Onset Dates Problem Status W/U Status Risk Notes Problem Hepatic encephalopathy (86227023) Hepatic encephalopathy (K76.82) Active confirmed Problem 702044339 Anemia, unspecified type (D64.9) Active confirmed Encounters Encounter Location Date Provider Diagnosis [facility] [address] [place] [address] 07/04/2024 Deedee Collins Anemia, unspecified type D64.9 and Hepatic encephalopathy K76.82 Assessments Encounter Date Diagnosis (ICD Code) Assessment Notes Treatment Notes Treatment Clinical Notes Section Notes 07/04/2024 Anemia, unspecified type (ICD-10 - D64.9) 07/04/2024 Hepatic encephalopathy (ICD-10 - K76.82) Plan Of Treatment No Information Progress Notes * ANTONIOSHYLALILIANEDOB: [birth year] (69 yo M)Acc No.[id number]:07/04/2024 Patient:?MERLIN ALVAREZ Appointment Provider:?Deedee gardner PA-C :[id number]???Age:69 Y???Sex:Male Trevor e:07/04/2024 Address:[address] [place], [place] [phone] Pcp:Pcp No Subjective: * Chief Complaints: * ??? * Medical History:? Objective: * Vitals:? Assessment: * Assessment: 1.?Anemia, unspecified type - D64.9 (Primary)???2.?Hepatic encephalopathy - K76.82??? Plan: * Treatment: * Procedure Codes:?05360 Inpat ient consultation for a new or established patient, which requires these 3 wiggins components: A comprehensive history; A comprehensive examination; and Medical decision making of moderate complexity. * * Sign off status: Completed true * Appointment Provider:?Nya Collins PA-C Date:?07/04/2024 Generated for Printing/Faxing/eTransmitting on:?07/30/2024 09:02 AM EST
--- OUTSIDE RECORDS SUMMARY | 2024-07-30 09:02 | XMS_ITS | Clinical Summary ---
Author Organization [employer] Address [address] [place] [address] Care Team Providers Care Customer Complaint Service Supervisor Name Role Phone Maria Dolores Mcduffie MD Primary Care Provide r Allergies No known active allergies Medications methadone (Dolophine) 10 MG tablet Take 4 tablets by mouth Once per day. Active acetaminophen (Tylenol) 325 MG tabletIndications:C hronic pain of left knee Take 2 tablets (650 mg) by mouth every 6 (six) hours if needed for mild pain or moderate pain. 30 tablet 2 4 Active docusate sodium (Colace) 100 MG capsuleIndications: Alcoholic cirrhosis, unspecified whether ascites present (CMS/HCC),Metabolic encephalopathy Take 1 capsule (100 mg) by mouth 2 times daily. 60 capsule 4 Active folic acid (Folvite) 1 MG tabletIndications:A lcoholic cirrhosis, unspecified whether ascites present (CMS/HCC),Metabolic encephalopathy Take 1 tablet (1 mg) by mouth Once per day. 30 tablet 2 4 Active furosemide (Lasix) 40 MG tabletIndications:A lcoholic cirrhosis, unspecified whether ascites present (CMS/HCC),Metabolic encephalopathy Take 1 tablet (40 mg) by mouth Once per day. 30 tablet 3 4 Active lactulose (Chronulac) 10 GM/15ML solutionIndications :Alcoholic cirrhosis, unspecified whether ascites present (CMS/HCC),Metabolic encephalopathy Take 45 mL (30 g) by mouth 3 times daily. 946 mL 3 4 Active pantoprazole (ProtoNix) 40 MG EC tabletIndications:A lcoholic cirrhosis, unspecified whether ascites present (CMS/HCC),Metabolic encephalopathy Take 1 tablet (40 mg) by mouth 2 times daily. 30 tablet 3 4 Active spironolactone (Aldactone) 100 MG tabletIndications:A lcoholic cirrhosis, unspecified whether ascites present (CMS/HCC),Metabolic encephalopathy Take 1 tablet (100 mg) by mouth 2 times daily. 60 tablet 3 4 Active thiamine (Vitamin B-1) 100 MG tabletIndications:A lcoholic cirrhosis, unspecified whether ascites present (CMS/HCC),Metabolic encephalopathy Take 1 tablet (100 mg) by mouth Once per day. 30 tablet 3 4 Active Xifaxan 550 MG tabletIndications:A lcoholic cirrhosis, unspecified whether ascites present (CMS/HCC),Metabolic encephalopathy Take 1 tablet (550 mg) by mouth 2 times daily. 60 tablet 1 4 Active hydrOXYzine HCl (Atarax) 50 MG tablet Take 1 tablet by mouth if needed each day. 4 Active Active Problems Problem Noted Date Diagnosed Date Liver cirrhosis 12/02/2023 Assessment & Plan (12/02/2023 1:18 PM EDT): C/w current regimen (spirinolactone, lasix) I will refer patient to GI I advise no NSAIDs Patient last time he used drugs or drink alcohol was 1 year ago (per patient) Metabolic encephalopathy 12/02/2023 Assessment & Plan (12/02/2023 1:16 PM EDT): Currently resolved, c/w lactulose as prescribed, I will prescribe today rifaximin and submit the PA Polysubstance abuse 12/02/2023 Pancytopenia 12/02/2023 Chronic pain of left knee 12/02/2023 Assessment & Plan (12/02/2023 1:19 PM EDT): Acetaminophen PRN I ordered XRAY I referred patient to orthopedics Unstable gait 12/02/2023 Assessment & Plan (12/02/2023 1:19 PM EDT): Roller walker will be prescribed Dry skin dermatitis 12/02/2023 Venous stasis dermatitis 12/02/2023 Heart murmur, systolic 12/02/2023 Assessment & Plan (12/02/2023 1:17 PM EDT): During physical exam it was very noticeable a systolic hear murmur grade III-IV Echocardiogram ordered Encounters Date Type Department Care Team Description 07/18/2024 Telephone [facility] [address] [place] [phone] Maria Dolores Mcduffie MD No Show from Last 3 Months Immunizations Name Administration Dates Next Due Influenza Injectable Quadriv alant Preservative Free IIV4 MDCK 05/20/2021 Influenza injectable quadrivalent preservative f ree 08/12/2018,03/03/2017 Moderna Covid-19 Vaccine 12+ 12/04/2020,11/07/19 21 Pneumococcal Conjugate PCV 13 10/16/2015 Pneumococcal Polysaccharide PPSV23 03/29/2019, Tdap 06/04/2019,01/09/2016 Zoster, live 01/09/2016 Social History Tobacco Use Types Packs/Day Years [...] with others, in a hotel, in a correction, living outside on the street, on a [...] Don't know 10/27/2023 3: 53 PM EDT Last Filed Vital Signs Vital Sign Reading Time Taken Comments Blood Pressure 112/82 12/02/2023 9:49 AM EDT Pulse 79 12/02/2023 9:49 AM EDT Temperature - - Respiratory Rate 25 12/02/2023 9:49 AM EDT Oxygen Saturation 96% 12/02/2023 9:49 AM EDT Inhaled Oxygen Concentration - - Weight 98.1 kg (216 lb 3.2 oz) 12/02/2023 9:49 A M EDT Height - - Body Mass Index - - Plan of Treatment Health Maintenance Due Date Last Done Comments CT Colonography 1956 Colonoscopy 1956 Colorectal Cancer Screening 1956 FIT DNA/Cologuard 1956 FIT 1956 FOBT 1956 Lipid Panel 1956 Sigmoidoscopy 1956 Tobacco Screening 1968 Hepatitis A Vaccines (1 of 2 - Risk 2-dose series) 1975 Zoster Vaccines (2 of 3) 03/05/2016 01/09/2016 Hepatitis B Vaccines (1 of 3 - Risk 3-dose series) 2016 RSV Patients and Patients Aged 60 years or older (1 - Risk 60-74 years 1-dose series) 2016 COVID-19 Vaccine (3 - 2023-2 5 season) 2024 12/04/2020, 11/06/2020 Influenza Vaccine (#1) 2024 , 08/12/2018, 03/03/2017 Pneumococcal Vaccine: 65+ Years (3 of 3 - PPSV23 or PCV20) 03/29/2024 03/29/2019, 08/23/2017, 10/16/2015 Alcohol/Substance Use Screening 12/01/2024 12/02/2023 Depression Screening 12/01/2024 12/02/2023, 12/02/2023 SDOH Screening 12/01/2024 12/02/2023 DTaP/Tdap/Td Vaccines (3 - T d or Tdap) 06/04/2029 06/04/2019, 01/09/2016 HIB Vaccines Aged Out No longer eligi ble based on patient's age to complete this topic HPV Vaccines Aged Out No longer eligi ble based on patient's age to complete this topic IPV Vaccines Aged Out No longer eligi ble based on patient's age to complete this topic Meningococcal Vaccine Aged Out No kianna dee eligible based on patient's age to complete this topic RSV under 20 months Aged Out No longe r eligible based on patient's age to complete this topic Rotavirus Vaccines Aged Out No longer eligible based on patient's age to complete this topic Insurance [facility] Care Teams Customer Complaint Service Supervisor Relationship Specialty Start Date End Date Maria Dolores Mcduffie MD [address] [place] [id number] PCP - General Internal Medicine 12/03/23
--- OUTSIDE RECORDS SUMMARY | 2024-07-30 09:02 | XMS_ITS | Encounter Summary ---
Author Organization [employer] Address [address] [place] [address] Care Team Providers Care Meteorologist In Charge Name Role Phone Maria Dolores Mcduffie MD Primary Care Provide r Reason for Visit * Reason Onset Date Comments No Show 04/18/2024 Encounter Details Date Type Department Care Team ([facility] st Contact Info) Description 04/18/2024 Telephone [facility] [address], [place] [phone] Maria Dolores Mcduffie MD [address] [place], [place] [phone] No Show Social History Tobacco Use Types [...] with others, in a hotel, in a senior living, living outside on the street, on a [...] encounter Miscellaneous Notes * Telephone Encounter - Akua Bernal RN - 07/18/2024 11:42 AM EST Late entry from 07/17/24: Patient presented to the red team FD requesting r/s HDF appointment. RN r/s for 07/18/24 at 10:15am,patient agreed to appointment date and time. Patient to f/u PRN. * Telephone Encounter - Nika Zavala RN - 04/18/2024 2:53 PM EDT TC placed to [phone] in regards to below message. [facility] reports that pt was discharged from there in January. Lacy reports that pt is currently in a psych facility with corrections since January for a violation. RN does not know any more information and this number is the only number in chart. * Telephone Encounter - Sophie Garzon - 04/18/2024 1:38 PM EDT Pt no showed to appt on 04/18/24 documented in this encounter Plan of Treatment Not on file documented as of this encounter Visit Diagnoses Not on filedocumented in this encounter Additional Health Concerns Assessment Noted Time PHQ-9 Depression Total Score: 0 12/02/19 9:50 AM EDT documented as of this encounter Care Teams Meteorologist In Charge Relationship Specialty Start Date End Date Maria Dolores Mcduffie MD [address] [place] [address] PCP - General Internal Medicine 12/03/23 documented as of this encounter
[2024-07-30 09:04] LABS: INTERNATIONAL NORM RATIO 1.5 (0.9-1.1); Prothrombin Time 17.5 SEC (10.9-12.4)
[2024-07-30 09:07] LABS: Partial Thromboplastin Time 25.1 SEC (26.0-36.8)
[2024-07-30 09:10] LABS: Platelet Count 98 X10*3/uL (160-400)
[2024-07-30 09:15] LABS: Alanine Aminotransferase 8 U/L (0-40); Albumin Level 2.5 g/dL (3.5-5.0); Alkaline Phosphatase 87 U/L (39-117); Anion Gap 11 (12-20); Aspartate Amino Transferase 48 U/L (5-37); Bilirubin Total 1.5 mg/dL (0.0-1.0); Blood Urea Nitrogen 7 mg/dL (9-16); Calcium 7.9 mg/dL (8.4-10.2); Carbon Dioxide 22 mmol/L (22-29); Chloride 108 mmol/L (96-108); Creatinine Clr Calc Pharmacy 117.4; Estimated Glomerular Filt Rate > 60; Glucose Random 134 mg/dL (60-115); Lipase 35 U/L (8-78); Potassium 4.9 mmol/L (3.3-5.1); Sodium 136 mmol/L (135-145); Total Protein 6.5 g/dL (6.5-8.0)
[2024-07-30 09:16] LABS: B Type Natriuretic Peptide 56 pg/mL (<100)
[2024-07-30 09:18] LABS: Troponin-I High Sensitivity 2.7 ng/L (<3.5-35.0)
--- NOTE | 2024-07-30 09:50 | PC.NURSE ---
patient presents to ED from home, states he can not ambulate, was able to take a few steps from ems stretcher to ED stretcher. patient is awake, alert and oriented. patient bilat lower legs are 3+ pitting edema, purple and dry. patient states he has not been taking is lasix because it makes him pee a lot. patient has bilat pedal pulse, marked with doppler. patient speach difficult to understand, states he drank 2 beers [employer] and uses heroin (snorts). IV access obtained in patient right upper arm #22, labs and cultures obtained from patient and sent. ultrasound currently at bedside. patient abdomen is round, noted to have ascites on ultrasound done by MD at bedside.
[2024-07-30 09:58] LABS: Lactic Acid 1.5 mmol/L (0.5-2.0)
[2024-07-30] MEDS: Furosemide 40 MG/4 ML VIAL IVPUSH (14:03)
--- NOTE | 2024-07-30 14:42 | PC.NURSE ---
patient had large bowel movement, cleaned up, new linens and pads. given gingerale.
--- NOTE | 2024-07-30 15:16 | PM.IMHP ---
History of Present Illness Date of Service: 07/30/24 Chief Complaint: Painful leg swelling 68yo M with 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, ongoing polysubstance abuse, presented with severe leg edema causing difficulty ambulating, likely due to decompensated cirrhosis and chronic venous stasis, patient treated with IV Lasix and spironolactone with good affect in past however extremely noncompliant with therapies. States he has not taken his meds in ?long time?. He also states that he still drinks 1-2 beers a day and snorts heroin on a regular basis. He does not take methadone from a clinic however states he takes it periodically. At this time he will be admitted with decompensated cirrhosis and bilateral leg edema Review of Systems Review of Systems: Denies chest pain Denies shortness of breath Denies nausea vomiting diarrhea Denies fever chills [facility] Medical History (Updated 07/30/24 @ 15:35 by Hao Castillo DO) Cirrhosis Polysubstance abuse Splenomegaly Pancytopenia Portal vein thrombosis HTN (hypertension) Surgical History S/P TIPS (transjugular intrahepatic portosystemic shunt) Social History Household Members: None Housing: Homeless Do you presently have visiting nurse or other home services: No Unable to assess alcohol history related to: Unable to respond Alcohol intake: current Alcohol intake frequency: 3 or more drinks per day Alcohol type: beer Comment: 1:1 sitter Patient Tobacco Use Status: Current everyday Tobacco user Tobacco use type: Cigarette Cigarettes Per Day: 2 Smoked in Last 30 Days: No e-Cigarette/Vaping Use: Never Used Second Hand Smoke Exposure: No Use of substances other than those prescribed or required for medical reasons: Yes Substance Use Type: Heroin Substance Use Frequency: Daily Substance Use Frequency Other:: 4 bags Last Used Substance: Just Prior to Admission Advance Directives: Yes Advance Directives on File: Yes Advance Directives Date on File: 08/20/23 Do you have a plan to hurt others: No Plan service: No Current occupational status: retired Current occupation: rt handed Meds Allergies Allergy/AdvReac Type Severity Reaction Status Date / Time No Known Allergies Allergy Verified 07/30/24 08:26 [No Known Allergies*] Home Medications ?Medication ?Instructions ?Recorded ?Confirmed ?Last Taken ?Type acetaminophen 325 mg tablet 650 mg PO Q6H PRN Pain 10/28/23 05/10/24 1 Week Ago History ~05/03/24 pantoprazole 40 mg tablet,delayed 40 mg PO BID@0630,1630 05/10/24 05/10/24 1 Week Ago History release (Protonix) ~05/03/24 Physical Exam Vital Signs and Narrative: Vital Signs: Last Vital Signs Temp 98.5 F 07/30/24 12:48 Pulse 117 H 07/30/24 15:07 Resp 18 07/30/24 15:07 BP 139/78 07/30/24 12:48 Pulse Ox 99 07/30/24 15:07 O2 Del Method Room Air 07/30/24 15:07 BMI result Body Mass Index 42.0 Const: Other: Awake alert uncomfortable appearing Resp: Other: Clear to auscultation bilaterally diminished at bases Cardio: Other: Tachycardic; no S4; positive S1-S2; no S3 murmurs rubs or gallops GI: Other: Distended and firm with palpable fluid wave. Bowel sounds quiet Extrem: Other: See ER admitting pictures Results Labs 07/30/24 08:49 07/30/24 08:49 Labs: Laboratory Results - last 24 hr 07/30/24 07/30/24 08:49 09:24 MCV 87.6 MCH 27.1 MCHC 30.9 L RDW 18.2 H Plt Count 98 L D MPV 10.8 Immature Gran % (Auto) 0.7 H Neut % (Auto) 72.9 Lymph % (Auto) 16.1 L Upton % (Auto) 6.3 Eos % (Auto) 3.0 Baso % (Auto) 1.0 Lymph # (Auto) 0.5 L Upton # (Auto) 0.2 Eos # (Auto) 0.1 Baso # (Auto) 0.0 Abs Immat Gran (auto) 0.02 Absolute Neuts (auto) 2.2 Absolute Nucleated RBC 0.000 Nucleated RBC % (auto) 0.0 PT 17.5 H INR 1.5 H APTT 25.1 L Anion Gap 11 L Estim Creat Clear Calc 117.4 Estimated GFR > 60 Random Glucose 134 H Lactic Acid 1.5 Calcium 7.9 L D Total Bilirubin 1.5 H AST 48 H ALT 8 Alkaline Phosphatase 87 Troponin I High Sens 2.7 B-Natriuretic Peptide 56 Total Protein 6.5 Albumin 2.5 L Lipase 35 Assessment and Plan (1) Anasarca: Status: Acute (2) Cirrhosis: Qualifiers: Ascites presence: with ascites Hepatic cirrhosis type: alcoholic cirrhosis Qualified Code(s): K70.31 - Alcoholic cirrhosis of liver with ascites Status: Acute (3) HTN (hypertension): Qualifiers: Hypertension type: primary hypertension Qualified Code(s): I10 - Essential (primary) hypertension Status: Acute Plan 68-year-old male with likely decompensated alcoholic cirrhosis/history of variceal bleeding status post TIPSS procedure and ongoing polysubstance abuse presents with worsening lower extremity edema and pain. He states he has not taken his meds in some time and at this point could not walk without extreme pain so he presented to the emergency room 1. Decompensated alcoholic/HCV cirrhosis -we will restart all outpatient therapies -examines with ascites; adamantly declines paracentesis (we will give IV albumin overnight) -given IV Lasix in ER with decent response; continue same. -abdominal ultrasound in a.m. -GI consult in a.m. 2. Portal vein thrombosis -has been noncompliant with anticoagulation therapy for several months -check abdominal ultrasound with Dopplers in a.m. -discuss anticoagulation with GI 3. Hypertension -acceptable control off therapies -we will start with Aldactone and Lasix -follow clinically -follow renals/divalents 4. Polysubstance abuse -nasal heroin yesterday (3 bags) -start methadone 40 mg daily as previous admission -addiction Medicine consult in a.m. Full code Lovenox Will require a minimum of 2 midnights going forward of inpatient stay to treat decompensated alcoholic cirrhosis with IV Lasix and possible paracentesis this can not be achieved on lesser acute setting Quality Stroke Does the patient have a stroke diagnosis?: No VTE Prior VTE?: Yes VTE Risk Level:: Medical - moderate - high VTE Device Contraindication: Treatment Not Indicated VTE Drug Contraindication: N/A - Med Ordered
[2024-07-30] MEDS: methADONE HCl 20 MG/2 ML ORAL.CONC 40 MG PO (16:07)
--- NOTE | 2024-07-30 18:05 | PHA.MEDREC ---
Pharmacy Consult ? Medication Reconciliation Pharmacy has completed the medication reconciliation. Patient's last fills in claim history were from May x 30 days, he reported to record label internship Davdi that he hasn't taken anything in weeks. Called his contact Chantel ([phone]) who reported she has not seen him in about 3 weeks, and said he was at [facility] within the last month but left AMA. Leaving as no home meds.
--- NOTE | 2024-07-30 19:00 | PC.NURSE ---
assumed care of patient at this time patient resting comfortably in stretcher no complaints at this time
[2024-07-30] MEDS: Gabapentin 300 MG CAPSULE PO (22:14)
--- NOTE | 2024-07-30 23:51 | PC.NURSE ---
Messaged provider about patients heart rate trends show it has been 120s most of the day. While sleeping patients heart rate still 120s. no new orders at this time
[2024-07-31] VITALS (10 sets, daily range): BP systolic 107–130; BP diastolic 70–98; PULSE 84–132; RESP 15–18; TEMP 36.3–37.1; O2SAT 93–99; BMI 41.4
[2024-07-31] MEDS: 0.9 % Sodium Chloride Flush 3 ML SYRINGE IVFLUSH ×4 (00:35→19:41)
[2024-07-31] MEDS: Albumin Human 25 % 100 ML IV (04:02)
[2024-07-31 06:38] LABS: MANUAL DIFF FLAG NO
[2024-07-31 06:54] LABS: Basophils Absolute Auto 0.1 X10*3/uL (0.0-0.2); Basophils Percent Auto 1.9 % (0-2); Eosinophils Absolute Auto 0.1 X10*3/uL (0.0-0.4); Eosinophils Percent Auto 3.1 % (0-4); Hematocrit 26.2 % (42.0-52.0); Hemoglobin 7.8 g/dl (14.0-18.0); Imm Gran Abs Auto 0.02 X10*3/uL (0.00-0.03); Imm Gran Pct Auto 0.6 % (0.0-0.4); Lymphocytes Absolute Auto 0.6 X10*3/uL (1.2-4.9); Lymphocytes Percent Auto 19.1 % (20-40); Mean Corpuscular HGB Conc 29.8 g/dl (31.0-36.0); Mean Corpuscular Hemoglobin 26.8 pg (27.0-33.0); Mean Platelet Volume 10.5 fL (9.4-12.4); Monocytes Absolute Auto 0.3 X10*3/uL (0.1-1.2); Neutrophils Absolute Auto 2.1 x10*3/uL (2.0-8.3); Neutrophils Percent Auto 65.3 % (45-73); Red Blood Count 2.91 X10*6/uL (4.60-5.80); Red Cell Distribution Width 18.5 % (11.0-16.0); White Blood Count 3.2 X10*3/uL (4.8-10.8)
[2024-07-31 07:03] LABS: Alanine Aminotransferase 11 U/L (0-40); Albumin Level 2.9 g/dL (3.5-5.0); Alkaline Phosphatase 86 U/L (39-117); Anion Gap 9 (12-20); Aspartate Amino Transferase 31 U/L (5-37); Bilirubin Total 1.7 mg/dL (0.0-1.0); Blood Urea Nitrogen 9 mg/dL (9-16); Calcium 8.2 mg/dL (8.4-10.2); Carbon Dioxide 27 mmol/L (22-29); Chloride 106 mmol/L (96-108); Creatinine Clr Calc Pharmacy 109.4; Estimated Glomerular Filt Rate > 60; Glucose Random 104 mg/dL (60-115); Potassium 3.9 mmol/L (3.3-5.1); Sodium 138 mmol/L (135-145); Total Protein 6.5 g/dL (6.5-8.0)
[2024-07-31 07:12] LABS: Platelet Count 91 X10*3/uL (160-400)
[2024-07-31] MEDS: Gabapentin 300 MG CAPSULE PO ×3 (08:43→19:40)
--- NOTE | 2024-07-31 09:11 | PM.GICN ---
History of Present Illness Data of Consult Service Date: 07/31/24 Requesting physician: Mindi Watson Primary Care Provider: [facility] HPI Reason for consult: Decompensated cirrhosis 69 y.o M with PMH of etOH use disorder and chronic hepatitis-C that have led to decompensated cirrhosis with history of variceal bleeding, history of tips, BRTO 2016, ruptured cholecystitis status post C tube 2019, recurrent varices and splenic vein thrombosis with revision of tips 07/2023 who is here for bilateral leg pain. Gastroenterology has been consulted for comanagement of decompensated cirrhosis. History was obtained from the patient, who reports he had not been taking any of his medications for almost a week including his diuretics and Coumadin for portal vein thrombosis. Over the last 3 days noticed significant increase in his leg swelling, with blistering and pain, as well as abdominal distention. Reports good appetite, no fevers, chills, no abdominal pain. No nausea vomiting. Also does not report any melena. Continues to drink, last drink was the day of admission. Follows at [facility], per records, no showed his last appointment in 2023. Labs reviewed - slowly downtrending H/H. INR 1.5 consistent with underlying cirrhosis and nonadherence to warfarin. Liver function and kidney function appears intact at this point. Dry weight is close to 200 lb, and patient is presenting with 245 lb this admission. Review of Systems Review of Systems: Yes all other systems are reviewed and are negative [facility] Past Medical History Medical History (Updated 07/30/24 @ 15:35 by Hao Castillo DO) Cirrhosis Polysubstance abuse Splenomegaly Pancytopenia Portal vein thrombosis HTN (hypertension) Surgical History Surgical History (Updated 07/31/24 @ 11:10 by Brenda Valadez MD) S/P TIPS (transjugular intrahepatic portosystemic shunt) Social History Social History Household Members: None Housing: Homeless Do you presently have visiting nurse or other home services: No Unable to assess alcohol history related to: Unable to respond Alcohol intake: current Alcohol intake frequency: 3 or more drinks per day Alcohol type: beer Comment: 1:1 sitter Patient Tobacco Use Status: Current everyday Tobacco user Tobacco use type: Cigarette Cigarettes Per Day: 2 Smoked in Last 30 Days: No e-Cigarette/Vaping Use: Never Used Second Hand Smoke Exposure: No Use of substances other than those prescribed or required for medical reasons: Yes Substance Use Type: Heroin Substance Use Frequency: Daily Substance Use Frequency Other:: 4 bags Last Used Substance: Just Prior to Admission Advance Directives: Yes Advance Directives on File: Yes Advance Directives Date on File: 08/20/23 Do you have a plan to hurt others: No Plan Nutrition Risks: No Nutritional Risk service: No Current occupational status: retired Current occupation: rt handed Meds Allergies Allergy/AdvReac Type Severity Reaction Status Date / Time No Known Allergies Allergy Verified 07/30/24 08:26 [No Known Allergies*] Active Medications: Current Medications Acetaminophen (Acetaminophen 325 Mg Tablet) 650 mg PO Q6H PRN PRN Reason: Pain, Mild 1-3,fever,headache Calcium Carbonate (Calcium Carbonate 750 Mg Tab.Chew) 750 mg PO Q4H PRN PRN Reason: Heartburn Enoxaparin Sodium (Enoxaparin Sodium 40 Mg/0.4 Ml Syringe) 40 mg SUBCUT Q24H [facility] Last Admin: 07/30/24 17:18 Dose: Not Given Furosemide (Furosemide 20 Mg/2 Ml Vial) 20 mg IVPUSH BID@0900,1800 [facility]; Protocol Gabapentin (Gabapentin 300 Mg Capsule) 300 mg PO TID [facility] Last Admin: 07/31/24 08:43 Dose: 300 mg Magnesium Hydroxide (Milk Of Magnesia 30 Ml Oral.Susp) 30 ml PO DAILY PRN PRN Reason: Constipation Melatonin (Melatonin 3 Mg Tablet) 6 mg PO BEDTIME PRN PRN Reason: Insomnia Ondansetron HCl (Ondansetron Hcl 4 Mg/2 Ml Vial) 4 mg IVPUSH Q8H PRN PRN Reason: Nausea and Vomiting Sodium Chloride (0.9 % Sodium Chloride Flush 3 Ml Syringe) 3 ml IVFLUSH QSHIFT [facility] Last Admin: 07/31/24 08:42 Dose: 3 ml Spironolactone (Spironolactone 25 Mg Tablet) 50 mg PO BID@0900,1800 [facility]; Protocol Home Medications ?Medication ?Instructions ?Recorded ?Confirmed ?Last Taken ?Type No Known Home Meds 07/30/24 07/30/24 Unknown History Physical Exam Vital Signs: Vital Signs: Last Vital Signs Temp 98.1 F 07/31/24 08:41 Pulse 122 H 07/31/24 08:41 Resp 18 07/31/24 08:41 BP 112/70 07/31/24 08:41 Pulse Ox 97 07/31/24 08:41 O2 Del Method Room Air 07/31/24 08:41 BMI result Body Mass Index 42.0 No apparent distress Nonicteric Abdomen distended, nontender Alert and oriented x3, no asterixis DREAD with ++++ edema with blistering and chronic venous stasis changes Results Labs 07/31/24 05:52 07/31/24 05:52 Labs: Short CBC 07/30/24 07/31/24 Range/Units 08:49 05:52 WBC 3.0 L 3.2 L (4.8-10.8) X10*3/uL Hgb 8.5 L D 7.8 L (14.0-18.0) g/dl Hct 27.5 L 26.2 L (42.0-52.0) % Plt Count 98 L D 91 L (160-400) X10*3/uL BMP 07/30/24 07/31/24 08:49 05:52 Sodium 136 138 Potassium 4.9 3.9 D Chloride 108 106 Carbon Dioxide 22 27 BUN 7 L 9 Creatinine 0.68 0.73 Calcium 7.9 L D 8.2 L Liver Function 07/30/24 07/31/24 Range/Units 08:49 05:52 Total Bilirubin 1.5 H 1.7 H (0.0-1.0) mg/dL AST 48 H 31 (5-37) U/L ALT 8 11 (0-40) U/L Alkaline Phosphatase 87 86 (39-117) U/L Albumin 2.5 L 2.9 L (3.5-5.0) g/dL Assessment and Plan (1) Cirrhosis: Qualifiers: Hepatic cirrhosis type: alcoholic cirrhosis Ascites presence: with ascites Qualified Code(s): K70.31 - Alcoholic cirrhosis of liver with ascites Status: Acute (2) Anasarca: Status: Acute (3) Pancytopenia: Status: Acute (4) Edema of both lower legs: Status: Acute (5) Alcohol use disorder: Status: Acute (6) Portal vein thrombosis: Status: Acute (7) Polysubstance abuse: Status: Acute (8) S/P TIPS (transjugular intrahepatic portosystemic shunt): Status: Acute Plan Decompensated cirrhosis secondary to HCV + metALD --MELD Na 14, Child Class B p/w diffuse anasarca, lower extremity edema and large volume ascites in the setting of medication nonadherence and ongoing alcohol use. Dry weight is 200# and current weight is 245#. Also has worsening anemia without any overt bleeding reported by the patient. Recommendations: -Start furosemide 40 mg and spironolactone 100 mg once daily -daily MELD labs -ultrasound abdomen with duplex to assess burden of thrombosis and to r/o TIPS restenosis -if has persistent portal and splenic vein thrombosis, will need to reinstate Coumadin, however will need an upper endoscopy to rule out large varices specially given declining anemia -large volume ascites will be prohibitive for this EGD if required, but patient remains very resistant to paracentesis at this time. -check iron, B12 and folate -[facility] protocol - last drink reported yest by the patient. Thank you for allowing me to participate in his care. Please do not hesitate to reach out for any questions or concerns. Procedures Date of Service Date of Service: 07/31/24
[2024-07-31] MEDS: Spironolactone 25 MG TABLET 50 MG PO ×2 (09:35→18:50)
[2024-07-31] MEDS: Furosemide 20 MG/2 ML VIAL IVPUSH (09:35)
[2024-07-31 10:03] LABS: Magnesium 1.7 mg/dL (1.6-2.6)
--- NOTE | 2024-07-31 10:24 | MHC.RECOVRN ---
Met with pt in ED19 after receiving Addiction Medicine consult. Pt currently medically admitted with anasarca, cirrhosis, and HTN. Pt laying in bed, awake, alert, easily engages in conversation. Pt reports heroin/fentanyl use, 3-4 bags daily, IN, as well as two 12 ounce beers daily. Pt received 40 mg methadone in the ED yesterday at 1607. Pt currently reporting withdrawal symptoms including rhinorrhea, tearing, restless, yawning also noted throughout conversation. Pt is requesting methadone and to be connected to [facility] upon discharge. Pt denies other questions or concerns at this time. Maria Dolores Murillo APRN, aware.
--- NOTE | 2024-07-31 11:43 | MHC.CM.PN ---
Addendum entered by Amada Mcfarlane 07/31/24 12:28: PCP: EL GARCIA Original Note: PT STATES THAT HE IS NOW STAYING WITH A FRIEND AND HOUSING IS STABLE THE ADDRESS IS [address] [place] [address] PT IS ACTIVE WITH [facility] FOR METHADONE MAINTENANCE TREATMENT HE USES A CANE BUT STATES HE NEEDS A WALKER HCP ON FILE AND VERIFIED PCP AT [facility] IMM DELIVERED DCP: HOME WITH NO NEW SERVICES VIA [employer]
--- NOTE | 2024-07-31 12:18 | HO.PM.IMPN ---
Subjective Subjective Date of Service: 07/31/24 Interval History: admits noncompliance with medications adamantly refuses paracentesis c/o leg swelling No hematemesis, hematochezia, or melena. Review of Systems Review of Systems: Yes all other systems are reviewed and are negative Physical Exam Vital Signs: Vital Signs: Last Vital Signs Temp 98.2 F 07/31/24 12:05 Pulse 94 07/31/24 12:05 Resp 18 07/31/24 12:05 BP 123/84 07/31/24 12:05 Pulse Ox 94 07/31/24 12:05 O2 Del Method Room Air 07/31/24 12:05 BMI result Body Mass Index 42.0 Gen: in no acute distress HEENT: sclera anicteric, moist mucus membranes Neck: supple Lungs: clear to auscultation bilaterally Heart: regular rate and rhythm, no murmurs Abd: tense, fluid wave, non-tender Ext: 4+ bilateral leg edema with chronic venous stasis changes/crusting/hyperpigmentation Skin: warm/well-perfused Neuro: alert and oriented x3, no focal findings, no asterixis elicited Psych: appropriate affect Objective Data Active Medications Acetaminophen (Acetaminophen 325 Mg Tablet) 650 mg PO Q6H PRN PRN Reason: Pain, Mild 1-3,fever,headache Calcium Carbonate (Calcium Carbonate 750 Mg Tab.Chew) 750 mg PO Q4H PRN PRN Reason: Heartburn Enoxaparin Sodium (Enoxaparin Sodium 40 Mg/0.4 Ml Syringe) 40 mg SUBCUT Q24H [facility] Last Admin: 07/30/24 17:18 Dose: Not Given Documented By: TUAN Non-Admin Reason: Patient Refused Furosemide (Furosemide 20 Mg/2 Ml Vial) 40 mg IVPUSH DAILY@0900 [facility]; Protocol Gabapentin (Gabapentin 300 Mg Capsule) 300 mg PO TID [facility] Last Admin: 07/31/24 08:43 Dose: 300 mg Documented By: INDRA Magnesium Hydroxide (Milk Of Magnesia 30 Ml Oral.Susp) 30 ml PO DAILY PRN PRN Reason: Constipation Melatonin (Melatonin 3 Mg Tablet) 6 mg PO BEDTIME PRN PRN Reason: Insomnia Ondansetron HCl (Ondansetron Hcl 4 Mg/2 Ml Vial) 4 mg IVPUSH Q8H PRN PRN Reason: Nausea and Vomiting Sodium Chloride (0.9 % Sodium Chloride Flush 3 Ml Syringe) 3 ml IVFLUSH QSHIFT [facility] Last Admin: 07/31/24 08:42 Dose: 3 ml Documented By: INDRA Spironolactone (Spironolactone 25 Mg Tablet) 50 mg PO BID@0900,1800 [facility]; Protocol Last Admin: 07/31/24 09:35 Dose: 50 mg Documented By: INDRA Labs 07/31/24 05:52 07/31/24 05:52 Labs: Laboratory Results - last 24 hr 07/31/24 07/31/24 05:52 09:21 MCV 90.0 MCH 26.8 L MCHC 29.8 L RDW 18.5 H Plt Count 91 L MPV 10.5 Immature Gran % (Auto) 0.6 H Neut % (Auto) 65.3 Lymph % (Auto) 19.1 L [place] % (Auto) 10.0 Eos % (Auto) 3.1 Baso % (Auto) 1.9 Lymph # (Auto) 0.6 L [place] # (Auto) 0.3 Eos # (Auto) 0.1 Baso # (Auto) 0.1 Abs Immat Gran (auto) 0.02 Absolute Neuts (auto) 2.1 Absolute Nucleated RBC 0.000 Nucleated RBC % (auto) 0.0 Anion Gap 9 L Estim Creat Clear Calc 109.4 Estimated GFR > 60 Random Glucose 104 Calcium 8.2 L Magnesium 1.7 Total Bilirubin 1.7 H AST 31 ALT 11 Alkaline Phosphatase 86 Total Protein 6.5 Albumin 2.9 L Microbiology Microbiology Results: Microbiology 07/30/24 09:24 Blood Culture - Preliminary Blood - Venous No growth after 24 hours. 07/30/24 09:24 Blood Culture - Preliminary Blood - Venous No growth after 24 hours. Assessment and Plan (1) Cirrhosis: Status: Acute Plan d2 for 69yo M with decompensated HCV/EtOH cirrhosis, hx variceal bleeding s/p TIPS, polysubstance abuse presenting with worsening BLE swelling/pain, unable to walk; noncompliant with diuretics decompensated HCV/EtOH cirrhosis with ascites/edema - GI consulted, abd US with Dopplers ordered - declines paracentesis - IV furosemide, PO spironolactone - no signs of hepatic encephalopathy hx portal vein thrombosis - non-compliant with anticoagulation therapy in past - abd US with Dopplers as above pancytopenia due to cirrhosis - monitor counts neuropathic pain - gabapentin polysubstance abuse - intranasal use of heroin; Addiction Medicine consultation; was given 40mg methadone yesterday - HBV immune from prior infection, recent HIV serology + HCV viral load negative VTE ppx - enoxaparin; caution with thrombocytopenia dispo - PT consult In my clinical judgment, the patient requires continued inpatient hospitalization for the following reasons: diuresis, PT eval Total time managing care of this patient today: 45 minutes. Quality Stroke Does the patient have a stroke diagnosis?: No VTE Prior VTE?: Yes VTE Risk Level:: Medical - moderate - high VTE Device Contraindication: Treatment Not Indicated VTE Drug Contraindication: N/A - Med Ordered
--- NOTE | 2024-07-31 12:39 | PC.NURSE ---
vss and up to date at this time. nsr on the hall monitor. pt offers no complaints. resting comfortably in stretcher in no apparent distress. pt requesting lunch. lunch tray not available at this time - pt provided w/ snacks per request. respirations remain even/unlabored. pt pending bed assignment. plan of care ongoing. call cantu placed within reach.
--- NOTE | 2024-07-31 14:19 | HO.ADDICT_ITS ---
History of Present Illness Date of Service: 07/31/24 Chief Complaint: Bilateral leg pain HPI Narrative: Patient is a 69 year old male medically admitted with bilateral lower extremity edema and decompensated cirrhosis. Consult requested as patient reported ongoing opiate use at time of admission Patient seen in main ED as he was awaiting room assignment. He is awake, alert, engaged in interview. He reports using 2 bags of fentanyl IN daily, when I can get it . He states that he was unable to continue with methadone treatment following last admission due to pain in his legs and difficulty ambulating. He denies any overdose since last admission. Reports drinking 1-2 beers daily. He received methadone 40mg in ED yesterday afternoon with good effect At time of evaluation, had not received dose yet. He appeared overall comfortable, but was noted to be restless and frequently shifting positions in bed, as well as yawning. Review of Systems Constitutional: Reports as per HPI Diagnostics Vital Signs (24Hr): Vital Signs - 24 hr 07/30/24 15:07 07/30/24 16:09 07/30/24 19:24 Temperature 98 F 98.3 F Pulse Rate 117 H 122 H 123 H Respiratory Rate 18 20 19 Blood Pressure 118/81 113/81 Pulse Oximetry 99 98 95 Oxygen Delivery Method Room Air Room Air Room Air 07/30/24 21:53 07/31/24 02:04 07/31/24 03:18 Temperature 98.6 F 98.1 F Pulse Rate 93 86 116 H Respiratory Rate 18 16 17 Blood Pressure 123/80 128/83 117/74 Pulse Oximetry 95 99 95 Oxygen Delivery Method Room Air Room Air Room Air 07/31/24 05:04 07/31/24 08:41 07/31/24 12:05 Temperature 98.1 F 98.2 F Pulse Rate 84 122 H 94 Respiratory Rate 16 18 18 Blood Pressure 107/73 112/70 123/84 Pulse Oximetry 96 97 94 Oxygen Delivery Method Room Air Room Air Room Air BMI result Body Mass Index 42.0 Labs 07/31/24 05:52 07/31/24 05:52 Labs: Laboratory Results - last 48 hr 07/30/24 07/30/24 07/31/24 08:49 09:24 05:52 WBC 3.0 L 3.2 L RBC 3.14 L 2.91 L Hgb 8.5 L D 7.8 L Hct 27.5 L 26.2 L MCV 87.6 90.0 MCH 27.1 26.8 L MCHC 30.9 L 29.8 L RDW 18.2 H 18.5 H Plt Count 98 L D 91 L MPV 10.8 10.5 Immature Gran % (Auto) 0.7 H 0.6 H Neut % (Auto) 72.9 65.3 Lymph % (Auto) 16.1 L 19.1 L [place] % (Auto) 6.3 10.0 Eos % (Auto) 3.0 3.1 Baso % (Auto) 1.0 1.9 Lymph # (Auto) 0.5 L 0.6 L [place] # (Auto) 0.2 0.3 Eos # (Auto) 0.1 0.1 Baso # (Auto) 0.0 0.1 Abs Immat Gran (auto) 0.02 0.02 Absolute Neuts (auto) 2.2 2.1 Absolute Nucleated RBC 0.000 0.000 Nucleated RBC % (auto) 0.0 0.0 PT 17.5 H INR 1.5 H APTT 25.1 L Sodium 136 138 Potassium 4.9 3.9 D Chloride 108 106 Carbon Dioxide 22 27 Anion Gap 11 L 9 L BUN 7 L 9 Creatinine 0.68 0.73 Estim Creat Clear Calc 117.4 109.4 Estimated GFR > 60 > 60 Random Glucose 134 H 104 Lactic Acid 1.5 Calcium 7.9 L D 8.2 L Magnesium Total Bilirubin 1.5 H 1.7 H AST 48 H 31 ALT 8 11 Alkaline Phosphatase 87 86 Troponin I High Sens 2.7 B-Natriuretic Peptide 56 Total Protein 6.5 6.5 Albumin 2.5 L 2.9 L Lipase 35 07/31/24 09:21 WBC RBC Hgb Hct MCV MCH MCHC RDW Plt Count MPV Immature Gran % (Auto) Neut % (Auto) Lymph % (Auto) [place] % (Auto) Eos % (Auto) Baso % (Auto) Lymph # (Auto) [place] # (Auto) Eos # (Auto) Baso # (Auto) Abs Immat Gran (auto) Absolute Neuts (auto) Absolute Nucleated RBC Nucleated RBC % (auto) PT INR APTT Sodium Potassium Chloride Carbon Dioxide Anion Gap BUN Creatinine Estim Creat Clear Calc Estimated GFR Random Glucose Lactic Acid Calcium Magnesium 1.7 Total Bilirubin AST ALT Alkaline Phosphatase Troponin I High Sens B-Natriuretic Peptide Total Protein Albumin Lipase Mental Status Exam Mental Status Exam Level of Consciousness: Awake and Alert Patient Behavior: Appropriate and Cooperative Mood Description: Calm Affect Description: Calm Speech Pattern: Clear Thought Process: Intact Thought Content: positive for Intact Judgement: Fair Medications Medications Current Medications Acetaminophen (Acetaminophen 325 Mg Tablet) 650 mg PO Q6H PRN PRN Reason: Pain, Mild 1-3,fever,headache Calcium Carbonate (Calcium Carbonate 750 Mg Tab.Chew) 750 mg PO Q4H PRN PRN Reason: Heartburn Enoxaparin Sodium (Enoxaparin Sodium 40 Mg/0.4 Ml Syringe) 40 mg SUBCUT Q24H [facility] Last Admin: 07/30/24 17:18 Dose: Not Given Furosemide (Furosemide 20 Mg/2 Ml Vial) 40 mg IVPUSH DAILY@0900 [facility]; Protocol Gabapentin (Gabapentin 300 Mg Capsule) 300 mg PO TID [facility] Last Admin: 07/31/24 08:43 Dose: 300 mg Magnesium Hydroxide (Milk Of Magnesia 30 Ml Oral.Susp) 30 ml PO DAILY PRN PRN Reason: Constipation Melatonin (Melatonin 3 Mg Tablet) 6 mg PO BEDTIME PRN PRN Reason: Insomnia Methadone HCl (Methadone Hcl 20 Mg/2 Ml Oral.Conc) 40 mg PO DAILY@0800 [facility] Ondansetron HCl (Ondansetron Hcl 4 Mg/2 Ml Vial) 4 mg IVPUSH Q8H PRN PRN Reason: Nausea and Vomiting Sodium Chloride (0.9 % Sodium Chloride Flush 3 Ml Syringe) 3 ml IVFLUSH QSHIFT [facility] Last Admin: 07/31/24 08:42 Dose: 3 ml Spironolactone (Spironolactone 25 Mg Tablet) 50 mg PO BID@0900,1800 [facility]; Protocol Last Admin: 07/31/24 09:35 Dose: 50 mg Allergies Allergies Allergy/AdvReac Type Severity Reaction Status Date / Time No Known Allergies Allergy Verified 07/30/24 08:26 [No Known Allergies*] Assessment & Plan Assessment & Plan (1) Opioid use disorder: Status: Acute Code(s): F11.90 - Opioid use, unspecified, uncomplicated Assessment and Plan: * methadone 40mg daily * 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 [facility] Past Medical History Medical History Cirrhosis Polysubstance abuse Splenomegaly Pancytopenia Portal vein thrombosis HTN (hypertension) Surgical History Surgical History S/P TIPS (transjugular intrahepatic portosystemic shunt) Social History Social History Household Members: Friend(s) Housing: Apartment Do you presently have visiting nurse or other home services: Yes Unable to assess alcohol history related to: Unable to respond Alcohol intake: current Alcohol intake frequency: 3 or more drinks per day Alcohol type: beer Comment: 1:1 sitter Patient Tobacco Use Status: Current everyday Tobacco user Tobacco use type: Cigarette Cigarettes Per Day: 2 e-Cigarette/Vaping Use: Never Used Second Hand Smoke Exposure: Yes Substance Use Type: Heroin Advance Directives Date on File: 08/20/23 service: No Current occupational status: retired Current occupation: rt handed
[2024-07-31] MEDS: methADONE HCl 20 MG/2 ML ORAL.CONC 40 MG PO (15:00)
[2024-07-31] MEDS: Enoxaparin Sodium 40 MG/0.4 ML SYRINGE SUBCUT (15:16)
[2024-08-01] VITALS (9 sets, daily range): BP systolic 103–131; BP diastolic 70–87; PULSE 88–118; RESP 13–18; TEMP 36–36.8; O2SAT 92–95
[2024-08-01 06:45] LABS: MANUAL DIFF FLAG NO
[2024-08-01 06:51] LABS: Basophils Percent Auto 1.2 % (0-2); Eosinophils Absolute Auto 0.1 X10*3/uL (0.0-0.4); Eosinophils Percent Auto 3.6 % (0-4); Hematocrit 24.2 % (42.0-52.0); Hemoglobin 7.2 g/dl (14.0-18.0); Imm Gran Abs Auto 0.02 X10*3/uL (0.00-0.03); Imm Gran Pct Auto 0.8 % (0.0-0.4); Lymphocytes Absolute Auto 0.5 X10*3/uL (1.2-4.9); Lymphocytes Percent Auto 21.3 % (20-40); Mean Corpuscular HGB Conc 29.8 g/dl (31.0-36.0); Mean Corpuscular Hemoglobin 26.9 pg (27.0-33.0); Mean Corpuscular Volume 90.3 fL (80.0-98.0); Mean Platelet Volume 10.1 fL (9.4-12.4); Monocytes Absolute Auto 0.3 X10*3/uL (0.1-1.2); Monocytes Percent Auto 9.9 % (2-11); Neutrophils Absolute Auto 1.6 x10*3/uL (2.0-8.3); Neutrophils Percent Auto 63.2 % (45-73); Red Blood Count 2.68 X10*6/uL (4.60-5.80); Red Cell Distribution Width 18.2 % (11.0-16.0)
[2024-08-01 06:53] LABS: Platelet Count 76 X10*3/uL (160-400); White Blood Count 2.5 X10*3/uL (4.8-10.8)
[2024-08-01 07:05] LABS: Alanine Aminotransferase 8 U/L (0-40); Albumin Level 2.4 g/dL (3.5-5.0); Alkaline Phosphatase 83 U/L (39-117); Anion Gap 8 (12-20); Aspartate Amino Transferase 26 U/L (5-37); Blood Urea Nitrogen 9 mg/dL (9-16); Calcium 7.8 mg/dL (8.4-10.2); Carbon Dioxide 27 mmol/L (22-29); Chloride 106 mmol/L (96-108); Creatinine Clr Calc Pharmacy 116.5; Estimated Glomerular Filt Rate > 60; Glucose Random 137 mg/dL (60-115); Potassium 3.9 mmol/L (3.3-5.1); Sodium 137 mmol/L (135-145); Total Protein 5.8 g/dL (6.5-8.0)
[2024-08-01] MEDS: Furosemide 20 MG/2 ML VIAL 40 MG IVPUSH (10:28)
[2024-08-01] MEDS: Spironolactone 25 MG TABLET 50 MG PO ×2 (10:28→17:11)
[2024-08-01] MEDS: 0.9 % Sodium Chloride Flush 3 ML SYRINGE IVFLUSH ×3 (10:29→23:59)
[2024-08-01] MEDS: methADONE HCl 20 MG/2 ML ORAL.CONC 40 MG PO (10:36)
[2024-08-01] MEDS: Gabapentin 300 MG CAPSULE PO ×3 (10:36→20:02)
--- NOTE | 2024-08-01 10:48 | P.PNIM_ITS ---
Subjective Subjective Date of Service: 08/01/24 Interval History: legs + abd swelling; willing to undergo paracentesis today No hematemesis, hematochezia, or melena. Review of Systems Review of Systems: Yes all other systems are reviewed and are negative Physical Exam 2 Vital Signs: Vital Signs: Last Vital Signs Temp 98.3 F 08/01/24 07:21 Pulse 89 08/01/24 07:39 Resp 18 08/01/24 07:21 BP 122/75 08/01/24 07:39 Pulse Ox 94 08/01/24 07:39 O2 Del Method Room Air 08/01/24 07:21 BMI result Body Mass Index 41.4 Gen: in no acute distress HEENT: sclera anicteric, moist mucus membranes Neck: supple Lungs: clear to auscultation bilaterally Heart: regular rate and rhythm, no murmurs Abd: tense, fluid wave, non-tender Ext: 3+ bilateral leg edema with chronic venous stasis changes/crusting/hyperpigmentation Skin: warm/well-perfused Neuro: alert and oriented x3, no focal findings, no asterixis elicited Psych: appropriate affect Objective Data Active Medications Acetaminophen (Acetaminophen 325 Mg Tablet) 650 mg PO Q6H PRN PRN Reason: Pain, Mild 1-3,fever,headache Calcium Carbonate (Calcium Carbonate 750 Mg Tab.Chew) 750 mg PO Q4H PRN PRN Reason: Heartburn Enoxaparin Sodium (Enoxaparin Sodium 40 Mg/0.4 Ml Syringe) 40 mg SUBCUT Q24H [facility] [place] Last Admin: 07/31/24 15:16 Dose: 40 mg Documented By: INDRA Furosemide (Furosemide 20 Mg/2 Ml Vial) 40 mg IVPUSH DAILY@0900 [facility] [place]; Protocol Last Admin: 08/01/24 10:28 Dose: 40 mg Documented By: TREVA Gabapentin (Gabapentin 300 Mg Capsule) 300 mg PO TID [facility] [place] Last Admin: 08/01/24 10:36 Dose: 300 mg Documented By: FREDY Magnesium Hydroxide (Milk Of Magnesia 30 Ml Oral.Susp) 30 ml PO DAILY PRN PRN Reason: Constipation Melatonin (Melatonin 3 Mg Tablet) 6 mg PO BEDTIME PRN PRN Reason: Insomnia Methadone HCl (Methadone Hcl 20 Mg/2 Ml Oral.Conc) 40 mg PO DAILY@0800 [facility] [place] Last Admin: 08/01/24 10:36 Dose: 40 mg Documented By: FREDY Co-signed By: TREVA Ondansetron HCl (Ondansetron Hcl 4 Mg/2 Ml Vial) 4 mg IVPUSH Q8H PRN PRN Reason: Nausea and Vomiting Sodium Chloride (0.9 % Sodium Chloride Flush 3 Ml Syringe) 3 ml IVFLUSH QSHIFT [facility] Last Admin: 08/01/24 10:29 Dose: 3 ml Documented By: TREVA Spironolactone (Spironolactone 25 Mg Tablet) 50 mg PO BID@0900,1800 [facility]; Protocol Last Admin: 08/01/24 10:28 Dose: 50 mg Documented By: TREVA Labs 08/01/24 06:15 08/01/24 06:15 Labs: Laboratory Results - last 24 hr 08/01/24 06:15 MCV 90.3 MCH 26.9 L MCHC 29.8 L RDW 18.2 H Plt Count 76 L MPV 10.1 Immature Gran % (Auto) 0.8 H Neut % (Auto) 63.2 Lymph % (Auto) 21.3 [place] % (Auto) 9.9 Eos % (Auto) 3.6 Baso % (Auto) 1.2 Lymph # (Auto) 0.5 L [place] # (Auto) 0.3 Eos # (Auto) 0.1 Baso # (Auto) 0.0 Abs Immat Gran (auto) 0.02 Absolute Neuts (auto) 1.6 L Absolute Nucleated RBC 0.000 Nucleated RBC % (auto) 0.0 Anion Gap 8 L Estim Creat Clear Calc 116.5 Estimated GFR > 60 Random Glucose 137 H Calcium 7.8 L Total Bilirubin 1.0 AST 26 ALT 8 Alkaline Phosphatase 83 Total Protein 5.8 L Albumin 2.4 L abd US (07/31/24) Impression: Cholelithiasis with gallbladder wall thickening Probable cholecystitis, please correlate Portal vein and splenic vein are patent Ascites Microbiology Microbiology Results: Microbiology 07/30/24 09:24 Blood Culture - Preliminary Blood - Venous No growth after 24 hours. 07/30/24 09:24 Blood Culture - Preliminary Blood - Venous No growth after 24 hours. Assessment and Plan (1) Cirrhosis: Status: Acute Plan d3 for 69yo M with decompensated HCV/EtOH cirrhosis, hx variceal bleeding s/p TIPS, polysubstance abuse presenting with worsening BLE swelling/pain, unable to walk; noncompliant with diuretics decompensated HCV/EtOH cirrhosis with ascites/edema - GI consulted, abd US with Dopplers with patent portal + splenic veins; doubt cholecystitis as he is nontender - paracentesis [therapeutic/diagnostic] - IV furosemide, PO spironolactone - no signs of hepatic encephalopathy hx portal vein thrombosis - non-compliant with anticoagulation therapy in past - resolved on abd US as above pancytopenia due to cirrhosis - monitor counts, transfuse if Hb <7 neuropathic pain - gabapentin polysubstance abuse - intranasal use of heroin; Addiction Medicine consultated; start methadone - HBV immune from prior infection, recent HIV serology + HCV viral load negative VTE ppx - enoxaparin; caution with thrombocytopenia dispo - PT consulted, plan home with [facility] In my clinical judgment, the patient requires continued inpatient hospitalization for the following reasons: diuresis, paracentesis Total time managing care of this patient today: 45 minutes. Quality Stroke Does the patient have a stroke diagnosis?: No VTE Prior VTE?: Yes VTE Risk Level:: Medical - moderate - high VTE Device Contraindication: Treatment Not Indicated VTE Drug Contraindication: N/A - Med Ordered
[2024-08-01] MEDS: Lidocaine HCl 1 % MPF 5 ML VIAL SUBCUT (12:54)
[2024-08-01 13:28] LABS: RBC Peritoneal Fluid 0.002 X10*6/uL; WBC Peritoneal Fluid 0.242 X10*3/uL
[2024-08-01 14:02] LABS: Eosinophils Peritoneal Fl 1 %; Lymphocyte Peritoneal Fl 48 %; Monocytes Peritoneal Fl 21 %; Neutrophils Peritoneal Fluid 12 %; Other Peritioneal Fl 18 %
[2024-08-01 14:03] LABS: BF Shift QC OK YES
[2024-08-01] MEDS: Enoxaparin Sodium 40 MG/0.4 ML SYRINGE SUBCUT (15:23)
--- NOTE | 2024-08-01 15:56 | P.PNADD_ITS ---
Subjective Subjective Date of Service: 08/01/24 Reason For Visit: Bilateral leg pain Medical Problems Affecting Mental Status: No Interim History: Patient seen in follow up for OUD and AUD and withdrawal management Reports he is doing well with current methadone dose, no withdrawal sx Uncomfortable due to ascites. Declining to discuss alcohol use at this time Concerned about lack of housing Review of Systems Constitutional: Reports as per HPI Mental Status Exam Mental Status Exam Level of Consciousness: Awake, Appropriate and Alert Patient Behavior: Appropriate Mood Description: Calm Affect Description: Calm Speech Pattern: Clear Hallucinations: None Thought Process: Intact Thought Content: positive for Intact Judgement: Good Diagnostics Vital Signs (24Hr): Vital Signs - 24 hr 07/31/24 16:51 07/31/24 18:47 07/31/24 19:04 Temperature 97.5 F 97.4 F Pulse Rate 132 H 122 H 126 H Respiratory Rate 16 15 Blood Pressure 130/98 H 129/89 Pulse Oximetry 94 93 Oxygen Delivery Method Room Air Room Air 08/01/24 02:55 08/01/24 07:21 08/01/24 07:39 Temperature 96.8 F 98.3 F Pulse Rate 113 H 89 89 Respiratory Rate 16 18 Blood Pressure 110/76 122/75 122/75 Pulse Oximetry 93 94 94 Oxygen Delivery Method Room Air Room Air 08/01/24 12:05 08/01/24 12:14 08/01/24 12:24 Temperature Pulse Rate 118 H 114 H 115 H Respiratory Rate 14 16 13 Blood Pressure 120/87 126/85 103/70 Pulse Oximetry 93 93 92 Oxygen Delivery Method Room Air Room Air Room Air 08/01/24 12:32 08/01/24 15:41 Temperature 98 F Pulse Rate 116 H 88 Respiratory Rate 13 18 Blood Pressure 124/79 122/70 Pulse Oximetry 92 94 Oxygen Delivery Method Room Air Room Air BMI result Body Mass Index 41.4 Labs 08/01/24 06:15 08/01/24 06:15 Labs: Laboratory Results - last 48 hr 07/31/24 07/31/24 08/01/24 05:52 09:21 06:15 WBC 3.2 L 2.5 L RBC 2.91 L 2.68 L Hgb 7.8 L 7.2 L Hct 26.2 L 24.2 L MCV 90.0 90.3 MCH 26.8 L 26.9 L MCHC 29.8 L 29.8 L RDW 18.5 H 18.2 H Plt Count 91 L 76 L MPV 10.5 10.1 Immature Gran % (Auto) 0.6 H 0.8 H Neut % (Auto) 65.3 63.2 Lymph % (Auto) 19.1 L 21.3 [place] % (Auto) 10.0 9.9 Eos % (Auto) 3.1 3.6 Baso % (Auto) 1.9 1.2 Lymph # (Auto) 0.6 L 0.5 L [place] # (Auto) 0.3 0.3 Eos # (Auto) 0.1 0.1 Baso # (Auto) 0.1 0.0 Abs Immat Gran (auto) 0.02 0.02 Absolute Neuts (auto) 2.1 1.6 L Absolute Nucleated RBC 0.000 0.000 Nucleated RBC % (auto) 0.0 0.0 Sodium 138 137 Potassium 3.9 D 3.9 Chloride 106 106 Carbon Dioxide 27 27 Anion Gap 9 L 8 L BUN 9 9 Creatinine 0.73 0.68 Estim Creat Clear Calc 109.4 116.5 Estimated GFR > 60 > 60 Random Glucose 104 137 H Calcium 8.2 L 7.8 L Magnesium 1.7 Total Bilirubin 1.7 H 1.0 AST 31 26 ALT 11 8 Alkaline Phosphatase 86 83 Total Protein 6.5 5.8 L Albumin 2.9 L 2.4 L Peritoneal WBC Peritoneal RBC Periton Neutrophils Periton Lymphocytes Peritoneal Monocytes Peritoneal Eosinophils Peritoneal Other Cells 08/01/24 12:25 WBC RBC Hgb Hct MCV MCH MCHC RDW Plt Count MPV Immature Gran % (Auto) Neut % (Auto) Lymph % (Auto) [place] % (Auto) Eos % (Auto) Baso % (Auto) Lymph # (Auto) [place] # (Auto) Eos # (Auto) Baso # (Auto) Abs Immat Gran (auto) Absolute Neuts (auto) Absolute Nucleated RBC Nucleated RBC % (auto) Sodium Potassium Chloride Carbon Dioxide Anion Gap BUN Creatinine Estim Creat Clear Calc Estimated GFR Random Glucose Calcium Magnesium Total Bilirubin AST ALT Alkaline Phosphatase Total Protein Albumin Peritoneal WBC 0.242 Peritoneal RBC 0.002 Periton Neutrophils 12 Periton Lymphocytes 48 Peritoneal Monocytes 21 Peritoneal Eosinophils 1 Peritoneal Other Cells 18 Medications Medications Current Medications Acetaminophen (Acetaminophen 325 Mg Tablet) 650 mg PO Q6H PRN PRN Reason: Pain, Mild 1-3,fever,headache Calcium Carbonate (Calcium Carbonate 750 Mg Tab.Chew) 750 mg PO Q4H PRN PRN Reason: Heartburn Enoxaparin Sodium (Enoxaparin Sodium 40 Mg/0.4 Ml Syringe) 40 mg SUBCUT Q24H [facility] Last Admin: 08/01/24 15:23 Dose: 40 mg Furosemide (Furosemide 20 Mg/2 Ml Vial) 40 mg IVPUSH DAILY@0900 [facility]; Protocol Last Admin: 08/01/24 10:28 Dose: 40 mg Gabapentin (Gabapentin 300 Mg Capsule) 300 mg PO TID [facility] Last Admin: 08/01/24 15:23 Dose: 300 mg Magnesium Hydroxide (Milk Of Magnesia 30 Ml Oral.Susp) 30 ml PO DAILY PRN PRN Reason: Constipation Melatonin (Melatonin 3 Mg Tablet) 6 mg PO BEDTIME PRN PRN Reason: Insomnia Methadone HCl (Methadone Hcl 20 Mg/2 Ml Oral.Conc) 40 mg PO DAILY@0800 [facility] Last Admin: 08/01/24 10:36 Dose: 40 mg Ondansetron HCl (Ondansetron Hcl 4 Mg/2 Ml Vial) 4 mg IVPUSH Q8H PRN PRN Reason: Nausea and Vomiting Sodium Chloride (0.9 % Sodium Chloride Flush 3 Ml Syringe) 3 ml IVFLUSH QSHIFT [facility] Last Admin: 08/01/24 10:29 Dose: 3 ml Spironolactone (Spironolactone 25 Mg Tablet) 50 mg PO BID@0900,1800 [facility]; Protocol Last Admin: 08/01/24 10:28 Dose: 50 mg Allergies Allergies Allergy/AdvReac Type Severity Reaction Status Date / Time No Known Allergies Allergy Verified 07/30/24 08:26 [No Known Allergies*] Assessment & Plan Assessment & Plan (1) Opioid use disorder: Status: Acute Code(s): F11.90 - Opioid use, unspecified, uncomplicated Assessment and Plan: * continue methadone * 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
[2024-08-01] MEDS: Acetaminophen 325 MG TABLET 650 MG PO (19:56)
[2024-08-02] VITALS (8 sets, daily range): BP systolic 103–140; BP diastolic 68–74; PULSE 85–116; RESP 18–20; TEMP 36.2–37.1; O2SAT 92–96
[2024-08-02 06:51] LABS: MANUAL DIFF FLAG NO
[2024-08-02 07:02] LABS: Basophils Absolute Auto 0.1 X10*3/uL (0.0-0.2); Basophils Percent Auto 1.8 % (0-2); Eosinophils Absolute Auto 0.2 X10*3/uL (0.0-0.4); Eosinophils Percent Auto 5.5 % (0-4); Hematocrit 24.9 % (42.0-52.0); Hemoglobin 7.4 g/dl (14.0-18.0); Imm Gran Abs Auto 0.01 X10*3/uL (0.00-0.03); Imm Gran Pct Auto 0.4 % (0.0-0.4); Lymphocytes Absolute Auto 0.6 X10*3/uL (1.2-4.9); Lymphocytes Percent Auto 22.1 % (20-40); Mean Corpuscular HGB Conc 29.7 g/dl (31.0-36.0); Mean Corpuscular Hemoglobin 26.9 pg (27.0-33.0); Mean Corpuscular Volume 90.5 fL (80.0-98.0); Mean Platelet Volume 11.2 fL (9.4-12.4); Monocytes Absolute Auto 0.3 X10*3/uL (0.1-1.2); Monocytes Percent Auto 11.1 % (2-11); Neutrophils Absolute Auto 1.6 x10*3/uL (2.0-8.3); Neutrophils Percent Auto 59.1 % (45-73); Red Blood Count 2.75 X10*6/uL (4.60-5.80); Red Cell Distribution Width 18.5 % (11.0-16.0); White Blood Count 2.7 X10*3/uL (4.8-10.8)
[2024-08-02 07:03] LABS: Platelet Count 78 X10*3/uL (160-400)
[2024-08-02 07:15] LABS: Alanine Aminotransferase 10 U/L (0-40); Albumin Level 2.5 g/dL (3.5-5.0); Alkaline Phosphatase 96 U/L (39-117); Anion Gap 9 (12-20); Aspartate Amino Transferase 25 U/L (5-37); Bilirubin Total 0.8 mg/dL (0.0-1.0); Blood Urea Nitrogen 7 mg/dL (9-16); Calcium 7.9 mg/dL (8.4-10.2); Carbon Dioxide 30 mmol/L (22-29); Chloride 101 mmol/L (96-108); Creatinine Clr Calc Pharmacy 111.6; Estimated Glomerular Filt Rate > 60; Glucose Random 186 mg/dL (60-115); Magnesium 1.7 mg/dL (1.6-2.6); Potassium 3.6 mmol/L (3.3-5.1); Sodium 136 mmol/L (135-145); Total Protein 5.9 g/dL (6.5-8.0)
[2024-08-02 07:27] LABS: Glucose Peritoneal Fluid 211; Total Protein Peritoneal Fluid 0.8
[2024-08-02 07:28] LABS: Albumin Peritoneal Fluid 0.5
[2024-08-02 08:02] LABS: Iron 15 mcg/dL (45-160); Percent Iron Saturation 8 % (15-50); Total Iron Binding Capacity 187 mcg/dL (228-428); Unsaturated Iron Binding 172 ug/dL
[2024-08-02] MEDS: Gabapentin 300 MG CAPSULE PO ×3 (08:14→20:26)
[2024-08-02] MEDS: Furosemide 40 MG TABLET PO (08:14)
[2024-08-02 08:15] LABS: Ferritin 41 ng/mL (20-250)
[2024-08-02] MEDS: Spironolactone 25 MG TABLET 50 MG PO ×2 (08:15→18:03)
[2024-08-02] MEDS: methADONE HCl 20 MG/2 ML ORAL.CONC 40 MG PO (08:15)
[2024-08-02] MEDS: 0.9 % Sodium Chloride Flush 3 ML SYRINGE IVFLUSH ×2 (08:16→20:27)
[2024-08-02 08:43] LABS: Vitamin B12 801 pg/mL (200-900)
[2024-08-02] MEDS: Furosemide 40 MG/4 ML VIAL IVPUSH (10:28)
--- NOTE | 2024-08-02 10:52 | P.CDIM_ITS ---
PROVIDER RESPONSE TEXT: To clarify, the appropriate diagnosis supported by the clinical indicators: Morbid obesity QUERY TEXT: PHYSICIAN'S DOCUMENTATION REQUEST Date of Query: 08/02/2024 10:35 AM EST Patient Name: Benton Souza Admit Date: 07/30/2024 Dear Mindi Watson MD, A review of the medical record indicates additional documentation may be needed. Please review below and update the documentation accordingly. Clinical Indicators: Height: 5ft 4in Weight: 109.3kg BMI: 41.4 Other Clinical Notes Supporting Significance of the BMI: Nursing assessment notes Height and Weight: Extreme obesity class III with BMI 41.4 If possible, please provide an associated diagnosis related to the abnormal BMI, such as: Obesity Due to excess calories Obesity Drug induced Obesity Due to other cause Specify the other cause Morbid obesity Other (explain) Clinically unable to determine (explain) Thank you, Ml Berrios, CCS, CDIS Use of terms such as suspected, likely, concern for, or probable (associated with a specific diagnosi s that is being evaluated, monitored, or treated as if it exists) are acceptable and can be coded in the inpatient se tting, when documented at the time of discharge. Please use your independent medical judgment in providing your response. THIS QUERY IS PART OF THE PERMANENT MEDICAL RECORD
--- NOTE | 2024-08-02 11:03 | MHC.CM.PN ---
Met with patient and marketing community liaison. Per MD rounds Patient will dc with [facility] once medically cleared. Patient does not have a preference of agencies. Referrals have been sent with clinical information. Patient states that his disability benefits have stopped. It was explained to the pt that he will be responsible for contacting Medicare. DP Home with new [facility]. Patient will need assist with transport at discharge.
--- NOTE | 2024-08-02 11:05 | HO.PM.IMPN ---
Subjective Subjective Date of Service: 08/02/24 Interval History: legs still quite swollen abd less so s/p paracentesis No hematemesis, hematochezia, or melena. Review of Systems Review of Systems: Yes all other systems are reviewed and are negative Physical Exam Vital Signs: Vital Signs: Last Vital Signs Temp 98.4 F 08/02/24 07:43 Pulse 112 H 08/02/24 07:43 Resp 18 08/02/24 07:43 BP 112/72 08/02/24 07:43 Pulse Ox 96 08/02/24 07:43 O2 Del Method Room Air 08/02/24 07:43 BMI result Body Mass Index 41.4 Gen: in no acute distress HEENT: sclera anicteric, moist mucus membranes Neck: supple Lungs: clear to auscultation bilaterally Heart: regular rate and rhythm, no murmurs Abd: tense, fluid wave, non-tender, no leakage of fluid from tap site Ext: 2+ bilateral leg edema with chronic venous stasis changes/crusting/hyperpigmentation Skin: warm/well-perfused Neuro: alert and oriented x3, no focal findings, no asterixis elicited Psych: appropriate affect Objective Data Active Medications Acetaminophen (Acetaminophen 325 Mg Tablet) 650 mg PO Q6H PRN PRN Reason: Pain, Mild 1-3,fever,headache Last Admin: 08/01/24 19:56 Dose: 650 mg Documented By: ELSY Calcium Carbonate (Calcium Carbonate 750 Mg Tab.Chew) 750 mg PO Q4H PRN PRN Reason: Heartburn Enoxaparin Sodium (Enoxaparin Sodium 40 Mg/0.4 Ml Syringe) 40 mg SUBCUT Q24H [facility] Last Admin: 08/01/24 15:23 Dose: 40 mg Documented By: IRASEMA Furosemide (Furosemide 40 Mg/4 Ml Vial) 40 mg IVPUSH DAILY [facility]; Protocol Last Admin: 08/02/24 10:28 Dose: 40 mg Documented By: IRASEMA Gabapentin (Gabapentin 300 Mg Capsule) 300 mg PO TID [facility] Last Admin: 08/02/24 08:14 Dose: 300 mg Documented By: IRASEMA Magnesium Hydroxide (Milk Of Magnesia 30 Ml Oral.Susp) 30 ml PO DAILY PRN PRN Reason: Constipation Melatonin (Melatonin 3 Mg Tablet) 6 mg PO BEDTIME PRN PRN Reason: Insomnia Methadone HCl (Methadone Hcl 20 Mg/2 Ml Oral.Conc) 40 mg PO DAILY@0800 [facility] Last Admin: 08/02/24 08:15 Dose: 40 mg Documented By: IRASEMA Co-signed By: CHAY Ondansetron HCl (Ondansetron Hcl 4 Mg/2 Ml Vial) 4 mg IVPUSH Q8H PRN PRN Reason: Nausea and Vomiting Sodium Chloride (0.9 % Sodium Chloride Flush 3 Ml Syringe) 3 ml IVFLUSH QSHIFT [facility] Last Admin: 08/02/24 08:16 Dose: 3 ml Documented By: IRASEMA Spironolactone (Spironolactone 25 Mg Tablet) 50 mg PO BID@0900,1800 [facility]; Protocol Last Admin: 08/02/24 08:15 Dose: 50 mg Documented By: IRASEMA Labs 08/02/24 05:53 08/02/24 05:53 Labs: Laboratory Results - last 24 hr 08/01/24 08/02/24 08/02/24 12:25 05:53 07:39 MCV 90.5 MCH 26.9 L MCHC 29.7 L RDW 18.5 H Plt Count 78 L MPV 11.2 Immature Gran % (Auto) 0.4 Neut % (Auto) 59.1 Lymph % (Auto) 22.1 [place] % (Auto) 11.1 H Eos % (Auto) 5.5 H Baso % (Auto) 1.8 Lymph # (Auto) 0.6 L [place] # (Auto) 0.3 Eos # (Auto) 0.2 Baso # (Auto) 0.1 Abs Immat Gran (auto) 0.01 Absolute Neuts (auto) 1.6 L Absolute Nucleated RBC 0.000 Nucleated RBC % (auto) 0.0 Anion Gap 9 L Estim Creat Clear Calc 111.6 Estimated GFR > 60 Random Glucose 186 H Calcium 7.9 L Magnesium 1.7 Iron 15 L TIBC 187 L % Saturation 8 L Unsat Iron Binding 172 Ferritin 41 Total Bilirubin 0.8 AST 25 ALT 10 Alkaline Phosphatase 96 Total Protein 5.9 L Albumin 2.5 L Vitamin B12 801 Folate 12.0 Peritoneal WBC 0.242 Peritoneal RBC 0.002 Periton Neutrophils 12 Periton Lymphocytes 48 Peritoneal Monocytes 21 Peritoneal Eosinophils 1 Peritoneal Other Cells 18 Peritoneal Tot Protein 0.8 Peritoneal Albumin 0.5 Peritoneal Glucose 211 Blood Type O Positive Antibody Screen NEGATIVE Microbiology Microbiology Results: Microbiology 08/01/24 12:25 Gram Stain - Final Ascites Fluid Anaerobic Culture - Preliminary No growth to date. Body Fluid Culture - Preliminary No growth to date. 07/30/24 09:24 Blood Culture - Preliminary Blood - Venous No growth after 48 hours. 07/30/24 09:24 Blood Culture - Preliminary Blood - Venous No growth after 48 hours. Assessment and Plan (1) Cirrhosis: Status: Acute Plan d4 for 69yo M with decompensated HCV/EtOH cirrhosis, hx variceal bleeding s/p TIPS, polysubstance abuse presenting with worsening BLE swelling/pain, unable to walk; noncompliant with diuretics decompensated HCV/EtOH cirrhosis with ascites/edema - GI consulted, abd US with Dopplers with patent portal + splenic veins; doubt cholecystitis as he is nontender - paracentesis with removal of 1400 mL 08/01; SAAG 2 consistent with portal hypertension - IV furosemide, PO spironolactone; monitor electrolytes - no signs of hepatic encephalopathy - needs close GI follow-up hx portal vein thrombosis - non-compliant with anticoagulation therapy in past - resolved on abd US as above pancytopenia due to cirrhosis - monitor counts, transfuse if Hb <7 iron defiency anemia - start p.o. repletion neuropathic pain - gabapentin polysubstance abuse - intranasal use of heroin; Addiction Medicine consultated; start methadone - HBV immune from prior infection, recent HIV serology + HCV viral load negative VTE ppx - enoxaparin; caution with thrombocytopenia dispo - PT consulted, plan home with [facility]NA In my clinical judgment, the patient requires continued inpatient hospitalization for the following reasons: diuresis, severe anemia Total time managing care of this patient today: 45 minutes. Quality Stroke Does the patient have a stroke diagnosis?: No VTE Prior VTE?: Yes VTE Risk Level:: Medical - moderate - high VTE Device Contraindication: Treatment Not Indicated VTE Drug Contraindication: N/A - Med Ordered
[2024-08-02] MEDS: Ferrous Sulfate 324 MG TABLET.DR PO (12:41)
--- NOTE | 2024-08-02 14:56 | MHC.RECOVRN ---
Met with pt in 367 to follow up and provide support. Pt reports feeling good, denies withdrawal symptoms. Pt plans to go to [facility] upon discharge. Reports he is able to get there and then will discuss PT-1 with his clinician. Denies questions or concerns for t/w. Referral sent to [facility].
[2024-08-02] MEDS: Enoxaparin Sodium 40 MG/0.4 ML SYRINGE SUBCUT (16:07)
[2024-08-03] VITALS (8 sets, daily range): BP systolic 103–120; BP diastolic 62–85; PULSE 82–115; RESP 16–20; TEMP 36.2–37.2; O2SAT 93–99
[2024-08-03 06:26] LABS: Hematocrit 26.5 % (42.0-52.0); Hemoglobin 8.1 g/dl (14.0-18.0); Mean Corpuscular HGB Conc 30.6 g/dl (31.0-36.0); Mean Corpuscular Hemoglobin 27.1 pg (27.0-33.0); Mean Corpuscular Volume 88.6 fL (80.0-98.0); Mean Platelet Volume 10.2 fL (9.4-12.4); Red Blood Count 2.99 X10*6/uL (4.60-5.80); Red Cell Distribution Width 17.7 % (11.0-16.0)
[2024-08-03 06:27] LABS: Platelet Count 79 X10*3/uL (160-400); White Blood Count 2.4 X10*3/uL (4.8-10.8)
[2024-08-03 06:44] LABS: Anion Gap 10 (12-20); Blood Urea Nitrogen 8 mg/dL (9-16); Calcium 8.1 mg/dL (8.4-10.2); Carbon Dioxide 31 mmol/L (22-29); Chloride 100 mmol/L (96-108); Creatinine Clr Calc Pharmacy 121.9; Estimated Glomerular Filt Rate > 60; Glucose Random 105 mg/dL (60-115); Magnesium 1.6 mg/dL (1.6-2.6); Potassium 3.9 mmol/L (3.3-5.1); Sodium 137 mmol/L (135-145)
[2024-08-03] MEDS: Gabapentin 300 MG CAPSULE PO ×3 (08:16→19:47)
[2024-08-03] MEDS: Furosemide 40 MG/4 ML VIAL IVPUSH (08:16)
[2024-08-03] MEDS: Ferrous Sulfate 324 MG TABLET.DR PO (08:16)
[2024-08-03] MEDS: 0.9 % Sodium Chloride Flush 3 ML SYRINGE IVFLUSH ×3 (08:16→19:47)
[2024-08-03] MEDS: methADONE HCl 20 MG/2 ML ORAL.CONC 40 MG PO (08:16)
[2024-08-03] MEDS: Spironolactone 25 MG TABLET 50 MG PO ×2 (08:16→17:25)
--- NOTE | 2024-08-03 10:54 | MHC.RECOVRN ---
Met with pt to check in and provide support. Pt laying in bed, awake, alert, easily engages in conversation. Pt reports feeling excellent. Discussed [facility] again, pt looking forward to engaging in care and recovery. Denies questions or concerns for t/w. Discussed with Maria Dolores Murillo APRN.
--- NOTE | 2024-08-03 12:38 | PM.DS ---
DS: Providers Provider Date of Service: 08/03/24 Date of admission: 07/30/24 15:49 Date of discharge: 08/03/24 Primary care physician: Maria Dolores Hooper MD Consults: 07/30/24 15:52 Addiction Medicine Routine Consulting Provider: Addiction Covering Reason for consultation: PSA Has provider been notified: No 07/31/24 08:45 Consult to Gastroenterology Routine Consulting Provider: [facility] Gastroenterology Services Reason for consultation: decomp cir DS: Diagnosis Discharge Diagnosis (1) Cirrhosis: Status: Acute (2) Ascites: Status: Acute (3) Edema: Status: Acute (4) Opioid use disorder: Status: Acute (5) Pancytopenia: Status: Acute DS: Summary Hospital Course Hospital Course: From the history and physical by the admitting hospitalist, Hao Castillo DO, 07/30/24: 68yo M with 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, ongoing polysubstance abuse, presented with severe leg edema causing difficulty ambulating, likely due to decompensated cirrhosis and chronic venous stasis, patient treated with IV Lasix and spironolactone with good affect in past however extremely noncompliant with therapies. States he has not taken his meds in ?long time?. He also states that he still drinks 1-2 beers a day and snorts heroin on a regular basis. He does not take methadone from a clinic however states he takes it periodically. At this time he will be admitted with decompensated cirrhosis and bilateral leg edema 69yo M with decompensated HCV/EtOH cirrhosis, hx variceal bleeding s/p TIPS, and polysubstance abuse presenting with worsening BLE swelling/pain, inability to walk; noncompliant with diuretic. Admitted to the medical-surgical unit. Hospital course by problem: decompensated HCV/EtOH cirrhosis with ascites/edema - GI consulted, abd US with Dopplers with patent portal + splenic veins; doubt cholecystitis as he is nontender - paracentesis with removal of 1400 mL 08/01; SAAG 2 consistent with portal hypertension - IV furosemide, PO spironolactone; discharged on PO furosemide and spironolactone and should repeat CMP in 1-2 weeks - needs close GI follow-up as outpt with [facility] GI - EGD done 08/[address] Valadez showed: Small varices Portal hypertensive gastropathy x2 Endoclips present in the duodenum from a previous procedure Oozing from 1 of the Endoclips (thermal therapy) Small clean based ulcer in duodenum x2 biliary pigtail stents From review of chart, appears the biliary stents were present even in Aug 2023. Ideally, these are to be exchanged (if not removed) within 3 months but unable to corroborate this based on available records. He thinks they are close to 5 yr old. Will request records from [facility] and I told pt he needs to f/u with them to address the stents. hx portal vein thrombosis - non-compliant with anticoagulation therapy in past - resolved on abd US as above hepatic encephalopathy - started lactulose 08/03, started rifaximin 08/04, having 2 BMs/d, will need to f/u with GI pancytopenia due to cirrhosis - monitor counts, transfused 1u pRBCs 08/02 with appropriate response; repeat CBCd in 1-2 wk iron defiency anemia - started repletion neuropathic pain - gabapentin polysubstance abuse - most concerningly, intranasal use of heroin; Addiction Medicine consultated; started methadone - HBV immune from prior infection, recent HIV serology + HCV viral load negative He was discharged home with VNA services for medication management, neurologic assessment, and home PT. Time Attestation Discharge Coordination Time (in mins): 45 Quality: Safe Use of Opioids Does Pt have an Active Cancer Diagnosis on the Problem List?: No Quality: Stroke Does the patient have a stroke diagnosis?: No Physical Exam Vital Signs: Vital Signs: Last Vital Signs Temp 97.2 F 08/03/24 07:49 Pulse 82 08/03/24 10:26 Resp 18 08/03/24 07:49 BP 115/73 08/03/24 10:26 Pulse Ox 93 08/03/24 10:26 O2 Del Method Room Air 08/03/24 07:49 BMI result Body Mass Index 41.4 Gen: in no acute distress HEENT: sclera anicteric, moist mucus membranes Neck: supple Lungs: clear to auscultation bilaterally Heart: regular rate and rhythm, no murmurs Abd: tense, fluid wave, non-tender, no leakage of fluid from tap site Ext: 2+ bilateral leg edema with chronic venous stasis changes/crusting/hyperpigmentation Skin: warm/well-perfused Neuro: alert and oriented x3, no focal findings, no asterixis elicited Psych: appropriate affect DS: Data Data Completed and Pending Completed studies during hospitalization [Text1]: Laboratory Results WBC 2.4 X10*3/uL (4.8-10.8) L 08/03/24 06:01 RBC 2.99 X10*6/uL (4.60-5.80) L 08/03/24 06:01 Hgb 8.1 g/dl (14.0-18.0) L 08/03/24 06:01 Hct 26.5 % (42.0-52.0) L 08/03/24 06:01 MCV 88.6 fL (80.0-98.0) 08/03/24 06:01 MCH 27.1 pg (27.0-33.0) 08/03/24 06:01 MCHC 30.6 g/dl (31.0-36.0) L 08/03/24 06:01 RDW 17.7 % (11.0-16.0) H 08/03/24 06:01 Plt Count 79 X10*3/uL (160-400) L 08/03/24 06:01 MPV 10.2 fL (9.4-12.4) 08/03/24 06:01 Immature Gran % (Auto) 0.4 % (0.0-0.4) 08/02/24 05:53 Neut % (Auto) 59.1 % (45-73) 08/02/24 05:53 Lymph % (Auto) 22.1 % (20-40) 08/02/24 05:53 [place] % (Auto) 11.1 % (2-11) H 08/02/24 05:53 Eos % (Auto) 5.5 % (0-4) H 08/02/24 05:53 Baso % (Auto) 1.8 % (0-2) 08/02/24 05:53 Lymph # (Auto) 0.6 X10*3/uL (1.2-4.9) L 08/02/24 05:53 [place] # (Auto) 0.3 X10*3/uL (0.1-1.2) 08/02/24 05:53 Eos # (Auto) 0.2 X10*3/uL (0.0-0.4) 08/02/24 05:53 Baso # (Auto) 0.1 X10*3/uL (0.0-0.2) 08/02/24 05:53 Abs Immat Gran (auto) 0.01 X10*3/uL (0.00-0.03) 08/02/24 05:53 Absolute Neuts (auto) 1.6 x10*3/uL (2.0-8.3) L 08/02/24 05:53 Absolute Nucleated RBC 0.000 X10*3/uL (0.0-0.012) 08/03/24 06:01 Nucleated RBC % (auto) 0.0 /100WBC (0.0-0.2) 08/03/24 06:01 PT 17.5 SEC (10.9-12.4) H 07/30/24 08:49 INR 1.5 (0.9-1.1) H 07/30/24 08:49 APTT 25.1 SEC (26.0-36.8) L 07/30/24 08:49 Sodium 137 mmol/L (135-145) 08/03/24 06:01 Potassium 3.9 mmol/L (3.3-5.1) 08/03/24 06:01 Chloride 100 mmol/L (96-108) 08/03/24 06:01 Carbon Dioxide 31 mmol/L (22-29) H 08/03/24 06:01 Anion Gap 10 (12-20) L 08/03/24 06:01 BUN 8 mg/dL (9-16) L 08/03/24 06:01 Creatinine 0.65 mg/dL (0.5-1.4) 08/03/24 06:01 Estim Creat Clear Calc 121.9 08/03/24 06:01 Estimated GFR > 60 08/03/24 06:01 Random Glucose 105 mg/dL (60-115) 08/03/24 06:01 Lactic Acid 1.5 mmol/L (0.5-2.0) 07/30/24 09:24 Calcium 8.1 mg/dL (8.4-10.2) L 08/03/24 06:01 Magnesium 1.6 mg/dL (1.6-2.6) 08/03/24 06:01 Iron 15 mcg/dL (45-160) L 08/02/24 05:53 TIBC 187 mcg/dL (228-428) L 08/02/24 05:53 % Saturation 8 % (15-50) L 08/02/24 05:53 Unsat Iron Binding 172 ug/dL 08/02/24 05:53 Ferritin 41 ng/mL (20-250) 08/02/24 05:53 Total Bilirubin 0.8 mg/dL (0.0-1.0) 08/02/24 05:53 AST 25 U/L (5-37) 08/02/24 05:53 ALT 10 U/L (0-40) 08/02/24 05:53 Alkaline Phosphatase 96 U/L (39-117) 08/02/24 05:53 Troponin I High Sens 2.7 ng/L (<3.5-35.0) 07/30/24 08:49 B-Natriuretic Peptide 56 pg/mL (<100) 07/30/24 08:49 Total Protein 5.9 g/dL (6.5-8.0) L 08/02/24 05:53 Albumin 2.5 g/dL (3.5-5.0) L 08/02/24 05:53 Lipase 35 U/L (8-78) 07/30/24 08:49 Vitamin B12 801 pg/mL (200-900) 08/02/24 07:39 Folate 12.0 ng/mL (> or = 4.0) 08/02/24 07:39 Peritoneal WBC 0.242 X10*3/uL 08/01/24 12:25 Peritoneal RBC 0.002 X10*6/uL 08/01/24 12:25 Periton Neutrophils 12 % 08/01/24 12:25 Periton Lymphocytes 48 % 08/01/24 12:25 Peritoneal Monocytes 21 % 08/01/24 12:25 Peritoneal Eosinophils 1 % 08/01/24 12:25 Peritoneal Other Cells 18 % 08/01/24 12:25 Peritoneal Tot Protein 0.8 08/01/24 12:25 Peritoneal Albumin 0.5 08/01/24 12:25 Peritoneal Glucose 211 08/01/24 12:25 Blood Type O Positive 08/02/24 05:53 Antibody Screen NEGATIVE 08/02/24 05:53 Crossmatch See Detail 08/02/24 05:53 Pending studies at discharge: Pending at discharge 08/01/24 09:51 Cytology [PTH] Routine Discharge Plan Discharge Anticipated Discharge Date/Time: 08/03/24 18:00 Patient Disposition: Home Health Service Discharge Diagnosis: cirrhosis with ascites peripheral edema pancytopenia hepatic encephalopthy substance abuse Referrals: Emre Sloan [Outside] - 3-5 Days (HOME SERVICES FOR SENIOR CARE AND PHYSICAL THERAPY- A NURSE WILL CONTACT YOU TO SET UP FIRST APPOINTMENT) Maria Dolores Mcduffie MD [Primary Care Provider] - 08/25/24 1:00 pm (A follow up appointment is scheduled. If you can not make this appointment call the office to reschedule ) Brenda Valadez MD [Physician] - 2 Weeks Discharge Medications: New methadone [Methadose] 10 mg/mL Concentrate 40 mg PO DAILY@0800 Qty: 1 0RF Rx Instructions: Partial Fill upon patient request. furosemide 40 mg tablet 40 mg PO DAILY Qty: 30 0RF spironolactone 50 mg tablet 50 mg PO DAILY Qty: 30 0RF gabapentin 300 mg Capsule 300 mg PO TID Qty: 90 0RF ferrous sulfate 324 mg (65 mg iron) Tablet,Delayed Release (Dr/Ec) 324 mg PO DAILY Qty: 30 0RF Xifaxan 550 mg Tablet 550 mg PO BID Qty: 60 0RF lactulose 20 gram/30 mL Solution 20 g PO TID Qty: 1800 0RF Diet: Low salt diet Activity on Discharge: As tolerated Stand Alone Forms: Patient Portal Discharge page Print Language: Cuban Other Ambulatory Orders: Complete Blood Count Auto Diff (Routine) Timeframe: 1 Week Facility: [facility] - Location: Laboratory Ordered By: Mindi Watson Comprehensive Met. Panel (Routine) Timeframe: 1 Week Facility: [facility] - Location: Laboratory Ordered By: Mindi Watson Magnesium (Routine) Timeframe: 1 Week Facility: [facility] - Location: Laboratory Ordered By: Mindi Watson Care Plan Goals: liver health Health Concerns: cirrhosis with ascites peripheral edema pancytopenia hepatic encephalopthy substance abuse Plan of Treatment: home with VNA services less than 2000 mg/d of sodium take spironolactone 50 mg daily PLUS furosemide 40 mg daily recheck labs in 1-2 weeks [CBCd, CMP, magnesium] take iron as prescribed take lactulose 30 mL twice daily plus rifaximin 550 mg twice daily take gabapentin for neuropathic pain methadone clinic referral avoid substance abuse Please follow up with your primary care doctor within 1 week. Return to the hospital if you experience recurrent or worsening symptoms. Assessment: See Discharge Summary.
--- NOTE | 2024-08-03 12:56 | P.PNGI_ITS ---
Subjective Subjective Date of Service: 08/03/24 Interval History: Overall, reports feeling much better in terms of his abdominal discomfort and shortness of breath since para - almost 1400 cc removed. Labs reviewed, no SBP. Has been seen by PT. EGD booked today for downtrending H&H. Critical Care Time (minutes): 0 Physical Exam 2 Vital Signs: Vital Signs: Last Vital Signs Temp 97.2 F 08/03/24 07:49 Pulse 82 08/03/24 10:26 Resp 18 08/03/24 07:49 BP 115/73 08/03/24 10:26 Pulse Ox 93 08/03/24 10:26 O2 Del Method Room Air 08/03/24 07:49 BMI result Body Mass Index 41.4 Appears older than stated age No icterus appreciated Abdomen soft, distended, nontender Alert and oriented x3, asterixis + Objective Data Labs 08/03/24 06:01 08/03/24 06:01 Labs: Laboratory Results - last 24 hr 08/02/24 08/03/24 05:53 06:01 WBC 2.4 L RBC 2.99 L Hgb 8.1 L Hct 26.5 L MCV 88.6 MCH 27.1 MCHC 30.6 L RDW 17.7 H Plt Count 79 L MPV 10.2 Absolute Nucleated RBC 0.000 Nucleated RBC % (auto) 0.0 Sodium 137 Potassium 3.9 Chloride 100 Carbon Dioxide 31 H Anion Gap 10 L BUN 8 L Creatinine 0.65 Estim Creat Clear Calc 121.9 Estimated GFR > 60 Random Glucose 105 Calcium 8.1 L Magnesium 1.6 Blood Type O Positive Antibody Screen NEGATIVE Crossmatch See Detail Microbiology Microbiology Results: Microbiology 08/01/24 12:25 Ascites Fluid Gram Stain - Final 08/01/24 12:25 Ascites Fluid Anaerobic Culture - Preliminary No growth to date. 08/01/24 12:25 Ascites Fluid Body Fluid Culture - Final No growth after 2 days 07/30/24 09:24 Blood - Venous Blood Culture - Preliminary No growth after 48 hours. 07/30/24 09:24 Blood - Venous Blood Culture - Preliminary No growth after 48 hours. 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 Has worsening anemia without any overt bleeding reported by the patient. Ddx include oozing from PHG, GAVE, AVMs, low suspicion for varices s/p TIPS that was revised further 2023. ALso with mild HE on exam today. Recommendations: -Cont furosemide 40 mg and spironolactone 100 mg once daily. Can be switched to PO. -daily MELD labs -EGD today for eval of worsening anemia. -Start lactulose 30 ml TID after EGD Time Spent With Patient Time: Total time managing care of this patient today ____ minutes. Quality Stroke Does the patient have a stroke diagnosis?: No VTE Prior VTE?: Yes VTE Risk Level:: Medical - moderate - high VTE Device Contraindication: Treatment Not Indicated VTE Drug Contraindication: N/A - Med Ordered
--- NOTE | 2024-08-03 13:01 | P.CONAN_ITS ---
COUNTS INCLUDE 234 BEDS AT THE [facility] Active Problems Active Problems: All Active Problems Edema (Acute) Ascites (Acute) S/P TIPS (transjugular intrahepatic portosystemic shunt) (Acute) HTN (hypertension) (Acute) Cirrhosis (Acute) Anasarca (Acute) Pancytopenia (Acute) Edema of both lower legs (Acute) Opioid use disorder (Acute) Lumbar compression fracture (Acute) Alcohol use disorder (Acute) Elevated liver enzymes (Acute) Upper GI bleed (Acute) Portal vein thrombosis (Acute) Polysubstance abuse (Acute) Distal radius fracture, right (Acute) Current use of anticoagulant therapy (Acute) Past Medical History Medical History Cirrhosis Polysubstance abuse Splenomegaly Pancytopenia Portal vein thrombosis HTN (hypertension) Surgical History Surgical History S/P TIPS (transjugular intrahepatic portosystemic shunt) History of Problems with Anesthesia: No Social History Social History Household Members: Friend(s) Housing: Apartment Do you presently have visiting nurse or other home services: Yes Unable to assess alcohol history related to: Unable to respond Alcohol intake: current Alcohol intake frequency: 3 or more drinks per day Alcohol type: beer Comment: 1:1 sitter Patient Tobacco Use Status: Current everyday Tobacco user Tobacco use type: Cigarette Cigarettes Per Day: 2 e-Cigarette/Vaping Use: Never Used Second Hand Smoke Exposure: Yes Substance Use Type: Heroin Advance Directives Date on File: 08/20/23 service: No Current occupational status: retired Current occupation: rt handed Meds Allergies Allergy/AdvReac Type Severity Reaction Status Date / Time No Known Allergies Allergy Verified 07/30/24 08:26 [No Known Allergies*] Active Medications: Current Medications Acetaminophen (Acetaminophen 325 Mg Tablet) 650 mg PO Q6H PRN PRN Reason: Pain, Mild 1-3,fever,headache Last Admin: 08/01/24 19:56 Dose: 650 mg Calcium Carbonate (Calcium Carbonate 750 Mg Tab.Chew) 750 mg PO Q4H PRN PRN Reason: Heartburn Enoxaparin Sodium (Enoxaparin Sodium 40 Mg/0.4 Ml Syringe) 40 mg SUBCUT Q24H LEONARDO Last Admin: 08/02/24 16:07 Dose: 40 mg Ferrous Sulfate (Ferrous Sulfate 324 Mg Tablet.Dr) 324 mg PO DAILY [facility] Last Admin: 08/03/24 08:16 Dose: 324 mg Furosemide (Furosemide 40 Mg/4 Ml Vial) 40 mg IVPUSH DAILY [facility]; Protocol Last Admin: 08/03/24 08:16 Dose: 40 mg Gabapentin (Gabapentin 300 Mg Capsule) 300 mg PO TID [facility] Last Admin: 08/03/24 08:16 Dose: 300 mg Magnesium Hydroxide (Milk Of Magnesia 30 Ml Oral.Susp) 30 ml PO DAILY PRN PRN Reason: Constipation Melatonin (Melatonin 3 Mg Tablet) 6 mg PO BEDTIME PRN PRN Reason: Insomnia Methadone HCl (Methadone Hcl 20 Mg/2 Ml Oral.Conc) 40 mg PO DAILY@0800 [facility] Last Admin: 08/03/24 08:16 Dose: 40 mg Ondansetron HCl (Ondansetron Hcl 4 Mg/2 Ml Vial) 4 mg IVPUSH Q8H PRN PRN Reason: Nausea and Vomiting Sodium Chloride (0.9 % Sodium Chloride Flush 3 Ml Syringe) 3 ml IVFLUSH QSHIFT [facility] Last Admin: 08/03/24 08:16 Dose: 3 ml Spironolactone (Spironolactone 25 Mg Tablet) 50 mg PO BID@0900,1800 [facility]; Protocol Last Admin: 08/03/24 08:16 Dose: 50 mg Exam Height,Weight and Vital Signs: Height 5 ft 4 in Weight 109.3 kg Last Vital Signs Temp 97.2 F 08/03/24 07:49 Pulse 82 08/03/24 10:26 Resp 18 08/03/24 07:49 BP 115/73 08/03/24 10:26 Pulse Ox 93 08/03/24 10:26 O2 Del Method Room Air 08/03/24 07:49 Pertinent Lab Results Pertinent Lab Results: Laboratory Tests 07/30/24 07/30/24 07/31/24 08:49 09:24 05:52 WBC 3.0 L 3.2 L RBC 3.14 L 2.91 L Hgb 8.5 L D 7.8 L Hct 27.5 L 26.2 L MCV 87.6 90.0 MCH 27.1 26.8 L MCHC 30.9 L 29.8 L RDW 18.2 H 18.5 H Plt Count 98 L D 91 L MPV 10.8 10.5 Immature Gran % (Auto) 0.7 H 0.6 H Neut % (Auto) 72.9 65.3 Lymph % (Auto) 16.1 L 19.1 L [place] % (Auto) 6.3 10.0 Eos % (Auto) 3.0 3.1 Baso % (Auto) 1.0 1.9 Lymph # (Auto) 0.5 L 0.6 L [place] # (Auto) 0.2 0.3 Eos # (Auto) 0.1 0.1 Baso # (Auto) 0.0 0.1 Abs Immat Gran (auto) 0.02 0.02 Absolute Neuts (auto) 2.2 2.1 Absolute Nucleated RBC 0.000 0.000 Nucleated RBC % (auto) 0.0 0.0 PT 17.5 H INR 1.5 H APTT 25.1 L Sodium 136 138 Potassium 4.9 3.9 D Chloride 108 106 Carbon Dioxide 22 27 Anion Gap 11 L 9 L BUN 7 L 9 Creatinine 0.68 0.73 Estim Creat Clear Calc 117.4 109.4 Estimated GFR > 60 > 60 Random Glucose 134 H 104 Lactic Acid 1.5 Calcium 7.9 L D 8.2 L Magnesium Iron TIBC % Saturation Unsat Iron Binding Ferritin Total Bilirubin 1.5 H 1.7 H AST 48 H 31 ALT 8 11 Alkaline Phosphatase 87 86 Troponin I High Sens 2.7 B-Natriuretic Peptide 56 Total Protein 6.5 6.5 Albumin 2.5 L 2.9 L Lipase 35 Vitamin B12 Folate Peritoneal WBC Peritoneal RBC Periton Neutrophils Periton Lymphocytes Peritoneal Monocytes Peritoneal Eosinophils Peritoneal Other Cells Peritoneal Tot Protein Peritoneal Albumin Peritoneal Glucose Blood Type Antibody Screen Crossmatch 07/31/24 08/01/24 08/01/24 09:21 06:15 12:25 WBC 2.5 L RBC 2.68 L Hgb 7.2 L Hct 24.2 L MCV 90.3 MCH 26.9 L MCHC 29.8 L RDW 18.2 H Plt Count 76 L MPV 10.1 Immature Gran % (Auto) 0.8 H Neut % (Auto) 63.2 Lymph % (Auto) 21.3 [place] % (Auto) 9.9 Eos % (Auto) 3.6 Baso % (Auto) 1.2 Lymph # (Auto) 0.5 L [place] # (Auto) 0.3 Eos # (Auto) 0.1 Baso # (Auto) 0.0 Abs Immat Gran (auto) 0.02 Absolute Neuts (auto) 1.6 L Absolute Nucleated RBC 0.000 Nucleated RBC % (auto) 0.0 PT INR APTT Sodium 137 Potassium 3.9 Chloride 106 Carbon Dioxide 27 Anion Gap 8 L BUN 9 Creatinine 0.68 Estim Creat Clear Calc 116.5 Estimated GFR > 60 Random Glucose 137 H Lactic Acid Calcium 7.8 L Magnesium 1.7 Iron TIBC % Saturation Unsat Iron Binding Ferritin Total Bilirubin 1.0 AST 26 ALT 8 Alkaline Phosphatase 83 Troponin I High Sens B-Natriuretic Peptide Total Protein 5.8 L Albumin 2.4 L Lipase Vitamin B12 Folate Peritoneal WBC 0.242 Peritoneal RBC 0.002 Periton Neutrophils 12 Periton Lymphocytes 48 Peritoneal Monocytes 21 Peritoneal Eosinophils 1 Peritoneal Other Cells 18 Peritoneal Tot Protein 0.8 Peritoneal Albumin 0.5 Peritoneal Glucose 211 Blood Type Antibody Screen Crossmatch 08/02/24 08/02/24 08/03/24 05:53 07:39 06:01 WBC 2.7 L 2.4 L RBC 2.75 L 2.99 L Hgb 7.4 L 8.1 L Hct 24.9 L 26.5 L MCV 90.5 88.6 MCH 26.9 L 27.1 MCHC 29.7 L 30.6 L RDW 18.5 H 17.7 H Plt Count 78 L 79 L MPV 11.2 10.2 Immature Gran % (Auto) 0.4 Neut % (Auto) 59.1 Lymph % (Auto) 22.1 [place] % (Auto) 11.1 H Eos % (Auto) 5.5 H Baso % (Auto) 1.8 Lymph # (Auto) 0.6 L [place] # (Auto) 0.3 Eos # (Auto) 0.2 Baso # (Auto) 0.1 Abs Immat Gran (auto) 0.01 Absolute Neuts (auto) 1.6 L Absolute Nucleated RBC 0.000 0.000 Nucleated RBC % (auto) 0.0 0.0 PT INR APTT Sodium 136 137 Potassium 3.6 3.9 Chloride 101 100 Carbon Dioxide 30 H 31 H Anion Gap 9 L 10 L BUN 7 L 8 L Creatinine 0.71 0.65 Estim Creat Clear Calc 111.6 121.9 Estimated GFR > 60 > 60 Random Glucose 186 H 105 Lactic Acid Calcium 7.9 L 8.1 L Magnesium 1.7 1.6 Iron 15 L TIBC 187 L % Saturation 8 L Unsat Iron Binding 172 Ferritin 41 Total Bilirubin 0.8 AST 25 ALT 10 Alkaline Phosphatase 96 Troponin I High Sens B-Natriuretic Peptide Total Protein 5.9 L Albumin 2.5 L Lipase Vitamin B12 801 Folate 12.0 Peritoneal WBC Peritoneal RBC Periton Neutrophils Periton Lymphocytes Peritoneal Monocytes Peritoneal Eosinophils Peritoneal Other Cells Peritoneal Tot Protein Peritoneal Albumin Peritoneal Glucose Blood Type O Positive Antibody Screen NEGATIVE Crossmatch See Detail Airway Mallampati Class: II (edentulpus) TM Dist: >3cm Neck ROM: Full Loose/Missing/Broken Teeth: Yes, Upper and Lower Heart: RRR Lungs: CTA Assessment and Plan Assessment Anesthesia Assessment: Anesthesia Plan Discussed and Chart Reviewed Final Anesthetic Review History of Problems with Anesthesia: No NPO: Yes ASA Class: III Final Preanesthetic Review: Meds/Allgs Chart Reviewed, Consent Obtained/Reviewed and Anes Risks/Benef Reviewed Patient Risk: Intermediate Procedure Risk: Intermediate Anesthetic Plan Anesthetic Plan: MAC: Disposition: Standard PACU
--- NOTE | 2024-08-03 13:21 | W.MHC.F2F ---
Service Date Service Date: 08/03/24 Encounter Date of encounter: 08/03/24 Reasons for Services Signs and symptoms assessed: see PT eval Reason for chcf: medication management, medication treatment and teach disease management Reason for physical therapy: home safety and mobility, therapeutic exercises, gait/transfer training, assess need for DME, ADL training and energy conservation MD Overseeing Care: Maria Dolores Hooper Homebound: Leaving the home is medically contraindicated at this time without the asist of a device and/or another person due th the listed conditions above and below. Reason homebound: unsteady gait / fall risk and weakness related to hospital stay Certification: Based on the above findings, I certify that this patient is confined to the home and needs intermittent chcf care, physical therapy and/or speech therapy, or continues to need occupational therapy. The patient is under my care, and I have initiated the establishment of the plan of care. The patient will be followed by a physician who will periodically review the plan of care. Time Spent With Patient Time: Total time managing care of this patient today ____ minutes.
--- NOTE | 2024-08-03 13:49 | PC.NURSE ---
Dr. Fernandez aware that ER notation states that patient used Heroin prior to arriving on 07/30/24. No toxicology report completed. OK to proceed, no interventions per doctor bam.
--- NOTE | 2024-08-03 14:08 | P.OP_ITS ---
Operative Note Operative Note Date of Service: 08/03/24 Narrative: Procedure: Esophagogastroduodenoscopy Endoscopist: Brenda Valadez MD Indication: Anemia Anesthesia Provider: Dr Laura Fernandez Anesthesia Type: MAC ?? EGD Procedure:?? The procedure, indications, preparation and potential complications were reviewed with the patient, who indicated understanding and gave written informed consent to proceed. A physical exam was performed. []The patient was electively intubated for airway protection the anesthesiologist. The endoscope was introduced through the mouth, and advanced to the second part of duodenum. The mucosa was carefully examined on slow withdrawal of the endoscope. The patient tolerated the procedure well. There were no immediate complications.? ? EGD Findings:? * Esophagus:? Normal mucosa noted in the entire esophagus. The Z line was at 38 cm. GE junction at 40 cm. Small varices noted in the lower 3rd of the esophagus. * Stomach:?Diffuse congestion and erythema in mosaic pattern consistent with portal hypertensive gastropathy was noted in the whole stomach. Retroflexion was performed in the cardia. * Duodenum:? Normal mucosa was noted. One Endoclip was present in the duodenal bulb. A 2nd Endoclip was noted in D2 with oozing. Using soft coag settings of 2/20, the tip of the hot snare was applied to the clip itself for complete hemostasis. There was also a small 4 mm clean based ulcer in the duodenal sweep. Two pigtail stents were noticed protruding out of the major papilla. ? EGD Impressions:? * Small varices * Portal hypertensive gastropathy * x2 Endoclips present in the duodenum from a previous procedure * Oozing from 1 of the Endoclips (thermal therapy) * Small clean based ulcer in duodenum * x2 biliary pigtail stents Recommendations:?? * Will need records from [facility] [place] [facility] regarding hx of prior procedures. * From review of chart, appears the biliary stents were present even in Aug 2023. Ideally, these are to be exchanged (if not removed) within 3 months but unable to corroborate this based on available records. * No active bleeding at the time of endoscopy today. * Recommend starting omeprazole 20 mg once daily for duodenal ulcer * Lactulose 30 mL t.i.d. for hepatic encephalopathy, as previously documented
--- NOTE | 2024-08-03 14:22 | MHC.CM.PN ---
DP: PT HAS BEEN MEDICALLY CLEARED FOR DC HOME (STAYING AT A FRIEND'S HOME:[address], [place]) BLS TRANSPORT BOOKED FOR 4 PM VIA [facility]. [facility] AUTH OBTAINED FOR TRANSPORT. PT AWARE OF PLAN AND AGREEABLE. RN UPDATED. FINAL IMM DELIVERED.
--- NOTE | 2024-08-03 15:04 | P.PNIM_ITS ---
Subjective Subjective Date of Service: 08/03/24 Interval History: No hematemesis, hematochezia, or melena. Leg swelling. Review of Systems Review of Systems: Yes all other systems are reviewed and are negative Physical Exam 2 Vital Signs: Vital Signs: Last Vital Signs Temp 97.2 F 08/03/24 14:28 Pulse 115 H 08/03/24 14:28 Resp 20 08/03/24 14:28 BP 119/76 08/03/24 14:28 Pulse Ox 94 08/03/24 14:28 O2 Del Method Room Air 08/03/24 14:28 O2 Flow Rate 4 08/03/24 14:13 BMI result Body Mass Index 41.4 Gen: in no acute distress HEENT: sclera anicteric, moist mucus membranes Neck: supple Lungs: clear to auscultation bilaterally Heart: regular rate and rhythm, no murmurs Abd: tense, fluid wave, non-tender, no leakage of fluid from tap site Ext: 2+ bilateral leg edema with chronic venous stasis changes/crusting/hyperpigmentation Skin: warm/well-perfused Neuro: alert and oriented x3, no focal findings, asterixis present Psych: appropriate affect Objective Data Active Medications Acetaminophen (Acetaminophen 325 Mg Tablet) 650 mg PO Q6H PRN PRN Reason: Pain, Mild 1-3,fever,headache Last Admin: 08/01/24 19:56 Dose: 650 mg Documented By: ELSY Calcium Carbonate (Calcium Carbonate 750 Mg Tab.Chew) 750 mg PO Q4H PRN PRN Reason: Heartburn Enoxaparin Sodium (Enoxaparin Sodium 40 Mg/0.4 Ml Syringe) 40 mg SUBCUT Q24H [facility] Last Admin: 08/02/24 16:07 Dose: 40 mg Documented By: IRASEMA Ferrous Sulfate (Ferrous Sulfate 324 Mg Tablet.Dr) 324 mg PO DAILY [facility] Last Admin: 08/03/24 08:16 Dose: 324 mg Documented By: JONATAN Furosemide (Furosemide 40 Mg/4 Ml Vial) 40 mg IVPUSH DAILY [facility]; Protocol Last Admin: 08/03/24 08:16 Dose: 40 mg Documented By: JONATAN Gabapentin (Gabapentin 300 Mg Capsule) 300 mg PO TID [facility] Last Admin: 08/03/24 08:16 Dose: 300 mg Documented By: JONATAN Lactulose (Lactulose 20 Gm/30 Ml Solution) 20 gm PO TID [facility] Magnesium Hydroxide (Milk Of Magnesia 30 Ml Oral.Susp) 30 ml PO DAILY PRN PRN Reason: Constipation Melatonin (Melatonin 3 Mg Tablet) 6 mg PO BEDTIME PRN PRN Reason: Insomnia Methadone HCl (Methadone Hcl 20 Mg/2 Ml Oral.Conc) 40 mg PO DAILY@0800 [facility] Last Admin: 08/03/24 08:16 Dose: 40 mg Documented By: JONATAN Co-signed By: CHAY Naloxone HCl (Naloxone Hcl 0.4 Mg/Ml Vial) 0.04 mg IVPUSH Q5M PRN PRN Reason: Excessive sedation or RR < 8 Ondansetron HCl (Ondansetron Hcl 4 Mg/2 Ml Vial) 4 mg IVPUSH Q8H PRN PRN Reason: Nausea and Vomiting Sodium Chloride (0.9 % Sodium Chloride Flush 3 Ml Syringe) 3 ml IVFLUSH QSHIFT [facility] Last Admin: 08/03/24 08:16 Dose: 3 ml Documented By: JONATAN Spironolactone (Spironolactone 25 Mg Tablet) 50 mg PO BID@0900,1800 [facility]; Protocol Last Admin: 08/03/24 08:16 Dose: 50 mg Documented By: JONATAN Labs 08/03/24 06:01 08/03/24 06:01 Labs: Laboratory Results - last 24 hr 08/02/24 08/03/24 05:53 06:01 MCV 88.6 MCH 27.1 MCHC 30.6 L RDW 17.7 H Plt Count 79 L MPV 10.2 Absolute Nucleated RBC 0.000 Nucleated RBC % (auto) 0.0 Anion Gap 10 L Estim Creat Clear Calc 121.9 Estimated GFR > 60 Random Glucose 105 Calcium 8.1 L Magnesium 1.6 Crossmatch See Detail Microbiology Microbiology Results: Microbiology 08/01/24 12:25 Gram Stain - Final Ascites Fluid Anaerobic Culture - Preliminary No growth to date. Body Fluid Culture - Final No growth after 2 days Assessment and Plan (1) Cirrhosis: Status: Acute Plan d5 for 69yo M with decompensated HCV/EtOH cirrhosis, hx variceal bleeding s/p TIPS, polysubstance abuse presenting with worsening BLE swelling/pain, unable to walk; noncompliant with diuretics decompensated HCV/EtOH cirrhosis with ascites/edema - GI consulted, abd US with Dopplers with patent portal + splenic veins; doubt cholecystitis as he is nontender - paracentesis with removal of 1400 mL 08/01; SAAG 2 consistent with portal hypertension - IV furosemide, PO spironolactone; monitor electrolytes - no signs of hepatic encephalopathy - needs close GI follow-up - EGD done today by Dr Valadez showing: Small varices Portal hypertensive gastropathy x2 Endoclips present in the duodenum from a previous procedure Oozing from 1 of the Endoclips (thermal therapy) Small clean based ulcer in duodenum x2 biliary pigtail stents From review of chart, appears the biliary stents were present even in Aug 2023. Ideally, these are to be exchanged (if not removed) within 3 months but unable to corroborate this based on available records. Will request records from [facility] hx portal vein thrombosis - non-compliant with anticoagulation therapy in past - resolved on abd US as above hepatic encephalopathy - start lactulose pancytopenia due to cirrhosis - monitor counts, transfused 1u pRBCs with appropriate response iron defiency anemia - started repletion neuropathic pain - gabapentin polysubstance abuse - intranasal use of heroin; Addiction Medicine consultated; start methadone - HBV immune from prior infection, recent HIV serology + HCV viral load negative VTE ppx - enoxaparin; caution with thrombocytopenia dispo - PT consulted, plan home with VNA In my clinical judgment, the patient requires continued inpatient hospitalization for the following reasons: encephalopathy Total time managing care of this patient today: 45 minutes. Quality Stroke Does the patient have a stroke diagnosis?: No VTE Prior VTE?: Yes VTE Risk Level:: Medical - moderate - high VTE Device Contraindication: Treatment Not Indicated VTE Drug Contraindication: N/A - Med Ordered
[2024-08-03] MEDS: Enoxaparin Sodium 40 MG/0.4 ML SYRINGE SUBCUT (15:13)
[2024-08-03] MEDS: Lactulose 20 GM/30 ML SOLUTION PO (16:30)
[2024-08-04 03:45] VITALS: BP 112/76; PULSE 105; RESP 18; TEMP 37; O2SAT 94
[2024-08-04 06:20] LABS: INTERNATIONAL NORM RATIO 1.5 (0.9-1.1); Prothrombin Time 17.2 SEC (10.9-12.4)
[2024-08-04 06:21] LABS: Ammonia 86 umol/L (13-55)
[2024-08-04 06:22] LABS: Hematocrit 27.5 % (42.0-52.0); Hemoglobin 8.3 g/dl (14.0-18.0); Mean Corpuscular HGB Conc 30.2 g/dl (31.0-36.0); Mean Corpuscular Volume 89.6 fL (80.0-98.0); Mean Platelet Volume 10.3 fL (9.4-12.4); Platelet Count 82 X10*3/uL (160-400); Red Blood Count 3.07 X10*6/uL (4.60-5.80); White Blood Count 2.8 X10*3/uL (4.8-10.8)
[2024-08-04 06:30] LABS: Alanine Aminotransferase 12 U/L (0-40); Albumin Level 2.5 g/dL (3.5-5.0); Alkaline Phosphatase 78 U/L (39-117); Anion Gap 9 (12-20); Aspartate Amino Transferase 26 U/L (5-37); Bilirubin Total 0.9 mg/dL (0.0-1.0); Blood Urea Nitrogen 9 mg/dL (9-16); Calcium 8.3 mg/dL (8.4-10.2); Carbon Dioxide 31 mmol/L (22-29); Chloride 101 mmol/L (96-108); Creatinine Clr Calc Pharmacy 116.5; Estimated Glomerular Filt Rate > 60; Glucose Random 144 mg/dL (60-115); Magnesium 1.8 mg/dL (1.6-2.6); Potassium 3.8 mmol/L (3.3-5.1); Sodium 137 mmol/L (135-145)
[2024-08-04 08:05] VITALS: BP 125/80; PULSE 106; RESP 18; TEMP 36.6; O2SAT 95
[2024-08-04] MEDS: 0.9 % Sodium Chloride Flush 3 ML SYRINGE IVFLUSH ×3 (08:21→19:57)
[2024-08-04] MEDS: Lactulose 20 GM/30 ML SOLUTION PO (08:21)
[2024-08-04] MEDS: methADONE HCl 20 MG/2 ML ORAL.CONC 40 MG PO (08:21)
[2024-08-04] MEDS: Spironolactone 25 MG TABLET 50 MG PO ×2 (08:21→17:36)
[2024-08-04] MEDS: Gabapentin 300 MG CAPSULE PO ×3 (08:21→19:55)
[2024-08-04] MEDS: Ferrous Sulfate 324 MG TABLET.DR PO (08:21)
[2024-08-04] MEDS: Furosemide 40 MG/4 ML VIAL IVPUSH (08:21)
--- NOTE | 2024-08-04 10:29 | P.PNIM_ITS ---
Subjective Subjective Date of Service: 08/04/24 Interval History: No hematemesis, hematochezia, or melena. Edema improved. Has asterixis but no confusion. Review of Systems Review of Systems: Yes all other systems are reviewed and are negative Physical Exam 2 Vital Signs: Vital Signs: Last Vital Signs Temp 97.8 F 08/04/24 08:05 Pulse 106 H 08/04/24 08:05 Resp 18 08/04/24 08:05 BP 125/80 08/04/24 08:05 Pulse Ox 95 08/04/24 08:05 O2 Del Method Room Air 08/04/24 08:05 O2 Flow Rate 4 08/03/24 14:13 BMI result Body Mass Index 41.4 Gen: in no acute distress HEENT: sclera anicteric, moist mucus membranes Neck: supple Lungs: clear to auscultation bilaterally Heart: regular rate and rhythm, no murmurs Abd: tense, fluid wave, non-tender, no leakage of fluid from tap site Ext: 2+ bilateral leg edema with chronic venous stasis changes/crusting/hyperpigmentation Skin: warm/well-perfused Neuro: alert and oriented x3, no focal findings, asterixis present Psych: appropriate affect Objective Data Active Medications Acetaminophen (Acetaminophen 325 Mg Tablet) 650 mg PO Q6H PRN PRN Reason: Pain, Mild 1-3,fever,headache Last Admin: 08/01/24 19:56 Dose: 650 mg Documented By: ELSY Calcium Carbonate (Calcium Carbonate 750 Mg Tab.Chew) 750 mg PO Q4H PRN PRN Reason: Heartburn Enoxaparin Sodium (Enoxaparin Sodium 40 Mg/0.4 Ml Syringe) 40 mg SUBCUT Q24H [facility] Last Admin: 08/03/24 15:13 Dose: 40 mg Documented By: JONATAN Ferrous Sulfate (Ferrous Sulfate 324 Mg Tablet.Dr) 324 mg PO DAILY [facility] Last Admin: 08/04/24 08:21 Dose: 324 mg Documented By: FLORINA Furosemide (Furosemide 40 Mg/4 Ml Vial) 40 mg IVPUSH DAILY [facility]; Protocol Last Admin: 08/04/24 08:21 Dose: 40 mg Documented By: FLORINA Gabapentin (Gabapentin 300 Mg Capsule) 300 mg PO TID [facility] Last Admin: 08/04/24 08:21 Dose: 300 mg Documented By: FLORINA Lactulose (Lactulose 20 Gm/30 Ml Solution) 20 gm PO TID [facility] Last Admin: 08/04/24 08:21 Dose: 20 gm Documented By: FLORINA Magnesium Hydroxide (Milk Of Magnesia 30 Ml Oral.Susp) 30 ml PO DAILY PRN PRN Reason: Constipation Melatonin (Melatonin 3 Mg Tablet) 6 mg PO BEDTIME PRN PRN Reason: Insomnia Methadone HCl (Methadone Hcl 20 Mg/2 Ml Oral.Conc) 40 mg PO DAILY@0800 [facility] Last Admin: 08/04/24 08:21 Dose: 40 mg Documented By: FLORINA Co-signed By: BREE Ondansetron HCl (Ondansetron Hcl 4 Mg/2 Ml Vial) 4 mg IVPUSH Q8H PRN PRN Reason: Nausea and Vomiting Rifaximin (Rifaximin 550 Mg Tablet) 550 mg PO BID [facility] Sodium Chloride (0.9 % Sodium Chloride Flush 3 Ml Syringe) 3 ml IVFLUSH QSHIFT [facility] Last Admin: 08/04/24 08:21 Dose: 3 ml Documented By: FLORINA Spironolactone (Spironolactone 25 Mg Tablet) 50 mg PO BID@0900,1800 [facility]; Protocol Last Admin: 08/04/24 08:21 Dose: 50 mg Documented By: FLORINA Labs 08/04/24 06:06 08/04/24 06:05 Labs: Laboratory Results - last 24 hr 08/04/24 08/04/24 06:05 06:06 MCV 89.6 MCH 27.0 MCHC 30.2 L RDW 18.0 H Plt Count 82 L MPV 10.3 Absolute Nucleated RBC 0.000 Nucleated RBC % (auto) 0.0 PT 17.2 H INR 1.5 H Anion Gap 9 L Estim Creat Clear Calc 116.5 Estimated GFR > 60 Random Glucose 144 H Calcium 8.3 L Magnesium 1.8 Total Bilirubin 0.9 AST 26 ALT 12 Alkaline Phosphatase 78 Ammonia 86 H Total Protein 6.0 L Albumin 2.5 L Microbiology Microbiology Results: Microbiology 08/01/24 12:25 Gram Stain - Final Ascites Fluid Anaerobic Culture - Preliminary No growth to date. Body Fluid Culture - Final No growth after 2 days Assessment and Plan (1) Cirrhosis: Status: Acute Plan d6 for 69yo M with decompensated HCV/EtOH cirrhosis, hx variceal bleeding s/p TIPS, polysubstance abuse presenting with worsening BLE swelling/pain, unable to walk; noncompliant with diuretics decompensated HCV/EtOH cirrhosis with ascites/edema - GI consulted, abd US with Dopplers with patent portal + splenic veins; doubt cholecystitis as he is nontender - paracentesis with removal of 1400 mL 08/01; SAAG 2 consistent with portal hypertension - IV furosemide, PO spironolactone; monitor electrolytes - needs close GI follow-up - EGD done today by Dr Valadez showing: Small varices Portal hypertensive gastropathy x2 Endoclips present in the duodenum from a previous procedure Oozing from 1 of the Endoclips (thermal therapy) Small clean based ulcer in duodenum x2 biliary pigtail stents From review of chart, appears the biliary stents were present even in Aug 2023. Ideally, these are to be exchanged (if not removed) within 3 months but unable to corroborate this based on available records. He thinks they are close to 5 yr old. Will request records from [facility] and I told pt he needs to f/u with them to address the stents hx portal vein thrombosis - non-compliant with anticoagulation therapy in past - resolved on abd US as above hepatic encephalopathy - started lactulose 08/03, start rifaximin 08/04, having 2 BMs/d, will need to f/u with pancytopenia due to cirrhosis - monitor counts, transfused 1u pRBCs with appropriate response iron defiency anemia - started repletion neuropathic pain - gabapentin polysubstance abuse - intranasal use of heroin; Addiction Medicine consultated; start methadone - HBV immune from prior infection, recent HIV serology + HCV viral load negative VTE ppx - enoxaparin; caution with thrombocytopenia dispo - PT consulted, plan home with VNA In my clinical judgment, the patient requires continued inpatient hospitalization for the following reasons: encephalopathy Total time managing care of this patient today: 45 minutes. Quality Stroke Does the patient have a stroke diagnosis?: No VTE Prior VTE?: Yes VTE Risk Level:: Medical - moderate - high VTE Device Contraindication: Treatment Not Indicated VTE Drug Contraindication: N/A - Med Ordered
--- NOTE | 2024-08-04 10:43 | HO.POSTANES ---
Post Anesthesia Evaluation Post Anesthesia Evaluation Date of Service: 08/04/24 Vital Signs: Vital Signs Temp Pulse Resp BP Pulse Ox O2 Del Method 08/04/24 08:05 97.8 F 106 H 18 125/80 95 Room Air 08/04/24 03:45 98.6 F 105 H 18 112/76 94 Room Air Anesthesia: Monitored Mental Status: Awake Pain Control: Satisfactory Nausea/Vomiting: None Hydration: Adequate Anesthesia-Related Issues: No Anes. Related Issues
[2024-08-04] MEDS: rifAXIMin 550 MG TABLET PO ×2 (10:50→19:55)
[2024-08-04 11:14] VITALS: BP 125/80; PULSE 106; O2SAT 95
--- NOTE | 2024-08-04 14:34 | MHC.CM.PN ---
EMR REVIEWED AND PER MD ROUNDS, PT IS NOT MEDICALLY CLEARED FOR DC HOME. (ENCEPHALOPATHY) GABRIELLE MÉNDEZ UPDATED AND ARE REQUESTING A CURRENT PCP F/U APPT BE MADE. PCP APPT WITH DR. MUÑOZ 08/25/24. CM WILL CONTINUE TO FOLLOW FOR ANY CHANGE TO DC PLAN.
[2024-08-04 15:27] VITALS: BP 132/66; PULSE 80; RESP 18; TEMP 36.5; O2SAT 96
[2024-08-04] MEDS: Enoxaparin Sodium 40 MG/0.4 ML SYRINGE SUBCUT (15:43)
[2024-08-04 17:36] VITALS: BP 130/60
[2024-08-04 19:47] VITALS: BP 112/67; PULSE 80; RESP 18; TEMP 36.8; O2SAT 94
[2024-08-05 03:17] VITALS: BP 110/61; PULSE 74; RESP 16; TEMP 36.3; O2SAT 94
[2024-08-05] MEDS: 0.9 % Sodium Chloride Flush 3 ML SYRINGE IVFLUSH ×3 (07:57→19:36)
[2024-08-05] MEDS: Spironolactone 25 MG TABLET 50 MG PO ×2 (07:58→17:45)
[2024-08-05] MEDS: Lactulose 20 GM/30 ML SOLUTION PO ×3 (07:58→19:35)
[2024-08-05] MEDS: methADONE HCl 20 MG/2 ML ORAL.CONC 40 MG PO (07:58)
[2024-08-05] MEDS: rifAXIMin 550 MG TABLET PO ×2 (07:59→19:34)
[2024-08-05] MEDS: Ferrous Sulfate 324 MG TABLET.DR PO (07:59)
[2024-08-05] MEDS: Furosemide 40 MG TABLET PO (07:59)
[2024-08-05] MEDS: Gabapentin 300 MG CAPSULE PO ×3 (07:59→19:35)
[2024-08-05 08:00] VITALS: BP 115/62; PULSE 74; RESP 18; TEMP 36.3; O2SAT 96
[2024-08-05] MEDS: Omeprazole 20 MG CAPSULE.DR PO (08:36)
--- NOTE | 2024-08-05 13:44 | HO.PM.IMPN ---
Subjective Subjective Date of Service: 08/05/24 Interval History: No acute issues overnight. No further bleeding. Hemoglobin stable Review of Systems Denies chest pain Denies shortness of breath Denies nausea vomiting diarrhea Denies fever chills Physical Exam Vital Signs: Vital Signs: Last Vital Signs Temp 97.4 F 08/05/24 08:00 Pulse 74 08/05/24 08:00 Resp 18 08/05/24 08:00 BP 115/62 08/05/24 08:00 Pulse Ox 96 08/05/24 08:00 O2 Del Method Room Air 08/05/24 08:00 O2 Flow Rate 4 08/03/24 14:13 BMI result Body Mass Index 41.4 Objective Data Active Medications Acetaminophen (Acetaminophen 325 Mg Tablet) 650 mg PO Q6H PRN PRN Reason: Pain, Mild 1-3,fever,headache Last Admin: 08/01/24 19:56 Dose: 650 mg Documented By: ELSY Calcium Carbonate (Calcium Carbonate 750 Mg Tab.Chew) 750 mg PO Q4H PRN PRN Reason: Heartburn Enoxaparin Sodium (Enoxaparin Sodium 40 Mg/0.4 Ml Syringe) 40 mg SUBCUT Q24H [facility] Last Admin: 08/04/24 15:43 Dose: 40 mg Documented By: CHAY Ferrous Sulfate (Ferrous Sulfate 324 Mg Tablet.) 324 mg PO DAILY [facility] Last Admin: 08/05/24 07:59 Dose: 324 mg Documented By: IRASEMA Furosemide (Furosemide 40 Mg Tablet) 40 mg PO DAILY [facility]; Protocol Last Admin: 08/05/24 07:59 Dose: 40 mg Documented By: IRASEMA Gabapentin (Gabapentin 300 Mg Capsule) 300 mg PO TID [facility] Last Admin: 08/05/24 07:59 Dose: 300 mg Documented By: IRASEMA Lactulose (Lactulose 20 Gm/30 Ml Solution) 20 gm PO TID [facility] Last Admin: 08/05/24 07:58 Dose: 20 gm Documented By: IRASEMA Magnesium Hydroxide (Milk Of Magnesia 30 Ml Oral.Susp) 30 ml PO DAILY PRN PRN Reason: Constipation Melatonin (Melatonin 3 Mg Tablet) 6 mg PO BEDTIME PRN PRN Reason: Insomnia Methadone HCl (Methadone Hcl 20 Mg/2 Ml Oral.Conc) 40 mg PO DAILY@0800 [facility] Last Admin: 08/05/24 07:58 Dose: 40 mg Documented By: IRASEMA Co-signed By: TREVA Ondansetron HCl (Ondansetron Hcl 4 Mg/2 Ml Vial) 4 mg IVPUSH Q8H PRN PRN Reason: Nausea and Vomiting Rifaximin (Rifaximin 550 Mg Tablet) 550 mg PO BID [facility] Last Admin: 08/05/24 07:59 Dose: 550 mg Documented By: IRASEMA Sodium Chloride (0.9 % Sodium Chloride Flush 3 Ml Syringe) 3 ml IVFLUSH QSHIFT [facility] Last Admin: 08/05/24 07:57 Dose: 3 ml Documented By: IRASEMA Spironolactone (Spironolactone 25 Mg Tablet) 50 mg PO BID@0900,1800 [facility]; Protocol Last Admin: 08/05/24 07:58 Dose: 50 mg Documented By: IRASEMA Labs 08/04/24 06:06 08/04/24 06:05 Labs: Laboratory Results - last 24 hr 08/02/24 05:53 Crossmatch See Detail Microbiology Microbiology Results: Microbiology 08/01/24 12:25 Gram Stain - Final Ascites Fluid Anaerobic Culture - Preliminary No growth to date. Body Fluid Culture - Final No growth after 2 days 07/30/24 09:24 Blood Culture - Final Blood - Venous No growth after 5 days. 07/30/24 09:24 Blood Culture - Final Blood - Venous No growth after 5 days. Assessment and Plan (1) Cirrhosis: Status: Acute (2) Ascites: Status: Acute (3) Anemia: Status: Acute Plan 69yo M with decompensated HCV/EtOH cirrhosis, hx variceal bleeding s/p TIPS, polysubstance abuse presenting with worsening BLE swelling/pain, unable to walk; noncompliant with diuretics 1.Decompensated HCV/EtOH cirrhosis with ascites/edema - GI consulted, abd US with Dopplers with patent portal + splenic veins; doubt cholecystitis as he is nontender - paracentesis with removal of 1400 mL 08/01; SAAG 2 consistent with portal hypertension - IV furosemide, PO spironolactone; Small varices Portal hypertensive gastropathy x2 Endoclips present in the duodenum from a previous procedure Oozing from 1 of the Endoclips (thermal therapy) Small clean based ulcer in duodenum x2 biliary pigtail stents From review of chart, appears the biliary stents were present even in Aug 2023. Ideally, these are to be exchanged (if not removed) within 3 months but unable to corroborate this based on available records. Will request records from [facility] 2.Hx portal vein thrombosis - non-compliant with anticoagulation therapy in past - resolved on abd US as above 3.Hepatic encephalopathy -improved with lactulose -follow clinically 4.Pancytopenia -follow cbc -treat as indicated 5.Polysubstance abuse - intranasal use of heroin; Addiction Medicine consultated; start methadone - HBV immune from prior infection, recent HIV serology + HCV viral load negative Full code Lovenox In my clinical judgment, the patient requires continued inpatient hospitalization for the following reasons: encephalopathy Quality Stroke Does the patient have a stroke diagnosis?: No VTE Prior VTE?: Yes VTE Risk Level:: Medical - moderate - high VTE Device Contraindication: Treatment Not Indicated VTE Drug Contraindication: N/A - Med Ordered
[2024-08-05 15:12] VITALS: BP 114/79; PULSE 86; RESP 20; TEMP 36.8; O2SAT 94
[2024-08-05] MEDS: Enoxaparin Sodium 40 MG/0.4 ML SYRINGE SUBCUT (15:14)
[2024-08-05 19:32] VITALS: BP 113/68; PULSE 85; RESP 16; TEMP 36.4; O2SAT 94
[2024-08-05] MEDS: Furosemide 40 MG/4 ML VIAL IVPUSH (19:36)
[2024-08-06 03:11] VITALS: BP 133/69; PULSE 105; RESP 16; TEMP 36.6; O2SAT 94
[2024-08-06 06:06] LABS: Basophils Percent Auto 1.5 % (0-2); Eosinophils Absolute Auto 0.1 X10*3/uL (0.0-0.4); Hematocrit 26.1 % (42.0-52.0); Hemoglobin 7.9 g/dl (14.0-18.0); Imm Gran Abs Auto 0.01 X10*3/uL (0.00-0.03); Imm Gran Pct Auto 0.5 % (0.0-0.4); Lymphocytes Absolute Auto 0.5 X10*3/uL (1.2-4.9); Lymphocytes Percent Auto 25.3 % (20-40); MANUAL DIFF FLAG SCAN; Mean Corpuscular HGB Conc 30.3 g/dl (31.0-36.0); Mean Corpuscular Hemoglobin 26.8 pg (27.0-33.0); Mean Corpuscular Volume 88.5 fL (80.0-98.0); Mean Platelet Volume 10.4 fL (9.4-12.4); Monocytes Absolute Auto 0.2 X10*3/uL (0.1-1.2); Monocytes Percent Auto 10.6 % (2-11); Neutrophils Absolute Auto 1.2 x10*3/uL (2.0-8.3); Neutrophils Percent Auto 58.1 % (45-73); Platelet Count 74 X10*3/uL (160-400); Red Blood Count 2.95 X10*6/uL (4.60-5.80); SCAN SMEAR FLAG 1
[2024-08-06 06:20] LABS: Alanine Aminotransferase 12 U/L (0-40); Albumin Level 2.5 g/dL (3.5-5.0); Alkaline Phosphatase 91 U/L (39-117); Anion Gap 10 (12-20); Aspartate Amino Transferase 38 U/L (5-37); Bilirubin Total 0.7 mg/dL (0.0-1.0); Blood Urea Nitrogen 7 mg/dL (9-16); Calcium 8.1 mg/dL (8.4-10.2); Carbon Dioxide 30 mmol/L (22-29); Chloride 101 mmol/L (96-108); Creatinine Clr Calc Pharmacy 129.9; Estimated Glomerular Filt Rate > 60; Glucose Fasting 126 mg/dL (60-99); Potassium 3.8 mmol/L (3.3-5.1); Sodium 137 mmol/L (135-145); Total Protein 6.1 g/dL (6.5-8.0)
[2024-08-06 06:31] LABS: SLIDE REVIEW VERIFIED
[2024-08-06 07:45] VITALS: BP 103/61; PULSE 72; RESP 18; TEMP 37.1; O2SAT 94
[2024-08-06] MEDS: 0.9 % Sodium Chloride Flush 3 ML SYRINGE IVFLUSH ×3 (09:01→19:50)
[2024-08-06] MEDS: Spironolactone 25 MG TABLET 50 MG PO ×2 (09:02→18:02)
[2024-08-06] MEDS: Ferrous Sulfate 324 MG TABLET.DR PO (09:02)
[2024-08-06] MEDS: methADONE HCl 20 MG/2 ML ORAL.CONC 40 MG PO (09:02)
[2024-08-06] MEDS: Lactulose 20 GM/30 ML SOLUTION PO ×2 (09:02→16:21)
[2024-08-06] MEDS: Furosemide 40 MG TABLET PO (09:03)
[2024-08-06] MEDS: rifAXIMin 550 MG TABLET PO ×2 (09:03→19:50)
[2024-08-06] MEDS: Gabapentin 300 MG CAPSULE PO ×3 (09:03→19:50)
--- NOTE | 2024-08-06 10:43 | HO.PM.IMPN ---
Subjective Subjective Date of Service: 08/06/24 Interval History: No acute issues overnight. Given pulse dose Lasix last night with fair results. Still with significant edema and foot pain. Essentially nonambulatory Review of Systems Denies chest pain Denies shortness of breath Denies nausea vomiting diarrhea Denies fever chills Physical Exam Vital Signs: Vital Signs: Last Vital Signs Temp 98.7 F 08/06/24 07:45 Pulse 72 08/06/24 07:45 Resp 18 08/06/24 07:45 BP 103/61 08/06/24 07:45 Pulse Ox 94 08/06/24 07:45 O2 Del Method Room Air 08/06/24 07:45 O2 Flow Rate 4 08/03/24 14:13 BMI result Body Mass Index 41.4 Const: Other: Awake alert uncomfortable appearing Resp: Other: Clear to auscultation bilaterally diminished at bases Cardio: Other: Tachycardic; no S4; positive S1-S2; no S3 murmurs rubs or gallops GI: Other: Distended and firm with palpable fluid wave. Bowel sounds quiet Extrem: Other: See ER admitting pictures Objective Data Active Medications Acetaminophen (Acetaminophen 325 Mg Tablet) 650 mg PO Q6H PRN PRN Reason: Pain, Mild 1-3,fever,headache Last Admin: 08/01/24 19:56 Dose: 650 mg Documented By: ELSY Calcium Carbonate (Calcium Carbonate 750 Mg Tab.Chew) 750 mg PO Q4H PRN PRN Reason: Heartburn Enoxaparin Sodium (Enoxaparin Sodium 40 Mg/0.4 Ml Syringe) 40 mg SUBCUT Q24H [facility] Last Admin: 08/05/24 15:14 Dose: 40 mg Documented By: IRASEMA Ferrous Sulfate (Ferrous Sulfate 324 Mg Tablet.) 324 mg PO DAILY [facility] Last Admin: 08/06/24 09:02 Dose: 324 mg Documented By: IRASEMA Furosemide (Furosemide 40 Mg Tablet) 40 mg PO DAILY [facility]; Protocol Last Admin: 08/06/24 09:03 Dose: 40 mg Documented By: IRASEMA Gabapentin (Gabapentin 300 Mg Capsule) 300 mg PO TID [facility] Last Admin: 08/06/24 09:03 Dose: 300 mg Documented By: IRASEMA Lactulose (Lactulose 20 Gm/30 Ml Solution) 20 gm PO TID [facility] Last Admin: 08/06/24 09:02 Dose: 20 gm Documented By: IRASEMA Magnesium Hydroxide (Milk Of Magnesia 30 Ml Oral.Susp) 30 ml PO DAILY PRN PRN Reason: Constipation Melatonin (Melatonin 3 Mg Tablet) 6 mg PO BEDTIME PRN PRN Reason: Insomnia Methadone HCl (Methadone Hcl 20 Mg/2 Ml Oral.Conc) 40 mg PO DAILY@0800 [facility] Last Admin: 08/06/24 09:02 Dose: 40 mg Documented By: IRASEMA Co-signed By: TREVA Ondansetron HCl (Ondansetron Hcl 4 Mg/2 Ml Vial) 4 mg IVPUSH Q8H PRN PRN Reason: Nausea and Vomiting Rifaximin (Rifaximin 550 Mg Tablet) 550 mg PO BID [facility] Last Admin: 08/06/24 09:03 Dose: 550 mg Documented By: IRASEMA Sodium Chloride (0.9 % Sodium Chloride Flush 3 Ml Syringe) 3 ml IVFLUSH QSHIFT [facility] Last Admin: 08/06/24 09:01 Dose: 3 ml Documented By: IRASEMA Spironolactone (Spironolactone 25 Mg Tablet) 50 mg PO BID@0900,1800 [facility]; Protocol Last Admin: 08/06/24 09:02 Dose: 50 mg Documented By: IRASEMA Labs 08/06/24 05:34 08/06/24 05:34 Labs: Laboratory Results - last 24 hr 08/06/24 05:34 MCV 88.5 MCH 26.8 L MCHC 30.3 L RDW 18.0 H Plt Count 74 L MPV 10.4 Immature Gran % (Auto) 0.5 H Neut % (Auto) 58.1 Lymph % (Auto) 25.3 [place] % (Auto) 10.6 Eos % (Auto) 4.0 Baso % (Auto) 1.5 Lymph # (Auto) 0.5 L [place] # (Auto) 0.2 Eos # (Auto) 0.1 Baso # (Auto) 0.0 Abs Immat Gran (auto) 0.01 Absolute Neuts (auto) 1.2 L Absolute Nucleated RBC 0.000 Nucleated RBC % (auto) 0.0 Smear Tech's Comments VERIFIED Anion Gap 10 L Estim Creat Clear Calc 129.9 Estimated GFR > 60 Fasting Glucose 126 H Calcium 8.1 L Total Bilirubin 0.7 AST 38 H ALT 12 Alkaline Phosphatase 91 Total Protein 6.1 L Albumin 2.5 L Microbiology Microbiology Results: Microbiology 08/01/24 12:25 Gram Stain - Final Ascites Fluid Anaerobic Culture - Final NO GROWTH AFTER 5 DAYS Body Fluid Culture - Final No growth after 2 days Assessment and Plan (1) Cirrhosis: Status: Acute (2) Anasarca: Status: Acute Plan 69yo M with decompensated HCV/EtOH cirrhosis, hx variceal bleeding s/p TIPS, polysubstance abuse presenting with worsening BLE swelling/pain, unable to walk; noncompliant with diuretics 1.Decompensated HCV/EtOH cirrhosis with ascites/edema - GI consulted, abd US with Dopplers with patent portal + splenic veins; doubt cholecystitis as he is nontender - paracentesis with removal of 1400 mL 08/01; SAAG 2 consistent with portal hypertension - IV furosemide, PO spironolactone; Small varices Portal hypertensive gastropathy x2 Endoclips present in the duodenum from a previous procedure Oozing from 1 of the Endoclips (thermal therapy) Small clean based ulcer in duodenum x2 biliary pigtail stents From review of chart, appears the biliary stents were present even in Aug 2023. Ideally, these are to be exchanged (if not removed) within 3 months but unable to corroborate this based on available records. Will request records from [facility] . -records from [facility] here. We will ask Dr. Delvalle to review in a.m. -continue Lasix 40 mg IV q.12 hours 2.Hx portal vein thrombosis - non-compliant with anticoagulation therapy in past - resolved on abd US as above 3.Hepatic encephalopathy -improved with lactulose -follow clinically 4.Pancytopenia -follow cbc -treat as indicated 5.Polysubstance abuse - intranasal use of heroin; Addiction Medicine consultated; start methadone - HBV immune from prior infection, recent HIV serology + HCV viral load negative Full code Lovenox In my clinical judgment, the patient requires continued inpatient hospitalization for the following reasons: encephalopathy Quality Stroke Does the patient have a stroke diagnosis?: No VTE Prior VTE?: Yes VTE Risk Level:: Medical - moderate - high VTE Device Contraindication: Treatment Not Indicated VTE Drug Contraindication: N/A - Med Ordered
[2024-08-06] MEDS: Furosemide 100 MG/10 ML VIAL 60 MG IVPUSH ×2 (11:04→18:03)
[2024-08-06] MEDS: Albumin Human 25 % 100 ML IV ×2 (11:10→12:04)
[2024-08-06 11:14] VITALS: BP 118/63; PULSE 80
[2024-08-06 15:48] VITALS: BP 118/73; PULSE 86; RESP 18; TEMP 37.1; O2SAT 94
[2024-08-06] MEDS: Enoxaparin Sodium 40 MG/0.4 ML SYRINGE SUBCUT (16:21)
[2024-08-06 18:05] VITALS: BP 132/82
[2024-08-06 19:21] VITALS: BP 127/66; PULSE 105; RESP 18; TEMP 36.1; O2SAT 94
[2024-08-07] VITALS (7 sets, daily range): BP systolic 110–132; BP diastolic 59–75; PULSE 77–106; RESP 16–18; TEMP 36.3–37; O2SAT 93–97
[2024-08-07 06:18] LABS: Alanine Aminotransferase 11 U/L (0-40); Albumin Level 2.9 g/dL (3.5-5.0); Alkaline Phosphatase 80 U/L (39-117); Anion Gap 14 (12-20); Aspartate Amino Transferase 21 U/L (5-37); Basophils Percent Auto 1.5 % (0-2); Bilirubin Total 0.9 mg/dL (0.0-1.0); Blood Urea Nitrogen 7 mg/dL (9-16); Calcium 8.1 mg/dL (8.4-10.2); Carbon Dioxide 32 mmol/L (22-29); Chloride 98 mmol/L (96-108); Creatinine Clr Calc Pharmacy 123.8; Eosinophils Absolute Auto 0.1 X10*3/uL (0.0-0.4); Estimated Glomerular Filt Rate > 60; Glucose Fasting 106 mg/dL (60-99); Hematocrit 25.3 % (42.0-52.0); Hemoglobin 7.6 g/dl (14.0-18.0); Imm Gran Abs Auto 0.01 X10*3/uL (0.00-0.03); Imm Gran Pct Auto 0.5 % (0.0-0.4); Lymphocytes Absolute Auto 0.5 X10*3/uL (1.2-4.9); Lymphocytes Percent Auto 22.7 % (20-40); Mean Corpuscular Hemoglobin 26.9 pg (27.0-33.0); Mean Corpuscular Volume 89.4 fL (80.0-98.0); Mean Platelet Volume 10.5 fL (9.4-12.4); Monocytes Absolute Auto 0.3 X10*3/uL (0.1-1.2); Monocytes Percent Auto 13.1 % (2-11); Neutrophils Absolute Auto 1.2 x10*3/uL (2.0-8.3); Neutrophils Percent Auto 58.2 % (45-73); Platelet Count 76 X10*3/uL (160-400); Potassium 3.5 mmol/L (3.3-5.1); Red Blood Count 2.83 X10*6/uL (4.60-5.80); Red Cell Distribution Width 18.2 % (11.0-16.0); Sodium 140 mmol/L (135-145)
[2024-08-07] MEDS: Lactulose 20 GM/30 ML SOLUTION PO ×2 (08:54→15:00)
[2024-08-07] MEDS: Furosemide 40 MG TABLET PO (08:54)
[2024-08-07] MEDS: Ferrous Sulfate 324 MG TABLET.DR PO (08:54)
[2024-08-07] MEDS: 0.9 % Sodium Chloride Flush 3 ML SYRINGE IVFLUSH ×3 (08:54→19:35)
[2024-08-07] MEDS: rifAXIMin 550 MG TABLET PO ×2 (08:54→19:35)
[2024-08-07] MEDS: Gabapentin 300 MG CAPSULE PO ×3 (08:54→19:34)
[2024-08-07] MEDS: methADONE HCl 20 MG/2 ML ORAL.CONC 40 MG PO (08:54)
[2024-08-07] MEDS: Spironolactone 25 MG TABLET 50 MG PO ×2 (08:54→17:13)
[2024-08-07] MEDS: Furosemide 100 MG/10 ML VIAL 60 MG IVPUSH ×2 (08:57→17:13)
--- NOTE | 2024-08-07 13:20 | MHC.CM.PN ---
EMR REVIEWED AND PER MD ROUNDS, PT WILL NEED A NEW P.T. ASSESSMENT FOR POSSIBLE REHAB DUE TO INCREASED DIFFICULTY WALKING. P.T. SAW PT AND RECOMMENDS [facility] IS ACCEPTING PENDING GUEST DOSING/AVAILABILITY. NO LOCAL FACILITIES ACCEPTING. ADDICTION MEDICINE ALERTED TO BEGIN GUEST DOSING PROCESS HE WAS STARTED ON METHADONE AT [facility]. CM WILL CONTINUE TO FOLLOW FOR ANY CHANGE TO DC PLAN/NEEDS.
--- NOTE | 2024-08-07 14:32 | MHC.RECOVRN ---
Pts referral sent to [facility]. CM aware.
--- NOTE | 2024-08-07 14:43 | P.PNIM_ITS ---
Subjective Subjective Date of Service: 08/07/24 Interval History: Fair response to Lasix. Notes difficulty with ambulation Review of Systems Denies chest pain Denies shortness of breath Denies nausea vomiting diarrhea Denies fever chills Physical Exam 2 Vital Signs: Vital Signs: Last Vital Signs Temp 98.6 F 08/07/24 08:15 Pulse 80 08/07/24 10:49 Resp 18 08/07/24 08:15 BP 119/68 08/07/24 13:21 Pulse Ox 93 08/07/24 08:15 O2 Del Method Room Air 08/07/24 08:15 O2 Flow Rate 4 08/03/24 14:13 BMI result Body Mass Index 41.4 Const: Other: Awake alert uncomfortable appearing Resp: Other: Clear to auscultation bilaterally diminished at bases Cardio: Other: Tachycardic; no S4; positive S1-S2; no S3 murmurs rubs or gallops GI: Other: Distended and firm with palpable fluid wave. Bowel sounds quiet Extrem: Other: See ER admitting pictures Objective Data Active Medications Acetaminophen (Acetaminophen 325 Mg Tablet) 650 mg PO Q6H PRN PRN Reason: Pain, Mild 1-3,fever,headache Last Admin: 08/01/24 19:56 Dose: 650 mg Documented By: ELSY Calcium Carbonate (Calcium Carbonate 750 Mg Tab.Chew) 750 mg PO Q4H PRN PRN Reason: Heartburn Enoxaparin Sodium (Enoxaparin Sodium 40 Mg/0.4 Ml Syringe) 40 mg SUBCUT Q24H [facility] Last Admin: 08/06/24 16:21 Dose: 40 mg Documented By: IRASEMA Ferrous Sulfate (Ferrous Sulfate 324 Mg Tablet.Dr) 324 mg PO DAILY [facility] Last Admin: 08/07/24 08:54 Dose: 324 mg Documented By: SERENITY Furosemide (Furosemide 40 Mg Tablet) 40 mg PO DAILY [facility]; Protocol Last Admin: 08/07/24 08:54 Dose: 40 mg Documented By: SERENITY Furosemide (Furosemide 100 Mg/10 Ml Vial) 60 mg IVPUSH BID@0900,1800 [facility]; Protocol Last Admin: 08/07/24 08:57 Dose: 60 mg Documented By: SERENITY Gabapentin (Gabapentin 300 Mg Capsule) 300 mg PO TID [facility] Last Admin: 08/07/24 08:54 Dose: 300 mg Documented By: SERENITY Lactulose (Lactulose 20 Gm/30 Ml Solution) 20 gm PO TID [facility] Last Admin: 08/07/24 08:54 Dose: 20 gm Documented By: SERENITY Magnesium Hydroxide (Milk Of Magnesia 30 Ml Oral.Susp) 30 ml PO DAILY PRN PRN Reason: Constipation Melatonin (Melatonin 3 Mg Tablet) 6 mg PO BEDTIME PRN PRN Reason: Insomnia Methadone HCl (Methadone Hcl 20 Mg/2 Ml Oral.Conc) 40 mg PO DAILY@0800 [facility] Last Admin: 08/07/24 08:54 Dose: 40 mg Documented By: SERENITY Co-signed By: MIGEL Ondansetron HCl (Ondansetron Hcl 4 Mg/2 Ml Vial) 4 mg IVPUSH Q8H PRN PRN Reason: Nausea and Vomiting Rifaximin (Rifaximin 550 Mg Tablet) 550 mg PO BID [facility] Last Admin: 08/07/24 08:54 Dose: 550 mg Documented By: SERENITY Sodium Chloride (0.9 % Sodium Chloride Flush 3 Ml Syringe) 3 ml IVFLUSH QSHIFT [facility] Last Admin: 08/07/24 08:54 Dose: 3 ml Documented By: SERENITY Spironolactone (Spironolactone 25 Mg Tablet) 50 mg PO BID@0900,1800 [facility]; Protocol Last Admin: 08/07/24 08:54 Dose: 50 mg Documented By: SERENTIY Labs 08/07/24 05:20 08/07/24 05:20 Labs: Laboratory Results - last 24 hr 08/07/24 05:20 MCV 89.4 MCH 26.9 L MCHC 30.0 L RDW 18.2 H Plt Count 76 L MPV 10.5 Immature Gran % (Auto) 0.5 H Neut % (Auto) 58.2 Lymph % (Auto) 22.7 [place] % (Auto) 13.1 H Eos % (Auto) 4.0 Baso % (Auto) 1.5 Lymph # (Auto) 0.[address] [place] # (Auto) 0.3 Eos # (Auto) 0.1 Baso # (Auto) 0.0 Abs Immat Gran (auto) 0.01 Absolute Neuts (auto) 1.2 L Absolute Nucleated RBC 0.000 Nucleated RBC % (auto) 0.0 Anion Gap 14 Estim Creat Clear Calc 123.8 Estimated GFR > 60 Fasting Glucose 106 H Calcium 8.1 L Total Bilirubin 0.9 AST 21 ALT 11 Alkaline Phosphatase 80 Total Protein 6.0 L Albumin 2.9 L Assessment and Plan (1) Ascites: Status: Acute (2) HTN (hypertension): Status: Acute Plan 69yo M with decompensated HCV/EtOH cirrhosis, hx variceal bleeding s/p TIPS, polysubstance abuse presenting with worsening BLE swelling/pain, unable to walk; noncompliant with diuretics 1.Decompensated HCV/EtOH cirrhosis with ascites/edema - GI consulted, abd US with Dopplers with patent portal + splenic veins; doubt cholecystitis as he is nontender - paracentesis with removal of 1400 mL 08/01; SAAG 2 consistent with portal hypertension - IV furosemide, PO spironolactone; Small varices Portal hypertensive gastropathy x2 Endoclips present in the duodenum from a previous procedure Oozing from 1 of the Endoclips (thermal therapy) Small clean based ulcer in duodenum x2 biliary pigtail stents From review of chart, appears the biliary stents were present even in Aug 2023. Ideally, these are to be exchanged (if not removed) within 3 months but unable to corroborate this based on available records. Will request records from [facility] . -records from [facility] here. -continue Lasix 40 mg IV q.12 hours 2.Hx portal vein thrombosis - non-compliant with anticoagulation therapy in past - resolved on abd US as above 3.Hepatic encephalopathy -improved with lactulose -follow clinically 4.Pancytopenia -follow cbc -treat as indicated 5.Polysubstance abuse - intranasal use of heroin; Addiction Medicine consultated; start methadone - HBV immune from prior infection, recent HIV serology + HCV viral load negative Full code Lovenox In my clinical judgment, the patient requires continued inpatient hospitalization for the following reasons: placement Quality Stroke Does the patient have a stroke diagnosis?: No VTE Prior VTE?: Yes VTE Risk Level:: Medical - moderate - high VTE Device Contraindication: Treatment Not Indicated VTE Drug Contraindication: N/A - Med Ordered
[2024-08-07] MEDS: Enoxaparin Sodium 40 MG/0.4 ML SYRINGE SUBCUT (15:00)
--- NOTE | 2024-08-07 16:11 | MHC.RECOVRN ---
Maryann from [employer] called t/w to ask about pts discharge date. Discussed with CM, plan for CM to call Maryann at [phone] to answer questions.
[2024-08-08 06:27] LABS: Basophils Percent Auto 1.8 % (0-2); Eosinophils Absolute Auto 0.1 X10*3/uL (0.0-0.4); Eosinophils Percent Auto 4.1 % (0-4); Hemoglobin 8.3 g/dl (14.0-18.0); Lymphocytes Absolute Auto 0.6 X10*3/uL (1.2-4.9); Lymphocytes Percent Auto 24.9 % (20-40); Mean Corpuscular HGB Conc 30.7 g/dl (31.0-36.0); Mean Corpuscular Hemoglobin 27.1 pg (27.0-33.0); Mean Corpuscular Volume 88.2 fL (80.0-98.0); Mean Platelet Volume 10.8 fL (9.4-12.4); Monocytes Absolute Auto 0.3 X10*3/uL (0.1-1.2); Monocytes Percent Auto 12.2 % (2-11); Neutrophils Absolute Auto 1.3 x10*3/uL (2.0-8.3); Platelet Count 81 X10*3/uL (160-400); Red Blood Count 3.06 X10*6/uL (4.60-5.80); Red Cell Distribution Width 18.3 % (11.0-16.0); White Blood Count 2.2 X10*3/uL (4.8-10.8)
[2024-08-08 06:42] LABS: Alanine Aminotransferase 9 U/L (0-40); Alkaline Phosphatase 89 U/L (39-117); Anion Gap 12 (12-20); Aspartate Amino Transferase 23 U/L (5-37); Bilirubin Total 0.8 mg/dL (0.0-1.0); Blood Urea Nitrogen 8 mg/dL (9-16); Calcium 8.5 mg/dL (8.4-10.2); Carbon Dioxide 33 mmol/L (22-29); Chloride 97 mmol/L (96-108); Creatinine Clr Calc Pharmacy 105.6; Estimated Glomerular Filt Rate > 60; Glucose Fasting 183 mg/dL (60-99); Potassium 3.6 mmol/L (3.3-5.1); Sodium 138 mmol/L (135-145); Total Protein 6.6 g/dL (6.5-8.0)
[2024-08-08 07:58] VITALS: BP 130/82; PULSE 106; RESP 18; TEMP 36.5; O2SAT 93
[2024-08-08] MEDS: Furosemide 100 MG/10 ML VIAL 60 MG IVPUSH (08:52)
[2024-08-08] MEDS: rifAXIMin 550 MG TABLET PO ×2 (08:53→19:40)
[2024-08-08] MEDS: Ferrous Sulfate 324 MG TABLET.DR PO (08:53)
[2024-08-08] MEDS: Spironolactone 25 MG TABLET 50 MG PO ×2 (08:53→18:23)
[2024-08-08] MEDS: methADONE HCl 20 MG/2 ML ORAL.CONC 40 MG PO (08:53)
[2024-08-08] MEDS: Lactulose 20 GM/30 ML SOLUTION PO ×2 (08:53→15:15)
[2024-08-08] MEDS: 0.9 % Sodium Chloride Flush 3 ML SYRINGE IVFLUSH ×2 (08:53→15:16)
[2024-08-08] MEDS: Gabapentin 300 MG CAPSULE PO ×3 (08:53→19:40)
[2024-08-08 12:01] VITALS: BP 130/82; PULSE 106; O2SAT 93
--- NOTE | 2024-08-08 12:18 | P.DS_ITS ---
DS: Providers Provider Date of Service: 08/08/24 Date of admission: 07/30/24 15:49 Date of discharge: 08/08/24 Primary care physician: Maria Dolores Hooper MD Consults: 07/30/24 15:52 Addiction Medicine Routine Consulting Provider: Addiction Covering Reason for consultation: PSA Has provider been notified: No 07/31/24 08:45 Consult to Gastroenterology Routine Consulting Provider: [facility] Gastroenterology Services Reason for consultation: decomp cir DS: Diagnosis Discharge Diagnosis (1) Ascites: Status: Acute (2) HTN (hypertension): Status: Acute DS: Summary Hospital Course Hospital Course: From the history and physical by the admitting hospitalist, Hao Castillo DO, 07/30/24: 68yo M with 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, ongoing polysubstance abuse, presented with severe leg edema causing difficulty ambulating, likely due to decompensated cirrhosis and chronic venous stasis, patient treated with IV Lasix and spironolactone with good affect in past however extremely noncompliant with therapies. States he has not taken his meds in ?long time?. He also states that he still drinks 1-2 beers a day and snorts heroin on a regular basis. He does not take methadone from a clinic however states he takes it periodically. At this time he will be admitted with decompensated cirrhosis and bilateral leg edema 69yo M with decompensated HCV/EtOH cirrhosis, hx variceal bleeding s/p TIPS, and polysubstance abuse presenting with worsening BLE swelling/pain, inability to walk; noncompliant with diuretic. Admitted to the medical-surgical unit. Hospital course by problem: decompensated HCV/EtOH cirrhosis with ascites/edema - GI consulted, abd US with Dopplers with patent portal + splenic veins; doubt cholecystitis as he is nontender - paracentesis with removal of 1400 mL 08/01; SAAG 2 consistent with portal hypertension - IV furosemide, PO spironolactone; discharged on PO furosemide and spironolactone and should repeat CMP in 1-2 weeks - needs close GI follow-up as outpt with [facility] GI - EGD done 08/[address] Valadez showed: Small varices Portal hypertensive gastropathy x2 Endoclips present in the duodenum from a previous procedure Oozing from 1 of the Endoclips (thermal therapy) Small clean based ulcer in duodenum x2 biliary pigtail stents From review of chart, appears the biliary stents were present even in Aug 2023. Ideally, these are to be exchanged (if not removed) within 3 months but unable to corroborate this based on available records. He thinks they are close to 5 yr old. Will request records from [facility] and I told pt he needs to f/u with them to address the stents. hx portal vein thrombosis - non-compliant with anticoagulation therapy in past - resolved on abd US as above hepatic encephalopathy - started lactulose 08/03, started rifaximin 08/04, having 2 BMs/d, will need to f/u with GI pancytopenia due to cirrhosis - monitor counts, transfused 1u pRBCs 08/02 with appropriate response; repeat CBCd in 1-2 wk iron defiency anemia - started repletion neuropathic pain - gabapentin polysubstance abuse - most concerningly, intranasal use of heroin; Addiction Medicine consultated; started methadone - HBV immune from prior infection, recent HIV serology + HCV viral load negative Initial discharge was held as patient's lower extremities were still too painful for him to ambulate. He was diuresed successfully and now is medically acceptable for discharge to rehab. His stay is anticipated to be less than 30 days Time Attestation Discharge Coordination Time (in mins): 35 Quality: Safe Use of Opioids Does Pt have an Active Cancer Diagnosis on the Problem List?: No Quality: Stroke Does the patient have a stroke diagnosis?: No Physical Exam Vital Signs: Vital Signs: Last Vital Signs Temp 97.7 F 08/08/24 07:58 Pulse 106 H 08/08/24 12:01 Resp 18 08/08/24 07:58 BP 130/82 08/08/24 12:01 Pulse Ox 93 08/08/24 12:01 O2 Del Method Room Air 08/08/24 07:58 O2 Flow Rate 4 08/03/24 14:13 BMI result Body Mass Index 41.4 Const: Other: Awake alert uncomfortable appearing Resp: Other: Clear to auscultation bilaterally diminished at bases Cardio: Other: Tachycardic; no S4; positive S1-S2; no S3 murmurs rubs or gallops GI: Other: Distended and firm with palpable fluid wave. Bowel sounds quiet Extrem: Other: Markedly improved; circumference decreased now with just tiny changes consistent with chronic venous stasis disease DS: Data Data Completed and Pending Completed studies during hospitalization [Text1]: Procedures Detoxification Services for Substance Abuse Treatment (10/28/23) Insertion of Endotracheal Airway into Trachea, Via Natural or Artificial Opening (08/08/23) Insertion of Infusion Device into Lower Vein, Percutaneous Approach (08/08/23) Insertion of Infusion Device into Upper Vein, Percutaneous Approach (08/08/23) Introduction of Mineral-based Topical Hemostatic Agent into Upper GI, Via Natural or Artificial Opening Endoscopic, [employer] 6 (08/08/23) Introduction of Vasopressor into Central Vein, Percutaneous Approach (08/08/23) Respiratory Ventilation, 24-96 Consecutive Hours (08/08/23) Transfusion of Nonautologous Platelets into Peripheral Vein, Percutaneous Approach (08/08/23) Labs on day of discharge: Laboratory Results - last 24 hr 08/08/24 05:58 WBC 2.2 L RBC 3.06 L Hgb 8.3 L Hct 27.0 L MCV 88.2 MCH 27.1 MCHC 30.7 L RDW 18.3 H Plt Count 81 L MPV 10.8 Immature Gran % (Auto) 0.0 Neut % (Auto) 57.0 Lymph % (Auto) 24.9 [place] % (Auto) 12.2 H Eos % (Auto) 4.1 H Baso % (Auto) 1.8 Lymph # (Auto) 0.6 L [place] # (Auto) 0.3 Eos # (Auto) 0.1 Baso # (Auto) 0.0 Abs Immat Gran (auto) 0.00 Absolute Neuts (auto) 1.3 L Absolute Nucleated RBC 0.000 Nucleated RBC % (auto) 0.0 Sodium 138 Potassium 3.6 Chloride 97 Carbon Dioxide 33 H Anion Gap 12 BUN 8 L Creatinine 0.75 Estim Creat Clear Calc 105.6 Estimated GFR > 60 Fasting Glucose 183 H Calcium 8.5 Total Bilirubin 0.8 AST 23 ALT 9 Alkaline Phosphatase 89 Total Protein 6.6 Albumin 3.0 L Discharge Plan Discharge Anticipated Discharge Date/Time: 08/03/24 18:00 Patient Disposition: Xfer SNF Discharge Diagnosis: cirrhosis with ascites peripheral edema pancytopenia hepatic encephalopthy substance abuse Referrals: [facility] [Outside] - 1 Week (TRANSFER FOR SHORT TERM REHAB) Maria Dolores Mcduffie MD [Primary Care Provider] - 02/21/25 1:00 pm (A follow up appointment is scheduled. If you can not make this appointment call the office to reschedule ) Brenda Valadez MD [Physician] - 2 Weeks Discharge Medications: New gabapentin 300 mg Capsule 300 mg PO TID Qty: 90 0RF methadone [Methadose] 10 mg/mL Concentrate 40 mg PO DAILY@0800 Qty: 1 0RF Rx Instructions: Partial Fill upon patient request. ferrous sulfate 324 mg (65 mg iron) Tablet,Delayed Release (Dr/Ec) 324 mg PO DAILY Qty: 30 0RF furosemide 40 mg tablet 40 mg PO DAILY Qty: 30 0RF spironolactone 50 mg tablet 50 mg PO DAILY Qty: 30 0RF Xifaxan 550 mg Tablet 550 mg PO BID Qty: 60 0RF lactulose 20 gram/30 mL Solution 20 g PO TID Qty: 1800 0RF Discharge Orders: Discharge Order (Routine); Ordered 08/08/24 Ordered By: Hao Castillo Diet: Low salt diet Activity on Discharge: As tolerated Stand Alone Forms: Patient Portal Discharge page Print Language: Yakut Care Plan Goals: liver health Health Concerns: cirrhosis with ascites peripheral edema pancytopenia hepatic encephalopthy substance abuse Plan of Treatment: home with VNA services less than 2000 mg/d of sodium take spironolactone 50 mg daily PLUS furosemide 40 mg daily recheck labs in 1-2 weeks [CBCd, CMP, magnesium] take iron as prescribed take lactulose 30 mL twice daily plus rifaximin 550 mg twice daily take gabapentin for neuropathic pain methadone clinic referral avoid substance abuse Please follow up with your primary care doctor within 1 week. Return to the hospital if you experience recurrent or worsening symptoms. Assessment: See Discharge Summary.
--- NOTE | 2024-08-08 12:38 | MHC.CM.PN ---
DP: PT HAS BEEN MEDICALLY CLEARED FOR DC TO STR AT [facility]. CENTER HAS OBTAINED INSURANCE AUTH AND GUEST DOSING HAS BEEN APPROVED BY [employer]. BLS TRANSPORT BOOKED FOR 5 PM VIA [facility]. [facility] AUTH FOR TRANSPORT OBTAINED, BOOKING ID # [id number] RN/ NOTIFIED. LAST DOSE LETTER PROVIDED VIA [facility] AND TO BE SENT WITH PT. FINAL IMM DELIVERED.
[2024-08-08] MEDS: Enoxaparin Sodium 40 MG/0.4 ML SYRINGE SUBCUT (15:15)
[2024-08-08 16:24] VITALS: BP 120/83; PULSE 109; RESP 18; TEMP 36.3; O2SAT 94
[2024-08-08 19:17] VITALS: BP 132/69; PULSE 105; RESP 18; TEMP 37.2; O2SAT 95
[2024-08-09 03:23] VITALS: BP 104/62; PULSE 79; RESP 19; TEMP 36.4; O2SAT 94
[2024-08-09 07:20] VITALS: BP 121/61; PULSE 80; RESP 18; TEMP 36.9; O2SAT 92
[2024-08-09] MEDS: methADONE HCl 20 MG/2 ML ORAL.CONC 40 MG PO (08:49)
[2024-08-09] MEDS: Gabapentin 300 MG CAPSULE PO (08:50)
[2024-08-09] MEDS: Spironolactone 25 MG TABLET 50 MG PO (08:50)
[2024-08-09] MEDS: rifAXIMin 550 MG TABLET PO (08:50)
[2024-08-09] MEDS: Ferrous Sulfate 324 MG TABLET.DR PO (08:50)
--- NOTE | 2024-08-09 10:41 | HO.PM.IMPN ---
Subjective Subjective Date of Service: 08/09/24 Interval History: Fair response to Lasix. Notes difficulty with ambulation Review of Systems Denies chest pain Denies shortness of breath Denies nausea vomiting diarrhea Denies fever chills Physical Exam Vital Signs: Vital Signs: Last Vital Signs Temp 98.4 F 08/09/24 07:20 Pulse 80 08/09/24 07:20 Resp 18 08/09/24 07:20 BP 121/61 08/09/24 07:20 Pulse Ox 92 08/09/24 07:20 O2 Del Method Room Air 08/09/24 07:20 O2 Flow Rate 4 08/03/24 14:13 BMI result Body Mass Index 41.4 Const: Other: Awake alert uncomfortable appearing Resp: Other: Clear to auscultation bilaterally diminished at bases Cardio: Other: Tachycardic; no S4; positive S1-S2; no S3 murmurs rubs or gallops GI: Other: Distended and firm with palpable fluid wave. Bowel sounds quiet Extrem: Other: Markedly improved; circumference decreased now with just tiny changes consistent with chronic venous stasis disease Objective Data Active Medications Acetaminophen (Acetaminophen 325 Mg Tablet) 650 mg PO Q6H PRN PRN Reason: Pain, Mild 1-3,fever,headache Last Admin: 08/01/24 19:56 Dose: 650 mg Documented By: ELSY Calcium Carbonate (Calcium Carbonate 750 Mg Tab.Chew) 750 mg PO Q4H PRN PRN Reason: Heartburn Enoxaparin Sodium (Enoxaparin Sodium 40 Mg/0.4 Ml Syringe) 40 mg SUBCUT Q24H [facility] Last Admin: 08/08/24 15:15 Dose: 40 mg Documented By: SERENITY Ferrous Sulfate (Ferrous Sulfate 324 Mg Tablet.) 324 mg PO DAILY [facility] Last Admin: 08/09/24 08:50 Dose: 324 mg Documented By: SERENITY Furosemide (Furosemide 100 Mg/10 Ml Vial) 60 mg IVPUSH BID@0900,1800 [facility]; Protocol Last Admin: 08/09/24 08:50 Dose: Not Given Documented By: SERENITY Non-Admin Reason: no iv access Gabapentin (Gabapentin 300 Mg Capsule) 300 mg PO TID [facility] Last Admin: 08/09/24 08:50 Dose: 300 mg Documented By: SERENITY Lactulose (Lactulose 20 Gm/30 Ml Solution) 20 gm PO TID [facility] Last Admin: 08/09/24 08:52 Dose: Not Given Documented By: SERENITY Non-Admin Reason: Patient Refused Magnesium Hydroxide (Milk Of Magnesia 30 Ml Oral.Susp) 30 ml PO DAILY PRN PRN Reason: Constipation Melatonin (Melatonin 3 Mg Tablet) 6 mg PO BEDTIME PRN PRN Reason: Insomnia Methadone HCl (Methadone Hcl 20 Mg/2 Ml Oral.Conc) 40 mg PO DAILY@0800 [facility] Last Admin: 08/09/24 08:49 Dose: 40 mg Documented By: SERENITY Co-signed By: PATRIC Ondansetron HCl (Ondansetron Hcl 4 Mg/2 Ml Vial) 4 mg IVPUSH Q8H PRN PRN Reason: Nausea and Vomiting Rifaximin (Rifaximin 550 Mg Tablet) 550 mg PO BID [facility] Last Admin: 08/09/24 08:50 Dose: 550 mg Documented By: SERENITY Sodium Chloride (0.9 % Sodium Chloride Flush 3 Ml Syringe) 3 ml IVFLUSH QSHIFT [facility] Last Admin: 08/09/24 08:49 Dose: Not Given Documented By: SERENITY Non-Admin Reason: no iv access Spironolactone (Spironolactone 25 Mg Tablet) 50 mg PO BID@0900,1800 [facility]; Protocol Last Admin: 08/09/24 08:50 Dose: 50 mg Documented By: SERENITY Labs 08/08/24 05:58 08/08/24 05:58 Assessment and Plan (1) Cirrhosis: Status: Acute (2) Edema: Status: Acute Plan 69yo M with decompensated HCV/EtOH cirrhosis, hx variceal bleeding s/p TIPS, polysubstance abuse presenting with worsening BLE swelling/pain, unable to walk; noncompliant with diuretics 1.Decompensated HCV/EtOH cirrhosis with ascites/edema - GI consulted, abd US with Dopplers with patent portal + splenic veins; doubt cholecystitis as he is nontender - paracentesis with removal of 1400 mL 08/01; SAAG 2 consistent with portal hypertension - IV furosemide, PO spironolactone; Small varices Portal hypertensive gastropathy x2 Endoclips present in the duodenum from a previous procedure Oozing from 1 of the Endoclips (thermal therapy) Small clean based ulcer in duodenum x2 biliary pigtail stents From review of chart, appears the biliary stents were present even in Aug 2023. Ideally, these are to be exchanged (if not removed) within 3 months but unable to corroborate this based on available records. Will request records from [facility] . -records from [facility] here. -continue Lasix 40 mg IV q.12 hours 2.Hx portal vein thrombosis - non-compliant with anticoagulation therapy in past - resolved on abd US as above 3.Hepatic encephalopathy -improved with lactulose -follow clinically 4.Pancytopenia -follow cbc -treat as indicated 5.Polysubstance abuse - intranasal use of heroin; Addiction Medicine consultated; start methadone - HBV immune from prior infection, recent HIV serology + HCV viral load negative Full code Lovenox Transfer to rehab today Quality Stroke Does the patient have a stroke diagnosis?: No VTE Prior VTE?: Yes VTE Risk Level:: Medical - moderate - high VTE Device Contraindication: Treatment Not Indicated VTE Drug Contraindication: N/A - Med Ordered
--- NOTE | 2024-08-09 13:40 | MHC.CM.PN ---
DP: PT DID NOT WANT TO DC 2/4 TO SNF PLANNED PT HAD SECOND THOUGHTS. THIS CM SPOKE WITH PT, OFFERED ENCOURAGEMENT AND PT HAS NOW AGAIN AGREED TO GO TO [facility]. BLS TRANSPORT BOOKED FOR 10 AM [facility]IA [facility]. RN/MD UPDATED. [facility] AUTH RE-OBTAINED FOR TRANSPORT. CENTER AWARE OF PLAN
== END 2024-08-09 10:41 | disposition skilled nursing facility (03) | DRG 433 ==
LOC: HO.ED 14:45 → HO.EDOVER 16:15 → HO.S3 07-31 15:01
PROVIDERS: Family Medicine; Internal Medicine; Physician Assistant Surgical; Admitting Provider Hospitalist; Emergency Provider Emergency Medicine; PCP Internal Medicine; Visit Provider Hospitalist
PROC: 0DJ08ZZ Inspection of Upper Intestinal Tract, Via Natural or Artificial Opening Endoscopic (ICD-10-PCS; CPT 43235; principal; 2024-08-03 14:30)
DX: K70.31 Alcoholic cirrhosis of liver with ascites (principal); D61.818 Other pancytopenia; F11.20 Opioid dependence, uncomplicated; Z68.41 Body mass index [BMI] 40.0-44.9, adult; K76.6 Portal hypertension; I85.10 Secondary esophageal varices without bleeding; Z59.01 Sheltered homelessness; D50.9 Iron deficiency anemia, unspecified; Z86.19 Personal history of other infectious and parasitic diseases; K76.82 Hepatic encephalopathy; K31.89 Other diseases of stomach and duodenum; F17.210 Nicotine dependence, cigarettes, uncomplicated; K26.9 Duodenal ulcer, unspecified as acute or chronic, without hemorrhage or perforation; F10.90 Alcohol use, unspecified, uncomplicated; Z71.6 Tobacco abuse counseling; I10 Essential (primary) hypertension; G62.9 Polyneuropathy, unspecified; Z86.718 Personal history of other venous thrombosis and embolism; E66.01 Morbid (severe) obesity due to excess calories; Z71.3 Dietary counseling and surveillance; F19.10 Other psychoactive substance abuse, uncomplicated; Z91.148 Patient's other noncompliance with medication regimen for other reason; Z79.899 Other long term (current) drug therapy
CPT/HCPCS: 36415; 49083; 71045; 76705; 80048; 80053; 82042; 82140; 82607; 82728; 82746; 82945; 83540; 83605; 83690; 83735; 83880; 84157; 84484; 85025; 85027; 85610; 85730; 86850; 86900; 86901; 86923; 87040; 87070; 87073; 87205; 89051; 93005; 93970; 93975; 97116; 97162; 97530; 99285; J1650; J1940; J2003; J2704; P9016; P9047

== ENCOUNTER → 2024-07-30 08:36 | Outpatient (BNV) | payer OTHER, SELFPAY | PROVIDERS: Admitting Provider Hospitalist; Emergency Provider Emergency Medicine; PCP Internal Medicine; Visit Provider Internal Medicine | DX: R94.31 Abnormal electrocardiogram [ECG] [EKG] (principal) | CPT/HCPCS: 93010 ==

== ENCOUNTER → 2024-07-30 08:37 | Outpatient (BNV) | payer OTHER, SELFPAY | PROVIDERS: Emergency Provider Emergency Medicine; Visit Provider Radiology Diagnostic Radiology | DX: R22.43 Localized swelling, mass and lump, lower limb, bilateral (principal); M71.21 Synovial cyst of popliteal space [Baker], right knee; M71.22 Synovial cyst of popliteal space [Baker], left knee; R07.9 Chest pain, unspecified | CPT/HCPCS: 71045; 93970 ==

== ENCOUNTER → 2024-07-30 08:58 | Outpatient (BNV) | payer OTHER, SELFPAY | PROVIDERS: Emergency Provider Emergency Medicine; Visit Provider Hospitalist | DX: K70.31 Alcoholic cirrhosis of liver with ascites (principal) | CPT/HCPCS: 99232; G0180 ==

== ENCOUNTER 2024-07-30 15:49 | Outpatient (BNV) | payer OTHER, SELFPAY | END 2024-08-01 12:00 | PROVIDERS: Admitting Provider Hospitalist; Emergency Provider Emergency Medicine; PCP Internal Medicine; Visit Provider Physician Assistant Surgical | DX: R18.8 Other ascites (principal) | CPT/HCPCS: 49083 ==

== ENCOUNTER 2024-07-30 15:49 | Outpatient (BNV) | payer OTHER, SELFPAY | END 2024-07-31 18:33 | PROVIDERS: Admitting Provider Hospitalist; Emergency Provider Emergency Medicine; PCP Internal Medicine; Visit Provider Radiology Diagnostic Radiology | DX: R18.8 Other ascites (principal); K76.0 Fatty (change of) liver, not elsewhere classified; K80.00 Calculus of gallbladder with acute cholecystitis without obstruction | CPT/HCPCS: 76705; 93975 ==

== ENCOUNTER → 2024-07-30 15:49 | Outpatient (BNV) | payer OTHER, SELFPAY | PROVIDERS: Admitting Provider Hospitalist; Emergency Provider Emergency Medicine; Visit Provider Internal Medicine | DX: K70.31 Alcoholic cirrhosis of liver with ascites (principal); R60.1 Generalized edema; D61.818 Other pancytopenia; R60.0 Localized edema; F10.90 Alcohol use, unspecified, uncomplicated; I81 Portal vein thrombosis; F19.10 Other psychoactive substance abuse, uncomplicated; Z95.828 Presence of other vascular implants and grafts | CPT/HCPCS: 99223 ==

== ENCOUNTER → 2024-07-30 15:49 | Outpatient (BNV) | payer OTHER, SELFPAY | PROVIDERS: Admitting Provider Hospitalist; Emergency Provider Emergency Medicine; PCP Internal Medicine; Visit Provider Nurse Practitioner Psychiatric/Mental Health | DX: F11.90 Opioid use, unspecified, uncomplicated (principal); F10.90 Alcohol use, unspecified, uncomplicated | CPT/HCPCS: 99222; 99232 ==

== ENCOUNTER 2024-10-27 14:13 | Outpatient (AMB) | payer OTHER, SELFPAY ==
--- NOTE | 2024-10-27 14:19 | A.OFFVIS_ITS ---
Vital Signs 10/27/24 15:27 Height 5 ft 4 in Weight 211 lb 10.3 oz BMI 36.3 BP 113/72 Blood Pressure Location Lt brachial Position Sitting Pulse 129 H Intake Visit Reasons: cirrhosis Intake Note: Benton presents in the office as a follow up for Cirrhosis. CC: He states he has never had a colonoscopy and no family hx of colon cancer. He states he gets some pains due to old age but other than that he seems okay. 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 Pt is currently living in [facility] and after discharge will be living with his nephew. Currently reports no issues including abd pain, N,V,D. No blood in stool. Has been sober since last admission to hospital per his report. Current meds Furosemide 40 aldactone 50 Xifaxan 550 Collateral history was obtained from [facility] hospital records. He used to follow up with [facility] hepatology team and was on the transplant list, was removed December 2020 due to continued inappropriate substance use disorder including alcohol intranasal heroin. Pertinent history also includes history of perforated gallbladder requiring CT placement, ERCP with sphincterotomy, biliary stent and PD stent placement. There is also note of dropped gallstones in the pelvis, and patient is supposed to be on chronic ciprofloxacin prophylaxis. Houselessness is longstanding, was working with social work administrator through their hospital as well. Due for HCC screening. After being taken off transplant list, he started following with [facility] but has no showed there as of 2023 [facility] Medical History (Updated 10/27/24 @ 16:14 by Brenda Valadez MD) Portal vein thrombosis Opioid use disorder Alcohol use disorder Perforated gallbladder Cirrhosis Anemia Ascites Anasarca Pancytopenia Edema of both lower legs Elevated liver enzymes Polysubstance abuse Splenomegaly Pancytopenia Portal vein thrombosis HTN (hypertension) Surgical History (Updated 10/27/24 @ 16:12 by Brenda Valadez MD) S/P TIPS (transjugular intrahepatic portosystemic shunt) Social History Household Members: Friend(s) Household Members Other:: Patient is homeless. Stays with friends at their apartment Housing: Apartment Are you a primary urgent care to a significant other at home: No Do you presently have visiting nurse or other home services: No Unable to assess alcohol history related to: Unable to respond Alcohol intake: current Alcohol intake frequency: 3 or more drinks per day Alcohol type: beer Comment: 1:1 sitter Patient Tobacco Use Status: Current everyday Tobacco user Tobacco use type: Cigarette Cigarettes Per Day: 2 e-Cigarette/Vaping Use: Never Used Second Hand Smoke Exposure: Yes Substance Use Type: Heroin Advance Directives Date on File: 08/20/23 service: No Current occupational status: retired Current occupation: rt handed Review of Systems Const All systems reviewed & are unremarkable except as noted in HPI and below Physical Exam Vital Signs: Last Vital Signs Pulse 129 H 10/27/24 15:27 BP 113/72 10/27/24 15:27 BMI result Body Mass Index 36.3 Disheveled male, nonicteric Abdomen mildly distended Lower extremity edema ++ Alert and oriented x3, No asterixis Assessment & Plan Assessment & Plan (1) Cirrhosis: Code(s): K74.60 - Unspecified cirrhosis of liver Category: Medical Qualifiers: Hepatic cirrhosis type: alcoholic cirrhosis Ascites presence: with ascites Qualified Code(s): K70.31 - Alcoholic cirrhosis of liver with ascites (2) Esophageal and gastric varices: Code(s): I85.00 - Esophageal varices without bleeding; I86.4 - Gastric varices Category: Medical (3) Personal history of other diseases of the digestive system: Comment: History of gastric varices s/p BRTO Code(s): Z87.19 - Personal history of other diseases of the digestive system Category: Medical (4) History of hepatitis C: Code(s): Z86.19 - Personal history of other infectious and parasitic diseases Category: Medical (5) S/P TIPS (transjugular intrahepatic portosystemic shunt): Code(s): Z95.828 - Presence of other vascular implants and grafts Category: Surgical (6) Alcohol use disorder: Code(s): F10.90 - Alcohol use, unspecified, uncomplicated Category: Medical (7) Opioid use disorder: Code(s): F11.90 - Opioid use, unspecified, uncomplicated Category: Medical (8) Portal vein thrombosis: Code(s): I81 - Portal vein thrombosis Category: Medical (9) Homeless: Code(s): Z59.00 - Homelessness unspecified Category: Social Hx Plan Pt with PMH of etOH and opiate use disorder that has led to decompensated cirrhosis with ascites, variceal bleeding s/p TIPS and BRTO, PV thrombosis not on anticoagulation, listed and taken off transplant list 2020 ([facility]) due to ongoing substance use, houselessness, who is here for follow up. Currently without any active GI issues. Main concern is relapse from etOH use as soon as pt gets discharged from rehab. Pt verbally commits to staying abstinent from substance use but at the same time also declines referral to Comprehensive care center. In terms of cirrhosis care, due for HCC screening. Also overdue for CRC screening but pt wants to hold off and make sure he'll have stable living space with his nephew before booking the procedure. Plan: - CBC, CMP, INR - PETH - US Abd - CT abd/pel with IV contrast to r/o BD and PD stent migration. Will also check for intra-pelvic gallstones and if he needs cipro represcribed. - Cont lasix and aldacton as is. May need to be adjusted based on imaging and BMP - Cont rifaximin - STRONGLY advised to stay abstinent from etOH and opiate use - SW referral - [place] deferred as above Follow up 3 months Orders: Orders Complete Blood Count no Diff Today K70.31 - Alcoholic cirrhosis of liver with ascites Prothrombin Time INR Today K70.31 - Alcoholic cirrhosis of liver with ascites CT abdomen pelvis w IV con Today K70.31 - Alcoholic cirrhosis of liver with ascites, T85.520A - Displacement of bile duct prosthesis, initial encounter Comprehensive Met. Panel Today K70.31 - Alcoholic cirrhosis of liver with ascites Phosphatidylethanol, Blood Today K70.31 - Alcoholic cirrhosis of liver with ascites US abdomen complete Today K70.31 - Alcoholic cirrhosis of liver with ascites Referrals [employer] Manager Referral F10.90 - Alcohol use, unspecified, uncomplicated, F11.90 - Opioid use, unspecified, uncomplicated, K70.31 - Alcoholic cirrhosis of liver with ascites, Z59.00 - Homelessness unspecified Coding Level of Care Code Est Pt Level 5 (70566) Complex EM visit Add On G2211 Diagnoses Alcoholic cirrhosis of liver with ascites K70.31 Hepatic cirrhosis type: alcoholic cirrhosis Ascites presence: with ascites Esophageal and gastric varices I85.00; I86.4 Personal history of other diseases of the digestive system Z87.19 History of hepatitis C Z86.19 S/P TIPS (transjugular intrahepatic portosystemic shunt) Z95.828 Alcohol use disorder F10.90 Opioid use disorder F11.90 Portal vein thrombosis I81 Homeless Z59.00
--- OUTSIDE RECORDS SUMMARY | 2024-10-27 14:54 | XMS_ITS | Patient Health Record ---
Author Organization [facility] Address [address] [place], [place] [id number] Care Team Providers Care Radiologic Technician Name Role Phone No, Pcp Primary Care Provider Danish Mcadams Eugene Unavailable [phone] Dennis Deedee Unavailable Reason For Referral No Information Problems Problem Type SNOMED Code ICD Code Onset Dates Problem Status W/U Status Risk Notes Problem [id number] Anemia, unspecified type (D64.9) Active confirmed Problem Hepatic encephalopathy (52680412) Hepatic encephalopathy (K76.82) Active confirmed Encounters Encounter Location Date Provider Diagnosis [facility] [address] [place] [address] 07/04/2024 Deedee Collins Anemia, unspecified type D64.9 [...] Coverage Start Date Coverage End Date [facility] [address] [place] [address] [id number] MERLIN REZA Self - patient is the insured
--- OUTSIDE RECORDS SUMMARY | 2024-10-27 14:54 | XMS_ITS | Encounter Summary ---
Author Organization [employer] Address [address] [place] [address] Care Team Providers Care Superintendent [employer] Name Role Phone Maria Dolores Mcduffie MD Primary Care Provide r Encounter Details Date Type Department Care Team (Late st Contact Info) Description 12/03/2023 Telephone [facility] [address] [place], [place] [phone] Maria Dolores Mcduffie MD [address] [place], [place] [phone] Social History Tobacco Use Types Packs/Day Years Used Date Smoking Tobacco: Never Assessed Depression Answer Date Recorded Patient Health Questionnaire-9 Score 0 12/02/2023 Patient Health Questionnaire-9 Score 0 12/02/2023 Last PHQ-9: Questionnaire Data Not on file 0 12/02/2023 Housing Stability Answer Date Recorded What is your housing situation today? I do not have housing (Staying with others, in a hotel, in a half-way, living outside on the street, on a [...] documented as of this encounter Care Teams Superintendent [employer] Relationship Specialty Start Date End Date Maria Dolores Mcduffie MD [address] [place] [address] PCP - General Internal Medicine 12/03/23 documented as of this encounter
--- OUTSIDE RECORDS SUMMARY | 2024-10-27 14:54 | XMS_ITS | Clinical Summary ---
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 30 tablet 3 4 Active thiamine (Vitamin B-1) [...] mouth if needed each day. 4 Active spironolactone (Aldactone) 50 MG tablet Take 1 tablet by mouth Once per day. 4 Active Active Problems Problem Noted [...] Encounters Date Type Department Care Team Description 08/25/[address] [facility] MEDIC[facility] [address] [place], [place] [phone] Maria Dolores Mcduffie MD No Show 08/18/[address] [facility] MEDIC[facility] [address] [place], [place] [phone] Maria Dolores Mcduffie MD Chart Prep 08/04/[address] [facility] PEDS [address] [place], [place] [phone] Maria Dolores Mcduffie MD Transition Of Care (Tcm) (HDF scheduled. ) 08/04/[address] [facility] [address] [place], [place] [phone] Maria Dolores Mcduffie MD Call Back Request 07/30/2024 Orders Only GENERIC EXTERNAL DATA DEPARTMENT Provider, Generic External Data from Last 3 Months Immunizations Name Administration [...] with others, in a hotel, in a longterm, living outside on the street, on a [...] the past 12 months, has t he [employer], gas, oil or water company threatened to [...] 1-dose series) 2016 COVID-19 Vaccine (3 - 2023- season) 2024 12/04/2020, 11/06/2020 Influenza Vaccine (#1) 2024 , 03/05/2021, 08/12/2018, Additional history exists Pneumococcal Vaccine: 50+ Years (3 of 3 - PCV20 or PCV21) 03/29/2024 03/29/2019, 08/23/2017, 10/16/2015 Alcohol/Substance Use Screening 12/01/2024 12/02/2023 Depression Screening 12/01/2024 12/02/2023, 12/02/19 24 SDOH Screening 12/01/2024 12/02/2023 DTaP/Tdap/Td Vaccines (3 - Td or Tdap) 06/04/2029 06/04/2019, 01/09/2016 HIB Vaccines [...] on patient's age to complete this topic Procedures Procedure Name Priority Date/Time Associated Diagnosis Comments US GUIDED ABDOMINAL PARACENTESIS Routine 08/01/2024 12:00 PM EST US ABDOMEN LIMITED Routine 07/31/2024 10 :36 PM EST US DUPLEX ARTERIAL VENOUS COMP Routine 07/31/2024 6:33 PM EST VASC US LOWER EXTREMITY VENOUS DUPLEX BILATERAL Routine 07/30/2024 11:31 AM EST XR CHEST 1 VIEW Routine 07/30/2024 10:23 AM EST LACTIC ACID Routine 07/30/2024 9:24 AM EST HIGH SENSITIVITY TROPONIN I Routine 07/30/2024 8:49 AM EST B TYPE NATRIURETIC PEPTIDE (BNP) Routine 07/30/2024 8:49 AM EST LIPASE Routine 07/30/2024 8:49 AM EST COMPREHENSIVE METABOLIC PANEL Routine 07/30/2024 8:49 AM EST CBC WITH AUTO DIFFERENTIAL Routine 07/30/2024 8:49 AM EST APTT Routine 07/30/2024 8:49 AM EST PROTHROMBIN TIME-INR Routine 07/30/2024 8:49 AM EST from Last 3 Months Results * US guided abdominal paracentesis (08/01/2024 12:00 PM EST) Anatomical Region Laterality Modality Abdomen Ultrasound 08/01/2024 12:0 0 PM EST Narrative 08/09/2024 1:50 PM EST ? [facility] ?[address] ?[place] [address] ? Ultrasound Report ? Signed ? Patient: Benton Souza ?MR#: [id number] ?? 9097 ? : 1955 ?Acct:[id number] ? Age/Sex: 69 / M ?ADM Date: 07/30/24 ? Loc: HO.S3 ?367-1 ? Attending Dr: Hao Castillo DO ? Ordering Physician: Mindi Watson MD ?? Date of Service: 08/01/24 ?? Procedure(s): US paracentesis abd w/image ?? Accession Number(s): [id number] ? cc: Maria Dolores Mcduffie MD; Mindi Watson MD ? Ultrasound paracentesis ? History: Ascites. ? Risks and benefits and possible complications were discussed with the ?? patient and consent form was signed. A safe pocket of ascitic fluid was ?? identified using ultrasound guidance, and the overlying skin ??was ?? marked. The abdomen prepped and draped in sterile fashion. 1% lidocaine ?? was used as a local anesthetic. Using ultrasound guidance, a 5 fr ?? catheter was placed into the ascitic pocket. 1.4 liters of yellow fluid ?? was removed passively. The catheter was then removed. ? A few collections representative images from before and after the examination were ?? obtained. ? The procedure was performed by Giuliano Acosta PA-C and supervised by ?? Charly. ? US/US paracentesis abd w/image ?? Impression: Ultrasound-guided paracentesis as described above. ? No immediate complications ? Electronically signed by: ??Varun Parks MD ??08/09/2024 01:47 PM EST RP ? Dictated By: ?Giuliano Acosta ? Signed By: ?<Electronically signed by Giuliano Acosta in OV> ? 08/09/24 1347 ?<Electronically signed by Varun Parks MD in OV> ? 08/09/24 1349 ? DD/ 1200 ? TD/TT: 08/01/24 1300 ? Powered Bridge Specialist: ? Procedure Note Donsalvatore, Image - 08/09/2024 [place] [address] Ultrasound Report Signed Patient: Benton SouzaMR#: [id number] : 6Acct:[id number] Age/Sex: 69 / MADM Date: 07/30/24 Loc: HO.S3 367-[address]: Hao Castillo DO Ordering Physician: Mindi Watson MD Date of Service: 08/01/24 Procedure(s): US paracentesis abd w/image Accession Number(s): [id number] cc: Maria Dolores Mcduffie MD; Mindi Watson MD Ultrasound paracentesis History: Ascites. Risks and benefits and possible complications were discussed with the patient and consent form was signed. A safe pocket of ascitic fluid was identified using ultrasound guidance, and the overlying skin was marked. The abdomen prepped and draped in sterile fashion. 1% lidocaine was used as a local anesthetic. Using ultrasound guidance, a 5 fr catheter was placed into the ascitic pocket. 1.4 liters of yellow fluid was removed passively. The catheter was then removed. A few collections representative images from before and after the examination were obtained. The procedure was performed by Giuliano Acosta PA-C and supervised by Dr. Parks. US/US paracentesis abd w/image Impression: Ultrasound-guided paracentesis as described above. No immediate complications Electronically signed by: Varun Parks MD 08/09/2024 01:47 PM EST RP Dictated By: Giuliano Acosta Signed By: <Electronically signed by Giuliano Acosta in OV> 08/09/24 1347 <Electronically signed by Varun Parks MD in OV> 08/09/24 1349 DD/ 1200 TD/TT: 08/01/24 1300 Powered Bridge Specialist: us [facility] External Provider IMG US PROCEDURES Edited Result - Final * US Abdomen Limited (07/31/2024 10:36 PM EST) Anatomical Region Laterality Modality Abdomen Ultrasound 07/31/2024 10:3 6 PM EST Narrative 07/31/2024 10:38 PM EST ? [facility] ?[address] ?[place] [address] ? Ultrasound Report ? Signed ? Patient: Benton Souza ?MR#: [id number] ?? 9097 ? : 1955 ?Acct:[id number] ? Age/Sex: 69 / M ?ADM Date: 07/30/24 ? Loc: HO.S3 ?367-1 ? Attending Dr: Mindi Watson MD ? Ordering Physician: Mindi Watson MD ?? Date of Service: 07/31/24 ?? Procedure(s): US abdomen limited ?? Accession Number(s): [id number] ? cc: Maria Dolores Mcduffie MD; Mindi Watson MD ? 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 US abdomen limited ? Comparison: 10/28/2023 ? Findings: ? Fatty infiltration of the liver without focal abnormality. ?? Right lobe 10.6 cm length. Main portal vein antegrade. ?? Splenic vein is also patent. ? Cholelithiasis with gallbladder wall thickening. ?? Common duct not measured. Gallbladder wall: 3.5 mm. ?? Minimal pericholecystic fluid noted. ? Ascites noted throughout the abdomen. ? Impression: ? Cholelithiasis with gallbladder wall thickening ? Probable cholecystitis, please correlate ? Portal vein and splenic vein are patent ? Ascites ? This document has been electronically signed by: Ruddy Guevara MD on ?? 07/31/2024 22:36:13 ? Dictated By: ?Ruddy Guevara MD ? Signed By: ?<Electronically signed by Ruddy Guevara MD in OV> ? 07/31/242236 ? DD/ 35 ? TD/TT: 07/31/242235 ? Powered Bridge Specialist: ? 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 Right lobe 10.6 cm length. Main portal vein antegrade. Splenic vein is also patent. Cholelithiasis with gallbladder wall thickening. Common duct not measured. Gallbladder wall: 3.5 mm. Minimal pericholecystic fluid noted. Ascites noted throughout the abdomen. Impression: Cholelithiasis with gallbladder wall thickening Probable cholecystitis, please correlate Portal vein and splenic vein are patent Ascites This document has been electronically signed by: Ruddy Guevara MD on 07/31/2024 22:36:13 Dictated By: Ruddy Guevara MD Signed By: <Electronically signed by Ruddy Guevara MD in OV> 07/31/242236 DD/ 35 TD/TT: 07/31/242235 Powered Bridge Specialist: [facility] External Provider IMG US PROCEDURES Final Result * US DUPLEX ARTERIAL VENOUS COMP (07/31/2024 6:33 PM EST) Anatomical Region Laterality Modality Abdomen Ultrasound 07/31/2024 6:33 PM EST Narrative 08/01/2024 2:27 PM EST ? [facility] ?[address] ?[place], [place] [address] ? Ultrasound Report ? Signed ? Patient: Harley,Benton ?MR#: [id number] ?? 9097 ? : 1955 ?Acct:[id number] ? Age/Sex: 69 / M ?ADM Date: 07/30/24 ? Loc: HO.S3 ?367-1 ? Attending Dr: Mindi Watson MD ? Ordering Physician: Mindi Watson MD ?? Date of Service: 07/31/24 ?? Procedure(s): US duplex arterial venous comp ?? Accession Number(s): [id number] ? cc: Maria Dolores Mcduffie MD; Mindi Watson MD ? Please refer to combined report dictated with the Ultrasound abdomen ?? limited of same day. ? Electronically signed by: ??Jose Mae MD ??08/01/2024 02:22 PM EST RP ? Dictated By: ?Jose Mae MD ? Signed By: ?<Electronically signed by Jose Mae MD in OV> ?08/01/24 1422 ? DD/ 1833 ? TD/TT: 07/31/24 1838 ? Powered Bridge Specialist: ? Procedure Note Papito, Image - 08/01/2024 [place] [address] Ultrasound Report Signed Patient: Filippo Souza#: [id number] : 6Acct:[id number] Age/Sex: 69 / MADM Date: 07/30/24 Loc: HO.S3 367-[address]: Mindi Watson MD Ordering Physician: Mindi Watson MD Date of Service: 07/31/24 Procedure(s): US duplex arterial venous comp Accession Number(s): [id number] cc: Maria Dolores Mcduffie MD; Mindi Watson MD Please refer to combined report dictated with the Ultrasound abdomen limited of same day. Electronically signed by: Jose Mae MD 08/01/2024 02:22 PM EST RP Dictated By: Jose Mae MD Signed By: <Electronically signed by Jose Mae MD in OV> 08/01/24 1422 DD/ 1833 TD/TT: 07/31/24 1838 Powered Bridge Specialist: us [facility] External Provider IMG US PROCEDURES Final Result * VASC US Lower Extremity Venous Duplex Bilateral (07/30/2024 11:31 AM EST) 07/30/2024 11:3 1 AM EST Narrative [facility] - 07/30/2024 11:32 AM EST ? [facility] ?[address] ?[place] [address] ? Ultrasound Report ? Signed ? Patient: HarleyNathanBenton ?MR#: [id number] ?? 9097 ? : 1955 ?Acct:[id number] ? Age/Sex: 69 / M ?ADM Date: 07/30/24 ? Loc: HO.ED ? Attending Dr: ? Ordering Physician: Gabriel Whittaker MD ?? Date of Service: 07/30/24 ?? Procedure(s): US venous duplex LE BI ?? Accession Number(s): [id number] ? cc: Gabriel Whittaker MD; [facility] ? CLINICAL HISTORY: SWELLING ? Venous duplex ultrasound bilateral lower extremity ? Comparison: US/SR - US VENOUS DUPLEX LE BI - 05/10/24 13:38 EST ? Findings: ?? Technically limited study related to extent of soft tissue edema as on ?? prior. ?? Allowing for such, no apparent deep venous thrombosis on either side. ?? Similar appearing bilateral Estrada's cysts, right currently 7 x 15 x 42 mm, ?? left 10 x 21 x 62 mm, not significantly changed allowing for ?? technical/measurement variation. ?? Bilateral inguinal lymph nodes, most demonstrating prominent fatty librado ?? and thin cortices. One on the right is more hypoechoic without fatty hilum ?? at 6 x 9 x 13 mm although based on short axis measurement reactive node is ?? favored. This may have been present previously although less well ?? demonstrated. ? IMPRESSION: ?? No deep vein thrombosis evident on either side. Similar diffuse ?? subcutaneous edema. ?? Similar bilateral Estrada's cysts. ?? Bilateral inguinal lymph nodes as noted. ? This document has been electronically signed by: Errol Torrez MD on ?? 07/30/2024 11:31:04 ? Dictated By: ?Errol Torrez MD ? Signed By: ?<Electronically signed by Errol Torrez MD in OV> ? 07/30/24 1132 ? DD/ 1131 ? TD/TT: 07/30/24 1131 ? Powered Bridge Specialist: ? Procedure Note Donotuseinterpreter, Image - 07/30/[address] [address] Ultrasound Report Signed Patient: Filippo Souza#: [id number] : 6Acct:[id number] Age/Sex: 69 / MADM Date: 07/30/24 Loc: HO.ED Attending Dr: Ordering Physician: Gabriel Whittaker MD Date of Service: 07/30/24 Procedure(s): US venous duplex [facility] Accession Number(s): [id number] cc: Gabriel Whittaker MD; [facility] CLINICAL HISTORY: SWELLING Venous duplex ultrasound bilateral lower extremity Comparison: US/SR - US VENOUS DUPLEX [facility] - 05/10/24 13:38 EST Findings: Technically limited study related to extent of soft tissue edema as on prior. Allowing for such, no apparent deep venous thrombosis on either side. Similar appearing bilateral Estrada's cysts, right currently 7 x 15 x 42 mm, left 10 x 21 x 62 mm, not significantly changed allowing for technical/measurement variation. Bilateral inguinal lymph nodes, most demonstrating prominent fatty librado and thin cortices. One on the right is more hypoechoic without fatty hilum at 6 x 9 x 13 mm although based on short axis measurement reactive node is favored. This may have been present previously although less well demonstrated. IMPRESSION: No deep vein thrombosis evident on either side. Similar diffuse subcutaneous edema. Similar bilateral Estrada's cysts. Bilateral inguinal lymph nodes as noted. This document has been electronically signed by: Errol Torrez MD on 07/30/2024 11:31:04 Dictated By: Errol Torrez MD Signed By: <Electronically signed by Errol Torrez MD in OV> 07/30/24 1132 DD/ 1131 TD/TT: 07/30/24 1131 Powered Bridge Specialist: us [facility] External Provider CV VASC ULAR PROCEDURES Edited Result - Final [facility] [address] [place] [address] * XR Chest 1 View (07/30/2024 10:23 AM EST) Anatomical Region Laterality Modality Chest Radiographic Maria Esther ging 07/30/2024 10:2 3 AM EST Narrative 07/30/2024 10:25 AM EST ? [facility] ?[address] ?[place] [address] ?XRay Report ? Signed ? Patient: Harley,Benton ?MR#: [id number] ?? 9097 ? : 1955 ?Acct:[id number] ? Age/Sex: 69 / M ?ADM Date: 07/30/24 ? Loc: HO.ED ? Attending Dr: ? Ordering Physician: Gabriel Whittaker MD ?? Date of Service: 07/30/24 ?? Procedure(s): XR chest 1V ?? Accession Number(s): [id number] ? cc: Gabriel Whittaker MD; [facility] ? CLINICAL HISTORY: chest pain ? 1 view chest x-ray ? Comparison: CR/SR - XR CHEST 1V - 05/10/24 12:19 EST ? Findings: ?? Lower lung volumes. ?? Similar interstitial prominence. ?? No consolidation or effusion. ?? Borderline cardiomegaly. ?? No acute fracture. ? IMPRESSION: ?? 1. No acute findings. ? This document has been electronically signed by: Errol Torrez MD on ?? 07/30/2024 10:23:59 ? Dictated By: ?Errol Torrez MD ? Signed By: ?<Electronically signed by Errol Torrez MD in OV> ? 07/30/24 1025 ? DD/ 1023 ? TD/TT: 07/30/24 1023 ? Powered Bridge Specialist: ? Procedure Note Papito, Image - 07/30/[address] [address] XRay Report Signed Patient: Benton SouzaMR#: [id number] 9097 : 6Acct:[id number] Age/Sex: 69 / MADM Date: 07/30/24 Loc: HO.ED Attending Dr: Ordering Physician: Gabriel Whittaker MD Date of Service: 07/30/24 Procedure(s): XR chest 1V Accession Number(s): [id number] cc: Gabriel Whittaker MD; [facility] CLINICAL HISTORY: chest pain 1 view chest x-ray Comparison: CR/SR - XR CHEST 1V - 05/10/24 12:19 EST Findings: Lower lung volumes. Similar interstitial prominence. No consolidation or effusion. Borderline cardiomegaly. No acute fracture. IMPRESSION: 1. No acute findings. This document has been electronically signed by: Errol Torrez MD on 07/30/2024 10:23:59 Dictated By: Errol Torrez MD Signed By: <Electronically signed by Errol Torrez MD in OV> 07/30/24 1025 DD/ 1023 TD/TT: 07/30/24 1023 Powered Bridge Specialist: [facility] External Provider IMG XR PROCEDURES Edited Result - Final * Lactic Acid (07/30/2024 9:24 AM EST) Lactic Acid 1.5 0.5 - 2.0 mmol/L [facility] 07/30/2024 9:24 AM EST 07/30/2024 9:28 AM EST Generic External Data Provider LAB BLOOD ORDERAB LES Final Result [facility] [address] [place] [phone] * High Sensitivity Troponin I (07/30/2024 8:49 AM EST) TROPONIN I HIGH SENSITIVITY 2.7 <3.5 - 35.0 ng/L [facility] Comment:The [place] high sens itivity Troponin-I results should beused in conjunction with other diagnostic information suchas ECG, clinical observations and information, and patientsymptoms to aid in the diagnosis of PR. 07/30/2024 8:49 AM EST 07/30/2024 8:54 AM EST us Generic External Data Provider LAB BLOOD ORDERAB LES Final Result [facility] [address] [place] [address] [phone] * (ABNORMAL) CBC auto differential (07/30/2024 8:49 AM EST) White Blood Count 3.0(L) 4.8 - 10.8 X10*3/uL [facility] Red Blood Count 3.14(L) 4.60 - 5.80 X10*6/uL [facility] Hemoglobin 8.5(L) 14.0 - 18.0 g/dl [facility] Hematocrit 27.5(L) 42.0 - 52.0 % [facility] Mean Corpuscular Volume 87.6 80.0 - 98.0 fL [facility] Mean Corpuscular Hemoglobin 27.1 27.0 - 33.0 pg [facility] Mean Corpuscular HGB Conc 30.9(L) 31.0 - 36.0 g/dl [facility] Red Cell Distribution Width 18.2(H) 11.0 - 16.0 % [facility] Platelet Count 98(L) 160 - 400 X10*3/uL [facility] Mean Platelet Volume 10.8 9.4 - 12.4 fL [facility] Neutrophils Percent Auto 72.9 45 - 73 % [facility] Imm Gran Pct Auto 0.7(H) 0.0 - 0.4 % [facility] Lymphocytes Percent Auto 16.1(L) 20 - 40 % [facility] Monocytes Percent Auto 6.3 2 - 11 % [facility] Eosinophils Percent Auto 3.0 0 - 4 % [facility] Basophils Percent Auto 1.0 0 - 2 % [facility] NRBC Pct Auto 0.0 0.0 - 0.2 /100WBC [facility] Neutrophils Absolute Auto 2.2 2.0 - 8.3 x10*3/uL [facility] Imm Gran Abs Auto 0.02 0.00 - 0.03 X10*3/uL [facility] Lymphocytes Absolute Auto 0.5(L) 1.2 - 4.9 X10*3/uL [facility] Monocytes Absolute Auto 0.2 0.1 - 1.2 X10*3/uL [facility] Eosinophils Absolute Auto 0.1 0.0 - 0.4 X10*3/uL [facility] Basophils Absolute Auto 0.0 0.0 - 0.2 X10*3/uL [facility] NRBC Abs Auto 0.000 0.0 - 0.012 X10*3/uL [facility] 07/30/2024 8:49 AM EST 07/30/2024 8:54 AM EST us Generic External Data Provider LAB BLOOD ORDERAB LES Final Result Performing Organization Address [facility] Co de Phone Number [facility] [address] [place] [address] [phone] * (ABNORMAL) Partial Thromboplastin Time, Activated (APTT) (07/30/2024 8:49 AM EST) Partial Thromboplastin Time 25.1(L) 26.0 - 36.8 SEC [facility] Comment:For information rega rding the monitoring of direct thrombininhibitors, please refer to Pharmacy. 07/30/2024 8:49 AM EST 07/30/2024 8:54 AM EST us Generic External Data Provider LAB BLOOD ORDERAB LES Final Result Performing Organization Address [facility]/ZIP Co de Phone Number [facility] [address] [place] [phone] * (ABNORMAL) Prothrombin Time-INR (07/30/2024 8:49 AM EST) Pathologist [facility] Prothrombin Time 17.5(H) 10.9 - 12.4 SEC [facility] INTERNATIONAL NORM RATIO 1.5(H) 0.9 - 1.1 [facility] Comment:INTERNATIONAL NORMAL IZED RATIO (INR) REFERENCE RANGES Reference RangeFor patients not on anticoagulant therapy: 0.9 - 1.1INR ranges for oral anticoagulanttherapy:For prevention and treatment of venous thrombosis and pulmonary embolism: 2.0 - 3.0For acute myocardial infarction with aspirin therapy: 2.0 - 3.0For acute myocardial infarction without aspirin therapy: 3.0 - 4.0For patients with mechanical prosthetic heart valves: 2.5 - 3.5 07/30/2024 8:49 AM EST 07/30/2024 8:54 AM EST Generic External Data Provider LAB BLOOD ORDERAB LES Final Result [facility] [address] [place] [address] [phone] * B Type Natriuretic Peptide (BNP) (07/30/2024 8:49 AM EST) [facility] B Type Natriuretic Peptide 56 <100 pg/mL [facility] Comment:For those patients w ho are being treated with Natrecor(nesiritide, recombinant BNP), BNP testing should beperformed at least two hours post treatment in order toensure that only endogenous levels of BNP are detected. 07/30/2024 8:49 AM EST 07/30/2024 8:54 AM EST us Generic External Data Provider LAB BLOOD ORDERAB LES Final Result Performing Organization Address City/[facility]/ZIP Co de Phone Number [facility] [address] [place] [phone] * Lipase (07/30/2024 8:49 AM EST) Lipase 35 8 - 78 U/L [facility] 07/30/2024 8:49 AM EST 07/30/2024 8:54 AM EST us Generic External Data Provider LAB BLOOD ORDERAB LES Final Result [facility] [address] [place] [address] [phone] * (ABNORMAL) Comprehensive Metabolic Panel (07/30/2024 8:49 AM EST) Sodium 136 135 - 145 mmol/L [facility] Potassium 4.9 3.3 - 5.1 mmol/L [facility] Comment:Slight Hemolysis.Int erpret result with caution. Chloride 108 96 - 108 mmol/L [facility] Carbon Dioxide 22 22 - 29 mmol/L [facility] Anion Gap 11(L) 12 - 20 [facility] Urea Nitrogen (BUN) 7(L) 9 - 16 mg/dL [facility] Creatinine, Serum 0.68 0.5 - 1.4 mg/dL [facility] Creatinine Clr Calc Pharmacy 117.4 [facility] Comment:eGFR (calculated fro m the MDRD study equation) and eCrCl(calculated from the Cockcroft-Gault equation) are based ondifferent parameters and may not yield comparable results.If eCrCl result is absurd, please check patient'sheight/weight. Estimated Glomerular Filt Rate >60 [facility] Comment:Chronic Kidney Disea se: Estimated GFR < 60 mL/min/1.87y0Oceoyp Kidney Disease: Estimated GFR < 15 mL/min/1.73m2 Glucose 134(H) 60 - 115 mg/dL [facility] Calcium 7.9(L) 8.4 - 10.2 mg/dL [facility] Bilirubin, Total 1.5(H) 0.0 - 1.0 mg/dL [facility] Aspartate Amino Transferase 48(H) 5 - 37 U/L [facility] Comment:Slight Hemolysis.Int erpret result with caution. Alanine Aminotransferase 8 0 - 40 U/L [facility] Total Protein 6.5 6.5 - 8.0 g/dL [facility] Albumin Level 2.5(L) 3.5 - 5.0 g/dL [facility] Alkaline Phosphatase 87 39 - 117 U/L [facility] 07/30/2024 8:49 AM EST 07/30/2024 8:54 AM EST us Generic External Data Provider LAB BLOOD ORDERAB LES Final Result Performing Organization Address City/State/[facility] Co de Phone Number [facility] [address] [place] [phone] from Last 3 Months Insurance [facility] [address] [facility] Care Teams Cattle Examiner Relationship Specialty Start Date End Date Maria Dolores Mcduffie MD [address] [place] [phone] PCP - General Internal Medicine 12/03/23
--- OUTSIDE RECORDS SUMMARY | 2024-10-27 14:54 | XMS_ITS | Clinical Summary ---
Author Organization [facility] ity Address [address] [place] [address] Care Team Providers Care Training And Development Rep Name Role Phone Nemo Berry MD Primary Care Provider Social History Tobacco Use Types Packs/Day Years Used Date Smoking Tobacco: Never Assessed Sex and Gender Information Value Date Recorded Sex Assigned at Not on file Legal Sex Male 4:56 AM EST Gender Identity Not on file Sexual Orientation Not on file Plan of Treatment Health Maintenance Due Date Last Done Comments DTaP,Tdap,and Td Vaccines (1 - Tdap) 1975 Pneumococcal Vaccine: 50+ Ye ars (1 of 1 - PCV) 2006 Zoster Vaccines (1 of 2) 2006 COVID-19 Vaccine ( - 2023-2 5 season) 2024 Abdominal Aortic Aneurysm (A AA) Screen 07/07/2024 Cholesterol Screening (Lipid Panel) 07/07/2024 Colorectal Cancer Screening: Colonoscopy 07/07/2024 Depression Screening 07/07/2024 Falls Risk Assessment 07/07/2024 Hepatitis C Screening 07/07/2024 Social Influencers of Health Screening 07/07/2024 Influenza Vaccine (Season Ended) 2025 RSV Immunization Adult Patie nts (1 - 1-dose 75+ series) 2031 HIB [...] patient's age to complete this topic Meningococcal B Vaccine Aged Out No l onger eligible based on patient's age to complete this topic RSV Immunization Patients Un ever 20 months Aged Out No longer eligible b ased on patient's age to complete this topic Varicella Vaccines Aged Out No longer eligible based on patient's age to complete this topic Care Teams Training And Development Rep Relationship Specialty Start Date End Date Nemo Berry MD [address] [place] [address] PCP - General 08/03/23
[2024-10-27 15:27] VITALS: BP 113/72; PULSE 129; BMI 36.3
== END 2024-10-27 15:58 | disposition home or self-care (01) ==
PROVIDERS: PCP Internal Medicine; Visit Provider Internal Medicine
DX: K70.31 Alcoholic cirrhosis of liver with ascites (principal); I85.00 Esophageal varices without bleeding; I86.4 Gastric varices; Z87.19 Personal history of other diseases of the digestive system; Z86.19 Personal history of other infectious and parasitic diseases; Z95.828 Presence of other vascular implants and grafts; F10.90 Alcohol use, unspecified, uncomplicated; F11.90 Opioid use, unspecified, uncomplicated; I81 Portal vein thrombosis; Z59.00 Homelessness unspecified
CPT/HCPCS: 99214; G2211

== ENCOUNTER → 2024-10-27 14:13 | Outpatient (BNVA) | payer OTHER, SELFPAY | PROVIDERS: PCP Internal Medicine; Visit Provider Internal Medicine | DX: K70.31 Alcoholic cirrhosis of liver with ascites (principal); I85.00 Esophageal varices without bleeding; I86.4 Gastric varices; F10.90 Alcohol use, unspecified, uncomplicated; F11.90 Opioid use, unspecified, uncomplicated; I81 Portal vein thrombosis; Z87.19 Personal history of other diseases of the digestive system; Z86.19 Personal history of other infectious and parasitic diseases; Z95.828 Presence of other vascular implants and grafts; Z59.00 Homelessness unspecified | CPT/HCPCS: 99212 ==

== ENCOUNTER 2024-11-02 15:57 | Emergency (ER) | payer OTHER, SELFPAY ==
--- NOTE | ~2024-11-02 | US_ITS ---
CLINICAL HISTORY: cbd, GB, liver US abdomen limited Comparison: Ultrasound of the abdomen from 07/31/2024 Findings: Majority of the pancreas is obscured by overlying bowel gas. Aorta and IVC are obscured. Majority of the liver is obscured. Right kidney is obscured. Mild surface nodularity of the cirrhosis suggested in the partially imaged liver. No right upper quadrant ascites or right pleural effusion in the [id number]. Cholelithiasis are redemonstrated. Gallbladder wall thickening and pericholecystic fluid are concerning for cholecystitis with gallbladder wall measuring 6 mm thickness (image 20 of series 1). Imaged CBD measures at the upper limits of normal (6 mm diameter), image 29 of series 1). IMPRESSION: 1. Cholelithiasis, gallbladder wall thickening, and pericholecystic fluid, concerning for cholecystitis. 2. Imaged CBD is at the upper limits of normal. This document has been electronically signed by: Irwin Aguayo MD on 11/02/2024 22:46:05
[2024-11-02 16:04] VITALS: BP 160/90; PULSE 120; O2SAT 97
[2024-11-02 16:31] VITALS: BP 139/82; PULSE 128; RESP 20; TEMP 36.9; O2SAT 95; BMI 34.2
--- NOTE | 2024-11-02 16:42 | PC.NURSE ---
pt refused d/c vitals.
--- NOTE | 2024-11-02 17:13 | ECG_ITS ---
Test Reason : TACHYCARDIA Blood Pressure : */* mmHG Vent. Rate : 140 BPM Atrial Rate : 140 BPM P-R Int : 122 ms QRS Dur : 94 ms QT Int : 306 ms P-R-T Axes : * -60 2 degrees QTcB Int : 467 ms Sinus tachycardia Left anterior fascicular block Abnormal ECG When compared with ECG of 30-Jul-2024 08:46, Sinus rhythm has replaced Junctional rhythm Referred By: Generic ED Physician Electronically Signed By: Foreign [facility]
[2024-11-02 17:26] LABS: MANUAL DIFF FLAG NO
[2024-11-02 17:35] LABS: Basophils Percent Auto 0.9 % (0-2); Eosinophils Absolute Auto 0.1 X10*3/uL (0.0-0.4); Eosinophils Percent Auto 1.3 % (0-4); Hematocrit 40.7 % (42.0-52.0); Hemoglobin 13.9 g/dl (14.0-18.0); Imm Gran Abs Auto 0.03 X10*3/uL (0.00-0.03); Imm Gran Pct Auto 0.6 % (0.0-0.4); Lymphocytes Absolute Auto 0.4 X10*3/uL (1.2-4.9); Mean Corpuscular HGB Conc 34.2 g/dl (31.0-36.0); Mean Corpuscular Hemoglobin 30.4 pg (27.0-33.0); Mean Corpuscular Volume 89.1 fL (80.0-98.0); Mean Platelet Volume 10.2 fL (9.4-12.4); Monocytes Absolute Auto 0.3 X10*3/uL (0.1-1.2); Monocytes Percent Auto 6.6 % (2-11); Neutrophils Absolute Auto 3.8 x10*3/uL (2.0-8.3); Neutrophils Percent Auto 81.6 % (45-73); Red Blood Count 4.57 X10*6/uL (4.60-5.80); Red Cell Distribution Width 14.5 % (11.0-16.0); White Blood Count 4.7 X10*3/uL (4.8-10.8)
--- NOTE | 2024-11-02 17:37 | MHC.EDTECH ---
This pct was unable to obtain an EKG at this time because patient is too restless, ripping off the leads and thrashing around bed. RN Aware
[2024-11-02 17:54] VITALS: BP 135/80; PULSE 134; RESP 29; O2SAT 95
[2024-11-02 17:54] LABS: Platelet Count 80 X10*3/uL (160-400)
[2024-11-02] MEDS: Haloperidol Lactate 5 MG/ML VIAL IM (18:30)
[2024-11-02] MEDS: Midazolam HCl 2 MG/2 ML VIAL IM (18:30)
[2024-11-02 19:11] LABS: Amphetamine Screen Urine Not Detected (Not Detect); Barbiturates, Urine Not Detected (Not Detect); Benzodiazepines Screen Urine Not Detected (Not Detect); Buprenorphine Scr Not Detected (Not Detect); Cannabinoid Screen Urine Not Detected (Not Detect); Cocaine Screen Urine Not Detected (Not Detect); Fentanyl, urine POSITIVE (Not Detect); Methadone Screen, Urine Positive (Not Detect); Opiate Screen Urine POSITIVE (Not Detect); Oxycodone Screen Urine Not Detected (Not Detect); Phencyclidine Screen Urine Not Detected (Not Detect)
[2024-11-02 19:21] LABS: Troponin-I High Sensitivity 4.5 ng/L (<3.5-35.0)
[2024-11-02 19:22] VITALS: BP 112/72; PULSE 142; RESP 20; O2SAT 95
[2024-11-02 19:33] LABS: Alanine Aminotransferase 42 U/L (0-40); Alkaline Phosphatase 211 U/L (39-117); Anion Gap 20 (12-20); Aspartate Amino Transferase 59 U/L (5-37); Bilirubin Total 1.8 mg/dL (0.0-1.0); Blood Urea Nitrogen 11 mg/dL (9-16); Calcium 9.3 mg/dL (8.4-10.2); Carbon Dioxide 21 mmol/L (22-29); Chloride 95 mmol/L (96-108); Creatinine Clr Calc Pharmacy 80.7; Estimated Glomerular Filt Rate > 60; Ethanol 11 mg/dL; Glucose Random 391 mg/dL (60-115); Magnesium 1.6 mg/dL (1.6-2.6); Potassium 4.3 mmol/L (3.3-5.1); Sodium 132 mmol/L (135-145); Total Protein 7.9 g/dL (6.5-8.0)
[2024-11-02] MEDS: 0.9 % Sodium Chloride 1,000 ML 999 ML IV (19:37)
[2024-11-02 21:09] VITALS: BP 114/64; PULSE 107; RESP 16; O2SAT 96
[2024-11-02 22:07] LABS: Bilirubin Direct 0.7 mg/dL (0.0-0.5)
[2024-11-02 22:10] VITALS: BP 119/67; PULSE 128; RESP 18; O2SAT 94
--- OUTSIDE RECORDS SUMMARY | 2024-11-02 22:12 | XMS_ITS | Encounter Summary ---
Author Organization [employer] Address [address] [facility] [address] [place] [address] Care Team Providers Care Balance Bridge Inspector Name Role Phone Maria Dolores Mcduffie MD Primary Care Provide r Reason for Visit * Reason Comments Transition Of Care (Tcm) HDF-Scheduled ( direct) Encounter Details Date Type Department Care Team ([facility] st Contact Info) Description 11/01/2024 Patient Outreach [facility] [address] [place] [address] Maria Dolores Mcduffie MD [address] [place] [address] Transition Of Care (Tcm) (HDF-Scheduled (direct)) Social History Tobacco Use Types Packs/Day Years [...] as of this encounter Miscellaneous Notes * Significant Event - Aleta Rodriguez - 11/01/2024 3:02 PM EDT 11/01/24 1500 Hospital Discharges and Admission for [facility] Type of Visit Hospital Admission Date of Admission/Visit 07/10/24 Date of Discharge 11/02/24 Facility [facility] Diagnosis hepatic encephalopathy Disposition Discharged Home Follow-Up Actions Follow-Up Needed Provider appointment Follow-Up Outcome Booked Appointment;Spoke to Caregiver Initial Contact Date 11/01/24 Received incoming call from the Direct Hospital Line. CM Spoke with Lea ([phone]) from [facility]. Patient has been scheduled for an HDF appointment on 11/13/2024 at 1:00PM with . CM requested discharge summaries to be faxed to the Care Management Department at [phone]. CC will follow up on discharge summary following patient's discharge. Insurance verified prior to scheduling. documented in this encounter Plan of Treatment Upcoming Encounters Date Type Department Care Team (Late st Contact Info) Description 11/13/2024 1:00 PM EDT Office Visit [facility] [address] [place] [address] Maria Dolores Mcduffie MD [address] [place] [address] documented as of this encounter Visit Diagnoses Not on filedocumented in this encounter Additional Health Concerns Assessment Noted Time PHQ-9 Depression Total Score: 0 12/02/19 9:50 AM EDT documented as of this encounter Care Teams Balance Bridge Inspector Relationship Specialty Start Date End Date Maria Dolores Mcduffie MD [address] [place] [address] PCP - General Internal Medicine 12/03/23 documented as of this encounter
--- OUTSIDE RECORDS SUMMARY | 2024-11-02 22:12 | XMS_ITS | Clinical Summary ---
Author Organization [employer] Address [address] [place] [address] Care Team Providers Care Wood Router Hand Name Role Phone Maria Dolores Mcduffie MD [...] Encounters Date Type Department Care Team Description 11/01/2024 Patient Outreach [facility] [address] [place], [place] [phone] Maria Dolores Mcduffie MD Transition Of Care (Tcm) (HDF-Scheduled (direct)) 08/25/2024 Telephone [facility] [address], [place] [phone] Maria Dolores Mcduffie MD No Show 08/18/2024 Telephone [facility] [address] [place] [address] Maria Dolores Mcduffie MD Chart Prep from Last 3 Months Immunizations Name Administration [...] with others, in a hotel, in a penitentiary, living outside on the street, on a [...] Mass Index - - Plan of Treatment Upcoming Encounters Date Type Department Care Team (Late st Contact Info) Description 11/13/2024 1:00 PM EDT Office Visit [facility] [address] [place] [address] Maria Dolores Mcduffie MD [address] [place] [address] Health Maintenance Due Date Last Done Comments [...] (#1) 2024 , 08/12/2018, 03/03/2017 Pneumococcal Vaccine: 50+ Years (3 of 3 [...] patient's age to complete this topic Insurance [facility] (HMO D-SNP) [place] [id number] Care Teams Wood Router Hand Relationship Specialty Start Date End Date Maria Dolores Mcduffie MD [address] [place] [address] PCP - General Internal Medicine 12/03/23
--- OUTSIDE RECORDS SUMMARY | 2024-11-02 22:12 | XMS_ITS ---
Author Organization [facility] Care Team Providers Care Agriculture Teacher Name Role Phone Asuncion Mejía Unavailable Unavail able Suraj Quinteros Unavailable Unavail able Misael Hurt Unavailable Unavailable Allergies and adverse reactions No Known Allergies Care Team Name Role Address Phone Organization Dates Misael Hurt PCP [address] [place] [address], [facility] (Office): [facility] 10/05/2023 - 10/22/2023 Asuncion Mejía Attending Physician [address] [place] [address], [facility] (Office): [facility] 10/05/2023 - 10/22/2023 Suraj Quinteros Attending Physician [address] [place] [address], [facility] (Office): [facility] 10/05/2023 - 10/22/2023 Immunizations Immunization Status Vaccine Details Vaccine Code CodeSystem Date Notes TB 2 Step Mantoux Skin Test completed tuberculin skin test; unspecified formulation lotNumber: [id number] expiry: 11/19/2026 Mfg: [employer] Given 0.1 ml Right Forearm intradermally Step 1 of Multi-step with next step required 98 CVX created date: 10/13/2023 consent date: 10/13/2023 administere d date: 10/13/2023 TB 2 Step Mantoux Skin Test completed tuberculin skin test; unspecified formulation lotNumber: [id number] expiry: 11/19/2026 Mfg: [employer]of[employer] pasteur [employer] Given 0.1 ml Right Forearm intradermally Step 1 of Multi-step with next step required 98 CVX created date: 10/06/2023 consent date: 10/06/2023 administere d date: 10/06/2023 SARS-COV-2 (COVID-19) completed SARS-COV-2 (COVID-19) vaccine, mRNA, spike protein, LNP, preservative free, 100 mcg/0.5mL dose or 50 mcg/0.25mL dose Step 2 of Multi-step with next step required 207 CVX created date: 10/11/2023 administere d date: 12/04/2020 SARS-COV-2 (COVID-19) completed SARS-COV-2 (COVID-19) vaccine, mRNA, spike protein, LNP, preservative free, 100 mcg/0.5mL dose or 50 mcg/0.25mL dose Step 1 of Multi-step with next step required 207 CVX created date: 10/11/2023 administere d date: 11/06/2020 PCV 20 cancelled Pneumococcal conjugate vaccine 20-valent (PCV20), polysaccharide [id number] conjugate, adjuvant, preservative free 216 CVX created date: 10/11/2023 consent date: 10/11/2023 Hepatitis A - Adult dose cancelled hepatitis A vaccine, adult dosage 52 CVX created date: 10/11/2023 consent date: 10/11/2023 Influenza FLUAD Quadrivalent Vaccine Adjuvanted cancelled Influenza, high-dose, split virus, quadrivalent, injectable, preservative free 197 CVX created date: 10/11/2023 consent date: 10/11/2023 Mental Status Section Date Assessment Total Score Description 10/22/2023 BIMS 13 cognitively int act CAM 0 No delirium ind icated PHQ-9 00 10/12/2023 BIMS 11 moderate cognit brian impairment CAM 0 No delirium ind icated PHQ-9 00 Problems Problem # Description Date of onset Resolved Date Code CodeSystem Concern Status 1 ALCOHOL ABUSE, UNCOMPLICATED 10/05/[address] active 2 ALCOHOLIC CIRRHOSIS OF LIVER WITHOUT ASCITES 10/05/[address] active 3 EDEMA, UNSPECIFIED 10/05/2023 902665248 SNOMED C T active 4 ESOPHAGEAL VARICES WITHOUT BLEEDING 10/05/[address] active 5 ESSENTIAL (PRIMARY) HYPERTENSION 10/05/[address] active 6 GASTRO-ESOPHAGEAL REFLUX DISEASE WITHOUT ESOPHAGITIS 10/05/[address] active 7 GASTROINTESTINAL HEMORRHAGE, UNSPECIFIED 10/05/[address] active 8 OTHER PANCYTOPENIA 10/05/2023 534082692 SNOMED C T active 9 OTHER PSYCHOACTIVE SUBSTANCE ABUSE, UNCOMPLICATED 10/05/[address] active 10 UNSTEADINESS ON FEET 10/05/[address] active 11 VENOUS INSUFFICIENCY (CHRONIC) (PERIPHERAL) 10/05/[address] active 12 WEAKNESS 10/05/[address] active Reason for Referral No Reasons for Referral Entered Social History Social History Observation Description Start Date End Date Code Code System Current Smoking Status Tobacco smoking consumption unknown 570460318 SNOMED CT Sex Assigned At Male 1955 29261-9 [facility] Vital Signs Code Code System Vitals Name Values and Units Timing Information 63453-1 [facility] Pain Level Value=0.0 10/22/2023 9279-1 [facility] Respiratory Rate Value=18.0 Units=/m in 10/21/2023 8462-4 [facility] Blood Pressure-Diastolic Value=76 Un its=mmHg 10/21/2023 8480-6 [facility] Blood Pressure-Systolic Bansc=819 Un its=mmHg 10/21/2023 8310-5 [facility] Body Temperature Value=97.8 Units=?? F 10/21/2023 8867-4 [facility] Heart rate Value=85.0 Units=/min 63655-8 [facility] O2 % [facility] Oximetry Value=96.0 Units= % 10/21/2023 52524-5 [facility] Weight Dzoei=286.0 Units=Lbs 8302-2 [facility] Height Value=64.0 Units=Inches 10/15/2023
--- OUTSIDE RECORDS SUMMARY | 2024-11-02 22:12 | XMS_ITS | Patient Health Record ---
Author Organization [facility] Address [address] [place], [place] [address] Care Team Providers Care Truck Hop Name Role Phone No, Pcp Primary Care Provider Danish Mcadams Eugene Unavailable [phone] Dennis Deedee Unavailable Reason For Referral No Information Problems Problem Type SNOMED Code ICD Code Onset Dates Problem Status W/U Status Risk Notes Problem 724061217 Anemia, unspecified type (D64.9) Active confirmed Problem Hepatic encephalopathy (80857563) Hepatic encephalopathy (K76.82) Active confirmed Encounters Encounter Location Date Provider Diagnosis [facility] [address] [place] [address] 07/04/2024 Deedee Collins Anemia, unspecified type D64.9 [...] Insured Coverage Start Date Coverage End Date [facility] [address] [facility] [address] [place] [address] [id number] MERLIN REZA Self - patient is the insured
--- OUTSIDE RECORDS SUMMARY | 2024-11-02 22:12 | XMS_ITS ---
Author Organization [facility] / [facility] Care Team Providers Care Parent Trainer Name Role Phone Ismael Quinteros Unavailable Unavailable Nicolás Jenkins Unavailable Unavailable Suraj Quinteros Unavailable Unavail able Allergies and adverse reactions No Known Allergies Care Team Name Role Address Phone Organization Dates Ismael Quinteros PCP [address] [place] [address] PAC, [place], [address], [facility] (Office): [facility] 08/09/2024 - 11/02/2024 Nicolás Jenkins Attending Physician [address] [place], [address], [facility] (Office): [facility] 08/09/2024 - 11/02/2024 Suraj Quinteros Attending Physician [address] [place] [address] PAC, [place], [address], [facility] (Office): [facility] 08/09/2024 - 11/02/2024 Goals Section Description Status Target Date Functional mobility, positio tim and transfers will be achieved daily with use of appropriate device. Active 11/23/2024 No drug/alcohol use while re siding in the facility Active 11/23/2024 No evidence of internal bleeding x _90 days. Act brian 11/23/2024 Res will be discharged to ap propriate setting with appropriate services when able. Active 11/23/2024 Resident will answer questio ns appropriately until next review Active 11/23/2024 Resident will be encouraged to engage in recommended specialized services over the next 90 days to promote functional improvement and quality of life. Active 11/23/2024 Resident will consume an average of 76-100% food /beverage at meals Active 11/23/2024 Resident will demonstrate im proved coping by: Requesting & accepting assistance as needed. Active 11/23/2024 Resident will follow center policy & procedures Active 11/23/2024 Resident will follow simple instruction until next review. Active 11/23/2024 Resident will have needs ant icipated and met daily until next review Active 11/23/2024 Resident will have no difficulty chewing x 90 da ys Active 11/23/2024 Resident will maintain or im prove mental health stability through compliance with therapeutic interventions and medications over the next 90 days. Active 11/23/2024 Resident will not develop an y complications associated with incontinence Active 11/23/2024 Resident will not harm thems elves or others secondary to their behaviors Active 11/23/2024 Resident will not have any signs of CHF through next review Active 11/23/2024 Resident will not sustain a fall related injury by utilizing fall precautions through next review date. Active 11/23/2024 Resident will participate in ADLs as able Active 11/23/2024 Resident will participate in __ group programs per week and will maintain social contacts on a daily basis according to preferences by next review. Active 11/23/2024 Resident will remain oriente d to person, place and time until next review. Active 11/23/2024 Resident will report relief of pain with treatment/medications as ordered each occurrence until next review. Active 11/23/2024 Resident will report satisfa ction with social interactions and will continue social and independent leisure activities __5____ times per week by next review Active 11/23/2024 Residents Advanced Directive will be honored thr ough review. Active 11/23/2024 Benton will complete Assessm ent of Needs with Counselor Active 11/23/2024 Benton will consume adequate energy to lose weight towards GBW 200# through next review date. Active 11/23/2024 Skin will remain intact Active 11/24/19 25 Will have no s/s of respirat ory distress or pain r/t ascites x __90___ days. Active 11/23/2024 Immunizations Immunization Status Vaccine Details Vaccine Code CodeSystem Date Notes Tdap (Tetanus/ Diptheria) cancelled created date: 08/10/2024 consent date: 08/09/2024 Educated by on 08/10/2024 Tdap (Tetanus/ Diptheria) completed Given 0.5 ml intramuscularly created date: 08/10/2024 administer ed date: 01/09/2016 PCV 20 cancelled Pneumococcal conjugate vaccine 20-valent (PCV20), polysaccharide [id number] conjugate, adjuvant, preservative free 216 CVX created date: 08/10/2024 consent date: 08/09/2024 PPV23 completed pneumococcal polysaccharide vaccine, 23 valent Given 0.5 ml intramuscularly 33 CVX created date: 08/10/2024 administer ed date: 08/23/2017 (MODERNA) COVID-19 Vaccine 2023 cancelled SARS-COV-2 (COVID-19) vaccine, mRNA, spike protein, LNP, preservative free, 50 mcg/0.5 mL dose 312 CVX created date: 08/10/2024 consent date: 08/09/2024 Educated by on 08/10/2024 Influenza, split virus, trivalent, PF 2023 cancelled Influenza, split virus, trivalent, injectable, preservative free 140 CVX created date: 08/10/2024 consent date: 08/09/2024 Educated by on 08/10/2024 Medications Section Medication Name Status Code CodeSystem Dose Route Frequency Admin Type Sig Text Start Date End Date Gabapentin Oral Capsule 300 MG aborted 167598 RXNORM 300 mg Oral three times a day Routine Give 300 mg by mouth three times a day for neurop athic pain 10/08 Naloxone HCl Liquid 4 MG/0.1ML aborted 195314 9 RXNORM 1 applic ation in nostril as needed PRN 1 applic ation in nostri l as needed for Opioid Induce d Respir atory Depres yarely If resp. rate less than 6 per min and opioid depres yarely suspec mahamed, revers e w/Narc an A dminis ter 4mg/0. 1ml Naloxo ne/Brian can intran asally in 1 nostri l W ait 3 minute s. If no respon se or slow to respon d, repeat 4mg/0. 1ml in other nostri l C all 911 11/02 Lactulose Oral Solution 20 GM/30ML aborted 720698 RXNORM 30 ml Oral three times a day Routine Give 30 ml by mouth three times a day relate d to ALCOHO LIC CIRRHO SIS OF LIVER WITH ASCITE S (K70.3 1) 11/02 Acetaminophen Tablet 325 MG aborted 542620 RXNORM 2 tablet Oral as needed PRN Give 2 tablet by mouth every 6 hours as needed for Pain - give 650mg total dose - N OT TO EXCEED 3 GMS APAP / 24 HOURS AND Give 2 tablet by mouth every 6 hours as needed for Elevat ed Temper ature - give 650mg total dose - N OT TO EXCEED 3 GMS APAP / 24 HOURS 11/02 329956 RXNORM 2 tablet Oral as needed PRN Give 2 tablet by mouth every 6 hours as needed for Pain - give 650mg total dose - N OT TO EXCEED 3 GMS APAP / 24 HOURS AND Give 2 tablet by mouth every 6 hours as needed for Elevat ed Temper ature - give 650mg total dose - N OT TO EXCEED 3 GMS APAP / 24 HOURS 11/02 Milk of Magnesia Suspension 400 MG/5ML aborted 635699 RXNORM 30 ml Oral as needed PRN Give 30 ml by mouth as needed for Consti pation ; Use 1st - Give 30 mL by mouth as needed for consti pation 11/02 Bisacodyl Suppository 10 MG aborted 989376 RXNORM 1 suppos itory Rectal as needed PRN Insert 1 suppos itory rectal ly as needed for Consti pation Step 2-Inse rt 1 supp. rectal ly once daily if milk of magnes ia is ineffe ctive 11/02 Fleet Enema Enema 7-19 GM/118ML aborted 651239 RXNORM 1 applic ation Rectal as needed PRN Insert 1 applic ation rectal ly as needed for Consti pation Admini ster if Bisaco dyl ineffe ctive. CALL MD FOR FURTHE R ORDERS IF FLEET ENEMA IS INEFFE CTIVE 11/02 Methadone HCl Oral Solution 10 MG/5ML aborted 761639 RXNORM 40 mg Oral in the morning Routine Give 40 mg [facility] relate d to OTHER PSYCHO ACTIVE SUBSTA NCE USE, UNSPEC IFIED, UNCOMP LICATE D (F19.9 0) 11/02 Spironolacton e Oral Tablet 50 MG aborted 109636 RXNORM 1 tablet Oral in the morning Routine Give 1 tablet by mouth in the [facility] relate d to HEART FAILUR E, UNSPEC IFIED (I50.9 ) 11/02 Xifaxan Oral Tablet 550 MG aborted 293282 RXNORM 1 tablet Oral two times a day Routine Give 1 tablet by mouth two times a day relate d to ALCOHO LIC CIRRHO SIS OF LIVER WITH ASCITE S (K70.3 1) 11/02 Furosemide Oral Tablet 40 MG aborted 015453 RXNORM 1 tablet Oral in the morning Routine Give 1 tablet by mouth in the [facility] relate d to HEART FAILUR E, UNSPEC IFIED (I50.9 ) 11/02 Ferrous Sulfate Oral Tablet Delayed Release 324 MG aborted 1 tablet Oral in the morning Routine Give 1 tablet by mouth in the [facility] relate d to ANEMIA , UNSPEC IFIED (D64.9 ) 11/02 Insta-Glucose Oral Gel 77.4 % aborted 725798 2 RXNORM 24 gram Oral as needed PRN Give 24 gram by mouth as needed for Blood Sugar <60 mg/dl and lethar gic but arousa ble Rechec k blood sugar every 15 minute s until blood sugar is greate r than 70 - Notify MD for blood sugar less than 60. 11/02 Glucagon Emergency Injection Kit 1 MG aborted 1 mg Intramu scular as needed PRN Inject 1 mg intram uscula rly as needed for Blood Sugar < 60 mg/dl, sympto matic, and unresp onsive Prepar e Glucag on per [facility] [employer], includ ing dissol ving in diluen t as necess mc, prior to admini strati on. Rechec k blood sugar every 15 minute s until blood sugar is greate r than 70 - Notify MD for blood sugar less than 60. 11/02 Gabapentin Oral Capsule aborted 600 mg Oral every morning and at bedtime Routine Give 600 mg by mouth every mornin g and at bedtim e for Neurop athic pain 11/02 Gabapentin Oral Capsule 300 MG aborted 072889 RXNORM 300 mg Oral in the afternoon Routine Give 300 mg by mouth in the aftern oon for neurop athic pain 10/08 Mental Status Section Date Assessment Total Score Description 08/14/2024 BIMS 10 moderate cognit brian impairment CAM 0 No delirium ind icated PHQ-9 02 minimal depress ion 08/14/2024 BIMS 10 moderate cognit brian impairment CAM 0 No delirium ind icated PHQ-9 02 minimal depress ion Problems Problem # Description Date of onset Resolved Date Code CodeSystem Concern Status 1 OTHER ABNORMALITIES OF GAIT AND MOBILITY [address] active 2 HEPATIC ENCEPHALOPATHY [address] active 3 ALCOHOLIC CIRRHOSIS OF LIVER WITH ASCITES [address] active 4 ANEMIA, UNSPECIFIED [address] active 5 COVID-[address] active 6 ESSENTIAL (PRIMARY) HYPERTENSION [address] active 7 HYPERTENSIVE HEART DISEASE WITH HEART FAILURE [address] active 8 OTHER CHRONIC PAIN [address] active 9 OTHER MALAISE [address] active 10 OTHER PSYCHOACTIVE SUBSTANCE USE, UNSPECIFIED, UNCOMPLICATED [address] active 11 TOBACCO USE 5 Z72.0 ICD-10-CM active 12 TYPE 2 DIABETES MELLITUS WITHOUT COMPLICATIONS [address] active 13 ALCOHOL ABUSE, UNCOMPLICATED [address] active 14 CHRONIC SYSTOLIC (CONGESTIVE) HEART FAILURE [address] active 15 HOMELESSNESS UNSPECIFIED [address] active 16 MUSCLE WEAKNESS (GENERALIZED) [address] active 17 SPLENOMEGALY, NOT ELSEWHERE CLASSIFIED [address] active 18 ACUTE RESPIRATORY FAILURE, UNSPECIFIED WHETHER WITH HYPOXIA OR HYPERCAPNIA [address] active 19 DIFFICULTY IN WALKING, NOT ELSEWHERE CLASSIFIED [address] active 20 GASTRIC ULCER, UNSPECIFIED ACUTE OR CHRONIC, WITHOUT HEMORRHAGE OR PERFORATION [address] active 21 GASTRO-ESOPHAGEAL REFLUX DISEASE WITHOUT ESOPHAGITIS [address] active 22 GASTROINTESTINAL HEMORRHAGE, UNSPECIFIED [address] active 23 GENERALIZED ANXIETY DISORDER [address] active 24 OTHER CIRRHOSIS OF LIVER [address] active 25 OTHER PANCYTOPENIA [address] active 26 OTHER PRIMARY THROMBOCYTOPENIA [address] active 27 OTHER PSYCHOACTIVE SUBSTANCE ABUSE, UNCOMPLICATED [address] active 28 PORTAL HYPERTENSION [address] active 29 PORTAL VEIN THROMBOSIS [address] active 30 WEAKNESS [address] active Reason for Referral No Reasons for Referral Entered Social History Social History Observation Description Start Date End Date Code Code System Current Smoking Status Tobacco smoking consumption unknown 813151744 SNOMED CT Sex Assigned At Male 1955 63497-6 [facility] Vital Signs Code Code System Vitals Name Values and Units Timing Information 88149-5 [facility] Pain Level Value=2.0 11/02/2024 47748-4 LOINC Weight Mulml=699.7 Units=Lbs 9279-1 [facility] Respiratory Rate Value=17.0 Units=/m in 10/18/2024 8462-4 [facility] Blood Pressure-Diastolic Value=89 Un its=mmHg 10/18/2024 8480-6 [facility] Blood Pressure-Systolic Zddqq=784 Un its=mmHg 10/18/2024 8310-5 [facility] Body Temperature Value=98.0 Units=?? F 10/18/2024 8867-4 [facility] Heart rate Value=79.0 Units=/min 42531-2 [facility] O2 % BldC Oximetry Value=98.0 Units= % 10/18/2024 2339-0 [facility] Blood Sugar Eenmi=358.0 Units=mg/dL 07/14/2024 8302-2 [facility] Height Value=64.0 Units=Inches 07/11/2024
--- OUTSIDE RECORDS SUMMARY | 2024-11-02 22:12 | XMS_ITS | Clinical Summary ---
Author Organization [facility] ity Address [address] [place] [address] Care Team Providers Care Controller Instructor Name Role Phone Nemo Berry MD Primary [...] age to complete this topic Care Teams Controller Instructor Relationship Specialty Start Date End Date Nemo Berry MD [address] [place] [address] PCP - General 08/03/23
[2024-11-02 22:43] LABS: Troponin-I High Sensitivity 8.2 ng/L (<3.5-35.0)
--- NOTE | 2024-11-02 23:18 | PC.NURSE ---
This RN assumed pt care @ 2300. Pt resting quietly, no signs of distress. Respirations even and unlabored. Sitter with pt. Plan of care ongoing.
--- NOTE | 2024-11-02 23:20 | PC.NURSE ---
Upon entering patients room, pt not hooked up to any fluids. No fluids hanging in pts room. Fluids listed in MAR, marked as completed by this RN. Plan of care ongoing.
--- NOTE | 2024-11-03 00:12 | ED_ITS ---
HPI - General Adult General Chief complaint: Overdose Stated complaint: 3 bags heroin overdose, narcanned Time Seen by Provider: 11/02/24 18:13 Source: patient and EMS Limitations: other (Intoxication) History of Present Illness ED Provider: Loli Adhikari PA-C HPI narrative: 69-year-old male with a history of hep C, polysubstance abuse, alcohol use disorder, cirrhosis, esophageal and gastric varices, portal vein thrombosis, housing and security, who presents after overdose. Patient admits to using 3 bags of heroin, he was given Narcan pre arrival. History limited as the patient is quite agitated at this time. Related Data Home Medications ?Medication ?Instructions ?Recorded ?Confirmed gabapentin 600 mg tablet mg PO 10/27/24 lactulose 10 gram/15 mL oral PO 10/27/24 solution (Enulose) Previous Rx's ?Medication ?Instructions ?Recorded ferrous sulfate 324 mg (65 mg 324 mg PO DAILY #30 tabs 08/03/24 iron) tablet,delayed release furosemide 40 mg tablet 40 mg PO DAILY #30 tabs 08/03/24 methadone 10 mg/mL oral 40 mg (4 mL) PO DAILY@0800 #1 mL 08/03/24 concentrate (Methadose) spironolactone 50 mg tablet 50 mg PO DAILY #30 tabs 08/03/24 rifaximin 550 mg tablet (Xifaxan) 550 mg PO BID #60 tabs 08/04/24 Allergies Allergy/AdvReac Type Severity Reaction Status Date / Time No Known Allergies Allergy Verified 11/02/24 16:39 [No Known Allergies*] Review of Systems 2 Review of Systems: Unable to obtain Yes all other systems are reviewed and are negative [facility] Past Medical History Attestation statement: The following information was validated with the patient. Medical History (Updated 11/03/24 @ 08:28 by Blossom Croft DO) Portal vein thrombosis Opioid use disorder Alcohol use disorder Perforated gallbladder Cirrhosis Anemia Ascites Anasarca Pancytopenia Edema of both lower legs Elevated liver enzymes Polysubstance abuse Splenomegaly Pancytopenia Portal vein thrombosis HTN (hypertension) Surgical History (Updated 10/27/24 @ 16:12 by Brenda Valadez MD) S/P TIPS (transjugular intrahepatic portosystemic shunt) Social History Social History Household Members: Friend(s) Household Members Other:: Patient is homeless. Stays with friends at their apartment Housing: Apartment Are you a primary ambulatory care coordinator to a significant other at home: No Do you presently have visiting nurse or other home services: No Unable to assess alcohol history related to: Unable to respond Alcohol intake: current Alcohol intake frequency: 3 or more drinks per day Alcohol type: beer Comment: 1:1 sitter Patient Tobacco Use Status: Current everyday Tobacco user Tobacco use type: Cigarette Cigarettes Per Day: 2 Smoked in Last 30 Days: No e-Cigarette/Vaping Use: Never Used Second Hand Smoke Exposure: Yes Use of substances other than those prescribed or required for medical reasons: Yes Substance Use Type: Opiates and Prescription Drugs Substance Use Frequency: Chronic Longstanding Last Used Substance: Just Prior to Admission Any prior treatment program specific to substance use: No Advance Directives: Yes Advance Directives on File: Yes Advance Directives Date on File: 08/22/22 service: No Current occupational status: retired Current occupation: rt handed Physical Exam ED Vital Signs: Vital Signs - 24 hr 11/02/24 16:31 11/02/24 17:54 11/02/24 19:22 Temperature 98.5 F Pulse Rate 128 H 134 H 142 H Respiratory Rate 20 29 H 20 Blood Pressure 139/82 135/80 112/72 Pulse Oximetry 95 95 95 Oxygen Delivery Method Room Air Room Air Room Air 11/02/24 21:09 11/02/24 22:10 11/03/24 04:28 Temperature 98.3 F Pulse Rate 107 H 128 H 98 Respiratory Rate 16 18 18 Blood Pressure 114/64 119/67 123/73 Pulse Oximetry 96 94 94 Oxygen Delivery Method Room Air Room Air Room Air BMI result Body Mass Index 34.2 Const Other: Awake, agitated, yelling Orientation/consciousness: oriented to person Resp Effort & Inspection: normal respiratory effort Cardio Other: Normal peripheral perfusion GI Other: Patient defecated all over himself... Abdomen is soft, distended, nontender with deep palpation no guarding Skin Other: Warm dry no rash Neuro Other: Not answering questions appropriately due to his agitation but he knows who he was General: oriented to person, no focal motor deficits and CN's II-XI intact bilaterally Extrem Other: Skin of lower extremities is extremely thickened, hyperkeratotic, hyperpigmented, dry with scale, consistent with severe venous stasis dermatitis Psych Other: Hostile, belligerent, combative on arrival Course Reevaluation(s) Reevaluation #1: 11/02 patient arrives hostile and belligerent, combative, he had just received Narcan prior to arrival, having to medicate for his safety and the safety of staff using Haldol and Versed Time: 18:13 Reevaluation #2: LFTs elevated from baseline, from just 2 months ago, we will order an ultrasound of the right upper quadrant Reevaluation #3: Given the patient does not have evidence of acute cholecystitis, he has been medically cleared, I feel he requires care team and recovery consult given he presented as an overdose. We will place a CIWA, he may withdraw. Time: 03:34 Date: 11/03/24 Provider: JAVIER Huber Patient in physician observation for psychiatric evaluation.? No acute events reported overnight. No current complaints. VS stable.? Patient is in bed search status/pending CARE team evaluation. Will continue to monitor. Time: 07:23 Date: 11/03/24 Provider: Blossom Croft, Patient in physician observation for psychiatric evaluation.? No acute events reported overnight. No current complaints. VS stable.? Pending CARE team evaluation. Will continue to monitor. Time: 08:27 Date: 11/03/24 Provider: Blossom Croft DO Physician observation ended at 827am Patient has been cleared for discharge by the CARE team. Will follow up as an outpatient. Consultations Consultation #1: Paging Dr. Person, there was evidence of cholecystitis on ultrasound, although clinically the patient does not have an infection, his abdominal exam was benign, I am adding on blood cultures and a lactic we will start antibiotics Time: 00:17 Consultation #2: Speaking with Dr. Person, I relayed to him that the patient clinically does not have cholecystitis there was no abdominal pain with deep palpation, he feels the elevation in LFTs is likely to progressive cirrhosis and he also has hep C, he also states ultrasound is not of good quality, no surgical intervention required Time: 12:50 Medications Administered Discontinued Medications Generic Name Dose Route Start Last Admin Trade Name Freq PRN Reason Stop Dose Admin Haloperidol Lactate 5 mg 11/02/24 18:13 11/02/24 18:30 Haloperidol Lactate 5 Mg/Ml Vial IM 11/02/24 18:14 5 mg STAT STA Administration Sodium Chloride 1,000 mls @ 999 mls/hr 11/02/24 19:45 11/02/24 23:22 Ns IV 11/02/24 20:45 Infused .Q1H1M LEONARDO Infusion Piperacillin Sod/Tazobactam 50 mls @ 100 mls/hr 11/03/24 00:19 11/03/24 01:30 Sod 3.375 gm/ Sodium Chloride IV 11/03/24 00:48 Infused ONCE ONE Infusion Midazolam HCl 2 mg 11/02/24 18:13 11/02/24 18:30 Midazolam Hcl 2 Mg/2 Ml Vial IM 11/02/24 18:14 2 mg ONCE ONE Administration Medical Decision Making Medical Decision Making MDM Narrative: 69-year-old male with a history of hep C, polysubstance abuse, alcohol use disorder, cirrhosis, esophageal and gastric varices, portal vein thrombosis, housing and security, who presents after overdose. Patient admits to using 3 bags of heroin, he was given Narcan pre arrival. History limited as the patient is quite agitated at this time. Problem: Polysubstance abuse, alcohol use disorder History: Per EMS I have considered the following differential diagnoses: SI, HI, decompensated psychiatric illness, drug/alcohol intoxication Plan: The patient was currently having to be medicated for his safety and the safety of staff. We will be screening basic labs, drug screen and ethanol in the event that he requires care team and/or recovery engineer. I have independently reviewed the following tests: Labs: Pancytopenic, platelets are 80, however left shift noted 81.6, glucose 391, no gap, LFTs are elevated from his baseline, given new elevation, we will obtain an ultrasound of the upper abdomen, lactic 1.9 Ultrasound right upper quadrant:indings: Majority of the pancreas is obscured by overlying bowel gas. Aorta and IVC are obscured. Majority of the liver is obscured. Right kidney is obscured. Mild surface nodularity of the cirrhosis suggested in the partially imaged liver. No right upper quadrant ascites or right pleural effusion in the [id number]. Cholelithiasis are redemonstrated. Gallbladder wall thickening and pericholecystic fluid are concerning for cholecystitis with gallbladder wall measuring 6 mm thickness (image 20 of series 1). Imaged CBD measures at the upper limits of normal (6 mm diameter), image 29 of series 1). IMPRESSION: 1. Cholelithiasis, gallbladder wall thickening, and pericholecystic fluid, concerning for cholecystitis. 2. Imaged CBD is at the upper limits of normal. Lab Data 11/02/24 17:22 11/02/24 18:56 Labs: Lab Results 11/02/24 11/02/24 11/02/24 Range/Units 17:22 18:54 18:56 WBC 4.7 L (4.8-10.8) X10*3/uL RBC 4.57 L D (4.60-5.80) X10*6/uL Hgb 13.9 L D (14.0-18.0) g/dl Hct 40.7 L D (42.0-52.0) % MCV 89.1 (80.0-98.0) fL MCH 30.4 (27.0-33.0) pg MCHC 34.2 (31.0-36.0) g/dl RDW 14.5 (11.0-16.0) % Plt Count 80 L (160-400) X10*3/uL MPV 10.2 (9.4-12.4) fL Immature Gran % (Auto) 0.6 H (0.0-0.4) % Neut % (Auto) 81.6 H (45-73) % Lymph % (Auto) 9.0 L (20-40) % [place] % (Auto) 6.6 (2-11) % Eos % (Auto) 1.3 (0-4) % Baso % (Auto) 0.9 (0-2) % Lymph # (Auto) 0.4 L (1.2-4.9) X10*3/uL [place] # (Auto) 0.3 (0.1-1.2) X10*3/uL Eos # (Auto) 0.1 (0.0-0.4) X10*3/uL Baso # (Auto) 0.0 (0.0-0.2) X10*3/uL Abs Immat Gran (auto) 0.03 (0.00-0.03) X10*3/uL Absolute Neuts (auto) 3.8 (2.0-8.3) x10*3/uL Absolute Nucleated RBC 0.000 (0.0-0.012) X10*3/uL Nucleated RBC % (auto) 0.0 (0.0-0.2) /100WBC Sodium 132 L (135-145) mmol/L Potassium 4.3 (3.3-5.1) mmol/L Chloride 95 L (96-108) mmol/L Carbon Dioxide 21 L (22-29) mmol/L Anion Gap 20 (12-20) BUN 11 (9-16) mg/dL Creatinine 0.95 (0.5-1.4) mg/dL Estim Creat Clear Calc 80.7 Estimated GFR > 60 Random Glucose 391 H* (60-115) mg/dL Lactic Acid (0.5-2.0) mmol/L Calcium 9.3 D (8.4-10.2) mg/dL Magnesium 1.6 (1.6-2.6) mg/dL Total Bilirubin 1.8 H (0.0-1.0) mg/dL Direct Bilirubin 0.7 H (0.0-0.5) mg/dL AST 59 H (5-37) U/L ALT 42 H (0-40) U/L Alkaline Phosphatase 211 H (39-117) U/L Troponin I High Sens 4.5 D (<3.5-35.0) ng/L Total Protein 7.9 (6.5-8.0) g/dL Albumin 3.0 L (3.5-5.0) g/dL Urine Opiates Screen POSITIVE H (Not Detect) Ur Buprenorphine Scrn Not Detected (Not Detect) ng/mL Ur Oxycodone Screen Not Detected (Not Detect) ng/mL Urine Methadone Screen Positive H (Not Detect) ng/mL Urine Fentanyl Screen POSITIVE H (Not Detect) Acetaminophen (<30) mcg/mL Ur Barbiturates Screen Not Detected (Not Detect) Ur Phencyclidine Scrn Not Detected (Not Detect) Ur Amphetamines Screen Not Detected (Not Detect) U Benzodiazepines Scrn Not Detected (Not Detect) Urine Cocaine Screen Not Detected (Not Detect) U Marijuana (THC) Screen Not Detected (Not Detect) Ethyl Alcohol 11 mg/dL 11/02/24 11/03/24 11/03/24 Range/Units 22:18 00:53 08:38 WBC (4.8-10.8) X10*3/uL RBC (4.60-5.80) X10*6/uL Hgb (14.0-18.0) g/dl Hct (42.0-52.0) % MCV (80.0-98.0) fL MCH (27.0-33.0) pg MCHC (31.0-36.0) g/dl RDW (11.0-16.0) % Plt Count (160-400) X10*3/uL MPV (9.4-12.4) fL Immature Gran % (Auto) (0.0-0.4) % Neut % (Auto) (45-73) % Lymph % (Auto) (20-40) % [place] % (Auto) (2-11) % Eos % (Auto) (0-4) % Baso % (Auto) (0-2) % Lymph # (Auto) (1.2-4.9) X10*3/uL [place] # (Auto) (0.1-1.2) X10*3/uL Eos # (Auto) (0.0-0.4) X10*3/uL Baso # (Auto) (0.0-0.2) X10*3/uL Abs Immat Gran (auto) (0.00-0.03) X10*3/uL Absolute Neuts (auto) (2.0-8.3) x10*3/uL Absolute Nucleated RBC (0.0-0.012) X10*3/uL Nucleated RBC % (auto) (0.0-0.2) /100WBC Sodium (135-145) mmol/L Potassium (3.3-5.1) mmol/L Chloride (96-108) mmol/L Carbon Dioxide (22-29) mmol/L Anion Gap (12-20) BUN (9-16) mg/dL Creatinine (0.5-1.4) mg/dL Estim Creat Clear Calc Estimated GFR Random Glucose (60-115) mg/dL Lactic Acid 1.9 (0.5-2.0) mmol/L Calcium (8.4-10.2) mg/dL Magnesium (1.6-2.6) mg/dL Total Bilirubin (0.0-1.0) mg/dL Direct Bilirubin (0.0-0.5) mg/dL AST (5-37) U/L ALT (0-40) U/L Alkaline Phosphatase (39-117) U/L Troponin I High Sens 8.2 D (<3.5-35.0) ng/L Total Protein (6.5-8.0) g/dL Albumin (3.5-5.0) g/dL Urine Opiates Screen (Not Detect) Ur Buprenorphine Scrn (Not Detect) ng/mL Ur Oxycodone Screen (Not Detect) ng/mL Urine Methadone Screen (Not Detect) ng/mL Urine Fentanyl Screen (Not Detect) Acetaminophen < 3 (<30) mcg/mL Ur Barbiturates Screen (Not Detect) Ur Phencyclidine Scrn (Not Detect) Ur Amphetamines Screen (Not Detect) U Benzodiazepines Scrn (Not Detect) Urine Cocaine Screen (Not Detect) U Marijuana (THC) Screen (Not Detect) Ethyl Alcohol mg/dL Discharge Plan Discharge Clinical Impression: Opiate overdose Qualifiers: Encounter type: initial encounter Injury intent: accidental or unintentional Q ualified Code(s): T40.601A - Poisoning by unspecified narcotics, accidental (unintentional), initial encounter Cirrhosis Qualifiers: Hepatic cirrhosis type: unspecified hepatic cirrhosis Ascites presence: u nspecified Qualified Code(s): K74.60 - Unspecified cirrhosis of liver Patient Disposition: Home, Self-Care Instructions: Chronic Liver Disease (ED), Transaminitis (ED) Additional Instructions: Opiate use disorder You were seen in our Emergency Department today for treatment of opiate use disorder. You may have been dosed with medication for opiate use disorder (MOUD) in the form of suboxone or methadone. You may experience feeling some withdrawal symptoms and this is normal. The? dose in the Emergency Department is a starting dose and meant to be titrated up once you follow up with a clinic. Please do not feel discouraged, it is a process. The nurse has reviewed with you where to follow up and what information to bring with you, to continue treatment. You also may have been given naloxone (narcan) to take home with you. This medication is used to potentially treat opiate overdose. If you decide you want to stop or cut down on how much you?re using, you can call or walk into our outpatient Addiction Treatment office: [facility] (M-F 9am-5p) [address], [address] [phone] You may have been provided with safer injection?items, please take time to take care of YOU and your health. Use new supplies whenever possible to lessen the chances of infections and other illnesses.? ?If you need more supplies, please go [facility],? [address] [place] [address] OR you can call or text to coordinate delivery of safer supplies. You were also provided a list of several treatment providers in the area.? If you experience any worsening symptoms you cannot control please return to the ED or call 911. Please follow up at your next appointment. Things to look out for are fevers, chest pain, shortness of breath, severe pain, dizziness, fainting or any other concerns. REPEAT YOUR LIVER FUNCTION TESTS IN THE NEXT 1 WEEK WITH YOUR DOCTOR RETURN FOR WORSENING PAIN, FEVERS, NAUSEA, VOMITING, OVERDOSE Prescriptions: No Action methadone [Methadose] 10 mg/mL Concentrate 40 mg PO DAILY@0800 Qty: 1 0RF Rx Instructions: Partial Fill upon patient request. ferrous sulfate 324 mg (65 mg iron) Tablet,Delayed Release (Dr/Ec) 324 mg PO DAILY Qty: 30 0RF furosemide 40 mg tablet 40 mg PO DAILY Qty: 30 0RF spironolactone 50 mg tablet 50 mg PO DAILY Qty: 30 0RF Xifaxan 550 mg Tablet 550 mg PO BID Qty: 60 0RF lactulose [Enulose] 10 gram/15 mL solution PO gabapentin 600 mg tablet PO Print Language: Bangladeshi
[2024-11-03] MEDS: Piperacillin Sodium/Tazobactam 3.375 GM in 0.9 % Sodium Chloride 50 ML IV (01:00)
--- NOTE | 2024-11-03 01:03 | PC.NURSE ---
Pt medicated per [facility] Plan of care ongoing.
[2024-11-03 01:14] LABS: Lactic Acid 1.9 mmol/L (0.5-2.0)
[2024-11-03 04:28] VITALS: BP 123/73; PULSE 98; RESP 18; TEMP 36.8; O2SAT 94
--- NOTE | 2024-11-03 04:30 | PC.NURSE ---
pt woke up, awake, alert and oriented. answering questions/following commands appropriately. vss and up to date. 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 pt currently remains in physician observation. has no complaints at this time - states, i am feeling much better. on RA w/o difficulty. no sob/wob noted. respirations remain even/unlabored. plan of care ongoing. call cantu placed within reach.
--- NOTE | 2024-11-03 07:30 | PC.NURSE ---
Patient report given to Cyndy RN in POD, Patient will be transferred to room 2. Patient awake calm and cooperative at this time.
--- NOTE | 2024-11-03 07:48 | PC.NURSE ---
Patient transferred to the POD by this RN and security
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
--- NOTE | 2024-11-03 08:39 | PC.NURSE ---
This clinical writer assumed care of this Pt at 0730. Pt A&Ox3, ambulated independently with walker.
[2024-11-03 08:57] LABS: Acetaminophen LAB < 3 mcg/mL (<30)
[2024-11-03 09:33] VITALS: BP 133/83; PULSE 125; RESP 16; TEMP 37; O2SAT 94
--- NOTE | 2024-11-03 09:38 | PC.NURSE ---
patient awake and alert. skin pwd, resp even and non labored, speaking in full, clear sentences. denies pain. patient noted to be tachycardic at discharge, afebrile, CIWA negative. physician aware.
[2024-11-03 10:10] VITALS: PULSE 93
[2024-11-03 10:11] VITALS: PULSE 93
[2024-11-03] MEDS: Naloxone HCl Nasal TAKE HOME 4 MG SPRAY 8 MG NOSTRILALT (10:14)
--- NOTE | 2024-11-03 10:15 | PC.NURSE ---
narcan take home kit given to patient per order
[2024-11-03 10:36] VITALS: BP 133/83; PULSE 93; RESP 16; TEMP 37; O2SAT 95
[2024-11-06 11:44] LABS: PCP Confirmation GC/MS Urine NEGATIVE
== END 2024-11-03 10:38 | disposition home or self-care (01) ==
PROVIDERS: Emergency Medicine; Physician Assistant Medical; Emergency Provider Emergency Medicine
DX: T40.1X1A Poisoning by heroin, accidental (unintentional), initial encounter (principal); K74.60 Unspecified cirrhosis of liver; R11.0 Nausea; R00.0 Tachycardia, unspecified; F11.10 Opioid abuse, uncomplicated; I85.00 Esophageal varices without bleeding; Z51.81 Encounter for therapeutic drug level monitoring; Y92.89 Other specified places as the place of occurrence of the external cause; Z79.899 Other long term (current) drug therapy
CPT/HCPCS: 36415; 76705; 80053; 80143; 80307; 82248; 83605; 83735; 83992; 84484; 85025; 87040; 93005; 96361; 96365; 96372; 99285; J1630; J2250; J2543

== ENCOUNTER → 2024-11-02 17:13 | Outpatient (BNV) | payer OTHER, SELFPAY | PROVIDERS: Emergency Provider Emergency Medicine; Visit Provider Internal Medicine Cardiovascular Disease | DX: R00.0 Tachycardia, unspecified (principal); I44.4 Left anterior fascicular block | CPT/HCPCS: 93010 ==

== ENCOUNTER → 2024-11-02 21:51 | Outpatient (BNV) | payer OTHER, SELFPAY | PROVIDERS: Emergency Provider Emergency Medicine; Visit Provider Radiology Neuroradiology | DX: K80.20 Calculus of gallbladder without cholecystitis without obstruction (principal) | CPT/HCPCS: 76705 ==

== ENCOUNTER 2024-11-15 21:35 | Emergency (ER) | payer OTHER, SELFPAY ==
--- NOTE | 2024-11-15 | ECG_ITS ---
Test Reason : ETOH Blood Pressure : */* mmHG Vent. Rate : 126 BPM Atrial Rate : 126 BPM P-R Int : 98 ms QRS Dur : 94 ms QT Int : 320 ms P-R-T Axes : * -51 21 degrees QTcB Int : 463 ms Sinus tachycardia with short AL Left anterior fascicular block Possible Lateral infarct , age undetermined Abnormal ECG When compared with ECG of 02-Nov-2024 19:24, Borderline criteria for Lateral infarct are now Present Referred By: Generic ED Physician Electronically Signed By: FRAN KAPLAN MD
--- NOTE | ~2024-11-15 | XR_ITS ---
CLINICAL HISTORY: Fall and back pain 3 views lumbar spine Comparison: CR/SR - XR LUMBAR SPINE 2-3V - 12/17/23 00:45 EDT Findings: Grade 1 chronic isthmic L5-S1 spondylolisthesis. Severe L1 compression fracture. Osteopenia. No significant degenerative change. Bilateral internal external biliary drainage catheters. TIPSS stent noted. IMPRESSION: Severe L1 compression fracture is new since the prior exam. Within the limitations of osteopenia, this appears chronic. No acute fracture is otherwise noted. This document has been electronically signed by: Facundo Calderon MD on 11/15/2024 23:45:01
--- NOTE | ~2024-11-15 | CT_ITS ---
CLINICAL HISTORY: Mechanical fall CT head without contrast Comparison: CT/SR - CT HEAD/BRAIN WO IV CON - 12/24/23 13:25 EDT Findings: No intra-axial mass, midline shift, hydrocephalus, or acute hemorrhage. Moderate to severe atrophy like change. Mild nonspecific white matter hypodensity. There is no sinus or mastoid fluid. The orbits are unremarkable. No skull fracture. IMPRESSION: 1. No acute intracranial findings. This document has been electronically signed by: Facundo Calderon MD on 11/15/2024 23:42:43
[2024-11-15 21:50] VITALS: BP 158/78; BP 99/55; PULSE 127; PULSE 134; RESP 20; TEMP 36.8; O2SAT 92; O2SAT 93; BMI 33.8
--- NOTE | 2024-11-15 22:06 | ED_ITS ---
HPI - Fall General Chief Complaint: Fall Stated Complaint: found laying in car, admits to drinking Time Seen by Provider: 11/15/24 21:59 Source: patient and EMS Mode of arrival: EMS Limitations: no limitations History of Present Illness ED Provider: DR. Solis HPI Narrative: 69-year-old male history of hep C, polysubstance abuse, alcohol use disorder, liver cirrhosis, portal vein thrombosis, esophageal and gastric paresis, homeless, patient admitted to drinking alcohol last night and he was trying to get into his car lost balance and fell got stuck for about 2 hours sitting on the sidewalk, patient stated that he normally use a walker to walk and ambulate. Patient is complaining of low back pain, sustained a small superficial skin tear on dorsum of the right hand, no active bleeding. Related Data Home Medications ?Medication ?Instructions ?Recorded ?Confirmed gabapentin 600 mg tablet mg PO 10/27/24 lactulose 10 gram/15 mL oral PO 10/27/24 solution (Enulose) Previous Rx's ?Medication ?Instructions ?Recorded ferrous sulfate 324 mg (65 mg 324 mg PO DAILY #30 tabs 08/03/24 iron) tablet,delayed release furosemide 40 mg tablet 40 mg PO DAILY #30 tabs 08/03/24 methadone 10 mg/mL oral 40 mg (4 mL) PO DAILY@0800 #1 mL 08/03/24 concentrate (Methadose) spironolactone 50 mg tablet 50 mg PO DAILY #30 tabs 08/03/24 rifaximin 550 mg tablet (Xifaxan) 550 mg PO BID #60 tabs 08/04/24 Allergies Allergy/AdvReac Type Severity Reaction Status Date / Time No Known Allergies Allergy Verified 11/15/24 21:52 [No Known Allergies*] Review of Systems 2 Review of Systems: All other systems are reviewed and are negative Constitutional: Reports as per HPI and Reports no additional constitutional complaints Eyes: Reports as per HPI and Reports no additional eye complaints Reports system reviewed and no additional complaints, except as documented Cardiovascular: Reports as per HPI and Reports no additional cardiovascular complaints Respiratory: Reports as per HPI and Reports no additional respiratory complaints Gastrointestinal: Reports as per HPI and Reports no additional gastrointestinal complaints Genitourinary: Reports no additional female genitourinary complaints Musculoskeletal: Reports no additional musculoskeletal complaints Skin/Breast: Reports system reviewed and no additional complaints, except as docu Psychiatric: Reports no additional psychiatric complaints Endocrine: Reports no additional endocrine complaints Hematologic/Lymphatic: Reports no additional hematologic/lymphatic complaints Allergic/Immunologic: Reports no additional allergic/immunologic complaints Reports system reviewed and no additional complaints, except as documented and Reports Abnormal speech present [facility] Past Medical History Medical History Portal vein thrombosis Opioid use disorder Alcohol use disorder Perforated gallbladder Cirrhosis Anemia Ascites Anasarca Pancytopenia Edema of both lower legs Elevated liver enzymes Polysubstance abuse Splenomegaly Pancytopenia Portal vein thrombosis HTN (hypertension) Surgical History S/P TIPS (transjugular intrahepatic portosystemic shunt) Social History Social History Household Members: Friend(s) Household Members Other:: Patient is homeless. Stays with friends at their apartment Housing: Apartment Are you a primary healthcare corporate account director to a significant other at home: No Do you presently have visiting nurse or other home services: No Unable to assess alcohol history related to: Unable to respond Alcohol intake: current Alcohol intake frequency: 3 or more drinks per day Alcohol type: beer Comment: 1:1 sitter Patient Tobacco Use Status: Current everyday Tobacco user Tobacco use type: Cigarette Cigarettes Per Day: 2 Smoked in Last 30 Days: Yes e-Cigarette/Vaping Use: Never Used Second Hand Smoke Exposure: Yes Use of substances other than those prescribed or required for medical reasons: Yes Substance Use Type: Heroin Substance Use Frequency: Occasionally Last Used Substance: Days (ago) Advance Directives: Yes Advance Directives on File: Yes Advance Directives Date on File: 08/22/22 service: No Current occupational status: retired Current occupation: rt handed Physical Exam 2 Vital Signs: Vital Signs: Last Vital Signs Temp 98.3 F 11/15/24 21:50 Pulse 127 H 11/15/24 21:50 Resp 20 11/15/24 21:50 BP 99/55 L 11/15/24 21:50 Pulse Ox 92 11/15/24 21:50 O2 Del Method Room Air 11/15/24 21:50 BMI result Body Mass Index 33.8 Vital signs have been reviewed and appear to be correct. Blood pressure elevated. Heart rate normal. Respiratory rate normal. Temperature normal. Oxygen saturation normal. Appearance: Alert. Oriented X3. No acute distress. Head: Normal external exam. Normocephalic. Atraumatic. No Aden signs noted. No raccoon eyes noted Eyes: PERRLA. EOMI. Conjunctiva and sclera normal. Eyelids normal. ENT: TM's Normal. Pharynx normal. Uvula midline. Moist mucous membranes. No trismus noted. No drooling noted. No muffled voice noted. Neck: Normal inspection. Neck supple. FROM. No adenopathy. Thyroid Normal. No meningeal signs. No neck mass noted. CVS: Normal heart rate and rhythm. Heart sound normal. No murmurs noted. Pulses normal throughout. Respiratory: No respiratory distress. Painless inspiration. Breath sounds normal. No wheezes/rales/rhonchi noted. Chest nontender. No accessory muscle usage noted or decreased air movement noted. Abdomen: Soft and nontender. Bowel sounds normal in all 4 quadrants. No distention noted. No organomegaly noted. No visible injury noted. Back: +low back tenderness, no rebound tenderness, no step-off. Skin: Skin warm and dry. Normal skin color. Normal skin turgor. No rashes/lesions/lacerations noted. Extremities: 2 cm skin tear on dorsum of the right hand with no active bleeding, no foreign body, no deformity. Neuro: Oriented X 3. Cranial nerve exam: II-XII are grossly intact No motor deficit. No sensory deficit. Reflexes normal. Course Reevaluation(s) Reevaluation #1: Homeless, alcohol intoxicated, normally walk with a walker sustained a mechanical fall yesterday, negative workup, GCS of 15 with normal neuro exam and negative head CT. Heart rate improved after a L of normal saline. L1 compression fracture. Patient was able to ambulate in the ED with a walker will discharge. Time: 05:30 Medications Administered Discontinued Medications Generic Name Dose Route Start Last Admin Trade Name Freq PRN Reason Stop Dose Admin Lactated Ringer's 1,000 mls @ 999 mls/hr 11/15/24 22:15 11/15/24 23:00 Lr IV 11/15/24 23:15 999 mls/hr .Q1H1M LEONARDO Administration Medical Decision Making Differential Diagnosis Differential Diagnoses: The differential diagnosis associated with the presentation includes (Alcohol intoxication, mechanical fall, cardiac events, intracranial bleed, lumbar spine fracture.) Admission/Observation Consideration of admission/observation: Escalation of care including admission/observation considered Lab Data MDM Lab Attestation statement: I reviewed the patient's lab results. 11/15/24 22:45 11/15/24 22:45 Labs: Lab Results 11/15/24 Range/Units 22:45 WBC 4.2 L (4.8-10.8) X10*3/uL RBC 4.08 L (4.60-5.80) X10*6/uL Hgb 12.6 L (14.0-18.0) g/dl Hct 36.7 L (42.0-52.0) % MCV 90.0 (80.0-98.0) fL MCH 30.9 (27.0-33.0) pg MCHC 34.3 (31.0-36.0) g/dl RDW 14.7 (11.0-16.0) % Plt Count 62 L (160-400) X10*3/uL MPV 10.4 (9.4-12.4) fL Immature Gran % (Auto) 0.7 H (0.0-0.4) % Neut % (Auto) 74.4 H (45-73) % Lymph % (Auto) 13.5 L (20-40) % [place] % (Auto) 8.7 (2-11) % Eos % (Auto) 1.7 (0-4) % Baso % (Auto) 1.0 (0-2) % Lymph # (Auto) 0.6 L (1.2-4.9) X10*3/uL [place] # (Auto) 0.4 (0.1-1.2) X10*3/uL Eos # (Auto) 0.1 (0.0-0.4) X10*3/uL Baso # (Auto) 0.0 (0.0-0.2) X10*3/uL Abs Immat Gran (auto) 0.03 (0.00-0.03) X10*3/uL Absolute Neuts (auto) 3.1 (2.0-8.3) x10*3/uL Absolute Nucleated RBC 0.000 (0.0-0.012) X10*3/uL Nucleated RBC % (auto) 0.0 (0.0-0.2) /100WBC Sodium 133 L (135-145) mmol/L Potassium 4.0 (3.3-5.1) mmol/L Chloride 100 (96-108) mmol/L Carbon Dioxide 22 (22-29) mmol/L Anion Gap 15 (12-20) BUN 7 L (9-16) mg/dL Creatinine 0.79 (0.5-1.4) mg/dL Estim Creat Clear Calc 90.2 Estimated GFR > 60 Random Glucose 320 H (60-115) mg/dL Calcium 8.4 D (8.4-10.2) mg/dL Total Bilirubin 1.3 H (0.0-1.0) mg/dL AST 50 H (5-37) U/L ALT 39 (0-40) U/L Alkaline Phosphatase 243 H (39-117) U/L Total Creatine Kinase 135 (38-174) U/L Troponin I High Sens 11.4 (<3.5-35.0) ng/L Total Protein 6.5 (6.5-8.0) g/dL Albumin 2.5 L (3.5-5.0) g/dL Ethyl Alcohol 62 mg/dL Independent Interpretation I performed an independent interpretation of an: CT Scan (Head: No acute intracranial pathology.) Radiology Impression Discussion of test interpretation with radiology: I have reviewed the radiologist's reading. Discharge Plan Discharge Clinical Impression: Alcohol intoxication, Closed head injury, Closed compression fracture of L1 vertebra Patient Disposition: Home, Self-Care Instructions: Alcohol Intoxication (ED) Prescriptions: No Action methadone [Methadose] 10 mg/mL Concentrate 40 mg PO DAILY@0800 Qty: 1 0RF Rx Instructions: Partial Fill upon patient request. ferrous sulfate 324 mg (65 mg iron) Tablet,Delayed Release (Dr/Ec) 324 mg PO DAILY Qty: 30 0RF furosemide 40 mg tablet 40 mg PO DAILY Qty: 30 0RF spironolactone 50 mg tablet 50 mg PO DAILY Qty: 30 0RF Xifaxan 550 mg Tablet 550 mg PO BID Qty: 60 0RF lactulose [Enulose] 10 gram/15 mL solution PO gabapentin 600 mg tablet PO Print Language: Unable To Collect
[2024-11-15 22:50] LABS: MANUAL DIFF FLAG NO
[2024-11-15 22:51] LABS: Eosinophils Absolute Auto 0.1 X10*3/uL (0.0-0.4); Eosinophils Percent Auto 1.7 % (0-4); Hematocrit 36.7 % (42.0-52.0); Hemoglobin 12.6 g/dl (14.0-18.0); Imm Gran Abs Auto 0.03 X10*3/uL (0.00-0.03); Imm Gran Pct Auto 0.7 % (0.0-0.4); Lymphocytes Absolute Auto 0.6 X10*3/uL (1.2-4.9); Lymphocytes Percent Auto 13.5 % (20-40); Mean Corpuscular HGB Conc 34.3 g/dl (31.0-36.0); Mean Corpuscular Hemoglobin 30.9 pg (27.0-33.0); Mean Platelet Volume 10.4 fL (9.4-12.4); Monocytes Absolute Auto 0.4 X10*3/uL (0.1-1.2); Monocytes Percent Auto 8.7 % (2-11); Neutrophils Absolute Auto 3.1 x10*3/uL (2.0-8.3); Neutrophils Percent Auto 74.4 % (45-73); Platelet Count 62 X10*3/uL (160-400); Red Blood Count 4.08 X10*6/uL (4.60-5.80); Red Cell Distribution Width 14.7 % (11.0-16.0); White Blood Count 4.2 X10*3/uL (4.8-10.8)
[2024-11-15] MEDS: Lactated Ringers 1,000 ML 999 ML IV (23:00)
[2024-11-15 23:05] LABS: Alanine Aminotransferase 39 U/L (0-40); Albumin Level 2.5 g/dL (3.5-5.0); Alkaline Phosphatase 243 U/L (39-117); Anion Gap 15 (12-20); Aspartate Amino Transferase 50 U/L (5-37); Bilirubin Total 1.3 mg/dL (0.0-1.0); Blood Urea Nitrogen 7 mg/dL (9-16); Calcium 8.4 mg/dL (8.4-10.2); Carbon Dioxide 22 mmol/L (22-29); Chloride 100 mmol/L (96-108); Creatinine Clr Calc Pharmacy 90.2; Estimated Glomerular Filt Rate > 60; Ethanol 62 mg/dL; Glucose Random 320 mg/dL (60-115); Sodium 133 mmol/L (135-145); Total Protein 6.5 g/dL (6.5-8.0)
[2024-11-15 23:12] LABS: Troponin-I High Sensitivity 11.4 ng/L (<3.5-35.0)
--- NOTE | 2024-11-15 23:24 | PC.NURSE ---
Pt resting comfortably on stretcher, CT scan done. Pt advised to ask for assistance if needed.
--- OUTSIDE RECORDS SUMMARY | 2024-11-16 01:07 | XMS_ITS ---
Author Organization [facility] Address [address] [place] [address] Care Team Providers Care Insurance Assistant Name Role Phone Michelle Fatima Primary Care Provider Unavailab Jose Antonio Koehler Unavailable [phone] Alyse Wells Unavailable Unavailable REASON FOR VISIT Patient presents today for cirrhosis Encounters Encounter Location Date Provider Diagnosis [facility] [address] [place] [address] 07/16/2023 Jose Antonio Crawley Plan Of Treatment No Information Progress Notes * MERLIN ALVAREZDOB: [birth year] (69 yo M)Acc No.[id number]:07/16/2023 Progress Notes Patient:?MERLIN ALVAREZ Provider:?Jose Antonio Crawley MD :1955???Age:68 Y???Sex:Male Trevor e:07/16/2023 Address:[address] [place], [place] [id number] Pcp:Michelle Fatima Subjective: * Chief Complaints: * ???1. Patient presents today for cirrhosis. * Medical History:? Objective: * Vitals:? Assessment: Plan: * Treatment: * * The named appointment provid er may or may not be the originator of this progress note, and it is not deemed complete until electronically signed by the appointment provider. Sign off status: Pending * Provider:?Jose Antonio Crawley MD Date:? 024 Generated for Merlin jane/Juana/eTransmitting on:?11/16/2024 01:06 AM EDT
--- OUTSIDE RECORDS SUMMARY | 2024-11-16 01:07 | XMS_ITS | Clinical Summary ---
Author Organization [facility] Address [address] [facility] [address] [place] [address] Care Team Providers Care Transmission And Coordination Engineer Name Role Phone Maria Dolores Mcduffie MD [...] by mouth Once per day. 4 Active ferrous sulfate 325 (65 Fe) MG EC tablet Take 1 tablet by mouth Once per day. Do not crush, chew, or split. Active Active Problems Problem Noted Date Diagnosed [...] Encounters Date Type Department Care Team Description 11/13/2024 Telephone [facility] [place] [address] Maria Dolores Mcduffie MD No Show 11/10/2024 Telephone [facility] [address] [place] [address] Maria Dolores Mcduffie MD Chart Prep 11/06/2024 Telephone [facility] [address] [place] [address] Leann Villanueva, PharmVarun 11/01/2024 Patient Outreach [address] [phone] Maria Dolores Mcduffie MD Transition Of Care (Tcm) (HDF-Scheduled (direct)) 08/25/2024 Telephone [facility] [address] [place], [place] [phone] Maria Dolores Mcduffie MD No Show from Last 3 Months Immunizations Immunization Administration Dates Next Due Influenza Injectable Quadriv [...] with others, in a hotel, in a intermediate, living outside on the street, on a [...] the past 12 months, has t he [employer], gas, oil or water company threatened to [...] this topic Meningococcal Vaccine Aged Out No kainna dee eligible based on patient's age to complete this topic RSV under 20 months Aged Out No longe r eligible based on patient's age to complete this topic Rotavirus Vaccines Aged Out No longer eligible based on patient's age to complete this topic Insurance [facility] [employer] (HMO D-SNP) [place] [id number] Care Teams Transmission And Coordination Engineer Relationship Specialty Start Date End Date Maria Dolores Mcduffie MD [address] [place] [address] PCP - General Internal Medicine 12/03/23
--- OUTSIDE RECORDS SUMMARY | 2024-11-16 01:07 | XMS_ITS | Clinical Summary ---
Author Organization [facility] Address [address] [place] [address] Care Team Providers Care Call Centre Supervisor Name Role Phone Nemo Berry MD Primary [...] age to complete this topic Care Teams Call Centre Supervisor Relationship Specialty Start Date End Date Nemo Berry MD [address] [place] [address] PCP - General 08/03/23
--- OUTSIDE RECORDS SUMMARY | 2024-11-16 01:07 | XMS_ITS | Patient Health Record ---
Author Organization [facility] Address [address] [place], [place] [id number] Care Team Providers Care System Sales Consultant Name Role Phone No, Pcp Primary Care Provider Danish McadamsEugene Unavailable [phone] Dennis Deedee Unavailable [phone] Reason For Referral No Information Problems Problem Type SNOMED Code ICD Code Onset Dates Problem Status W/U Status Risk Notes Problem 355849313 Anemia, unspecified type (D64.9) Active confirmed Problem Hepatic encephalopathy (51438814) Hepatic encephalopathy (K76.82) Active confirmed Encounters Encounter Location Date Provider Diagnosis [facility] [address] [place] [address] 07/04/2024 Deedee Collins Anemia, unspecified type D64.9 [...] Start Date Coverage End Date [facility] [address] [facility] [address] [place] [id number] MERLIN REZA Self - patient is the insured
--- OUTSIDE RECORDS SUMMARY | 2024-11-16 01:07 | XMS_ITS ---
Author Organization [facility] Address [address] [place] [address] Care Team Providers Care Treating Plant Supervisor Name Role Phone Michelle Fatima Primary Care Provider Unavailab Jose Antonio Koehler Unavailable [phone] Alsye Wells Unavailable Unavailable REASON FOR VISIT patient is at [facility] Encounters Encounter Location Date Provider Diagnosis [facility] [address] [place] [address] 07/15/2023 Jose Antonio Crawley Plan Of Treatment No Information Progress Notes * MERLIN ALVAREZDOB: [birth year] (68 yo M)Acc No.[id number]:07/15/2023 Patient:?MERLIN ALVAREZ :1955???Age:68 Y???Sex:Male Address:[address] [place] [address] [address] * true * Date:? Generated for Merlin jane/Juana/eTransmitting on:?11/16/2024 01:06 AM EDT
--- OUTSIDE RECORDS SUMMARY | 2024-11-16 01:07 | XMS_ITS | Encounter Summary ---
Author Organization [employer] Address [address] [facility] [address] [place] [address] Care Team Providers Care Electric Solderer Name Role Phone Maria Dolores Mcduffie MD Primary Care Provide r Reason for Visit * Reason Onset Date Comments No Show 11/13/2024 Encounter Details Date Type Department Care Team (Late st Contact Info) Description 11/13/2024 Telephone [facility] [address] [place] [address] Maria Dolores Mcduffie MD [address] [place] [address] No Show Social History Tobacco Use Types [...] with others, in a hotel, in a fci, living outside on the street, on a [...] encounter Miscellaneous Notes * Telephone Encounter - Serene Ramos RN - 11/13/2024 3:13 PM EDT TC placed to number in chart however number is for [employer] and pt. Is no longer establishedwith them. Number removed from chart. Number removed from chart. Pt. To f/up prn * Telephone Encounter - Sophie Garzon - 11/13/2024 1:28 PM EDT Pt no showed to appt on 11/13/24 documented in this encounter Plan of Treatment Not on file documented as of this encounter Visit Diagnoses Not on filedocumented in this encounter Additional Health Concerns Assessment Noted Time PHQ-9 Depression Total Score: 0 12/02/19 9:50 AM EDT documented as of this encounter Care Teams Electric Solderer Relationship Specialty Start Date End Date Maria Dolores Mcduffie MD [address] [place] [address] PCP - General Internal Medicine 12/03/23 documented as of this encounter
--- OUTSIDE RECORDS SUMMARY | 2024-11-16 01:07 | XMS_ITS | Patient Health Record ---
Author Organization [facility] Address [address] [place] [address] Care Team Providers Care Jockey Room Custodian Name Role Phone Akua Michelle Primary Care Provider Unavailab Jose Antonio Koehler Unavailable [phone] Alyse Wells Unavailable Unavailable Allergies No Known Allergies Reason For Referral No Information Medications Medication SIG (Take, Route, Frequency, Duration) Notes [...] with food Orally Once a day Active Immunizations Vaccine Route Administration Date Status Comme nts Influenza Unknown 03/05/2021 Administered Social History Tobacco Use: Social History Observation Description Date Details (start date - stop date) Current Smoker NA - NA Tobacco Use/Smoking Question Answer Notes Patient is a current smoker How often do you smoke cigarettes? every day How many cigarettes a day do you smoke? 5 or les s Section Notes: Smoker 3-4 cigs per day; pre vious drug and alcohol abuse--- no drugs nor alcohol since approx 2011 Smoker 3-4 cigs per day; pre vious drug and alcohol abuse--- no drugs nor alcohol since approx 2011 Smoker 3-4 cigs per day; pre vious drug and alcohol abuse--- no drugs nor alcohol since approx 2011 Smoker 3-4 cigs per day; pre vious drug and alcohol abuse--- no drugs nor alcohol since approx 2011 Smoker 3-4 cigs per day; pre vious drug and alcohol abuse---still using some EtOH and possibly drugs as of the 09/2021 OV Smoker 3-4 cigs per day; pre vious drug and alcohol abuse---still using some EtOH and possibly drugs as of the 09/2021 OV.....but with reported sobriety since December of 2021 as of the 03/2022 OV Problems Problem Type SNOMED Code ICD Code Onset Dates Problem Status W/U Status Risk Notes Problem [id number] Esophageal varic es without bleeding (I85.00) Active confirmed Problem 02927919 Gastric varices (I86.4) Active confirmed Problem 743349365 Alcoholic cirrhosis of liver without ascites (K70.30) Active confirmed Problem 06983331 Other cirrhosis of liver (K74.69) Active confirmed Problem 373554317 Chronic hepatiti s C without hepatic coma (B18.2) Active confirmed Problem 039993741 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) Active confirmed Plan Of Treatment Pending Test Test Name Order Date CHEM 7 PROFILE 09/24/2021 CHEM 7 PROFILE 04/01/2022 LIVER PROFILE 10/23/2015 LIVER PROFILE 04/01/2022 LIVER PROFILE 12/26/2015 LIVER PROFILE 09/25/2015 LIVER PROFILE 11/14/2015 LIVER PROFILE 09/24/2021 CBC w DIFF 11/14/2015 CBC w DIFF 09/24/2021 CBC w DIFF 10/23/2015 CBC w DIFF 04/01/2022 CBC w DIFF 09/25/2015 ALPHA-FETOPROTEIN,TUMOR MARKER HEPATITIS C VIRAL LOAD 11/14/2015 HEPATITIS C VIRAL LOAD 12/26/2015 HEPATITIS C VIRAL LOAD 10/23/2015 HEPATITIS C VIRAL LOAD 09/25/2015 CT COLON SCREENING NO CONTRAST 6 US ABD 09/24/2021 Prothrombin Time INR 04/01/2022 Ammonia 04/01/2022 Ammonia 09/24/2021 Alpha Fetoprotein 09/24/2021 US abdomen complete 04/01/2022 Insurance Providers Payer Name Payer Address Payer Phone Subscriber Number Group Number Insured Name Patient Relationship to Insured Coverage Start Date Coverage End Date [facility] [address] [address] [place] [address] [id number] MERLIN REZA Self - patient is the insured [facility] [address] [place] [address] [phone] [id number] MERLIN REZA Self - patient is the insured Medical (General) History Medical History History ICD Code Chronic hepatitis C and cirr hosis--Genotye 1b- he was treated with several months of non-pegylated interferon and ribavirin in 2000, but he subsequently stopped that on his own and we were never able to see whether or not he had a response to it; partial portal vein thrombosis-CT scan was negative for any mass--admitted to [facility] early 07/2015 for an UGI bleed due to gastric varices--could not control endoscopically and was transferred to [facility]--TIPS was unsuccessful due to the partial portal vein thrombosis---varices were treated with a Balloon-occluded Retrograde Transvenous Obliteration(BRTO) by the IR department at [facility]--transferred to [facility] rehab 07/18/15 and D/C'd to home on approx. 08/07/15. He has been treated with 12 weeks of Harvoni for the Hepatitis C through the end of December,---nondetectable Hepatitis C viral load in 04/2016 and normal LFT's. He is being evaluated at [facility] and is on the transplant list. Hx of intravenous drug use a nd alcohol abuse--abstinenet since 2011--on Methadone Hypertension Denies NE,DM,CVA,Lung disease,renal dise ase Colonoscopy--malignant colon polyp--- removed [...] small bowel obstruction treated n onsurgically at [facility] Upper GI bleed treated with a TIPS at [facility] in December 2016--he was also started on Coumadin in regard to DVTs and pulmonary emboli. He was dismissed from the tr ansplant program in December of 2020 due to continued substance abuse issues. Surgical History Surgery Date(Month/Year) Umbilical hernia TIPS
[2024-11-16 04:04] VITALS: BP 109/67; PULSE 111; RESP 16; TEMP 36.8; O2SAT 97
[2024-11-16 04:29] LABS: Amphetamine Screen Urine Not Detected (Not Detect); Barbiturates, Urine Not Detected (Not Detect); Benzodiazepines Screen Urine Not Detected (Not Detect); Buprenorphine Scr Not Detected (Not Detect); Cannabinoid Screen Urine Not Detected (Not Detect); Cocaine Screen Urine Not Detected (Not Detect); Fentanyl, urine POSITIVE (Not Detect); Methadone Screen, Urine Positive (Not Detect); Opiate Screen Urine POSITIVE (Not Detect); Oxycodone Screen Urine Not Detected (Not Detect); Phencyclidine Screen Urine Not Detected (Not Detect)
[2024-11-16 06:40] VITALS: BP 112/61; PULSE 107; RESP 16; TEMP 36.7; O2SAT 98
[2024-11-16 06:42] VITALS: BP 109/67; PULSE 111; RESP 16; TEMP 36.7; O2SAT 97
== END 2024-11-16 06:43 | disposition home or self-care (01) ==
PROVIDERS: Emergency Provider Emergency Medicine
DX: F10.129 Alcohol abuse with intoxication, unspecified (principal); S09.90XA Unspecified injury of head, initial encounter; W19.XXXA Unspecified fall, initial encounter; Y93.89 Activity, other specified; Y92.9 Unspecified place or not applicable; Y99.9 Unspecified external cause status; Z79.899 Other long term (current) drug therapy
CPT/HCPCS: 36415; 70450; 72100; 80053; 80307; 82550; 84484; 85025; 93005; 99284; 99285; J7120

== ENCOUNTER → 2024-11-15 21:55 | Outpatient (BNV) | payer OTHER, SELFPAY | PROVIDERS: Emergency Provider Emergency Medicine; Visit Provider Internal Medicine Cardiovascular Disease | DX: I44.4 Left anterior fascicular block (principal); R00.0 Tachycardia, unspecified | CPT/HCPCS: 93010 ==

== ENCOUNTER → 2024-11-15 22:05 | Outpatient (BNV) | payer OTHER, SELFPAY | PROVIDERS: Emergency Provider Emergency Medicine; Visit Provider Radiology Diagnostic Radiology | DX: S09.90XA Unspecified injury of head, initial encounter (principal); S32.010A Wedge compression fracture of first lumbar vertebra, initial encounter for closed fracture; W18.30XA Fall on same level, unspecified, initial encounter | CPT/HCPCS: 70450; 72100 ==

== ENCOUNTER 2024-11-27 09:49 | Inpatient (IN) | payer OTHER, SELFPAY ==
[2024-11-27] VITALS (8 sets, daily range): BP systolic 106–144; BP diastolic 68–115; PULSE 96–122; RESP 15–20; TEMP 36.1–37.2; O2SAT 92–97; BMI 41.6; BMI 38.4
--- NOTE | 2024-11-27 | ECG_ITS ---
Test Reason : TACHY Blood Pressure : */* mmHG Vent. Rate : 95 BPM Atrial Rate : 95 BPM P-R Int : 148 ms QRS Dur : 112 ms QT Int : 358 ms P-R-T Axes : 44 -41 6 degrees QTcB Int : 449 ms Normal sinus rhythm Left axis deviation Abnormal ECG When compared with ECG of 15-Nov-2024 21:55, NV interval has increased Referred By: Mamta Mcadams Electronically Signed By: Foreign [facility]
--- NOTE | ~2024-11-27 | US_ITS ---
EXAMINATION: US SCROTUM HISTORY: scrotal cellulitis. COMPARISON: Comparison is made with the prior examination dated 10/03/2023. FINDINGS: Real-time grayscale ultrasound imaging of the scrotum was performed. RIGHT TESTICLE: The right testis measures 3.1 x 1.9 x 2.3 cm and demonstrates normal homogeneous echotexture. No masses are seen. Color and spectral Doppler flow are seen, although these appear decreased, which may be due to significant scrotal edema requiring an alternative ultrasound probe. RIGHT EPIDIDYMIS: Normal in size, shape, and vascularity. LEFT TESTICLE: The left testis measures 2.8 x 2.0 x 2.2 cm and demonstrates normal homogeneous echotexture. No masses are seen. Color and spectral Doppler flow are seen, although these appear decreased, which may be due to significant scrotal edema requiring an alternative ultrasound probe. LEFT EPIDIDYMIS: Normal in size, shape, and vascularity. VARICOCELE: None. HYDROCELE: No significant hydrocele is seen. OTHER COMMENTS: There is marked scrotal wall edema. No loculated fluid collection is seen. US/US scrotum IMPRESSION: Marked scrotal wall edema consistent with the history of cellulitis. Color and spectral Doppler flow are seen in both testes, although these appear decreased, which may be due to selection of a nonoptimal ultrasound probe due to edema. Electronically signed by: Jose Antonio Norton MD 11/29/2024 10:40 AM EDT
--- NOTE | ~2024-11-27 | CT_ITS ---
CLINICAL HISTORY: suprapubic erythema, swelling c f fourniers CT abdomen and pelvis with contrast Comparison: Reference was made to a prior CT scan report dated 12/24/2023 Findings: No consolidation or effusion. There is irregularity of the liver cortex and redistribution of liver volume compatible with cirrhosis. A TIPS is present. There is no focal liver lesion. The spleen is enlarged. There is a metallic opacity within the central spleen, most likely postprocedural. There is pancreatic volume loss. There is a small left kidney cyst there are foci of heterogeneity within the bilateral kidneys. There are nonocclusive thrombi within the proximal portal vein and within the splenic vein adjacent to the splenic hilum. There is also occlusive thrombus within a branch of the superior mesenteric vein. There are tiny gallstones within the gallbladder. The gallbladder is poorly distended. There is an internal biliary drain. Prior ventral hernia repair. No colitis or bowel obstruction. Colonic diverticulosis without diverticulitis. Unremarkable urinary bladder and prostate. Likely visualization of a normal appendix. There is edema of the soft tissues. There is particularly pronounced edema of the soft tissues of the scrotum. There is no abscess. There are several tiny pockets of gas within the soft tissues of the left hemiscrotum. No involvement of the perineum. There is a severe compression fracture at L1. There is increased density within the L1 vertebral body. There are chronic pars defects at L5 with grade 1 anterolisthesis of L5 on S1. There are chronic nonunited fractures of the left transverse processes of L2 and L3. IMPRESSION: 1. There are thrombi within portions of the the main portal vein, splenic vein and within a branch of the superior mesenteric vein. These were not mentioned on the prior report. 2. There is cirrhosis with portal venous hypertension. 3. There are foci of heterogeneity within the bilateral kidneys. Correlate with urinalysis to exclude pyelonephritis. 4. Cholelithiasis. 5. Particularly pronounced edema of the soft tissues of the scrotum suggesting possible cellulitis. Several tiny pockets of gas within the soft tissues of the left hemiscrotum. No evidence of abscess. No current evidence of peroneal involvement. 6. Severe compression fracture at L1 which may have a subacute component. This document has been electronically signed by: Linda Solitario MD on 11/27/2024 15:54:14
--- NOTE | 2024-11-27 10:08 | ED_ITS ---
HPI - General Adult General Chief complaint: General Medical Stated complaint: Leg Pain Swelling Time Seen by Provider: 11/27/24 10:07 Source: patient, RN notes reviewed and old records reviewed Mode of arrival: ambulatory Limitations: no limitations History of Present Illness ED Provider: Pema ELDER narrative: Patient is a 69-year-old male with history of hep C, polysubstance abuse, alcohol use disorder, liver cirrhosis, portal vein thrombosis, esophageal and gastric paresis, homelessness presenting to the emergency department with complaint of bilateral leg pain and swelling as well as swelling to his scrotum and penis for the past 3 days. Denies fevers. Denies abdominal pain, chest pain, shortness of breath or difficulty breathing. States he is currently homeless and living out of his vehicle, has not taken any of his medications for quite some time. He is unable to specify exactly how long he has been without his medications for. He admits to daily drinking of 5 beers. Denies history of alcohol withdrawal seizures. complaint: Lower extremity edema Onset (ago): day(s) Related Data Home Medications ?Medication ?Instructions ?Recorded ?Confirmed gabapentin 600 mg tablet mg PO 10/27/24 lactulose 10 gram/15 mL oral PO 10/27/24 solution (Enulose) Previous Rx's ?Medication ?Instructions ?Recorded ferrous sulfate 324 mg (65 mg 324 mg PO DAILY #30 tabs 08/03/24 iron) tablet,delayed release furosemide 40 mg tablet 40 mg PO DAILY #30 tabs 08/03/24 methadone 10 mg/mL oral 40 mg (4 mL) PO DAILY@0800 #1 mL 08/03/24 concentrate (Methadose) spironolactone 50 mg tablet 50 mg PO DAILY #30 tabs 08/03/24 rifaximin 550 mg tablet (Xifaxan) 550 mg PO BID #60 tabs 08/04/24 Allergies Allergy/AdvReac Type Severity Reaction Status Date / Time No Known Allergies Allergy Verified 11/27/24 09:53 [No Known Allergies*] Review of Systems 2 Review of Systems: As per HPI Yes all other systems are reviewed and are negative Constitutional: Constitutional: Reports as per HPI PMF Past Medical History Medical History Portal vein thrombosis Opioid use disorder Alcohol use disorder Perforated gallbladder Cirrhosis Anemia Ascites Anasarca Pancytopenia Edema of both lower legs Elevated liver enzymes Polysubstance abuse Splenomegaly Pancytopenia Portal vein thrombosis HTN (hypertension) Surgical History S/P TIPS (transjugular intrahepatic portosystemic shunt) Social History Social History Household Members: Friend(s) Household Members Other:: Patient is homeless. Stays with friends at their apartment Housing: Apartment Are you a primary care manager cna to a significant other at home: No Do you presently have visiting nurse or other home services: No Unable to assess alcohol history related to: Unable to respond Alcohol intake: current Alcohol intake frequency: 3 or more drinks per day Alcohol type: beer Comment: 1:1 sitter Patient Tobacco Use Status: Current everyday Tobacco user Tobacco use type: Cigarette Cigarettes Per Day: 2 Smoked in Last 30 Days: Yes e-Cigarette/Vaping Use: Never Used Second Hand Smoke Exposure: Yes Use of substances other than those prescribed or required for medical reasons: Yes Substance Use Type: Heroin Advance Directives: Yes Advance Directives on File: Yes Advance Directives Date on File: 08/22/22 Do you have a plan to hurt others: No Plan service: No Current occupational status: retired Current occupation: rt handed Physical Exam ED Vital Signs: Vital Signs - 24 hr 11/27/24 09:51 11/27/24 10:14 11/27/24 12:40 Temperature 98 F 96.9 F Pulse Rate 122 H 96 Respiratory Rate 18 20 Blood Pressure 144/115 H 117/76 Pulse Oximetry 92 97 93 Oxygen Delivery Method Room Air Room Air 11/27/24 13:59 11/27/24 15:45 Temperature 99.0 F Pulse Rate 119 H 96 Respiratory Rate 20 16 Blood Pressure 111/74 106/68 Pulse Oximetry 93 94 Oxygen Delivery Method Room Air Room Air BMI result Body Mass Index 41.6 Vital signs have been reviewed and appear to be correct. Blood pressure elevated. Heart rate tachycardic. Respiratory rate normal. Temperature normal. Oxygen saturation normal. Const General: cooperative, no acute distress and ill appearing chronically Nutritional Appearance: Edematous Orientation/consciousness: oriented to person, oriented to place, oriented to time and patient oriented x3 Limitations: no limitations HENMT Head: Yes normocephalic and Yes atraumatic Ears: external ears normal General nose exam: Normal external nose present Face and sinus: Yes face symmetric Mouth: oropharynx normal and moist mucous membranes Throat: Yes uvula midline Eyes Pupils: Equal, round and reactive pupils present Neck Neck: Yes normal visual inspection and Yes supple Resp Effort & Inspection: normal respiratory effort and able to speak in complete sentences Auscultation: clear to auscultation bilaterally Cardio Rate: regular rate Rhythm: regular rhythm Heart sounds: S1 normal heart sound present and S2 normal heart sound present GI Inspection: Yes distended Palpation (GI): Soft to palpation and nontender Auscultation: normoactive bowel sounds Abdomen image: 2 1. Suprapubic erythema, excoriation, edema, tenderness to palpation Other: Exam chaperoned by LU Beebe General: Yes no CVA tenderness Penis: edematous and erythematous Scrotum: edematous diffuse and erythematous diffuse Back/Spine/Pelvis Back: no CVA tenderness Skin General skin exam: elasticity normal and turgor normal Neuro General: oriented to person, oriented to place, oriented to time, patient oriented x3, moves all extremities, no focal motor deficits and CN's II-XI intact bilaterally Cranial nerves: Yes Equal, round and reactive pupils present Cognition (Neuro): normal cognition Extrem General: Yes full ROM, Yes no pedal edema and Yes no calf tenderness Psych Mental Status: mental status grossly normal Affect: normal affect Thought process: Normal thought process present Medications Administered Generic Name Dose Route Start Last Admin Trade Name Freq PRN Reason Stop Dose Admin Vancomycin HCl 2,000 mg in 500 mls @ 250 mls/hr 11/27/24 16:00 11/27/24 16:09 Vancomycin/Ns IV 11/27/24 17:59 250 mls/hr ONCE ONE Administration Discontinued Medications Generic Name Dose Route Start Last Admin Trade Name Freq PRN Reason Stop Dose Admin Furosemide 40 mg 11/27/24 10:38 11/27/24 11:06 Furosemide 40 Mg/4 Ml Vial IVPUSH 11/27/24 10:39 40 mg ONCE ONE Administration Protocol Piperacillin Sod/Tazobactam 50 mls @ 100 mls/hr 11/27/24 10:39 11/27/24 11:55 Sod 3.375 gm/ Sodium Chloride IV 11/27/24 11:08 Infused ONCE ONE Infusion Sodium Chloride 250 mls @ 999 mls/hr 11/27/24 13:30 11/27/24 14:57 Ns IV 11/27/24 13:45 Infused .Q16M LEONARDO Infusion Iohexol 100 ml 11/27/24 11:47 11/27/24 11:47 Iohexol 350 Mg/Ml 100 Ml Infus..Btl IV 11/27/24 11:48 85 ml ONCE ONE Administration Lactulose 10 gm 11/27/24 16:21 11/27/24 16:47 Lactulose 20 Gm/30 Ml Solution PO 11/27/24 16:22 10 gm ONCE ONE Administration Nystatin 1 appl 11/27/24 10:38 11/27/24 11:06 Nystatin Powder 15 Gm Bottle TOPICAL 11/27/24 10:39 1 appl ONCE ONE Administration Protocol Medical Decision Making Medical Decision Making MDM Narrative: Patient is a 69-year-old male with history of hep C, polysubstance abuse, alcohol use disorder, liver cirrhosis, portal vein thrombosis, esophageal and gastric paresis, homelessness presenting to the emergency department with complaint of bilateral leg pain and swelling as well as swelling to his scrotum and penis for the past 3 days. On exam patient is awake, A+Ox3, tachycardic, hypertensive, afebrile, normal neurological exam without focal deficits, physical exam findings as above. Given reported symptoms and physical exam findings, initial differential includes but is not limited to Brittney's gangrene, portal vein thrombus, cirrhosis, ascites, edema/anasarca, anemia. Labs notable for left shift without leukocytosis, mild anemia, elevated lactic, elevated glucose without gap, elevated ammonia, elevated alk phos. Urinalysis notable for 2+ leukocytes, positive nitrites, 1+ blood. CT A/P notable for thrombus to portal vein, splenic vein, and with a branch of superior mesenteric vein; cirrhosis with portal venous hypertension; foci of heterogenicity within bilateral kidneys; edema of the soft tissues of the scrotum with several tiny pockets of gas within left hemiscrotum without evidence of abscess, no perineal involvement. My interpretation is in agreement with the radiologist's interpretation. Case discussed with Dr. De Paz who recommends Lovenox at this time. Admission to medicine accepted by Russ Souza NP. Differential Diagnosis Differential Diagnoses: The differential diagnosis associated with the presentation includes As per [facility] Admission/Observation Consideration of admission/observation: Escalation of care including admission/observation considered Consult Healthcare Provider Management of the patient was discussed with: Maintenance Mechanic (Dr. De Paz) Lab Data [facility] Lab Attestation statement: I reviewed the patient's lab results. As per [facility] 11/27/24 11:04 11/27/24 11:04 Labs: Lab Results 11/27/24 11/27/24 11/27/24 Range/Units 11:04 11:30 13:27 WBC 3.3 L (4.8-10.8) X10*3/uL RBC 3.95 L (4.60-5.80) X10*6/uL Hgb 12.2 L (14.0-18.0) g/dl Hct 37.4 L (42.0-52.0) % MCV 94.7 (80.0-98.0) fL MCH 30.9 (27.0-33.0) pg MCHC 32.6 (31.0-36.0) g/dl RDW 16.0 (11.0-16.0) % Plt Count 65 L (160-400) X10*3/uL MPV 10.3 (9.4-12.4) fL Immature Gran % (Auto) 0.3 (0.0-0.4) % Neut % (Auto) 76.7 H (45-73) % Lymph % (Auto) 12.4 L (20-40) % [place] % (Auto) 8.2 (2-11) % Eos % (Auto) 1.5 (0-4) % Baso % (Auto) 0.9 (0-2) % Lymph # (Auto) 0.4 L (1.2-4.9) X10*3/uL [place] # (Auto) 0.3 (0.1-1.2) X10*3/uL Eos # (Auto) 0.1 (0.0-0.4) X10*3/uL Baso # (Auto) 0.0 (0.0-0.2) X10*3/uL Abs Immat Gran (auto) 0.01 (0.00-0.03) X10*3/uL Absolute Neuts (auto) 2.5 (2.0-8.3) x10*3/uL Absolute Nucleated RBC 0.000 (0.0-0.012) X10*3/uL Nucleated RBC % (auto) 0.0 (0.0-0.2) /100WBC PT 15.1 H (10.9-12.4) SEC INR 1.3 H (0.9-1.1) Sodium 133 L (135-145) mmol/L Potassium 4.1 (3.3-5.1) mmol/L Chloride 97 (96-108) mmol/L Carbon Dioxide 26 (22-29) mmol/L Anion Gap 14 (12-20) BUN 7 L (9-16) mg/dL Creatinine 0.63 (0.5-1.4) mg/dL Estim Creat Clear Calc 126.2 Estimated GFR > 60 Random Glucose 338 H (60-115) mg/dL Lactic Acid 3.3 H* (0.5-2.0) mmol/L Lactic Acid F/U @ 2Hr 2.5 H* (0.5-2.0) mmol/L Lactic Acid F/U @ 4Hr (0.5-2.0) mmol/L Calcium 8.2 L (8.4-10.2) mg/dL Magnesium 1.6 (1.6-2.6) mg/dL Total Bilirubin 2.0 H (0.0-1.0) mg/dL AST 46 H (5-37) U/L ALT 32 (0-40) U/L Alkaline Phosphatase 242 H (39-117) U/L Ammonia 74 H (13-55) umol/L B-Natriuretic Peptide 80 (<100) pg/mL Total Protein 6.8 (6.5-8.0) g/dL Albumin 2.5 L (3.5-5.0) g/dL Lipase 25 (8-78) U/L Urine Color Dark Yellow Urine Appearance Cloudy Urine pH 5.5 (5.0-9.0) Ur Specific [place] 1.020 (1.005-1.025) Urine Protein Trace (Neg-Trace) mg/dL Urine Glucose (UA) >=1000 H (Negative) mg/dL Urine Ketones Trace (Negative) mg/dL Urine Blood Small (1+) H (Negative) Urine Nitrite Positive H (Negative) Ur Leukocyte Esterase Moderate (2+) H (Negative) Urine RBC 3-5 H (0-2) /HPF Urine WBC 11-20 (0-5) /HPF Ur Squamous Epith Cells 0-2 (0-2) /HPF Urine Bacteria 4+ (None Seen) Hyaline Casts 0-2 (0-2) /LPF Urine Opiates Screen POSITIVE H (Not Detect) Ur Buprenorphine Scrn Not Detected (Not Detect) ng/mL Ur Oxycodone Screen Not Detected (Not Detect) ng/mL Urine Methadone Screen Not Detected (Not Detect) ng/mL Urine Fentanyl Screen POSITIVE H (Not Detect) Ur Barbiturates Screen Not Detected (Not Detect) Ur Phencyclidine Scrn Not Detected (Not Detect) Ur Amphetamines Screen Not Detected (Not Detect) U Benzodiazepines Scrn Not Detected (Not Detect) Urine Cocaine Screen Not Detected (Not Detect) U Marijuana (THC) Screen Not Detected (Not Detect) Ethyl Alcohol 51 mg/dL // Range/Units 15:48 WBC (4.8-10.8) X10*3/uL RBC (4.60-5.80) X10*6/uL Hgb (14.0-18.0) g/dl Hct (42.0-52.0) % MCV (80.0-98.0) fL MCH (27.0-33.0) pg MCHC (31.0-36.0) g/dl RDW (11.0-16.0) % Plt Count (160-400) X10*3/uL MPV (9.4-12.4) fL Immature Gran % (Auto) (0.0-0.4) % Neut % (Auto) (45-73) % Lymph % (Auto) (20-40) % [place] % (Auto) (2-11) % Eos % (Auto) (0-4) % Baso % (Auto) (0-2) % Lymph # (Auto) (1.2-4.9) X10*3/uL [place] # (Auto) (0.1-1.2) X10*3/uL Eos # (Auto) (0.0-0.4) X10*3/uL Baso # (Auto) (0.0-0.2) X10*3/uL Abs Immat Gran (auto) (0.00-0.03) X10*3/uL Absolute Neuts (auto) (2.0-8.3) x10*3/uL Absolute Nucleated RBC (0.0-0.012) X10*3/uL Nucleated RBC % (auto) (0.0-0.2) /100WBC PT (10.9-12.4) SEC INR (0.9-1.1) Sodium (135-145) mmol/L Potassium (3.3-5.1) mmol/L Chloride (96-108) mmol/L Carbon Dioxide (22-29) mmol/L Anion Gap (12-20) BUN (9-16) mg/dL Creatinine (0.5-1.4) mg/dL Estim Creat Clear Calc Estimated GFR Random Glucose (60-115) mg/dL Lactic Acid (0.5-2.0) mmol/L Lactic Acid F/U @ 2Hr (0.5-2.0) mmol/L Lactic Acid F/U @ 4Hr 2.3 H* (0.5-2.0) mmol/L Calcium (8.4-10.2) mg/dL Magnesium (1.6-2.6) mg/dL Total Bilirubin (0.0-1.0) mg/dL AST (5-37) U/L ALT (0-40) U/L Alkaline Phosphatase (39-117) U/L Ammonia (13-55) umol/L B-Natriuretic Peptide (<100) pg/mL Total Protein (6.5-8.0) g/dL Albumin (3.5-5.0) g/dL Lipase (8-78) U/L Urine Color Urine Appearance Urine pH (5.0-9.0) Ur Specific [place] (1.005-1.025) Urine Protein (Neg-Trace) mg/dL Urine Glucose (UA) (Negative) mg/dL Urine Ketones (Negative) mg/dL Urine Blood (Negative) Urine Nitrite (Negative) Ur Leukocyte Esterase (Negative) Urine RBC (0-2) /HPF Urine WBC (0-5) /HPF Ur Squamous Epith Cells (0-2) /HPF Urine Bacteria (None Seen) Hyaline Casts (0-2) /LPF Urine Opiates Screen (Not Detect) Ur Buprenorphine Scrn (Not Detect) ng/mL Ur Oxycodone Screen (Not Detect) ng/mL Urine Methadone Screen (Not Detect) ng/mL Urine Fentanyl Screen (Not Detect) Ur Barbiturates Screen (Not Detect) Ur Phencyclidine Scrn (Not Detect) Ur Amphetamines Screen (Not Detect) U Benzodiazepines Scrn (Not Detect) Urine Cocaine Screen (Not Detect) U Marijuana (THC) Screen (Not Detect) Ethyl Alcohol mg/dL Independent Interpretation I performed an independent interpretation of an: CT Scan Interpretation: CT A/P notable for thrombus to portal vein, splenic vein, and with a branch of superior mesenteric vein; cirrhosis with portal venous hypertension; foci of heterogenicity within bilateral kidneys; edema of the soft tissues of the scrotum with several tiny pockets of gas within left hemiscrotum without evidence of abscess, no perineal involvement. Radiology Impression Discussion of test interpretation with radiology: I have reviewed the radiologist's reading. Radiologist Impression: CT abdomen and pelvis with contrast Comparison: Reference was made to a prior CT scan report dated 12/24/2023 Findings: No consolidation or effusion. There is irregularity of the liver cortex and redistribution of liver volume compatible with cirrhosis. A TIPS is present. There is no focal liver lesion. The spleen is enlarged. There is a metallic opacity within the central spleen, most likely postprocedural. There is pancreatic volume loss. There is a small left kidney cyst there are foci of heterogeneity within the bilateral kidneys. There are nonocclusive thrombi within the proximal portal vein and within the splenic vein adjacent to the splenic hilum. There is also occlusive thrombus within a branch of the superior mesenteric vein. There are tiny gallstones within the gallbladder. The gallbladder is poorly distended. There is an internal biliary drain. Prior ventral hernia repair. No colitis or bowel obstruction. Colonic diverticulosis without diverticulitis. Unremarkable urinary bladder and prostate. Likely visualization of a normal appendix. There is edema of the soft tissues. There is particularly pronounced edema of the soft tissues of the scrotum. There is no abscess. There are several tiny pockets of gas within the soft tissues of the left hemiscrotum. No involvement of the perineum. There is a severe compression fracture at L1. There is increased density within the L1 vertebral body. There are chronic pars defects at L5 with grade 1 anterolisthesis of L5 on S1. There are chronic nonunited fractures of the left transverse processes of L2 and L3. IMPRESSION: 1. There are thrombi within portions of the the main portal vein, splenic vein and within a branch of the superior mesenteric vein. These were not mentioned on the prior report. 2. There is cirrhosis with portal venous hypertension. 3. There are foci of heterogeneity within the bilateral kidneys. Correlate with urinalysis to exclude pyelonephritis. 4. Cholelithiasis. 5. Particularly pronounced edema of the soft tissues of the scrotum suggesting possible cellulitis. Several tiny pockets of gas within the soft tissues of the left hemiscrotum. No evidence of abscess. No current evidence of peroneal involvement. 6. Severe compression fracture at L1 which may have a subacute component. External Record Review External record reviewed: Inpatient record, Office record and Outpatient record Prescription Management I considered prescription management with: Antibiotic Critical Care Time Critical Care Time Critical Care Time: Yes Total Critical Care Time: 47 Attestation: I have personally provided critical care time exclusive of time spent on separately billable procedures. Time includes review of lab data, radiology results, discussion with consultants, and monitoring for potential decompensation. Intervention performed as documented. Discharge Plan Discharge Patient Disposition: Admitted As Inpatient Print Language: Hebrew Sepsis Bolus Exclusion Sepsis Bolus Exclusion This patient met severe sepsis criteria due to the following condition(s):: D ocumentation of septic shock (PATIENT DID NOT MEET CRITERIA FOR SEVERE SEPSIS) In my clinical judgement the administration of 30 ml/kg of crystalloid would be detrimental to this patient due to the patient's following conditions:: Concern for fluid overload Replace the 30 mls/kg with (Zero amount not acceptable and all fluids for severe sepsis must be given at GREATER than 125 mls/hr) *Note: One of the hassan must be documented
[2024-11-27] MEDS: Furosemide 40 MG/4 ML VIAL IVPUSH (11:06)
[2024-11-27] MEDS: Piperacillin Sodium/Tazobactam 3.375 GM in 0.9 % Sodium Chloride 50 ML IV ×2 (11:06→22:18)
[2024-11-27] MEDS: Nystatin Powder 15 GM BOTTLE 1 APPL TOPICAL (11:06)
[2024-11-27 11:14] LABS: MANUAL DIFF FLAG NO
[2024-11-27 11:15] LABS: Basophils Percent Auto 0.9 % (0-2); Eosinophils Absolute Auto 0.1 X10*3/uL (0.0-0.4); Eosinophils Percent Auto 1.5 % (0-4); Hematocrit 37.4 % (42.0-52.0); Hemoglobin 12.2 g/dl (14.0-18.0); Imm Gran Abs Auto 0.01 X10*3/uL (0.00-0.03); Imm Gran Pct Auto 0.3 % (0.0-0.4); Lymphocytes Absolute Auto 0.4 X10*3/uL (1.2-4.9); Lymphocytes Percent Auto 12.4 % (20-40); Mean Corpuscular HGB Conc 32.6 g/dl (31.0-36.0); Mean Corpuscular Hemoglobin 30.9 pg (27.0-33.0); Mean Corpuscular Volume 94.7 fL (80.0-98.0); Mean Platelet Volume 10.3 fL (9.4-12.4); Monocytes Absolute Auto 0.3 X10*3/uL (0.1-1.2); Monocytes Percent Auto 8.2 % (2-11); Neutrophils Absolute Auto 2.5 x10*3/uL (2.0-8.3); Neutrophils Percent Auto 76.7 % (45-73); Red Blood Count 3.95 X10*6/uL (4.60-5.80); White Blood Count 3.3 X10*3/uL (4.8-10.8)
[2024-11-27 11:20] LABS: Ammonia 74 umol/L (13-55); Platelet Count 65 X10*3/uL (160-400)
[2024-11-27 11:22] LABS: INTERNATIONAL NORM RATIO 1.3 (0.9-1.1); Prothrombin Time 15.1 SEC (10.9-12.4)
[2024-11-27 11:28] LABS: Alanine Aminotransferase 32 U/L (0-40); Albumin Level 2.5 g/dL (3.5-5.0); Alkaline Phosphatase 242 U/L (39-117); Anion Gap 14 (12-20); Aspartate Amino Transferase 46 U/L (5-37); Blood Urea Nitrogen 7 mg/dL (9-16); Calcium 8.2 mg/dL (8.4-10.2); Carbon Dioxide 26 mmol/L (22-29); Chloride 97 mmol/L (96-108); Creatinine Clr Calc Pharmacy 126.2; Estimated Glomerular Filt Rate > 60; Ethanol 51 mg/dL; Glucose Random 338 mg/dL (60-115); Lipase 25 U/L (8-78); Magnesium 1.6 mg/dL (1.6-2.6); Potassium 4.1 mmol/L (3.3-5.1); Sodium 133 mmol/L (135-145); Total Protein 6.8 g/dL (6.5-8.0)
[2024-11-27 11:32] LABS: Lactic Acid 3.3 mmol/L (0.5-2.0)
[2024-11-27 11:34] LABS: B Type Natriuretic Peptide 80 pg/mL (<100)
[2024-11-27 11:41] LABS: Appearance Urine Cloudy; Color Urine Dark Yellow; Glucose Urine UA >=1000 mg/dL (Negative); Leukocyte Esterase Urine Moderate (2+) (Negative); Nitrite Urine Positive (Negative); PH 5.5 (5.0-9.0); UMIC TRIGGER UACC YES; Urine Blood Small (1+) (Negative); Urine Ketones Trace mg/dL (Negative); Urine Protein Trace mg/dL (Neg-Trace)
[2024-11-27] MEDS: iohexoL 350 MG/ML 100 ML INFUS..BTL IV (11:47)
[2024-11-27 11:56] LABS: Amphetamine Screen Urine Not Detected (Not Detect); Barbiturates, Urine Not Detected (Not Detect); Benzodiazepines Screen Urine Not Detected (Not Detect); Buprenorphine Scr Not Detected (Not Detect); Cannabinoid Screen Urine Not Detected (Not Detect); Cocaine Screen Urine Not Detected (Not Detect); Fentanyl, urine POSITIVE (Not Detect); Methadone Screen, Urine Not Detected (Not Detect); Opiate Screen Urine POSITIVE (Not Detect); Oxycodone Screen Urine Not Detected (Not Detect); Phencyclidine Screen Urine Not Detected (Not Detect)
[2024-11-27 11:59] LABS: Bacteria Urine 4+ (None Seen); Hyaline Casts Urine 0-2 /LPF (0-2); Squamous Epithelial Cell Urine 0-2 /HPF (0-2); UACC Culture Trigger YES
[2024-11-27 13:12] LABS: Reflex Lactate? Lactic Acid Added
[2024-11-27 13:51] LABS: ~Lactic Acid-LAB USE ONLY 2.5 mmol/L (0.5-2.0)
[2024-11-27] MEDS: 0.9 % Sodium Chloride 250 ML 999 ML IV (14:00)
[2024-11-27 15:32] LABS: Reflex Lactate? 2 Y
[2024-11-27] MEDS: vancomycin/NS 2,000 MG/500 ML PLAST..BAG 250 MG IV (16:09)
[2024-11-27 16:10] LABS: ~Lactic Acid-LAB USE ONLY 2.3 mmol/L (0.5-2.0)
--- NOTE | 2024-11-27 16:11 | PC.NURSE ---
Alert and oriented, remains NPO pending review of CT scan. Currently denies pain or discomfort. Feet elevated, nystatin applied to bilteral abdominal fold, groin , and scrotum.
[2024-11-27] MEDS: Lactulose 20 GM/30 ML SOLUTION 10 GM PO (16:47)
[2024-11-27] MEDS: Enoxaparin Sodium 120 MG/0.8 ML SYRINGE 110 MG SUBCUT (17:02)
[2024-11-27 17:16] LABS: Hematocrit 37.2 % (42.0-52.0); Hemoglobin 12.6 g/dl (14.0-18.0); Mean Corpuscular HGB Conc 33.9 g/dl (31.0-36.0); Mean Corpuscular Hemoglobin 31.2 pg (27.0-33.0); Mean Corpuscular Volume 92.1 fL (80.0-98.0); Mean Platelet Volume 10.3 fL (9.4-12.4); Red Blood Count 4.04 X10*6/uL (4.60-5.80); Red Cell Distribution Width 15.9 % (11.0-16.0); White Blood Count 3.5 X10*3/uL (4.8-10.8)
--- NOTE | 2024-11-27 17:22 | PM.IMHP ---
History of Present Illness Date of Service: 11/27/24 Attending physician on admission: Quinton Mo Chief Complaint: Leg and scrotal swelling Pt is a 69-year-old male with a PMH significant for?HTN, hepatic cirrhosis complicated by pancytopenia and portal vein thrombosis previously anticoagulated with Lovenox, hx of variceal bleeding s/p tips, polysubstance use, alcohol use disorder, GERD, and long hx of medication noncompliance who presents to the ED with?swelling and pain in legs and scrotum x3 days. Pt reports pain and swelling so bad has been unable to move his legs or walk. No fever or chills. Denies shortness of breath. No chest pain/pressure, palpitations. Denies nausea, vomiting, abdominal pain. Continues to drink despite cirrhosis and s/p tips, 3-5 beers daily with last drink yesterday night. Also snorts heroin, last used yesterday. Pt currently homeless and living out of a car, has not been taking prescription medications for many months. Of note, pt with hx of portal vein thrombosis previously anticoagulated on Lovenox, though with long hx of medication noncompliance. Imaging on 07/31/2024 and again on 11/02/2024 showed patent portal and splenic veins. In the ED pt was tachycardic up to 122, and with low-grade fever of 99.0. Labs were significant for stable pancytopenia in line with previous, hyponatremia 133, glucose 338, initial lactic acid 3.3 with repeat 2.5 and 2.3, T bili 2.0, AST 46, alk-phos 242, and ammonia 74. UA positive for UTI. Tox screen positive for opiates, fentanyl, and ethyl alcohol 51. CT?of abdomen and pelvis showed thrombus within portions of main portal vein, splenic vein, and branch of superior mesenteric vein new since prior report. Also showed likely cellulitis of scrotum without evidence of abscess, and question of possible pyelonephritis. EKG demonstrated normal sinus rhythm without evidence of significant ischemia. Pt was treated in the ED with nystatin furosemide, IVF, lactulose, therapeutic Lovenox, vanc, and Zosyn. Pt is admitted to the hospital for treatment and further evaluation of scrotal and lower extremity swelling in the setting of scrotal cellulitis, pyelonephritis, and portal vein thrombosis. Review of Systems Review of Systems: Negative except for that which is stated in the [facility] Medical History Portal vein thrombosis Opioid use disorder Alcohol use disorder Perforated gallbladder Cirrhosis Anemia Ascites Anasarca Pancytopenia Edema of both lower legs Elevated liver enzymes Polysubstance abuse Splenomegaly Pancytopenia Portal vein thrombosis HTN (hypertension) Surgical History S/P TIPS (transjugular intrahepatic portosystemic shunt) Social History Household Members: Friend(s) Household Members Other:: Patient is homeless. Stays with friends at their apartment Housing: Apartment Are you a primary child care attendant school to a significant other at home: No Do you presently have visiting nurse or other home services: No Unable to assess alcohol history related to: Unable to respond Alcohol intake: current Alcohol intake frequency: 3 or more drinks per day Alcohol type: beer Comment: 1:1 sitter Patient Tobacco Use Status: Current everyday Tobacco user Tobacco use type: Cigarette Cigarettes Per Day: 2 Smoked in Last 30 Days: Yes e-Cigarette/Vaping Use: Never Used Second Hand Smoke Exposure: Yes Use of substances other than those prescribed or required for medical reasons: Yes Substance Use Type: Heroin Advance Directives: Yes Advance Directives on File: Yes Advance Directives Date on File: 08/22/22 Do you have a plan to hurt others: No Plan service: No Current occupational status: retired Current occupation: rt handed Meds Allergies Allergy/AdvReac Type Severity Reaction Status Date / Time No Known Allergies Allergy Verified 11/27/24 09:53 [No Known Allergies*] Active Medications: Current Medications Vancomycin HCl (Vancomycin/Ns) 2,000 mg in 500 mls @ 250 mls/hr IV ONCE ONE Stop: 11/27/24 17:59 Last Admin: 11/27/24 16:09 Dose: 250 mls/hr Home Medications ?Medication ?Instructions ?Recorded ?Confirmed ?Last Taken ?Type gabapentin 600 mg tablet 600 mg PO BID 10/27/24 11/27/24 Unknown History lactulose 10 gram/15 mL oral 30 g PO TID 10/27/24 11/27/24 Unknown History solution (Enulose) Physical Exam Vital Signs and Narrative: Vital Signs: Last Vital Signs Temp 99.0 F 11/27/24 13:59 Pulse 121 H 11/27/24 17:06 Resp 17 11/27/24 17:06 BP 124/83 11/27/24 17:06 Pulse Ox 96 11/27/24 17:06 O2 Del Method Room Air 11/27/24 17:06 BMI result Body Mass Index 41.6 General: AOx3, no acute distress Resp: CTA bilaterally CVS: S1, S2, RRR GI: +BS, NT, no distention Skin: Beefy red rash with satellite lesions within groin and abdominal folds. Neuro: Cranial nerves II-XII grossly intact bilaterally. Motor grossly intact bilaterally : Swelling and erythema of scrotum along with significant swelling without erythema of penis Extremities: Lower extremities with erythema and chronic venous status dermatitis with lichenification, as pictured below. Psych: Appropriate affect Results Labs 11/27/24 17:05 11/27/24 11:04 Labs: Laboratory Results - last 24 hr 11/27/24 11/27/24 11/27/24 11:04 11:30 13:27 MCV 94.7 MCH 30.9 MCHC 32.6 RDW 16.0 Plt Count 65 L MPV 10.3 Immature Gran % (Auto) 0.3 Neut % (Auto) 76.7 H Lymph % (Auto) 12.4 L [place] % (Auto) 8.2 Eos % (Auto) 1.5 Baso % (Auto) 0.9 Lymph # (Auto) 0.4 L [place] # (Auto) 0.3 Eos # (Auto) 0.1 Baso # (Auto) 0.0 Abs Immat Gran (auto) 0.01 Absolute Neuts (auto) 2.5 Absolute Nucleated RBC 0.000 Nucleated RBC % (auto) 0.0 PT 15.1 H INR 1.3 H Anion Gap 14 Estim Creat Clear Calc 126.2 Estimated GFR > 60 Random Glucose 338 H Lactic Acid 3.3 H* Lactic Acid F/U @ 2Hr 2.5 H* Lactic Acid F/U @ 4Hr Calcium 8.2 L Magnesium 1.6 Total Bilirubin 2.0 H AST 46 H ALT 32 Alkaline Phosphatase 242 H Ammonia 74 H B-Natriuretic Peptide 80 Total Protein 6.8 Albumin 2.5 L Lipase 25 Urine Color Dark Yellow Urine Appearance Cloudy Urine pH 5.5 Ur Specific [place] 1.020 Urine Protein Trace Urine Glucose (UA) >=1000 H Urine Ketones Trace Urine Blood Small (1+) H Urine Nitrite Positive H Ur Leukocyte Esterase Moderate (2+) H Urine RBC 3-5 H Urine WBC 11-20 Ur Squamous Epith Cells 0-2 Urine Bacteria 4+ Hyaline Casts 0-2 Urine Opiates Screen POSITIVE H Ur Buprenorphine Scrn Not Detected Ur Oxycodone Screen Not Detected Urine Methadone Screen Not Detected Urine Fentanyl Screen POSITIVE H Ur Barbiturates Screen Not Detected Ur Phencyclidine Scrn Not Detected Ur Amphetamines Screen Not Detected U Benzodiazepines Scrn Not Detected Urine Cocaine Screen Not Detected U Marijuana (THC) Screen Not Detected Ethyl Alcohol 51 11/27/24 15:48 MCV MCH MCHC RDW Plt Count MPV Immature Gran % (Auto) Neut % (Auto) Lymph % (Auto) [place] % (Auto) Eos % (Auto) Baso % (Auto) Lymph # (Auto) [place] # (Auto) Eos # (Auto) Baso # (Auto) Abs Immat Gran (auto) Absolute Neuts (auto) Absolute Nucleated RBC Nucleated RBC % (auto) PT INR Anion Gap Estim Creat Clear Calc Estimated GFR Random Glucose Lactic Acid Lactic Acid F/U @ 2Hr Lactic Acid F/U @ 4Hr 2.3 H* Calcium Magnesium Total Bilirubin AST ALT Alkaline Phosphatase Ammonia B-Natriuretic Peptide Total Protein Albumin Lipase Urine Color Urine Appearance Urine pH Ur Specific [place] Urine Protein Urine Glucose (UA) Urine Ketones Urine Blood Urine Nitrite Ur Leukocyte Esterase Urine RBC Urine WBC Ur Squamous Epith Cells Urine Bacteria Hyaline Casts Urine Opiates Screen Ur Buprenorphine Scrn Ur Oxycodone Screen Urine Methadone Screen Urine Fentanyl Screen Ur Barbiturates Screen Ur Phencyclidine Scrn Ur Amphetamines Screen U Benzodiazepines Scrn Urine Cocaine Screen U Marijuana (THC) Screen Ethyl Alcohol Assessment and Plan (1) Cellulitis of scrotum: Status: Acute (2) Portal vein thrombosis: Status: Acute (3) Acute pyelonephritis: Status: Acute Plan Pt is a 69-year-old male with a PMH significant for?HTN, hepatic cirrhosis complicated by pancytopenia and portal vein thrombosis previously anticoagulated with Lovenox, hx of variceal bleeding s/p tips, polysubstance use, alcohol use disorder, GERD, and long hx of medication noncompliance who presents to the ED with?swelling and pain in legs and scrotum x3 days. Pt is admitted to the hospital for treatment and further evaluation of scrotal and lower extremity swelling in the setting of scrotal cellulitis and pyelonephritis with sepsis, and portal vein thrombosis. Portal, splenic, and superior mesenteric vein thrombi New since prior imaging on 07/31 and 11/02 Will treat with therapeutic Lovenox b.i.d. GI consult Lower leg edema Ongoing x3 days In the setting of above Will give albumin and Lasix 40 mg IV b.i.d. Treat as above with therapeutic Lovenox Acute pyelonephritis with sepsis UA positive, CT concerning for pyelonephritis Will treat with vanc and Zosyn, started on 11/27/2024 Meets sepsis criteria with tachycardia and leukopenia (chronic but decreased from prior of 4.2) Pt given IVF and started on broad-spectrum antibiotics Follow urine cultures Scrotal cellulitis w/genitourinary swelling Treat as above with vanc and Zosyn Treat with Lasix as above Wound care consult Candidiasis Groin and abdominal folds with beefy red rash with satellite lesions Treat with nystatin powder t.i.d. Wound care consult Alcoholic cirrhosis with hyperammonemia Pt given lactulose in the ED Continue home lactulose, spironolactone, rifaximin Pancytopenia Leukopenia decreased from prior, H&H and thrombocytopenia similar to prior Continue iron supplementation Follow CBC Peripheral neuropathy Continue gabapentin Polysubstance use disorder Pt continues to daily consume alcohol and snort heroin Monitor on [facility] Addiction medicine consult Full Code Attending:?Dr. Mo DVT Prophylaxis: Therapeutic Lovenox Pt will require a hospitalization of at least two nights for treatment and further evaluation of scrotal and lower extremity swelling in the setting of scrotal cellulitis and pyelonephritis with sepsis, and portal vein thrombosis. Pt require administration of IV antibiotics, therapeutic Lovenox, close monitoring of labs, and specialist consultation with GI. Quality Stroke Does the patient have a stroke diagnosis?: No VTE Prior VTE?: No VTE Risk Level:: Medical - moderate - high VTE Device Contraindication: Treatment Not Indicated VTE Drug Contraindication: N/A - Med Ordered
--- NOTE | 2024-11-27 17:25 | MHC.EDTECH ---
patient put on a hospital bed
--- NOTE | 2024-11-27 17:25 | PC.NURSE ---
transferred into hospital bed, legs elevated. Denies pain or discomfort. Using bed side urinal
[2024-11-27 17:28] LABS: Platelet Count 81 X10*3/uL (160-400)
[2024-11-27 17:38] LABS: Cancel Lactic Acid Canceled
[2024-11-27 17:59] LABS: INTERNATIONAL NORM RATIO 1.2 (0.9-1.1); Prothrombin Time 14.3 SEC (10.9-12.4)
--- NOTE | 2024-11-27 19:21 | PHA.PROG ---
Admission Date/Time: November 27, 2024 16:28 Indication: skin and skin structure Weight in k kg Adjusted body weight in Kg: [place] body weight in Kg: Obesity Dosing Indication % IBW: Serum Creatinine - Last 168 Hours 11/27/24 11:04 Creatinine 0.63 Estimated CrCl and GFR - Last 168 Hours 11/27/24 11:04 Estim Creat Clear Calc 126.2 Estimated GFR > 60 Vancomycin Loading Dose: 2000 mg Current Vancomycin Dosing Regimen: 1500 mg q 12 hours Vancomycin Monitoring using AUC goal of 400 - 600 range with trough as surrogate marker: predicted auc [id number] Date and Time for next Vancomycin Level to be drawn: 11/28/24 after 2 doses Pharmacist Comments on Vancomycin Plan: Vancomycin dosing will take advantage of [employer] as a clinical decision support tool that uses Bayesian modeling to calculate individual patient's pharmacokinetic parameters and forecast the patient's drug concentration time course with the target goal AUC 24 range of 400 - 600 mg/L/hr.
[2024-11-27] MEDS: Ferrous Sulfate 324 MG TABLET.DR PO (19:34)
[2024-11-27] MEDS: Albumin Human 25 % 100 ML IV (19:34)
--- NOTE | 2024-11-27 20:15 | PC.NURSE ---
IV running albumin at this time. Only line #[id number] in hand. Pt refusing another IV attempt at this time. Causing delay in meds at this time.
[2024-11-27] MEDS: rifAXIMin 550 MG TABLET PO (22:19)
[2024-11-27] MEDS: Gabapentin 600 MG TABLET PO (22:20)
[2024-11-27] MEDS: Lactulose 20 GM/30 ML SOLUTION 30 GM PO (22:20)
[2024-11-28] VITALS (10 sets, daily range): BP systolic 95–117; BP diastolic 56–73; PULSE 75–108; RESP 16–18; TEMP 36.4–37.2; O2SAT 92–98
[2024-11-28] MEDS: 0.9 % Sodium Chloride Flush 3 ML SYRINGE IVFLUSH ×4 (00:57→21:33)
[2024-11-28] MEDS: Albumin Human 25 % 100 ML IV (00:57)
[2024-11-28] MEDS: Piperacillin Sodium/Tazobactam 3.375 GM in 0.9 % Sodium Chloride 50 ML IV ×4 (04:30→21:33)
[2024-11-28] MEDS: Enoxaparin Sodium 120 MG/0.8 ML SYRINGE 110 MG SUBCUT ×2 (04:38→17:40)
[2024-11-28] MEDS: Acetaminophen 325 MG TABLET 650 MG PO (04:40)
[2024-11-28] MEDS: vancomycin HCL 1,500 MG in 0.9 % Sodium Chloride 500 ML 333.33 MG IV (05:11)
[2024-11-28 07:52] LABS: Ammonia 82 umol/L (13-55); Hematocrit 30.5 % (42.0-52.0); Hemoglobin 10.2 g/dl (14.0-18.0); Mean Corpuscular HGB Conc 33.4 g/dl (31.0-36.0); Mean Corpuscular Hemoglobin 30.9 pg (27.0-33.0); Mean Corpuscular Volume 92.4 fL (80.0-98.0); Mean Platelet Volume 9.7 fL (9.4-12.4); Red Cell Distribution Width 16.2 % (11.0-16.0)
[2024-11-28 07:53] LABS: Platelet Count 65 X10*3/uL (160-400)
[2024-11-28 08:18] LABS: Alanine Aminotransferase 16 U/L (0-40); Albumin Level 2.4 g/dL (3.5-5.0); Alkaline Phosphatase 166 U/L (39-117); Anion Gap 9 (12-20); Aspartate Amino Transferase 30 U/L (5-37); Bilirubin Total 2.2 mg/dL (0.0-1.0); Blood Urea Nitrogen 6 mg/dL (9-16); Calcium 7.8 mg/dL (8.4-10.2); Carbon Dioxide 29 mmol/L (22-29); Chloride 101 mmol/L (96-108); Creatinine Clr Calc Pharmacy 138.4; Estimated Glomerular Filt Rate > 60; Glucose Random 289 mg/dL (60-115); Magnesium 1.5 mg/dL (1.6-2.6); Sodium 136 mmol/L (135-145); Total Protein 5.6 g/dL (6.5-8.0)
--- NOTE | 2024-11-28 08:57 | MHC.CM.PN ---
CM met with Patient at bedside and addressed IMM with him, providing Patient with the original and a copy has been placed on the chart. [place], uses a walker, and gets his Methadone from [facility]. Patient's dc goal is to go to [facility] again and CM has initiated and will follow for dc planning. PCP is Dr. Maria Dolores Schmitz and HCP is Niece/Chantel. Patient is likely to require BLS transport to [facility]
[2024-11-28] MEDS: rifAXIMin 550 MG TABLET PO ×2 (10:58→21:32)
[2024-11-28] MEDS: Spironolactone 25 MG TABLET 50 MG PO (10:58)
[2024-11-28] MEDS: Ferrous Sulfate 324 MG TABLET.DR PO (10:58)
[2024-11-28] MEDS: Magnesium Oxide 400 MG TABLET PO ×2 (10:59→17:40)
[2024-11-28] MEDS: Potassium Chloride ER 20 MEQ TAB.ER.PRT 40 MEQ PO (10:59)
[2024-11-28] MEDS: Gabapentin 600 MG TABLET PO ×2 (10:59→21:32)
[2024-11-28] MEDS: Furosemide 40 MG/4 ML VIAL IVPUSH (11:01)
[2024-11-28] MEDS: Lactulose 20 GM/30 ML SOLUTION 30 GM PO ×2 (11:07→15:20)
--- NOTE | 2024-11-28 11:37 | HO.WOUND ---
Wound Consult: Initial 69yr old?[place] [facility] See progress notes and H&P for detailed history.? Wound consult placed for Bilateral Lower Legs and groin area.? Patient agreeable to assessment and photo documentation.? Meat Puller in use during my consultation. Of note significant penile swelling noted - the patient report it has improved since admission -he has Urology consult in place will defer to them for swelling. The groin and scrotum are noted for MASD patient reports he wears a brief normally at home. Groin, scrotum and penis Etiology: ??MASD Wound Bed: red pink improving tissue scattered areas of tissue loss Drainage / Odor: scant serosang Edges: ? mirrored Kathleen wound: ?intact No Induration, Fluctuance or Warmth noted Pain: pain reported Goals of Treatment: ? Triad to treat topical tissue and defer to Urology Buttock and sacrum assessed - no injury noted remains intact. Bilateral Lower Legs Etiology: ?Lichenification with venous wounds Wound Bed: Dark thickened dry scaling tissue - with scattered areas of open tissue Drainage / Odor: scant serosang Edges: ?attached Kathleen wound: ?intact No Induration, Fluctuance or Warmth noted Pain: denies pain and itching at this time - reports his legs have been this way for a long time per his statement Goals of Treatment: Provider to order Ammonium Lactate Durafiber to open wound beds Recommendations: 1. Turn and Reposition every 2 hours and as needed for patient comfort.? Use pillows or wedges to support off loading positions. 2. Off Load all bony prominences with use of pillows and heel boots if needed.? Apply Preventative foams where needed. ? 3. Monitor for incontinence and moisture control, use barrier creams when needed for prevention and treatment. 4. Provide adequate and supplemental nutrition.? 5. Order low air loss mattress. 6. When applicable maintain blood glucose levels per Providers order. Bilateral Lower Legs - Cleanse with Simona spray, wipe clean. Apply Ammonium Lactate cream per provider orders. Cover wound wound beds with durafiber AG, dry gauze and wrap. Change every other day. Groin, Scrotum and Penis - Cleanse with PH balance spray or wipes, pat dry. ?Apply thin layer of barrier cream to affected area.? Apply twice daily and Reapply thin layer PRN after each episode of incontinence. Re-consult wound care Nurse for wound deterioration or wound changes.
--- NOTE | 2024-11-28 11:48 | HO.ADDICTCON ---
History of Present Illness Date of Service: 11/28/2024 Chief Complaint: Portal vein thrombosus Reason for Consult: AUD and OUD Sources of Information: patient interviewed and chart reviewed HPI Narrative: Patient is a 69 year old Macedonian speaking male with history of alcohol and opiate use. 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 Currently admitted with sepsis and pyelonephritis. Today patient reports he was discharged from [facility] about 2 months ago and he did not follow up at [facility]. 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 Also reporting 5 beers daily. When asked about not following up with [facility], he states I don't know, I just don't want to be on methadone . Again inconsistent with this report as he told RN that he wishes to resume methadone at 40mg QD and reported to t/w that he did not want to resume, but was open to a taper. He reports withdrawal sx, including back pain and teary eyes . He appears uncomfortable, frequently moving in bed. Review of Systems Constitutional: Reports as per HPI Diagnostics Vital Signs (24Hr): Vital Signs - 24 hr 11/27/24 12:40 11/27/24 13:59 11/27/24 15:45 Temperature 96.9 F 99.0 F Pulse Rate 96 119 H 96 Respiratory Rate 20 20 16 Blood Pressure 117/76 111/74 106/68 Pulse Oximetry 93 93 94 Oxygen Delivery Method Room Air Room Air Room Air 11/27/24 17:06 11/27/24 19:03 11/27/24 21:43 Temperature 98.8 F Pulse Rate 121 H 109 H 106 H Respiratory Rate 17 15 17 Blood Pressure 124/83 129/76 120/68 Pulse Oximetry 96 94 95 Oxygen Delivery Method Room Air Room Air Room Air 11/28/24 00:00 11/28/24 04:00 11/28/24 07:01 Temperature 98.9 F 98.9 F 97.5 F Pulse Rate 88 105 H 75 Respiratory Rate 16 16 16 Blood Pressure 102/58 L 95/58 L 105/62 Pulse Oximetry 98 94 95 Oxygen Delivery Method Room Air Room Air Room Air 11/28/24 11:01 11/28/24 11:08 Temperature 97.5 F Pulse Rate 101 H Respiratory Rate 16 Blood Pressure 99/57 L 113/73 Pulse Oximetry 95 Oxygen Delivery Method Room Air BMI result Body Mass Index 38.4 Labs 11/28/24 07:26 11/28/24 07:26 Labs: Laboratory Results - last 48 hr 11/27/24 11/27/24 11/27/24 11:04 11:30 13:27 WBC 3.3 L RBC 3.95 L Hgb 12.2 L Hct 37.4 L MCV 94.7 MCH 30.9 MCHC 32.6 RDW 16.0 Plt Count 65 L MPV 10.3 Immature Gran % (Auto) 0.3 Neut % (Auto) 76.7 H Lymph % (Auto) 12.4 L Blackford % (Auto) 8.2 Eos % (Auto) 1.5 Baso % (Auto) 0.9 Lymph # (Auto) 0.4 L Blackford # (Auto) 0.3 Eos # (Auto) 0.1 Baso # (Auto) 0.0 Abs Immat Gran (auto) 0.01 Absolute Neuts (auto) 2.5 Absolute Nucleated RBC 0.000 Nucleated RBC % (auto) 0.0 PT 15.1 H INR 1.3 H APTT Sodium 133 L Potassium 4.1 Chloride 97 Carbon Dioxide 26 Anion Gap 14 BUN 7 L Creatinine 0.63 Estim Creat Clear Calc 126.2 Estimated GFR > 60 Random Glucose 338 H Lactic Acid 3.3 H* Lactic Acid F/U @ 2Hr 2.5 H* Lactic Acid F/U @ 4Hr Calcium 8.2 L Magnesium 1.6 Total Bilirubin 2.0 H AST 46 H ALT 32 Alkaline Phosphatase 242 H Ammonia 74 H B-Natriuretic Peptide 80 Total Protein 6.8 Albumin 2.5 L Lipase 25 Urine Color Dark Yellow Urine Appearance Cloudy Urine pH 5.5 Ur Specific Orchard 1.020 Urine Protein Trace Urine Glucose (UA) >=1000 H Urine Ketones Trace Urine Blood Small (1+) H Urine Nitrite Positive H Ur Leukocyte Esterase Moderate (2+) H Urine RBC 3-5 H Urine WBC 11-20 Ur Squamous Epith Cells 0-2 Urine Bacteria 4+ Hyaline Casts 0-2 Urine Opiates Screen POSITIVE H Ur Buprenorphine Scrn Not Detected Ur Oxycodone Screen Not Detected Urine Methadone Screen Not Detected Urine Fentanyl Screen POSITIVE H Ur Barbiturates Screen Not Detected Ur Phencyclidine Scrn Not Detected Ur Amphetamines Screen Not Detected U Benzodiazepines Scrn Not Detected Urine Cocaine Screen Not Detected U Marijuana (THC) Screen Not Detected Ethyl Alcohol 51 11/27/24 11/27/24 11/28/24 15:48 17:05 07:26 WBC 3.5 L 2.0 L RBC 4.04 L 3.30 L Hgb 12.6 L 10.2 L Hct 37.2 L 30.5 L MCV 92.1 92.4 MCH 31.2 30.9 MCHC 33.9 33.4 RDW 15.9 16.2 H Plt Count 81 L 65 L MPV 10.3 9.7 Immature Gran % (Auto) Neut % (Auto) Lymph % (Auto) Blackford % (Auto) Eos % (Auto) Baso % (Auto) Lymph # (Auto) [place] # (Auto) Eos # (Auto) Baso # (Auto) Abs Immat Gran (auto) Absolute Neuts (auto) Absolute Nucleated RBC 0.000 0.000 Nucleated RBC % (auto) 0.0 0.0 PT 14.3 H INR 1.2 H APTT 24.0 L Sodium 136 Potassium 3.0 L D Chloride 101 Carbon Dioxide 29 Anion Gap 9 L BUN 6 L Creatinine 0.55 Estim Creat Clear Calc 138.4 Estimated GFR > 60 Random Glucose 289 H Lactic Acid Lactic Acid F/U @ 2Hr Lactic Acid F/U @ 4Hr 2.3 H* Calcium 7.8 L Magnesium 1.5 L Total Bilirubin 2.2 H AST 30 ALT 16 Alkaline Phosphatase 166 H Ammonia 82 H B-Natriuretic Peptide Total Protein 5.6 L Albumin 2.4 L Lipase Urine Color Urine Appearance Urine pH Ur Specific Orchard Urine Protein Urine Glucose (UA) Urine Ketones Urine Blood Urine Nitrite Ur Leukocyte Esterase Urine RBC Urine WBC Ur Squamous Epith Cells Urine Bacteria Hyaline Casts Urine Opiates Screen Ur Buprenorphine Scrn Ur Oxycodone Screen Urine Methadone Screen Urine Fentanyl Screen Ur Barbiturates Screen Ur Phencyclidine Scrn Ur Amphetamines Screen U Benzodiazepines Scrn Urine Cocaine Screen U Marijuana (THC) Screen Ethyl Alcohol Mental Status Exam Mental Status Exam Level of Consciousness: Awake, Appropriate and Alert Patient Behavior: Appropriate and Talkative Affect Description: Calm Speech Pattern: Clear Hallucinations: None Thought Process: Intact Judgement: Fair Medications Medications Current Medications Acetaminophen (Acetaminophen 325 Mg Tablet) 650 mg PO Q6H PRN PRN Reason: Pain, Mild 1-3,fever,headache Last Admin: 11/28/24 04:40 Dose: 650 mg Calcium Carbonate (Calcium Carbonate 750 Mg Tab.Chew) 750 mg PO Q4H PRN PRN Reason: Heartburn Enoxaparin Sodium (Enoxaparin Sodium 120 Mg/0.8 Ml Syringe) 110 mg SUBCUT Q12H [facility] Last Admin: 11/28/24 04:38 Dose: 110 mg Ferrous Sulfate (Ferrous Sulfate 324 Mg Tablet.Dr) 324 mg PO DAILY [facility] Last Admin: 11/28/24 10:58 Dose: 324 mg Furosemide (Furosemide 40 Mg/4 Ml Vial) 40 mg IVPUSH BID@0900,1800 [facility]; Protocol Stop: 11/28/24 18:01 Last Admin: 11/28/24 11:01 Dose: 40 mg Gabapentin (Gabapentin 600 Mg Tablet) 600 mg PO BID [facility] Last Admin: 11/28/24 10:59 Dose: 600 mg Vancomycin HCl 1,500 mg/ (Sodium Chloride) 500 mls @ 333.333 mls/hr IV Q12H [facility] Last Infusion: 11/28/24 08:20 Dose: Infused Piperacillin Sod/Tazobactam (Sod 3.375 gm/ Sodium Chloride) 50 mls @ 100 mls/hr IV Q6H [facility] Last Admin: 11/28/24 10:58 Dose: 100 mls/hr Lactic Acid (Ammonium Lactate 12 % Cream 140 Gm Tube) 1 appl TOPICAL BID [facility]; Protocol Lactulose (Lactulose 20 Gm/30 Ml Solution) 30 gm PO TID [facility] Last Admin: 11/28/24 11:07 Dose: 30 gm Magnesium Hydroxide (Milk Of Magnesia 30 Ml Oral.Susp) 30 ml PO DAILY PRN PRN Reason: Constipation Magnesium Oxide (Magnesium Oxide 400 Mg Tablet) 400 mg PO BIDPC [facility] Last Admin: 11/28/24 10:59 Dose: 400 mg Melatonin (Melatonin 3 Mg Tablet) 6 mg PO BEDTIME PRN PRN Reason: Insomnia Methadone HCl (Methadone Hcl 20 Mg/2 Ml Oral.Conc) 20 mg PO ONCE ONE Stop: 11/29/24 08:01 Nystatin (Nystatin Powder 15 Gm Bottle) 1 appl TOPICAL TID [facility]; Protocol Last Admin: 11/27/24 22:52 Dose: Not Given Pharmacy Consult (Consult Rx Vancomycin Dosing) 1 each MISCELLANE DAILY PRN PRN Reason: Consult order Rifaximin (Rifaximin 550 Mg Tablet) 550 mg PO BID [facility] Last Admin: 11/28/24 10:58 Dose: 550 mg Sodium Chloride (0.9 % Sodium Chloride Flush 3 Ml Syringe) 3 ml IVFLUSH QSHIFT [facility] Last Admin: 11/28/24 11:00 Dose: 3 ml Spironolactone (Spironolactone 25 Mg Tablet) 50 mg PO DAILY [facility]; Protocol Last Admin: 11/28/24 10:58 Dose: 50 mg Allergies Allergies Allergy/AdvReac Type Severity Reaction Status Date / Time No Known Allergies Allergy Verified 11/27/24 09:53 [No Known Allergies*] Assessment & Plan Assessment & Plan (1) Opioid use disorder: Status: Acute Code(s): F11.90 - Opioid use, unspecified, uncomplicated Assessment and Plan: open to methadone taper as he ultimately stated he does not wish to remain on methadone will start at 25mg today, decrease by 5mg daily as tolerated by patient, until discontinued will continue to follow and will restart methadone should patient change his mind Total time managing care of this patient today _30___ minutes. PMFSH Past Medical History Medical History Portal vein thrombosis Opioid use disorder Alcohol use disorder Perforated gallbladder Cirrhosis Anemia Ascites Anasarca Pancytopenia Edema of both lower legs Elevated liver enzymes Polysubstance abuse Splenomegaly Pancytopenia Portal vein thrombosis HTN (hypertension) Surgical History Surgical History S/P TIPS (transjugular intrahepatic portosystemic shunt) Social History Social History Household Members: None Household Members Other:: Patient is homeless. Stays with friends at their apartment Housing: Homeless Are you a primary senior care manager to a significant other at home: No Do you presently have visiting nurse or other home services: No Unable to assess alcohol history related to: Unable to respond Alcohol intake: current Alcohol intake frequency: 3 or more drinks per day Alcohol type: beer Comment: 1:1 sitter Patient Tobacco Use Status: Current everyday Tobacco user Tobacco use type: Cigarette Cigarette Packs Per Day: 0.25 Smoked in Last 30 Days: Yes e-Cigarette/Vaping Use: Never Used Patient Interested in Nicotine Replacement: No Patient Given Instructions on How to Stop Smoking: No Second Hand Smoke Exposure: Yes Use of substances other than those prescribed or required for medical reasons: Yes Substance Use Type: Heroin Currently Displaying Signs/Symptoms of Drug Intoxication Withdrawal: No Have you been hit, kicked, punched, or otherwise hurt by someone within the past year? If so, by whom?: No Do you feel safe in your current relationship?: Yes Is there a partner from a previous relationship who is making you feel unsafe now?: No Are you made to feel afraid or neglected: No Advance Directives: Yes Advance Directives on File: Yes Advance Directives Date on File: 08/22/22 Do you have a plan to hurt others: No Plan Recently lost weight without trying: Unsure Eating poorly because of decreased appetite: No Nutrition Risks: No Nutritional Risk Poor oral hygiene: Yes service: No Current occupational status: retired Current occupation: rt handed
--- NOTE | 2024-11-28 11:49 | HO.WOUND ---
Wound Consult: Initial 69yr old?male admitted to [facility] [place] on 11/27/24- See progress notes and H&P for detailed history.? Wound consult placed for Bilateral Lower Legs and groin area.? Patient agreeable to assessment and photo documentation.? Jumpbasting Canvas Baster in use during my consultation. Of note significant penile swelling noted - the patient report it has improved since admission -he has Urology consult in place will defer to them for swelling. The groin and scrotum are noted for MASD patient reports he wears a brief normally at home. Groin, scrotum and penis Etiology: ??MASD Wound Bed: red pink improving tissue scattered areas of tissue loss Drainage / Odor: scant serosang Edges: ? mirrored Kathleen wound: ?intact No Induration, Fluctuance or Warmth noted Pain: pain reported Goals of Treatment: ? Triad to treat topical tissue and defer to Urology Buttock and sacrum assessed - no injury noted remains intact. Bilateral Lower Legs Etiology: ?Lichenification with venous wounds Wound Bed: Dark thickened dry scaling tissue - with scattered areas of open tissue Drainage / Odor: scant serosang Edges: ?attached Kathleen wound: ?intact No Induration, Fluctuance or Warmth noted Pain: denies pain and itching at this time - reports his legs have been this way for a long time per his statement Goals of Treatment: Provider to order Ammonium Lactate Durafiber to open wound beds Dry stable scabs noted to hand and forearm - no topical interventions needed at this time. Recommendations: 1. Turn and Reposition every 2 hours and as needed for patient comfort.? Use pillows or wedges to support off loading positions. 2. Off Load all bony prominences with use of pillows and heel boots if needed.? Apply Preventative foams where needed. ? 3. Monitor for incontinence and moisture control, use barrier creams when needed for prevention and treatment. 4. Provide adequate and supplemental nutrition.? 5. Order low air loss mattress. 6. When applicable maintain blood glucose levels per Providers order. Bilateral Lower Legs - Cleanse with Simona spray, wipe clean. Apply Ammonium Lactate cream per provider orders. Cover wound wound beds with durafiber AG, dry gauze and wrap. Change every other day. Groin, Scrotum and Penis - Cleanse with PH balance spray or wipes, pat dry. ?Apply thin layer of barrier cream to affected area.? Apply twice daily and Reapply thin layer PRN after each episode of incontinence. Re-consult wound care Nurse for wound deterioration or wound changes.
--- NOTE | 2024-11-28 12:08 | PM.GICN ---
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 Gastroenterology has been consulted for PVT, SVT and SMA branch thrombosis. Pt well known to our service. Was seen in office last month when he was in rehab in [place]. Reports that after discharge from rehab he has been houseless and living in his car. His nephew was not able to take him in due to personal issues. Has relapsed and drinking 4-6 drinks per day. He was also unable to confirm what medications he had been taking. Main reason to come in for severe pain and swelling in both legs as well as scrotum with painful urination. Denies hx of trauma or unprotected sexual intercourse. Also reports abdominal pain without nausea vomiting. On presentation to ER he was noted to have tachycardia with soft pressures. Labs with elevated lactate. Worsening pancytopenia and elevated LFTs. Renal function normal. CT abd/pel concerning for multiple splanchnic vein thrombosis as above. Also shows ? gas in scrotum. Dry weight is close to 200 lb, and patient is presenting with 230 lb this admission. Review of Systems Review of Systems: Yes all other systems are reviewed and are negative [facility] Past Medical History Medical History Portal vein thrombosis Opioid use disorder Alcohol use disorder Perforated gallbladder Cirrhosis Anemia Ascites Anasarca Pancytopenia Edema of both lower legs Elevated liver enzymes Polysubstance abuse Splenomegaly Pancytopenia Portal vein thrombosis HTN (hypertension) Surgical History Surgical History S/P TIPS (transjugular intrahepatic portosystemic shunt) Social History Social History Household Members: None Household Members Other:: Patient is homeless. Stays with friends at their apartment Housing: Homeless Are you a primary healthcare sales representative to a significant other at home: No Do you presently have visiting nurse or other home services: No Unable to assess alcohol history related to: Unable to respond Alcohol intake: current Alcohol intake frequency: 3 or more drinks per day Alcohol type: beer Comment: 1:1 sitter Patient Tobacco Use Status: Current everyday Tobacco user Tobacco use type: Cigarette Cigarette Packs Per Day: 0.25 Smoked in Last 30 Days: Yes e-Cigarette/Vaping Use: Never Used Patient Interested in Nicotine Replacement: No Patient Given Instructions on How to Stop Smoking: No Second Hand Smoke Exposure: Yes Use of substances other than those prescribed or required for medical reasons: Yes Substance Use Type: Heroin Currently Displaying Signs/Symptoms of Drug Intoxication Withdrawal: No Have you been hit, kicked, punched, or otherwise hurt by someone within the past year? If so, by whom?: No Do you feel safe in your current relationship?: Yes Is there a partner from a previous relationship who is making you feel unsafe now?: No Are you made to feel afraid or neglected: No Advance Directives: Yes Advance Directives on File: Yes Advance Directives Date on File: 08/22/22 Do you have a plan to hurt others: No Plan Recently lost weight without trying: Unsure Eating poorly because of decreased appetite: No Nutrition Risks: No Nutritional Risk Poor oral hygiene: Yes service: No Current occupational status: retired Current occupation: rt handed Meds Allergies Allergy/AdvReac Type Severity Reaction Status Date / Time No Known Allergies Allergy Verified 11/27/24 09:53 [No Known Allergies*] Active Medications: Current Medications Acetaminophen (Acetaminophen 325 Mg Tablet) 650 mg PO Q6H PRN PRN Reason: Pain, Mild 1-3,fever,headache Last Admin: 11/28/24 04:40 Dose: 650 mg Calcium Carbonate (Calcium Carbonate 750 Mg Tab.Chew) 750 mg PO Q4H PRN PRN Reason: Heartburn Enoxaparin Sodium (Enoxaparin Sodium 120 Mg/0.8 Ml Syringe) 110 mg SUBCUT Q12H [facility] Last Admin: 11/28/24 04:38 Dose: 110 mg Ferrous Sulfate (Ferrous Sulfate 324 Mg Tablet.) 324 mg PO DAILY [facility] Last Admin: 11/28/24 10:58 Dose: 324 mg Furosemide (Furosemide 40 Mg/4 Ml Vial) 40 mg IVPUSH BID@0900,1800 [facility]; Protocol Stop: 11/28/24 18:01 Last Admin: 11/28/24 11:01 Dose: 40 mg Gabapentin (Gabapentin 600 Mg Tablet) 600 mg PO BID [facility] Last Admin: 11/28/24 10:59 Dose: 600 mg Vancomycin HCl 1,500 mg/ (Sodium Chloride) 500 mls @ 333.333 mls/hr IV Q12H [facility] Last Infusion: 11/28/24 08:20 Dose: Infused Piperacillin Sod/Tazobactam (Sod 3.375 gm/ Sodium Chloride) 50 mls @ 100 mls/hr IV Q6H [facility] Last Admin: 11/28/24 10:58 Dose: 100 mls/hr Lactic Acid (Ammonium Lactate 12 % Cream 140 Gm Tube) 1 appl TOPICAL BID [facility]; Protocol Lactulose (Lactulose 20 Gm/30 Ml Solution) 30 gm PO TID [facility] Last Admin: 11/28/24 11:07 Dose: 30 gm Magnesium Hydroxide (Milk Of Magnesia 30 Ml Oral.Susp) 30 ml PO DAILY PRN PRN Reason: Constipation Magnesium Oxide (Magnesium Oxide 400 Mg Tablet) 400 mg PO BIDPC [facility] Last Admin: 11/28/24 10:59 Dose: 400 mg Melatonin (Melatonin 3 Mg Tablet) 6 mg PO BEDTIME PRN PRN Reason: Insomnia Methadone HCl (Methadone Hcl 20 Mg/2 Ml Oral.Conc) 20 mg PO ONCE ONE Stop: 11/29/24 08:01 Nystatin (Nystatin Powder 15 Gm Bottle) 1 appl TOPICAL TID [facility]; Protocol Last Admin: 11/28/24 12:07 Dose: Not Given Pharmacy Consult (Consult Rx Vancomycin Dosing) 1 each MISCELLANE DAILY PRN PRN Reason: Consult order Rifaximin (Rifaximin 550 Mg Tablet) 550 mg PO BID [facility] Last Admin: 11/28/24 10:58 Dose: 550 mg Sodium Chloride (0.9 % Sodium Chloride Flush 3 Ml Syringe) [facility] Last Admin: 11/28/24 11:00 Dose: 3 ml Spironolactone (Spironolactone 25 Mg Tablet) 50 mg PO DAILY [facility]; Protocol Last Admin: 11/28/24 10:58 Dose: 50 mg Home Medications ?Medication ?Instructions ?Recorded ?Confirmed ?Last Taken ?Type gabapentin 600 mg tablet 600 mg PO BID 10/27/24 11/27/24 Unknown History lactulose 10 gram/15 mL oral 30 g PO TID 10/27/24 11/27/24 Unknown History solution (Enulose) Physical Exam Vital Signs: Vital Signs: Last Vital Signs Temp 97.5 F 11/28/24 11:08 Pulse 101 H 11/28/24 11:08 Resp 16 11/28/24 11:08 BP 113/73 11/28/24 11:08 Pulse Ox 95 11/28/24 11:08 O2 Del Method Room Air 11/28/24 11:08 BMI result Body Mass Index 38.4 malnourished, disheveled icteric abd soft, distended, nontender no overt resp distress b/l leg edema with chronic venous stasis changes and wounds A/Ox3, mild asterixis Results Labs 11/29/24 07:14 11/29/24 07:14 Labs: Short CBC 11/27/24 11/28/24 Range/Units 17:05 07:26 WBC 3.5 L 2.0 L (4.8-10.8) X10*3/uL Hgb 12.6 L 10.2 L (14.0-18.0) g/dl Hct 37.2 L 30.5 L (42.0-52.0) % Plt Count 81 L 65 L (160-400) X10*3/uL BMP 11/28/24 07:26 Sodium 136 Potassium 3.0 L D Chloride 101 Carbon Dioxide 29 BUN 6 L Creatinine 0.55 Calcium 7.8 L Liver Function 11/28/24 Range/Units 07:26 Total Bilirubin 2.2 H (0.0-1.0) mg/dL AST 30 (5-37) U/L ALT 16 (0-40) U/L Alkaline Phosphatase 166 H (39-117) U/L Albumin 2.4 L (3.5-5.0) g/dL Microbiology Microbiology Results: Microbiology 11/27/24 Unknown Urine clean catch - Clean Catch Midstream Urine Culture - Preliminary Culture in progress. 11/27/24 11:04 Blood - Venous Blood Culture - Preliminary Prelim: GNR Gram Stain only Assessment and Plan (1) Cellulitis of scrotum: Status: Acute (2) Portal vein thrombosis: Status: Chronic (3) Homeless: Status: Acute (4) S/P TIPS (transjugular intrahepatic portosystemic shunt): Status: Acute (5) Alcohol use disorder: Status: Acute (6) Opioid use disorder: Status: Acute (7) Cirrhosis: Qualifiers: Hepatic cirrhosis type: alcoholic cirrhosis Ascites presence: with ascites Qualified Code(s): K70.31 - Alcoholic cirrhosis of liver with ascites Status: Acute Plan Decompensated cirrhosis - MELD Na 18 - Child Neal Class B Pt with PMH of etOH and opiate use disorder that has led to decompensated cirrhosis with ascites, variceal bleeding s/p TIPS and BRTO, PV thrombosis not on anticoagulation, listed and taken off transplant list 2020 ([facility]) due to ongoing substance use, houselessness, who is here for leg pain and scrotal pain found to have sepsis 2/2 UTI and scrotal infection. 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 Please do not hesitate to reach out for any questions or concerns. Procedures Date of Service Date of Service: 11/28/24
[2024-11-28] MEDS: methADONE HCl 20 MG/2 ML ORAL.CONC 25 MG PO (12:17)
--- NOTE | 2024-11-28 13:04 | MHC.CM.PN ---
PT is recommending STR and CM will follow.
--- NOTE | 2024-11-28 13:09 | P.CNUR_ITS ---
History of Present Illness Consult details Consult date: 11/28/24 Narrative: 69-year-old male with a PMH significant for?HTN, hepatic cirrhosis complicated by pancytopenia and portal vein thrombosis previously anticoagulated with Lovenox, hx of variceal bleeding s/p tips, polysubstance use, alcohol use disorder, GERD, and long hx of medication noncompliance who presents to the ED with?swelling and pain in legs and scrotum x3 days. Continues to drink despite cirrhosis and s/p tips. h/o polysubstance abuse. per chart heroin, last used yesterday. Per chart Pt currently homeless and living out of a car and with friends. CTAP/w/IV contrast--likely cellulitis of scrotum without evidence of abscess. Exam - scrotom, erthema, without induration or evidence of collection. Review of Systems 2 Review of Systems: 10 point ROS --Negative other then state d in [facility] Past Medical History Medical History Portal vein thrombosis Opioid use disorder Alcohol use disorder Perforated gallbladder Cirrhosis Anemia Ascites Anasarca Pancytopenia Edema of both lower legs Elevated liver enzymes Polysubstance abuse Splenomegaly Pancytopenia Portal vein thrombosis HTN (hypertension) Surgical History Surgical History S/P TIPS (transjugular intrahepatic portosystemic shunt) Social History Social History Household Members: None Household Members Other:: Patient is homeless. Stays with friends at their apartment Housing: Homeless Are you a primary child care provider to a significant other at home: No Do you presently have visiting nurse or other home services: No Unable to assess alcohol history related to: Unable to respond Alcohol intake: current Alcohol intake frequency: 3 or more drinks per day Alcohol type: beer Comment: 1:1 sitter Patient Tobacco Use Status: Current everyday Tobacco user Tobacco use type: Cigarette Cigarette Packs Per Day: 0.25 Smoked in Last 30 Days: Yes e-Cigarette/Vaping Use: Never Used Patient Interested in Nicotine Replacement: No Patient Given Instructions on How to Stop Smoking: No Second Hand Smoke Exposure: Yes Use of substances other than those prescribed or required for medical reasons: Yes Substance Use Type: Heroin Currently Displaying Signs/Symptoms of Drug Intoxication Withdrawal: No Have you been hit, kicked, punched, or otherwise hurt by someone within the past year? If so, by whom?: No Do you feel safe in your current relationship?: Yes Is there a partner from a previous relationship who is making you feel unsafe now?: No Are you made to feel afraid or neglected: No Advance Directives: Yes Advance Directives on File: Yes Advance Directives Date on File: 08/22/22 Do you have a plan to hurt others: No Plan Recently lost weight without trying: Unsure Eating poorly because of decreased appetite: No Nutrition Risks: No Nutritional Risk Poor oral hygiene: Yes service: No Current occupational status: retired Current occupation: rt [employer] Allergies Allergy/AdvReac Type Severity Reaction Status Date / Time No Known Allergies Allergy Verified 11/27/24 09:53 [No Known Allergies*] Active Medications: Current Medications Acetaminophen (Acetaminophen 325 Mg Tablet) 650 mg PO Q6H PRN PRN Reason: Pain, Mild 1-3,fever,headache Last Admin: 11/28/24 04:40 Dose: 650 mg Calcium Carbonate (Calcium Carbonate 750 Mg Tab.Chew) 750 mg PO Q4H PRN PRN Reason: Heartburn Enoxaparin Sodium (Enoxaparin Sodium 120 Mg/0.8 Ml Syringe) 110 mg SUBCUT Q12H [facility] Last Admin: 11/28/24 04:38 Dose: 110 mg Ferrous Sulfate (Ferrous Sulfate 324 Mg Tablet.Dr) 324 mg PO DAILY [facility] Last Admin: 11/28/24 10:58 Dose: 324 mg Furosemide (Furosemide 40 Mg/4 Ml Vial) 40 mg IVPUSH BID@0900,1800 [facility]; Protocol Stop: 11/28/24 18:01 Last Admin: 11/28/24 11:01 Dose: 40 mg Gabapentin (Gabapentin 600 Mg Tablet) 600 mg PO BID [facility] Last Admin: 11/28/24 10:59 Dose: 600 mg Vancomycin HCl 1,500 mg/ (Sodium Chloride) 500 mls @ 333.333 mls/hr IV Q12H [facility] Last Infusion: 11/28/24 08:20 Dose: Infused Piperacillin Sod/Tazobactam (Sod 3.375 gm/ Sodium Chloride) 50 mls @ 100 mls/hr IV Q6H [facility] Last Infusion: 11/28/24 12:14 Dose: Infused Lactic Acid (Ammonium Lactate 12 % Cream 140 Gm Tube) 1 appl TOPICAL BID [facility]; Protocol Lactulose (Lactulose 20 Gm/30 Ml Solution) 30 gm PO TID [facility] Last Admin: 11/28/24 11:07 Dose: 30 gm Magnesium Hydroxide (Milk Of Magnesia 30 Ml Oral.Susp) 30 ml PO DAILY PRN PRN Reason: Constipation Magnesium Oxide (Magnesium Oxide 400 Mg Tablet) 400 mg PO BIDPC [facility] Last Admin: 11/28/24 10:59 Dose: 400 mg Melatonin (Melatonin 3 Mg Tablet) 6 mg PO BEDTIME PRN PRN Reason: Insomnia Methadone HCl (Methadone Hcl 20 Mg/2 Ml Oral.Conc) 20 mg PO ONCE ONE Stop: 11/29/24 08:01 Nystatin (Nystatin Powder 15 Gm Bottle) 1 appl TOPICAL TID [facility]; Protocol Last Admin: 11/28/24 12:07 Dose: Not Given Pharmacy Consult (Consult Rx Vancomycin Dosing) 1 each MISCELLANE DAILY PRN PRN Reason: Consult order Rifaximin (Rifaximin 550 Mg Tablet) 550 mg PO BID [facility] Last Admin: 11/28/24 10:58 Dose: 550 mg Sodium Chloride (0.9 % Sodium Chloride Flush 3 Ml Syringe) 3 ml IVFLUSH QSHIFT [facility] Last Admin: 11/28/24 11:00 Dose: 3 ml Spironolactone (Spironolactone 25 Mg Tablet) 50 mg PO DAILY [facility]; Protocol Last Admin: 11/28/24 10:58 Dose: 50 mg Home Medications ?Medication ?Instructions ?Recorded ?Confirmed ?Last Taken ?Type gabapentin 600 mg tablet 600 mg PO BID 10/27/24 11/27/24 Unknown History lactulose 10 gram/15 mL oral 30 g PO TID 10/27/24 11/27/24 Unknown History solution (Enulose) Physical Exam 2 Vital Signs: Vital Signs: Last Vital Signs Temp 97.5 F 11/28/24 11:08 Pulse 83 11/28/24 11:35 Resp 16 11/28/24 11:08 BP 113/73 11/28/24 11:08 Pulse Ox 95 11/28/24 11:08 O2 Del Method Room Air 11/28/24 11:08 BMI result Body Mass Index 38.4 Const: General: no acute distress Orientation/consciousness: patient oriented x3 HEENT: Head: Yes normocephalic and Yes atraumatic Neck: Neck: Yes normal visual inspection Chest: Chest palpation & inspection: normal inspection of the chest Resp: Effort & Inspection: normal respiratory effort GI: Inspection: Yes normal to inspection : Other: scrotom, erthema, without induration or evidence of collection. Scrotum: erythematous and scrotal swelling Neuro: General: patient oriented x3 Extrem: Right lower extremity: edema Left lower extremity: edema Psych: Appearance: grossly normal Affect: normal affect Results Labs 11/28/24 07:26 11/28/24 07:26 Labs: Abnormal lab results 11/27/24 11/27/24 11/27/24 Range/Units 13:27 15:48 17:05 WBC 3.5 L (4.8-10.8) X10*3/uL RBC 4.04 L (4.60-5.80) X10*6/uL Hgb 12.6 L (14.0-18.0) g/dl Hct 37.2 L (42.0-52.0) % RDW (11.0-16.0) % Plt Count 81 L (160-400) X10*3/uL PT 14.3 H (10.9-12.4) SEC INR 1.2 H (0.9-1.1) APTT 24.0 L (26.0-36.8) SEC Potassium (3.3-5.1) mmol/L Anion Gap (12-20) BUN (9-16) mg/dL Random Glucose (60-115) mg/dL Lactic Acid F/U @ 2Hr 2.5 H* (0.5-2.0) mmol/L Lactic Acid F/U @ 4Hr 2.3 H* (0.5-2.0) mmol/L Calcium (8.4-10.2) mg/dL Magnesium (1.6-2.6) mg/dL Total Bilirubin (0.0-1.0) mg/dL Alkaline Phosphatase (39-117) U/L Ammonia (13-55) umol/L Total Protein (6.5-8.0) g/dL Albumin (3.5-5.0) g/dL 11/28/24 Range/Units 07:26 WBC 2.0 L (4.8-10.8) X10*3/uL RBC 3.30 L (4.60-5.80) X10*6/uL Hgb 10.2 L (14.0-18.0) g/dl Hct 30.5 L (42.0-52.0) % RDW 16.2 H (11.0-16.0) % Plt Count 65 L (160-400) X10*3/uL PT (10.9-12.4) SEC INR (0.9-1.1) APTT (26.0-36.8) SEC Potassium 3.0 L D (3.3-5.1) mmol/L Anion Gap 9 L (12-20) BUN 6 L (9-16) mg/dL Random Glucose 289 H (60-115) mg/dL Lactic Acid F/U @ 2Hr (0.5-2.0) mmol/L Lactic Acid F/U @ 4Hr (0.5-2.0) mmol/L Calcium 7.8 L (8.4-10.2) mg/dL Magnesium 1.5 L (1.6-2.6) mg/dL Total Bilirubin 2.2 H (0.0-1.0) mg/dL Alkaline Phosphatase 166 H (39-117) U/L Ammonia 82 H (13-55) umol/L Total Protein 5.6 L (6.5-8.0) g/dL Albumin 2.4 L (3.5-5.0) g/dL Short CBC 11/27/24 11/28/24 Range/Units 17:05 07:26 WBC 3.5 L 2.0 L (4.8-10.8) X10*3/uL Hgb 12.6 L 10.2 L (14.0-18.0) g/dl Hct 37.2 L 30.5 L (42.0-52.0) % Plt Count 81 L 65 L (160-400) X10*3/uL BMP 11/28/24 07:26 Sodium 136 Potassium 3.0 L D Chloride 101 Carbon Dioxide 29 BUN 6 L Creatinine 0.55 Calcium 7.8 L Liver Function 11/28/24 Range/Units 07:26 Total Bilirubin 2.2 H (0.0-1.0) mg/dL AST 30 (5-37) U/L ALT 16 (0-40) U/L Alkaline Phosphatase 166 H (39-117) U/L Albumin 2.4 L (3.5-5.0) g/dL Urine 11/27/24 Range/Units 11:30 Urine Color Dark Yellow Urine Appearance Cloudy Urine pH 5.5 (5.0-9.0) Ur Specific Kamas 1.020 (1.005-1.025) Urine Protein Trace (Neg-Trace) mg/dL Urine Glucose (UA) >=1000 H (Negative) mg/dL Imaging Abdomen CT scan report/results: report reviewed and image reviewed CT scan - pelvis: report reviewed and image reviewed Additional studies: Date of Service: 11/27/24 Procedure(s): CT abdomen pelvis w IV con CLINICAL HISTORY: suprapubic erythema, swelling c f fourniers CT abdomen and pelvis with contrast Comparison: Reference was made to a prior CT scan report dated 12/24/2023 Findings: No consolidation or effusion. There is irregularity of the liver cortex and redistribution of liver volume compatible with cirrhosis. A TIPS is present. There is no focal liver lesion. The spleen is enlarged. There is a metallic opacity within the central spleen, most likely postprocedural. There is pancreatic volume loss. There is a small left kidney cyst there are foci of heterogeneity within the bilateral kidneys. There are nonocclusive thrombi within the proximal portal vein and within the splenic vein adjacent to the splenic hilum. There is also occlusive thrombus within a branch of the superior mesenteric vein. There are tiny gallstones within the gallbladder. The gallbladder is poorly distended. There is an internal biliary drain. Prior ventral hernia repair. No colitis or bowel obstruction. Colonic diverticulosis without diverticulitis. Unremarkable urinary bladder and prostate. Likely visualization of a normal appendix. There is edema of the soft tissues. There is particularly pronounced edema of the soft tissues of the scrotum. There is no abscess. There are several tiny pockets of gas within the soft tissues of the left hemiscrotum. No involvement of the perineum. There is a severe compression fracture at L1. There is increased density within the L1 vertebral body. There are chronic pars defects at L5 with grade 1 anterolisthesis of L5 on S1. There are chronic nonunited fractures of the left transverse processes of L2 and L3. IMPRESSION: 1. There are thrombi within portions of the the main portal vein, splenic vein and within a branch of the superior mesenteric vein. These were not mentioned on the prior report. 2. There is cirrhosis with portal venous hypertension. 3. There are foci of heterogeneity within the bilateral kidneys. Correlate with urinalysis to exclude pyelonephritis. 4. Cholelithiasis. 5. Particularly pronounced edema of the soft tissues of the scrotum suggesting possible cellulitis. Several tiny pockets of gas within the soft tissues of the left hemiscrotum. No evidence of abscess. No current evidence of peroneal involvement. 6. Severe compression fracture at L1 which may have a subacute component. Assessment and Plan (1) Cellulitis of scrotum: Status: Acute (2) Scrotal edema: Status: Acute (3) UTI (urinary tract infection): Status: Acute Plan Pt on IV abx, urine c/s gram negative rods, pending Keep scrotum elevated on towel FU US Scrotum tomorrow. Flomax 0.4mg qhs ordered. Procedures Date of Service Date of Service: 11/28/24
[2024-11-28 14:29] LABS: Vancomycin Random 16.5 mcg/mL (15-20)
--- NOTE | 2024-11-28 14:43 | HE.PHANOTE ---
RE: VANCO DOSING Trough came back as 16.5 mg/L which may become supratherapeutic for skin infection. Dose is decreased to 1000 mg q12h, next trough is scheduled for 11/29/24 @1400.
--- NOTE | 2024-11-28 14:58 | HO.PM.IMPN ---
Subjective Subjective Date of Service: 11/28/24 Interval History: denies abd or scrotal pain endorses leg swelling No hematemesis, hematochezia, or melena. Review of Systems Review of Systems: Yes all other systems are reviewed and are negative Physical Exam Vital Signs: Vital Signs: Last Vital Signs Temp 97.5 F 11/28/24 11:08 Pulse 83 11/28/24 11:35 Resp 16 11/28/24 11:08 BP 113/73 11/28/24 11:08 Pulse Ox 95 11/28/24 11:08 O2 Del Method Room Air 11/28/24 11:08 BMI result Body Mass Index 38.4 Gen: in no acute distress HEENT: sclera anicteric, moist mucus membranes Neck: supple Lungs: clear to auscultation bilaterally Heart: regular rate and rhythm, no murmurs Abd: soft, non-tender, non-distended : scrotal erythema and edema Ext: severe bilateral leg edema with chronic venous stasis changes/hyperkeratosis Skin: warm/well-perfused Neuro: alert and oriented x3, no focal findings; no asterixis Psych: appropriate affect Objective Data Active Medications Acetaminophen (Acetaminophen 325 Mg Tablet) 650 mg PO Q6H PRN PRN Reason: Pain, Mild 1-3,fever,headache Last Admin: 11/28/24 04:40 Dose: 650 mg Documented By: GRUPO Calcium Carbonate (Calcium Carbonate 750 Mg Tab.Chew) 750 mg PO Q4H PRN PRN Reason: Heartburn Enoxaparin Sodium (Enoxaparin Sodium 120 Mg/0.8 Ml Syringe) 110 mg SUBCUT Q12H [facility] Last Admin: 11/28/24 04:38 Dose: 110 mg Documented By: GRUPO Ferrous Sulfate (Ferrous Sulfate 324 Mg Tablet.) 324 mg PO DAILY [facility] Last Admin: 11/28/24 10:58 Dose: 324 mg Documented By: LISA Furosemide (Furosemide 40 Mg/4 Ml Vial) 40 mg IVPUSH BID@0900,1800 [facility]; Protocol Stop: 11/28/24 18:01 Last Admin: 11/28/24 11:01 Dose: 40 mg Documented By: LISA Gabapentin (Gabapentin 600 Mg Tablet) 600 mg PO BID [facility] Last Admin: 11/28/24 10:59 Dose: 600 mg Documented By: LISA Piperacillin Sod/Tazobactam (Sod 3.375 gm/ Sodium Chloride) 50 mls @ 100 mls/hr IV Q6H [facility] Last Infusion: 11/28/24 12:14 Dose: Infused Documented By: LISA Vancomycin HCl 1,000 mg/ (Sodium Chloride) 270 mls @ 270 mls/hr IV Q12H [facility] Lactic Acid (Ammonium Lactate 12 % Cream 140 Gm Tube) 1 appl TOPICAL BID [facility]; Protocol Lactulose (Lactulose 20 Gm/30 Ml Solution) 30 gm PO TID [facility] Last Admin: 11/28/24 11:07 Dose: 30 gm Documented By: LISA Magnesium Hydroxide (Milk Of Magnesia 30 Ml Oral.Susp) 30 ml PO DAILY PRN PRN Reason: Constipation Magnesium Oxide (Magnesium Oxide 400 Mg Tablet) 400 mg PO BIDPC [facility] Last Admin: 11/28/24 10:59 Dose: 400 mg Documented By: LISA Melatonin (Melatonin 3 Mg Tablet) 6 mg PO BEDTIME PRN PRN Reason: Insomnia Methadone HCl (Methadone Hcl 20 Mg/2 Ml Oral.Conc) 20 mg PO ONCE ONE Stop: 11/29/24 08:01 Nystatin (Nystatin Powder 15 Gm Bottle) 1 appl TOPICAL TID [facility]; Protocol Last Admin: 11/28/24 12:07 Dose: Not Given Documented By: LISA Non-Admin Reason: awaiting pharmacy to bring up Pharmacy Consult (Consult Rx Vancomycin Dosing) 1 each MISCELLANE DAILY PRN PRN Reason: Consult order Rifaximin (Rifaximin 550 Mg Tablet) 550 mg PO BID [facility] Last Admin: 11/28/24 10:58 Dose: 550 mg Documented By: LISA Sodium Chloride (0.9 % Sodium Chloride Flush 3 Ml Syringe) 3 ml IVFLUSH QSHIFT [facility] Last Admin: 11/28/24 11:00 Dose: 3 ml Documented By: LISA Spironolactone (Spironolactone 25 Mg Tablet) 50 mg PO DAILY [facility]; Protocol Last Admin: 11/28/24 10:58 Dose: 50 mg Documented By: LISA Labs 11/28/24 07:26 11/28/24 07:26 Labs: Laboratory Results - last 24 hr 11/27/24 11/27/24 11/28/24 15:48 17:05 07:26 MCV 92.1 92.4 MCH 31.2 30.9 MCHC 33.9 33.4 RDW 15.9 16.2 H Plt Count 81 L 65 L MPV 10.3 9.7 Absolute Nucleated RBC 0.000 0.000 Nucleated RBC % (auto) 0.0 0.0 PT 14.3 H INR 1.2 H APTT 24.0 L Anion Gap 9 L Estim Creat Clear Calc 138.4 Estimated GFR > 60 Random Glucose 289 H Lactic Acid F/U @ 4Hr 2.3 H* Calcium 7.8 L Magnesium 1.5 L Total Bilirubin 2.2 H AST 30 ALT 16 Alkaline Phosphatase 166 H Ammonia 82 H Total Protein 5.6 L Albumin 2.4 L Random Vancomycin 11/28/24 14:02 MCV MCH MCHC RDW Plt Count MPV Absolute Nucleated RBC Nucleated RBC % (auto) PT INR APTT Anion Gap Estim Creat Clear Calc Estimated GFR Random Glucose Lactic Acid F/U @ 4Hr Calcium Magnesium Total Bilirubin AST ALT Alkaline Phosphatase Ammonia Total Protein Albumin Random Vancomycin 16.5 Microbiology Microbiology Results: Microbiology 11/27/24 11:04 Blood Culture - Preliminary Blood - Venous No growth after 24 hours. 11/27/24 Unknown Urine Culture - Preliminary Urine clean catch - Clean Catch Midstream Culture in progress. 11/27/24 11:04 Blood Culture - Preliminary Blood - Venous Prelim: GNR Gram Stain only Assessment and Plan (1) Portal vein thrombosis: Status: Acute Plan 69yo M with decompensated HCV/EtOH cirrhosis, hx variceal bleeding s/p TIPS, hx portal venous thrombosis previously anticoagulated with enoxaparin, polysubstance abuse, medication noncompliance; presenting with worsening leg and scrotal swelling; found to have sepsis from scrotal cellulitis + pyelonephritis as well as new portal/splenic/superior mesenteric vein thrombosis; found to have GNR bacteremia portal, splenic, and superior mesenteric vein thrombosis - therapeutic enoxaparin, GI + Heme consults sepsis due to scrotal cellulitis and pyelonephritis and GNR bacteremia - continue vancomycin + piperacillin-tazobactam, follow BCx speciation + susceptibilities as well as UCx - Urology consulted, repeat scrotal US tomorrow decompensated HCV/EtOH cirrhosis with peripheral edema - IV furosemide, PO spironolactone; monitor electrolytes hypoMg hypoK - replete, recheck levels tomorrow hepatic encephalopathy - continue rifaximin and lactulose pancytopenia due to cirrhosis - monitor counts ROMAN - continue Fe PO neuropathic pain - gabapentin polysubstance abuse - Addiction Medicine consult; continue methadone - HBV immune from prior infection, recent HIV serology + HCV viral load negative VTE ppx - enoxaparin; caution with thrombocytopenia dispo - PT consulted, plan eventual STR In my clinical judgment, the patient requires continued inpatient hospitalization for the following reasons: IV ABX, IV diuretics, bacteremia Total time managing care of this patient today: 45 minutes. Quality Stroke Does the patient have a stroke diagnosis?: No VTE Prior VTE?: No VTE Risk Level:: Medical - moderate - high VTE Device Contraindication: Treatment Not Indicated VTE Drug Contraindication: N/A - Med Ordered
--- NOTE | 2024-11-28 15:11 | P.CNHO_ITS ---
Subjective - Subjective Chief complaint: Leg and scrotal swelling Patient: new to practice Consult date: 11/28/24 Primary Care Provider: Unknown Physician Water Rights Specialist Utilized?: No - Indonesian Speaking HPI - Consult Narrative Reason for consult: Portal vein thrombosis Narrative: Benton Souza is a 69 year old male with PMH significant for?HTN, hepatic cirrhosis complicated by pancytopenia and portal vein thrombosis previously anticoagulated with Lovenox, hx of variceal bleeding s/p tips, polysubstance use, alcohol use disorder, GERD, and long hx of medication noncompliance who presents to the ED with?swelling and pain in legs and scrotum x3 days. Pt reports pain and swelling so bad has been unable to move his legs or walk. No fever or chills. Denies shortness of breath. No chest pain/pressure, palpitations. Denies nausea, vomiting, abdominal pain. Continues to drink despite cirrhosis and s/p tips, 3-5 beers daily with last drink yesterday night. Also snorts heroin, last used yesterday. Pt currently homeless and living out of a car, has not been taking prescription medications for many months. Of note, pt with hx of portal vein thrombosis previously anticoagulated on Lovenox, though with long hx of medication noncompliance. Imaging on 07/31/2024 and again on 11/02/2024 showed patent portal and splenic veins. Patient denies any acute abdominal pain. He says his belly is chronically distended. He denies any pleuritic chest pain, shortness of breath or cough. Review of Systems - Constitutional Reports as per [facility] Medical History: Medical History (Last Reviewed 11/28/24 @ 16:09 by Ana Laura Montero MD) Alcohol use disorder Anasarca Anemia Ascites Cirrhosis Edema of both lower legs Elevated liver enzymes HTN (hypertension) Opioid use disorder Pancytopenia Pancytopenia Perforated gallbladder Polysubstance abuse Portal vein thrombosis Portal vein thrombosis Splenomegaly Surgical History: Surgical History (Last Reviewed 11/28/24 @ 16:09 by Ana Laura Montero MD) S/P TIPS (transjugular intrahepatic portosystemic shunt) Social History: Social History (Last Reviewed 11/28/24 @ 16:09 by Ana Laura Montero MD) Living Situation History: Household Members: None Household Members Other:: Patient is homeless. Stays with friends at their apartment Housing: Homeless Are you a primary managed care analyst to a significant other at home: No Do you presently have visiting nurse or other home services: No Alcohol History: Unable to assess alcohol history related to: Unable to respond Alcohol History Details: 1. How often do you have a drink containing alcohol?: e. 4 or more times a week 2. How many drinks containing alcohol do you have on a typical day when you are drinking?: c. 5 or 6 3. How often do you have six or more drinks on one occasion?: a. Never AUDIT-C Alcohol total score: 6 Currently Displaying Signs/Symptoms of Alcohol Withdrawal: No Tobacco History: Patient Tobacco Use Status: Current everyday Tobacco Tobacco use type: Cigarette Cigarette Packs Per Day: 0.25 Smoked in Last 30 Days: Yes e-Cigarette/Vaping Use: Never Used Patient Interested in Nicotine Replacement: No Patient Given Instructions on How to Stop Smoking: No Second Hand Smoke Exposure: Yes Substance Use History: Use of substances other than those prescribed or required for medical reasons : Yes Substance Use Type: Heroin Currently Displaying Signs/Symptoms of Drug Intoxication Withdrawal: No Domestic Abuse History: Have you been hit, kicked, punched, or otherwise hurt by someone within the past year? If so, by whom?: No Do you feel safe in your current relationship?: Yes Is there a partner from a previous relationship who is making you feel unsafe now?: No Are you made to feel afraid or neglected: No Advance Directives: Advance Directives: Yes Advance Directives on File: Yes Advance Directives Date on File: 08/22/22 Homicidal Assessment: Do you have a plan to hurt others: No Plan Nutrition Assessment: Recently lost weight without trying: Unsure Eating poorly because of decreased appetite: No Nutrition Risks: No Nutritional Risk Poor oral hygiene: Yes Occupation Assessmet: service: No Current occupational status: retired Current occupation: rt handed Home Medications and Allergies Current Medications: Current Medications Acetaminophen (Acetaminophen 325 Mg Tablet) 650 mg PO Q6H PRN PRN Reason: Pain, Mild 1-3,fever,headache Last Admin: 11/28/24 04:40 Dose: 650 mg Calcium Carbonate (Calcium Carbonate 750 Mg Tab.Chew) 750 mg PO Q4H PRN PRN Reason: Heartburn Enoxaparin Sodium (Enoxaparin Sodium 120 Mg/0.8 Ml Syringe) 110 mg SUBCUT Q12H [facility] Last Admin: 11/28/24 04:38 Dose: 110 mg Ferrous Sulfate (Ferrous Sulfate 324 Mg Tablet.Dr) 324 mg PO DAILY [facility] Last Admin: 11/28/24 10:58 Dose: 324 mg Furosemide (Furosemide 40 Mg/4 Ml Vial) 40 mg IVPUSH BID@0900,1800 [facility]; Protocol Stop: 11/28/24 18:01 Last Admin: 11/28/24 11:01 Dose: 40 mg Gabapentin (Gabapentin 600 Mg Tablet) 600 mg PO BID [facility] Last Admin: 11/28/24 10:59 Dose: 600 mg Piperacillin Sod/Tazobactam (Sod 3.375 gm/ Sodium Chloride) 50 mls @ 100 mls/hr IV Q6H [facility] Last Infusion: 11/28/24 12:14 Dose: Infused Vancomycin HCl 1,000 mg/ (Sodium Chloride) 270 mls @ 270 mls/hr IV Q12H [facility] Lactic Acid (Ammonium Lactate 12 % Cream 140 Gm Tube) 1 appl TOPICAL BID [facility]; Protocol Lactulose (Lactulose 20 Gm/30 Ml Solution) 30 gm PO TID [facility] Last Admin: 11/28/24 11:07 Dose: 30 gm Magnesium Hydroxide (Milk Of Magnesia 30 Ml Oral.Susp) 30 ml PO DAILY PRN PRN Reason: Constipation Magnesium Oxide (Magnesium Oxide 400 Mg Tablet) 400 mg PO BIDPC [facility] Last Admin: 11/28/24 10:59 Dose: 400 mg Melatonin (Melatonin 3 Mg Tablet) 6 mg PO BEDTIME PRN PRN Reason: Insomnia Methadone HCl (Methadone Hcl 20 Mg/2 Ml Oral.Conc) 20 mg PO ONCE ONE Stop: 11/29/24 08:01 Nystatin (Nystatin Powder 15 Gm Bottle) 1 appl TOPICAL TID [facility]; Protocol Last Admin: 11/28/24 12:07 Dose: Not Given Pharmacy Consult (Consult Rx Vancomycin Dosing) 1 each MISCELLANE DAILY PRN PRN Reason: Consult order Rifaximin (Rifaximin 550 Mg Tablet) 550 mg PO BID [facility] Last Admin: 11/28/24 10:58 Dose: 550 mg Sodium Chloride (0.9 % Sodium Chloride Flush 3 Ml Syringe) 3 ml IVFLUSH QSHIFT [facility] Last Admin: 11/28/24 11:00 Dose: 3 ml Spironolactone (Spironolactone 25 Mg Tablet) 50 mg PO DAILY [facility]; Protocol Last Admin: 11/28/24 10:58 Dose: 50 mg Home Medications ?Medication ?Instructions ?Recorded ?Confirmed ?Type gabapentin 600 mg tablet 600 mg PO BID 10/27/24 11/27/24 History lactulose 10 gram/15 mL oral 30 g PO TID 10/27/24 11/27/24 History solution (Enulose) Allergies Allergy/AdvReac Type Severity Reaction Status Date / Time No Known Allergies Allergy Verified 11/27/24 09:53 [No Known Allergies*] Physical Exam Vital signs: Vital Signs Temp 97.5 F 11/28/24 11:08 Pulse 83 11/28/24 11:35 Resp 16 11/28/24 11:08 BP 113/73 11/28/24 11:08 Pulse Ox 95 11/28/24 11:08 O2 Del Method Room Air 11/28/24 11:08 Intake & Output 11/27/24 11/28/24 11/28/24 18:59 06:59 18:59 Intake Total 1040 / 1340 300 / 1340 550 / 550 Output Total 1900 / 2100 200 / 2100 1600 / 1600 Balance -860 / -760 100 / -760 -1050 / -1050 Urine Output (Average ml/kg/hr) 1.44 0.16 1.31 Intake: Intake, Oral Amount 240 / 240 Intake, IV Amount 800 / 1100 300 / 1100 550 / 550 0.9 % Sodium Chloride 250 ml @ 250 / 250 999 mls/hr IV .Q16M [facility] Rx#: [id number] Albumin Human 25 % 100 ml @ 100 200 / 200 mls/hr IV Q6H [facility] Rx#: [id number] Piperacillin Sodium/Tazobactam 50 / 150 100 / 150 50 / 50 3.375 gm In 0.9 % Sodium Chloride 50 ml @ 100 mls/hr IV Q6H [facility] Rx#:[id number] vancomycin HCL 1,500 mg In 0.9 500 / 500 % Sodium Chloride 500 ml @ 333. 333 mls/hr IV Q12H [facility] Rx#: [id number] vancomycin/NS 2,000 mg In 500 500 / 500 ml @ 250 mls/hr IV ONCE ONE Rx# :[id number] Output: Output, Urine Amount 1900 / 2100 200 / 2100 1600 / 1600 Other: Breakfast % Eaten 75% Lunch % Eaten 50% Number of Incontinent Voids 2 Urine Urinal Urinal Urinal Urine Color Yellow Pale Yellow Last Bowel Movement 11/27/24 11/28/24 Stool Incontinent Stool Amount Moderate Stool Color Brown Stool Consistency Mushy Weight 110 kg 101.6 kg Ward Weight in Grams 224112 Weight 101.6 kg - Constitutional Present: obese, chronically ill appearing - Routine HEENT Exam Head: Present: normal inspection Eye: Present: EOMI - Routine Neck Exam Present: supple - Routine Respiratory Exam Absent: accessory muscle use, stridor - Routine Cardiovascular Exam Cardiovascular: Present: S1, S2 - Routine Abdominal Exam Present: distended, firm - Routine Extremities Exam Comments: Lower extremities with erythema and changes of chronic venous stasis/dermatitis Hem/Onc Consult Result - Labs CBC & Chem 7: 11/29/24 07:14 11/29/24 07:14 Labs: Short CBC 11/27/24 11/28/24 Range/Units 17:05 07:26 WBC 3.5 L 2.0 L (4.8-10.8) X10*3/uL Hgb 12.6 L 10.2 L (14.0-18.0) g/dl Hct 37.2 L 30.5 L (42.0-52.0) % Plt Count 81 L 65 L (160-400) X10*3/uL BMP 11/28/24 07:26 Sodium 136 Potassium 3.0 L D Chloride 101 Carbon Dioxide 29 BUN 6 L Creatinine 0.55 Calcium 7.8 L Liver Function 11/28/24 Range/Units 07:26 Total Bilirubin 2.2 H (0.0-1.0) mg/dL AST 30 (5-37) U/L ALT 16 (0-40) U/L Alkaline Phosphatase 166 H (39-117) U/L Albumin 2.4 L (3.5-5.0) g/dL Assessment and Plan Patient Active problem list reviewed?: Yes (1) Portal vein thrombosis Status: Chronic Assessment and plan: 1. This is a 69-year-old male with a PMH significant for?HTN, hepatic cirrhosis complicated by pancytopenia and portal vein thrombosis previously anticoagulated with Lovenox, hx of variceal bleeding s/p tips, polysubstance use, alcohol use disorder, GERD, and long hx of medication noncompliance who presents to the ED with?swelling and pain in legs and scrotum x3 days. Pt is admitted to the hospital for treatment and further evaluation of scrotal and lower extremity swelling in the setting of scrotal cellulitis and pyelonephritis with sepsis, and portal vein thrombosis. CT abdomen/pelvis with contrast performed 11/27/24 shows cirrhotic liver with portal venous hypertension. Thrombus within portions of main portal vein, splenic vein and within a branch of superior mesenteric vein, pronounced edema of soft tissue scrotum suggesting possible cellulitis. Tiny pockets of gas within soft tissue of left hemiscrotum without evidence of abscess. Patient does not have acute symptoms of abdominal pain. He seems to have progression of clot now into the splenic and mesenteric veins, still appears to be chronic thrombosis and clot burden is not extensive compared to imaging that he had in 2023. Most recent EGD in July 2024 showed only small varices. He may need another endoscopy before restarting him on anticoagulation. Agree with anticoagulation for now with Lovenox 1 mg/kg b.i.d. He should be monitored closely for any signs of bleeding. I thank you for the consultation. - Time Spent With Patient Time Spent with Patient (in minutes): 20
[2024-11-28] MEDS: Nystatin Powder 15 GM BOTTLE 1 APPL TOPICAL ×2 (15:20→21:32)
[2024-11-28] MEDS: Ammonium Lactate 12 % Cream 140 GM TUBE 1 APPL TOPICAL ×2 (15:27→21:33)
[2024-11-28] MEDS: vancomycin HCL 1,000 MG in 0.9 % Sodium Chloride 250 ML 270 MG IV (16:25)
[2024-11-28 16:26] LABS: INTERNATIONAL NORM RATIO 1.4 (0.9-1.1); Prothrombin Time 15.9 SEC (10.9-12.4)
[2024-11-28] MEDS: Tamsulosin HCL 0.4 MG CAPSULE 0.8 MG PO (21:32)
[2024-11-29] VITALS (8 sets, daily range): BP systolic 99–120; BP diastolic 54–71; PULSE 105–116; RESP 18; TEMP 36.3–37.1; O2SAT 90–94
[2024-11-29] MEDS: Piperacillin Sodium/Tazobactam 3.375 GM in 0.9 % Sodium Chloride 50 ML IV ×4 (03:45→21:23)
[2024-11-29] MEDS: Enoxaparin Sodium 120 MG/0.8 ML SYRINGE 110 MG SUBCUT ×2 (03:46→16:37)
[2024-11-29] MEDS: vancomycin HCL 1,000 MG in 0.9 % Sodium Chloride 250 ML 270 MG IV (04:15)
[2024-11-29 07:25] LABS: Hematocrit 32.7 % (42.0-52.0); Hemoglobin 10.8 g/dl (14.0-18.0); Mean Corpuscular Hemoglobin 31.2 pg (27.0-33.0); Mean Corpuscular Volume 94.5 fL (80.0-98.0); Mean Platelet Volume 10.2 fL (9.4-12.4); Red Blood Count 3.46 X10*6/uL (4.60-5.80); Red Cell Distribution Width 16.2 % (11.0-16.0)
[2024-11-29 07:26] LABS: Platelet Count 70 X10*3/uL (160-400); White Blood Count 1.8 X10*3/uL (4.8-10.8)
[2024-11-29 07:31] LABS: INTERNATIONAL NORM RATIO 1.4 (0.9-1.1); Prothrombin Time 16.2 SEC (10.9-12.4)
[2024-11-29 07:55] LABS: Alanine Aminotransferase 15 U/L (0-40); Albumin Level 2.4 g/dL (3.5-5.0); Alkaline Phosphatase 169 U/L (39-117); Anion Gap 8 (12-20); Aspartate Amino Transferase 33 U/L (5-37); Bilirubin Total 1.7 mg/dL (0.0-1.0); Blood Urea Nitrogen 6 mg/dL (9-16); Calcium 7.6 mg/dL (8.4-10.2); Carbon Dioxide 31 mmol/L (22-29); Chloride 101 mmol/L (96-108); Creatinine Clr Calc Pharmacy 124.8; Estimated Glomerular Filt Rate > 60; Glucose Random 247 mg/dL (60-115); Magnesium 1.6 mg/dL (1.6-2.6); Potassium 2.9 mmol/L (3.3-5.1); Sodium 137 mmol/L (135-145); Total Protein 5.8 g/dL (6.5-8.0)
[2024-11-29] MEDS: methADONE HCl 20 MG/2 ML ORAL.CONC PO (08:57)
[2024-11-29] MEDS: Acetaminophen 325 MG TABLET 650 MG PO (08:57)
[2024-11-29] MEDS: Ferrous Sulfate 324 MG TABLET.DR PO (08:58)
[2024-11-29] MEDS: rifAXIMin 550 MG TABLET PO ×2 (08:58→19:53)
[2024-11-29] MEDS: Potassium Chloride ER 20 MEQ TAB.ER.PRT 40 MEQ PO (08:58)
[2024-11-29] MEDS: Spironolactone 25 MG TABLET 50 MG PO (08:58)
[2024-11-29] MEDS: Magnesium Oxide 400 MG TABLET PO ×2 (08:58→16:36)
[2024-11-29] MEDS: Gabapentin 600 MG TABLET PO ×2 (08:58→19:53)
[2024-11-29] MEDS: Nystatin Powder 15 GM BOTTLE 1 APPL TOPICAL ×3 (08:59→19:54)
[2024-11-29] MEDS: Potassium Chloride/H20 10 MEQ/100 ML PIGGYBACK 100 MEQ IV ×4 (08:59→13:47)
[2024-11-29] MEDS: Ammonium Lactate 12 % Cream 140 GM TUBE 1 APPL TOPICAL ×2 (08:59→19:56)
[2024-11-29] MEDS: 0.9 % Sodium Chloride Flush 3 ML SYRINGE IVFLUSH ×3 (08:59→20:00)
[2024-11-29] MEDS: oxyCODONE HCl Immed Release 5 MG TABLET PO ×2 (10:42→16:36)
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
--- NOTE | 2024-11-29 13:11 | HO.PM.IMPN ---
Subjective Subjective Date of Service: 11/29/24 Interval History: This history was taken in [place] from the patient. C/o pain in legs and scrotum from swelling Review of Systems Review of Systems: Yes all other systems are reviewed and are negative Physical Exam Vital Signs: Vital Signs: Last Vital Signs Temp 98.7 F 11/29/24 11:16 Pulse 111 H 11/29/24 11:16 Resp 18 11/29/24 11:16 BP 101/56 L 11/29/24 11:16 Pulse Ox 94 11/29/24 11:16 O2 Del Method Room Air 11/29/24 11:16 BMI result Body Mass Index 38.4 Gen: in no acute distress HEENT: sclera anicteric, moist mucus membranes Neck: supple Lungs: clear to auscultation bilaterally Heart: regular rate and rhythm, no murmurs Abd: soft, non-tender, non-distended : extensive scrotal erythema and edema Ext: severe bilateral leg edema with chronic venous stasis changes/hyperkeratosis Skin: warm/well-perfused Neuro: alert and oriented x3, no focal findings; no asterixis Psych: appropriate affect Objective Data Active Medications Acetaminophen (Acetaminophen 325 Mg Tablet) 650 mg PO Q6H PRN PRN Reason: Pain, Mild 1-3,fever,headache Last Admin: 11/29/24 08:57 Dose: 650 mg Documented By: MATTI Calcium Carbonate (Calcium Carbonate 750 Mg Tab.Chew) 750 mg PO Q4H PRN PRN Reason: Heartburn Enoxaparin Sodium (Enoxaparin Sodium 120 Mg/0.8 Ml Syringe) 110 mg SUBCUT Q12H [facility] Last Admin: 11/29/24 03:46 Dose: 110 mg Documented By: GRUPO Ferrous Sulfate (Ferrous Sulfate 324 Mg Tablet.) 324 mg PO DAILY [facility] Last Admin: 11/29/24 08:58 Dose: 324 mg Documented By: MATTI Gabapentin (Gabapentin 600 Mg Tablet) 600 mg PO BID [facility] Last Admin: 11/29/24 08:58 Dose: 600 mg Documented By: MATTI Piperacillin Sod/Tazobactam (Sod 3.375 gm/ Sodium Chloride) 50 mls @ 100 mls/hr IV Q6H [facility] Last Admin: 11/29/24 12:43 Dose: 100 mls/hr Documented By: MATTI Vancomycin HCl 1,000 mg/ (Sodium Chloride) 270 mls @ 270 mls/hr IV Q12H [facility] Last Infusion: 11/29/24 05:15 Dose: Infused Documented By: GRUPO Lactic Acid (Ammonium Lactate 12 % Cream 140 Gm Tube) 1 appl TOPICAL BID [facility]; Protocol Last Admin: 11/29/24 08:59 Dose: 1 appl Documented By: MATTI Lactulose (Lactulose 20 Gm/30 Ml Solution) 30 gm PO TID [facility] Last Admin: 11/29/24 09:13 Dose: Not Given Documented By: MATTI Non-Admin Reason: Patient Refused Magnesium Hydroxide (Milk Of Magnesia 30 Ml Oral.Susp) 30 ml PO DAILY PRN PRN Reason: Constipation [facility] ([facility] 400 Mg [facility]t) [facility] Last Admin: 11/29/24 08:58 Dose: 400 mg Documented By: MATTI Melatonin (Melatonin 3 Mg Tablet) 6 mg PO BEDTIME PRN PRN Reason: Insomnia Morphine Sulfate (Morphine Sulfate 2 Mg/Ml Cartridge) 2 mg IVPUSH Q4H PRN; Protocol PRN Reason: Pain, Severe (Pain Scale 7-10) Nystatin (Nystatin Powder 15 Gm Bottle) 1 appl TOPICAL TID [facility]; Protocol Last Admin: 11/29/24 08:59 Dose: 1 appl Documented By: MATTI Oxycodone HCl (Oxycodone Hcl Immed Release 5 Mg Tablet) 5 mg PO Q4H PRN PRN Reason: Pain, Moderate(Pain Scale 4-6) Last Admin: 11/29/24 10:42 Dose: 5 mg Documented By: MATTI Pharmacy Consult (Consult Rx Vancomycin Dosing) 1 each MISCELLANE DAILY PRN PRN Reason: Consult order Rifaximin (Rifaximin 550 Mg Tablet) 550 mg PO BID [facility] Last Admin: 11/29/24 08:58 Dose: 550 mg Documented By: MATTI Sodium Chloride (0.9 % Sodium Chloride Flush 3 Ml Syringe) 3 ml IVFLUSH QSHIFT [facility] Last Admin: 11/29/24 08:59 Dose: 3 ml Documented By: MATTI Spironolactone (Spironolactone 25 Mg Tablet) 50 mg PO DAILY [facility]; Protocol Last Admin: 11/29/24 08:58 Dose: 50 mg Documented By: MATTI Tamsulosin HCl (Tamsulosin Hcl 0.4 Mg Capsule) 0.8 mg PO BEDTIME [facility] Last Admin: 11/28/24 21:32 Dose: 0.8 mg Documented By: GRUPO Labs 11/29/24 07:14 11/29/24 07:14 Labs: Laboratory Results - last 24 hr 11/28/24 11/28/24 11/29/24 14:02 16:03 07:14 MCV 94.5 MCH 31.2 MCHC 33.0 RDW 16.2 H Plt Count 70 L MPV 10.2 Absolute Nucleated RBC 0.000 Nucleated RBC % (auto) 0.0 PT 15.9 H 16.2 H INR 1.4 H 1.4 H Anion Gap 8 L Estim Creat Clear Calc 124.8 Estimated GFR > 60 Random Glucose 247 H Calcium 7.6 L Magnesium 1.6 Total Bilirubin 1.7 H AST 33 ALT 15 Alkaline Phosphatase 169 H Total Protein 5.8 L Albumin 2.4 L Random Vancomycin 16.5 ITS Impressions Scrotum Ultrasound 11/29/24 09:26 IMPRESSION: Marked scrotal wall edema consistent with the history of cellulitis. Color and spectral Doppler flow are seen in both testes, although these appear decreased, which may be due to selection of a nonoptimal ultrasound probe due to edema. Electronically signed by: Jose Antonio Norton MD 11/29/2024 10:40 AM EDT RP Microbiology Microbiology Results: Microbiology 11/27/24 Unknown Urine Culture - Preliminary Urine clean catch - Clean Catch Midstream Gram negative del 11/27/24 11:04 Blood Culture - Preliminary Blood - Venous Gram negative del 11/27/24 11:04 Blood Culture - Preliminary Blood - Venous No growth after 24 hours. Assessment and Plan (1) Portal vein thrombosis: Status: Chronic Plan d3 for 69yo M with decompensated HCV/EtOH cirrhosis, hx variceal bleeding s/p TIPS, hx portal venous thrombosis previously anticoagulated with enoxaparin, polysubstance abuse, medication noncompliance; presenting with worsening leg and scrotal swelling; found to have sepsis from scrotal cellulitis + pyelonephritis as well as new portal/splenic/superior mesenteric vein thrombosis; found to have GNR bacteremia portal, splenic, and superior mesenteric vein thrombosis - therapeutic enoxaparin - Heme consulted: no thrombectomy recommended; continue enoxaparin and consider change to DOAC after discussing EGD to check on status of varices with GI sepsis due to scrotal cellulitis and pyelonephritis and GNR bacteremia - continue vancomycin + piperacillin-tazobactam 11/27-, follow BCx/UCx speciation + susceptibilities - Urology following, no drainage for now decompensated HCV/EtOH cirrhosis with peripheral edema - continue IV furosemide, PO spironolactone; monitor electrolytes hypoK - replete IV/PO; recheck level tomorrow hypoMg - repleted; continue maintenance dosing hepatic encephalopathy - continue rifaximin and lactulose pancytopenia due to cirrhosis - monitor counts ROMAN - continue PO Fe neuropathic pain - gabapentin polysubstance abuse - Addiction Medicine consult; continue methadone - HBV immune from prior infection, recent HIV serology + HCV viral load negative VTE ppx - enoxaparin; caution with thrombocytopenia dispo - PT consulted, plan eventual STR In my clinical judgment, the patient requires continued inpatient hospitalization for the following reasons: IV ABX, IV diuretics, bacteremia Total time managing care of this patient today: 45 minutes. Quality Stroke Does the patient have a stroke diagnosis?: No VTE Prior VTE?: No VTE Risk Level:: Medical - moderate - high VTE Device Contraindication: Treatment Not Indicated VTE Drug Contraindication: N/A - Med Ordered
[2024-11-29 14:31] LABS: Vancomycin Random 11.3 mcg/mL (15-20)
--- NOTE | 2024-11-29 14:55 | HE.PHANOTE ---
RE: VANCO DOSING Trough came back as 11.3 mg/L. Dose is increased to 1250 mg q12h, next trough is scheduled for 11/30/24 @1400.
[2024-11-29] MEDS: Lactulose 20 GM/30 ML SOLUTION 30 GM PO (16:36)
[2024-11-29] MEDS: vancomycin HCL 1,250 MG in 0.9 % Sodium Chloride 250 ML 166.67 MG IV (16:37)
[2024-11-29] MEDS: Tamsulosin HCL 0.4 MG CAPSULE 0.8 MG PO (19:54)
[2024-11-30] VITALS (7 sets, daily range): BP systolic 100–119; BP diastolic 57–69; PULSE 81–111; RESP 18; TEMP 36.6–37; O2SAT 91–95
[2024-11-30] MEDS: Piperacillin Sodium/Tazobactam 3.375 GM in 0.9 % Sodium Chloride 50 ML IV (03:08)
[2024-11-30] MEDS: vancomycin HCL 1,250 MG in 0.9 % Sodium Chloride 250 ML 166.67 MG IV (04:51)
[2024-11-30] MEDS: Enoxaparin Sodium 120 MG/0.8 ML SYRINGE 110 MG SUBCUT ×2 (06:18→16:15)
[2024-11-30 07:07] LABS: Hematocrit 33.7 % (42.0-52.0); Hemoglobin 11.1 g/dl (14.0-18.0); Mean Corpuscular HGB Conc 32.9 g/dl (31.0-36.0); Mean Corpuscular Hemoglobin 31.3 pg (27.0-33.0); Mean Corpuscular Volume 94.9 fL (80.0-98.0); Mean Platelet Volume 9.9 fL (9.4-12.4); Red Blood Count 3.55 X10*6/uL (4.60-5.80); Red Cell Distribution Width 16.3 % (11.0-16.0)
[2024-11-30 07:08] LABS: Platelet Count 80 X10*3/uL (160-400); White Blood Count 1.8 X10*3/uL (4.8-10.8)
[2024-11-30 07:14] LABS: Alanine Aminotransferase 15 U/L (0-40); Albumin Level 2.4 g/dL (3.5-5.0); Alkaline Phosphatase 174 U/L (39-117); Anion Gap 11 (12-20); Aspartate Amino Transferase 34 U/L (5-37); Bilirubin Total 1.5 mg/dL (0.0-1.0); Blood Urea Nitrogen 4 mg/dL (9-16); Calcium 7.8 mg/dL (8.4-10.2); Carbon Dioxide 28 mmol/L (22-29); Chloride 104 mmol/L (96-108); Creatinine Clr Calc Pharmacy 124.8; Estimated Glomerular Filt Rate > 60; Glucose Random 263 mg/dL (60-115); Magnesium 1.7 mg/dL (1.6-2.6); Potassium 3.5 mmol/L (3.3-5.1); Sodium 139 mmol/L (135-145); Total Protein 6.1 g/dL (6.5-8.0)
[2024-11-30] MEDS: Spironolactone 25 MG TABLET 50 MG PO (09:31)
[2024-11-30] MEDS: oxyCODONE HCl Immed Release 5 MG TABLET PO ×2 (09:31→16:20)
[2024-11-30] MEDS: Magnesium Oxide 400 MG TABLET PO ×2 (09:31→16:16)
[2024-11-30] MEDS: Meropenem 1 GM VIAL IVPUSH ×2 (09:31→16:15)
[2024-11-30] MEDS: Ferrous Sulfate 324 MG TABLET.DR PO (09:31)
[2024-11-30] MEDS: Gabapentin 600 MG TABLET PO ×2 (09:31→20:28)
[2024-11-30] MEDS: 0.9 % Sodium Chloride Flush 3 ML SYRINGE IVFLUSH ×2 (09:31→16:16)
[2024-11-30] MEDS: rifAXIMin 550 MG TABLET PO ×2 (09:31→20:28)
[2024-11-30] MEDS: methADONE HCl 20 MG/2 ML ORAL.CONC 30 MG PO (09:31)
[2024-11-30] MEDS: Ammonium Lactate 12 % Cream 140 GM TUBE 1 APPL TOPICAL ×2 (09:32→20:39)
[2024-11-30] MEDS: Nystatin Powder 15 GM BOTTLE 1 APPL TOPICAL ×3 (09:32→20:39)
[2024-11-30 09:33] LABS: C Reactive Protein 4.14 mg/dL (< or = 0.50)
--- NOTE | 2024-11-30 10:37 | MHC.CM.PN ---
Per ROUNDS discussion, Patient is still acute and not yet medically cleared for dc (anticipate dc to STR next week); CM will follow.
--- NOTE | 2024-11-30 10:51 | HO.ADDICTPRO ---
Subjective Subjective Date of Service: 11/30/24 Reason For Visit: Portal vein thrombosus Interim History: Patient seen in follow up for CHRISTOPHER No alcohol withdrawal sx No opiate withdrawal sx--methadone 30mg QD Patient reporting he slept well last evening No concerns at this time Review of Systems Acute medical concerns: Yes Medical Review of Systems: unchanged Mental Status Exam Mental Status Exam Patient Appearance: Appropriate Level of Consciousness: Awake, Appropriate and Alert Patient Behavior: Appropriate and Talkative Affect Description: Calm Speech Pattern: Clear Hallucinations: None Thought Content: positive for Intact Judgement: Good Diagnostics Vital Signs (24Hr): Vital Signs - 24 hr 11/29/24 11:16 11/29/24 15:03 11/29/24 16:03 Temperature 98.7 F 97.6 F Pulse Rate 111 H 109 H 116 H Respiratory Rate 18 18 Blood Pressure 101/56 L 118/71 Pulse Oximetry 94 94 Oxygen Delivery Method Room Air Room Air 11/29/24 19:17 11/29/24 23:01 11/30/24 03:06 Temperature 97.3 F 98.2 F 98 F Pulse Rate 111 H 105 H 108 H Respiratory Rate 18 18 18 Blood Pressure 99/54 L 101/58 L 100/57 L Pulse Oximetry 92 93 93 Oxygen Delivery Method Room Air Room Air Room Air 11/30/24 07:35 11/30/24 09:31 Temperature 98.2 F Pulse Rate 84 Respiratory Rate 18 Blood Pressure 119/68 119/68 Pulse Oximetry 95 Oxygen Delivery Method Room Air BMI result Body Mass Index 38.4 Labs 11/30/24 06:48 11/30/24 06:48 Labs: Laboratory Results - last 48 hr 11/28/24 11/28/24 11/29/24 14:02 16:03 07:14 WBC 1.8 L RBC 3.46 L Hgb 10.8 L Hct 32.7 L MCV 94.5 MCH 31.2 MCHC 33.0 RDW 16.2 H Plt Count 70 L MPV 10.2 Absolute Nucleated RBC 0.000 Nucleated RBC % (auto) 0.0 PT 15.9 H 16.2 H INR 1.4 H 1.4 H Sodium 137 Potassium 2.9 L* Chloride 101 Carbon Dioxide 31 H Anion Gap 8 L BUN 6 L Creatinine 0.61 Estim Creat Clear Calc 124.8 Estimated GFR > 60 Random Glucose 247 H Calcium 7.6 L Magnesium 1.6 Total Bilirubin 1.7 H AST 33 ALT 15 Alkaline Phosphatase 169 H C-Reactive Protein Total Protein 5.8 L Albumin 2.4 L Random Vancomycin 16.5 11/29/24 11/30/24 13:59 06:48 WBC 1.8 L RBC 3.55 L Hgb 11.1 L Hct 33.7 L MCV 94.9 MCH 31.3 MCHC 32.9 RDW 16.3 H Plt Count 80 L MPV 9.9 Absolute Nucleated RBC 0.000 Nucleated RBC % (auto) 0.0 PT INR Sodium 139 Potassium 3.5 D Chloride 104 Carbon Dioxide 28 Anion Gap 11 L BUN 4 L Creatinine 0.61 Estim Creat Clear Calc 124.8 Estimated GFR > 60 Random Glucose 263 H Calcium 7.8 L Magnesium 1.7 Total Bilirubin 1.5 H AST 34 ALT 15 Alkaline Phosphatase 174 H C-Reactive Protein 4.14 H Total Protein 6.1 L Albumin 2.4 L Random Vancomycin 11.3 L Imaging Radiology Impressions: ITS Impressions Scrotum Ultrasound 11/29/24 09:26 IMPRESSION: Marked scrotal wall edema consistent with the history of cellulitis. Color and spectral Doppler flow are seen in both testes, although these appear decreased, which may be due to selection of a nonoptimal ultrasound probe due to edema. Electronically signed by: Jose Antonio Norton MD 11/29/2024 10:40 AM EDT RP Medications Medications Current Medications Acetaminophen (Acetaminophen 325 Mg Tablet) 650 mg PO Q6H PRN PRN Reason: Pain, Mild 1-3,fever,headache Last Admin: 11/29/24 08:57 Dose: 650 mg Calcium Carbonate (Calcium Carbonate 750 Mg Tab.Chew) 750 mg PO Q4H PRN PRN Reason: Heartburn Enoxaparin Sodium (Enoxaparin Sodium 120 Mg/0.8 Ml Syringe) 110 mg SUBCUT Q12H [facility] Last Admin: 11/30/24 06:18 Dose: 110 mg Ferrous Sulfate (Ferrous Sulfate 324 Mg Tablet.) 324 mg PO DAILY [facility] Last Admin: 11/30/24 09:31 Dose: 324 mg Gabapentin (Gabapentin 600 Mg Tablet) 600 mg PO BID [facility] Last Admin: 11/30/24 09:31 Dose: 600 mg Lactic Acid (Ammonium Lactate 12 % Cream 140 Gm Tube) 1 appl TOPICAL BID [facility]; Protocol Last Admin: 11/30/24 09:32 Dose: 1 appl Lactulose (Lactulose 20 Gm/30 Ml Solution) 30 gm PO TID [facility] Last Admin: 11/30/24 09:32 Dose: Not Given Magnesium Hydroxide (Milk Of Magnesia 30 Ml Oral.Susp) 30 ml PO DAILY PRN PRN Reason: Constipation Magnesium Oxide (Magnesium Oxide 400 Mg Tablet) 400 mg PO BIDPC [facility] Last Admin: 11/30/24 09:31 Dose: 400 mg Melatonin (Melatonin 3 Mg Tablet) 6 mg PO BEDTIME PRN PRN Reason: Insomnia Meropenem (Meropenem 1 Gm Vial) 1 gm IVPUSH Q8H [facility] Last Admin: 11/30/24 09:31 Dose: 1 gm Methadone HCl (Methadone Hcl 20 Mg/2 Ml Oral.Conc) 30 mg PO DAILY@0800 [facility] Last Admin: 11/30/24 09:31 Dose: 30 mg Morphine Sulfate (Morphine Sulfate 2 Mg/Ml Cartridge) 2 mg IVPUSH Q4H PRN; Protocol PRN Reason: Pain, Severe (Pain Scale 7-10) Nystatin (Nystatin Powder 15 Gm Bottle) 1 appl TOPICAL TID [facility]; Protocol Last Admin: 11/30/24 09:32 Dose: 1 appl Oxycodone HCl (Oxycodone Hcl Immed Release 5 Mg Tablet) 5 mg PO Q4H PRN PRN Reason: Pain, Moderate(Pain Scale 4-6) Last Admin: 11/30/24 09:31 Dose: 5 mg Rifaximin (Rifaximin 550 Mg Tablet) 550 mg PO BID [facility] Last Admin: 11/30/24 09:31 Dose: 550 mg Sodium Chloride (0.9 % Sodium Chloride Flush 3 Ml Syringe) 3 ml IVFLUSH QSHIFT [facility] Last Admin: 11/30/24 09:31 Dose: 3 ml Spironolactone (Spironolactone 25 Mg Tablet) 50 mg PO DAILY [facility]; Protocol Last Admin: 11/30/24 09:31 Dose: 50 mg Tamsulosin HCl (Tamsulosin Hcl 0.4 Mg Capsule) 0.8 mg PO BEDTIME [facility] Last Admin: 11/29/24 19:54 Dose: 0.8 mg Allergies Allergies Allergy/AdvReac Type Severity Reaction Status Date / Time No Known Allergies Allergy Verified 11/27/24 09:53 [No Known Allergies*] Assessment & Plan Assessment & Plan (1) Opioid use disorder: Status: Acute Code(s): F11.90 - Opioid use, unspecified, uncomplicated Assessment and Plan: continue methadone 30mg QD Total time managing care of this patient today _15___ minutes.
--- NOTE | 2024-11-30 13:18 | PM.GIPN ---
Subjective Subjective Date of Service: 11/30/24 Interval History: Seen at bedside. More alert today. Reports scrotal pain and leg pain. No abd pain reported. No N/V. Has not moved bowels today yet despite on lactulose. Critical Care Time (minutes): 0 Physical Exam Vital Signs: Vital Signs: Last Vital Signs Temp 98.3 F 11/30/24 11:26 Pulse 83 11/30/24 11:26 Resp 18 11/30/24 11:26 BP 113/69 11/30/24 11:26 Pulse Ox 94 11/30/24 11:26 O2 Del Method Room Air 11/30/24 11:26 BMI result Body Mass Index 38.4 malnourished, disheveled icteric abd soft, distended, nontender no overt resp distress b/l leg edema with chronic venous stasis changes and wounds A/Ox3, mild asterixis Objective Data Labs 12/01/24 07:25 12/01/24 07:26 Labs: Laboratory Results - last 24 hr 11/29/24 11/30/24 13:59 06:48 WBC 1.8 L RBC 3.55 L Hgb 11.1 L Hct 33.7 L MCV 94.9 MCH 31.3 MCHC 32.9 RDW 16.3 H Plt Count 80 L MPV 9.9 Absolute Nucleated RBC 0.000 Nucleated RBC % (auto) 0.0 Sodium 139 Potassium 3.5 D Chloride 104 Carbon Dioxide 28 Anion Gap 11 L BUN 4 L Creatinine 0.61 Estim Creat Clear Calc 124.8 Estimated GFR > 60 Random Glucose 263 H Calcium 7.8 L Magnesium 1.7 Total Bilirubin 1.5 H AST 34 ALT 15 Alkaline Phosphatase 174 H C-Reactive Protein 4.14 H Total Protein 6.1 L Albumin 2.4 L Random Vancomycin 11.3 L Microbiology Microbiology Results: Microbiology 11/27/24 11:04 Blood - Venous Blood Culture - Final Acinetobacter species 11/27/24 Unknown Urine clean catch - Clean Catch Midstream Urine Culture - Final Klebsiella pneumoniae 11/27/24 11:04 Blood - Venous Blood Culture - Preliminary No growth after 48 hours. Procedures Date of Service Date of Service: 11/30/24 Progress Note: A&P Assessment and plan (1) Portal vein thrombosis: Status: Chronic (2) Esophageal and gastric varices: Status: Acute (3) S/P TIPS (transjugular intrahepatic portosystemic shunt): Status: Acute (4) Alcohol use disorder: Status: Acute (5) Opioid use disorder: Status: Acute (6) Cirrhosis: Status: Acute (7) Current use of anticoagulant therapy: Status: Acute Plan Decompensated cirrhosis - MELD Na 18 - Child Neal Class B Pt with PMH of etOH and opiate use disorder that has led to decompensated cirrhosis with ascites, variceal bleeding s/p TIPS and BRTO, PV thrombosis not on anticoagulation, listed and taken off transplant list 2020 ([facility]) due to ongoing substance use, houselessness, who is here for leg pain and scrotal pain found to have sepsis 2/2 UTI and scrotal infection. Hematology recommends transitioning to DOAC for anticoagulation for splenic, portal and mesenteric vein thrombosis. Pt is juanita for EGD to variceal screening tmrw. Pt is houseless, recommend case management/SW assistance. Also called Chantel (niece) and updated her on clinical course. Time Spent With Patient Time: Total time managing care of this patient today ____ minutes. Quality Stroke Does the patient have a stroke diagnosis?: No VTE Prior VTE?: No VTE Risk Level:: Medical - moderate - high VTE Device Contraindication: Treatment Not Indicated VTE Drug Contraindication: N/A - Med Ordered
[2024-11-30 14:47] LABS: Vancomycin Random 16.4 mcg/mL (15-20)
--- NOTE | 2024-11-30 14:52 | P.PNIM_ITS ---
Subjective Subjective Date of Service: 11/30/24 Interval History: c/o swelling in scrotum and legs Review of Systems Review of Systems: Yes all other systems are reviewed and are negative Physical Exam 2 Vital Signs: Vital Signs: Last Vital Signs Temp 98.3 F 11/30/24 11:26 Pulse 83 11/30/24 11:26 Resp 18 11/30/24 11:26 BP 113/69 11/30/24 11:26 Pulse Ox 94 11/30/24 11:26 O2 Del Method Room Air 11/30/24 11:26 BMI result Body Mass Index 38.4 Gen: in no acute distress HEENT: sclera anicteric, moist mucus membranes Neck: supple Lungs: clear to auscultation bilaterally Heart: regular rate and rhythm, no murmurs Abd: soft, non-tender, non-distended : extensive scrotal erythema and edema Ext: severe bilateral leg edema with chronic venous stasis changes/hyperkeratosis Skin: warm/well-perfused Neuro: alert and oriented x3, no focal findings; no asterixis Psych: appropriate affect Objective Data Active Medications Acetaminophen (Acetaminophen 325 Mg Tablet) 650 mg PO Q6H PRN PRN Reason: Pain, Mild 1-3,fever,headache Last Admin: 11/29/24 08:57 Dose: 650 mg Documented By: MATTI Calcium Carbonate (Calcium Carbonate 750 Mg Tab.Chew) 750 mg PO Q4H PRN PRN Reason: Heartburn Enoxaparin Sodium (Enoxaparin Sodium 120 Mg/0.8 Ml Syringe) 110 mg SUBCUT Q12H [facility] Last Admin: 11/30/24 06:18 Dose: 110 mg Documented By: GHULAM Ferrous Sulfate (Ferrous Sulfate 324 Mg Tablet.) 324 mg PO DAILY [facility] Last Admin: 11/30/24 09:31 Dose: 324 mg Documented By: MATTI Gabapentin (Gabapentin 600 Mg Tablet) 600 mg PO BID [facility] Last Admin: 11/30/24 09:31 Dose: 600 mg Documented By: MATTI Lactic Acid (Ammonium Lactate 12 % Cream 140 Gm Tube) 1 appl TOPICAL BID [facility]; Protocol Last Admin: 11/30/24 09:32 Dose: 1 appl Documented By: MATTI Lactulose (Lactulose 20 Gm/30 Ml Solution) 30 gm PO TID [facility] Last Admin: 11/30/24 09:32 Dose: Not Given Documented By: MATTI Non-Admin Reason: Patient Refused Magnesium Hydroxide (Milk Of Magnesia 30 Ml Oral.Susp) 30 ml PO DAILY PRN PRN Reason: Constipation Magnesium Oxide (Magnesium Oxide 400 Mg Tablet) 400 mg PO BIDPC [facility] Last Admin: 11/30/24 09:31 Dose: 400 mg Documented By: MATTI Melatonin (Melatonin 3 Mg Tablet) 6 mg PO BEDTIME PRN PRN Reason: Insomnia Meropenem (Meropenem 1 Gm Vial) 1 gm IVPUSH Q8H [facility] Last Admin: 11/30/24 09:31 Dose: 1 gm Documented By: MATTI Methadone HCl (Methadone Hcl 20 Mg/2 Ml Oral.Conc) 30 mg PO DAILY@0800 [facility] Last Admin: 11/30/24 09:31 Dose: 30 mg Documented By: MATTI Co-signed By: RICH Morphine Sulfate (Morphine Sulfate 2 Mg/Ml Cartridge) 2 mg IVPUSH Q4H PRN; Protocol PRN Reason: Pain, Severe (Pain Scale 7-10) Nystatin (Nystatin Powder 15 Gm Bottle) 1 appl TOPICAL TID [facility]; Protocol Last Admin: 11/30/24 09:32 Dose: 1 appl Documented By: MATTI Oxycodone HCl (Oxycodone Hcl Immed Release 5 Mg Tablet) 5 mg PO Q4H PRN PRN Reason: Pain, Moderate(Pain Scale 4-6) Last Admin: 11/30/24 09:31 Dose: 5 mg Documented By: MATTI Rifaximin (Rifaximin 550 Mg Tablet) 550 mg PO BID [facility] Last Admin: 11/30/24 09:31 Dose: 550 mg Documented By: MATTI Sodium Chloride (0.9 % Sodium Chloride Flush 3 Ml Syringe) 3 ml IVFLUSH QSHIFT [facility] Last Admin: 11/30/24 09:31 Dose: 3 ml Documented By: MATTI Spironolactone (Spironolactone 25 Mg Tablet) 50 mg PO DAILY [facility]; Protocol Last Admin: 11/30/24 09:31 Dose: 50 mg Documented By: MATTI Tamsulosin HCl (Tamsulosin Hcl 0.4 Mg Capsule) 0.8 mg PO BEDTIME [facility] Last Admin: 11/29/24 19:54 Dose: 0.8 mg Documented By: GHULAM Labs 11/30/24 06:48 11/30/24 06:48 Labs: Laboratory Results - last 24 hr 11/30/24 11/30/24 06:48 14:00 MCV 94.9 MCH 31.3 MCHC 32.9 RDW 16.3 H Plt Count 80 L MPV 9.9 Absolute Nucleated RBC 0.000 Nucleated RBC % (auto) 0.0 Anion Gap 11 L Estim Creat Clear Calc 124.8 Estimated GFR > 60 Random Glucose 263 H Calcium 7.8 L Magnesium 1.7 Total Bilirubin 1.5 H AST 34 ALT 15 Alkaline Phosphatase 174 H C-Reactive Protein 4.14 H Total Protein 6.1 L Albumin 2.4 L Random Vancomycin 16.4 Microbiology Microbiology Results: Microbiology 11/27/24 11:04 Blood Culture - Final Blood - Venous Acinetobacter species 11/27/24 Unknown Urine Culture - Final Urine clean catch - Clean Catch Midstream Klebsiella pneumoniae 11/27/24 11:04 Blood Culture - Preliminary Blood - Venous No growth after 48 hours. Assessment and Plan (1) Portal vein thrombosis: Status: Chronic Plan d4 for 69yo M with decompensated HCV/EtOH cirrhosis, hx variceal bleeding s/p TIPS, hx portal venous thrombosis previously anticoagulated with enoxaparin, polysubstance abuse, medication noncompliance; presenting with worsening leg and scrotal swelling; found to have sepsis from scrotal cellulitis + pyelonephritis as well as new portal/splenic/superior mesenteric vein thrombosis; found to have Acenitobacter bacteremia portal, splenic, and superior mesenteric vein thrombosis - therapeutic enoxaparin - Heme consulted: no thrombectomy recommended; continue enoxaparin and change to apixaban after EGD tomorrow sepsis due to scrotal cellulitis and Klebsiella pneumoniae pyelonephritis and Acenitobacter bacteremia - was on vancomycin + piperacillin-tazobactam 11/27-11/30. change to meropenem 11/30-. Repeat BCx today. ID consultation. - Urology following decompensated HCV/EtOH cirrhosis with peripheral edema - increase IV furosemide, PO spironolactone; monitor electrolytes hypoK - repleted hypoMg - repleted; continue maintenance dosing hepatic encephalopathy - continue rifaximin and lactulose pancytopenia due to cirrhosis - monitor counts ROMAN - continue PO Fe neuropathic pain - gabapentin polysubstance abuse - Addiction Medicine consult; continue methadone - HBV immune from prior infection, recent HIV serology + HCV viral load negative VTE ppx - enoxaparin; caution with thrombocytopenia dispo - PT consulted, plan eventual STR In my clinical judgment, the patient requires continued inpatient hospitalization for the following reasons: IV ABX, IV diuretics, bacteremia Total time managing care of this patient today: 45 minutes. Quality Stroke Does the patient have a stroke diagnosis?: No VTE Prior VTE?: No VTE Risk Level:: Medical - moderate - high VTE Device Contraindication: Treatment Not Indicated VTE Drug Contraindication: N/A - Med Ordered
[2024-11-30] MEDS: Furosemide 40 MG/4 ML VIAL IVPUSH (16:15)
[2024-11-30] MEDS: Lactulose 20 GM/30 ML SOLUTION 30 GM PO (16:15)
[2024-11-30] MEDS: Tamsulosin HCL 0.4 MG CAPSULE 0.8 MG PO (20:28)
[2024-12-01] VITALS (9 sets, daily range): BP systolic 97–126; BP diastolic 54–69; PULSE 80–98; RESP 16–20; TEMP 36.6–37.2; O2SAT 91–97
[2024-12-01] MEDS: 0.9 % Sodium Chloride Flush 3 ML SYRINGE IVFLUSH ×4 (02:04→20:56)
[2024-12-01] MEDS: Meropenem 1 GM VIAL IVPUSH ×3 (02:04→16:54)
[2024-12-01 07:56] LABS: Hemoglobin 10.9 g/dl (14.0-18.0); Mean Corpuscular Hemoglobin 31.4 pg (27.0-33.0); Mean Corpuscular Volume 95.1 fL (80.0-98.0); Red Blood Count 3.47 X10*6/uL (4.60-5.80); Red Cell Distribution Width 16.6 % (11.0-16.0)
[2024-12-01 07:57] LABS: Platelet Count 80 X10*3/uL (160-400)
[2024-12-01 08:12] LABS: Anion Gap 7 (12-20); Blood Urea Nitrogen 4 mg/dL (9-16); Calcium 7.9 mg/dL (8.4-10.2); Carbon Dioxide 31 mmol/L (22-29); Chloride 105 mmol/L (96-108); Creatinine Clr Calc Pharmacy 138.4; Estimated Glomerular Filt Rate > 60; Glucose Random 206 mg/dL (60-115); Magnesium 1.7 mg/dL (1.6-2.6); Potassium 3.3 mmol/L (3.3-5.1); Sodium 140 mmol/L (135-145)
[2024-12-01] MEDS: Ferrous Sulfate 324 MG TABLET.DR PO (09:35)
[2024-12-01] MEDS: Magnesium Oxide 400 MG TABLET PO ×2 (09:35→16:54)
[2024-12-01] MEDS: rifAXIMin 550 MG TABLET PO ×2 (09:35→20:55)
[2024-12-01] MEDS: methADONE HCl 20 MG/2 ML ORAL.CONC 30 MG PO (09:35)
[2024-12-01] MEDS: Gabapentin 600 MG TABLET PO ×2 (09:35→20:55)
[2024-12-01] MEDS: Furosemide 40 MG/4 ML VIAL IVPUSH ×2 (09:36→17:27)
[2024-12-01] MEDS: Lactulose 20 GM/30 ML SOLUTION 30 GM PO (09:36)
[2024-12-01] MEDS: Nystatin Powder 15 GM BOTTLE 1 APPL TOPICAL ×3 (09:45→20:56)
[2024-12-01] MEDS: Ammonium Lactate 12 % Cream 140 GM TUBE 1 APPL TOPICAL ×2 (09:45→20:56)
[2024-12-01] MEDS: oxyCODONE HCl Immed Release 5 MG TABLET PO ×3 (09:53→21:04)
--- NOTE | 2024-12-01 10:57 | MHC.CM.PN ---
Per ROUNDS discussion, Patient is not yet medically cleared for dc (ID pending & EGD today); PT is recommending STR and CM will continue to follow.
--- NOTE | 2024-12-01 11:30 | P.PNIM_ITS ---
Subjective Subjective Date of Service: 12/01/24 Interval History: leg swelling improved but significant scrotal swelling and pain No hematemesis, hematochezia, or melena. NPO for EGD Review of Systems Review of Systems: Yes all other systems are reviewed and are negative Physical Exam 2 Vital Signs: Vital Signs: Last Vital Signs Temp 98.1 F 12/01/24 08:00 Pulse 84 12/01/24 08:00 Resp 16 12/01/24 08:00 BP 98/54 L 12/01/24 08:00 Pulse Ox 95 12/01/24 08:00 O2 Del Method Room Air 12/01/24 08:00 BMI result Body Mass Index 38.4 Gen: in no acute distress HEENT: sclera anicteric, moist mucus membranes Neck: supple Lungs: clear to auscultation bilaterally Heart: regular rate and rhythm, no murmurs Abd: soft, non-tender, non-distended : extensive scrotal erythema and edema Ext: severe bilateral leg edema with chronic venous stasis changes/hyperkeratosis/hyperpigmentation Skin: warm/well-perfused Neuro: alert and oriented x3, no focal findings; no asterixis Psych: appropriate affect Objective Data Active Medications Acetaminophen (Acetaminophen 325 Mg Tablet) 650 mg PO Q6H PRN PRN Reason: Pain, Mild 1-3,fever,headache Last Admin: 11/29/24 08:57 Dose: 650 mg Documented By: MATTI Calcium Carbonate (Calcium Carbonate 750 Mg Tab.Chew) 750 mg PO Q4H PRN PRN Reason: Heartburn Enoxaparin Sodium (Enoxaparin Sodium 120 Mg/0.8 Ml Syringe) 110 mg SUBCUT Q12H [facility] Last Admin: 12/01/24 04:46 Dose: Not Given Documented By: GHULAM Non-Admin Reason: Physician Held Med Ferrous Sulfate (Ferrous Sulfate 324 Mg Tablet.) 324 mg PO DAILY [facility] Last Admin: 12/01/24 09:35 Dose: 324 mg Documented By: TRINITY Furosemide (Furosemide 40 Mg/4 Ml Vial) 40 mg IVPUSH BID@0900,1800 [facility]; Protocol Last Admin: 12/01/24 09:36 Dose: 40 mg Documented By: TRINITY Gabapentin (Gabapentin 600 Mg Tablet) 600 mg PO BID [facility] Last Admin: 12/01/24 09:35 Dose: 600 mg Documented By: TRINITY Lactic Acid (Ammonium Lactate 12 % Cream 140 Gm Tube) 1 appl TOPICAL BID [facility]; Protocol Last Admin: 12/01/24 09:45 Dose: 1 appl Documented By: TRINITY Lactulose (Lactulose 20 Gm/30 Ml Solution) 30 gm PO TID [facility] Last Admin: 12/01/24 09:36 Dose: 30 gm Documented By: TRINITY Magnesium Hydroxide (Milk Of Magnesia 30 Ml Oral.Susp) 30 ml PO DAILY PRN PRN Reason: Constipation Magnesium Oxide (Magnesium Oxide 400 Mg Tablet) 400 mg PO BIDPC [facility] Last Admin: 12/01/24 09:35 Dose: 400 mg Documented By: TRINITY Melatonin (Melatonin 3 Mg Tablet) 6 mg PO BEDTIME PRN PRN Reason: Insomnia Meropenem (Meropenem 1 Gm Vial) 1 gm IVPUSH Q8H [facility] Last Admin: 12/01/24 09:35 Dose: 1 gm Documented By: TRINITY Methadone HCl (Methadone Hcl 20 Mg/2 Ml Oral.Conc) 30 mg PO DAILY@0800 [facility] Last Admin: 12/01/24 09:35 Dose: 30 mg Documented By: TRINITY Co-signed By: FRANCO Morphine Sulfate (Morphine Sulfate 2 Mg/Ml Cartridge) 2 mg IVPUSH Q4H PRN; Protocol PRN Reason: Pain, Severe (Pain Scale 7-10) Nystatin (Nystatin Powder 15 Gm Bottle) 1 appl TOPICAL TID [facility]; Protocol Last Admin: 12/01/24 09:45 Dose: 1 appl Documented By: TRINITY Oxycodone HCl (Oxycodone Hcl Immed Release 5 Mg Tablet) 5 mg PO Q4H PRN PRN Reason: Pain, Moderate(Pain Scale 4-6) Last Admin: 12/01/24 09:53 Dose: 5 mg Documented By: TRINITY Rifaximin (Rifaximin 550 Mg Tablet) 550 mg PO BID [facility] Last Admin: 12/01/24 09:35 Dose: 550 mg Documented By: TRINITY Sodium Chloride (0.9 % Sodium Chloride Flush 3 Ml Syringe) [facility] Last Admin: 12/01/24 09:55 Dose: 3 ml Documented By: TRINITY Spironolactone (Spironolactone 25 Mg Tablet) 50 mg PO DAILY [facility]; Protocol Last Admin: 12/01/24 09:55 Dose: Not Given Documented By: TRINITY Non-Admin Reason: Patient Refused Tamsulosin HCl (Tamsulosin Hcl 0.4 Mg Capsule) 0.8 mg PO BEDTIME [facility] Last Admin: 11/30/24 20:28 Dose: 0.8 mg Documented By: GHULAM Labs 12/01/24 07:25 12/01/24 07:26 Labs: Laboratory Results - last 24 hr 11/30/24 12/01/24 12/01/24 14:00 07:25 07:26 MCV 95.1 MCH 31.4 MCHC 33.0 RDW 16.6 H Plt Count 80 L MPV 10.0 Absolute Nucleated RBC 0.000 Nucleated RBC % (auto) 0.0 Anion Gap 7 L Estim Creat Clear Calc 138.4 Estimated GFR > 60 Random Glucose 206 H Calcium 7.9 L Magnesium 1.7 Random Vancomycin 16.4 Blood Type Antibody Screen 12/01/24 09:55 MCV MCH MCHC RDW Plt Count MPV Absolute Nucleated RBC Nucleated RBC % (auto) Anion Gap Estim Creat Clear Calc Estimated GFR Random Glucose Calcium Magnesium Random Vancomycin Blood Type O Positive Antibody Screen NEGATIVE Microbiology Microbiology Results: Microbiology 11/30/24 06:48 Blood Culture - Preliminary Blood - Venous No growth after 24 hours. 11/27/24 11:04 Blood Culture - Final Blood - Venous Acinetobacter species 11/27/24 Unknown Urine Culture - Final Urine clean catch - Clean Catch Midstream Klebsiella pneumoniae Assessment and Plan (1) Portal vein thrombosis: Status: Chronic Plan d5 for 69yo M with decompensated HCV/EtOH cirrhosis, hx variceal bleeding s/p TIPS, hx portal venous thrombosis previously anticoagulated with enoxaparin, polysubstance abuse, medication noncompliance; presenting with worsening leg and scrotal swelling; found to have sepsis from scrotal cellulitis + pyelonephritis as well as new portal/splenic/superior mesenteric vein thrombosis; found to have Acenitobacter bacteremia portal, splenic, and superior mesenteric vein thrombosis - therapeutic enoxaparin - Heme consulted: no thrombectomy recommended; continue enoxaparin and change to apixaban pending results of EGD today sepsis due to scrotal cellulitis, Klebsiella pneumoniae pyelonephritis, and Acenitobacter bacteremia - was on vancomycin + piperacillin-tazobactam 11/27-11/30. changed to meropenem 11/30-. Repeat BCx 11/30 to ensure clear. ID consultation re: antibiotic duration; may need midline or PICC - Urology following, no surgery indicated decompensated HCV/EtOH cirrhosis with peripheral edema - continue IV furosemide, PO spironolactone; monitor electrolytes daily hypoK - repleted hypoMg - repleted; continue maintenance dosing hepatic encephalopathy - continue rifaximin and lactulose pancytopenia due to cirrhosis - continue to monitor counts ROMAN - continue PO Fe neuropathic pain - gabapentin polysubstance abuse - Addiction Medicine consulted; continue methadone - HBV immune from prior infection, recent HIV serology + HCV viral load negative VTE ppx - enoxaparin; caution with thrombocytopenia dispo - PT consulted, plan eventual STR In my clinical judgment, the patient requires continued inpatient hospitalization for the following reasons: IV ABX, IV diuretics, bacteremia, EGD Total time managing care of this patient today: 45 minutes. Quality Stroke Does the patient have a stroke diagnosis?: No VTE Prior VTE?: No VTE Risk Level:: Medical - moderate - high VTE Device Contraindication: Treatment Not Indicated VTE Drug Contraindication: N/A - Med Ordered
[2024-12-01] MEDS: Lactated Ringers 1,000 ML 80 ML IVCONT (12:25)
--- NOTE | 2024-12-01 12:59 | P.CONAN_ITS ---
[facility] Active Problems Active Problems: All Active Problems UTI (urinary tract infection) (Acute) Scrotal edema (Acute) Acute pyelonephritis (Acute) Cellulitis of scrotum (Acute) Hypertension, portal (Acute) Portal vein thrombosis (Chronic) Homeless (Acute) Portal vein thrombosis (Acute) History of hepatitis C (Acute) Personal history of other diseases of the digestive system (Acute) Esophageal and gastric varices (Acute) S/P TIPS (transjugular intrahepatic portosystemic shunt) (Acute) Alcohol use disorder (Acute) Opioid use disorder (Acute) Biliary stent migration (Acute) Cirrhosis (Acute) Edema (Acute) Lumbar compression fracture (Acute) Upper GI bleed (Acute) Distal radius fracture, right (Acute) Current use of anticoagulant therapy (Acute) Past Medical History Medical History Portal vein thrombosis Opioid use disorder Alcohol use disorder Perforated gallbladder Cirrhosis Anemia Ascites Anasarca Pancytopenia Edema of both lower legs Elevated liver enzymes Polysubstance abuse Splenomegaly Pancytopenia Portal vein thrombosis HTN (hypertension) Functional capacity: independent ambulation Family History Family history of problems with anesthesia: No Surgical History Surgical History S/P TIPS (transjugular intrahepatic portosystemic shunt) History of Problems with Anesthesia: No Social History Social History Household Members: None Household Members Other:: Patient is homeless. Stays with friends at their apartment Housing: Homeless Are you a primary caregiver assisted living to a significant other at home: No Do you presently have visiting nurse or other home services: No Unable to assess alcohol history related to: Unable to respond Alcohol intake: current Alcohol intake frequency: 3 or more drinks per day Alcohol type: beer Comment: 1:1 sitter Patient Tobacco Use Status: Current everyday Tobacco user Tobacco use type: Cigarette Cigarette Packs Per Day: 0.25 Cigarettes Per Day: 3 Smoked in Last 30 Days: Yes e-Cigarette/Vaping Use: Never Used Patient Interested in Nicotine Replacement: No Patient Given Instructions on How to Stop Smoking: No Second Hand Smoke Exposure: No Use of substances other than those prescribed or required for medical reasons: Yes Substance Use Type: Heroin Substance Use Type Other:: last use Wednesday11/27/24 Substance Use Frequency: Daily Currently Displaying Signs/Symptoms of Drug Intoxication Withdrawal: No Have you been hit, kicked, punched, or otherwise hurt by someone within the past year? If so, by whom?: No Do you feel safe in your current relationship?: Yes Is there a partner from a previous relationship who is making you feel unsafe now?: No Are you made to feel afraid or neglected: No Are you DNR?: No Advance Directives: Yes Advance Directives Information Provided: No Advance Directives on File: Yes Advance Directives Date on File: 08/22/22 Do you have a plan to hurt others: No Plan Recently lost weight without trying: Unsure Eating poorly because of decreased appetite: No Nutrition Risks: No Nutritional Risk Poor oral hygiene: Yes service: No Current occupational status: retired Current occupation: [employer] Allergies Allergy/AdvReac Type Severity Reaction Status Date / Time No Known Allergies Allergy Verified 11/27/24 09:53 [No Known Allergies*] Active Medications: Current Medications Acetaminophen (Acetaminophen 325 Mg Tablet) 650 mg PO Q6H PRN PRN Reason: Pain, Mild 1-3,fever,headache Last Admin: 11/29/24 08:57 Dose: 650 mg Calcium Carbonate (Calcium Carbonate 750 Mg Tab.Chew) 750 mg PO Q4H PRN PRN Reason: Heartburn Enoxaparin Sodium (Enoxaparin Sodium 120 Mg/0.8 Ml Syringe) 110 mg SUBCUT Q12H [facility] Last Admin: 12/01/24 04:46 Dose: Not Given Ferrous Sulfate (Ferrous Sulfate 324 Mg Tablet.) 324 mg PO DAILY [facility] Last Admin: 12/01/24 09:35 Dose: 324 mg Furosemide (Furosemide 40 Mg/4 Ml Vial) 40 mg IVPUSH BID@0900,1800 [facility]; Protocol Last Admin: 12/01/24 09:36 Dose: 40 mg Gabapentin (Gabapentin 600 Mg Tablet) 600 mg PO BID [facility] Last Admin: 12/01/24 09:35 Dose: 600 mg Lactated Ringer's (Lr) 1,000 mls @ 80 mls/hr IVCONT .[id number] [facility] Last Admin: 12/01/24 12:25 Dose: 80 mls/hr Lactic Acid (Ammonium Lactate 12 % Cream 140 Gm Tube) 1 appl TOPICAL BID [facility]; Protocol Last Admin: 12/01/24 09:45 Dose: 1 appl Lactulose (Lactulose 20 Gm/30 Ml Solution) 30 gm PO TID [facility] Last Admin: 12/01/24 09:36 Dose: 30 gm Magnesium Hydroxide (Milk Of Magnesia 30 Ml Oral.Susp) 30 ml PO DAILY PRN PRN Reason: Constipation Magnesium Oxide (Magnesium Oxide 400 Mg Tablet) 400 mg PO BIDPC [facility] Last Admin: 12/01/24 09:35 Dose: 400 mg Melatonin (Melatonin 3 Mg Tablet) 6 mg PO BEDTIME PRN PRN Reason: Insomnia Meropenem (Meropenem 1 Gm Vial) 1 gm IVPUSH Q8H [facility] Last Admin: 12/01/24 09:35 Dose: 1 gm Methadone HCl (Methadone Hcl 20 Mg/2 Ml Oral.Conc) 30 mg PO DAILY@0800 [facility] Last Admin: 12/01/24 09:35 Dose: 30 mg Morphine Sulfate (Morphine Sulfate 2 Mg/Ml Cartridge) 2 mg IVPUSH Q4H [facility]; Protocol PRN Reason: Pain, Severe (Pain Scale 7-10) Nystatin (Nystatin Powder 15 Gm Bottle) 1 appl TOPICAL TID [facility]; Protocol Last Admin: 12/01/24 09:45 Dose: 1 appl Oxycodone HCl (Oxycodone Hcl Immed Release 5 Mg Tablet) 5 mg PO Q4H PRN PRN Reason: Pain, Moderate(Pain Scale 4-6) Last Admin: 12/01/24 09:53 Dose: 5 mg Rifaximin (Rifaximin 550 Mg Tablet) 550 mg PO BID [facility] Last Admin: 12/01/24 09:35 Dose: 550 mg Sodium Chloride (0.9 % Sodium Chloride Flush 3 Ml Syringe) 3 ml IVFLUSH QSHIFT [facility] Last Admin: 12/01/24 09:55 Dose: 3 ml Spironolactone (Spironolactone 25 Mg Tablet) 50 mg PO DAILY [facility]; Protocol Last Admin: 12/01/24 09:55 Dose: Not Given Tamsulosin HCl (Tamsulosin Hcl 0.4 Mg Capsule) 0.8 mg PO BEDTIME [facility] Last Admin: 11/30/24 20:28 Dose: 0.8 mg Home Medications ?Medication ?Instructions ?Recorded ?Confirmed ?Last Taken ?Type gabapentin 600 mg tablet 600 mg PO BID 10/27/24 11/27/24 Unknown History lactulose 10 gram/15 mL oral 30 g PO TID 10/27/24 11/27/24 Unknown History solution (Enulose) Exam Exam Date and Time: 01 Dec 2024 Height,Weight and Vital Signs: Height 5 ft 4 in Weight 101.6 kg Last Vital Signs Temp 98.9 F 12/01/24 12:16 Pulse 80 12/01/24 12:16 Resp 16 12/01/24 12:16 BP 106/62 12/01/24 12:16 Pulse Ox 95 12/01/24 12:16 O2 Del Method Room Air 12/01/24 12:16 Pertinent Lab Results Pertinent Lab Results: Laboratory Tests 11/27/24 11/27/24 11/27/24 11:04 11:30 13:27 WBC 3.3 L RBC 3.95 L Hgb 12.2 L Hct 37.4 L MCV 94.7 MCH 30.9 MCHC 32.6 RDW 16.0 Plt Count 65 L MPV 10.3 Immature Gran % (Auto) 0.3 Neut % (Auto) 76.7 H Lymph % (Auto) 12.4 L Long % (Auto) 8.2 Eos % (Auto) 1.5 Baso % (Auto) 0.9 Lymph # (Auto) 0.4 L Long # (Auto) 0.3 Eos # (Auto) 0.1 Baso # (Auto) 0.0 Abs Immat Gran (auto) 0.01 Absolute Neuts (auto) 2.5 Absolute Nucleated RBC 0.000 Nucleated RBC % (auto) 0.0 PT 15.1 H INR 1.3 H APTT Sodium 133 L Potassium 4.1 Chloride 97 Carbon Dioxide 26 Anion Gap 14 BUN 7 L Creatinine 0.63 Estim Creat Clear Calc 126.2 Estimated GFR > 60 Random Glucose 338 H Lactic Acid 3.3 H* Lactic Acid F/U @ 2Hr 2.5 H* Lactic Acid F/U @ 4Hr Calcium 8.2 L Magnesium 1.6 Total Bilirubin 2.0 H AST 46 H ALT 32 Alkaline Phosphatase 242 H Ammonia 74 H C-Reactive Protein B-Natriuretic Peptide 80 Total Protein 6.8 Albumin 2.5 L Lipase 25 Urine Color Dark Yellow Urine Appearance Cloudy Urine pH 5.5 Ur Specific [place] 1.020 Urine Protein Trace Urine Glucose (UA) >=1000 H Urine Ketones Trace Urine Blood Small (1+) H Urine Nitrite Positive H Ur Leukocyte Esterase Moderate (2+) H Urine RBC 3-5 H Urine WBC 11-20 Ur Squamous Epith Cells 0-2 Urine Bacteria 4+ Hyaline Casts 0-2 Random Vancomycin Urine Opiates Screen POSITIVE H Ur Buprenorphine Scrn Not Detected Ur Oxycodone Screen Not Detected Urine Methadone Screen Not Detected Urine Fentanyl Screen POSITIVE H Ur Barbiturates Screen Not Detected Ur Phencyclidine Scrn Not Detected Ur Amphetamines Screen Not Detected U Benzodiazepines Scrn Not Detected Urine Cocaine Screen Not Detected U Marijuana (THC) Screen Not Detected Ethyl Alcohol 51 Blood Type Antibody Screen 11/27/24 11/27/24 11/28/24 15:48 17:05 07:26 WBC 3.5 L 2.0 L RBC 4.04 L 3.30 L Hgb 12.6 L 10.2 L Hct 37.2 L 30.5 L MCV 92.1 92.4 MCH 31.2 30.9 MCHC 33.9 33.4 RDW 15.9 16.2 H Plt Count 81 L 65 L MPV 10.3 9.7 Immature Gran % (Auto) Neut % (Auto) Lymph % (Auto) Long % (Auto) Eos % (Auto) Baso % (Auto) Lymph # (Auto) Long # (Auto) Eos # (Auto) Baso # (Auto) Abs Immat Gran (auto) Absolute Neuts (auto) Absolute Nucleated RBC 0.000 0.000 Nucleated RBC % (auto) 0.0 0.0 PT 14.3 H INR 1.2 H APTT 24.0 L Sodium 136 Potassium 3.0 L D Chloride 101 Carbon Dioxide 29 Anion Gap 9 L BUN 6 L Creatinine 0.55 Estim Creat Clear Calc 138.4 Estimated GFR > 60 Random Glucose 289 H Lactic Acid Lactic Acid F/U @ 2Hr Lactic Acid F/U @ 4Hr 2.3 H* Calcium 7.8 L Magnesium 1.5 L Total Bilirubin 2.2 H AST 30 ALT 16 Alkaline Phosphatase 166 H Ammonia 82 H C-Reactive Protein B-Natriuretic Peptide Total Protein 5.6 L Albumin 2.4 L Lipase Urine Color Urine Appearance Urine pH Ur Specific [place] Urine Protein Urine Glucose (UA) Urine Ketones Urine Blood Urine Nitrite Ur Leukocyte Esterase Urine RBC Urine WBC Ur Squamous Epith Cells Urine Bacteria Hyaline Casts Random Vancomycin Urine Opiates Screen Ur Buprenorphine Scrn Ur Oxycodone Screen Urine Methadone Screen Urine Fentanyl Screen Ur Barbiturates Screen Ur Phencyclidine Scrn Ur Amphetamines Screen U Benzodiazepines Scrn Urine Cocaine Screen U Marijuana (THC) Screen Ethyl Alcohol Blood Type Antibody Screen 11/28/24 11/28/24 11/29/24 14:02 16:03 07:14 WBC 1.8 L RBC 3.46 L Hgb 10.8 L Hct 32.7 L MCV 94.5 MCH 31.2 MCHC 33.0 RDW 16.2 H Plt Count 70 L MPV 10.2 Immature Gran % (Auto) Neut % (Auto) Lymph % (Auto) Long % (Auto) Eos % (Auto) Baso % (Auto) Lymph # (Auto) Long # (Auto) Eos # (Auto) Baso # (Auto) Abs Immat Gran (auto) Absolute Neuts (auto) Absolute Nucleated RBC 0.000 Nucleated RBC % (auto) 0.0 PT 15.9 H 16.2 H INR 1.4 H 1.4 H APTT Sodium 137 Potassium 2.9 L* Chloride 101 Carbon Dioxide 31 H Anion Gap 8 L BUN 6 L Creatinine 0.61 Estim Creat Clear Calc 124.8 Estimated GFR > 60 Random Glucose 247 H Lactic Acid Lactic Acid F/U @ 2Hr Lactic Acid F/U @ 4Hr Calcium 7.6 L Magnesium 1.6 Total Bilirubin 1.7 H AST 33 ALT 15 Alkaline Phosphatase 169 H Ammonia C-Reactive Protein B-Natriuretic Peptide Total Protein 5.8 L Albumin 2.4 L Lipase Urine Color Urine Appearance Urine pH Ur Specific [place] Urine Protein Urine Glucose (UA) Urine Ketones Urine Blood Urine Nitrite Ur Leukocyte Esterase Urine RBC Urine WBC Ur Squamous Epith Cells Urine Bacteria Hyaline Casts Random Vancomycin 16.5 Urine Opiates Screen Ur Buprenorphine Scrn Ur Oxycodone Screen Urine Methadone Screen Urine Fentanyl Screen Ur Barbiturates Screen Ur Phencyclidine Scrn Ur Amphetamines Screen U Benzodiazepines Scrn Urine Cocaine Screen U Marijuana (THC) Screen Ethyl Alcohol Blood Type Antibody Screen 11/29/24 11/30/24 11/30/24 13:59 06:48 14:00 WBC 1.8 L RBC 3.55 L Hgb 11.1 L Hct 33.7 L MCV 94.9 MCH 31.3 MCHC 32.9 RDW 16.3 H Plt Count 80 L MPV 9.9 Immature Gran % (Auto) Neut % (Auto) Lymph % (Auto) Long % (Auto) Eos % (Auto) Baso % (Auto) Lymph # (Auto) Long # (Auto) Eos # (Auto) Baso # (Auto) Abs Immat Gran (auto) Absolute Neuts (auto) Absolute Nucleated RBC 0.000 Nucleated RBC % (auto) 0.0 PT INR APTT Sodium 139 Potassium 3.5 D Chloride 104 Carbon Dioxide 28 Anion Gap 11 L BUN 4 L Creatinine 0.61 Estim Creat Clear Calc 124.8 Estimated GFR > 60 Random Glucose 263 H Lactic Acid Lactic Acid F/U @ 2Hr Lactic Acid F/U @ 4Hr Calcium 7.8 L Magnesium 1.7 Total Bilirubin 1.5 H AST 34 ALT 15 Alkaline Phosphatase 174 H Ammonia C-Reactive Protein 4.14 H B-Natriuretic Peptide Total Protein 6.1 L Albumin 2.4 L Lipase Urine Color Urine Appearance Urine pH Ur Specific [place] Urine Protein Urine Glucose (UA) Urine Ketones Urine Blood Urine Nitrite Ur Leukocyte Esterase Urine RBC Urine WBC Ur Squamous Epith Cells Urine Bacteria Hyaline Casts Random Vancomycin 11.3 L 16.4 Urine Opiates Screen Ur Buprenorphine Scrn Ur Oxycodone Screen Urine Methadone Screen Urine Fentanyl Screen Ur Barbiturates Screen Ur Phencyclidine Scrn Ur Amphetamines Screen U Benzodiazepines Scrn Urine Cocaine Screen U Marijuana (THC) Screen Ethyl Alcohol Blood Type Antibody Screen 12/01/24 12/01/24 12/01/24 07:25 07:26 09:55 WBC 2.0 L RBC 3.47 L Hgb 10.9 L Hct 33.0 L MCV 95.1 MCH 31.4 MCHC 33.0 RDW 16.6 H Plt Count 80 L MPV 10.0 Immature Gran % (Auto) Neut % (Auto) Lymph % (Auto) Long % (Auto) Eos % (Auto) Baso % (Auto) Lymph # (Auto) Long # (Auto) Eos # (Auto) Baso # (Auto) Abs Immat Gran (auto) Absolute Neuts (auto) Absolute Nucleated RBC 0.000 Nucleated RBC % (auto) 0.0 PT INR APTT Sodium 140 Potassium 3.3 Chloride 105 Carbon Dioxide 31 H Anion Gap 7 L BUN 4 L Creatinine 0.55 Estim Creat Clear Calc 138.4 Estimated GFR > 60 Random Glucose 206 H Lactic Acid Lactic Acid F/U @ 2Hr Lactic Acid F/U @ 4Hr Calcium 7.9 L Magnesium 1.7 Total Bilirubin AST ALT Alkaline Phosphatase Ammonia C-Reactive Protein B-Natriuretic Peptide Total Protein Albumin Lipase Urine Color Urine Appearance Urine pH Ur Specific [place] Urine Protein Urine Glucose (UA) Urine Ketones Urine Blood Urine Nitrite Ur Leukocyte Esterase Urine RBC Urine WBC Ur Squamous Epith Cells Urine Bacteria Hyaline Casts Random Vancomycin Urine Opiates Screen Ur Buprenorphine Scrn Ur Oxycodone Screen Urine Methadone Screen Urine Fentanyl Screen Ur Barbiturates Screen Ur Phencyclidine Scrn Ur Amphetamines Screen U Benzodiazepines Scrn Urine Cocaine Screen U Marijuana (THC) Screen Ethyl Alcohol Blood Type O Positive Antibody Screen NEGATIVE Narrative Narrative: edentulous Airway Mallampati Class: IV TM Dist: >3cm Neck ROM: Full Heart: rrr Lungs: cta Other: patir ent is critically ill with multiple medical problems Assessment and Plan Final Anesthetic Review Family History of Problems with Anesthesia: No History of Problems with Anesthesia: No NPO: Yes ASA Class: IV Final Preanesthetic Review: No Changes in Pt Med Stat, Meds/Allgs Chart Reviewed, Consent Obtained/Reviewed and Anes Risks/Benef Reviewed Patient Risk: High Procedure Risk: High Anesthetic Plan Anesthetic Plan: MAC: Disposition: Standard PACU
--- NOTE | 2024-12-01 12:59 | MHC.SHP ---
Pre-Procedural Eval Section A - 24 Hr Update-Section A only Date of Service: 12/01/24 The patient is an INPATIENT: Yes The patient has been examined within 24 hours of the surgical procedure. The History & Physical has been completed within 30 days and I have reviewed it.: Yes Section B - Complete if H&P > 30 days Chief Complaint: Portal vein thrombosus Allergies: Allergies Allergy/AdvReac Type Severity Reaction Status Date / Time No Known Allergies Allergy Verified 11/27/24 09:53 [No Known Allergies*] Plan Diagnosis/Plan: Unchanged I have reviewed the history and physical and performed a pertinent physical examination on my patient. No changes have occurred unless specified. Time Spent With Patient Time: Total time managing care of this patient today ____ minutes.
--- NOTE | 2024-12-01 13:24 | P.OP_ITS ---
Operative Note Operative Note Date of Service: 12/01/24 Narrative: Procedure: Esophagogastroduodenoscopy Endoscopist: Brenda Valadez MD Indication: splanchnic vein thrombosis Anesthesia Provider: Dr Medina Anesthesia Type: MAC ?? EGD Procedure:?? The procedure, indications, preparation and potential complications were revie wed with the patient, who indicated understanding and gave written informed consent to proceed. A physical exam was performed. []The patient was electively intubated for airway protection the anesthes iologist. The endoscope was introduced through the mouth, and advanced to the second part of duodenum. The mucosa was carefully examined on slow withdrawal of the endoscope. The patient tolerated the procedure well. There were no immediate complications.? ? EGD Findings:? * Esophagus:? Normal mucosa noted in the entire esophagus. The Z line was at 37 cm. Small varices were noted that flattened on insufflation. * Stomach:?Diffuse congestion and erythema in mosaic pattern consistent with portal hypertensive gastropathy was noted in the whole stomach. Retroflexion was performed in the cardia. No fundal varices were noted. * Duodenum:? Congestion and edema noted throughout the duodenum. Previously placed biliary and pancreatic plastic stents were noted. ? EGD Impressions:? * Small varices * Portal hypertensive gastropathy * Portal hypertensive duodenopathy * Previously placed biliary and pancreatic duct stent ?? Recommendations:?? * Start carvedilol 3.125 mg BID for variceal bleeding prophylaxis * Okay to start oral anticoagulation * Recommend CT abd/pel with IV contrast in 4 weeks from prev to r/o propagation of thromboses * As previously advised, he should also follow up with [facility], where the BD and PD stents were initially placed, for removal of these stents
--- NOTE | 2024-12-01 13:24 | W.PM.OPN ---
Operative Note Operative Note Date of Service: 12/01/24 Narrative: Procedure: Esophagogastroduodenoscopy Endoscopist: Brenda Valadez MD Indication: splanchnic vein thrombosis Anesthesia Provider: Dr Medina Anesthesia Type: MAC ?? EGD Procedure:?? The procedure, indications, preparation and potential complications were reviewed with the patient, who indicated understanding and gave written informed consent to proceed. A physical exam was performed. []The patient was electively intubated for airway protection the anesthesiologist. The endoscope was introduced through the mouth, and advanced to the second part of duodenum. The mucosa was carefully examined on slow withdrawal of the endoscope. The patient tolerated the procedure well. There were no immediate complications.? ? EGD Findings:? Esophagus:? Normal mucosa noted in the entire esophagus. The Z line was at 37 cm. Small varices were noted that flattened on insufflation. Stomach:?Diffuse congestion and erythema in mosaic pattern consistent with portal hypertensive gastropathy was noted in the whole stomach. Retroflexion was performed in the cardia. No fundal varices were noted. Duodenum:? Congestion and edema noted throughout the duodenum. Previously placed biliary and pancreatic plastic stents were noted. ? EGD Impressions:? Small varices Portal hypertensive gastropathy Portal hypertensive duodenopathy Previously placed biliary and pancreatic duct stent ?? Recommendations:?? Start carvedilol 3.125 mg BID for variceal bleeding prophylaxis Okay to start oral anticoagulation Recommend CT abd/pel with IV contrast in 4 weeks from prev to r/o propagation of thromboses As previously advised, he should also follow up with [facility], where the BD and PD stents were initially placed, for removal of these stents
[2024-12-01] MEDS: Enoxaparin Sodium 120 MG/0.8 ML SYRINGE 110 MG SUBCUT (16:54)
[2024-12-01] MEDS: Tamsulosin HCL 0.4 MG CAPSULE 0.8 MG PO (20:55)
[2024-12-01] MEDS: Sulfamethox/Trimeth 800/160 TABLET 1 TAB PO (21:21)
[2024-12-02] VITALS (7 sets, daily range): BP systolic 103–122; BP diastolic 60–69; PULSE 70–101; RESP 16–20; TEMP 36.5–37.1; O2SAT 90–94
[2024-12-02] MEDS: Enoxaparin Sodium 120 MG/0.8 ML SYRINGE 110 MG SUBCUT (06:18)
[2024-12-02 06:57] LABS: Hemoglobin 11.6 g/dl (14.0-18.0); Mean Corpuscular HGB Conc 33.1 g/dl (31.0-36.0); Mean Corpuscular Hemoglobin 31.6 pg (27.0-33.0); Mean Corpuscular Volume 95.4 fL (80.0-98.0); Red Blood Count 3.67 X10*6/uL (4.60-5.80); Red Cell Distribution Width 16.5 % (11.0-16.0)
[2024-12-02 06:58] LABS: Platelet Count 85 X10*3/uL (160-400); White Blood Count 2.4 X10*3/uL (4.8-10.8)
[2024-12-02 07:07] LABS: INTERNATIONAL NORM RATIO 1.3 (0.9-1.1); Prothrombin Time 14.4 SEC (10.9-12.4)
[2024-12-02 07:16] LABS: Alanine Aminotransferase 21 U/L (0-40); Albumin Level 2.4 g/dL (3.5-5.0); Alkaline Phosphatase 172 U/L (39-117); Anion Gap 10 (12-20); Aspartate Amino Transferase 47 U/L (5-37); Bilirubin Total 1.1 mg/dL (0.0-1.0); Blood Urea Nitrogen 4 mg/dL (9-16); Calcium 8.1 mg/dL (8.4-10.2); Carbon Dioxide 29 mmol/L (22-29); Chloride 104 mmol/L (96-108); Creatinine Clr Calc Pharmacy 124.8; Estimated Glomerular Filt Rate > 60; Glucose Random 249 mg/dL (60-115); Magnesium 1.7 mg/dL (1.6-2.6); Potassium 3.7 mmol/L (3.3-5.1); Sodium 139 mmol/L (135-145); Total Protein 6.2 g/dL (6.5-8.0)
[2024-12-02] MEDS: 0.9 % Sodium Chloride Flush 3 ML SYRINGE IVFLUSH ×3 (09:13→20:55)
[2024-12-02] MEDS: methADONE HCl 20 MG/2 ML ORAL.CONC 30 MG PO (09:14)
[2024-12-02] MEDS: Furosemide 40 MG/4 ML VIAL IVPUSH ×2 (09:14→18:02)
[2024-12-02] MEDS: nadoloL 20 MG TABLET 10 MG PO (09:14)
[2024-12-02] MEDS: Magnesium Oxide 400 MG TABLET PO ×2 (09:15→18:05)
[2024-12-02] MEDS: Gabapentin 600 MG TABLET PO ×2 (09:15→20:48)
[2024-12-02] MEDS: Sulfamethox/Trimeth 800/160 TABLET 1 TAB PO ×2 (09:15→20:47)
[2024-12-02] MEDS: rifAXIMin 550 MG TABLET PO ×2 (09:15→20:47)
[2024-12-02] MEDS: Spironolactone 25 MG TABLET 50 MG PO ×2 (09:15→18:02)
[2024-12-02] MEDS: Apixaban 5 MG TABLET PO ×2 (09:15→20:49)
[2024-12-02] MEDS: Nystatin Powder 15 GM BOTTLE 1 APPL TOPICAL ×3 (09:16→20:50)
[2024-12-02] MEDS: Ammonium Lactate 12 % Cream 140 GM TUBE 1 APPL TOPICAL ×2 (09:16→20:49)
[2024-12-02] MEDS: Lactulose 20 GM/30 ML SOLUTION 30 GM PO (09:16)
[2024-12-02] MEDS: Ferrous Sulfate 324 MG TABLET.DR PO (10:21)
--- NOTE | 2024-12-02 12:46 | HO.PM.IMPN ---
Subjective Subjective Date of Service: 12/02/24 Interval History: major complaint at this time is scrotal swelling No hematemesis, hematochezia, or melena. Review of Systems Review of Systems: Yes all other systems are reviewed and are negative Physical Exam Vital Signs: Vital Signs: Last Vital Signs Temp 98.3 F 12/02/24 11:06 Pulse 94 12/02/24 11:06 Resp 20 12/02/24 11:06 BP 104/65 12/02/24 11:06 Pulse Ox 92 12/02/24 11:06 O2 Del Method Room Air 12/02/24 11:06 O2 Flow Rate 2 12/01/24 13:30 BMI result Body Mass Index 38.4 Gen: in no acute distress HEENT: sclera anicteric, moist mucus membranes Neck: supple Lungs: clear to auscultation bilaterally Heart: regular rate and rhythm, no murmurs Abd: soft, non-tender, non-distended : extensive scrotal erythema and edema Ext: severe bilateral leg edema with chronic venous stasis changes/hyperkeratosis/hyperpigmentation Skin: warm/well-perfused Neuro: alert and oriented x3, no focal findings; no asterixis Psych: appropriate affect Objective Data Active Medications Acetaminophen (Acetaminophen 325 Mg Tablet) 650 mg PO Q6H PRN PRN Reason: Pain, Mild 1-3,fever,headache Last Admin: 11/29/24 08:57 Dose: 650 mg Documented By: MATTI Apixaban (Apixaban 5 Mg Tablet) 5 mg PO BID [facility] Last Admin: 12/02/24 09:15 Dose: 5 mg Documented By: DARIEN Calcium Carbonate (Calcium Carbonate 750 Mg Tab.Chew) 750 mg PO Q4H PRN PRN Reason: Heartburn Ferrous Sulfate (Ferrous Sulfate 324 Mg Tablet.Dr) 324 mg PO DAILY [facility] Last Admin: 12/02/24 10:21 Dose: 324 mg Documented By: DARIEN Furosemide (Furosemide 40 Mg/4 Ml Vial) 40 mg IVPUSH BID@0900,1800 [facility]; Protocol Last Admin: 12/02/24 09:14 Dose: 40 mg Documented By: DARIEN Gabapentin (Gabapentin 600 Mg Tablet) 600 mg PO BID [facility] Last Admin: 12/02/24 09:15 Dose: 600 mg Documented By: DARIEN Lactic Acid (Ammonium Lactate 12 % Cream 140 Gm Tube) 1 appl TOPICAL BID [facility]; Protocol Last Admin: 12/02/24 09:16 Dose: 1 appl Documented By: DARIEN Lactulose (Lactulose 20 Gm/30 Ml Solution) 30 gm PO TID [facility] Last Admin: 12/02/24 09:16 Dose: 30 gm Documented By: DARIEN Magnesium Hydroxide (Milk Of Magnesia 30 Ml Oral.Susp) 30 ml PO DAILY PRN PRN Reason: Constipation Magnesium Oxide (Magnesium Oxide 400 Mg Tablet) 400 mg PO BIDPC [facility] Last Admin: 12/02/24 09:15 Dose: 400 mg Documented By: DARIEN Melatonin (Melatonin 3 Mg Tablet) 6 mg PO BEDTIME PRN PRN Reason: Insomnia Methadone HCl (Methadone Hcl 20 Mg/2 Ml Oral.Conc) 30 mg PO DAILY@0800 [facility] Last Admin: 12/02/24 09:14 Dose: 30 mg Documented By: DARIEN Co-signed By: JO Morphine Sulfate (Morphine Sulfate 2 Mg/Ml Cartridge) 2 mg IVPUSH Q4H PRN; Protocol PRN Reason: Pain, Severe (Pain Scale 7-10) Nadolol (Nadolol 20 Mg Tablet) 10 mg PO DAILY [facility]; Protocol Last Admin: 12/02/24 09:14 Dose: 10 mg Documented By: DARIEN Nystatin (Nystatin Powder 15 Gm Bottle) 1 appl TOPICAL TID [facility]; Protocol Last Admin: 12/02/24 09:16 Dose: 1 appl Documented By: DARIEN Oxycodone HCl (Oxycodone Hcl Immed Release 5 Mg Tablet) 5 mg PO Q4H PRN PRN Reason: Pain, Moderate(Pain Scale 4-6) Last Admin: 12/01/24 21:04 Dose: 5 mg Documented By: GRUPO Rifaximin (Rifaximin 550 Mg Tablet) 550 mg PO BID [facility] Last Admin: 12/02/24 09:15 Dose: 550 mg Documented By: DARIEN Sodium Chloride (0.9 % Sodium Chloride Flush 3 Ml Syringe) [address] [facility] Last Admin: 12/02/24 09:13 Dose: 3 ml Documented By: DARIEN Spironolactone (Spironolactone 25 Mg Tablet) 50 mg PO BID@0900,1800 [facility]; Protocol Tamsulosin HCl (Tamsulosin Hcl 0.4 Mg Capsule) 0.8 mg PO BEDTIME [facility] Last Admin: 12/01/24 20:55 Dose: 0.8 mg Documented By: GRUPO Trimethoprim/Sulfamethoxazole (Sulfamethox/Trimeth 800/160 Tablet) 1 tab PO Q12H [facility] Last Admin: 12/02/24 09:15 Dose: 1 tab Documented By: DARIEN Labs 12/02/24 06:33 12/02/24 06:33 Labs: Laboratory Results - last 24 hr 12/02/24 06:33 MCV 95.4 MCH 31.6 MCHC 33.1 RDW 16.5 H Plt Count 85 L MPV 10.0 Absolute Nucleated RBC 0.000 Nucleated RBC % (auto) 0.0 PT 14.4 H INR 1.3 H Anion Gap 10 L Estim Creat Clear Calc 124.8 Estimated GFR > 60 Random Glucose 249 H Calcium 8.1 L Magnesium 1.7 Total Bilirubin 1.1 H AST 47 H ALT 21 Alkaline Phosphatase 172 H Total Protein 6.2 L Albumin 2.4 L Microbiology Microbiology Results: Microbiology 11/30/24 06:48 Blood Culture - Preliminary Blood - Venous No growth after 48 hours. Assessment and Plan (1) Portal vein thrombosis: Status: Chronic Plan d6 for 69yo M with decompensated HCV/EtOH cirrhosis, hx variceal bleeding s/p TIPS, hx portal venous thrombosis previously anticoagulated with enoxaparin, polysubstance abuse, medication noncompliance; presenting with worsening leg and scrotal swelling; found to have sepsis from scrotal cellulitis + pyelonephritis as well as new portal/splenic/superior mesenteric vein thrombosis; found to have Acenitobacter bacteremia + Klebsiella UTI portal, splenic, and superior mesenteric vein thrombosis - Heme consulted: no thrombectomy recommended; per GI OK to transition from enoxaparin to apixaban now sepsis due to scrotal cellulitis, Klebsiella pneumoniae pyelonephritis, and Acenitobacter bacteremia - was on vancomycin + piperacillin-tazobactam 11/27-11/30. changed to meropenem 11/30-12/02. Repeat BCx 11/30 clear. Per ID, 14d of SMX-TMP, started 12/02, end date 12/16 - Urology following, no surgery indicated decompensated HCV/EtOH cirrhosis with peripheral and scrotal edema - continue IV furosemide, increase PO spironolactone; monitor electrolytes daily - EGD done 12/[address] Valadez: EGD Impressions:? Small varices Portal hypertensive gastropathy Portal hypertensive duodenopathy Previously placed biliary and pancreatic duct stent Recommendations:?? Start carvedilol 3.125 mg BID for variceal bleeding prophylaxis Okay to start oral anticoagulation Recommend CT abd/pel with IV contrast in 4 weeks from prev to r/o propagation of thromboses As previously advised, he should also follow up with [facility], where the BD and PD stents were initially placed, for removal of these stents - BP was too low to start Coreg; giving nadolol instead hypoK - repleted hypoMg - repleted; continue maintenance dosing hepatic encephalopathy - continue rifaximin and lactulose pancytopenia due to cirrhosis - continue to monitor counts, which are improving ROMAN - continue PO Fe neuropathic pain - gabapentin polysubstance abuse - Addiction Medicine consulted; continue methadone - HBV immune from prior infection, recent HIV serology + HCV viral load negative VTE ppx - apixaban dispo - PT consulted, plan STR. Discussed with HCP/niece Chantel who would like him transitioned to LTC as he is homeless In my clinical judgment, the patient requires continued inpatient hospitalization for the following reasons: IV ABX, IV diuretics, bacteremia, EGD Total time managing care of this patient today: 45 minutes. Quality Stroke Does the patient have a stroke diagnosis?: No VTE Prior VTE?: No VTE Risk Level:: Medical - moderate - high VTE Device Contraindication: Treatment Not Indicated VTE Drug Contraindication: N/A - Med Ordered
[2024-12-02] MEDS: Tamsulosin HCL 0.4 MG CAPSULE 0.8 MG PO (20:47)
[2024-12-02] MEDS: oxyCODONE HCl Immed Release 5 MG TABLET PO (20:52)
[2024-12-03] VITALS (8 sets, daily range): BP systolic 94–112; BP diastolic 58–64; PULSE 64–73; RESP 12–20; TEMP 36.4–37.2; O2SAT 92–93
--- NOTE | 2024-12-03 07:55 | HO.PM.IMPN ---
Subjective Subjective Date of Service: 12/03/24 Interval History: feeling better, still with 7/10 pain and significant scrotal swelling but no difficulty with urination otherwise no complaints Review of Systems Review of Systems: Yes all other systems are reviewed and are negative Physical Exam Vital Signs: Vital Signs: Last Vital Signs Temp 98.9 F 12/03/24 07:08 Pulse 73 12/03/24 07:08 Resp 20 12/03/24 07:08 BP 98/60 12/03/24 07:08 Pulse Ox 93 12/03/24 07:08 O2 Del Method Room Air 12/03/24 07:08 O2 Flow Rate 2 12/01/24 13:30 BMI result Body Mass Index 38.4 Gen: in no acute distress HEENT: sclera anicteric, moist mucus membranes Neck: supple Lungs: clear to auscultation bilaterally Heart: regular rate and rhythm, no murmurs Abd: soft, non-tender, non-distended : extensive scrotal erythema and edema Ext: severe bilateral leg edema with chronic venous stasis changes/hyperkeratosis/hyperpigmentation Skin: warm/well-perfused Neuro: alert and oriented x3, no focal findings; no asterixis Psych: appropriate affect Objective Data Active Medications Acetaminophen (Acetaminophen 325 Mg Tablet) 650 mg PO Q6H PRN PRN Reason: Pain, Mild 1-3,fever,headache Last Admin: 11/29/24 08:57 Dose: 650 mg Documented By: MATTI Apixaban (Apixaban 5 Mg Tablet) 5 mg PO BID [facility] Last Admin: 12/02/24 20:49 Dose: 5 mg Documented By: GRUPO Calcium Carbonate (Calcium Carbonate 750 Mg Tab.Chew) 750 mg PO Q4H PRN PRN Reason: Heartburn Ferrous Sulfate (Ferrous Sulfate 324 Mg Tablet.Dr) 324 mg PO DAILY [facility] Last Admin: 12/02/24 10:21 Dose: 324 mg Documented By: DARIEN Furosemide (Furosemide 40 Mg/4 Ml Vial) 40 mg IVPUSH BID@0900,1800 [facility]; Protocol Last Admin: 12/02/24 18:02 Dose: 40 mg Documented By: DARIEN Gabapentin (Gabapentin 600 Mg Tablet) 600 mg PO BID [facility] Last Admin: 12/02/24 20:48 Dose: 600 mg Documented By: GRUPO Lactic Acid (Ammonium Lactate 12 % Cream 140 Gm Tube) 1 appl TOPICAL BID [facility]; Protocol Last Admin: 12/02/24 20:49 Dose: 1 appl Documented By: GRUPO Lactulose (Lactulose 20 Gm/30 Ml Solution) 30 gm PO TID [facility] Last Admin: 12/02/24 20:54 Dose: Not Given Documented By: GRUPO Non-Admin Reason: Patient Refused Magnesium Hydroxide (Milk Of Magnesia 30 Ml Oral.Susp) 30 ml PO DAILY PRN PRN Reason: Constipation Magnesium Oxide (Magnesium Oxide 400 Mg Tablet) 400 mg PO BIDPC [facility] Last Admin: 12/02/24 18:05 Dose: 400 mg Documented By: DARIEN Melatonin (Melatonin 3 Mg Tablet) 6 mg PO BEDTIME PRN PRN Reason: Insomnia Methadone HCl (Methadone Hcl 20 Mg/2 Ml Oral.Conc) 30 mg PO DAILY@0800 [facility] Last Admin: 12/02/24 09:14 Dose: 30 mg Documented By: DARIEN Co-signed By: JO Morphine Sulfate (Morphine Sulfate 2 Mg/Ml Cartridge) 2 mg IVPUSH Q4H PRN; Protocol PRN Reason: Pain, Severe (Pain Scale 7-10) Nadolol (Nadolol 20 Mg Tablet) 10 mg PO DAILY [facility]; Protocol Last Admin: 12/02/24 09:14 Dose: 10 mg Documented By: DARIEN Nystatin (Nystatin Powder 15 Gm Bottle) 1 appl TOPICAL TID [facility]; Protocol Last Admin: 12/02/24 20:50 Dose: 1 appl Documented By: GRUPO Oxycodone HCl (Oxycodone Hcl Immed Release 5 Mg Tablet) 5 mg PO Q4H PRN PRN Reason: Pain, Moderate(Pain Scale 4-6) Last Admin: 12/02/24 20:52 Dose: 5 mg Documented By: GRUPO Rifaximin (Rifaximin 550 Mg Tablet) 550 mg PO BID [facility] Last Admin: 12/02/24 20:47 Dose: 550 mg Documented By: GRUPO Sodium Chloride (0.9 % Sodium Chloride Flush 3 Ml Syringe) [facility] Last Admin: 12/02/24 20:55 Dose: 3 ml Documented By: GRUPO Spironolactone (Spironolactone 25 Mg Tablet) 50 mg PO BID@0900,1800 [facility]; Protocol Last Admin: 12/02/24 18:02 Dose: 50 mg Documented By: DARIEN Tamsulosin HCl (Tamsulosin Hcl 0.4 Mg Capsule) 0.8 mg PO BEDTIME [facility] Last Admin: 12/02/24 20:47 Dose: 0.8 mg Documented By: GRUPO Trimethoprim/Sulfamethoxazole (Sulfamethox/Trimeth 800/160 Tablet) 1 tab PO Q12H [facility] Last Admin: 12/02/24 20:47 Dose: 1 tab Documented By: GRUPO Labs 12/03/24 07:30 12/03/24 07:30 Microbiology Microbiology Results: Microbiology 11/27/24 11:04 Blood Culture - Final Blood - Venous No growth after 5 days. 11/30/24 06:48 Blood Culture - Preliminary Blood - Venous No growth after 48 hours. Assessment and Plan (1) Portal vein thrombosis: Status: Chronic Plan d6 for 69yo M with decompensated HCV/EtOH cirrhosis, hx variceal bleeding s/p TIPS, hx portal venous thrombosis previously anticoagulated with enoxaparin, polysubstance abuse, medication noncompliance; presenting with worsening leg and scrotal swelling; found to have sepsis from scrotal cellulitis + pyelonephritis as well as new portal/splenic/superior mesenteric vein thrombosis; found to have Acenitobacter bacteremia + Klebsiella UTI portal, splenic, and superior mesenteric vein thrombosis - Heme consulted: no thrombectomy recommended; per GI OK to transition from enoxaparin to apixaban now sepsis due to scrotal cellulitis, Klebsiella pneumoniae pyelonephritis, and Acenitobacter bacteremia - improving but still with significant scrotal and penile edema - was on vancomycin + piperacillin-tazobactam 11/27-11/30. changed to meropenem 11/30-12/02. Repeat BCx 11/30 clear. Per ID, 14d of SMX-TMP, started 12/02, end date 12/16 - Urology following, no surgery indicated decompensated HCV/EtOH cirrhosis with peripheral and scrotal edema - continue IV furosemide, increase PO spironolactone; monitor electrolytes daily - EGD done 12/[address] Valadez: EGD Impressions:? Small varices Portal hypertensive gastropathy Portal hypertensive duodenopathy Previously placed biliary and pancreatic duct stent Recommendations:?? Start carvedilol 3.125 mg BID for variceal bleeding prophylaxis Okay to start oral anticoagulation Recommend CT abd/pel with IV contrast in 4 weeks from prev to r/o propagation of thromboses As previously advised, he should also follow up with [facility], where the BD and PD stents were initially placed, for removal of these stents - BP was too low to start Coreg; giving nadolol instead hypoK - repleted hypoMg - repleted; continue maintenance dosing hepatic encephalopathy - continue rifaximin and lactulose pancytopenia due to cirrhosis - continue to monitor counts, which are improving ROMAN - continue PO Fe neuropathic pain - gabapentin polysubstance abuse - Addiction Medicine consulted; continue methadone - HBV immune from prior infection, recent HIV serology + HCV viral load negative VTE ppx - apixaban dispo - PT consulted, plan STR. Discussed with HCP/niece Chantel who would like him transitioned to LTC as he is homeless In my clinical judgment, the patient requires continued inpatient hospitalization for the following reasons: cellulitis, bacteremia. Placement Total time managing care of this patient today: 45 minutes. Quality Stroke Does the patient have a stroke diagnosis?: No VTE Prior VTE?: No VTE Risk Level:: Medical - moderate - high VTE Device Contraindication: Treatment Not Indicated VTE Drug Contraindication: N/A - Med Ordered
[2024-12-03] MEDS: 0.9 % Sodium Chloride Flush 3 ML SYRINGE IVFLUSH ×3 (08:05→19:46)
[2024-12-03] MEDS: Sulfamethox/Trimeth 800/160 TABLET 1 TAB PO ×2 (08:05→19:46)
[2024-12-03] MEDS: Magnesium Oxide 400 MG TABLET PO ×2 (08:05→17:53)
[2024-12-03] MEDS: methADONE HCl 20 MG/2 ML ORAL.CONC 30 MG PO (08:05)
[2024-12-03 08:23] LABS: Basophils Percent Auto 1.7 % (0-2); Eosinophils Absolute Auto 0.1 X10*3/uL (0.0-0.4); Eosinophils Percent Auto 5.2 % (0-4); Hematocrit 34.5 % (42.0-52.0); Hemoglobin 11.6 g/dl (14.0-18.0); Imm Gran Abs Auto 0.02 X10*3/uL (0.00-0.03); Imm Gran Pct Auto 0.9 % (0.0-0.4); Lymphocytes Absolute Auto 0.5 X10*3/uL (1.2-4.9); MANUAL DIFF FLAG SCAN; Mean Corpuscular HGB Conc 33.6 g/dl (31.0-36.0); Mean Corpuscular Hemoglobin 31.9 pg (27.0-33.0); Mean Corpuscular Volume 94.8 fL (80.0-98.0); Mean Platelet Volume 10.4 fL (9.4-12.4); Monocytes Absolute Auto 0.2 X10*3/uL (0.1-1.2); Monocytes Percent Auto 7.8 % (2-11); Neutrophils Absolute Auto 1.4 x10*3/uL (2.0-8.3); Neutrophils Percent Auto 61.4 % (45-73); Red Blood Count 3.64 X10*6/uL (4.60-5.80); Red Cell Distribution Width 16.2 % (11.0-16.0); SCAN SMEAR FLAG 1
[2024-12-03 08:26] LABS: Platelet Count 91 X10*3/uL (160-400); White Blood Count 2.3 X10*3/uL (4.8-10.8)
[2024-12-03 08:39] LABS: Alanine Aminotransferase 27 U/L (0-40); Albumin Level 2.4 g/dL (3.5-5.0); Alkaline Phosphatase 191 U/L (39-117); Anion Gap 9 (12-20); Aspartate Amino Transferase 66 U/L (5-37); Bilirubin Direct 0.5 mg/dL (0.0-0.5); Bilirubin Total 1.1 mg/dL (0.0-1.0); Blood Urea Nitrogen 6 mg/dL (9-16); Calcium 8.3 mg/dL (8.4-10.2); Carbon Dioxide 31 mmol/L (22-29); Chloride 101 mmol/L (96-108); Creatinine Clr Calc Pharmacy 113.6; Estimated Glomerular Filt Rate > 60; Glucose Random 246 mg/dL (60-115); Magnesium 1.7 mg/dL (1.6-2.6); Potassium 3.5 mmol/L (3.3-5.1); Sodium 137 mmol/L (135-145); Total Protein 6.2 g/dL (6.5-8.0)
[2024-12-03 08:47] LABS: SLIDE REVIEW VERIFIED
[2024-12-03] MEDS: Ammonium Lactate 12 % Cream 140 GM TUBE 1 APPL TOPICAL ×2 (09:50→19:46)
[2024-12-03] MEDS: Gabapentin 600 MG TABLET PO ×2 (09:50→19:45)
[2024-12-03] MEDS: Furosemide 40 MG/4 ML VIAL IVPUSH ×2 (09:51→17:52)
[2024-12-03] MEDS: Lactulose 20 GM/30 ML SOLUTION 30 GM PO (09:51)
[2024-12-03] MEDS: nadoloL 20 MG TABLET 10 MG PO (09:52)
[2024-12-03] MEDS: rifAXIMin 550 MG TABLET PO ×2 (09:52→19:45)
[2024-12-03] MEDS: Spironolactone 25 MG TABLET 50 MG PO ×2 (09:52→17:52)
[2024-12-03] MEDS: Nystatin Powder 15 GM BOTTLE 1 APPL TOPICAL ×3 (09:53→19:47)
[2024-12-03] MEDS: Apixaban 5 MG TABLET PO ×2 (09:53→19:45)
[2024-12-03] MEDS: Ferrous Sulfate 324 MG TABLET.DR PO (09:54)
--- NOTE | 2024-12-03 10:14 | HO.POSTANES ---
Post Anesthesia Evaluation Post Anesthesia Evaluation Date of Service: 12/03/24 Vital Signs: Vital Signs Temp Pulse Resp BP Pulse Ox O2 Del Method 12/03/24 09:52 69 103/59 L 12/03/24 09:52 103/59 L 12/03/24 09:51 103/59 L 12/03/24 07:08 98.9 F 73 20 98/60 93 Room Air 12/03/24 03:32 97.5 F 71 16 112/63 93 Room Air 12/02/24 23:37 97.7 F 76 16 122/61 92 Room Air Anesthesia: TIVA Mental Status: Awake Pain Control: Satisfactory Nausea/Vomiting: None Hydration: Adequate Anesthesia-Related Issues: No Anes. Related Issues
[2024-12-03 12:23] LABS: Creatinine Clr Calc Pharmacy 107.2; Estimated Glomerular Filt Rate > 60
[2024-12-03] MEDS: Tamsulosin HCL 0.4 MG CAPSULE 0.8 MG PO (19:45)
[2024-12-03] MEDS: oxyCODONE HCl Immed Release 5 MG TABLET PO (19:46)
[2024-12-04] VITALS (10 sets, daily range): BP systolic 95–137; BP diastolic 57–66; PULSE 62–68; RESP 16–20; TEMP 36.6–37; O2SAT 92–95
[2024-12-04 06:46] LABS: Creatinine Clr Calc Pharmacy 95.2; Estimated Glomerular Filt Rate > 60
--- NOTE | 2024-12-04 09:28 | P.PNIM_ITS ---
Subjective Subjective Date of Service: 12/04/24 Interval History: feeling better, pain is better and significant scrotal swelling but no difficulty with urination otherwise no other complaints Physical Exam 2 Vital Signs: Vital Signs: Last Vital Signs Temp 98.3 F 12/04/24 08:00 Pulse 66 12/04/24 08:00 Resp 18 12/04/24 08:00 BP 106/63 12/04/24 08:00 Pulse Ox 93 12/04/24 08:00 O2 Del Method Room Air 12/04/24 08:00 O2 Flow Rate 2 12/01/24 13:30 BMI result Body Mass Index 38.4 Gen: in no acute distress Lungs: clear to auscultation bilaterally Heart: regular rate and rhythm, no murmurs Abd: soft, non-tender, non-distended : extensive scrotal erythema and edema Ext: severe bilateral leg edema with chronic venous stasis changes/hyperkeratosis/hyperpigmentation Skin: warm/well-perfused Neuro: alert and oriented x3, no focal findings; no asterixis Psych: appropriate affect Objective Data Active Medications Acetaminophen (Acetaminophen 325 Mg Tablet) 650 mg PO Q6H PRN PRN Reason: Pain, Mild 1-3,fever,headache Last Admin: 11/29/24 08:57 Dose: 650 mg Documented By: MATTI Apixaban (Apixaban 5 Mg Tablet) 5 mg PO BID [facility] Last Admin: 12/03/24 19:45 Dose: 5 mg Documented By: JOCELYNE Calcium Carbonate (Calcium Carbonate 750 Mg Tab.Chew) 750 mg PO Q4H PRN PRN Reason: Heartburn Ferrous Sulfate (Ferrous Sulfate 324 Mg Tablet.) 324 mg PO DAILY [facility] Last Admin: 12/03/24 09:54 Dose: 324 mg Documented By: DARIEN Furosemide (Furosemide 40 Mg/4 Ml Vial) 40 mg IVPUSH BID@0900,1800 [facility]; Protocol Last Admin: 12/03/24 17:52 Dose: 40 mg Documented By: DARIEN Gabapentin (Gabapentin 600 Mg Tablet) 600 mg PO BID [facility] Last Admin: 12/03/24 19:45 Dose: 600 mg Documented By: JOCELYNE Lactic Acid (Ammonium Lactate 12 % Cream 140 Gm Tube) 1 appl TOPICAL BID [facility]; Protocol Last Admin: 12/03/24 19:46 Dose: 1 appl Documented By: JOCELYNE Lactulose (Lactulose 20 Gm/30 Ml Solution) 30 gm PO TID [facility] Last Admin: 12/03/24 19:52 Dose: Not Given Documented By: JOCELYNE Non-Admin Reason: Patient Refused Magnesium Hydroxide (Milk Of Magnesia 30 Ml Oral.Susp) 30 ml PO DAILY PRN PRN Reason: Constipation Magnesium Oxide (Magnesium Oxide 400 Mg Tablet) 400 mg PO BIDPC [facility] Last Admin: 12/03/24 17:53 Dose: 400 mg Documented By: DARIEN Melatonin (Melatonin 3 Mg Tablet) 6 mg PO BEDTIME PRN PRN Reason: Insomnia Methadone HCl (Methadone Hcl 20 Mg/2 Ml Oral.Conc) 30 mg PO DAILY@0800 [facility] Last Admin: 12/03/24 08:05 Dose: 30 mg Documented By: DARIEN Co-signed By: JO Nadolol (Nadolol 20 Mg Tablet) 10 mg PO DAILY [facility]; Protocol Last Admin: 12/03/24 09:52 Dose: 10 mg Documented By: DARIEN Nystatin (Nystatin Powder 15 Gm Bottle) 1 appl TOPICAL TID [facility]; Protocol Last Admin: 12/03/24 19:47 Dose: 1 appl Documented By: JOCELYNE Rifaximin (Rifaximin 550 Mg Tablet) 550 mg PO BID [facility] Last Admin: 12/03/24 19:45 Dose: 550 mg Documented By: JOCELYNE Sodium Chloride (0.9 % Sodium Chloride Flush 3 Ml Syringe) [facility] Last Admin: 12/03/24 19:46 Dose: 3 ml Documented By: JOCELYNE Spironolactone (Spironolactone 25 Mg Tablet) 50 mg PO BID@0900,1800 [facility]; Protocol Last Admin: 12/03/24 17:52 Dose: 50 mg Documented By: DARIEN Tamsulosin HCl (Tamsulosin Hcl 0.4 Mg Capsule) 0.8 mg PO BEDTIME [facility] Last Admin: 12/03/24 19:45 Dose: 0.8 mg Documented By: JOCELYNE Trimethoprim/Sulfamethoxazole (Sulfamethox/Trimeth 800/160 Tablet) 1 tab PO Q12H [facility] Last Admin: 12/03/24 19:46 Dose: 1 tab Documented By: JOCELYNE Labs 12/03/24 07:30 12/04/24 06:15 Labs: Laboratory Results - last 24 hr 12/03/24 12/04/24 07:29 06:15 Estim Creat Clear Calc 107.2 95.2 Estimated GFR > 60 > 60 Assessment and Plan (1) Portal vein thrombosis: Status: Chronic Plan 69yo M with decompensated HCV/EtOH cirrhosis, hx variceal bleeding s/p TIPS, hx portal venous thrombosis previously anticoagulated with enoxaparin, polysubstance abuse, medication noncompliance; presenting with worsening leg and scrotal swelling; found to have sepsis from scrotal cellulitis + pyelonephritis as well as new portal/splenic/superior mesenteric vein thrombosis; found to have Acenitobacter bacteremia + Klebsiella UTI portal, splenic, and superior mesenteric vein thrombosis - Heme consulted: no thrombectomy recommended; was on lovenox and changed to apixiban 12/02 sepsis due to scrotal cellulitis, Klebsiella pneumoniae pyelonephritis, and Acenitobacter bacteremia - improving but still with significant scrotal and penile edema - was on vancomycin + piperacillin-tazobactam 11/27-11/30. changed to meropenem 11/30-12/02. Repeat BCx 11/30 clear. Per ID, 14d of SMX-TMP, started 12/02, end date 12/16 - Urology following, no surgery indicated decompensated HCV/EtOH cirrhosis with peripheral and scrotal edema - continue IV furosemide, increase PO spironolactone; monitor electrolytes daily - EGD done 12/[address] Valadez: EGD Impressions:? * Small varices * Portal hypertensive gastropathy * Portal hypertensive duodenopathy * Previously placed biliary and pancreatic duct stent Recommendations:?? * Start carvedilol 3.125 mg BID for variceal bleeding prophylaxis * Okay to start oral anticoagulation * Recommend CT abd/pel with IV contrast in 4 weeks from prev to r/o propagation of thromboses * As previously advised, he should also follow up with [facility], where the BD and PD stents were initially placed, for removal of these stents - BP was too low to start Coreg; giving nadolol instead hypoK - repleted hypoMg - repleted; continue maintenance dosing hepatic encephalopathy - continue rifaximin and lactulose pancytopenia due to cirrhosis - continue to monitor counts, which are improving ROMAN - continue PO Fe neuropathic pain - gabapentin polysubstance abuse - Addiction Medicine consulted; continue methadone - HBV immune from prior infection, recent HIV serology + HCV viral load negative VTE ppx - apixaban dispo - PT consulted, plan STR. Discussed with HCP/niece Chantel who would like him transitioned to LTC as he is homeless In my clinical judgment, the patient requires continued inpatient hospitalization for the following reasons: cellulitis, bacteremia. Placement Total time managing care of this patient today: 45 minutes. Quality Stroke Does the patient have a stroke diagnosis?: No VTE Prior VTE?: No VTE Risk Level:: Medical - moderate - high VTE Device Contraindication: Treatment Not Indicated VTE Drug Contraindication: N/A - Med Ordered
[2024-12-04] MEDS: Spironolactone 25 MG TABLET 50 MG PO (09:50)
[2024-12-04] MEDS: Sulfamethox/Trimeth 800/160 TABLET 1 TAB PO ×2 (09:50→19:54)
[2024-12-04] MEDS: Gabapentin 600 MG TABLET PO ×2 (09:51→19:54)
[2024-12-04] MEDS: Ferrous Sulfate 324 MG TABLET.DR PO (09:51)
[2024-12-04] MEDS: rifAXIMin 550 MG TABLET PO ×2 (09:51→19:54)
[2024-12-04] MEDS: Furosemide 40 MG/4 ML VIAL IVPUSH (09:51)
[2024-12-04] MEDS: Magnesium Oxide 400 MG TABLET PO ×2 (09:51→16:34)
[2024-12-04] MEDS: nadoloL 20 MG TABLET 10 MG PO (09:51)
[2024-12-04] MEDS: Apixaban 5 MG TABLET PO ×2 (09:51→19:54)
[2024-12-04] MEDS: Nystatin Powder 15 GM BOTTLE 1 APPL TOPICAL ×3 (09:52→19:56)
[2024-12-04] MEDS: methADONE HCl 20 MG/2 ML ORAL.CONC 30 MG PO (09:52)
[2024-12-04] MEDS: 0.9 % Sodium Chloride Flush 3 ML SYRINGE IVFLUSH ×3 (09:52→20:01)
[2024-12-04] MEDS: Ammonium Lactate 12 % Cream 140 GM TUBE 1 APPL TOPICAL ×2 (09:52→19:57)
[2024-12-04 10:26] LABS: Anion Gap 10 (12-20); Carbon Dioxide 31 mmol/L (22-29); Chloride 99 mmol/L (96-108); Potassium 3.7 mmol/L (3.3-5.1); Sodium 136 mmol/L (135-145)
--- NOTE | 2024-12-04 12:46 | MHC.CM.PN ---
Per [facility]OUNDS discussion, Patient is medically cleared for dc to SNF/STR ; [facility] is initiating [facility] auth and CM will begin the Guest Dosing process.
--- NOTE | 2024-12-04 13:19 | MHC.CM.PN ---
CM spoke with [employer] [facility] [employer] @ [phone] and faxed all requested information to them @ [phone] to begin the process for Methadone Guest dosing. CM will follow.
--- NOTE | 2024-12-04 13:30 | MHC.CM.PN ---
CM attempted to speak with [facility], to request that they send the requested documentation for Guest Dosing to [facility] but CM as only able to leave a detailed message. CM will follow.
[2024-12-04] MEDS: Lactulose 20 GM/30 ML SOLUTION 30 GM PO (16:34)
--- NOTE | 2024-12-04 17:17 | W.PM.IDCN ---
History of Present Illness Data of Consult Service Date: 12/04/24 Requesting physician: Timi Forman Primary Care Provider: MD JERROD Damon Reason for consult: chronic leg swelling He comes in with three days more leg swelling. He has scrotal swelling as ewll. He is homeless. He has leukopenia and liver disease apparently. Review of Systems Review of Systems: Yes all other systems are reviewed and are negative PMFSH Past Medical History Medical History Portal vein thrombosis Opioid use disorder Alcohol use disorder Perforated gallbladder Cirrhosis Anemia Ascites Anasarca Pancytopenia Edema of both lower legs Elevated liver enzymes Polysubstance abuse Splenomegaly Pancytopenia Portal vein thrombosis HTN (hypertension) Family History Family history: reviewed and not pertinent Surgical History Surgical History S/P TIPS (transjugular intrahepatic portosystemic shunt) Social History Social History Household Members: None Household Members Other:: Patient is homeless. Stays with friends at their apartment Housing: Homeless Are you a primary career portals teacher to a significant other at home: No Do you presently have visiting nurse or other home services: No Unable to assess alcohol history related to: Unable to respond Alcohol intake: current Alcohol intake frequency: 3 or more drinks per day Alcohol type: beer Comment: 1:1 sitter Patient Tobacco Use Status: Current everyday Tobacco user Tobacco use type: Cigarette Cigarette Packs Per Day: 0.25 Cigarettes Per Day: 3 Smoked in Last 30 Days: Yes e-Cigarette/Vaping Use: Never Used Patient Interested in Nicotine Replacement: No Patient Given Instructions on How to Stop Smoking: No Second Hand Smoke Exposure: No Use of substances other than those prescribed or required for medical reasons: Yes Substance Use Type: Heroin Substance Use Type Other:: last use Wednesday11/27/24 Substance Use Frequency: Daily Currently Displaying Signs/Symptoms of Drug Intoxication Withdrawal: No Have you been hit, kicked, punched, or otherwise hurt by someone within the past year? If so, by whom?: No Do you feel safe in your current relationship?: Yes Is there a partner from a previous relationship who is making you feel unsafe now?: No Are you made to feel afraid or neglected: No Are you DNR?: No Advance Directives: Yes Advance Directives Information Provided: No Advance Directives on File: Yes Advance Directives Date on File: 08/22/22 Do you have a plan to hurt others: No Plan Recently lost weight without trying: Unsure Eating poorly because of decreased appetite: No Nutrition Risks: No Nutritional Risk Poor oral hygiene: Yes service: No Current occupational status: retired Current occupation: rt handed Meds Allergies Allergy/AdvReac Type Severity Reaction Status Date / Time No Known Allergies Allergy Verified 11/27/24 09:53 [No Known Allergies*] Active Medications: Current Medications Acetaminophen (Acetaminophen 325 Mg Tablet) 650 mg PO Q6H PRN PRN Reason: Pain, Mild 1-3,fever,headache Last Admin: 11/29/24 08:57 Dose: 650 mg Apixaban (Apixaban 5 Mg Tablet) 5 mg PO BID [facility] Last Admin: 12/04/24 09:51 Dose: 5 mg Calcium Carbonate (Calcium Carbonate 750 Mg Tab.Chew) 750 mg PO Q4H PRN PRN Reason: Heartburn Ferrous Sulfate (Ferrous Sulfate 324 Mg Tablet.Dr) 324 mg PO DAILY [facility] Last Admin: 12/04/24 09:51 Dose: 324 mg Furosemide (Furosemide 40 Mg/4 Ml Vial) 40 mg IVPUSH BID@0900,1800 [facility]; Protocol Last Admin: 12/04/24 09:51 Dose: 40 mg Gabapentin (Gabapentin 600 Mg Tablet) 600 mg PO BID [facility] Last Admin: 12/04/24 09:51 Dose: 600 mg Lactic Acid (Ammonium Lactate 12 % Cream 140 Gm Tube) 1 appl TOPICAL BID [facility]; Protocol Last Admin: 12/04/24 09:52 Dose: 1 appl Lactulose (Lactulose 20 Gm/30 Ml Solution) 30 gm PO TID [facility] Last Admin: 12/04/24 16:34 Dose: 30 gm Magnesium Hydroxide (Milk Of Magnesia 30 Ml Oral.Susp) 30 ml PO DAILY PRN PRN Reason: Constipation Magnesium Oxide (Magnesium Oxide 400 Mg Tablet) 400 mg PO BIDPC [facility] Last Admin: 12/04/24 16:34 Dose: 400 mg Melatonin (Melatonin 3 Mg Tablet) 6 mg PO BEDTIME PRN PRN Reason: Insomnia Methadone HCl (Methadone Hcl 20 Mg/2 Ml Oral.Conc) 30 mg PO DAILY@0800 [facility] Last Admin: 12/04/24 09:52 Dose: 30 mg Nadolol (Nadolol 20 Mg Tablet) 10 mg PO DAILY [facility]; Protocol Last Admin: 12/04/24 09:51 Dose: 10 mg Nystatin (Nystatin Powder 15 Gm Bottle) 1 appl TOPICAL TID [facility]; Protocol Last Admin: 12/04/24 16:34 Dose: 1 appl Rifaximin (Rifaximin 550 Mg Tablet) 550 mg PO BID [facility] Last Admin: 12/04/24 09:51 Dose: 550 mg Sodium Chloride (0.9 % Sodium Chloride Flush 3 Ml Syringe) 3 ml IVFLUSH QSHIFT [facility] Last Admin: 12/04/24 16:34 Dose: 3 ml Spironolactone (Spironolactone 25 Mg Tablet) 50 mg PO BID@0900,1800 [facility]; Protocol Last Admin: 12/04/24 09:50 Dose: 50 mg Tamsulosin HCl (Tamsulosin Hcl 0.4 Mg Capsule) 0.8 mg PO BEDTIME [facility] Last Admin: 12/03/24 19:45 Dose: 0.8 mg Trimethoprim/Sulfamethoxazole (Sulfamethox/Trimeth 800/160 Tablet) 1 tab PO Q12H [facility] Last Admin: 12/04/24 09:50 Dose: 1 tab Home Medications ?Medication ?Instructions ?Recorded ?Confirmed ?Last Taken ?Type gabapentin 600 mg tablet 600 mg PO BID 10/27/24 11/27/24 Unknown History lactulose 10 gram/15 mL oral 30 g PO TID 10/27/24 11/27/24 Unknown History solution (Enulose) Physical Exam Vital Signs: Vital Signs: Last Vital Signs Temp 98.5 F 12/04/24 15:37 Pulse 68 12/04/24 15:37 Resp 18 12/04/24 15:37 BP 105/58 L 12/04/24 15:37 Pulse Ox 92 12/04/24 15:37 O2 Del Method Room Air 12/04/24 15:37 O2 Flow Rate 2 12/01/24 13:30 BMI result Body Mass Index 38.4 Const: General: cooperative HEENT: Head: Yes normal to inspection Face and sinus: Yes normal facial exam Mouth: Normal oral and palatal mucosa present Teeth and gingiva: dentition normal Eyes: General: appearance normal, both eyes and all related structures Pupils: Equal, round and reactive pupils present Resp: Effort & Inspection: normal respiratory effort Cardio: Rate: regular rate Rhythm: regular rhythm GI: Palpation (GI): Soft to palpation and nontender : General: Yes no CVA tenderness Back/Spine/Pelvis: Back: no CVA tenderness Skin: General skin exam: no rashes or lesions noted Neuro: General: moves all extremities Cranial nerves: Yes Equal, round and reactive pupils present Extrem: Other: swollen nodular scrotum,bilateral legs,chronic and no heat Psych: Appearance: grossly normal Results Labs 12/03/24 07:30 12/04/24 06:15 Labs: BMP 12/04/24 06:15 Sodium 136 Potassium 3.7 Chloride 99 Carbon Dioxide 31 H Creatinine 0.80 Microbiology Microbiology Results: Microbiology 11/27/24 11:04 Blood - Venous Blood Culture - Final No growth after 5 days. 11/30/24 06:48 Blood - Venous Blood Culture - Preliminary No growth after 48 hours. 11/27/24 11:04 Blood - Venous Blood Culture - Final Acinetobacter species 11/27/24 Unknown Urine clean catch - Clean Catch Midstream Urine Culture - Final Klebsiella pneumoniae Assessment and Plan (1) Scrotal edema: Status: Acute (2) Homeless: Status: Acute (3) Edema: Status: Acute Plan This looks all chronic. There is no fever or legs with redness or heat or indication of acute infection. Stop antibiotics. Manage edema.
[2024-12-04] MEDS: Tamsulosin HCL 0.4 MG CAPSULE 0.8 MG PO (19:54)
[2024-12-04] MEDS: HYDROmorphone HCl 0.5 MG/0.5 ML SYRINGE IVPUSH (23:52)
[2024-12-05] VITALS (8 sets, daily range): BP systolic 94–121; BP diastolic 52–73; PULSE 61–66; RESP 15–18; TEMP 36.3–37.1; O2SAT 93–98
[2024-12-05 06:11] LABS: Creatinine Clr Calc Pharmacy 90.6; Estimated Glomerular Filt Rate > 60
--- NOTE | 2024-12-05 08:35 | MHC.CM.PN ---
CM spoke to Dulce @ [facility] @ [phone], who indicated that Patient was not active with them, instead active with [facility]. CM spoke to [facility] @ [phone], who indicated that he has been dc'd from their clinic. Per Patient[facility] he returned to the streets and went without his Methadone. [facility]O has informed [facility] that Patient does not appear to be active with a home Methadone Clinic. CM awaits instructions from [facility] as to how to proceed. [facility] has their requested information.CARLITO will continue to follow.
[2024-12-05] MEDS: Sulfamethox/Trimeth 800/160 TABLET 1 TAB PO ×2 (08:57→22:21)
[2024-12-05] MEDS: methADONE HCl 20 MG/2 ML ORAL.CONC 30 MG PO (08:57)
[2024-12-05] MEDS: Magnesium Oxide 400 MG TABLET PO ×2 (08:58→18:05)
[2024-12-05] MEDS: Apixaban 5 MG TABLET PO ×2 (08:59→22:21)
[2024-12-05] MEDS: 0.9 % Sodium Chloride Flush 3 ML SYRINGE IVFLUSH ×3 (09:00→22:23)
[2024-12-05] MEDS: Ferrous Sulfate 324 MG TABLET.DR PO (09:00)
[2024-12-05] MEDS: Gabapentin 600 MG TABLET PO ×2 (09:00→22:20)
[2024-12-05] MEDS: Ammonium Lactate 12 % Cream 140 GM TUBE 1 APPL TOPICAL ×2 (09:01→22:23)
[2024-12-05] MEDS: Nystatin Powder 15 GM BOTTLE 1 APPL TOPICAL ×3 (09:01→22:24)
--- NOTE | 2024-12-05 09:47 | MHC.CM.PN ---
Addendum entered by Whitney Foley 12/05/24 09:55: CM received a call from [employer]; Patient does not have to call on ; Case is going under Doctor Review. CM awaits further instructions from [employer]. Original Note: [facility], [facility]O spoke with [employer] @ [phone] ([employer]) who explained that because Patient has no Home Clinic, he will need to call [employer] himself on , 12/07/24 for an appointment for a walk-in/same day visit.
[2024-12-05] MEDS: Acetaminophen 325 MG TABLET 650 MG PO (10:50)
[2024-12-05] MEDS: rifAXIMin 550 MG TABLET PO ×2 (10:50→22:21)
--- NOTE | 2024-12-05 11:56 | MHC.RECOVRN ---
T/W placed call to [facility] to inquire on pt's status for ongoing MOUD. Pt is currently inactive. In order to become active a new referral needs to be sent over or pt. needs to come to walk in hours. Will disucss with Maria Dolores Murillo NP and F/U as appropriate.
--- NOTE | 2024-12-05 14:28 | HO.PM.IMPN ---
Subjective Subjective Date of Service: 12/05/24 Interval History: feeling better, pain is better and significant scrotal swelling but no difficulty with urination otherwise no other complaints Physical Exam Vital Signs: Vital Signs: Last Vital Signs Temp 97.4 F 12/05/24 11:21 Pulse 61 12/05/24 11:21 Resp 18 12/05/24 11:21 BP 102/59 L 12/05/24 11:21 Pulse Ox 93 12/05/24 11:21 O2 Del Method Room Air 12/05/24 11:21 O2 Flow Rate 2 12/01/24 13:30 BMI result Body Mass Index 38.4 Objective Data Active Medications Acetaminophen (Acetaminophen 325 Mg Tablet) 650 mg PO Q6H PRN PRN Reason: Pain, Mild 1-3,fever,headache Last Admin: 12/05/24 10:50 Dose: 650 mg Documented By: MATTI Apixaban (Apixaban 5 Mg Tablet) 5 mg PO BID [facility] Last Admin: 12/05/24 08:59 Dose: 5 mg Documented By: MATTI Calcium Carbonate (Calcium Carbonate 750 Mg Tab.Chew) 750 mg PO Q4H PRN PRN Reason: Heartburn Ferrous Sulfate (Ferrous Sulfate 324 Mg Tablet.Dr) 324 mg PO DAILY [facility] Last Admin: 12/05/24 09:00 Dose: 324 mg Documented By: MATTI Furosemide (Furosemide 40 Mg/4 Ml Vial) 40 mg IVPUSH BID@0900,1800 [facility]; Protocol Last Admin: 12/05/24 09:03 Dose: Not Given Documented By: MATTI Non-Admin Reason: Decreased Blood Pressure Gabapentin (Gabapentin 600 Mg Tablet) 600 mg PO BID [facility] Last Admin: 12/05/24 09:00 Dose: 600 mg Documented By: MATTI Lactic Acid (Ammonium Lactate 12 % Cream 140 Gm Tube) 1 appl TOPICAL BID [facility]; Protocol Last Admin: 12/05/24 09:01 Dose: 1 appl Documented By: MATTI Lactulose (Lactulose 20 Gm/30 Ml Solution) 30 gm PO TID [facility] Last Admin: 12/05/24 09:01 Dose: Not Given Documented By: MATTI Non-Admin Reason: Patient Refused Magnesium Hydroxide (Milk Of Magnesia 30 Ml Oral.Susp) 30 ml PO DAILY PRN PRN Reason: Constipation Magnesium Oxide (Magnesium Oxide 400 Mg Tablet) 400 mg PO BIDPC [facility] Last Admin: 12/05/24 08:58 Dose: 400 mg Documented By: MATTI Melatonin (Melatonin 3 Mg Tablet) 6 mg PO BEDTIME PRN PRN Reason: Insomnia Methadone HCl (Methadone Hcl 20 Mg/2 Ml Oral.Conc) 30 mg PO DAILY@0800 [facility] Last Admin: 12/05/24 08:57 Dose: 30 mg Documented By: MATTI Co-signed By: FRANCO Nadolol (Nadolol 20 Mg Tablet) 10 mg PO DAILY [facility]; Protocol Last Admin: 12/05/24 09:02 Dose: Not Given Documented By: MATTI Non-Admin Reason: Decreased Blood Pressure Nystatin (Nystatin Powder 15 Gm Bottle) 1 appl TOPICAL TID [facility]; Protocol Last Admin: 12/05/24 09:01 Dose: 1 appl Documented By: MATTI Oxycodone HCl (Oxycodone Hcl Immed Release 5 Mg Tablet) 5 mg PO Q6H PRN PRN Reason: Pain, Severe (Pain Scale 7-10) Rifaximin (Rifaximin 550 Mg Tablet) 550 mg PO BID [facility] Last Admin: 12/05/24 10:50 Dose: 550 mg Documented By: MATTI Sodium Chloride (0.9 % Sodium Chloride Flush 3 Ml Syringe) 3 ml IVFLUSH QSHIFT [facility] Last Admin: 12/05/24 09:00 Dose: 3 ml Documented By: MATTI Spironolactone (Spironolactone 25 Mg Tablet) 50 mg PO BID@0900,1800 [facility]; Protocol Last Admin: 12/05/24 09:02 Dose: Not Given Documented By: MATTI Non-Admin Reason: Decreased Blood Pressure Tamsulosin HCl (Tamsulosin Hcl 0.4 Mg Capsule) 0.8 mg PO BEDTIME [facility] Last Admin: 12/04/24 19:54 Dose: 0.8 mg Documented By: ELIAS Trimethoprim/Sulfamethoxazole (Sulfamethox/Trimeth 800/160 Tablet) 1 tab PO Q12H [facility] Last Admin: 12/05/24 08:57 Dose: 1 tab Documented By: MATTI Labs 12/03/24 07:30 12/06/24 06:50 Labs: Laboratory Results - last 24 hr 12/05/24 05:32 Hold Purple Top SEE NOTE Estim Creat Clear Calc 90.6 Estimated GFR > 60 Microbiology Microbiology Results: Microbiology 11/30/24 06:48 Blood Culture - Final Blood - Venous No growth after 5 days. Assessment and Plan (1) Portal vein thrombosis: Status: Chronic Plan 69yo M with decompensated HCV/EtOH cirrhosis, hx variceal bleeding s/p TIPS, hx portal venous thrombosis previously anticoagulated with enoxaparin, polysubstance abuse, medication noncompliance; presenting with worsening leg and scrotal swelling; found to have sepsis from scrotal cellulitis + pyelonephritis as well as new portal/splenic/superior mesenteric vein thrombosis; found to have Acenitobacter bacteremia + Klebsiella UTI portal, splenic, and superior mesenteric vein thrombosis - Heme consulted: no thrombectomy recommended; was on lovenox and changed to apixiban 12/02 sepsis due to scrotal cellulitis, Klebsiella pneumoniae pyelonephritis, and Acenitobacter bacteremia - improving but still with significant scrotal and penile edema - was on vancomycin + piperacillin-tazobactam 11/27-11/30. changed to meropenem 11/30-12/02. Repeat BCx 11/30 clear. Per ID, 14d of SMX-TMP, started 12/02, end date 12/16, but was reassess by ID and recommends Abx cessation as most of findings are chronic - Urology following, no surgery indicated decompensated HCV/EtOH cirrhosis with peripheral and scrotal edema - continue IV furosemide, PO spironolactone; monitor electrolytes daily - EGD done 12/[address] Valadez: EGD Impressions:? Small varices Portal hypertensive gastropathy Portal hypertensive duodenopathy Previously placed biliary and pancreatic duct stent Recommendations:?? Start carvedilol 3.125 mg BID for variceal bleeding prophylaxis Recommend CT abd/pel with IV contrast in 4 weeks from prev to r/o propagation of thromboses As previously advised, he should also follow up with [facility], where the BD and PD stents were initially placed, for removal of these stents - BP was too low to start Coreg; giving nadolol instead hypoK - repleted hypoMg - repleted; continue maintenance dosing hepatic encephalopathy - continue rifaximin and lactulose pancytopenia due to cirrhosis - continue to monitor counts, which are improving ROMAN - continue PO Fe neuropathic pain - gabapentin polysubstance abuse - Addiction Medicine consulted; continue methadone - HBV immune from prior infection, recent HIV serology + HCV viral load negative VTE ppx - apixaban dispo - PT consulted, plan STR. Discussed with HCP/niece Chantel who would like him transitioned to LTC as he is homeless In my clinical judgment, the patient requires continued inpatient hospitalization for the following reasons: cellulitis, bacteremia. Placement Total time managing care of this patient today: 45 minutes. Quality Stroke Does the patient have a stroke diagnosis?: No VTE Prior VTE?: No VTE Risk Level:: Medical - moderate - high VTE Device Contraindication: Treatment Not Indicated VTE Drug Contraindication: N/A - Med Ordered
[2024-12-05] MEDS: Lactulose 20 GM/30 ML SOLUTION 30 GM PO (18:04)
[2024-12-05] MEDS: Tamsulosin HCL 0.4 MG CAPSULE 0.8 MG PO (22:20)
[2024-12-06] VITALS: BP 115/70; PULSE 65; RESP 18; TEMP 36.8; O2SAT 92
[2024-12-06 03:49] VITALS: BP 112/61; PULSE 73; RESP 18; TEMP 36.8; O2SAT 93
[2024-12-06 07:25] VITALS: BP 102/54; PULSE 65; RESP 18; TEMP 36.8; O2SAT 92
[2024-12-06 07:31] LABS: Creatinine Clr Calc Pharmacy 81.8; Estimated Glomerular Filt Rate > 60
[2024-12-06] MEDS: Apixaban 5 MG TABLET PO (09:36)
[2024-12-06] MEDS: Ferrous Sulfate 324 MG TABLET.DR PO (09:36)
[2024-12-06] MEDS: Magnesium Oxide 400 MG TABLET PO (09:36)
[2024-12-06] MEDS: Sulfamethox/Trimeth 800/160 TABLET 1 TAB PO (09:36)
[2024-12-06] MEDS: Gabapentin 600 MG TABLET PO (09:36)
[2024-12-06] MEDS: oxyCODONE HCl Immed Release 5 MG TABLET PO (09:37)
[2024-12-06] MEDS: rifAXIMin 550 MG TABLET PO (09:37)
[2024-12-06] MEDS: Lactulose 20 GM/30 ML SOLUTION 30 GM PO (09:37)
[2024-12-06] MEDS: Spironolactone 25 MG TABLET 50 MG PO (09:37)
[2024-12-06] MEDS: nadoloL 20 MG TABLET 10 MG PO (09:37)
[2024-12-06] MEDS: methADONE HCl 20 MG/2 ML ORAL.CONC 30 MG PO (09:38)
[2024-12-06] MEDS: Furosemide 40 MG/4 ML VIAL IVPUSH (09:38)
--- NOTE | 2024-12-06 09:42 | MHC.CM.PN ---
Per [facility], Patient is all set to start with them tomorrow for Patient's Methadone; CM has informed [facility] and inquired if they have obtained [facility] auth. CM will follow.
[2024-12-06] MEDS: 0.9 % Sodium Chloride Flush 3 ML SYRINGE IVFLUSH (09:44)
[2024-12-06 09:50] VITALS: BP 103/55
--- NOTE | 2024-12-06 10:20 | P.DS_ITS ---
DS: Providers Provider Date of Service: 12/06/24 Date of admission: 11/27/24 16:28 Date of discharge: 12/06/24 Primary care physician: Maria Dolores Hooper MD Consults: 11/27/24 19:01 Consult to Gastroenterology Routine Consulting Provider: Brenda Valadez Reason for consultation: Portal, splenic, and messenteric vein thrombi 11/27/24 19:15 Consult to Wound Care Routine Reason for consultation: Leg lichenification; beefy red rash of scrotum, groin, and abdominal folds 11/27/24 21:24 Addiction Medicine Provider Routine Consulting Provider: Addiction Covering Reason for consultation: daily heroin use, on methadone 2 months ago. 11/28/24 09:14 Consult to Urology Routine Consulting Provider: [facility] Reason for consultation: scrotal cellulitis with gas pockets 11/28/24 12:18 Consult to Hematology / Oncology Routine Consulting Provider: [facility] Oncology/Hematology Reason for consultation: thrombectomy for splanchnic venous thrombosis??? 11/30/24 09:09 Consult to Infectious Diseases Routine Consulting Provider: [facility] Reason for consultation: scrotal cellulitis, Acenitobacter bacteremia, Klebsiella UTI DS: Diagnosis Discharge Diagnosis (1) Portal vein thrombosis: Status: Chronic DS: Summary Hospital Course Hospital Course: admission hpi Chief Complaint: Leg and scrotal swelling Pt is a 69-year-old male with a PMH significant for?HTN, hepatic cirrhosis complicated by pancytopenia and portal vein thrombosis previously anticoagulated with Lovenox, hx of variceal bleeding s/p tips, polysubstance use, alcohol use disorder, GERD, and long hx of medication noncompliance who presents to the ED with?swelling and pain in legs and scrotum x3 days. Pt reports pain and swelling so bad has been unable to move his legs or walk. No fever or chills. Denies shortness of breath. No chest pain/pressure, palpitations. Denies nausea, vomiting, abdominal pain. Continues to drink despite cirrhosis and s/p tips, 3-5 beers daily with last drink yesterday night. Also snorts heroin, last used yesterday. Pt currently homeless and living out of a car, has not been taking prescription medications for many months. Of note, pt with hx of portal vein thrombosis previously anticoagulated on Lovenox, though with long hx of medication noncompliance. Imaging on 07/31/2024 and again on 11/02/2024 showed patent portal and splenic veins. In the ED pt was tachycardic up to 122, and with low-grade fever of 99.0. Labs were significant for stable pancytopenia in line with previous, hyponatremia 133, glucose 338, initial lactic acid 3.3 with repeat 2.5 and 2.3, T bili 2.0, AST 46, alk-phos 242, and ammonia 74. UA positive for UTI. Tox screen positive for opiates, fentanyl, and ethyl alcohol 51. CT?of abdomen and pelvis showed thrombus within portions of main portal vein, splenic vein, and branch of superior mesenteric vein new since prior report. Also showed likely cellulitis of scrotum without evidence of abscess, and question of possible pyelonephritis. EKG demonstrated normal sinus rhythm without evidence of significant ischemia. Pt was treated in the ED with nystatin furosemide, IVF, lactulose, therapeutic L ovenox, vanc, and Zosyn. Pt is admitted to the hospital for treatment and further evaluation of scrotal and lower extremity swelling in the setting of scrotal cellulitis, pyelonephritis, and portal vein thrombosis. hospital course: 69yo M with decompensated HCV/EtOH cirrhosis, hx variceal bleeding s/p TIPS, hx portal venous thrombosis previously anticoagulated with enoxaparin, polysubstance abuse, medication noncompliance; presenting with worsening leg and scrotal swelling; found to have sepsis from scrotal cellulitis + pyelonephritis as well as new portal/splenic/superior mesenteric vein thrombosis; found to have Acenitobacter bacteremia + Klebsiella UTI portal, splenic, and superior mesenteric vein thrombosis --Heme consulted: no thrombectomy recommended; Was initially treated with lovenox and changed to apixiban 12/02 and to continue indefinately sepsis due to scrotal cellulitis, Klebsiella pneumoniae pyelonephritis, and Acenitobacter bacteremia, improving. He was treated with vancomycin + piperacillin-tazobactam 11/27-11/30. changed to meropenem 11/30-12/02. Repeat BCx 11/30 clear. Per ID, 14 days of treatment with Bactrime DS, started 12/02, end date 12/16 Was seen by Urology and no indication for intervention Decompensated HCV/EtOH cirrhosis with peripheral and scrotal edema He has been on IV furosemide, changing to PO at discharge, PO spironolactone; BUN/Creatine stable, - EGD done 12/[address] Valadez: EGD Impressions:? * Small varices * Portal hypertensive gastropathy * Portal hypertensive duodenopathy * Previously placed biliary and pancreatic duct stentRecommendations:?? * Start carvedilol 3.125 mg BID for variceal bleeding prophylaxis * Recommend CT abd/pel with IV contrast in 4 weeks from prev to r/o propagation of thromboses * As previously advised, he should also follow up with [facility], where the BD and PD stents were initially placed, for removal of these stents - BP was too low to start Coreg; giving nadolol instead hypoK- repleted hypoMg- repleted; continue maintenance dosing hepatic encephalopathy - continue rifaximin and lactulose pancytopenia due to cirrhosis - continue to monitor counts, which are improving ROMAN continue PO Iron neuropathic pain - gabapentin polysubstance abuse - Addiction Medicine consulted; continue methadone - HBV immune from prior infection, recent HIV serology + HCV viral load negative VTE ppx - apixaban dispo To short term rehab for less than 30 days Time Attestation Discharge Coordination Time (in mins): 50 Quality: Safe Use of Opioids Does Pt have an Active Cancer Diagnosis on the Problem List?: No Quality: Stroke Does the patient have a stroke diagnosis?: No Physical Exam Vital Signs: Vital Signs: Last Vital Signs Temp 98.3 F 12/06/24 07:25 Pulse 65 12/06/24 07:25 Resp 18 12/06/24 07:25 BP 103/55 L 12/06/24 09:50 Pulse Ox 92 12/06/24 07:25 O2 Del Method Room Air 12/06/24 07:25 O2 Flow Rate 2 12/01/24 13:30 BMI result Body Mass Index 38.4 Gen: in no acute distress Lungs: clear to auscultation bilaterally Heart: regular rate and rhythm, no murmurs Abd: soft, non-tender, non-distended : extensive scrotal erythema and edema Ext: severe bilateral leg edema with chronic venous stasis changes/hyperkeratosis/hyperpigmentation Skin: warm/well-perfused Neuro: alert and oriented x3, no focal findings; no asterixis Psych: appropriate affect DS: Data Data Completed and Pending Labs on day of discharge: Laboratory Results - last 24 hr 12/06/24 06:50 Hold Purple Top SEE NOTE Creatinine 0.93 Estim Creat Clear Calc 81.8 Estimated GFR > 60 Discharge Plan Discharge Anticipated Discharge Date/Time: 12/06/24 10:21 Patient Disposition: Xfer SNF Discharge Diagnosis: scrotal cellulitis, UTI, bacteremia, deceompensated cirrhosis, portal vein thrombosis Referrals: [facility] [Outside] - 1 Week Maria Dolores Mcduffie MD [Primary Care Provider] - 1 Week Discharge Medications: New spironolactone 25 mg Tablet 50 mg PO BID@0900,1800 Qty: 180 0RF Protocol: Hold for SBP< HOLD for SBP < : 90 methadone [Methadose] 10 mg/mL Concentrate 30 mg PO DAILY@0800 Qty: 30 0RF Rx Instructions: Partial Fill upon patient request. furosemide [Lasix] 40 mg tablet 40 mg PO BID Qty: 180 0RF sulfamethoxazole-trimethoprim 800-160 mg Tablet 1 tab PO Q12H Qty: 18 0RF tamsulosin 0.4 mg Capsule 0.8 mg PO BEDTIME Qty: 90 0RF Eliquis 5 mg Tablet 5 mg PO BID Qty: 180 0RF melatonin 3 mg Tablet 6 mg PO BEDTIME PRN (Reason: Insomnia) Qty: 60 0RF nadolol 20 mg Tablet 10 mg PO DAILY Qty: 60 0RF Protocol: Hold for SBP/HR < HOLD for SBP < : 90 HOLD for HR < : 60 magnesium oxide 400 mg (241.3 mg magnesium) Tablet 400 mg PO BIDPC Qty: 180 0RF ammonium lactate 12 % Cream 1 appl topical BID Qty: 60 0RF Protocol: Apply to: Apply to: bilateral legs nystatin [Nyamyc] 100,000 unit/gram Powder 1 appl topical TID Qty: 30 0RF Protocol: Apply to: Apply to: Groin and abd folds oxycodone 5 mg Tablet 5 mg PO Q6H PRN (Reason: Pain, Severe (Pain Scale 7-10)) Qty: 15 0RF Rx Instructions: Partial Fill upon patient request. Continued ferrous sulfate 324 mg (65 mg iron) Tablet,Delayed Release (Dr/Ec) 324 mg PO DAILY Qty: 30 0RF Xifaxan 550 mg Tablet 550 mg PO BID Qty: 60 0RF lactulose [Enulose] 10 gram/15 mL solution 30 g PO TID gabapentin 600 mg tablet 600 mg PO BID Discontinued methadone [Methadose] 10 mg/mL Concentrate 40 mg PO DAILY@0800 Qty: 1 0RF Rx Instructions: Partial Fill upon patient request. furosemide 40 mg tablet 40 mg PO DAILY Qty: 30 0RF spironolactone 50 mg tablet 50 mg PO DAILY Qty: 30 0RF Discharge Orders: Discharge Order (Routine); Ordered 12/06/24 Ordered By: Timi Forman Diet: Advance to usual diet Activity on Discharge: As tolerated Stand Alone Forms: Patient Portal Discharge page Print Language: Iranian Care Plan Goals: recovert from scrotal cellulitis and edema, acinatoractere bacteremia and klebsiela [facility] Health Concerns: advanced cirrhosis of liver portal vein thrombosis scrotal jacob and cellulitis Plan of Treatment: take Bactrim DS 1 tab bid until December 16 continue eliquis for portal vein thrombisos take Lasix 40 mg bid and aldactone 50 mg bid for cirrhosis, scrotal edema and cellulitis To short term rehab for less than 30 days Assessment: see above
[2024-12-06 10:42] LABS: Anion Gap 9 (12-20); Carbon Dioxide 30 mmol/L (22-29); Chloride 101 mmol/L (96-108); Potassium 4.3 mmol/L (3.3-5.1); Sodium 136 mmol/L (135-145)
--- NOTE | 2024-12-06 10:53 | MHC.CM.PN ---
Per MD in ROUNDS, Patient is medically cleared for dc to SNF/STR today. Patient will dc to [facility] today at 1:30 PM, via [facility] ([facility] auth # for transport is [id number]). CM met with Patient at bedside and addressed IMM with him, providing Patient with the original and a copy has been placed on the chart. CM left a detailed message for Niece/HCP/Chantel @ [phone], informing her of the dc plan. Patient can start Guest Dosing with [facility] tomorrow and Last Dose Letter has been sent to [facility].
[2024-12-06 11:09] VITALS: BP 107/58; PULSE 66; RESP 18; TEMP 37.1; O2SAT 93
[2024-12-06] MEDS: Ammonium Lactate 12 % Cream 140 GM TUBE 1 APPL TOPICAL (11:25)
--- NOTE | 2024-12-06 12:36 | MHC.CM.PN ---
Narcotic Script has been faxed to Paula @ [phone].
--- NOTE | 2024-12-06 18:26 | P.CDIM_ITS ---
PROVIDER RESPONSE TEXT: To clarify, the appropriate diagnosis supported by the clinical indicators: Mild QUERY TEXT: PHYSICIAN'S DOCUMENTATION REQUEST Date of Query: 12/04/2024 11:03 AM EDT Patient Name: Benton Souza Admit Date: 11/27/2024 Dear Timi Forman MD, A review of the medical record indicates additional documentation may be needed. Please review below and update the documentation accordingly. Documentation includes the diagnosis of malnourished within the GI Consultation note 12/01/24: Malnourished, disheveled Homeless TP 6.2 Albumin 2.4 Clinical nutrition notes 11/28 - Nutritional problems Identified: Yes BMI 38.4 If possible, please provide additional specificity regarding the severity of the malnutrition using t he above information: Mild Moderate Severe Other specified Other (explain) Clinically unable to determine (explain) Thank you, Ml Berrios, CCS, CDIS Use of terms such as suspected, likely, concern for, or probable (associated with a specific diagnosi s that is being evaluated, monitored, or treated as if it exists) are acceptable and can be coded in the inpatient se tting, when documented at the time of discharge. Please use your independent medical judgment in providing your response. THIS QUERY IS PART OF THE PERMANENT MEDICAL RECORD
== END 2024-12-06 14:40 | disposition skilled nursing facility (03) | DRG 853 ==
LOC: HO.ED 17:01 → HO.EDOVER 17:22 → HO.IMC 19:55
PROVIDERS: Family Medicine; Physician Assistant; Registered Nurse Emergency; Student in an Organized Health Care Education/Training Program; Admitting Provider Internal Medicine; Emergency Provider Emergency Medicine; PCP Internal Medicine; Visit Provider Internal Medicine
PROC: 0DJ08ZZ Inspection of Upper Intestinal Tract, Via Natural or Artificial Opening Endoscopic (ICD-10-PCS; CPT 43235; principal; 2024-12-01 13:00)
DX: A41.9 Sepsis, unspecified organism (principal); I81 Portal vein thrombosis; K55.059 Acute (reversible) ischemia of intestine, part and extent unspecified; F11.20 Opioid dependence, uncomplicated; Z59.01 Sheltered homelessness; E72.20 Disorder of urea cycle metabolism, unspecified; D61.818 Other pancytopenia; N10 Acute pyelonephritis; I85.10 Secondary esophageal varices without bleeding; K76.6 Portal hypertension; E44.1 Mild protein-calorie malnutrition; F10.90 Alcohol use, unspecified, uncomplicated; N49.2 Inflammatory disorders of scrotum; F19.10 Other psychoactive substance abuse, uncomplicated; E83.42 Hypomagnesemia; Z68.38 Body mass index [BMI] 38.0-38.9, adult; G62.9 Polyneuropathy, unspecified; D50.9 Iron deficiency anemia, unspecified; K76.82 Hepatic encephalopathy; B96.1 Klebsiella pneumoniae [K. pneumoniae] as the cause of diseases classified elsewhere; B37.2 Candidiasis of skin and nail; K31.89 Other diseases of stomach and duodenum; E87.6 Hypokalemia; K70.30 Alcoholic cirrhosis of liver without ascites; F17.210 Nicotine dependence, cigarettes, uncomplicated; Y90.2 Blood alcohol level of 40-59 mg/100 ml; Z71.6 Tobacco abuse counseling; Z91.148 Patient's other noncompliance with medication regimen for other reason; Z79.899 Other long term (current) drug therapy
CPT/HCPCS: 36415; 74177; 76870; 80048; 80051; 80053; 80076; 80202; 80307; 81001; 82140; 82565; 83605; 83690; 83735; 83880; 85025; 85027; 85610; 85730; 86140; 86850; 86900; 86901; 87040; 87077; 87086; 87088; 87186; 87205; 93005; 97110; 97116; 97162; 99285; J1171; J1650; J1938; J2003; J2185; J2543; J2704; J3010; J3370; J3371; J3480; J7120; P9047; Q9967; S9485

== ENCOUNTER → 2024-11-27 10:39 | Outpatient (BNV) | payer OTHER, SELFPAY | PROVIDERS: Emergency Provider Emergency Medicine; Visit Provider Radiology Diagnostic Radiology | DX: K80.20 Calculus of gallbladder without cholecystitis without obstruction (principal); K74.60 Unspecified cirrhosis of liver; N28.89 Other specified disorders of kidney and ureter; I81 Portal vein thrombosis; K76.6 Portal hypertension; N49.2 Inflammatory disorders of scrotum | CPT/HCPCS: 74177 ==

== ENCOUNTER → 2024-11-27 11:23 | Outpatient (BNV) | payer OTHER, SELFPAY | PROVIDERS: Admitting Provider Student in an Organized Health Care Education/Training Program; Emergency Provider Emergency Medicine; Visit Provider Internal Medicine Cardiovascular Disease | DX: R94.31 Abnormal electrocardiogram [ECG] [EKG] (principal); R00.0 Tachycardia, unspecified | CPT/HCPCS: 93010 ==

== ENCOUNTER 2024-11-27 16:28 | Outpatient (BNV) | payer OTHER, SELFPAY | END 2024-11-29 09:26 | PROVIDERS: Admitting Provider Student in an Organized Health Care Education/Training Program; Emergency Provider Emergency Medicine; PCP Internal Medicine; Visit Provider Radiology Diagnostic Radiology | DX: N49.2 Inflammatory disorders of scrotum (principal) | CPT/HCPCS: 76870; 93975 ==

== ENCOUNTER → 2024-11-27 16:28 | Outpatient (BNV) | payer OTHER, SELFPAY | PROVIDERS: Admitting Provider Internal Medicine; Emergency Provider Emergency Medicine; PCP Internal Medicine; Visit Provider Internal Medicine | DX: N50.89 Other specified disorders of the male genital organs (principal); R60.9 Edema, unspecified; Z59.00 Homelessness unspecified | CPT/HCPCS: 99232 ==

== ENCOUNTER → 2024-11-27 16:28 | Outpatient (BNV) | payer OTHER, SELFPAY | PROVIDERS: Admitting Provider Student in an Organized Health Care Education/Training Program; Emergency Provider Emergency Medicine; PCP Internal Medicine; Visit Provider Internal Medicine | DX: I81 Portal vein thrombosis (principal) | CPT/HCPCS: 99222 ==

== ENCOUNTER → 2024-11-27 16:28 | Outpatient (BNV) | payer OTHER, SELFPAY | PROVIDERS: Admitting Provider Student in an Organized Health Care Education/Training Program; Emergency Provider Emergency Medicine; Visit Provider Nurse Practitioner Psychiatric/Mental Health | DX: F11.90 Opioid use, unspecified, uncomplicated (principal) | CPT/HCPCS: 99222; 99232 ==

== ENCOUNTER → 2024-11-27 16:28 | Outpatient (BNV) | payer OTHER, SELFPAY | PROVIDERS: Admitting Provider Student in an Organized Health Care Education/Training Program; Emergency Provider Emergency Medicine; Visit Provider Urology | DX: N49.2 Inflammatory disorders of scrotum (principal); N50.89 Other specified disorders of the male genital organs; N39.0 Urinary tract infection, site not specified | CPT/HCPCS: 99222 ==

== ENCOUNTER → 2024-11-27 16:28 | Outpatient (BNV) | payer OTHER, SELFPAY | PROVIDERS: Admitting Provider Student in an Organized Health Care Education/Training Program; Emergency Provider Emergency Medicine; PCP Internal Medicine; Visit Provider Internal Medicine | DX: K70.31 Alcoholic cirrhosis of liver with ascites (principal); N49.2 Inflammatory disorders of scrotum; I81 Portal vein thrombosis; Z59.00 Homelessness unspecified; Z95.828 Presence of other vascular implants and grafts; F10.90 Alcohol use, unspecified, uncomplicated; F11.90 Opioid use, unspecified, uncomplicated | CPT/HCPCS: 99232 ==

== ENCOUNTER → 2024-11-27 16:28 | Outpatient (BNV) | payer OTHER, SELFPAY | PROVIDERS: Admitting Provider Student in an Organized Health Care Education/Training Program; Emergency Provider Emergency Medicine; Visit Provider Student in an Organized Health Care Education/Training Program | DX: I81 Portal vein thrombosis (principal) | CPT/HCPCS: 99223; 99232 ==